=== PATIENT | female | born 1970 | race Caucasian/White ===

== ENCOUNTER 2018-07-03 14:06 | Outpatient (REF) | payer BC, SELFPAY ==
[2018-07-03 18:40] LABS: Bilirubin Negative (Negative); Blood Trace-intact (Negative); Clarity Sl Cloudy; Glucose Negative (Negative); Ketones Negative (Negative); Leukocyte Esterase Trace (Negative); Nitrite Negative (Negative); Specific Gravity 1.015 (1.005-1.025); Urobilinogen 0.2 EU/dL (Up TO 0.2)
[2018-07-03 19:35] LABS: Epithelial Cells Moderate HPF (Negative); Other Cells Negative (Negative); RBC 0-2 (0-2)
[2018-07-03 19:36] LABS: Bacteria Few HPF (Negative); C & S Indicated? No/Sq. Contamination; Casts Negative LPF (Negative); Crystals Negative HPF (Negative); Mucus Negative (Negative)
== END 2018-07-03 14:26 ==
LOC: NCHCN 14:06
PROVIDERS: PCP Nurse Practitioner Family; Visit Provider Family Medicine
DX: N32.89 Other specified disorders of bladder (principal); R10.30 Lower abdominal pain, unspecified
CPT/HCPCS: 81003; 81015

== ENCOUNTER 2018-07-07 12:04 | Inpatient (IN) | payer BC, SELFPAY ==
[2018-07-07 12:36] VITALS: BP 145/70; PULSE 93; RESP 18; TEMP 36.7; O2SAT 95
--- NOTE | 2018-07-07 13:29 | DI.CT_ITS ---
SYMPTOM/DIAGNOSIS: RLQ PAIN CT ABDOMEN AND PELVIS: CT scan of the abdomen and pelvis was performed following the uneventful administration of intravenous contrast material. The visualized lung bases are clear. There is diffuse decreased attenuation of the liver suggesting fatty infiltration. No evidence of an hepatic mass seen. The patient is status post cholecystectomy. No biliary ductal dilatation is present. The portal and superior mesenteric veins are patent. The pancreas, spleen and adrenal glands are unremarkable. The kidneys show normal and symmetric enhancement. There is a left renal cyst. No solid renal mass or obstruction is seen. The urinary bladder is intact. The reproductive organs are not visualized. The abdominal aorta is of normal caliber. No significant abdominal or pelvic ascites is present. There is diverticular disease of the descending and sigmoid colon. There is bowel wall thickening and pericolonic inflammatory change in the mid sigmoid colon consistent with acute diverticulitis. There are a few small foci of extraluminal air anterior to the affected sigmoid colon. There also appears to be a fluid collection anterior to the affected sigmoid colon and an abscess cannot be excluded. This measures approximately 4 cm. The remainder of the bowel is unremarkable. There is a normal appendix present. Note is made of a fat-containing infra-umbilical hernia. There is also a lower anterior wall hernia in the midline containing an unremarkable loop of bowel. Degenerative changes are seen in the spine. IMPRESSION: Findings consistent with acute sigmoid diverticulitis. A few foci of extraluminal air are seen adjacent to the affected bowel. There is a collection of fluid anterior to the affected bowel measuring approximately 4 cm in diameter and an abscess cannot be excluded. The findings were discussed with Sb Elkins of the Emergency Department on the date of the examination.
[2018-07-07] MEDS: Ondansetron 4 MG/2 ML VIAL IVP (13:52)
[2018-07-07] MEDS: Normal Saline 1,000 ML 1000 ML IV (13:52)
[2018-07-07] MEDS: MORPHine 10 MG/ML VIAL 4 MG IVP (13:52)
[2018-07-07 13:54] LABS: Abs Immature Grans 0.04 k/cumm (0.0-0.09); Absolute Basophil Count 0.04 k/cumm (0.0-0.2); Absolute Eosinophil Count 0.23 k/cumm (0.0-0.7); Absolute Lymphocyte Count 2.74 k/cumm (1.2-3.4); Absolute Monocyte Count 0.57 k/cumm (0.11-0.7); Absolute Neutrophil Count 5.26 k/cumm (1.2-6.7); Basophils % 0.5; Eosinophils % 2.6; HCT 42.5 % (36.0-46.0); HGB 14.4 g/dL (12.0-15.5); Immature Grans % 0.5; Lymphocytes % 30.9; Mean Corp. HGB Concentration 33.9 g/dL (32.0-36.0); Mean Corpuscular Hemoglobin 29.1 pg (27.0-33.0); Mean Corpuscular Volume 85.9 fL (80-95); Monocytes % 6.4; Neutrophils % 59.1; Platelet Count 258 x1000/uL (130-400); RBC 4.95 m/cumm (4.00-5.20); RBC Distribution Width 12.7 % (11.7-14.6); White Blood Cell Count 8.88 k/cumm (4.4-10.8)
[2018-07-07 14:05] LABS: Lipase 146 U/L (73-393)
[2018-07-07 14:08] LABS: ALT 36 U/L (12-78); AST 26 U/L (15-37); Albumin 3.2 g/dL (3.4-5.0); Alkaline Phosphatase 85 U/L (46-116); Anion Gap 13.4 mmol/L (3-11); BUN 10 mg/dL (7-18); Bilirubin, Total 0.4 mg/dL (0.2-1.0); CO2 24.6 mmol/L (21.0-32.0); Chloride 101 mmol/L (98-107); Glucose 121 mg/dL (70-100); Potassium 3.7 mmol/L (3.5-5.1); Sodium 139 mmol/L (136-145); Total Protein 8.3 g/dL (6.4-8.2)
[2018-07-07 15:00] LABS: Bilirubin Negative (Negative); Blood Negative (Negative); Clarity Clear; Glucose Negative (Negative); Ketones Negative (Negative); Leukocyte Esterase Negative (Negative); Nitrite Negative (Negative); Urobilinogen 0.2 EU/dL (Up TO 0.2)
--- NOTE | 2018-07-07 15:27 | ED.GENADUL_ITS ---
Discharge Plan Discharge Details Chief Complaint: Abd Prob Reason For Visit: PERFORATED DIVERTICULITIS Admit Date/Time: 07/07/18 16:46 Admit Provider: Renaldo Evangelista Attending Provider: Renaldo Evangelista Primary Care Provider: Danna Gonzalez ED Provider: Sb Elkins Discharge Data Discharge Date/Time-TO BE ENTERED AT DEPARTURE: 07/07/18 18:02 Medical Decision Making Patient presenting the emergency department for chief complaint of abdominal pain for the past 10 days. She states that this is suprapubic and saw primary care provider last week who thought it was a urinary tract infection and placed on Bactrim for last 3 days. Patient had a follow-up appointment today due to worsening of symptoms and they sent her to the emergency department. Patient has significant tenderness to the right lower quadrant without rebound but does have positive roving sign. Plan to check labs and CT image for concern for diverticulitis, appendicitis, or other abdominal pathology. Patient has reported full hysterectomy and oophorectomy so doubt any feminine anatomy etiology. Pending results patient given IV fluids, morphine, and Zofran. Review of labs is unremarkable nondiagnostic but review of CT imaging shows sigmoid colon diverticulitis with area of free air and fluid being seen so question of abscess. Contacted general surgery Dr. Chung for admission of the patient. He agreed to come down and evaluate the patient and admit the patient to his service. Patient was in agreement of this plan and remained stable throughout emergency department stay. Lab Data Lab results reviewed: Yes I reviewed the patient's lab results. HPI General Mode of arrival: ambulatory . Date/Time Provider Initiated Documentation: 07/07/18 12:30 . Limitations to Documentation: no limitations . Information obtained by: patient . History of Present Illness 47 year old F presents to the emergency department with the chief complaint of pelvic pain , described as moderate, with intensity rated at 7. Quality is described as aching and sharp, and is localized to the abdomen. Patient started experiencing this day(s) (4) and it has been constant. Patient did receive the following treatments prior to arrival, other Related Data Home Medications Medication Instructions Recorded Confirmed lisinopril 5 mg PO DAILY 07/07/18 07/07/18 metformin 1,000 mg PO BID 07/07/18 07/07/18 Allergies Allergy/AdvReac Type Severity Reaction Status Date / Time Penicillins Allergy Mild Hives Verified 07/07/18 16:45 metronidazole [From Flagyl] AdvReac Severe [place]/Vomi Verified 07/07/18 16:46 ting General Stated Complaint: Abd Prob SHY: 3 Review of Systems Constitutional Denies chills, Denies fever(s) and Reports poor appetite Cardiovascular Denies chest pain and Denies dyspnea Respiratory Denies dyspnea Gastrointestinal Reports as per HPI, Reports abdominal pain, Denies melena, Denies change in bowel habits, Denies constipation, Denies diarrhea, Reports nausea and Denies vomiting Genitourinary Denies hematuria, Reports pelvic pain, Denies urinary incontinence, Denies urinary hesitancy, Denies urinary urgency and Denies vaginal discharge Integumentary/Breasts Denies rash PFSH Family History Father CAD (coronary artery disease) AMI (acute myocardial infarction) Maternal Aunt Breast cancer Medical History DM2 (diabetes mellitus, type 2) (Chronic) Essential hypertension (Chronic) Morbid obesity (Chronic) Social History Smoking/Tobacco Use Status: Current every day Surgical History History of bilateral oophorectomies (Resolved) History of cholecystectomy (Resolved) History of ureter repair (Resolved) Status post complete hysterectomy (Resolved) Exam Const General: cooperative Orientation: alert, awake and oriented x3 Resp Effort & Inspection: normal respiratory effort and able to speak in complete sentences Auscultation: clear to auscultation bilaterally Cardio Rate: regular rate Rhythm: regular rhythm Heart Sounds: S1 normal and S2 normal GI Palpation: soft, no hepatosplenomegaly, not firm, no guarding, no masses, no pulsatile masses, not rigid, no splenomegaly and tender in the RLQ, at McBurney' s point and Rovsing's sign positive; not suprapubicly and Mcnair's sign negative Auscultation: normal bowel sounds Back/Spine/Pelvis Back: no CVA tenderness Neuro General: alert, awake, oriented x3, gait normal and moves all extremities Course Vital Signs Temperature 36.7 C 07/07/18 12:36 Pulse 93 H 07/07/18 12:36 Respiratory Rate 18 07/07/18 12:36 Blood Pressure 145/70 H 07/07/18 12:36 Pulse Oximetry 95 07/07/18 12:36 Temperature 36.7 C 07/07/18 12:36 Temperature Source Temporal Artery Scan 07/07/18 12:36 Pulse 93 H 07/07/18 12:36 Respiratory Rate 18 07/07/18 12:36 Respiratory Effort 07/07/18 12:39 Blood Pressure 145/70 H 07/07/18 12:36 Blood Pressure Position Sitting 07/07/18 12:36 Pulse Oximetry 95 07/07/18 12:36 Oxygen Delivery Method Room Air 07/07/18 12:36 Oxygen Flow Rate 0 07/07/18 12:36 Pain Level 7 07/07/18 12:36 Lab/Test Results Lab/Test Results: Laboratory Tests Range/Units 07/07/18 07/07/18 07/07/18 13:47 13:47 13:47 WBC (4.4-10.8) k/cumm 8.88 RBC (4.00-5.20) m/cumm 4.95 Hgb (12.0-15.5) g/dL 14.4 Hct (36.0-46.0) % 42.5 MCV (80-95) fL 85.9 MCH (27.0-33.0) pg 29.1 MCHC (32.0-36.0) g/dL 33.9 RDW (11.7-14.6) % 12.7 Plt Count (130-400) x1000/uL 258 MPV (8.0-11.0) fL 10.0 Immature Gran % 0.5 Neutrophils % 59.1 Lymphocytes % 30.9 Monocytes % 6.4 Eosinophils % 2.6 Basophils % 0.5 Absolute Neutrophils (1.2-6.7) k/cumm 5.26 Absolute Lymphocytes (1.2-3.4) k/cumm 2.74 Absolute Monocytes (0.11-0.7) k/cumm 0.57 Absolute Eosinophils (0.0-0.7) k/cumm 0.23 Absolute Basophils (0.0-0.2) k/cumm 0.04 Sodium (136-145) mmol/L 139 Potassium (3.5-5.1) mmol/L 3.7 Chloride (98-107) mmol/L 101 Carbon Dioxide (21.0-32.0) mmol/L 24.6 Anion Gap (3-11) mmol/L 13.4 H BUN (7-18) mg/dL 10 Creatinine (0.55-1.02) mg/dL 0.90 Estimated GFR/1.73 m2 (mL/min/1.73m2) >= 60.00 Glucose (70-100) mg/dL 121 H Calcium (8.5-10.1) mg/dL 9.0 Total Bilirubin (0.2-1.0) mg/dL 0.4 AST (15-37) U/L 26 ALT (12-78) U/L 36 Alkaline Phosphatase (46-116) U/L 85 Total Protein (6.4-8.2) g/dL 8.3 H Albumin (3.4-5.0) g/dL 3.2 L Lipase (73-393) U/L 146 Urine Color (Yellow) Urine Clarity Urine pH (5-8) Ur Specific [place] (1.005-1.025) Urine Protein (Negative) mg/dL Urine Ketones (Negative) mg/dL Urine Blood (Negative) Urine Nitrite (Negative) Urine Bilirubin (Negative) Urine Urobilinogen (Up TO 0.2) EU/dL Ur Leukocyte Esterase (Negative) Urine Glucose (Negative) mg/dL Range/Units 07/07/18 14:50 WBC (4.4-10.8) k/cumm RBC (4.00-5.20) m/cumm Hgb (12.0-15.5) g/dL Hct (36.0-46.0) % MCV (80-95) fL MCH (27.0-33.0) pg MCHC (32.0-36.0) g/dL RDW (11.7-14.6) % Plt Count (130-400) x1000/uL MPV (8.0-11.0) fL Immature Gran % Neutrophils % Lymphocytes % Monocytes % Eosinophils % Basophils % Absolute Neutrophils (1.2-6.7) k/cumm Absolute Lymphocytes (1.2-3.4) k/cumm Absolute Monocytes (0.11-0.7) k/cumm Absolute Eosinophils (0.0-0.7) k/cumm Absolute Basophils (0.0-0.2) k/cumm Sodium (136-145) mmol/L Potassium (3.5-5.1) mmol/L Chloride (98-107) mmol/L Carbon Dioxide (21.0-32.0) mmol/L Anion Gap (3-11) mmol/L BUN (7-18) mg/dL Creatinine (0.55-1.02) mg/dL Estimated GFR/1.73 m2 (mL/min/1.73m2) Glucose (70-100) mg/dL Calcium (8.5-10.1) mg/dL Total Bilirubin (0.2-1.0) mg/dL AST (15-37) U/L ALT (12-78) U/L Alkaline Phosphatase (46-116) U/L Total Protein (6.4-8.2) g/dL Albumin (3.4-5.0) g/dL Lipase (73-393) U/L Urine Color (Yellow) Yellow Urine Clarity Clear Urine pH (5-8) 6.0 Ur Specific [place] (1.005-1.025) 1.010 Urine Protein (Negative) mg/dL Negative Urine Ketones (Negative) mg/dL Negative Urine Blood (Negative) Negative Urine Nitrite (Negative) Negative Urine Bilirubin (Negative) Negative Urine Urobilinogen (Up TO 0.2) EU/dL 0.2 Ur Leukocyte Esterase (Negative) Negative Urine Glucose (Negative) mg/dL Negative
[2018-07-07] MEDS: Omnipaque 350 MG/ML 100 ML BTL IJ (15:45)
[2018-07-07] MEDS: HYDROmorphone 2 MG/ML VIAL 0.5 MG IVP (17:13)
--- NOTE | 2018-07-07 17:20 | HPE_ITS ---
Date of service: 07/07/18 Time of Service: 17:18 Assessment and Plan (1) Perforation of sigmoid colon due to diverticulitis: Start date: 07/07/18 Start time: 17:43 Current visit: Yes Status: Acute Reviewed the physical and diagnostic findings with Ms Parada. Recommended trial of conservative therapy with abx, pain control, fluids, bowel rest. I did discuss that this could fail, or she may need further imaging. Currently no drainable collection seen, but could still develop abscess; therefor may repeat CT A/P to see if a drainable collection develops, or may require surgery on emergent basis. She state her understanding of the plan. No promises made, or guarantees given. History of Present Illness Chief Complaint: Abdominal Pain Narrative: 47 y/o woman presents to the ER with 10 days of vague abdominal which has been progressively worsening. She has had associated nausea, vomiting , diarrhea. She was seen by her PCP and diagnosed with a UTI, culture growing E. coli, and started on bactrim. She failed to improved on abx after 4 days. She denies fever, chills. Work up in the ER showed perforated diverticulitis with free air. General surgery was consulted for admission. Review of Systems Constitutional Denies body ache(s), Denies chills, Reports difficulty sleeping, Reports fatigue , Denies fever(s), Denies headache(s), Reports malaise, Reports poor appetite and Reports weakness Eyes Denies blurry vision, Denies diplopia and Denies loss of vision ENT Denies abnormal hearing, Denies vertigo, Denies dizziness, Denies headache(s), Denies hearing loss, Denies hoarseness, Denies epistaxis and Denies tinnitus Cardiovascular Denies chest pain at rest, Denies syncope, Denies rapid heart rate, Denies irregular heart rhythm, Denies lightheadedness and Denies dyspnea on exertion Respiratory Denies chest congestion, Denies cough, Denies dyspnea on exertion and Denies wheezing Gastrointestinal Reports abdominal pain, Denies hematochezia, Denies constipation, Denies heartburn, Reports diarrhea, Reports nausea and Reports vomiting Genitourinary Denies dysuria, Denies urinary hesitancy and Denies urinary urgency Musculoskeletal Denies back pain, Denies myalgias, Denies arthralgias, Denies joint swelling and Denies stiffness Integumentary/Breasts Denies non-healing lesions, Denies unusual bruising and Denies jaundice Neurologic Denies abnormal hearing, Denies confusion, Denies vertigo, Denies dizziness, Denies syncope, Denies headache(s), Denies focal weakness, Denies loss of vision , Denies seizure-like activity and Reports weakness Psychiatric Denies abnormal sleep pattern, Denies confusion, Denies difficulty concentrating and Denies irritability Endocrine Reports fatigue Hematologic/Lymphatic Denies easy bleeding and Denies easy bruising Allergic/Immunologic Denies wheezing PFSH Family History Father CAD (coronary artery disease) AMI (acute myocardial infarction) Maternal Aunt Breast cancer Medical History DM2 (diabetes mellitus, type 2) (Chronic) Essential hypertension (Chronic) Morbid obesity (Chronic) Social History Smoking/Tobacco Use Status: Current every day Surgical History History of bilateral oophorectomies (Resolved) History of cholecystectomy (Resolved) History of ureter repair (Resolved) Status post complete hysterectomy (Resolved) Meds Home Medications Medication Instructions Recorded Confirmed Type lisinopril 5 mg PO DAILY 07/07/18 07/07/18 History metformin 1,000 mg PO BID 07/07/18 07/07/18 History Allergies Allergy/AdvReac Type Severity Reaction Status Date / Time Penicillins Allergy Mild Hives Verified 07/07/18 16:45 metronidazole [From Flagyl] AdvReac Severe [place]/Vomi Verified 07/07/18 16:46 ting Exam Const General: cooperative, well developed, in distress mild and ill appearing Nutritional Appearance: well nourished, obese morbidly obese and overweight Orientation: alert, awake and oriented x3 [facility]: normal to inspection, normocephalic and atraumatic Ears: hearing grossly normal bilaterally General nose exam: external nose normal Face and sinus: normal facial exam Mouth: oral mucosa abnormal other (dry) Throat: other (Mallampati III) Eyes General: appearance normal, both eyes and all related structures Periorbital: periorbital findings normal Sclera: sclerae normal Pupils: PERRL EOM: EOM intact bilaterally Neck Neck: normal visual inspection, trachea midline and supple Resp Effort & Inspection: normal respiratory effort Auscultation: diminished lung sounds bilaterally in the lower lung [place] Cardio Jugular venous pressure: no JVD Rate: regular rate Rhythm: regular rhythm Pulses: normal peripheral pulses GI Inspection: non-distended, large pannus and obesity Palpation: tender in the LLQ (TTP no rebound) and suprapubicly (TTP, no rebound) Rectal Exam - female: deferred Skin General skin exam: no rashes or lesions noted and turgor normal Neuro General: moves all extremities, no focal motor deficits and CN's II-XI intact bilaterally Extrem General: normal capillary refill and no clubbing, cyanosis or edema Psych Appearance: disheveled Mental Status: mental status grossly normal Speech and Movement: speech and movement normal Mood: anxious mood Affect: anxious affect Attitude: cooperative Thought Process: normal Judgment: judgment good Results Imaging Imaging Studies: CT:CT abdomen & pelvis w SYMPTOM/DIAGNOSIS: RLQ PAIN CT ABDOMEN AND PELVIS: CT scan of the abdomen and pelvis was performed following the uneventful administration of intravenous contrast material. The visualized lung bases are clear. There is diffuse decreased attenuation of the liver suggesting fatty infiltration. No evidence of an hepatic mass seen. The patient is status post cholecystectomy. No biliary ductal dilatation is present. The portal and superior mesenteric veins are patent. The pancreas, spleen and adrenal glands are unremarkable. The kidneys show normal and symmetric enhancement. There is a left renal cyst. No solid renal mass or obstruction is seen. The urinary bladder is intact. The reproductive organs are not visualized. The abdominal aorta is of normal caliber. No significant abdominal or pelvic ascites is present. There is diverticular disease of the descending and sigmoid colon. There is bowel wall thickening and pericolonic inflammatory change in the mid sigmoid colon consistent with acute diverticulitis. There are a few small foci of extraluminal air anterior to the affected sigmoid colon. There also appears to be a fluid collection anterior to the affected sigmoid colon and an abscess cannot be excluded. This measures approximately 4 cm. The remainder of the bowel is unremarkable. There is a normal appendix present. Note is made of a fat-containing infra-umbilical hernia. There is also a lower anterior wall hernia in the midline containing an unremarkable loop of bowel. Degenerative changes are seen in the spine. IMPRESSION: Findings consistent with acute sigmoid diverticulitis. A few foci of extraluminal air are seen adjacent to the affected bowel. There is a collection of fluid anterior to the affected bowel measuring approximately 4 cm in diameter and an abscess cannot be excluded. The findings were discussed with Sb Elkins of the Emergency Department on the date of the examination. Labs : 07/08/18 06:45 07/08/18 06:45 Laboratory Results - last 24 hr 07/07/18 07/07/18 07/07/18 13:47 13:47 13:47 WBC 8.88 RBC 4.95 Hgb 14.4 Hct 42.5 MCV 85.9 MCH 29.1 MCHC 33.9 RDW 12.7 Plt Count 258 MPV 10.0 Immature Gran % 0.5 Neutrophils % 59.1 Lymphocytes % 30.9 Monocytes % 6.4 Eosinophils % 2.6 Basophils % 0.5 Absolute Neutrophils 5.26 Absolute Lymphocytes 2.74 Absolute Monocytes 0.57 Absolute Eosinophils 0.23 Absolute Basophils 0.04 Sodium 139 Potassium 3.7 Chloride 101 Carbon Dioxide 24.6 Anion Gap 13.4 H BUN 10 Creatinine 0.90 Estimated GFR/1.73 m2 >= 60.00 Glucose 121 H Calcium 9.0 Magnesium Total Bilirubin 0.4 AST 26 ALT 36 Alkaline Phosphatase 85 Total Protein 8.3 H Albumin 3.2 L Lipase 146 Urine Color Urine Clarity Urine pH Ur Specific [place] Urine Protein Urine Ketones Urine Blood Urine Nitrite Urine Bilirubin Urine Urobilinogen Ur Leukocyte Esterase Urine Glucose 07/07/18 07/07/18 14:50 16:54 WBC RBC Hgb Hct MCV MCH MCHC RDW Plt Count MPV Immature Gran % Neutrophils % Lymphocytes % Monocytes % Eosinophils % Basophils % Absolute Neutrophils Absolute Lymphocytes Absolute Monocytes Absolute Eosinophils Absolute Basophils Sodium Potassium Chloride Carbon Dioxide Anion Gap BUN Creatinine Estimated GFR/1.73 m2 Glucose Calcium Magnesium Cancelled Total Bilirubin AST ALT Alkaline Phosphatase Total Protein Albumin Lipase Urine Color Yellow Urine Clarity Clear Urine pH 6.0 Ur Specific [place] 1.010 Urine Protein Negative Urine Ketones Negative Urine Blood Negative Urine Nitrite Negative Urine Bilirubin Negative Urine Urobilinogen 0.2 Ur Leukocyte Esterase Negative Urine Glucose Negative Last Vital Signs Temp 36.7 C 07/07/18 12:36 Pulse 93 H 07/07/18 12:36 Resp 18 07/07/18 12:36 BP 145/70 H 07/07/18 12:36 Pulse Ox 95 07/07/18 12:36
[2018-07-07] MEDS: Ketorolac 15 MG/ML VIAL IVP ×2 (17:33→23:18)
[2018-07-07] MEDS: ACETAMINOPHEN 1,000 MG/100 ML BTL 400 MG IVPB (17:35)
[2018-07-07 18:01] VITALS: BP 116/76; PULSE 82; RESP 18; TEMP 36; O2SAT 97
[2018-07-07] MEDS: Lactated Ringers 1,000 ML 150 ML IV (18:03)
[2018-07-07] MEDS: CIPROFLOXACIN 400 MG/200 ML BAG 200 MG IVPB (18:11)
[2018-07-07] MEDS: Enoxaparin 40 MG/0.4 ML SYR SC (18:12)
[2018-07-07] MEDS: Pantoprazole 40 MG VIAL IVP (18:12)
[2018-07-07] MEDS: Normal Saline Flush 10 ML SYR IVP ×2 (18:12→21:52)
[2018-07-07 20:00] VITALS: BP 112/72; PULSE 73; RESP 17; TEMP 36.6; O2SAT 98
[2018-07-07] MEDS: Clindamycin 900 MG/50 ML BAG IVPB (20:04)
[2018-07-07] MEDS: diphenhydrAMINE 50 MG/ML VIAL 25 MG IM/IVP (21:52)
[2018-07-07 23:34] VITALS: BP 106/71; PULSE 69; RESP 16; TEMP 36.7; O2SAT 96
[2018-07-08] MEDS: ACETAMINOPHEN 1,000 MG/100 ML BTL 400 MG IVPB ×3 (02:00→17:06)
[2018-07-08] MEDS: Clindamycin 900 MG/50 ML BAG IVPB (02:28)
[2018-07-08] MEDS: Lactated Ringers 1,000 ML 150 ML IV ×2 (03:23→14:07)
[2018-07-08 04:00] VITALS: BP 113/67; PULSE 70; RESP 16; TEMP 36.7; O2SAT 98
[2018-07-08] MEDS: Ketorolac 15 MG/ML VIAL IVP ×4 (06:06→23:49)
[2018-07-08] MEDS: CIPROFLOXACIN 400 MG/200 ML BAG 200 MG IVPB ×2 (06:06→18:26)
[2018-07-08 07:00] LABS: Abs Immature Grans 0.03 k/cumm (0.0-0.09); Absolute Basophil Count 0.03 k/cumm (0.0-0.2); Absolute Lymphocyte Count 1.76 k/cumm (1.2-3.4); Absolute Monocyte Count 0.35 k/cumm (0.11-0.7); Absolute Neutrophil Count 3.22 k/cumm (1.2-6.7); Basophils % 0.5; Eosinophils % 3.6; HCT 39.6 % (36.0-46.0); HGB 13.4 g/dL (12.0-15.5); Immature Grans % 0.5; Lymphocytes % 31.5; Mean Corp. HGB Concentration 33.8 g/dL (32.0-36.0); Mean Corpuscular Hemoglobin 29.4 pg (27.0-33.0); Mean Corpuscular Volume 86.8 fL (80-95); Mean Platelet Volume 10.1 fL (8.0-11.0); Monocytes % 6.3; Neutrophils % 57.6; Platelet Count 223 x1000/uL (130-400); RBC 4.56 m/cumm (4.00-5.20); RBC Distribution Width 12.9 % (11.7-14.6); White Blood Cell Count 5.59 k/cumm (4.4-10.8)
--- NOTE | 2018-07-08 07:08 | W.PM.PROGNOT ---
Documented by User: KUSHAL Jones 07/08/18 13:00 Date of Service Date of service: 07/08/18 Time of Service: 07:09 Assessment and Plan (1) Perforation of sigmoid colon due to diverticulitis: Start date: 07/07/18 Start time: 17:43 Current visit: Yes Status: Acute A// Ms. Parada was afebrile overnight. She continues to have supra pubic pain associated with nausea. P// DIET- NPO ABX- Continue Clindamycin and Ciprofloxacin Pain- Continue pain management with hydromorphone, toradol and tylenol. Resp- Encouraged out of bed activities with deep breathing techniques and ambulation as tolerated. GI- Continue bowel rest CARDIO- Continue to watch BPs. Currently stable; If BPs elevate with restart Lisinopril. ACTIVITY- Ambulation as tolerated. Subjective Patient reports: still having pain and voiding w/o difficulty; denies bowel movement and shortness of breath Interval history since last seen: Ms. Parada reports that she slept okay over night. She continues to have nausea w/o vomiting and supra-pubic abdominal pain. She denies having a BM. She denies dysuria, urinary urgency or frequency. She denies fevers, chills or night sweats. Exam Const General: cooperative and acute distress moderate Orientation: alert and oriented x3 Resp Effort & Inspection: normal respiratory effort, no audible wheezes and no cough Auscultation: clear to auscultation bilaterally Cardio Jugular venous pressure: no JVD Rate: regular rate Rhythm: regular rhythm Heart Sounds: S1 normal, S2 normal, no murmurs and no rubs GI Inspection: normal to inspection Palpation: soft and tender in the LLQ, in the RLQ and suprapubicly (Most severe over suprpubic region. ) Auscultation: normal bowel sounds Objective Objective Clinical Data: Abnormal lab results 07/07/18 Range/Units 13:47 Anion Gap 13.4 H (3-11) mmol/L Glucose 121 H (70-100) mg/dL Total Protein 8.3 H (6.4-8.2) g/dL Albumin 3.2 L (3.4-5.0) g/dL Vital Signs Temperature 36.7 C 07/08/18 04:00 Temperature Source Tympanic 07/08/18 04:00 Pulse 70 07/08/18 04:00 Pulse Rhythm Regular 07/07/18 20:00 Respiratory Rate 16 07/08/18 04:00 Respiratory Effort 07/07/18 20:00 Respiratory Depth Normal 07/07/18 20:00 Respiratory Pattern Normal 07/07/18 20:00 Blood Pressure 113/67 07/08/18 04:00 Blood Pressure Position Sitting 07/07/18 12:36 Pulse Oximetry 98 07/08/18 04:00 Oxygen Delivery Method Room Air 07/08/18 04:00 Oxygen Flow Rate 0 07/08/18 04:00 Pain Level 0 07/08/18 04:00 Intake & Output 07/07/18 07/07/18 07/08/18 11:59 23:59 11:59 Intake Total 1550 / 1550 1505 / 1505 Output Total 200 / 200 Balance 1550 / 1550 1305 / 1305 Weight 127.006 kg Intake: IV 1310 / 1310 1505 / 1505 Oral 240 / 240 Output: Urine 200 / 200 Other: Urine Color Dark Sharmaine Urine Appearance Clear Comment pt missed hat. Voiding Methods Toilet Toilet Laboratory Results WBC 5.59 k/cumm (4.4-10.8) D 07/08/18 06:45 RBC 4.56 m/cumm (4.00-5.20) 07/08/18 06:45 Hgb 13.4 g/dL (12.0-15.5) 07/08/18 06:45 Hct 39.6 % (36.0-46.0) 07/08/18 06:45 MCV 86.8 fL (80-95) 07/08/18 06:45 MCH 29.4 pg (27.0-33.0) 07/08/18 06:45 MCHC 33.8 g/dL (32.0-36.0) 07/08/18 06:45 RDW 12.9 % (11.7-14.6) 07/08/18 06:45 Plt Count 223 x1000/uL (130-400) 07/08/18 06:45 MPV 10.1 fL (8.0-11.0) 07/08/18 06:45 Immature Gran % 0.5 07/08/18 06:45 Neutrophils % 57.6 07/08/18 06:45 Lymphocytes % 31.5 07/08/18 06:45 Monocytes % 6.3 07/08/18 06:45 Eosinophils % 3.6 07/08/18 06:45 Basophils % 0.5 07/08/18 06:45 Absolute Neutrophils 3.22 k/cumm (1.2-6.7) 07/08/18 06:45 Absolute Lymphocytes 1.76 k/cumm (1.2-3.4) 07/08/18 06:45 Absolute Monocytes 0.35 k/cumm (0.11-0.7) 07/08/18 06:45 Absolute Eosinophils 0.20 k/cumm (0.0-0.7) 07/08/18 06:45 Absolute Basophils 0.03 k/cumm (0.0-0.2) 07/08/18 06:45 Sodium 139 mmol/L (136-145) 07/07/18 13:47 Potassium 3.7 mmol/L (3.5-5.1) 07/07/18 13:47 Chloride 101 mmol/L (98-107) 07/07/18 13:47 Carbon Dioxide 24.6 mmol/L (21.0-32.0) 07/07/18 13:47 Anion Gap 13.4 mmol/L (3-11) H 07/07/18 13:47 BUN 10 mg/dL (7-18) 07/07/18 13:47 Creatinine 0.90 mg/dL (0.55-1.02) 07/07/18 13:47 Estimated GFR/1.73 m2 >= 60.00 (mL/min/1.73m2) 07/07/18 13:47 Glucose 121 mg/dL (70-100) H 07/07/18 13:47 Calcium 9.0 mg/dL (8.5-10.1) 07/07/18 13:47 Magnesium Cancelled 07/07/18 16:54 Total Bilirubin 0.4 mg/dL (0.2-1.0) 07/07/18 13:47 AST 26 U/L (15-37) 07/07/18 13:47 ALT 36 U/L (12-78) 07/07/18 13:47 Alkaline Phosphatase 85 U/L (46-116) 07/07/18 13:47 Total Protein 8.3 g/dL (6.4-8.2) H 07/07/18 13:47 Albumin 3.2 g/dL (3.4-5.0) L 07/07/18 13:47 Lipase 146 U/L (73-393) 07/07/18 13:47 Urine Color Yellow (Yellow) 07/07/18 14:50 Urine Clarity Clear 07/07/18 14:50 Urine pH 6.0 (5-8) 07/07/18 14:50 Ur Specific [place] 1.010 (1.005-1.025) 07/07/18 14:50 Urine Protein Negative mg/dL (Negative) 07/07/18 14:50 Urine Ketones Negative mg/dL (Negative) 07/07/18 14:50 Urine Blood Negative (Negative) 07/07/18 14:50 Urine Nitrite Negative (Negative) 07/07/18 14:50 Urine Bilirubin Negative (Negative) 07/07/18 14:50 Urine Urobilinogen 0.2 EU/dL (Up TO 0.2) 07/07/18 14:50 Ur Leukocyte Esterase Negative (Negative) 07/07/18 14:50 Urine Glucose Negative mg/dL (Negative) 07/07/18 14:50
[2018-07-08 07:13] LABS: Anion Gap 10.5 mmol/L (3-11); BUN 11 mg/dL (7-18); CO2 25.5 mmol/L (21.0-32.0); CREATININE 1.04 mg/dL (0.55-1.02); Calcium 8.5 mg/dL (8.5-10.1); Chloride 102 mmol/L (98-107); Estimated GFR 57.05 (mL/min/1.73m2); Glucose 141 mg/dL (70-100); Magnesium 2.1 mg/dL (1.8-2.4); Potassium 3.9 mmol/L (3.5-5.1); Sodium 138 mmol/L (136-145)
[2018-07-08 07:27] VITALS: BP 123/78; PULSE 77; RESP 18; TEMP 36.4; O2SAT 99
[2018-07-08 07:33] LABS: C-Reactive Protein 6.35 mg/dL (0.0-0.3)
[2018-07-08] MEDS: Normal Saline 50 ML IV ×2 (07:57→22:07)
[2018-07-08 08:26] LABS: ESR 65 MM/HR (0-20)
[2018-07-08] MEDS: CLINDAMYCIN 900 MG/50 ML BAG 50 MG IVPB ×3 (08:52→20:22)
--- NOTE | 2018-07-08 10:59 | INITIAL_ITS ---
- If Service Date Differs Date of service: 07/08/18 Time of Service: 10:59 Care Management Initial Assess REASON FOR HOSPITALIZATION:: Ruptured diverticulitis PAST MEDICAL HISTORY/PAST SURGICAL HISTORY:: DM2, HTN. Surgical hx: bilat oophorectomies, cholecystectomy, hysterectomy PREVIOUS FUNCTIONAL STATUS/SOCIAL/FAMILY SUPPORTS:: Radha lives in [place], [place] with her spouse Ascencion. She is independent at baseline. CURRENT FUNCTIONAL STATUS:: Radha is sitting up in bed she is on the phone and not able to speak with CM at this time. Requested CM return later in the day. ADVANCE DIRECTIVES:: None on file at [facility] Has patient been provided with information about the portal?: No Did the patient sign up for the portal?: No CODE STATUS:: Full Code INSURANCE COVERAGE / FINANCIAL ISSUES:: BCBS CURRENT HOME/COMMUNITY SERVICES/EQUIPMENT:: None at this time. PRIMARY CARE PHYSICIAN:: Danna Gonzalez APRN POTENTIAL DISCHARGE NEEDS:: Follow up appointment with provider and surgical provider as directed. PATIENT/FAMILY EDUCATION NEEDS:: Discharge education, limitations and follow up plan of care. ANTICIPATED BARRIERS TO DISCHARGE:: None identified TRANSPORTATION:: Via private car with family at time of discharge. PLAN:: Radha is currently receiving IV fluids, pain management and IV antibiotics. She will discharge home when medically ready anticipate no addtional services at time of discharge. CM will continue to proivde support to patient discharge planning.
[2018-07-08 11:15] VITALS: BP 122/55; PULSE 78; RESP 19; TEMP 36.7; O2SAT 95
--- NOTE | 2018-07-08 11:59 | PHARADMIT ---
Addendum entered by Sarbjit Stewart III 07/09/18 12:55: Pharmacy Note Subjective MD starting clears. Had BM, cramping has lessened Objective VS-OK pain:09/11 Lytes,SCr,WBC,Plts-OK H&H-12.7/37.6 Had BM Assessment IV Cipro & Cleocin continue. pain managed with Dilaudid, Toradol & APAP Plan Start ambulatin. Awaiting recovery Original Note: Admission Pharmacy Clinical Review PERFORATED DIVERTICULITIS Code Status Full Code Current Weight Wgt- 127 kg Renally Cleared and Narrow Therapeutic Index Meds CrCl~68.1 mL/min Meds-OK QTc Value / Action Taken NA BP Control, Fever BP- 123/78 Tmax- 36.7C Electrolytes reviewed Na- 138 K+3.9 Mag-2.1 DVT Prophylaxis Lovenox Opiate Usage / Scheduled Bowel Regimen Ordered No Yes Plt/SCr for Heparin / Enoxaparin Plts- 223 SCr-1.04 INR for Warfarin na H/H stable, WBC/Bands H&H- 13.4/39.6 WBC- 5.59 Antibiotic appropriateness Clindamycin, Cipro IV Cultures and Sensitivities none Surgical ABX d/c within 24 hr na DM control / Insulin Dosing BG- 141 Aspart Heart Failure (Check EF%) (EDEN's, B-Block, Diuretics) none IV to PO Switch No Home Meds Reviewed yes Home Meds Not Ordered Lisinopril, Metformin Comments
[2018-07-08 16:06] VITALS: BP 123/81; PULSE 75; RESP 18; TEMP 36; O2SAT 98
[2018-07-08] MEDS: Pantoprazole 40 MG VIAL IVP (17:06)
[2018-07-08] MEDS: Enoxaparin 40 MG/0.4 ML SYR SC (17:06)
[2018-07-08] MEDS: Normal Saline Flush 10 ML SYR IVP (17:06)
--- NOTE | 2018-07-08 17:06 | CHAPLAIN ---
I introduced myself to Radha, explained my role and offered support.
[2018-07-08 19:36] VITALS: BP 112/64; PULSE 68; RESP 18; TEMP 36.6; O2SAT 98
[2018-07-08 23:35] VITALS: BP 129/81; PULSE 68; RESP 15; TEMP 36.3; O2SAT 98
[2018-07-09] MEDS: Lactated Ringers 1,000 ML 150 ML IV ×3 (01:07→21:18)
[2018-07-09] MEDS: ACETAMINOPHEN 1,000 MG/100 ML BTL 400 MG IVPB ×3 (01:45→18:46)
[2018-07-09] MEDS: CLINDAMYCIN 900 MG/50 ML BAG 50 MG IVPB ×4 (02:07→21:19)
[2018-07-09 03:38] VITALS: BP 136/83; PULSE 71; RESP 18; TEMP 36.4; O2SAT 98
[2018-07-09] MEDS: CIPROFLOXACIN 400 MG/200 ML BAG 200 MG IVPB ×2 (06:01→19:06)
[2018-07-09] MEDS: Ketorolac 15 MG/ML VIAL IVP ×3 (06:01→18:50)
[2018-07-09 07:14] LABS: Abs Immature Grans 0.03 k/cumm (0.0-0.09); Absolute Basophil Count 0.02 k/cumm (0.0-0.2); Absolute Eosinophil Count 0.16 k/cumm (0.0-0.7); Absolute Lymphocyte Count 1.41 k/cumm (1.2-3.4); Absolute Monocyte Count 0.26 k/cumm (0.11-0.7); Absolute Neutrophil Count 2.34 k/cumm (1.2-6.7); Basophils % 0.5; Eosinophils % 3.8; HCT 37.6 % (36.0-46.0); HGB 12.7 g/dL (12.0-15.5); Immature Grans % 0.7; Lymphocytes % 33.4; Mean Corp. HGB Concentration 33.8 g/dL (32.0-36.0); Mean Corpuscular Hemoglobin 28.9 pg (27.0-33.0); Mean Corpuscular Volume 85.6 fL (80-95); Mean Platelet Volume 9.7 fL (8.0-11.0); Monocytes % 6.2; Neutrophils % 55.4; Platelet Count 233 x1000/uL (130-400); RBC 4.39 m/cumm (4.00-5.20); RBC Distribution Width 12.3 % (11.7-14.6); White Blood Cell Count 4.22 k/cumm (4.4-10.8)
[2018-07-09 07:27] LABS: Anion Gap 10.2 mmol/L (3-11); BUN 8 mg/dL (7-18); CO2 24.8 mmol/L (21.0-32.0); CREATININE 0.78 mg/dL (0.55-1.02); Calcium 8.5 mg/dL (8.5-10.1); Chloride 104 mmol/L (98-107); Glucose 143 mg/dL (70-100); Potassium 3.8 mmol/L (3.5-5.1); Sodium 139 mmol/L (136-145)
[2018-07-09 07:45] VITALS: BP 133/87; PULSE 73; RESP 18; TEMP 36.3; O2SAT 98
[2018-07-09] MEDS: HYDROmorphone 2 MG/ML VIAL 0.5 MG IVP (09:27)
[2018-07-09] MEDS: Normal Saline Flush 10 ML SYR IVP ×3 (09:28→21:18)
--- NOTE | 2018-07-09 11:11 | PDOC.CMPRO ---
- If Service Date Differs Date of service: 07/09/18 Time of Service: 11:11 Care Management Progress Note S/O: CM met with aRdha and her spouse Ascencion at the bedside. Her diet has been advances to clear liquids. She is receiving IV pain management, fluids and antibiotics. She has short term disability paperwork to be completed by . She works full-time at [employer] locally. She will send the information from the [employer] to CM and CM will assist in completing. A: Radha is a 47 year old female admitted with ruptured diverticulitis P: Radha is currently receiving IV fluids, pain management and IV antibiotics. She will discharge home when medically ready anticipate no additional services at time of discharge. CM will assist Radha in completing her short term disability paperwork. CM will continue to provide support to patient discharge planning.
[2018-07-09 11:15] VITALS: BP 127/83; PULSE 72; RESP 18; TEMP 36.8; O2SAT 98
--- NOTE | 2018-07-09 11:15 | CMPROGNOTE_ITS ---
- If Service Date Differs Date of service: 07/09/18 Time of Service: 11:11 Care Management Progress Note S/O: CM met with Radha and her spouse Ascencion at the bedside. Her diet has been advances to clear liquids. She is receiving IV pain management, fluids and antibiotics. She has short term disability paperwork to be completed by . She works full-time at [employer] locally. She will send the information from the [employer] to CM and CM will assist in completing. A: Radha is a 47 year old female admitted with ruptured diverticulitis P: Radha is currently receiving IV fluids, pain management and IV antibiotics. She will discharge home when medically ready anticipate no additional services at time of discharge. CM will assist Radha in completing her short term disability paperwork. CM will continue to provide support to patient discharge planning.
--- NOTE | 2018-07-09 12:05 | PGE_ITS ---
Documented by User: KUSHAL Jones 07/09/18 12:07 Date of Service Date of service: 07/09/18 Time of Service: 12:00 Assessment and Plan (1) Perforation of sigmoid colon due to diverticulitis: Start date: 07/07/18 Start time: 17:43 Current visit: Yes Status: Acute DIET- Will start clear liquids today. ABX- Continue Clindamycin and Ciprofloxacin Pain- Continue pain management with hydromorphone, toradol and tylenol. Resp- Encouraged out of bed activities with deep breathing techniques and ambulation as tolerated. CARDIO- Continue to watch BPs. Currently stable; If BPs elevate with restart Lisinopril. GI- Nausea has improved. Phenergren PRN. ACTIVITY- Ambulation as tolerated. Subjective Patient reports: denies vomiting and fever Interval history since last seen: Patient reports that her abdominal pain has decreased in intensity and her nausea has improved. She continues to have supra- pubic abdominal pain. She reports that early this morning she had a BM. Following this she had some mild abdominal cramping which has since resolved. Exam Const General: cooperative, comfortable and acute distress mild Orientation: alert and oriented x3 Resp Effort & Inspection: normal respiratory effort, no audible wheezes and no cough Auscultation: clear to auscultation bilaterally Cardio Jugular venous pressure: no JVD Rate: regular rate Rhythm: regular rhythm Heart Sounds: S1 normal, S2 normal and no murmurs GI Palpation: soft and tender suprapubicly Auscultation: normal bowel sounds Objective Objective Clinical Data: Abnormal lab results 07/09/18 07/09/18 Range/Units 06:50 06:50 WBC 4.22 L (4.4-10.8) k/cumm Glucose 143 H (70-100) mg/dL Vital Signs Temperature 36.8 C 07/09/18 11:15 Temperature Source Tympanic 07/09/18 11:15 Pulse 72 07/09/18 11:15 Pulse Rhythm Regular 07/09/18 08:30 Respiratory Rate 18 07/09/18 11:15 Respiratory Effort 07/09/18 08:30 Respiratory Depth Normal 07/09/18 08:30 Respiratory Pattern Normal 07/09/18 08:30 Blood Pressure 127/83 07/09/18 11:15 Blood Pressure Position Sitting 07/07/18 12:36 Pulse Oximetry 98 07/09/18 11:15 Oxygen Delivery Method Room Air 07/09/18 11:15 Oxygen Flow Rate 0 07/09/18 11:15 Pain Level 4 07/09/18 10:27 Intake & Output 07/08/18 07/08/18 07/09/18 11:59 23:59 11:59 Intake Total 2450 / 2450 1401.417 / 6106.812 5195 / 1355 Output Total 500 / 500 800 / 800 1310 / 1310 Balance 1950 / 1950 601.417 / 601.417 45 / 45 Intake: IV 2450 / 2450 1401.417 / 1401.417 985 / 985 Oral 370 / 370 Output: Urine 500 / 500 800 / 800 1310 / 1310 Other: Urine Color Dark Sharmaine Yellow Urine Appearance Clear Clear Clear Voiding Methods Toilet Toilet Toilet Laboratory Results WBC 4.22 k/cumm (4.4-10.8) L 07/09/18 06:50 RBC 4.39 m/cumm (4.00-5.20) 07/09/18 06:50 Hgb 12.7 g/dL (12.0-15.5) 07/09/18 06:50 Hct 37.6 % (36.0-46.0) 07/09/18 06:50 MCV 85.6 fL (80-95) 07/09/18 06:50 MCH 28.9 pg (27.0-33.0) 07/09/18 06:50 MCHC 33.8 g/dL (32.0-36.0) 07/09/18 06:50 RDW 12.3 % (11.7-14.6) 07/09/18 06:50 Plt Count 233 x1000/uL (130-400) 07/09/18 06:50 MPV 9.7 fL (8.0-11.0) 07/09/18 06:50 Immature Gran % 0.7 07/09/18 06:50 Neutrophils % 55.4 07/09/18 06:50 Lymphocytes % 33.4 07/09/18 06:50 Monocytes % 6.2 07/09/18 06:50 Eosinophils % 3.8 07/09/18 06:50 Basophils % 0.5 07/09/18 06:50 Absolute Neutrophils 2.34 k/cumm (1.2-6.7) 07/09/18 06:50 Absolute Lymphocytes 1.41 k/cumm (1.2-3.4) 07/09/18 06:50 Absolute Monocytes 0.26 k/cumm (0.11-0.7) 07/09/18 06:50 Absolute Eosinophils 0.16 k/cumm (0.0-0.7) 07/09/18 06:50 Absolute Basophils 0.02 k/cumm (0.0-0.2) 07/09/18 06:50 ESR 65 MM/HR (0-20) H 07/08/18 06:45 Sodium 139 mmol/L (136-145) 07/09/18 06:50 Potassium 3.8 mmol/L (3.5-5.1) 07/09/18 06:50 Chloride 104 mmol/L (98-107) 07/09/18 06:50 Carbon Dioxide 24.8 mmol/L (21.0-32.0) 07/09/18 06:50 Anion Gap 10.2 mmol/L (3-11) 07/09/18 06:50 BUN 8 mg/dL (7-18) 07/09/18 06:50 Creatinine 0.78 mg/dL (0.55-1.02) 07/09/18 06:50 Estimated GFR/1.73 m2 >= 60.00 (mL/min/1.73m2) 07/09/18 06:50 Glucose 143 mg/dL (70-100) H 07/09/18 06:50 Calcium 8.5 mg/dL (8.5-10.1) 07/09/18 06:50 Magnesium 2.0 mg/dL (1.8-2.4) 07/09/18 06:50 Total Bilirubin 0.4 mg/dL (0.2-1.0) 07/07/18 13:47 AST 26 U/L (15-37) 07/07/18 13:47 ALT 36 U/L (12-78) 07/07/18 13:47 Alkaline Phosphatase 85 U/L (46-116) 07/07/18 13:47 C-Reactive Protein 6.35 mg/dL (0.0-0.3) H 07/08/18 06:45 Total Protein 8.3 g/dL (6.4-8.2) H 07/07/18 13:47 Albumin 3.2 g/dL (3.4-5.0) L 07/07/18 13:47 Lipase 146 U/L (73-393) 07/07/18 13:47 Urine Color Yellow (Yellow) 07/07/18 14:50 Urine Clarity Clear 07/07/18 14:50 Urine pH 6.0 (5-8) 07/07/18 14:50 Ur Specific [place] 1.010 (1.005-1.025) 07/07/18 14:50 Urine Protein Negative mg/dL (Negative) 07/07/18 14:50 Urine Ketones Negative mg/dL (Negative) 07/07/18 14:50 Urine Blood Negative (Negative) 07/07/18 14:50 Urine Nitrite Negative (Negative) 07/07/18 14:50 Urine Bilirubin Negative (Negative) 07/07/18 14:50 Urine Urobilinogen 0.2 EU/dL (Up TO 0.2) 07/07/18 14:50 Ur Leukocyte Esterase Negative (Negative) 07/07/18 14:50 Urine Glucose Negative mg/dL (Negative) 07/07/18 14:50
[2018-07-09 15:52] VITALS: BP 146/93; PULSE 75; RESP 16; TEMP 36.7; O2SAT 96
[2018-07-09] MEDS: Enoxaparin 40 MG/0.4 ML SYR SC (18:50)
[2018-07-09] MEDS: Pantoprazole 40 MG VIAL IVP (18:50)
[2018-07-09] MEDS: Insulin Aspart 300 UNITS/3 ML PEN SC (18:51)
[2018-07-09 20:14] VITALS: BP 110/71; PULSE 71; RESP 18; TEMP 36.3; O2SAT 96
[2018-07-10 00:23] VITALS: BP 126/82; PULSE 74; RESP 16; TEMP 36; O2SAT 96
[2018-07-10] MEDS: Ketorolac 15 MG/ML VIAL IVP ×3 (00:31→12:52)
[2018-07-10] MEDS: ACETAMINOPHEN 1,000 MG/100 ML BTL 400 MG IVPB ×2 (01:43→09:38)
[2018-07-10] MEDS: CLINDAMYCIN 900 MG/50 ML BAG 50 MG IVPB ×2 (02:13→07:56)
[2018-07-10 03:55] VITALS: BP 130/82; PULSE 66; RESP 20; TEMP 36.7; O2SAT 95
[2018-07-10] MEDS: CIPROFLOXACIN 400 MG/200 ML BAG 200 MG IVPB (06:02)
[2018-07-10 07:12] LABS: Abs Immature Grans 0.04 k/cumm (0.0-0.09); Absolute Basophil Count 0.02 k/cumm (0.0-0.2); Absolute Eosinophil Count 0.14 k/cumm (0.0-0.7); Absolute Lymphocyte Count 1.48 k/cumm (1.2-3.4); Absolute Monocyte Count 0.24 k/cumm (0.11-0.7); Absolute Neutrophil Count 2.11 k/cumm (1.2-6.7); Basophils % 0.5; Eosinophils % 3.5; HCT 38.6 % (36.0-46.0); HGB 13.3 g/dL (12.0-15.5); Lymphocytes % 36.7; Mean Corp. HGB Concentration 34.5 g/dL (32.0-36.0); Mean Corpuscular Hemoglobin 29.4 pg (27.0-33.0); Mean Corpuscular Volume 85.2 fL (80-95); Mean Platelet Volume 9.9 fL (8.0-11.0); Neutrophils % 52.3; Platelet Count 252 x1000/uL (130-400); RBC 4.53 m/cumm (4.00-5.20); RBC Distribution Width 12.5 % (11.7-14.6); White Blood Cell Count 4.03 k/cumm (4.4-10.8)
[2018-07-10 07:26] LABS: Anion Gap 11.1 mmol/L (3-11); BUN 5 mg/dL (7-18); CO2 25.9 mmol/L (21.0-32.0); CREATININE 0.77 mg/dL (0.55-1.02); Calcium 8.7 mg/dL (8.5-10.1); Chloride 104 mmol/L (98-107); Glucose 127 mg/dL (70-100); Potassium 3.7 mmol/L (3.5-5.1); Sodium 141 mmol/L (136-145)
[2018-07-10 07:32] LABS: Magnesium 1.9 mg/dL (1.8-2.4)
[2018-07-10 07:39] VITALS: BP 143/89; PULSE 66; RESP 18; TEMP 36; O2SAT 99
--- NOTE | 2018-07-10 09:18 | W.PM.PROGNOT ---
Documented by User: KUSHAL Jones 07/10/18 09:28 Date of Service Date of service: 07/10/18 Time of Service: 09:18 Assessment and Plan (1) Perforation of sigmoid colon due to diverticulitis: Start date: 07/07/18 Start time: 17:43 Current visit: Yes Status: Acute Perforated diverticulitis: Will start PO Clindamycin and Cipro at next scheduled dose. IV Fluids: Will hold on IV fluids; PO fluid intake is adequate at this time. Pain management: Continue IV Toradol, acetaminophen scheduled, and Dilaudid as needed Diabetes mellitus type 2: Continue every 6 hours finger sticks, with sliding scale to cover Diet: Progress to regular soft diet: Low Fiber, Low fat. Hypertension we will hold lisinopril, blood pressure stable Disposition: Continue current care. Consider D/C home later this afternoon or tomorrow morning if tolerating regular soft diet and PO ATB. Subjective Interval history since last seen: Today she is feeling much better, she reports that she has been ambulating several times already this morning and that she was able to perform personal hygiene and make her bed as well without discomfort. Continues to have mild supra-pubic abdominal discomfort. Tolerating clear liquids without any discomfort. Denies nausea and vomiting. + BMs yesterday, loose stools. She reports urinary frequency secondary to her IV fluids. Denies dysuria or urinary urgency. Exam Const General: cooperative, healthy appearing and comfortable Orientation: alert and oriented x3 Resp Effort & Inspection: normal respiratory effort Auscultation: clear to auscultation bilaterally and no wheezes Cardio Jugular venous pressure: no JVD Rate: regular rate Rhythm: regular rhythm Heart Sounds: S1 normal, S2 normal and no murmurs GI Inspection: normal to inspection and non-distended Palpation: no guarding and tender suprapubicly; with no rebound tenderness Auscultation: normal bowel sounds Objective Objective Clinical Data: Abnormal lab results 07/10/18 07/10/18 Range/Units 06:15 06:15 WBC 4.03 L (4.4-10.8) k/cumm Anion Gap 11.1 H (3-11) mmol/L BUN 5 L (7-18) mg/dL Glucose 127 H (70-100) mg/dL Vital Signs Temperature 36.7 C 07/10/18 03:55 Temperature Source Tympanic 07/10/18 03:55 Pulse 66 07/10/18 03:55 Pulse Rhythm Regular 07/09/18 15:40 Respiratory Rate 20 07/10/18 03:55 Respiratory Effort 07/09/18 15:40 Respiratory Depth Normal 07/09/18 15:40 Respiratory Pattern Normal 07/09/18 15:40 Blood Pressure 130/82 07/10/18 03:55 Blood Pressure Position Sitting 07/07/18 12:36 Pulse Oximetry 95 07/10/18 03:55 Oxygen Delivery Method Room Air 07/10/18 03:55 Oxygen Flow Rate 0 07/10/18 03:55 Pain Level 1 07/10/18 06:01 Comment 07/09/18 15:52 Intake & Output 07/09/18 07/09/18 07/10/18 11:59 23:59 11:59 Intake Total 1355 / 1355 1800 / 1800 710 / 710 Output Total 1310 / 1310 1300 / 1300 1300 / 1300 Balance 45 / 45 500 / 500 -590 / -590 Intake: IV 985 / 985 1400 / 1400 350 / 350 Oral 370 / 370 400 / 400 360 / 360 Output: Urine 1310 / 1310 1300 / 1300 1300 / 1300 Other: Urine Color Yellow Yellow Urine Appearance Clear Clear Clear Urine Odor None Normal Voiding Methods Toilet Toilet Toilet Laboratory Results WBC 4.03 k/cumm (4.4-10.8) L 07/10/18 06:15 RBC 4.53 m/cumm (4.00-5.20) 07/10/18 06:15 Hgb 13.3 g/dL (12.0-15.5) 07/10/18 06:15 Hct 38.6 % (36.0-46.0) 07/10/18 06:15 MCV 85.2 fL (80-95) 07/10/18 06:15 MCH 29.4 pg (27.0-33.0) 07/10/18 06:15 MCHC 34.5 g/dL (32.0-36.0) 07/10/18 06:15 RDW 12.5 % (11.7-14.6) 07/10/18 06:15 Plt Count 252 x1000/uL (130-400) 07/10/18 06:15 MPV 9.9 fL (8.0-11.0) 07/10/18 06:15 Immature Gran % 1.0 07/10/18 06:15 Neutrophils % 52.3 07/10/18 06:15 Lymphocytes % 36.7 07/10/18 06:15 Monocytes % 6.0 07/10/18 06:15 Eosinophils % 3.5 07/10/18 06:15 Basophils % 0.5 07/10/18 06:15 Absolute Neutrophils 2.11 k/cumm (1.2-6.7) 07/10/18 06:15 Absolute Lymphocytes 1.48 k/cumm (1.2-3.4) 07/10/18 06:15 Absolute Monocytes 0.24 k/cumm (0.11-0.7) 07/10/18 06:15 Absolute Eosinophils 0.14 k/cumm (0.0-0.7) 07/10/18 06:15 Absolute Basophils 0.02 k/cumm (0.0-0.2) 07/10/18 06:15 ESR 65 MM/HR (0-20) H 07/08/18 06:45 Sodium 141 mmol/L (136-145) 07/10/18 06:15 Potassium 3.7 mmol/L (3.5-5.1) 07/10/18 06:15 Chloride 104 mmol/L (98-107) 07/10/18 06:15 Carbon Dioxide 25.9 mmol/L (21.0-32.0) 07/10/18 06:15 Anion Gap 11.1 mmol/L (3-11) H 07/10/18 06:15 BUN 5 mg/dL (7-18) L 07/10/18 06:15 Creatinine 0.77 mg/dL (0.55-1.02) 07/10/18 06:15 Estimated GFR/1.73 m2 >= 60.00 (mL/min/1.73m2) 07/10/18 06:15 Glucose 127 mg/dL (70-100) H 07/10/18 06:15 Calcium 8.7 mg/dL (8.5-10.1) 07/10/18 06:15 Magnesium 1.9 mg/dL (1.8-2.4) 07/10/18 06:15 Total Bilirubin 0.4 mg/dL (0.2-1.0) 07/07/18 13:47 AST 26 U/L (15-37) 07/07/18 13:47 ALT 36 U/L (12-78) 07/07/18 13:47 Alkaline Phosphatase 85 U/L (46-116) 07/07/18 13:47 C-Reactive Protein 6.35 mg/dL (0.0-0.3) H 07/08/18 06:45 Total Protein 8.3 g/dL (6.4-8.2) H 07/07/18 13:47 Albumin 3.2 g/dL (3.4-5.0) L 07/07/18 13:47 Lipase 146 U/L (73-393) 07/07/18 13:47 Urine Color Yellow (Yellow) 07/07/18 14:50 Urine Clarity Clear 07/07/18 14:50 Urine pH 6.0 (5-8) 07/07/18 14:50 Ur Specific [place] 1.010 (1.005-1.025) 07/07/18 14:50 Urine Protein Negative mg/dL (Negative) 07/07/18 14:50 Urine Ketones Negative mg/dL (Negative) 07/07/18 14:50 Urine Blood Negative (Negative) 07/07/18 14:50 Urine Nitrite Negative (Negative) 07/07/18 14:50 Urine Bilirubin Negative (Negative) 07/07/18 14:50 Urine Urobilinogen 0.2 EU/dL (Up TO 0.2) 07/07/18 14:50 Ur Leukocyte Esterase Negative (Negative) 07/07/18 14:50 Urine Glucose Negative mg/dL (Negative) 07/07/18 14:50
[2018-07-10 11:15] VITALS: BP 153/100; PULSE 71; RESP 18; TEMP 36.2; O2SAT 99
[2018-07-10] MEDS: Normal Saline Flush 10 ML SYR IVP (12:53)
--- NOTE | 2018-07-10 13:23 | PDOC.CMPRO ---
- If Service Date Differs Date of service: 07/10/18 Time of Service: 13:23 Care Management Progress Note S/O:Radha diet was advanced to full, her antibiotics have been transition to oral. Anticipate she will be discharged this afternoon or in the morning. Her spouse will transport her home at that time. Short term disability paperwork to be completed by . Anticipate no additional needs at time of discharge. A: Radha is a 47 year old female admitted with ruptured diverticulitis P:Anticipate no change is status today. She will discharge home when medically ready anticipate no additional services at time of discharge. CM will continue to provide support to patient discharge planning.
[2018-07-10] MEDS: Clindamycin 300 MG CAP PO (13:58)
[2018-07-10 15:52] VITALS: BP 145/100; PULSE 81; RESP 20; TEMP 37.3; O2SAT 100
--- NOTE | 2018-07-10 16:19 | W.PM.DS.N ---
Documented by User: KUSHAL Jones 07/10/18 16:47 Date of service: 07/10/18 Time of Service: 16:19 DS: Diagnosis Discharge Diagnosis (1) Perforation of sigmoid colon due to diverticulitis: Status: Acute Discharge Plan Disposition Patient Disposition: HOME Condition: Improving Discharge Details Chief Complaint: Abd Prob Reason For Visit: PERFORATED DIVERTICULITIS Admit Date/Time: 07/07/18 16:46 Admit Provider: Renaldo Evangelista Attending Provider: Renaldo Evangelista Primary Care Provider: Danna Gonzalez ED Provider: Sb Elkins [facility] Hospital Course: Ms. Parada presented to the ER on 07/07 with complaints of progressively worsening abdominal pain associated with nausea, vomiting and diarrhea. She had urinary symptoms and was started on Bactrim for UTI that grew E. Coli. with no improvement in her symptoms. CT scan demonstrated Perforated diverticulitis with free air. She was admitted for non-surgical treatment with IV antibiotics. On PAD #2 she was started on clear liquids and advanced to a soft surgical diet on POD #3. Her abdominal pain improved over the 3 days. On discharge she had mild suprapubic pain without guarding or rebound. Labs had normalized. She had been afebrile for 48 hours. Home Meds and New Rx's Prescriptions: New ciprofloxacin HCl 500 mg Tablet 500 mg PO BID@0600,1800 11 Days Qty: 22 RF: 0 clindamycin HCl 300 mg Capsule 300 mg PO Q6H 11 Days Qty: 44 RF: 0 promethazine 12.5 mg tablet 12.5 mg PO Q6H PRN (Reason: nausea and vomiting) Qty: 20 RF: 0 acetaminophen [Tylenol Extra Strength] 500 mg tablet 500 mg PO QID PRN (Reason: fever or pain) Qty: 10 RF: 0 ibuprofen 600 mg tablet 600 mg PO QID PRN (Reason: fever or pain) Qty: 10 RF: 0 Continue metformin 1,000 mg Tablet 1,000 mg PO BID RF: 0 lisinopril 5 mg Tablet 5 mg PO DAILY RF: 0 Discharge Instructions Instructions: Diverticulitis (DC), Diverticulitis Diet (DC) Additional Instructions: General Surgery Discharge Information Discharge Activities: 1. Continue incentive spirometry 10-15 times~every hour while awake and as tolerated 2. Ambulate at least 3 times a day for 15 minutes and as tolerated 3. Out of bed at least 3 times a day for 2 hours at a time, and as tolerated 4. You can shower Restrictions: None Therapies: None Follow-up appointments: Dr. Evangelista or KUSHAL Melgar in on 07/21/18. Please call for a time. His office is located in the upper level of the [employer] Building across the street from the hospital. The office number is [phone]. For any questions or to make, confirm appointments. If you are having fever, chills, nausea, vomiting, pain not controlled with pain medications, bleeding or drainage from your wounds. Call [phone] or [phone] (after hours). I understand the above instructions and have no questions. Signature of Patient or Responsible Adult Escort Date/Time Name of Responsible Adult Escort Signature of Nurse Date/Time Referrals: Renaldo Evangelista DO [ [facility] STAFF PHYSICIAN] - 07/21/18 12:00 am (Please call for appointment time.) Activity:: Activity as Tolerated Equipment/Supplies:: No Equipment Needed Diet:: Soft, Low fiber, Low fat diet Discharge Orders Discharge Orders: Discharge Order (Routine); Ordered 07/10/18 Ordered By: Elma Resendiz DS: Data Vitals/I&O Vitals and I&O: Vital Signs Temperature 37.3 C 07/10/18 15:52 Temperature Source Tympanic 07/10/18 15:52 Pulse 81 07/10/18 15:52 Pulse Rhythm Regular 07/10/18 08:16 Respiratory Rate 20 07/10/18 15:52 Respiratory Effort 07/10/18 08:16 Respiratory Depth Normal 07/10/18 08:16 Respiratory Pattern Normal 07/10/18 08:16 Blood Pressure 145/100 H 07/10/18 15:52 Blood Pressure Position Sitting 07/07/18 12:36 Pulse Oximetry 100 07/10/18 15:52 Oxygen Delivery Method Room Air 07/10/18 15:52 Oxygen Flow Rate 0 07/10/18 15:52 Pain Level 3 07/10/18 12:52 Comment 07/10/18 11:15 Intake & Output 07/09/18 07/10/18 07/10/18 23:59 11:59 23:59 Intake Total 1800 / 1800 1520 / 1520 Output Total 1300 / 1300 1300 / 1300 Balance 500 / 500 220 / 220 Intake: IV 1400 / 1400 450 / 450 Oral 400 / 400 1070 / 1070 Output: Urine 1300 / 1300 1300 / 1300 Other: Urine Color Yellow Yellow Urine Appearance Clear Clear Urine Odor None Normal Comment pt voiding ad claudia in toilet; pt reports no issues with voidng at this time. Voiding Methods Toilet Toilet Toilet Labs on day of discharge: Labs from last 24 hours 07/10/18 07/10/18 07/10/18 06:15 06:15 06:15 WBC 4.03 L RBC 4.53 Hgb 13.3 Hct 38.6 MCV 85.2 MCH 29.4 MCHC 34.5 RDW 12.5 Plt Count 252 MPV 9.9 Immature Gran % 1.0 Neutrophils % 52.3 Lymphocytes % 36.7 Monocytes % 6.0 Eosinophils % 3.5 Basophils % 0.5 Absolute Neutrophils 2.11 Absolute Lymphocytes 1.48 Absolute Monocytes 0.24 Absolute Eosinophils 0.14 Absolute Basophils 0.02 Sodium 141 Potassium 3.7 Chloride 104 Carbon Dioxide 25.9 Anion Gap 11.1 H BUN 5 L Creatinine 0.77 Estimated GFR/1.73 m2 >= 60.00 Glucose 127 H Calcium 8.7 Magnesium 1.9
--- NOTE | 2018-07-10 16:26 | W.PM.DSUDISC ---
Discharge Plan Disposition Patient Disposition: HOME Condition: Improving Discharge Details Chief Complaint: Abd Prob Reason For Visit: PERFORATED DIVERTICULITIS Admit Date/Time: 07/07/18 16:46 Admit Provider: Renaldo Evangelista Attending Provider: Renaldo Evangelista Primary Care Provider: Danna Gonzalez [facility]: Ms. Parada presented to the ER on 07/07 with complaints of progressively worsening abdominal pain associated with nausea, vomiting and diarrhea. She had urinary symptoms and was started on Bactrim for UTI that grew E. Coli. with no improvement in her symptoms. CT scan demonstrated Perforated diverticulitis with free air. She was admitted for non-surgical treatment with IV antibiotics. On PAD #2 she was started on clear liquids and advanced to a soft surgical diet on POD #3. Her abdominal pain improved over the 3 days. On discharge she had mild suprapubic pain without guarding or rebound. Labs had normalized. She had been afebrile for 48 hours. Home Meds and New Rx's Prescriptions: No Action metformin 1,000 mg Tablet 1,000 mg PO BID RF: 0 lisinopril 5 mg Tablet 5 mg PO DAILY RF: 0 Discharge Instructions Instructions: Diverticulitis (DC), Diverticulitis Diet (DC) Additional Instructions: General Surgery Discharge Information Discharge Activities: 1. Continue incentive spirometry 10-15 times~every hour while awake and as tolerated 2. Ambulate at least 3 times a day for 15 minutes and as tolerated 3. Out of bed at least 3 times a day for 2 hours at a time, and as tolerated 4. You can shower Restrictions: None Therapies: None Follow-up appointments: Dr. Evangelista or KUSHAL Melgar in on 07/21/18. Please call for a time. His office is located in the upper level of the [employer] Building across the street from the hospital. The office number is [phone]. For any questions or to make, confirm appointments. If you are having fever, chills, nausea, vomiting, pain not controlled with pain medications, bleeding or drainage from your wounds. Call [phone] or [phone] (after hours). I understand the above instructions and have no questions. Signature of Patient or Responsible Adult Escort Date/Time Name of Responsible Adult Escort Sugnature of Nurse Date/Time DS: Diagnosis Discharge Diagnosis (1) Perforation of sigmoid colon due to diverticulitis: Status: Acute
--- NOTE | 2018-07-10 16:32 | PDOC.DSDIS_ITS ---
Discharge Plan Disposition Patient Disposition: HOME Condition: Improving Discharge Details Chief Complaint: Abd Prob Reason For Visit: PERFORATED DIVERTICULITIS Admit Date/Time: 07/07/18 16:46 Admit Provider: Renaldo Evangelista Attending Provider: Renaldo Evangelista Primary Care Provider: Danna Gonzalez [facility]: Ms. Parada presented to the ER on 07/07 with complaints of progressively worsening abdominal pain associated with nausea, vomiting and diarrhea. She had urinary symptoms and was started on Bactrim for UTI that grew E. Coli. with no improvement in her symptoms. CT scan demonstrated Perforated diverticulitis with free air. She was admitted for non-surgical treatment with IV antibiotics. On PAD #2 she was started on clear liquids and advanced to a soft surgical diet on POD #3. Her abdominal pain improved over the 3 days. On discharge she had mild suprapubic pain without guarding or rebound. Labs had normalized. She had been afebrile for 48 hours. Home Meds and New Rx's Prescriptions: No Action metformin 1,000 mg Tablet 1,000 mg PO BID RF: 0 lisinopril 5 mg Tablet 5 mg PO DAILY RF: 0 Discharge Instructions Instructions: Diverticulitis (DC), Diverticulitis Diet (DC) Additional Instructions: General Surgery Discharge Information Discharge Activities: 1. Continue incentive spirometry 10-15 times~every hour while awake and as tolerated 2. Ambulate at least 3 times a day for 15 minutes and as tolerated 3. Out of bed at least 3 times a day for 2 hours at a time, and as tolerated 4. You can shower Restrictions: None Therapies: None Follow-up appointments: Dr. Evangelista or KUSHAL Melgar in on 07/21/18. Please call for a time. His office is located in the upper level of the [employer] Building across the street from the hospital. The office number is [phone]. For any questions or to make, confirm appointments. If you are having fever, chills, nausea, vomiting, pain not controlled with pain medications, bleeding or drainage from your wounds. Call [phone] or [phone] (after hours). I understand the above instructions and have no questions. _ Signature of Patient or Responsible Adult Escort Date/Time _ Name of Responsible Adult Escort _ Sugnature of Nurse Date/Time DS: Diagnosis Discharge Diagnosis (1) Perforation of sigmoid colon due to diverticulitis: Status: Acute
[2018-07-10] MEDS: HYDROmorphone 2 MG/ML VIAL 0.5 MG IVP (16:50)
== END 2018-07-10 17:24 | disposition home or self-care (01) | DRG 392 ==
LOC: ER 13:02 → MS 07-08 11:10
PROVIDERS: Physical Therapy Assistant; Admitting Provider Surgery; Emergency Provider Nurse Practitioner Family; PCP Nurse Practitioner Family; Visit Provider Surgery
DX: K57.20 Diverticulitis of large intestine with perforation and abscess without bleeding (principal); E11.9 Type 2 diabetes mellitus without complications
CPT/HCPCS: 36415; 80048; 80053; 83690; 85652; 96361; 96374; 96375; 99223; 99232; 99239; 99285; J1650; 74177; 81003; 83735; 85025; 86140; 99284; J0131; J0744; J1200; J1885; J2270; J2405; J3490

== ENCOUNTER 2018-09-10 10:27 | Outpatient (CLI) | payer BC, SELFPAY ==
--- NOTE | 2018-09-10 12:08 | DI.CT_ITS ---
SYMPTOM/DIAGNOSIS: ABD PAIN, R10.9, DIVERTICULITIS, COLON WITH PERFORATION, K57.20, NAUSEA ABDOMEN AND PELVIC CT: No acute findings are seen in the lung bases. There is diffuse decreased attenuation of the liver. No suspicious hepatic masses are seen. The portal and superior mesenteric veins are patent. The gallbladder appears absent. No biliary ductal dilatation is seen. The portal and superior mesenteric veins are patent. The spleen, pancreas and adrenal glands show no acute abnormalities. There is a left renal cyst. There is a non obstructing stone in the mid pole of the left kidney. The kidneys otherwise show normal and symmetric enhancement. The urinary bladder is intact. The reproductive organs are unremarkable as visualized. There is diverticulosis of the colon. In the mid sigmoid colon, there does appear to be bowel wall thickening and pericolonic inflammatory changes. There is an adjacent loop of small bowel with mild thickening of the wall and inflammatory changes noted. There is also a line of soft tissue connecting the inflamed small bowel and colon with a few pockets of air and an enterocolic fistula cannot be excluded (series 5, images [phone]). There was an appearance of a possible abscess in this region on the prior examination. There is again seen a hernia in the anterior abdominal wall containing a loop of small bowel. The small bowel proximal to this does appear to be mildly dilated. Am obstruction cannot be excluded. The remainder of the bowel is unremarkable. A normal appendix is visualized. No evidence of abdominal or pelvic ascites, adenopathy or pneumoperitoneum is present. Degenerative changes are seen in the spine. IMPRESSION: 1. Inflammatory changes seen in adjacent loops of small bowel and sigmoid colon with diverticula seen in the sigmoid colon. The findings raise the question of acute diverticulitis with an adjacent enteritis. 2. Soft tissue collection connecting these two inflamed loops of bowel. A fistula cannot be excluded. 3. Dilated loops of small bowel proximal to an anterior abdominal wall hernia. Obstruction should be considered.
[2018-09-10] MEDS: Omnipaque 350 MG/ML 100 ML BTL IJ (12:10)
[2018-09-10] MEDS: Breeza Beverage 473 ML BTL PO (12:11)
[2018-09-10] MEDS: Omnipaque 350 MG/ML 50 ML BTL PO (12:11)
--- NOTE | 2018-09-10 19:42 | W.PM.HP.N ---
Date of service: 09/10/18 Time of Service: 19:42 History of Present Illness Chief Complaint: Nausea and Abdominal Pain Narrative: 47 y/o female with history of type 2 DM, HTN and perforation of sigmoid colon due to diverticulitis (07/2018) presents with complaints of nausea and abdominal pain and cramping x 3 days. On 09/09/18 she was seen by her PCP and had a CT scan on 09/10/18. Results of the CT scan showed inflammed loops of bowel with question PFSH Medical History DM2 (diabetes mellitus, type 2) (Chronic) Essential hypertension (Chronic) Morbid obesity (Chronic) Surgical History History of bilateral oophorectomies (Resolved) History of cholecystectomy (Resolved) History of ureter repair (Resolved) Status post complete hysterectomy (Resolved) Family History Father CAD (coronary artery disease) AMI (acute myocardial infarction) Maternal Aunt Breast cancer Social History Smoking/Tobacco Use Status: Current every day Meds Home Medications Medication Instructions Recorded Confirmed Type lisinopril 5 mg PO DAILY 07/07/18 09/10/18 History metformin 1,000 mg PO BID 07/07/18 09/10/18 History acetaminophen [Tylenol Extra 500 mg PO QID PRN #10 tab 07/10/18 09/10/18 Rx Strength] ibuprofen 600 mg PO QID PRN #10 tab 07/10/18 09/10/18 Rx promethazine 12.5 mg PO Q6H PRN #20 tab 07/10/18 09/10/18 Rx bisacodyl 5 mg tablet,delayed 5 mg PO ONCE #4 tab 09/05/18 09/10/18 Rx release hydrochlorothiazide 25 mg tablet 25 mg PO DAILY 09/05/18 09/10/18 History polyethylene glycol 3350 17 255 g PO ONCE #255 gm 09/05/18 09/10/18 Rx gram/dose oral powder Allergies Allergy/AdvReac Type Severity Reaction Status Date / Time Penicillins Allergy Mild Hives Verified 09/05/18 10:50 metronidazole [From Flagyl] AdvReac Severe [place]/Vomi Verified 09/05/18 10:50 ting
== END 2018-09-10 10:47 ==
PROVIDERS: PCP Nurse Practitioner Family; Visit Provider Nurse Practitioner Family
DX: R10.9 Unspecified abdominal pain (principal); K57.30 Diverticulosis of large intestine without perforation or abscess without bleeding; K59.39 Other megacolon; K43.9 Ventral hernia without obstruction or gangrene; R11.0 Nausea
CPT/HCPCS: 74177; J3490; Q9967

== ENCOUNTER 2018-09-10 15:32 | Inpatient (IN) | payer BC, SELFPAY ==
[2018-09-10 17:07] VITALS: BP 118/81; PULSE 100; RESP 16; TEMP 36.2; O2SAT 98
[2018-09-10 17:15] VITALS: BP 118/71; PULSE 100; RESP 20; TEMP 36.2; O2SAT 98
[2018-09-10] MEDS: Ketorolac 30 MG/ML VIAL IV ×2 (18:29→23:46)
[2018-09-10] MEDS: Pantoprazole 40 MG VIAL IVP (18:30)
[2018-09-10] MEDS: Normal Saline Flush 10 ML SYR IVP ×2 (18:30→20:13)
[2018-09-10 18:34] VITALS: PULSE 89
[2018-09-10 18:37] VITALS: BP 111/75; PULSE 89
[2018-09-10] MEDS: Metoprolol 5 MG/5 ML VIAL IVP (18:37)
[2018-09-10 18:42] LABS: Anion Gap 13.1 mmol/L (3-11); BUN 18 mg/dL (7-18); CO2 22.9 mmol/L (21.0-32.0); CREATININE 1.01 mg/dL (0.55-1.02); Calcium 8.7 mg/dL (8.5-10.1); Chloride 99 mmol/L (98-107); Estimated GFR 59.01 (mL/min/1.73m2); Glucose 133 mg/dL (70-100); Sodium 135 mmol/L (136-145)
[2018-09-10] MEDS: CLINDAMYCIN 900 MG/50 ML BAG 50 MG IVPB ×2 (18:45→23:47)
[2018-09-10 18:51] LABS: Abs Immature Grans 0.01 k/cumm (0.0-0.09); Absolute Basophil Count 0.01 k/cumm (0.0-0.2); Absolute Eosinophil Count 0.14 k/cumm (0.0-0.7); Absolute Lymphocyte Count 2.98 k/cumm (1.2-3.4); Absolute Monocyte Count 0.65 k/cumm (0.11-0.7); Absolute Neutrophil Count 4.69 k/cumm (1.2-6.7); Basophils % 0.1; Eosinophils % 1.7; HGB 14.8 g/dL (12.0-15.5); Immature Grans % 0.1; Lymphocytes % 35.1; Mean Corp. HGB Concentration 35.2 g/dL (32.0-36.0); Mean Corpuscular Hemoglobin 29.8 pg (27.0-33.0); Mean Corpuscular Volume 84.5 fL (80-95); Mean Platelet Volume 11.2 fL (8.0-11.0); Monocytes % 7.7; Neutrophils % 55.3; Platelet Count 174 x1000/uL (130-400); RBC 4.97 m/cumm (4.00-5.20); RBC Distribution Width 13.3 % (11.7-14.6); White Blood Cell Count 8.48 k/cumm (4.4-10.8)
[2018-09-10 20:00] VITALS: PULSE 83
[2018-09-10] MEDS: HYDROmorphone 2 MG/ML VIAL IVP (20:12)
[2018-09-10] MEDS: Lactated Ringers 1,000 ML 125 ML IV (20:16)
--- NOTE | 2018-09-10 20:20 | W.PM.HP.N ---
Date of service: 09/10/18 Time of Service: 20:20 Assessment and Plan (1) Diverticulitis: Current visit: Yes Status: Chronic (2) Abdominal pain: Current visit: Yes Status: Acute A// Patient is currently stable however she appears ill. She is afebrile at this time. Will start ATB for diverticulitis. Metabolic acidosis (Anion Gap 13.1) noted on BMP with hyponatremia and hypokalemia. 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 Will check a Lactate (pending.) DIET: NPO. PAIN: Tylenol, Toradol and Dilaudid as needed. NAUSEA: Phenergan PRN ATB: Question of diverticulitis and small bowel fistula. Started Clindamycin and Ciprofloxacin. Will Recheck CBCD in the AM. METABOLIC ACIDOSIS: Will check Lactate (pending). Will Recheck BMP in AM. FLUIDS: LR at 125 ml/s. Recheck BMP in the AM. DM TYPE 2: Finger sticks Q6H with sliding scale insulin. HTN: Started home meds (Hydrochlorothiazide and Lisinopril) NICOTINE use- Patient declined nicotine replacement. ACTIVITY- Independent. Encouraged ambulation and sitting up out of bed as tolerated. Discussed the above with Dr Curtis. Qualifiers: Abdominal location: generalized Qualified Code(s): R10.84 - Generalized abdominal pain (3) Fistula of small intestine: Current visit: Yes Status: Acute History of Present Illness Chief Complaint: Nausea and Abdominal Pain Narrative: 47 y/o female with history of type 2 DM, HTN, and perforation of sigmoid colon due to diverticulitis (07/2018) presents with a 3 day history of progressively worsening nausea, crampy abdominal pain and diarrhea. She was seen by her PCP on 09/09/18 for these symptoms. She then had a CT scan this morning (09/10/18). CT can showed diverticulitis with an area of inflammed loops of bowel with question of a fistula. Also noted was a incisional hernia. Patient reports anorexia, diarrhea and chills. Denies fevers or night sweats. Review of Systems Constitutional Reports chills, Denies fever(s) and Denies night sweats Cardiovascular Denies chest pain, Denies chest pain at rest, Denies diaphoresis and Denies syncope Gastrointestinal Reports abdominal pain (crampy generalized throughout abdomen), Reports bloating, Denies hematochezia, Reports diarrhea, Reports nausea and Denies vomiting Genitourinary Denies difficulty voiding, Denies dysuria, Denies urinary hesitancy and Denies urinary urgency Neurologic Denies syncope PFSH Medical History DM2 (diabetes mellitus, type 2) (Chronic) Essential hypertension (Chronic) Morbid obesity (Chronic) Surgical History History of bilateral oophorectomies (Resolved) History of cholecystectomy (Resolved) History of ureter repair (Resolved) Status post complete hysterectomy (Resolved) Family History Father CAD (coronary artery disease) AMI (acute myocardial infarction) Maternal Aunt Breast cancer Social History Smoking/Tobacco Use Status: Current every day Meds Home Medications Medication Instructions Recorded Confirmed Type lisinopril 5 mg PO DAILY 07/07/18 09/10/18 History metformin 1,000 mg PO BID 07/07/18 09/10/18 History acetaminophen [Tylenol Extra 500 mg PO QID PRN #10 tab 07/10/18 09/10/18 Rx Strength] ibuprofen 600 mg PO QID PRN #10 tab 07/10/18 09/10/18 Rx promethazine 12.5 mg PO Q6H PRN #20 tab 07/10/18 09/10/18 Rx bisacodyl 5 mg tablet,delayed 5 mg PO ONCE #4 tab 09/05/18 09/10/18 Rx release hydrochlorothiazide 25 mg tablet 25 mg PO DAILY 09/05/18 09/10/18 History polyethylene glycol 3350 17 255 g PO ONCE #255 gm 09/05/18 09/10/18 Rx gram/dose oral powder Allergies Allergy/AdvReac Type Severity Reaction Status Date / Time Penicillins Allergy Mild Hives Verified 09/05/18 10:50 metronidazole [From Flagyl] AdvReac Severe [place]/Vomi Verified 09/05/18 10:50 ting Exam Const General: cooperative, comfortable and ill appearing acutely Orientation: alert and oriented x3 Resp Effort & Inspection: normal respiratory effort Auscultation: clear to auscultation bilaterally and no wheezes Cardio Jugular venous pressure: no JVD Rate: regular rate Rhythm: regular rhythm Heart Sounds: S1 normal, S2 normal and no murmurs GI Inspection: normal to inspection and non-distended Palpation: soft, no guarding and tender in the epigastrum and suprapubicly; with no rebound tenderness Auscultation: normal bowel sounds Results Labs : 09/10/18 18:05 09/10/18 18:05 Laboratory Results - last 24 hr 09/10/18 09/10/18 18:05 18:05 WBC 8.48 RBC 4.97 Hgb 14.8 Hct 42.0 MCV 84.5 MCH 29.8 MCHC 35.2 RDW 13.3 Plt Count 174 MPV 11.2 H Immature Gran % 0.1 Neutrophils % 55.3 Lymphocytes % 35.1 Monocytes % 7.7 Eosinophils % 1.7 Basophils % 0.1 Absolute Neutrophils 4.69 Absolute Lymphocytes 2.98 Absolute Monocytes 0.65 Absolute Eosinophils 0.14 Absolute Basophils 0.01 Sodium 135 L Potassium 3.0 L Chloride 99 Carbon Dioxide 22.9 Anion Gap 13.1 H BUN 18 Creatinine 1.01 Estimated GFR/1.73 m2 59.01 Glucose 133 H Calcium 8.7 Last Vital Signs Temp 36.2 C L 09/10/18 17:15 Pulse 83 09/10/18 20:00 Resp 20 09/10/18 17:15 BP 111/75 09/10/18 18:37 Pulse Ox 98 09/10/18 17:15
[2018-09-10] MEDS: CIPROFLOXACIN 400 MG/200 ML BAG 200 MG IVPB (20:57)
[2018-09-10 20:59] LABS: Lactate-non-spesis 1.3 mmol/L (0.6-1.4)
[2018-09-10 21:04] VITALS: PULSE 81; RESP 20; TEMP 36.2; O2SAT 94
[2018-09-11 00:20] VITALS: BP 100/67; PULSE 69; RESP 18; TEMP 35.9; O2SAT 97
[2018-09-11 03:25] VITALS: BP 86/52; PULSE 65; RESP 16; TEMP 35.8; O2SAT 95
[2018-09-11] MEDS: Ketorolac 30 MG/ML VIAL IV ×3 (05:29→17:20)
[2018-09-11] MEDS: Normal Saline Flush 10 ML SYR IVP ×3 (05:30→12:00)
[2018-09-11] MEDS: CLINDAMYCIN 900 MG/50 ML BAG 50 MG IVPB ×3 (05:30→18:00)
[2018-09-11] MEDS: Lactated Ringers 1,000 ML 125 ML IV (07:32)
[2018-09-11 07:56] LABS: Absolute Basophil Count 0.02 k/cumm (0.0-0.2); Absolute Eosinophil Count 0.15 k/cumm (0.0-0.7); Absolute Lymphocyte Count 1.53 k/cumm (1.2-3.4); Absolute Monocyte Count 0.53 k/cumm (0.11-0.7); Absolute Neutrophil Count 4.66 k/cumm (1.2-6.7); Basophils % 0.3; Eosinophils % 2.2; HCT 42.7 % (36.0-46.0); HGB 14.8 g/dL (12.0-15.5); Lymphocytes % 22.2; Mean Corp. HGB Concentration 34.7 g/dL (32.0-36.0); Mean Corpuscular Hemoglobin 29.7 pg (27.0-33.0); Mean Corpuscular Volume 85.6 fL (80-95); Mean Platelet Volume 10.8 fL (8.0-11.0); Monocytes % 7.7; Neutrophils % 67.6; Platelet Count 179 x1000/uL (130-400); RBC 4.99 m/cumm (4.00-5.20); RBC Distribution Width 13.2 % (11.7-14.6); White Blood Cell Count 6.89 k/cumm (4.4-10.8)
[2018-09-11 07:57] LABS: BUN 19 mg/dL (7-18); CREATININE 1.17 mg/dL (0.55-1.02); Calcium 8.6 mg/dL (8.5-10.1); Chloride 99 mmol/L (98-107); Glucose 133 mg/dL (70-100); Sodium 137 mmol/L (136-145)
[2018-09-11 08:03] LABS: Potassium 2.9 mmol/L (3.5-5.1)
[2018-09-11 08:05] VITALS: BP 100/68; PULSE 67; RESP 18; TEMP 36.8; O2SAT 98
[2018-09-11] MEDS: HYDROmorphone 2 MG/ML VIAL IVP ×2 (09:32→14:51)
[2018-09-11] MEDS: CIPROFLOXACIN 400 MG/200 ML BAG 200 MG IVPB ×2 (09:32→20:40)
--- NOTE | 2018-09-11 09:44 | PHARADMIT ---
Addendum entered by Coby Carreno 09/24/18 11:27: Pharmacy Note Subjective erythema receding, tolerating soft diet Objective pain /10, vs ok, Uc gram - eliazar greater than 100,000col/mL, no labs today Assessment smz/tmp PO started Plan watch K levels due to pt on lisinopril and smz/tmp which may cause hyperkalemia Original Note: Addendum entered by Halie De Souza 09/23/18 11:34: Pharmacy Note Subjective Objective Tmax-38.6 yesterday afternoon, other VS okay WBC-7.95 Na-133 Cl-97 h/h-10.1/29.9(down slightly) FSBG-148 Assessment TPN rate slowed down, due to stop TPN today per progress note as pt is tolerating a soft diet urine culture from yesterday is growing gram negative rods sliding scale aspart changed from Q6H to AC&HS in due to change from TPN to PO food Plan watch for discontinuation of TPN and possible addition of an antibiotic? Original Note: Addendum entered by Halie De Souza 09/16/18 17:38: Pharmacy Note Subjective pt had surgery today Objective VS-okay labs okay SCr-1.05(up) BG-156 Assessment TPN continues, but clinimix changed from 5/15 to 4.25/10 today cipro and clindamycin continue (day7 starts this evening) Plan continue to watch VS, labs (due to TPN), and for med changes(abx/TPN) Original Note: Admission Pharmacy Clinical Review DIVERTICULITIS, FISTUAL Code Status Full Code Current Weight Wgt-125 kg Renally Cleared and Narrow Therapeutic Index Meds CrCl~ 60.6 mL/min Meds-OK QTc Value / Action Taken none BP Control, Fever BP- 86/52 Tmax- 36.2C Electrolytes reviewed Na- 137 K+2.9 DVT Prophylaxis Going to surgery ? Opiate Usage / Scheduled Bowel Regimen Ordered Yes No Plt/SCr for Heparin / Enoxaparin Plts- 179 SCr-1.17 INR for Warfarin NA H/H stable, WBC/Bands H&H- 14.8/42.7 WBC-6.89 Antibiotic appropriateness Cipro IV Clindamycin Cultures and Sensitivities none Surgical ABX d/c within 24 hr NA DM control / Insulin DosingBG- 133 BG-133 Aspart Heart Failure (Check EF%) (EDEN's, B-Block, Diuretics) HCTZ, Lisinopril IV to PO Switch No Home Meds Reviewed Yes Home Meds Not Ordered Metformin, Ibuprofen, Miralax, Dulcolax Comments
--- NOTE | 2018-09-11 10:37 | PDOC.CMIN ---
- If Service Date Differs Date of service: 09/11/18 Time of Service: 10:37 Care Management Initial Assess REASON FOR HOSPITALIZATION:: Diverticulitis, Abdominal pain PAST MEDICAL HISTORY/PAST SURGICAL HISTORY:: DM2 (diabetes mellitus, type 2) (Chronic). Essential hypertension (Chronic). Morbid obesity (Chronic). History of bilateral oophorectomies (Resolved). History of cholecystectomy (Resolved). History of ureter repair (Resolved). Status post complete hysterectomy (Resolved) PREVIOUS FUNCTIONAL STATUS/SOCIAL/FAMILY SUPPORTS:: Radha resides with her [facility] in [place], they have been for 5 years. She states that she has two sons whom both reside in [facility] [place] [facility]. 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 Radha is independent at baseline, she drives, and manages ADL's CURRENT FUNCTIONAL STATUS:: Currently Radha is sitting up on the edge of her bed this morning. ADVANCE DIRECTIVES:: None on file Has patient been provided with information about the portal?: Yes Did the patient sign up for the portal?: No (already signed up) CODE STATUS:: Full Code INSURANCE COVERAGE / FINANCIAL ISSUES:: BCBS CURRENT HOME/COMMUNITY SERVICES/EQUIPMENT:: Currently Radha receives no services or medical equipment in the community. PRIMARY CARE PHYSICIAN:: Danna Gonzalez POTENTIAL DISCHARGE NEEDS:: F/U appointment with [facility] PATIENT/FAMILY EDUCATION NEEDS:: Review DC instructions, any limitations, and ongoing DC planning discussion. Discuss 'Ask Me three' ANTICIPATED BARRIERS TO DISCHARGE:: None identified at this time. TRANSPORTATION:: via private vehicle with [facility] PLAN:: Radha reports that she met with Dr. Curtis this morning and that he stated that she would be at [facility] through the weekend, and potentially go to the OR on Saturday. Radha is worried about her hospital bill and would like to apply for financial assistance. CM to provide application to Radha. Radha will return home once medically cleared with no services. She will F/U with [facility] and plan of care as prescribed. Radha's [facility] to transport when ready.
--- NOTE | 2018-09-11 11:23 | CHAPLAIN ---
Radha was sitting on the edge of her bed when I visited. She said is worn out but okay. In introduced myself and offered support. She has a family member/friend with her. Radha was pleasant, and thanked me for stopping in, but she not interested in further conversation at this time.
[2018-09-11] MEDS: POTASSIUM CHLORIDE/0.9% NACL 1,000 ML 75 MEQ IV ×2 (11:55→20:41)
--- NOTE | 2018-09-11 12:13 | W.PM.PROGNOT ---
Date of Service Date of service: 09/11/18 Time of Service: 12:13 Assessment and Plan (1) Fistula of small intestine: Start date: 09/11/18 Start time: 12:14 Current visit: Yes Status: Acute Patient to have replacement of electrolyte deficiencies and manual bowel prep for possible surgery on Saturday if patient tolerates and condition does not worsen (2) Abdominal pain: Start date: 09/11/18 Start time: 12:15 Current visit: Yes Status: Acute Patient given pain meds and is responding appropriately. Patient to have semi-elective resection of colon and small bowel due to pathology patient aware of risks benefits and alternatives. Qualifiers: Abdominal location: generalized Qualified Code(s): R10.84 - Generalized abdominal pain (3) Diverticulitis: Start date: 09/11/18 Start time: 12:15 Current visit: Yes Status: Chronic Patient to have surgery on Saturday after manual prep as well as replacement of electrolytes Patient was explained the risks benefits and alternatives of surgery Patient also informed that if her condition worsen that this would be moved up secondary to the urgency of her condition. (4) Hypokalemia: Start date: 09/11/18 Start time: 12:16 Current visit: Yes Status: Acute Patient to have replacements patient had 40 mEq of potassium added to her IV bag and will run at a rate of 75 cc an hour Subjective Patient reports: still having pain Exam Const General: cooperative Nutritional Appearance: obese Orientation: alert, awake and oriented x3 GI Inspection: normal to inspection Palpation: tender Percussion: normal to percussion Auscultation: abnormal bowel sounds Objective Objective Clinical Data: Abnormal lab results 09/10/18 09/10/18 09/11/18 Range/Units 18:05 18:05 07:10 MPV 11.2 H (8.0-11.0) fL Sodium 135 L (136-145) mmol/L Potassium 3.0 L 2.9 L* (3.5-5.1) mmol/L Anion Gap 13.1 H 12.0 H (3-11) mmol/L BUN 19 H (7-18) mg/dL Creatinine 1.17 H (0.55-1.02) mg/dL Glucose 133 H 133 H (70-100) mg/dL Vital Signs Temperature 35.8 C L 09/11/18 03:25 Temperature Source Tympanic 09/11/18 03:25 Pulse 65 09/11/18 03:25 Pulse Rhythm Regular 09/11/18 09:20 Respiratory Rate 16 09/11/18 03:25 Respiratory Effort Non-Labored 09/11/18 09:20 Respiratory Depth Normal 09/11/18 09:20 Respiratory Pattern Normal 09/11/18 09:20 Blood Pressure 86/52 L 09/11/18 03:25 Pulse Oximetry 95 09/11/18 03:25 Oxygen Delivery Method Room Air 09/11/18 03:25 Oxygen Flow Rate 0 09/11/18 03:25 Pain Level 9 09/11/18 09:32 Comment 09/11/18 03:25 Intake & Output 09/10/18 09/11/18 09/11/18 23:59 11:59 23:59 Intake Total 250 / 250 1647.917 / 1647.917 Balance 250 / 250 1647.917 / 1647.917 Weight 125 kg Intake: IV 250 / 250 1647.917 / 1647.917 Other: Urine Appearance Clear Clear Laboratory Results WBC 6.89 k/cumm (4.4-10.8) 09/11/18 07:10 RBC 4.99 m/cumm (4.00-5.20) 09/11/18 07:10 Hgb 14.8 g/dL (12.0-15.5) 09/11/18 07:10 Hct 42.7 % (36.0-46.0) 09/11/18 07:10 MCV 85.6 fL (80-95) 09/11/18 07:10 MCH 29.7 pg (27.0-33.0) 09/11/18 07:10 MCHC 34.7 g/dL (32.0-36.0) 09/11/18 07:10 RDW 13.2 % (11.7-14.6) 09/11/18 07:10 Plt Count 179 x1000/uL (130-400) 09/11/18 07:10 MPV 10.8 fL (8.0-11.0) 09/11/18 07:10 Immature Gran % 0.0 09/11/18 07:10 Neutrophils % 67.6 09/11/18 07:10 Lymphocytes % 22.2 09/11/18 07:10 Monocytes % 7.7 09/11/18 07:10 Eosinophils % 2.2 09/11/18 07:10 Basophils % 0.3 09/11/18 07:10 Absolute Neutrophils 4.66 k/cumm (1.2-6.7) 09/11/18 07:10 Absolute Lymphocytes 1.53 k/cumm (1.2-3.4) 09/11/18 07:10 Absolute Monocytes 0.53 k/cumm (0.11-0.7) 09/11/18 07:10 Absolute Eosinophils 0.15 k/cumm (0.0-0.7) 09/11/18 07:10 Absolute Basophils 0.02 k/cumm (0.0-0.2) 09/11/18 07:10 Sodium 137 mmol/L (136-145) 09/11/18 07:10 Potassium 2.9 mmol/L (3.5-5.1) L* 09/11/18 07:10 Chloride 99 mmol/L (98-107) 09/11/18 07:10 Carbon Dioxide 26.0 mmol/L (21.0-32.0) 09/11/18 07:10 Anion Gap 12.0 mmol/L (3-11) H 09/11/18 07:10 BUN 19 mg/dL (7-18) H 09/11/18 07:10 Creatinine 1.17 mg/dL (0.55-1.02) H 09/11/18 07:10 Estimated GFR/1.73 m2 49.80 (mL/min/1.73m2) 09/11/18 07:10 Glucose 133 mg/dL (70-100) H 09/11/18 07:10 Lactate 1.3 mmol/L (0.6-1.4) 09/10/18 20:42 Calcium 8.6 mg/dL (8.5-10.1) 09/11/18 07:10
--- NOTE | 2018-09-11 12:15 | INITIAL_ITS ---
- If Service Date Differs Date of service: 09/11/18 Time of Service: 10:37 Care Management Initial Assess REASON FOR HOSPITALIZATION:: Diverticulitis, Abdominal pain PAST MEDICAL HISTORY/PAST SURGICAL HISTORY:: DM2 (diabetes mellitus, type 2) (Chronic). Essential hypertension (Chronic). Morbid obesity (Chronic). History of bilateral oophorectomies (Resolved). History of cholecystectomy (Resolved). History of ureter repair (Resolved). Status post complete hysterectomy (Resolved) PREVIOUS FUNCTIONAL STATUS/SOCIAL/FAMILY SUPPORTS:: Radha resides with her [facility] in [place], they have been for 5 years. She states that she has two sons whom both reside in [facility]. 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 Radha is independent at baseline, she drives, and manages ADL's CURRENT FUNCTIONAL STATUS:: Currently Radha is sitting up on the edge of her bed this morning. ADVANCE DIRECTIVES:: None on file Has patient been provided with information about the portal?: Yes Did the patient sign up for the portal?: No (already signed up) CODE STATUS:: Full Code INSURANCE COVERAGE / FINANCIAL ISSUES:: BCBS CURRENT HOME/COMMUNITY SERVICES/EQUIPMENT:: Currently Radha receives no services or medical equipment in the community. PRIMARY CARE PHYSICIAN:: Danna Gonzalez POTENTIAL DISCHARGE NEEDS:: F/U appointment with [facility] PATIENT/FAMILY EDUCATION NEEDS:: Review DC instructions, any limitations, and ongoing DC planning discussion. Discuss 'Ask Me three' ANTICIPATED BARRIERS TO DISCHARGE:: None identified at this time. TRANSPORTATION:: via private vehicle with [facility] PLAN:: Radha reports that she met with Dr. Curtis this morning and that he stated that she would be at [facility] through the weekend, and potentially go to the OR on Saturday. Radha is worried about her hospital bill and would like to apply for financial assistance. CM to provide application to Radha. Radha will return home once medically cleared with no services. She will F/U with [facility] and plan of care as prescribed. Radha's [facility] to transport when ready.
[2018-09-11 13:24] VITALS: BP 94/67; PULSE 75; RESP 18; TEMP 36.8; O2SAT 97
[2018-09-11 15:42] VITALS: BP 102/72; PULSE 73; RESP 16; TEMP 36.6; O2SAT 98
[2018-09-11] MEDS: Pantoprazole 40 MG VIAL IVP (17:22)
[2018-09-11] MEDS: Insulin Aspart 300 UNITS/3 ML PEN SC (19:16)
[2018-09-11 19:34] VITALS: BP 94/58; PULSE 65; RESP 16; TEMP 36.6; O2SAT 97
[2018-09-12] VITALS (7 sets, daily range): BP systolic 102–112; BP diastolic 65–75; PULSE 66–81; RESP 16–20; TEMP 36.6–37; O2SAT 95–99
[2018-09-12] MEDS: CLINDAMYCIN 900 MG/50 ML BAG 50 MG IVPB ×5 (00:49→23:52)
[2018-09-12] MEDS: Ketorolac 30 MG/ML VIAL IV ×5 (00:50→23:51)
[2018-09-12] MEDS: Normal Saline Flush 10 ML SYR IVP ×6 (00:50→23:52)
[2018-09-12 07:31] LABS: Abs Immature Grans 0.01 k/cumm (0.0-0.09); Absolute Basophil Count 0.01 k/cumm (0.0-0.2); Absolute Eosinophil Count 0.12 k/cumm (0.0-0.7); Absolute Lymphocyte Count 1.54 k/cumm (1.2-3.4); Absolute Monocyte Count 0.37 k/cumm (0.11-0.7); Absolute Neutrophil Count 2.41 k/cumm (1.2-6.7); Basophils % 0.2; Eosinophils % 2.7; HCT 40.6 % (36.0-46.0); HGB 14.2 g/dL (12.0-15.5); Immature Grans % 0.2; Lymphocytes % 34.5; Mean Corpuscular Hemoglobin 29.8 pg (27.0-33.0); Mean Corpuscular Volume 85.3 fL (80-95); Monocytes % 8.3; Neutrophils % 54.1; Platelet Count 172 x1000/uL (130-400); RBC 4.76 m/cumm (4.00-5.20); RBC Distribution Width 12.9 % (11.7-14.6); White Blood Cell Count 4.46 k/cumm (4.4-10.8)
[2018-09-12 07:37] LABS: Anion Gap 11.1 mmol/L (3-11); BUN 16 mg/dL (7-18); CO2 24.9 mmol/L (21.0-32.0); CREATININE 1.06 mg/dL (0.55-1.02); Calcium 8.4 mg/dL (8.5-10.1); Chloride 103 mmol/L (98-107); Estimated GFR 55.81 (mL/min/1.73m2); Glucose 131 mg/dL (70-100); Potassium 3.4 mmol/L (3.5-5.1); Sodium 139 mmol/L (136-145)
[2018-09-12] MEDS: Hydrochlorothiazide 25 MG TAB PO (07:59)
[2018-09-12] MEDS: Lisinopril 5 MG TAB PO (07:59)
[2018-09-12] MEDS: CIPROFLOXACIN 400 MG/200 ML BAG 200 MG IVPB ×2 (07:59→20:48)
[2018-09-12] MEDS: HYDROmorphone 2 MG/ML VIAL IVP ×3 (08:00→20:47)
--- NOTE | 2018-09-12 10:52 | W.PM.PROGNOT ---
Documented by User: KUSHAL Jones 09/12/18 18:12 Date of Service Date of service: 09/12/18 Time of Service: 10:52 Assessment and Plan (1) Diverticulitis: Current visit: No Status: Chronic (2) Abdominal pain: Current visit: No Status: Acute Ordered PICC line consult due to difficulty maintain IV access. DIET: Clear liquids only. PAIN: Tylenol, Toradol and Dilaudid as needed. NAUSEA: Ordered Zofran and Phenergan IVPB, for she was not tolerating phenergan IM. ATB: Question of diverticulitis and small bowel fistula. Started Clindamycin and Ciprofloxacin. HYPOKALEMIA- Improved K+ 3.4 this AM. METABOLIC ACIDOSIS: Resolving. Will Recheck BMP in AM. DM TYPE 2: Finger sticks Q6H with sliding scale insulin. HTN: Started home meds (Hydrochlorothiazide and Lisinopril) NICOTINE use- Patient declined nicotine replacement. ACTIVITY- Independent. Encouraged ambulation and sitting up out of bed as tolerated. 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 She continues to have cramping abdominal pain and nausea. She states that she was given the phergren IM and it hurt so much. She reports that they have been having difficulty keeping functioning IV's. Exam Const General: cooperative, comfortable and ill appearing Orientation: alert and oriented x3 Resp Effort & Inspection: normal respiratory effort and no audible wheezes Auscultation: clear to auscultation bilaterally and no wheezes Cardio Rate: regular rate Rhythm: regular rhythm Heart Sounds: S1 normal, S2 normal and no murmurs GI Inspection: normal to inspection and non-distended Palpation: soft, no guarding and tender in the epigastrum and suprapubicly; with no rebound tenderness Objective Objective Clinical Data: Abnormal lab results 09/12/18 Range/Units 06:30 Potassium 3.4 L (3.5-5.1) mmol/L Anion Gap 11.1 H (3-11) mmol/L Creatinine 1.06 H (0.55-1.02) mg/dL Glucose 131 H (70-100) mg/dL Calcium 8.4 L (8.5-10.1) mg/dL Vital Signs Temperature 36.9 C 09/12/18 08:03 Temperature Source Tympanic 09/12/18 08:03 Pulse 66 09/12/18 08:03 Pulse Rhythm Regular 09/12/18 00:35 Respiratory Rate 20 09/12/18 08:03 Respiratory Effort Non-Labored 09/12/18 00:35 Respiratory Depth Normal 09/12/18 00:35 Respiratory Pattern Normal 09/12/18 00:35 Blood Pressure 112/75 09/12/18 08:03 Pulse Oximetry 98 09/12/18 08:03 Oxygen Delivery Method Room Air 09/12/18 08:03 Oxygen Flow Rate 0 09/12/18 08:03 Pain Level 7 09/12/18 08:03 Comment 09/12/18 04:00 Intake & Output 09/11/18 09/11/18 09/12/18 11:59 23:59 11:59 Intake Total 1847.917 / 2801.667 953.75 / 2801.667 2310 / 2310 Output Total 1000 / 1000 Balance 1847.917 / 2801.667 953.75 / 2801.667 1310 / 1310 Intake: IV 1847.917 / 2801.667 953.75 / 2801.667 50 / 50 Oral 2260 / 2260 Output: Urine 800 / 800 Stool 200 / 200 Other: Urine Color Yellow Urine Appearance Clear Clear Clear Urine Odor Normal Stool Size Moderate Stool Characteristics Soft Brown Voiding Methods Toilet Laboratory Results WBC 4.46 k/cumm (4.4-10.8) D 09/12/18 06:30 RBC 4.76 m/cumm (4.00-5.20) 09/12/18 06:30 Hgb 14.2 g/dL (12.0-15.5) 09/12/18 06:30 Hct 40.6 % (36.0-46.0) 09/12/18 06:30 MCV 85.3 fL (80-95) 09/12/18 06:30 MCH 29.8 pg (27.0-33.0) 09/12/18 06:30 MCHC 35.0 g/dL (32.0-36.0) 09/12/18 06:30 RDW 12.9 % (11.7-14.6) 09/12/18 06:30 Plt Count 172 x1000/uL (130-400) 09/12/18 06:30 MPV 11.0 fL (8.0-11.0) 09/12/18 06:30 Immature Gran % 0.2 09/12/18 06:30 Neutrophils % 54.1 09/12/18 06:30 Lymphocytes % 34.5 09/12/18 06:30 Monocytes % 8.3 09/12/18 06:30 Eosinophils % 2.7 09/12/18 06:30 Basophils % 0.2 09/12/18 06:30 Absolute Neutrophils 2.41 k/cumm (1.2-6.7) 09/12/18 06:30 Absolute Lymphocytes 1.54 k/cumm (1.2-3.4) 09/12/18 06:30 Absolute Monocytes 0.37 k/cumm (0.11-0.7) 09/12/18 06:30 Absolute Eosinophils 0.12 k/cumm (0.0-0.7) 09/12/18 06:30 Absolute Basophils 0.01 k/cumm (0.0-0.2) 09/12/18 06:30 Sodium 139 mmol/L (136-145) 09/12/18 06:30 Potassium 3.4 mmol/L (3.5-5.1) L 09/12/18 06:30 Chloride 103 mmol/L (98-107) 09/12/18 06:30 Carbon Dioxide 24.9 mmol/L (21.0-32.0) 09/12/18 06:30 Anion Gap 11.1 mmol/L (3-11) H 09/12/18 06:30 BUN 16 mg/dL (7-18) 09/12/18 06:30 Creatinine 1.06 mg/dL (0.55-1.02) H 09/12/18 06:30 Estimated GFR/1.73 m2 55.81 (mL/min/1.73m2) 09/12/18 06:30 Glucose 131 mg/dL (70-100) H 09/12/18 06:30 Lactate 1.3 mmol/L (0.6-1.4) 09/10/18 20:42 Calcium 8.4 mg/dL (8.5-10.1) L 09/12/18 06:30 Documented by User: Ayala Mittal MD 09/13/18 11:28
--- NOTE | 2018-09-12 14:34 | PDOC.CMPRO ---
- If Service Date Differs Date of service: 09/12/18 Time of Service: 14:34 Care Management Progress Note S/O: Radha is sitting on the edge of her bed when this brief writer visits this afternoon, she has family in the room whom are visiting. Radha states that she is hanging in there and discussed financial strains with this brief writer. provided Radha with the [facility] financial assistance application which she will complete. Reviewed CM role and DC plan which remains unchanged at this time. A: 47 y/o female admitted 09/10/18 for Diverticulitis, Fistula P: Radha to remain at [facility] over the weekend. The plan is for her to go to the OR on Saturday for a bowel resection. She will F/U with [facility] and plan of care once medically cleared. [facility] to transport.
--- NOTE | 2018-09-12 14:39 | CMPROGNOTE_ITS ---
- If Service Date Differs Date of service: 09/12/18 Time of Service: 14:34 Care Management Progress Note S/O: Radha is sitting on the edge of her bed when this machine sign writer visits this afternoon, she has family in the room whom are visiting. Radha states that she is hanging in there and discussed financial strains with this machine sign writer. provided Radha with the [facility] financial assistance application which she will complete. Reviewed CM role and DC plan which remains unchanged at this time. A: 47 y/o female admitted 09/10/18 for Diverticulitis, Fistula P: Radha to remain at [facility] over the weekend. The plan is for her to go to the OR on Saturday for a bowel resection. She will F/U with [facility] and plan of care once medically cleared. [facility] to transport.
[2018-09-12] MEDS: POTASSIUM CHLORIDE/0.9% NACL 1,000 ML 75 MEQ IV (17:21)
[2018-09-12] MEDS: Insulin Aspart 300 UNITS/3 ML PEN SC (18:28)
[2018-09-12] MEDS: Pantoprazole 40 MG VIAL IVP (18:28)
[2018-09-13] MEDS: CLINDAMYCIN 900 MG/50 ML BAG 50 MG IVPB ×3 (05:26→18:22)
[2018-09-13] MEDS: Normal Saline Flush 10 ML SYR IVP ×6 (05:27→17:25)
[2018-09-13] MEDS: Ketorolac 30 MG/ML VIAL IV ×3 (05:39→18:22)
[2018-09-13 05:58] VITALS: BP 114/70; PULSE 72; RESP 18; TEMP 36.6; O2SAT 96
[2018-09-13 07:10] LABS: Abs Immature Grans 0.01 k/cumm (0.0-0.09); Absolute Basophil Count 0.01 k/cumm (0.0-0.2); Absolute Eosinophil Count 0.11 k/cumm (0.0-0.7); Absolute Lymphocyte Count 1.53 k/cumm (1.2-3.4); Absolute Monocyte Count 0.23 k/cumm (0.11-0.7); Absolute Neutrophil Count 2.26 k/cumm (1.2-6.7); Basophils % 0.2; Eosinophils % 2.7; HCT 39.1 % (36.0-46.0); HGB 13.5 g/dL (12.0-15.5); Immature Grans % 0.2; Lymphocytes % 36.9; Mean Corp. HGB Concentration 34.5 g/dL (32.0-36.0); Mean Corpuscular Hemoglobin 29.5 pg (27.0-33.0); Mean Corpuscular Volume 85.6 fL (80-95); Mean Platelet Volume 10.9 fL (8.0-11.0); Monocytes % 5.5; Neutrophils % 54.5; Platelet Count 153 x1000/uL (130-400); RBC 4.57 m/cumm (4.00-5.20); White Blood Cell Count 4.15 k/cumm (4.4-10.8)
[2018-09-13 07:17] LABS: Anion Gap 9.9 mmol/L (3-11); BUN 11 mg/dL (7-18); CO2 26.1 mmol/L (21.0-32.0); CREATININE 1.04 mg/dL (0.55-1.02); Calcium 8.4 mg/dL (8.5-10.1); Chloride 104 mmol/L (98-107); Estimated GFR 57.05 (mL/min/1.73m2); Glucose 134 mg/dL (70-100); Magnesium 1.8 mg/dL (1.8-2.4); Potassium 3.7 mmol/L (3.5-5.1); Sodium 140 mmol/L (136-145)
[2018-09-13 08:05] VITALS: BP 112/74; PULSE 71; RESP 18; TEMP 36.5; O2SAT 99
[2018-09-13] MEDS: Lisinopril 5 MG TAB PO (09:06)
[2018-09-13] MEDS: Hydrochlorothiazide 25 MG TAB PO (09:06)
[2018-09-13] MEDS: CIPROFLOXACIN 400 MG/200 ML BAG 200 MG IVPB ×2 (09:06→21:15)
--- NOTE | 2018-09-13 09:43 | CMPROGNOTE_ITS ---
Care Management Progress Note S/O: Radha is awaiting a resection of her sigmoid colon with possible small bowel resection with anastomosis versus a colonoscopy on Saturday. She will have daily weights and continue to be closely monitored. Radha is refusing nicotene replacement at this time. She is being encouraged to ambulate at least four times daily. Per MD, Radha will begin surgical prep tomorrow. CM will continue to follow. A: 47 y/o female admitted 09/10/18 for Diverticulitis, Fistula P: Radha to remain at [facility] over the weekend. The plan is for her to go to the OR on Saturday for a bowel resection. She will follow up with [facility] and plan of care once medically cleared. She will transport via private vehicle with her , [facility].
[2018-09-13] MEDS: POTASSIUM CHLORIDE/0.9% NACL 1,000 ML 75 MEQ IV (11:24)
--- NOTE | 2018-09-13 11:28 | W.PM.PROGNOT ---
Date of Service Date of service: 09/13/18 Time of Service: 11:28 Assessment and Plan (1) Diverticulitis: Current visit: No Status: Chronic A\\ Diverticulitis with possible fistula on CT scan between sigmoid colon and small bowel. WBC count continues to be normal. P\\ Exploratory laparotomy with resection of sigmoid colon, possible small bowel resection, with anastamosis if safe vs colostomy on saturday Start 2 days gentle prep tomorrow Will ask Dr. Estrella if he is available to place ureteral stents (2) Abdominal pain: Current visit: No Status: Acute A// Patient is currently stable. She is feeling better then when she was admitted. Has pain with drinking clears. Continues to have liquid stools. Afebrile DIET: Clear liquids PAIN: Tylenol, Toradol and Dilaudid as needed. NAUSEA: Phenergan PRN, and Zofran DM TYPE 2: Finger sticks Q6H with sliding scale insulin. HTN: Started home meds (Hydrochlorothiazide and Lisinopril) NICOTINE use- Patient declined nicotine replacement. ACTIVITY- Independent. Encouraged ambulation at least 4 x a day and sitting up out of bed as tolerated. 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 She has decreased pain. her pain does increase after eating. Discussed Plan with her. Surgery will be scheduled for saturday. I will start a slow prep tomorrow over 2 days. Nutrition has been lacking for about 5 days due to pain and nausea. Exam Resp Effort & Inspection: normal respiratory effort Auscultation: clear to auscultation bilaterally Cardio Rate: regular rate Rhythm: regular rhythm Heart Sounds: no gallops, no murmurs and no rubs GI Inspection: normal to inspection Palpation: soft, no hepatosplenomegaly and tender in the LLQ (moderate with guarding) Auscultation: normal bowel sounds Objective Objective Clinical Data: Abnormal lab results 09/13/18 09/13/18 Range/Units 06:45 06:45 WBC 4.15 L (4.4-10.8) k/cumm Creatinine 1.04 H (0.55-1.02) mg/dL Glucose 134 H (70-100) mg/dL Calcium 8.4 L (8.5-10.1) mg/dL Vital Signs Temperature 97.7 F 09/13/18 08:05 Temperature Source Tympanic 09/13/18 08:05 Pulse 71 09/13/18 08:05 Pulse Rhythm Regular 09/13/18 00:32 Respiratory Rate 18 09/13/18 08:05 Respiratory Effort 09/13/18 00:32 Respiratory Depth Normal 09/13/18 00:32 Respiratory Pattern Normal 09/13/18 00:32 Blood Pressure 112/74 09/13/18 08:05 Pulse Oximetry 99 09/13/18 08:05 Oxygen Delivery Method Room Air 09/13/18 08:05 Oxygen Flow Rate 0 09/13/18 08:05 Pain Level 8 09/12/18 20:47 Comment 09/12/18 04:00 Intake & Output 09/12/18 09/12/18 09/13/18 11:59 23:59 11:59 Intake Total 3560 / 5410 1850 / 5410 1999 / 1999 Output Total 999 / 1999 1000 / 1999 2500 / 2500 Balance 2560 / 3410 850 / 3410 -500 / -500 Intake: IV 1300 / 1600 300 / 1600 1050 / 1050 Oral 2260 / 3810 1550 / 3810 950 / 950 Output: Urine 800 / 1800 1000 / 1800 1900 / 1900 Stool 200 / 200 600 / 600 Other: Urine Color Yellow Pale Yellow Urine Appearance Clear Clear Clear Urine Odor Normal None Normal Stool Size Moderate Large Stool Characteristics Soft Liquid Brown Voiding Methods Toilet Toilet Toilet Laboratory Results WBC 4.15 k/cumm (4.4-10.8) L 09/13/18 06:45 RBC 4.57 m/cumm (4.00-5.20) 09/13/18 06:45 Hgb 13.5 g/dL (12.0-15.5) 09/13/18 06:45 Hct 39.1 % (36.0-46.0) 09/13/18 06:45 MCV 85.6 fL (80-95) 09/13/18 06:45 MCH 29.5 pg (27.0-33.0) 09/13/18 06:45 MCHC 34.5 g/dL (32.0-36.0) 09/13/18 06:45 RDW 13.0 % (11.7-14.6) 09/13/18 06:45 Plt Count 153 x1000/uL (130-400) 09/13/18 06:45 MPV 10.9 fL (8.0-11.0) 09/13/18 06:45 Immature Gran % 0.2 09/13/18 06:45 Neutrophils % 54.5 09/13/18 06:45 Lymphocytes % 36.9 09/13/18 06:45 Monocytes % 5.5 09/13/18 06:45 Eosinophils % 2.7 09/13/18 06:45 Basophils % 0.2 09/13/18 06:45 Absolute Neutrophils 2.26 k/cumm (1.2-6.7) 09/13/18 06:45 Absolute Lymphocytes 1.53 k/cumm (1.2-3.4) 09/13/18 06:45 Absolute Monocytes 0.23 k/cumm (0.11-0.7) 09/13/18 06:45 Absolute Eosinophils 0.11 k/cumm (0.0-0.7) 09/13/18 06:45 Absolute Basophils 0.01 k/cumm (0.0-0.2) 09/13/18 06:45 Sodium 140 mmol/L (136-145) 09/13/18 06:45 Potassium 3.7 mmol/L (3.5-5.1) 09/13/18 06:45 Chloride 104 mmol/L (98-107) 09/13/18 06:45 Carbon Dioxide 26.1 mmol/L (21.0-32.0) 09/13/18 06:45 Anion Gap 9.9 mmol/L (3-11) 09/13/18 06:45 BUN 11 mg/dL (7-18) 09/13/18 06:45 Creatinine 1.04 mg/dL (0.55-1.02) H 09/13/18 06:45 Estimated GFR/1.73 m2 57.05 (mL/min/1.73m2) 09/13/18 06:45 Glucose 134 mg/dL (70-100) H 09/13/18 06:45 Lactate 1.3 mmol/L (0.6-1.4) 09/10/18 20:42 Calcium 8.4 mg/dL (8.5-10.1) L 09/13/18 06:45 Magnesium 1.8 mg/dL (1.8-2.4) 09/13/18 06:45
[2018-09-13 11:40] VITALS: BP 115/74; PULSE 67; RESP 18; TEMP 36.9; O2SAT 98
--- NOTE | 2018-09-13 12:17 | DM INPTCON_ITS ---
Date of service: 09/13/18 Time of Service: 12:00 Diabetes Inpatient Consult DESCRIPTION/ASSESSMENT: Ms. Parada is awaiting a resection of her sigmoid colon with possible small bowel resection with anastomosis versus a colonoscopy on Saturday. She has been taking clear liquids since 09/10/18 and her PO intake prior to admission is noted to be inadequate. She is taking 75-100% of her clear liquids. Diabetes consult noted for diabetes education and management. She is 69 and her weight on admission is 125 kg. Her BMI is 42 consistent with class 3 obesity. Her adjusted ideal body weight is 96 kg. Her estimated energy needs are 2325 kcals (REE x 1.2) and her estimated protein needs are 96 grams to 115 grams per day (1.0-1.2 g/kg of adjusted ideal body weight). She is getting 2.0 L of clinimix 5/15 as well as 500 calories from lipids daily. Her TPN regimen provides 1920 calories and 100 grams of protein which is 83% of her estimated calorie needs and 100% of her estimated protein needs. She is also getting approximately an additional 600 calories per day from clear liquids and minimal protein. Her finger stick blood sugars have ranged generally from 99 mg/dl to 122 mg/dl and she is on a sliding scale regimen of insulin. INTERVENTION: At this time agree with current TPN therapy until she is able to meet at least 75 % her nutritional needs by mouth to prevent malnutrition and to preserve lean body mass. senior health educator will follow up with patient to assess her diabetes education needs. PLAN: 1. RD and CDE will continue to monitor progress and follow up with her as indicated. 2. Please weigh the patient daily to help better assess her nutritional status while she is in the hospital. 3. Will evalute her nutrition care plan ongoing and adjust as needed. Thank you for the consult. Time Spent in Nutritional Counseling and Treatment: ROM
[2018-09-13] MEDS: HYDROmorphone 2 MG/ML VIAL IVP ×2 (12:30→17:24)
[2018-09-13] MEDS: Ondansetron 4 MG/2 ML VIAL IVP (14:10)
[2018-09-13 16:39] VITALS: BP 107/71; PULSE 64; RESP 18; TEMP 36.7; O2SAT 98
[2018-09-13] MEDS: Insulin Aspart 300 UNITS/3 ML PEN SC (18:21)
[2018-09-13] MEDS: Pantoprazole 40 MG VIAL IVP (18:23)
[2018-09-13 19:18] VITALS: BP 121/75; PULSE 70; RESP 19; TEMP 36.9; O2SAT 99
[2018-09-14] MEDS: CLINDAMYCIN 900 MG/50 ML BAG 50 MG IVPB ×4 (00:49→17:49)
[2018-09-14] MEDS: Ketorolac 30 MG/ML VIAL IV ×4 (00:49→17:48)
[2018-09-14] MEDS: Insulin Aspart 300 UNITS/3 ML PEN SC ×4 (00:50→17:08)
[2018-09-14] MEDS: Normal Saline Flush 10 ML SYR IVP ×5 (00:50→18:30)
[2018-09-14 06:29] VITALS: BP 124/75; PULSE 71; RESP 18; TEMP 36.7; O2SAT 98
[2018-09-14 07:14] LABS: HCT 40.1 % (36.0-46.0); HGB 13.7 g/dL (12.0-15.5); Mean Corp. HGB Concentration 34.2 g/dL (32.0-36.0); Mean Corpuscular Hemoglobin 29.7 pg (27.0-33.0); Mean Platelet Volume 11.2 fL (8.0-11.0); Platelet Count 163 x1000/uL (130-400); RBC 4.61 m/cumm (4.00-5.20); White Blood Cell Count 4.39 k/cumm (4.4-10.8)
[2018-09-14 07:24] LABS: ALT 44 U/L (12-78); AST 33 U/L (15-37); Albumin 2.9 g/dL (3.4-5.0); Alkaline Phosphatase 70 U/L (46-116); Anion Gap 6.1 mmol/L (3-11); BUN 13 mg/dL (7-18); Bilirubin, Total 0.6 mg/dL (0.2-1.0); CO2 27.9 mmol/L (21.0-32.0); CREATININE 1.05 mg/dL (0.55-1.02); Calcium 8.8 mg/dL (8.5-10.1); Chloride 106 mmol/L (98-107); Estimated GFR 56.42 (mL/min/1.73m2); Glucose 162 mg/dL (70-100); Potassium 4.2 mmol/L (3.5-5.1); Sodium 140 mmol/L (136-145); Total Protein 7.1 g/dL (6.4-8.2)
[2018-09-14 07:46] VITALS: BP 106/68; PULSE 62; RESP 18; TEMP 36.7; O2SAT 99
[2018-09-14] MEDS: Lisinopril 5 MG TAB PO (09:03)
[2018-09-14] MEDS: Hydrochlorothiazide 25 MG TAB PO (09:03)
[2018-09-14] MEDS: CIPROFLOXACIN 400 MG/200 ML BAG 200 MG IVPB ×2 (09:03→19:44)
[2018-09-14] MEDS: HYDROmorphone 2 MG/ML VIAL IVP ×2 (09:09→18:29)
--- NOTE | 2018-09-14 11:21 | W.PM.PROGNOT ---
Date of Service Date of service: 09/14/18 Time of Service: 11:22 Assessment and Plan (1) Diverticulitis: Current visit: No Status: Chronic A\\ Complicated Diverticulitis with possible small bowel fistula P\\ 1. Surgery- plan for ex-lap with sigmoid and small bowel resection with anastamosis, possible colectomy Will ask Anesthesia to see patient tomorrow for pre-op 2. Nutrition- TPN and clear liquids 3. Prep- start prep today and tomorrow 4. Labs- stable. Re-check on Saturday 5. - Will ask Dr. Estrella if he can place stents. 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 6. DVT Prophylaxis- Lovenox 40 daily SCD's Ambulation 7. 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 (3) Malnutrition: Current visit: Yes Status: Acute A\\ Mild P\\ TPN started yesterday Continue with TPN and clear liquid diet Qualifiers: Malnutrition type: protein-calorie malnutrition Protein-calorie malnutrition severity: mild Qualified Code(s): E44.1 - Mild protein-calorie malnutrition (4) DM2 (diabetes mellitus, type 2): Current visit: No Status: Chronic A\\ Slight increase in Glucose- due to TPN and inflammation P\\ Continue to check Blood sugars Q6H and cover with sliding scale Qualifiers: Diabetes mellitus terminal clerk insulin use: without terminal clerk use Diabetes mellitus complication status: without complication Qualified Code(s): E11.9 - Type 2 diabetes mellitus without complications (5) Essential hypertension: Current visit: No Status: Chronic A\\ Blood pressure has been stable P\\ Continue Home medications po for now. Will switch to IV coverage after surgery. Subjective Interval history since last seen: Radha is doing OK. No increased pain. No N/V. No fevers over night Exam Resp Effort & Inspection: normal respiratory effort Auscultation: clear to auscultation bilaterally Cardio Rate: regular rate Rhythm: regular rhythm Heart Sounds: no gallops, no murmurs and no rubs Objective Objective Clinical Data: Abnormal lab results 09/14/18 09/14/18 Range/Units 06:30 06:30 WBC 4.39 L (4.4-10.8) k/cumm MPV 11.2 H (8.0-11.0) fL Creatinine 1.05 H (0.55-1.02) mg/dL Glucose 162 H (70-100) mg/dL Albumin 2.9 L (3.4-5.0) g/dL Vital Signs Temperature 98.1 F 09/14/18 07:46 Temperature Source Tympanic 09/14/18 07:46 Pulse 62 09/14/18 07:46 Pulse Rhythm Regular 09/13/18 19:45 Respiratory Rate 18 09/14/18 07:46 Respiratory Effort 09/13/18 19:45 Respiratory Depth Normal 09/13/18 19:45 Respiratory Pattern Normal 09/13/18 19:45 Blood Pressure 106/68 09/14/18 07:46 Pulse Oximetry 99 09/14/18 07:46 Oxygen Delivery Method Room Air 09/14/18 07:46 Oxygen Flow Rate 0 09/14/18 07:46 Pain Level 9 09/14/18 09:09 Comment 09/12/18 04:00 Intake & Output 09/13/18 09/13/18 09/14/18 11:59 23:59 11:59 Intake Total 2250 / 2988.5 738.5 / 2988.5 50 / 50 Output Total 2500 / 3900 1400 / 3900 Balance -250 / -911.5 -661.5 / -911.5 50 / 50 Weight 279 lb 15.793 oz Intake: IV 1300 / 2038.5 738.5 / 2038.5 50 / 50 Oral 950 / 950 Output: Urine 1900 / 3300 1400 / 3300 Stool 600 / 600 Other: Urine Color Yellow Yellow Urine Appearance Clear Clear Urine Odor Normal None Comment UOP ind in room Stool Size Large Stool Characteristics Liquid Voiding Methods Toilet Toilet Laboratory Results WBC 4.39 k/cumm (4.4-10.8) L 09/14/18 06:30 RBC 4.61 m/cumm (4.00-5.20) 09/14/18 06:30 Hgb 13.7 g/dL (12.0-15.5) 09/14/18 06:30 Hct 40.1 % (36.0-46.0) 09/14/18 06:30 MCV 87.0 fL (80-95) 09/14/18 06:30 MCH 29.7 pg (27.0-33.0) 09/14/18 06:30 MCHC 34.2 g/dL (32.0-36.0) 09/14/18 06:30 RDW 13.0 % (11.7-14.6) 09/14/18 06:30 Plt Count 163 x1000/uL (130-400) 09/14/18 06:30 MPV 11.2 fL (8.0-11.0) H 09/14/18 06:30 Immature Gran % 0.2 09/13/18 06:45 Neutrophils % 54.5 09/13/18 06:45 Lymphocytes % 36.9 09/13/18 06:45 Monocytes % 5.5 09/13/18 06:45 Eosinophils % 2.7 09/13/18 06:45 Basophils % 0.2 09/13/18 06:45 Absolute Neutrophils 2.26 k/cumm (1.2-6.7) 09/13/18 06:45 Absolute Lymphocytes 1.53 k/cumm (1.2-3.4) 09/13/18 06:45 Absolute Monocytes 0.23 k/cumm (0.11-0.7) 09/13/18 06:45 Absolute Eosinophils 0.11 k/cumm (0.0-0.7) 09/13/18 06:45 Absolute Basophils 0.01 k/cumm (0.0-0.2) 09/13/18 06:45 Sodium 140 mmol/L (136-145) 09/14/18 06:30 Potassium 4.2 mmol/L (3.5-5.1) 09/14/18 06:30 Chloride 106 mmol/L (98-107) 09/14/18 06:30 Carbon Dioxide 27.9 mmol/L (21.0-32.0) 09/14/18 06:30 Anion Gap 6.1 mmol/L (3-11) 09/14/18 06:30 BUN 13 mg/dL (7-18) 09/14/18 06:30 Creatinine 1.05 mg/dL (0.55-1.02) H 09/14/18 06:30 Estimated GFR/1.73 m2 56.42 (mL/min/1.73m2) 09/14/18 06:30 Glucose 162 mg/dL (70-100) H 09/14/18 06:30 Lactate 1.3 mmol/L (0.6-1.4) 09/10/18 20:42 Calcium 8.8 mg/dL (8.5-10.1) 09/14/18 06:30 Phosphorus 3.0 mg/dL (2.6-4.7) 09/14/18 06:30 Magnesium 2.0 mg/dL (1.8-2.4) 09/14/18 06:30 Total Bilirubin 0.6 mg/dL (0.2-1.0) 09/14/18 06:30 AST 33 U/L (15-37) 09/14/18 06:30 ALT 44 U/L (12-78) 09/14/18 06:30 Alkaline Phosphatase 70 U/L (46-116) 09/14/18 06:30 Total Protein 7.1 g/dL (6.4-8.2) 09/14/18 06:30 Albumin 2.9 g/dL (3.4-5.0) L 09/14/18 06:30
[2018-09-14 13:10] VITALS: BP 119/66; PULSE 71; RESP 18; TEMP 36.3; O2SAT 99
[2018-09-14] MEDS: Enoxaparin 40 MG/0.4 ML SYR SC (13:11)
--- NOTE | 2018-09-14 14:29 | CMPROGNOTE_ITS ---
Care Management Progress Note S/O: Radha is awaiting a resection of her sigmoid colon with possible small bowel resection with anastomosis versus a colonoscopy on Saturday. She will have daily weights and continue to be closely monitored. Radha is refusing nicotene replacement at this time. She is being encouraged to ambulate at least four times daily and was observed ambulating consistently in the hallway. M will continue to follow. A: 47 y/o female admitted 09/10/18 for Diverticulitis, Fistula P: Radha to remain at [facility] over the weekend. The plan is for her to go to the OR on Saturday for a bowel resection. She will follow up with [facility] and plan of care once medically cleared. She will transport via private vehicle with her , [employer].
[2018-09-14 16:20] VITALS: BP 128/85; PULSE 65; RESP 18; TEMP 36.8; O2SAT 99
[2018-09-14] MEDS: Magnesium Citrate 300 ML BTL 150 ML PO (17:08)
[2018-09-14] MEDS: Pantoprazole 40 MG VIAL IVP (17:49)
[2018-09-14 19:30] VITALS: BP 127/74; PULSE 63; RESP 18; TEMP 36.6; O2SAT 99
[2018-09-14 23:30] VITALS: BP 128/69; PULSE 69; RESP 17; TEMP 36; O2SAT 100
[2018-09-15] MEDS: CLINDAMYCIN 900 MG/50 ML BAG 50 MG IVPB ×5 (00:26→23:45)
[2018-09-15] MEDS: Normal Saline Flush 10 ML SYR IVP ×7 (00:26→23:46)
[2018-09-15] MEDS: Ketorolac 30 MG/ML VIAL IV ×3 (00:27→11:52)
[2018-09-15] MEDS: Insulin Aspart 300 UNITS/3 ML PEN SC ×3 (00:27→23:44)
[2018-09-15 03:35] VITALS: BP 117/72; PULSE 56; RESP 18; TEMP 36.6; O2SAT 98
[2018-09-15 07:37] LABS: HCT 38.2 % (36.0-46.0); Mean Corpuscular Hemoglobin 29.5 pg (27.0-33.0); Mean Corpuscular Volume 86.8 fL (80-95); Mean Platelet Volume 11.3 fL (8.0-11.0); Platelet Count 150 x1000/uL (130-400); RBC Distribution Width 12.9 % (11.7-14.6); White Blood Cell Count 4.45 k/cumm (4.4-10.8)
[2018-09-15] MEDS: CIPROFLOXACIN 400 MG/200 ML BAG 200 MG IVPB ×2 (07:41→20:29)
[2018-09-15 07:44] LABS: Prothrombin Time 10.4 sec (9.3-11.0)
[2018-09-15 08:01] LABS: ALT 33 U/L (12-78); Albumin 2.6 g/dL (3.4-5.0); Alkaline Phosphatase 60 U/L (46-116); Anion Gap 6.5 mmol/L (3-11); BUN 15 mg/dL (7-18); Bilirubin, Total 0.5 mg/dL (0.2-1.0); CO2 27.5 mmol/L (21.0-32.0); CREATININE 0.98 mg/dL (0.55-1.02); Chloride 106 mmol/L (98-107); Glucose 175 mg/dL (70-100); Magnesium 1.7 mg/dL (1.8-2.4); PHOSPHORUS 2.6 mg/dL (2.6-4.7); Potassium 3.8 mmol/L (3.5-5.1); Sodium 140 mmol/L (136-145)
[2018-09-15 08:08] VITALS: BP 120/63; PULSE 67; RESP 22; TEMP 36.6; O2SAT 97
[2018-09-15] MEDS: Enoxaparin 40 MG/0.4 ML SYR SC (08:25)
[2018-09-15] MEDS: Hydrochlorothiazide 25 MG TAB PO (08:26)
[2018-09-15] MEDS: Nystatin 500000 UNITS/5 ML SUSP 5ML CUP PO (08:26)
[2018-09-15] MEDS: Lisinopril 5 MG TAB PO (08:26)
[2018-09-15] MEDS: Bisacodyl 5 MG TABEC 10 MG PO ×2 (09:34→15:29)
[2018-09-15] MEDS: HYDROmorphone 2 MG/ML VIAL IVP ×3 (09:43→19:01)
[2018-09-15 11:08] VITALS: BP 124/80; PULSE 65; RESP 20; TEMP 36.8; O2SAT 99
--- NOTE | 2018-09-15 12:27 | PDOC.CMPRO ---
- If Service Date Differs Date of service: 09/15/18 Time of Service: 12:27 Care Management Progress Note S/O:Radha is lying in bed when this chart writer visits this morning. She states that she is doing Okay and that her weekend was uneventful. Radha states that she completed the patient assistance application, though needs to get supporting documentation which she will do once she's home. Radha inquired about the timing of going to the OR tomorrow, CM requested that SHMUEL [employer], notify Radha of the timing. A: 47 y/o female admitted 09/10/18 for Diverticulitis, Fistula P: Radha to remain at [facility] over the weekend. The plan is for her to go to the OR on Saturday for a bowel resection. She will follow up with [facility] and plan of care once medically cleared. She will transport via private vehicle with her , [employer].
--- NOTE | 2018-09-15 12:50 | CMPROGNOTE_ITS ---
- If Service Date Differs Date of service: 09/15/18 Time of Service: 12:27 Care Management Progress Note S/O:Radha is lying in bed when this job specification writer visits this morning. She states that she is doing Okay and that her weekend was uneventful. Radha states that she completed the patient assistance application, though needs to get supporting documentation which she will do once she's home. Radha inquired about the timing of going to the OR tomorrow, CM requested that [employer], notify Radha of the timing. A: 47 y/o female admitted 09/10/18 for Diverticulitis, Fistula P: Radha to remain at [facility] over the weekend. The plan is for her to go to the OR on Saturday for a bowel resection. She will follow up with [facility] and plan of care once medically cleared. She will transport via private vehicle with her , [employer].
[2018-09-15] MEDS: Polyethylene Glycol 3350 238 GM BTL PO (13:04)
--- NOTE | 2018-09-15 16:06 | W.PM.PROGNOT ---
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 since last . Patient has been explained the risk benefits and alternatives and tomorrow will have surgery for colectomy small bowel resection and hernia repair. Subjective Patient reports: no new complaints Exam Const General: cooperative and healthy appearing Nutritional Appearance: obese Orientation: alert, awake and oriented x3 GI Inspection: normal to inspection and obesity Palpation: soft Percussion: normal to percussion Auscultation: normal bowel sounds Objective Objective Clinical Data: Abnormal lab results 09/15/18 09/15/18 Range/Units 07:09 07:09 MPV 11.3 H (8.0-11.0) fL Glucose 175 H (70-100) mg/dL Calcium 8.0 L (8.5-10.1) mg/dL Magnesium 1.7 L (1.8-2.4) mg/dL Albumin 2.6 L (3.4-5.0) g/dL Vital Signs Temperature 36.8 C 09/15/18 11:08 Temperature Source Tympanic 09/15/18 11:08 Pulse 65 09/15/18 11:08 Pulse Rhythm Regular 09/15/18 09:49 Respiratory Rate 20 09/15/18 11:08 Respiratory Effort 09/15/18 09:49 Respiratory Depth Normal 09/15/18 09:49 Respiratory Pattern Normal 09/15/18 09:49 Blood Pressure 124/80 09/15/18 11:08 Pulse Oximetry 99 09/15/18 11:08 Oxygen Delivery Method Room Air 09/15/18 11:08 Oxygen Flow Rate 0 09/15/18 11:08 Pain Level 9 09/15/18 14:42 Comment 09/12/18 04:00 Intake & Output 09/14/18 09/15/18 09/15/18 23:59 11:59 23:59 Intake Total 3342 / 3892 1030 / 1270 240 / 1270 Output Total 1999 1050 / 1050 Balance 1342 / 1892 -20 / 220 240 / 220 Weight 128.2 kg Intake: IV 2652 / 2752 300 / 300 Oral 690 / 1140 730 / 970 240 / 970 Output: Urine 1999 1050 / 1050 Other: Urine Color Yellow Yellow Urine Appearance Clear Clear Stool Size Moderate Stool Characteristics Liquid Voiding Methods Toilet Toilet Laboratory Results WBC 4.45 k/cumm (4.4-10.8) 09/15/18 07:09 RBC 4.40 m/cumm (4.00-5.20) 09/15/18 07:09 Hgb 13.0 g/dL (12.0-15.5) 09/15/18 07:09 Hct 38.2 % (36.0-46.0) 09/15/18 07:09 MCV 86.8 fL (80-95) 09/15/18 07:09 MCH 29.5 pg (27.0-33.0) 09/15/18 07:09 MCHC 34.0 g/dL (32.0-36.0) 09/15/18 07:09 RDW 12.9 % (11.7-14.6) 09/15/18 07:09 Plt Count 150 x1000/uL (130-400) 09/15/18 07:09 MPV 11.3 fL (8.0-11.0) H 09/15/18 07:09 Immature Gran % 0.2 09/13/18 06:45 Neutrophils % 54.5 09/13/18 06:45 Lymphocytes % 36.9 09/13/18 06:45 Monocytes % 5.5 09/13/18 06:45 Eosinophils % 2.7 09/13/18 06:45 Basophils % 0.2 09/13/18 06:45 Absolute Neutrophils 2.26 k/cumm (1.2-6.7) 09/13/18 06:45 Absolute Lymphocytes 1.53 k/cumm (1.2-3.4) 09/13/18 06:45 Absolute Monocytes 0.23 k/cumm (0.11-0.7) 09/13/18 06:45 Absolute Eosinophils 0.11 k/cumm (0.0-0.7) 09/13/18 06:45 Absolute Basophils 0.01 k/cumm (0.0-0.2) 09/13/18 06:45 PT 10.4 sec (9.3-11.0) 09/15/18 07:09 INR 1.0 (0.9-1.1) 09/15/18 07:09 Sodium 140 mmol/L (136-145) 09/15/18 07:09 Potassium 3.8 mmol/L (3.5-5.1) 09/15/18 07:09 Chloride 106 mmol/L (98-107) 09/15/18 07:09 Carbon Dioxide 27.5 mmol/L (21.0-32.0) 09/15/18 07:09 Anion Gap 6.5 mmol/L (3-11) 09/15/18 07:09 BUN 15 mg/dL (7-18) 09/15/18 07:09 Creatinine 0.98 mg/dL (0.55-1.02) 09/15/18 07:09 Estimated GFR/1.73 m2 >= 60.00 (mL/min/1.73m2) 09/15/18 07:09 Glucose 175 mg/dL (70-100) H 09/15/18 07:09 Lactate 1.3 mmol/L (0.6-1.4) 09/10/18 20:42 Calcium 8.0 mg/dL (8.5-10.1) L 09/15/18 07:09 Phosphorus 2.6 mg/dL (2.6-4.7) 09/15/18 07:09 Magnesium 1.7 mg/dL (1.8-2.4) L 09/15/18 07:09 Total Bilirubin 0.5 mg/dL (0.2-1.0) 09/15/18 07:09 AST 33 U/L (15-37) 09/14/18 06:30 ALT 33 U/L (12-78) 09/15/18 07:09 Alkaline Phosphatase 60 U/L (46-116) 09/15/18 07:09 Total Protein 7.1 g/dL (6.4-8.2) 09/14/18 06:30 Albumin 2.6 g/dL (3.4-5.0) L 09/15/18 07:09
[2018-09-15 16:22] VITALS: BP 141/83; PULSE 69; RESP 20; TEMP 36.4; O2SAT 99
[2018-09-15] MEDS: Pantoprazole 40 MG VIAL IVP (17:49)
[2018-09-15] MEDS: Ondansetron 4 MG/2 ML VIAL IVP (19:02)
[2018-09-15 19:32] VITALS: BP 121/71; PULSE 77; RESP 18; TEMP 36.7; O2SAT 94
[2018-09-15 23:39] VITALS: BP 103/67; PULSE 71; RESP 18; TEMP 36.7; O2SAT 98
[2018-09-16] VITALS (21 sets, daily range): BP systolic 64–123; BP diastolic 11–75; PULSE 74–99; RESP 17–29; TEMP 36.1–37; O2SAT 97–100
[2018-09-16] MEDS: Normal Saline Flush 10 ML SYR IVP ×5 (01:39→23:20)
[2018-09-16] MEDS: CLINDAMYCIN 900 MG/50 ML BAG 50 MG IVPB ×3 (04:59→23:44)
[2018-09-16] MEDS: Insulin Aspart 300 UNITS/3 ML PEN SC (05:31)
[2018-09-16] MEDS: HYDROmorphone 2 MG/ML VIAL IVP (06:31)
[2018-09-16 07:15] LABS: Abs Immature Grans 0.01 k/cumm (0.0-0.09); Absolute Basophil Count 0.02 k/cumm (0.0-0.2); Absolute Eosinophil Count 0.18 k/cumm (0.0-0.7); Absolute Lymphocyte Count 1.31 k/cumm (1.2-3.4); Absolute Monocyte Count 0.39 k/cumm (0.11-0.7); Absolute Neutrophil Count 2.92 k/cumm (1.2-6.7); Basophils % 0.4; Eosinophils % 3.7; HCT 38.6 % (36.0-46.0); HGB 13.4 g/dL (12.0-15.5); Immature Grans % 0.2; Lymphocytes % 27.1; Mean Corp. HGB Concentration 34.7 g/dL (32.0-36.0); Mean Corpuscular Hemoglobin 29.9 pg (27.0-33.0); Mean Corpuscular Volume 86.2 fL (80-95); Monocytes % 8.1; Neutrophils % 60.5; Platelet Count 150 x1000/uL (130-400); RBC 4.48 m/cumm (4.00-5.20); RBC Distribution Width 12.8 % (11.7-14.6); White Blood Cell Count 4.83 k/cumm (4.4-10.8)
[2018-09-16 07:16] LABS: BUN 14 mg/dL (7-18); CREATININE 1.05 mg/dL (0.55-1.02); Calcium 9.1 mg/dL (8.5-10.1); Chloride 101 mmol/L (98-107); Estimated GFR 56.42 (mL/min/1.73m2); Glucose 156 mg/dL (70-100); Magnesium 1.8 mg/dL (1.8-2.4); Potassium 3.9 mmol/L (3.5-5.1); Sodium 139 mmol/L (136-145)
[2018-09-16 07:20] LABS: PHOSPHORUS 3.8 mg/dL (2.6-4.7)
--- NOTE | 2018-09-16 07:28 | W.PM.PROGNOT ---
Date of Service Date of service: 09/16/18 Time of Service: 07:28 Assessment and Plan (1) Diverticulitis: Current visit: No Status: Chronic I discussed the procedure of cystoscopy and insertion of a temporary ureteral stent with the patient. I believe I answered all of her questions and she is ready for her upcoming surgery. (2) Fistula of small intestine: Current visit: No Status: Acute Subjective Interval history since last seen: I have been asked to place a left ureteral stent intraoperatively in preparation for her exploratory laparotomy and bowel resection. Exam Narrative Exam Narrative: I reviewed her CT scan. It appears that on the left, the 2 ureteral segments join just 1 or 2 cm below the renal pelvis where they continue down has 1 solitary ureter. Objective Objective Clinical Data: Abnormal lab results 09/15/18 09/15/18 09/16/18 Range/Units 07:09 07:09 06:25 MPV 11.3 H (8.0-11.0) fL Creatinine 1.05 H (0.55-1.02) mg/dL Glucose 175 H 156 H (70-100) mg/dL Calcium 8.0 L (8.5-10.1) mg/dL Magnesium 1.7 L (1.8-2.4) mg/dL Albumin 2.6 L (3.4-5.0) g/dL Vital Signs Temperature 36.7 C 09/15/18 23:39 Temperature Source Tympanic 09/15/18 23:39 Pulse 71 09/15/18 23:39 Pulse Rhythm Regular 09/15/18 21:07 Respiratory Rate 18 09/15/18 23:39 Respiratory Effort 09/15/18 21:07 Respiratory Depth Normal 09/15/18 21:07 Respiratory Pattern Normal 09/15/18 21:07 Blood Pressure 103/67 09/15/18 23:39 Pulse Oximetry 98 09/15/18 23:39 Oxygen Delivery Method Room Air 09/15/18 23:39 Oxygen Flow Rate 0 09/15/18 23:39 Pain Level 9 09/16/18 06:31 Comment 09/12/18 04:00 Intake & Output 09/15/18 09/15/18 09/16/18 11:59 23:59 11:59 Intake Total 1230 / 2740 1510 / 2740 1081 / 1081 Output Total 1050 / 1050 1300 / 1300 Balance 180 / 1690 1510 / 1690 -219 / -219 Weight 128.2 kg 127.4 kg Intake: IV 500 / 1050 550 / 1050 1081 / 1081 Oral 730 / 1690 960 / 1690 Output: Urine 1050 / 1050 1300 / 1300 Other: Urine Color Yellow Yellow Urine Appearance Clear Clear Clear Stool Size Moderate Stool Characteristics Liquid Liquid Brown Voiding Methods Toilet Toilet Laboratory Results WBC 4.83 k/cumm (4.4-10.8) 09/16/18 06:25 RBC 4.48 m/cumm (4.00-5.20) 09/16/18 06:25 Hgb 13.4 g/dL (12.0-15.5) 09/16/18 06:25 Hct 38.6 % (36.0-46.0) 09/16/18 06:25 MCV 86.2 fL (80-95) 09/16/18 06:25 MCH 29.9 pg (27.0-33.0) 09/16/18 06:25 MCHC 34.7 g/dL (32.0-36.0) 09/16/18 06:25 RDW 12.8 % (11.7-14.6) 09/16/18 06:25 Plt Count 150 x1000/uL (130-400) 09/16/18 06:25 MPV 11.0 fL (8.0-11.0) 09/16/18 06:25 Immature Gran % 0.2 09/16/18 06:25 Neutrophils % 60.5 09/16/18 06:25 Lymphocytes % 27.1 09/16/18 06:25 Monocytes % 8.1 09/16/18 06:25 Eosinophils % 3.7 09/16/18 06:25 Basophils % 0.4 09/16/18 06:25 Absolute Neutrophils 2.92 k/cumm (1.2-6.7) 09/16/18 06:25 Absolute Lymphocytes 1.31 k/cumm (1.2-3.4) 09/16/18 06:25 Absolute Monocytes 0.39 k/cumm (0.11-0.7) 09/16/18 06:25 Absolute Eosinophils 0.18 k/cumm (0.0-0.7) 09/16/18 06:25 Absolute Basophils 0.02 k/cumm (0.0-0.2) 09/16/18 06:25 PT 10.4 sec (9.3-11.0) 09/15/18 07:09 INR 1.0 (0.9-1.1) 09/15/18 07:09 Sodium 139 mmol/L (136-145) 09/16/18 06:25 Potassium 3.9 mmol/L (3.5-5.1) 09/16/18 06:25 Chloride 101 mmol/L (98-107) 09/16/18 06:25 Carbon Dioxide 29.0 mmol/L (21.0-32.0) 09/16/18 06:25 Anion Gap 9.0 mmol/L (3-11) 09/16/18 06:25 BUN 14 mg/dL (7-18) 09/16/18 06:25 Creatinine 1.05 mg/dL (0.55-1.02) H 09/16/18 06:25 Estimated GFR/1.73 m2 56.42 (mL/min/1.73m2) 09/16/18 06:25 Glucose 156 mg/dL (70-100) H 09/16/18 06:25 Lactate 1.3 mmol/L (0.6-1.4) 09/10/18 20:42 Calcium 9.1 mg/dL (8.5-10.1) 09/16/18 06:25 Phosphorus 2.6 mg/dL (2.6-4.7) 09/15/18 07:09 Magnesium 1.8 mg/dL (1.8-2.4) 09/16/18 06:25 Total Bilirubin 0.5 mg/dL (0.2-1.0) 09/15/18 07:09 AST 33 U/L (15-37) 09/14/18 06:30 ALT 33 U/L (12-78) 09/15/18 07:09 Alkaline Phosphatase 60 U/L (46-116) 09/15/18 07:09 Total Protein 7.1 g/dL (6.4-8.2) 09/14/18 06:30 Albumin 2.6 g/dL (3.4-5.0) L 09/15/18 07:09
[2018-09-16] MEDS: CIPROFLOXACIN 400 MG/200 ML BAG 200 MG IVPB (09:06)
[2018-09-16 11:55] LABS: Prealbumin 16 mg/dL (20-40)
[2018-09-16] MEDS: Lactated Ringers 1,000 ML 80 ML IV ×3 (12:35→20:53)
--- NOTE | 2018-09-16 12:54 | PDOC.CMPRO ---
- If Service Date Differs Date of service: 09/16/18 Time of Service: 12:54 Care Management Progress Note S/O: Radha is sitting up in bed this morning when this proposal writer visits. Radha has multiple family members in the room with her, as she is going to the OR today. Radha states that she has difficulty waiting, and it is helpful that her family is with her. Radha will go to the OR today for a bowel resection. provided her with Naila Cannon's mailing address for patient assistance application. A: 47 y/o female admitted 09/10/18 for Diverticulitis, Fistula P: Radha to remain at [facility] over the weekend. The plan is for her to go to the OR on Saturday for a bowel resection. She will follow up with [facility] and plan of care once medically cleared. She will transport via private vehicle with her , [employer].
--- NOTE | 2018-09-16 13:07 | CMPROGNOTE_ITS ---
- If Service Date Differs Date of service: 09/16/18 Time of Service: 12:54 Care Management Progress Note S/O: Radha is sitting up in bed this morning when this blog writer visits. Radha has multiple family members in the room with her, as she is going to the OR today. Radha states that she has difficulty waiting, and it is helpful that her family is with her. Radha will go to the OR today for a bowel resection. provided her with Naila Cannon's mailing address for patient assistance a pplication. A: 47 y/o female admitted 09/10/18 for Diverticulitis, Fistula P: Radha to remain at [facility] over the weekend. The plan is for her to go to the OR on Saturday for a bowel resection. She will follow up with [facility] and plan of care once medically cleared. She will transport via private vehicle with her , [employer].
--- NOTE | 2018-09-16 14:24 | ROE_ITS ---
DATE OF PROCEDURE: September 16, 2018 PREOPERATIVE DIAGNOSIS: 1. Diverticulitis. 2. Fistula of small intestine. POSTOPERATIVE DIAGNOSIS: Same. PROCEDURE: Cystoscopy; insert bilateral ureteral stents. SURGEON: Adonis Estrella M.D. ANESTHESIA: General. COMPLICATIONS: None. ESTIMATED BLOOD LOSS: Minimal. HISTORY: This is a 47-year-old woman who has a history of diverticulitis. She's recently had a perf oration and has been identified as having a likely fistula of the small intestine. She will be under going exploratory laparotomy and possible bowel resection. I have been asked to place ureteral stent s prior to the surgery to help identify and protect the ureters. OPERATIVE REPORT: The patient was brought to the Operating Room on 09/16/18. After successful induct ion of general anesthesia, she was placed in the dorsal lithotomy position. Her genitalia was preppe d and draped. A 22 Ecuadorean rigid cystoscope was passed through the urethra into the bladder. The bladder was inspec meera with a 30-degree lens. Both ureteral orifices were visualized. Each orifice was cannulated with a 6 Ecuadorean access catheter. Each catheter was advanced up the ureter until resistance was met. Once both stents were placed, t he cystoscope was removed, leaving the stents in place. Each stent was labeled based on its laterality. A 16 Ecuadorean Farr catheter was then passed through t he urethra into the bladder. The catheter balloon was inflated with 10 cc's of sterile water. The c atheter was hooked to gravity drainage. The ureteral stents were then brought into the lumen of the catheter to protect leakage intraoperatively. At the end of the procedure the catheter can be remove d and the stents will be removed along with it.
--- NOTE | 2018-09-16 15:35 | BOWEL_PTH ---
PATIENT: Radha Parada LOC: U#:[id number] AGE/SX: 48/F ROOM: RE09/10/[address]: Ayala Mittal MD : [id number] BED: A DIS: 09/25/2018 SPEC #: [id number] RECD: 09/17/18 12:29 STATUS: AMADOU REAlicia #: [id number] RAYNE: 09/16/18 15:[address]: Ayala Mittal DEPT: Surgical Specimen RECD BY: Poppy Romo ENTERED: 09/17/18 12:30 SP TYPE: Bowel OTHR DR: Danna Gonzalez Tissues: 1 - BOWEL RESECTION(OTHER) Procedures: GROSS AND MICRO LEVEL 5 Comments: [id number]
--- NOTE | 2018-09-16 17:40 | ROE_ITS ---
Date of service: 09/16/18 Time of Service: 17:19 Operative Note DATE OF PROCEDURE: 09/16/18 PRE-OP DIAGNOSIS: diverticulitis with small bowel fistula POST-OP DIAGNOSIS: other (diverticulitis with small bowel fistula, small bowel obstruction with mass) PROCEDURE: enbloc low anterior colonic resection with 2 segments of small bowel and mass resection, small bowel resection x2 with anastomosis, Splenic flexure mobilization, hernia repair x 2, loop ileostomy, lysis of adhesions, rigid sigmoidoscopy SURGEON: Maynor Curtis III ASSISTING SURGEON: Ayala Mittal MOLD STAMPER: Elam Resendiz ANESTHESIA: GETA ESTIMATED BLOOD LOSS: 300 PATHOLOGY: other (En bloc resection of sigmoid colon small bowel and mass) COMPLICATIONS: Other (Intraoperative air leak after confirmation of anastomosis with EEA stapler handsewn repair of leak performed) Patient was transported to: PACU Patient's condition: stable Indications: Patient was having severe abdominal pain with electrolyte abnormalities a CAT scan showed active diverticulitis with fistulous small bowel patient was resuscitated with her electrolytes and fluids and a bowel prep was performed prior to surgery. Findings: Patient had multiple adhesions seen throughout the abdomen requiring lysis of adhesions patient also had significant size mass in the midline just above the pubis unsure if this was a mesh or heterotrophic ossification despite not knowing what was the mass it was intimately involved with multiple loops of small bowel and the sigmoid colon itself. The mass also contain the fistula that was to be removed during the surgery. There was an element of a partial small bowel obstruction secondary to the small bowel entangled within this mass as well. Procedure Description: Patient was seen preoperatively and all risk benefits alternatives were discussed in detail with the patient and consent was obtained. Patient also had urology see for stent placement prior to surgery due to abnormal anatomy as well as the amount of pathology seen on her CAT scan. A thorough timeout was done with the entire or staff present patient received an epidural preoperatively and was brought to the operating room placed on the operating table supine fashion patient underwent general anesthesia endotracheal intubation. At this time Dr. Estrella placed bilateral ureteral stents see his portion of the dictation. Patient's abdomen was prepped and draped in a sterile fashion in lithotomy position. Patient had a midline incision with sharp dissection down to the level of the fascia from the epigastric level to the pubis upon entering the abdomen patient was noted to have multiple adhesions as well as to significant lower hernias. Once the abdomen was completely open in initial expiration was done patient had significant lysis of adhesions requiring approximately 1/2-2 hours of lysis to allow for the resection. In the lower portion of the abdomen a hard mass with small bowel intimately intertwined as well as colon was found with an element of partial small bowel obstruction and the area of fistulization from the colon to the small bowel was within this mass as well. There was a question of whether or not this was a previous mesh balled up and the bowel was entangled there was some evidence this might be heterotrophic ossification or unsure of the pathology so an en bloc resection was decided upon. Once the adhesions were freed the small bowel was run in the first portion of the small bowel entering at the proximal ileum was resected at this point with a LIZETH 60 stapler the second portion of the small bowel exiting the mass was excised in a similar matter with a 60 LIZETH stapler. Patient had a small bowel anastomosis created with a 60 LIZETH stapler with enterotomies on both sides insertion of both limbs of the stapler firing creating a common channel A Tia stapler was used to close the durotomy sites. The mesentery of the small bowel was approximated with running Vicryl suture. A second portion of small bowel that was entering the mass was excised with a 60 LIZETH stapler as well this was followed through and the exiting portion just proximal to the ileocecal valve was discovered and required excision with a 60 LIZETH stapler. With the 2 ends resected from the mass the portions to remain where anastomosis both were approximated with sutures and enterotomies placed on both sides a GI stapler was entered into each limb and a common anastomosis channel was created a TA stapler was used to close the enterotomy sites. The mesenteric defect was closed with a running Vicryl suture. The patient then required the colon resection a Bookwalter retractor was in place and adequate visualization of the descending colon was done patient had a window created in the transition from descending to sigmoid colon and a 80 GI stapler was used to transect the colon at this time dissection about the right and left ureter were done and discovered the stents were helpful in identifying the structures at this point the colonic mesentery was taken down with a LigaSure and this was carried down into the pelvis. Patient had multiple adhesions within the pelvis requiring meticulous dissection and anterior displacement of the bladder. Once the dissection was carried down to the rectum a LIZETH stapler was used to transect the colon at this point and the specimen was removed with the small bowel mass and colon all intact en bloc resection. When patient had copious irrigation of the abdomen with multiple liters of fluid patient had examination of the remaining rectum at this time with a rigid sigmoidoscopy and insufflation of the distal limb to assure there were no leaks. The colon required mobilization of the splenic flexure and white line of Toldt on the descending colon this was carried through the transverse colon to dissect the transverse colon off of the greater omentum allowing for adequate length for the anastomosis in the pelvis. With the meticulous dissection of the colon with the splenic flexure takedown there was adequate length of the colon to the pelvis at this time it was prepared for anastomosis. The patient had an auto pursestring are used to place a pursestring on the proximal portion of the small bowel the EEA a stapler Dalal was inserted into the proximal segment and the pursestring suture tied the proximal colon was cleared of any extra fat to allow for a good anastomosis. At this point the lower portion of the anastomosis was done with the EEA stapler advanced up the rectum and proper positioned on the distal staple line of the rectum. At this point the spike was deployed and connected to the bowel and under direct visualization was closed to the appropriate data conversion operator distance with a green indicator shown on the device. The staple was fired and the staple removed from the rectum at this point. The donuts were inspected and were intact and a rigid sigmoidoscopy was then again performed with a insufflation technique with the pelvis filled with saline. A small leak was noted and the saline was suctioned out of the pelvis. The small 0.2 cm defect was identified and 3 interrupted Vicryl sutures were placed at this point to secure the whole and the insufflation technique was repeated with the rigid sigmoidoscopy. The pelvis was filled with saline and no leak was seen with proximal clamping of the descending colon. Due to the initial leak observed on the insufflation test a decision for a diverting loop ileostomy was done a portion of the ileum proximal to the 2 anastomosis were brought up in the left upper quadrant and bridge placed to secure the ileostomy to the skin. Prior to closure patient had copious irrigation of fluid again with omentum tucked in the pelvis. Abdomen with running Vicryl suture x2. Patient had mario used for skin. Patient had maturation of the ileostomy after full closure of the wound. The patient had closure of the midline. A thorough debriefing was done of the case with the staff in the OR and patient was moved to PACU postoperatively for recovery and then returned to the floor postoperatively after recovery from anesthesia. Patient's family notified of operative procedures and findings and pathology sent was the sigmoid and small bowel mass en bloc resection.
[2018-09-16] MEDS: Ketorolac 30 MG/ML VIAL IVP (23:34)
[2018-09-17] VITALS (86 sets, daily range): BP systolic 87–133; BP diastolic 28–96; PULSE 79–125; RESP 12–28; TEMP 35.8–37.8; O2SAT 94–97
[2018-09-17] MEDS: CIPROFLOXACIN 400 MG/200 ML BAG 200 MG IVPB ×3 (00:10→20:22)
[2018-09-17] MEDS: Pantoprazole 40 MG VIAL IVP ×2 (00:31→18:33)
[2018-09-17] MEDS: Insulin Aspart 300 UNITS/3 ML PEN SC ×4 (01:00→18:33)
[2018-09-17] MEDS: CLINDAMYCIN 900 MG/50 ML BAG 50 MG IVPB ×3 (06:07→18:33)
[2018-09-17] MEDS: Normal Saline Flush 10 ML SYR IVP ×2 (06:32→10:13)
--- NOTE | 2018-09-17 06:47 | W.PM.PROGNOT ---
Date of Service Date of service: 09/17/18 Time of Service: 06:47 Assessment and Plan (1) S/P colectomy: Start date: 09/17/18 Start time: 06:53 Current visit: Yes Status: Acute Subjective Patient reports: no new complaints and no bowel movement Exam Const General: cooperative Chest Chest: normal inspection of the chest and normal palpation of entire chest wall Resp Effort & Inspection: normal respiratory effort and able to speak in complete sentences Auscultation: clear to auscultation bilaterally Percussion: percussion normal Cardio Jugular venous pressure: no JVD Palpation: normal PMI Rate: regular rate Rhythm: regular rhythm Heart Sounds: S1 normal and S2 normal GI Inspection: distended and incision Palpation: soft Percussion: normal to percussion Auscultation: hypoactive bowel sounds Abdomen image: 1. loop ileostomy 2. midline incision Objective Objective Clinical Data: Abnormal lab results 09/16/18 Range/Units 06:25 Creatinine 1.05 H (0.55-1.02) mg/dL Glucose 156 H (70-100) mg/dL Vital Signs Temperature 37 C 09/16/18 23:34 Temperature Source Tympanic 09/16/18 07:50 Pulse 88 09/16/18 21:40 Pulse Rhythm Regular 09/16/18 09:38 Respiratory Rate 29 H 09/16/18 21:40 Respiratory Effort Non-Labored 09/16/18 09:38 Respiratory Depth Normal 09/16/18 09:38 Respiratory Pattern Normal 09/16/18 09:38 Blood Pressure 96/46 L 09/16/18 21:40 Pulse Oximetry 97 09/16/18 21:40 Respiratory End-tidal CO2 29 09/16/18 21:40 Oxygen Delivery Method Room Air 09/16/18 21:40 Oxygen Flow Rate 2 09/16/18 20:00 Pain Level 3 09/17/18 00:34 Comment 09/12/18 04:00 Intake & Output 09/16/18 09/16/18 09/17/18 11:59 23:59 11:59 Intake Total 1371 / 4751 3380 / 4751 501 / 501 Output Total 1300 / 1850 550 / 1850 Balance 71 / 2901 2830 / 2901 501 / 501 Weight 127.4 kg Intake: IV 1371 / 4751 3380 / 4751 501 / 501 Output: Urine 1300 / 1450 150 / 1450 Estimated Blood Loss 400 / 400 Other: Urine Color Yellow Dark Red Urine Appearance Clear Cloudy Comment NUNN PLACE DURING PROCEDURE REMOVED AND THE END AND NEW NUNN CATH PLACED PRIOR TO LEAVING THE OR Emesis Description None Voiding Methods Toilet Laboratory Results WBC 4.83 k/cumm (4.4-10.8) 09/16/18 06:25 RBC 4.48 m/cumm (4.00-5.20) 09/16/18 06:25 Hgb 13.4 g/dL (12.0-15.5) 09/16/18 06:25 Hct 38.6 % (36.0-46.0) 09/16/18 06:25 MCV 86.2 fL (80-95) 09/16/18 06:25 MCH 29.9 pg (27.0-33.0) 09/16/18 06:25 MCHC 34.7 g/dL (32.0-36.0) 09/16/18 06:25 RDW 12.8 % (11.7-14.6) 09/16/18 06:25 Plt Count 150 x1000/uL (130-400) 09/16/18 06:25 MPV 11.0 fL (8.0-11.0) 09/16/18 06:25 Immature Gran % 0.2 09/16/18 06:25 Neutrophils % 60.5 09/16/18 06:25 Lymphocytes % 27.1 09/16/18 06:25 Monocytes % 8.1 09/16/18 06:25 Eosinophils % 3.7 09/16/18 06:25 Basophils % 0.4 09/16/18 06:25 Absolute Neutrophils 2.92 k/cumm (1.2-6.7) 09/16/18 06:25 Absolute Lymphocytes 1.31 k/cumm (1.2-3.4) 09/16/18 06:25 Absolute Monocytes 0.39 k/cumm (0.11-0.7) 09/16/18 06:25 Absolute Eosinophils 0.18 k/cumm (0.0-0.7) 09/16/18 06:25 Absolute Basophils 0.02 k/cumm (0.0-0.2) 09/16/18 06:25 PT 10.4 sec (9.3-11.0) 09/15/18 07:09 INR 1.0 (0.9-1.1) 09/15/18 07:09 Sodium 139 mmol/L (136-145) 09/16/18 06:25 Potassium 3.9 mmol/L (3.5-5.1) 09/16/18 06:25 Chloride 101 mmol/L (98-107) 09/16/18 06:25 Carbon Dioxide 29.0 mmol/L (21.0-32.0) 09/16/18 06:25 Anion Gap 9.0 mmol/L (3-11) 09/16/18 06:25 BUN 14 mg/dL (7-18) 09/16/18 06:25 Creatinine 1.05 mg/dL (0.55-1.02) H 09/16/18 06:25 Estimated GFR/1.73 m2 56.42 (mL/min/1.73m2) 09/16/18 06:25 Glucose 156 mg/dL (70-100) H 09/16/18 06:25 Lactate 1.3 mmol/L (0.6-1.4) 09/10/18 20:42 Calcium 9.1 mg/dL (8.5-10.1) 09/16/18 06:25 Phosphorus 3.8 mg/dL (2.6-4.7) 09/16/18 06:25 Magnesium 1.8 mg/dL (1.8-2.4) 09/16/18 06:25 Total Bilirubin 0.5 mg/dL (0.2-1.0) 09/15/18 07:09 AST 33 U/L (15-37) 09/14/18 06:30 ALT 33 U/L (12-78) 09/15/18 07:09 Alkaline Phosphatase 60 U/L (46-116) 09/15/18 07:09 Total Protein 7.1 g/dL (6.4-8.2) 09/14/18 06:30 Albumin 2.6 g/dL (3.4-5.0) L 09/15/18 07:09
[2018-09-17 07:25] LABS: Abs Immature Grans 0.04 k/cumm (0.0-0.09); Absolute Monocyte Count 1.47 k/cumm (0.11-0.7); Basophils % 0.1; Eosinophils % 0.1; HCT 37.6 % (36.0-46.0); HGB 13.1 g/dL (12.0-15.5); Immature Grans % 0.3; Lymphocytes % 8.8; Mean Corp. HGB Concentration 34.8 g/dL (32.0-36.0); Mean Corpuscular Hemoglobin 29.8 pg (27.0-33.0); Mean Corpuscular Volume 85.6 fL (80-95); Mean Platelet Volume 11.5 fL (8.0-11.0); Neutrophils % 79.7; Platelet Count 184 x1000/uL (130-400); RBC 4.39 m/cumm (4.00-5.20); RBC Distribution Width 12.8 % (11.7-14.6); White Blood Cell Count 13.35 k/cumm (4.4-10.8)
[2018-09-17 07:26] LABS: Absolute Basophil Count 0.01 k/cumm (0.0-0.2); Absolute Eosinophil Count 0.01 k/cumm (0.0-0.7); Absolute Lymphocyte Count 1.17 k/cumm (1.2-3.4); Absolute Neutrophil Count 10.64 k/cumm (1.2-6.7)
[2018-09-17 07:33] LABS: BUN 25 mg/dL (7-18); CREATININE 1.45 mg/dL (0.55-1.02); Calcium 8.2 mg/dL (8.5-10.1); Chloride 99 mmol/L (98-107); Estimated GFR 38.88 (mL/min/1.73m2); Glucose 236 mg/dL (70-100); Potassium 4.1 mmol/L (3.5-5.1); Sodium 134 mmol/L (136-145)
[2018-09-17] MEDS: Enoxaparin 40 MG/0.4 ML SYR SC (10:31)
[2018-09-17] MEDS: Ketorolac 30 MG/ML VIAL IVP ×3 (10:49→20:30)
--- NOTE | 2018-09-17 11:09 | PDOC.CMPRO ---
- If Service Date Differs Date of service: 09/17/18 Time of Service: 11:10 Care Management Progress Note S/O: Radha is lying in bed this morning when this database report writer visits. She was transferred to the ICU yesterday post operatively, and states that she was not anticipating being in the ICU after surgery. Radha had her eyes closed throughout most of the visit, and states that she is feeling tired this morning, she watches some TV during visit as well and states that her throat is sore. notified SHMUEL Canales, of Radha's sore throat and that she is requesting something for this. A: 47 y/o female admitted 09/10/18 for Diverticulitis, Fistula P: Radha went to the OR yesterday 09/16/18 for bowel resection. She will return home with no anticipated services once medically cleared. Radha's family will transport her when ready.
--- NOTE | 2018-09-17 11:14 | CMPROGNOTE_ITS ---
- If Service Date Differs Date of service: 09/17/18 Time of Service: 11:10 Care Management Progress Note S/O: Radha is lying in bed this morning when this narrative writer visits. She was transferred to the ICU yesterday post operatively, and states that she was not anticipating being in the ICU after surgery. Radha had her eyes closed throughout most of the visit, and states that she is feeling tired this morning, she watches some TV during visit as well and states that her throat is sore. notified SHMUEL Canales, of Radha's sore throat and that she is requesting something for this. A: 47 y/o female admitted 09/10/18 for Diverticulitis, Fistula P: Radha went to the OR yesterday 09/16/18 for bowel resection. She will return home with no anticipated services once medically cleared. Radha's family will transport her when ready.
--- NOTE | 2018-09-17 13:49 | CHAPLAIN ---
Radha was sitting up in her chair when I visited, but was clearly tired. She said she feels exhausted, and didn't get much sleep last night, but I'm okay, she told me. Her was here earlier to visit this morning, but Radha said she sent him home because he was sick, but I'm okay, she told me again. After our visit she asked me to ask the nurse to get her back into bed.
--- NOTE | 2018-09-17 13:49 | PDOC.ANES ---
ANESTHESIA PROGRESS NOTE Pt sitting up in bed, talking with her . Pt states that she is feeling good, considering.... Further questioning finds that pt has no pain in her abdomen unless she laughs (which she says she has been doing a lot of) or coughs (using pillow as a splint). Any pain she states, is in her throat and right ear. Closer examination of these areas does not reveal any notable trauma. The patient is in on TPN at 85cc/hr , Lipids 31 cc/hr, and a Phenylephrine drip that was at 22mcg/min this AM before being weaned off. The patient is hemodynamically stable by NIBP Q 15 min. The pt has been up to a chair x 60 min. Pain is well tolerated, requiring only Toradol IV to prepare for the move to the chair. Epidural will remain at 10cc/hr with a PCEA of 5cc Q 15 min lockout of 30 cc/hr. Strong motor strength bilaterally in LE, but they tend to fall asleep if I don't move them around. Weaning the Epidural will be assessed in the AM.
[2018-09-18] VITALS (22 sets, daily range): BP systolic 89–108; BP diastolic 44–62; PULSE 81–104; RESP 16–28; TEMP 36.6–38; O2SAT 94–99
[2018-09-18] MEDS: CLINDAMYCIN 900 MG/50 ML BAG 50 MG IVPB ×4 (00:17→19:49)
[2018-09-18] MEDS: Insulin Aspart 300 UNITS/3 ML PEN SC ×5 (00:52→23:37)
[2018-09-18] MEDS: Ketorolac 30 MG/ML VIAL IVP ×3 (03:00→15:13)
[2018-09-18] MEDS: Lactated Ringers 1,000 ML 80 ML IV (06:17)
--- NOTE | 2018-09-18 06:40 | W.PM.PROGNOT ---
Date of Service Date of service: 09/17/18 Time of Service: 18:43 Assessment and Plan (1) S/P colectomy: Current visit: Yes Status: Acute pt was oub restarted LR for low UO pt oob to chair 2x ileostomy functioning Subjective Patient reports: no new complaints Exam Const General: cooperative Orientation: alert, awake and oriented x3 GI Other: ostomy functioning Objective Objective Clinical Data: Abnormal lab results 09/15/18 09/17/18 09/17/18 Range/Units 07:09 06:40 06:40 WBC 13.35 H D (4.4-10.8) k/cumm MPV 11.5 H (8.0-11.0) fL Absolute Neutrophils 10.64 H (1.2-6.7) k/cumm Absolute Lymphocytes 1.17 L (1.2-3.4) k/cumm Absolute Monocytes 1.47 H (0.11-0.7) k/cumm Sodium 134 L (136-145) mmol/L BUN 25 H D (7-18) mg/dL Creatinine 1.45 H (0.55-1.02) mg/dL Glucose 236 H D (70-100) mg/dL Calcium 8.2 L (8.5-10.1) mg/dL Prealbumin 16 L (20-40) mg/dL Vital Signs Temperature 37.0 C 09/18/18 03:00 Temperature Source Temporal Artery Scan 09/18/18 03:00 Pulse 82 09/18/18 04:01 Pulse Rhythm Regular 09/16/18 09:38 Pulse 86 09/18/18 04:01 Respiratory Rate 17 09/18/18 04:01 Respiratory Effort Non-Labored 09/18/18 03:00 Respiratory Depth Shallow 09/18/18 03:00 Respiratory Pattern Normal 09/18/18 03:00 Blood Pressure 102/44 L 09/18/18 04:01 Blood Pressure Mean 55 09/18/18 04:01 Blood Pressure Position Right Lateral 09/18/18 03:00 Pulse Oximetry 95 09/18/18 03:00 Respiratory End-tidal CO2 29 09/16/18 21:40 Oxygen Delivery Method Room Air 09/18/18 03:00 Oxygen Flow Rate 0 09/18/18 03:00 Pain Level 0 09/18/18 04:00 Comment 09/12/18 04:00 Intake & Output 09/17/18 09/17/18 09/18/18 11:59 23:59 11:59 Intake Total 809.6 / 2971.187 2161.587 / 2971.187 1050 / 1050 Output Total 2009 150 / 150 Balance -65.4 / 551.115 3187.587 / 961.187 900 / 900 Weight 127.8 kg Intake: IV 809.6 / 2771.187 1961.587 / 2771.187 850 / 850 Oral 200 / 200 200 / 200 Output: Gastric Drainage 100 / 325 225 / 325 Left Nare 100 / 325 225 / 325 Urine 775 / 1250 475 / 1250 Stool 435 / 435 150 / 150 Other: Urine Color Light Sharmaine Light Sharmaine Light Sharmaine Urine Appearance Clear Cloudy Cloudy Comment Farr in place Farr in place draining QS. Farr in place draining QS. Gastric Occult Blood Left Nare Positive Positive Positive Laboratory Results WBC 13.35 k/cumm (4.4-10.8) H D 09/17/18 06:40 RBC 4.39 m/cumm (4.00-5.20) 09/17/18 06:40 Hgb 13.1 g/dL (12.0-15.5) 09/17/18 06:40 Hct 37.6 % (36.0-46.0) 09/17/18 06:40 MCV 85.6 fL (80-95) 09/17/18 06:40 MCH 29.8 pg (27.0-33.0) 09/17/18 06:40 MCHC 34.8 g/dL (32.0-36.0) 09/17/18 06:40 RDW 12.8 % (11.7-14.6) 09/17/18 06:40 Plt Count 184 x1000/uL (130-400) 09/17/18 06:40 MPV 11.5 fL (8.0-11.0) H 09/17/18 06:40 Immature Gran % 0.3 09/17/18 06:40 Neutrophils % 79.7 09/17/18 06:40 Lymphocytes % 8.8 09/17/18 06:40 Monocytes % 11.0 09/17/18 06:40 Eosinophils % 0.1 09/17/18 06:40 Basophils % 0.1 09/17/18 06:40 Absolute Neutrophils 10.64 k/cumm (1.2-6.7) H 09/17/18 06:40 Absolute Lymphocytes 1.17 k/cumm (1.2-3.4) L 09/17/18 06:40 Absolute Monocytes 1.47 k/cumm (0.11-0.7) H 09/17/18 06:40 Absolute Eosinophils 0.01 k/cumm (0.0-0.7) 09/17/18 06:40 Absolute Basophils 0.01 k/cumm (0.0-0.2) 09/17/18 06:40 PT 10.4 sec (9.3-11.0) 09/15/18 07:09 INR 1.0 (0.9-1.1) 09/15/18 07:09 Sodium 134 mmol/L (136-145) L 09/17/18 06:40 Potassium 4.1 mmol/L (3.5-5.1) 09/17/18 06:40 Chloride 99 mmol/L (98-107) 09/17/18 06:40 Carbon Dioxide 25.0 mmol/L (21.0-32.0) 09/17/18 06:40 Anion Gap 10.0 mmol/L (3-11) 09/17/18 06:40 BUN 25 mg/dL (7-18) H D 09/17/18 06:40 Creatinine 1.45 mg/dL (0.55-1.02) H 09/17/18 06:40 Estimated GFR/1.73 m2 38.88 (mL/min/1.73m2) 09/17/18 06:40 Glucose 236 mg/dL (70-100) H D 09/17/18 06:40 Lactate 1.3 mmol/L (0.6-1.4) 09/10/18 20:42 Calcium 8.2 mg/dL (8.5-10.1) L 09/17/18 06:40 Phosphorus 3.8 mg/dL (2.6-4.7) 09/16/18 06:25 Magnesium 1.8 mg/dL (1.8-2.4) 09/16/18 06:25 Total Bilirubin 0.5 mg/dL (0.2-1.0) 09/15/18 07:09 AST 33 U/L (15-37) 09/14/18 06:30 ALT 33 U/L (12-78) 09/15/18 07:09 Alkaline Phosphatase 60 U/L (46-116) 09/15/18 07:09 Total Protein 7.1 g/dL (6.4-8.2) 09/14/18 06:30 Albumin 2.6 g/dL (3.4-5.0) L 09/15/18 07:09 Prealbumin 16 mg/dL (20-40) L 09/15/18 07:09
--- NOTE | 2018-09-18 07:12 | W.PM.PROGNOT ---
Date of Service Date of service: 09/18/18 Time of Service: 07:13 Assessment and Plan (1) S/P colectomy: Start date: 09/18/18 Start time: 07:14 Current visit: Yes Status: Acute cont ngt output high Subjective Patient reports: no new complaints Interval history since last seen: small drainage at bottom of wound Exam Const General: cooperative Orientation: alert, awake and oriented x3 GI Inspection: normal to inspection and incision Palpation: soft Percussion: normal to percussion Auscultation: normal bowel sounds Other: ostomy funtioning Objective Objective Clinical Data: Abnormal lab results 09/15/18 09/17/18 09/17/18 Range/Units 07:09 06:40 06:40 WBC 13.35 H D (4.4-10.8) k/cumm MPV 11.5 H (8.0-11.0) fL Absolute Neutrophils 10.64 H (1.2-6.7) k/cumm Absolute Lymphocytes 1.17 L (1.2-3.4) k/cumm Absolute Monocytes 1.47 H (0.11-0.7) k/cumm Sodium 134 L (136-145) mmol/L BUN 25 H D (7-18) mg/dL Creatinine 1.45 H (0.55-1.02) mg/dL Glucose 236 H D (70-100) mg/dL Calcium 8.2 L (8.5-10.1) mg/dL Prealbumin 16 L (20-40) mg/dL Vital Signs Temperature 37.0 C 09/18/18 03:00 Temperature Source Temporal Artery Scan 09/18/18 03:00 Pulse 82 09/18/18 04:01 Pulse Rhythm Regular 09/16/18 09:38 Pulse 86 09/18/18 04:01 Respiratory Rate 17 09/18/18 04:01 Respiratory Effort Non-Labored 09/18/18 03:00 Respiratory Depth Shallow 09/18/18 03:00 Respiratory Pattern Normal 09/18/18 03:00 Blood Pressure 102/44 L 09/18/18 04:01 Blood Pressure Mean 55 09/18/18 04:01 Blood Pressure Position Right Lateral 09/18/18 03:00 Pulse Oximetry 95 09/18/18 03:00 Respiratory End-tidal CO2 29 09/16/18 21:40 Oxygen Delivery Method Room Air 09/18/18 03:00 Oxygen Flow Rate 0 09/18/18 03:00 Pain Level 0 09/18/18 04:00 Comment 09/12/18 04:00 Intake & Output 09/17/18 09/17/18 09/18/18 11:59 23:59 11:59 Intake Total 809.6 / 2971.187 2161.587 / 2971.187 1050 / 1050 Output Total 2009 525 / 525 Balance -65.4 / 575.132 2807.587 / 961.187 525 / 525 Weight 127.8 kg 133.1 kg Intake: IV 809.6 / 2771.187 1961.587 / 2771.187 850 / 850 Oral 200 / 200 200 / 200 Output: Gastric Drainage 100 / 325 225 / 325 150 / 150 Left Nare 100 / 325 225 / 325 150 / 150 Urine 775 / 1250 475 / 1250 225 / 225 Stool 435 / 435 150 / 150 Other: Urine Color Light Sharmaine Light Sharmaine Light Sharmaine Urine Appearance Clear Cloudy Cloudy Comment Farr in place Farr in place draining QS. Farr in place draining QS. Gastric Occult Blood Left Nare Positive Positive Positive Laboratory Results WBC 13.35 k/cumm (4.4-10.8) H D 09/17/18 06:40 RBC 4.39 m/cumm (4.00-5.20) 09/17/18 06:40 Hgb 13.1 g/dL (12.0-15.5) 09/17/18 06:40 Hct 37.6 % (36.0-46.0) 09/17/18 06:40 MCV 85.6 fL (80-95) 09/17/18 06:40 MCH 29.8 pg (27.0-33.0) 09/17/18 06:40 MCHC 34.8 g/dL (32.0-36.0) 09/17/18 06:40 RDW 12.8 % (11.7-14.6) 09/17/18 06:40 Plt Count 184 x1000/uL (130-400) 09/17/18 06:40 MPV 11.5 fL (8.0-11.0) H 09/17/18 06:40 Immature Gran % 0.3 09/17/18 06:40 Neutrophils % 79.7 09/17/18 06:40 Lymphocytes % 8.8 09/17/18 06:40 Monocytes % 11.0 09/17/18 06:40 Eosinophils % 0.1 09/17/18 06:40 Basophils % 0.1 09/17/18 06:40 Absolute Neutrophils 10.64 k/cumm (1.2-6.7) H 09/17/18 06:40 Absolute Lymphocytes 1.17 k/cumm (1.2-3.4) L 09/17/18 06:40 Absolute Monocytes 1.47 k/cumm (0.11-0.7) H 09/17/18 06:40 Absolute Eosinophils 0.01 k/cumm (0.0-0.7) 09/17/18 06:40 Absolute Basophils 0.01 k/cumm (0.0-0.2) 09/17/18 06:40 PT 10.4 sec (9.3-11.0) 09/15/18 07:09 INR 1.0 (0.9-1.1) 09/15/18 07:09 Sodium 134 mmol/L (136-145) L 09/17/18 06:40 Potassium 4.1 mmol/L (3.5-5.1) 09/17/18 06:40 Chloride 99 mmol/L (98-107) 09/17/18 06:40 Carbon Dioxide 25.0 mmol/L (21.0-32.0) 09/17/18 06:40 Anion Gap 10.0 mmol/L (3-11) 09/17/18 06:40 BUN 25 mg/dL (7-18) H D 09/17/18 06:40 Creatinine 1.45 mg/dL (0.55-1.02) H 09/17/18 06:40 Estimated GFR/1.73 m2 38.88 (mL/min/1.73m2) 09/17/18 06:40 Glucose 236 mg/dL (70-100) H D 09/17/18 06:40 Lactate 1.3 mmol/L (0.6-1.4) 09/10/18 20:42 Calcium 8.2 mg/dL (8.5-10.1) L 09/17/18 06:40 Phosphorus 3.8 mg/dL (2.6-4.7) 09/16/18 06:25 Magnesium 1.8 mg/dL (1.8-2.4) 09/16/18 06:25 Total Bilirubin 0.5 mg/dL (0.2-1.0) 09/15/18 07:09 AST 33 U/L (15-37) 09/14/18 06:30 ALT 33 U/L (12-78) 09/15/18 07:09 Alkaline Phosphatase 60 U/L (46-116) 09/15/18 07:09 Total Protein 7.1 g/dL (6.4-8.2) 09/14/18 06:30 Albumin 2.6 g/dL (3.4-5.0) L 09/15/18 07:09 Prealbumin 16 mg/dL (20-40) L 09/15/18 07:09
[2018-09-18] MEDS: Enoxaparin 40 MG/0.4 ML SYR SC (09:01)
[2018-09-18] MEDS: CIPROFLOXACIN 400 MG/200 ML BAG 200 MG IVPB ×2 (09:03→20:57)
[2018-09-18] MEDS: Normal Saline Flush 10 ML SYR IVP ×4 (13:12→23:32)
--- NOTE | 2018-09-18 13:24 | PDOC.CMPRO ---
- If Service Date Differs Date of service: 09/18/18 Time of Service: 13:24 Care Management Progress Note S/O: Radha is in the ICU this morning when this lead technical writer visits, she is lying in bed and is open to discussion. Radha states that she is feeling somewhat better today and reports that she will be transitioning to a med/surg level of care today. Radha states that her is ill and will not be in to visit today. A: 47 y/o female admitted 09/10/18 for Diverticulitis, Fistula P: Radha went to the OR yesterday 09/16/18 for bowel resection. She will return home with no anticipated services once medically cleared. Radha's family will transport her when ready.
--- NOTE | 2018-09-18 13:25 | PDOC.ANES ---
Date of service: 09/18/18 Time of Service: 13:25 Anesthesia Note Report Anesthesia Note: Bedside discussion with patient and stated pleased with epidural analgesia. Noted some breakthrough discomfort when up walking today, no motor weakness. Epidural catheter site and dressing remain clean and intact. Patient has been switched from ICU to Med/Surg status. Infusion rate remains 10 ml/hr and plan to start weaning tomorrow.
--- NOTE | 2018-09-18 13:29 | CMPROGNOTE_ITS ---
- If Service Date Differs Date of service: 09/18/18 Time of Service: 13:24 Care Management Progress Note S/O: Radha is in the ICU this morning when this chief writer visits, she is lying in bed and is open to discussion. Radha states that she is feeling somewhat better today and reports that she will be transitioning to a med/surg level of care today. Radha states that her is ill and will not be in to visit today. A: 47 y/o female admitted 09/10/18 for Diverticulitis, Fistula P: Radha went to the OR yesterday 09/16/18 for bowel resection. She will return home with no anticipated services once medically cleared. Radha's family will transport her when ready.
--- NOTE | 2018-09-18 14:10 | CHAPLAIN ---
Radha said she is gradually getting better, but still feeling wiped out. She's asked her not to visit since he doesn't feel well.
[2018-09-18] MEDS: Pantoprazole 40 MG VIAL IVP (18:42)
[2018-09-18] MEDS: ACETAMINOPHEN 1,000 MG/100 ML BTL 400 MG IVPB (18:48)
[2018-09-18] MEDS: diphenhydrAMINE 50 MG/ML VIAL 25 MG IVP ×2 (19:42→23:18)
--- NOTE | 2018-09-18 21:50 | NUR.NOTE ---
Nursing Note: Report received from Guerda Sullivan RN. Further questions answered by SHMUEL Canales in ICU. Patient transferred from ICU to Med/Surg room 209 via her bed at 1539
[2018-09-18] MEDS: Lactated Ringers 1,000 ML 100 ML IV (23:30)
--- NOTE | 2018-09-18 23:42 | NUR.NOTE ---
Nursing Note: At approximately 1830 this patient rang her call bansal and c/o her back itching. Upon visualization of her back there were noted scratch dunn from where she had scratched herself and mild erythema to her lower back each side of her epidural dressing. Clinical Coordinator, Magali Ortega RNCC notified who in turn notified the MD and a one time order for Benadryl was obtained and given with good relief. Just before 2300 this patient rang again and once again c/o itching. This time the itching was affecting her back, posterior neck, posterior head, and wrapped around her ribs to just under her breasts bilaterally. Upon visualization this RN found a red, raised, welt appearing rash, like hives, on all of the areas she said was itching. The clinical coordinator was advised and she in turn notified the MD of the patient's rash, low BP and temperature. See MD notification intervention for the MD's orders
[2018-09-19] VITALS (7 sets, daily range): BP systolic 98–119; BP diastolic 62–71; PULSE 82–95; RESP 17–20; TEMP 37.3–38.2; O2SAT 95–99
[2018-09-19] MEDS: Normal Saline Flush 10 ML SYR IVP ×10 (02:06→17:54)
[2018-09-19] MEDS: Ketorolac 30 MG/ML VIAL IVP ×4 (02:06→23:44)
[2018-09-19] MEDS: diphenhydrAMINE 50 MG/ML VIAL 25 MG IVP ×4 (04:02→16:38)
[2018-09-19] MEDS: Insulin Aspart 300 UNITS/3 ML PEN SC ×4 (06:43→23:45)
[2018-09-19 07:03] LABS: HCT 31.3 % (36.0-46.0); HGB 10.5 g/dL (12.0-15.5); Mean Corp. HGB Concentration 33.5 g/dL (32.0-36.0); Mean Corpuscular Volume 86.5 fL (80-95); Mean Platelet Volume 11.8 fL (8.0-11.0); Platelet Count 137 x1000/uL (130-400); RBC 3.62 m/cumm (4.00-5.20); White Blood Cell Count 7.51 k/cumm (4.4-10.8)
[2018-09-19 07:37] LABS: Prothrombin Time 10.3 sec (9.3-11.0)
[2018-09-19 07:38] LABS: ALT 29 U/L (12-78); Anion Gap 7.2 mmol/L (3-11); Bilirubin, Total 0.7 mg/dL (0.2-1.0); CO2 24.8 mmol/L (21.0-32.0); Chloride 98 mmol/L (98-107); Glucose 207 mg/dL (70-100); Magnesium 2.1 mg/dL (1.8-2.4); Potassium 4.3 mmol/L (3.5-5.1); Sodium 130 mmol/L (136-145)
--- NOTE | 2018-09-19 07:42 | DI.VRAD_ITS ---
EXAM: XR Chest, 1 View EXAM DATE/TIME: 09/19/2018 12:01 AM CLINICAL HISTORY: 48 years old, female; Signs and symptoms; Other: Temperature and low BP; Patient HX: Temp and low BP TECHNIQUE: XR of the chest, 1 view. COMPARISON: No relevant prior studies available. FINDINGS: Tubes, catheters and devices: Left-sided PICC line with its tip probably in the right atrium. Enteric tube is in place, coursing into the stomach and terminating below the field of view. Lungs: Increased markings throughout the lungs may represent bronchitis/bronchiolitis. No consolidation. Suspect minimal right basilar atelectasis laterally. Pleural space: No significant pleural effusion. No pneumothorax. Heart/Mediastinum: Cardiac size normal. Vasculature: Atherosclerotic calcification within the aorta without aneurysm. Bones/joints: Mild degenerative changes noted throughout the spine. IMPRESSION: Findings suggest possibility of bronchitis/bronchiolitis. Minimal right basilar atelectasis. Various tubes and catheters as described. Dictated and Authenticated by: Eliazar Cornelius MD. Ordering:VAN Hernandez MD
[2018-09-19 07:50] LABS: PHOSPHORUS 2.7 mg/dL (2.6-4.7)
[2018-09-19 08:01] LABS: Albumin 1.9 g/dL (3.4-5.0); Alkaline Phosphatase 50 U/L (46-116)
--- NOTE | 2018-09-19 08:30 | DI.RAD_ITS ---
SYMPTOM/DIAGNOSIS: FEVER, HYPOTENSION PORTABLE AP CHEST: No priors. Heart size and pulmonary vasculature are within normal limits. There is a nasogastric tube with the tip seen coursing into the stomach. The distal tip is not included on the film. There is a left PICC line, the tip of the catheter appears in the region of the superior vena cava and right atrial junction. No focal consolidating infiltrates, effusions or pneumothoraxes are identified. Mild perihilar increased lung markings are present which may represent a bronchiolitis/bronchitis. IMPRESSION: 1. Findings raising the question of a bronchiolitis or bronchitis. 2. Tubes and catheters in good position.
--- NOTE | 2018-09-19 09:15 | PDOC.ANES ---
Date of service: 09/19/18 Time of Service: 09:00 Anesthesia Note Report Anesthesia Note: Patient resting comfortably in bed, epidural infusion running. Basal rate turned down to 8 ml/hr from 10 ml/hr. Patient has been ambulating without weakness. Will assess patient for breakthrough pain and reassess in several hours. Dressing and catheter intact.
[2018-09-19] MEDS: Lactated Ringers 1,000 ML 100 ML IV ×2 (09:43→21:40)
[2018-09-19] MEDS: Enoxaparin 40 MG/0.4 ML SYR SC (09:56)
[2018-09-19] MEDS: CIPROFLOXACIN 400 MG/200 ML BAG 200 MG IVPB (10:28)
--- NOTE | 2018-09-19 11:25 | PGE_ITS ---
Date of Service Date of service: 09/19/18 Time of Service: 11:23 Assessment and Plan (1) S/P colectomy: Current visit: Yes Status: Acute POD# 3 s/p en bloc LAR with small bowel anastomoses x 2, colorectal anastomosis, and diverting loop ileostomy. Pain managed with epidural. Being weaned per anesthesia. NG with minimal output. Output is watery, consistent with po ice chips intake. Will d/c NG. Keep NPO except ice chips today. Diffuse hives - ? med allergy. Will d/c both Cipro and Clindamycin. Patient has completed 8 day course of both. WBC normalized. Low grade temp - suspect may be related to atelectasis/bronchitis on CXR. Encouraged IS use. Will monitor temp and CBC off antibiotics. Benadryl prn itching/hives. BP stable at 100s/50s. Continue IVF with LR in addition to TPN. Creatinine improved from 1.45 to 1.3. (2) Malnutrition: Current visit: Yes Status: Acute Continue TPN. Recheck prealbumin. NG d/c'd today. May start clears 09/20 if tolerating NG out. Qualifiers: Malnutrition type: protein-calorie malnutrition Protein-calorie malnutrition severity: mild Qualified Code(s): E44.1 - Mild protein-calorie malnutrition Subjective Interval history since last seen: 48 y/o female seen in wheelchair at bedside. Patient had c/o itching yesterday evening which progressed to diffuse hives. She has not had any recent change in meds. She has been on Ciprofloxacin and Clindamycin since admission on 09/10/18. Clindamycin held overnight. Some improvement in hives overnight noted per staff. Cipro dose received this am. Per patient, itching and hives seem to be worse again. Patient is taking ice chips. NG output 400 cc/24 hours - clear, watery, bile-tinged. Labs reviewed. Low grade temp ~ 38. CXR this am with minimal right basilar atelectasis on VRADS report and possible bronchitis/bronchiolitis. Notes pain is well controlled with epidural. Exam Const General: cooperative and no acute distress Nutritional Appearance: obese Orientation: alert and oriented x3 HENMT Head: normocephalic and atraumatic Eyes Sclera: sclerae normal Resp Effort & Inspection: normal respiratory effort and able to speak in complete sen tences Cardio Jugular venous pressure: no JVD Rate: regular rate Rhythm: regular rhythm GI Inspection: non-distended and incision (midline mario intact) Palpation: soft, not firm, no guarding and not rigid Auscultation: normal bowel sounds Skin General skin exam: no jaundice Rashes: rashes noted (diffuse large pink hives on lower extremities, torso, and upper extremities) Neuro General: alert and oriented x3 Speech: speech normal Objective Objective Clinical Data: Abnormal lab results 09/19/18 09/19/18 09/19/18 Range/Units 06:25 06:25 06:25 RBC 3.62 L (4.00-5.20) m/cumm Hgb 10.5 L D (12.0-15.5) g/dL Hct 31.3 L (36.0-46.0) % MPV 11.8 H (8.0-11.0) fL Sodium 130 L (136-145) mmol/L Creatinine 1.30 H (0.55-1.02) mg/dL Glucose 207 H (70-100) mg/dL Calcium 8.0 L (8.5-10.1) mg/dL Albumin 1.9 L (3.4-5.0) g/dL Vital Signs Temperature 37.7 C H 09/19/18 08:35 Temperature Source Tympanic 09/19/18 08:35 Pulse 95 H 09/19/18 08:35 Pulse Rhythm Regular 09/19/18 04:38 Pulse 86 09/18/18 10:00 Respiratory Rate 18 09/19/18 08:35 Respiratory Effort Non-Labored 09/19/18 04:38 Respiratory Depth Normal 09/19/18 04:38 Respiratory Pattern Normal 09/19/18 04:38 Blood Pressure 103/67 09/19/18 08:35 Blood Pressure Mean 66 09/18/18 09:06 Blood Pressure Position Right Lateral 09/18/18 03:00 Pulse Oximetry 98 09/19/18 08:35 Respiratory End-tidal CO2 29 09/16/18 21:40 Oxygen Delivery Method Room Air 09/19/18 08:35 Oxygen Flow Rate 0 09/19/18 08:35 Pain Level 4 09/19/18 09:57 Comment 09/12/18 04:00 Intake & Output 09/18/18 09/18/18 09/19/18 11:59 23:59 11:59 Intake Total 1110 / 5301.000 4191.000 / 5301.000 2134 / 2134 Output Total 525 / 5 1550 / 2075 1250 / 1250 Balance 585 / 3226.000 2641.000 / 3226.000 885 / 885 Weight 133.1 kg 128.6 kg Intake: IV 910 / 4831.000 3921.000 / 4831.000 2134 / 2134 Oral 200 / 470 270 / 470 Output: Gastric Drainage 150 / 400 250 / 400 100 / 100 Left Nare 150 / 400 250 / 400 100 / 100 Urine 225 / 1125 900 / 1125 950 / 950 Stool 150 / 550 400 / 550 200 / 200 Other: Urine Color Light Sharmaine Dark Sharmaine Straw Urine Appearance Cloudy Cloudy Clear Comment Farr in place Farr in place Gastric Occult Blood Left Nare Positive Laboratory Results WBC 7.51 k/cumm (4.4-10.8) 09/19/18 06:25 RBC 3.62 m/cumm (4.00-5.20) L 09/19/18 06:25 Hgb 10.5 g/dL (12.0-15.5) L D 09/19/18 06:25 Hct 31.3 % (36.0-46.0) L 09/19/18 06:25 MCV 86.5 fL (80-95) 09/19/18 06:25 MCH 29.0 pg (27.0-33.0) 09/19/18 06:25 MCHC 33.5 g/dL (32.0-36.0) 09/19/18 06:25 RDW 13.0 % (11.7-14.6) 09/19/18 06:25 Plt Count 137 x1000/uL (130-400) 09/19/18 06:25 MPV 11.8 fL (8.0-11.0) H 09/19/18 06:25 Immature Gran % 0.3 09/17/18 06:40 Neutrophils % 79.7 09/17/18 06:40 Lymphocytes % 8.8 09/17/18 06:40 Monocytes % 11.0 09/17/18 06:40 Eosinophils % 0.1 09/17/18 06:40 Basophils % 0.1 09/17/18 06:40 Absolute Neutrophils 10.64 k/cumm (1.2-6.7) H 09/17/18 06:40 Absolute Lymphocytes 1.17 k/cumm (1.2-3.4) L 09/17/18 06:40 Absolute Monocytes 1.47 k/cumm (0.11-0.7) H 09/17/18 06:40 Absolute Eosinophils 0.01 k/cumm (0.0-0.7) 09/17/18 06:40 Absolute Basophils 0.01 k/cumm (0.0-0.2) 09/17/18 06:40 PT 10.3 sec (9.3-11.0) 09/19/18 06:25 INR 1.0 (0.9-1.1) 09/19/18 06:25 Sodium 130 mmol/L (136-145) L 09/19/18 06:25 Potassium 4.3 mmol/L (3.5-5.1) 09/19/18 06:25 Chloride 98 mmol/L (98-107) 09/19/18 06:25 Carbon Dioxide 24.8 mmol/L (21.0-32.0) 09/19/18 06:25 Anion Gap 7.2 mmol/L (3-11) 09/19/18 06:25 BUN 25 mg/dL (7-18) H D 09/17/18 06:40 Creatinine 1.30 mg/dL (0.55-1.02) H 09/19/18 06:25 Estimated GFR/1.73 m2 43.90 (mL/min/1.73m2) 09/19/18 06:25 Glucose 207 mg/dL (70-100) H 09/19/18 06:25 Lactate 1.3 mmol/L (0.6-1.4) 09/10/18 20:42 Calcium 8.0 mg/dL (8.5-10.1) L 09/19/18 06:25 Phosphorus 2.7 mg/dL (2.6-4.7) 09/19/18 06:25 Magnesium 2.1 mg/dL (1.8-2.4) 09/19/18 06:25 Total Bilirubin 0.7 mg/dL (0.2-1.0) 09/19/18 06:25 AST 33 U/L (15-37) 09/14/18 06:30 ALT 29 U/L (12-78) 09/19/18 06:25 Alkaline Phosphatase 50 U/L (46-116) 09/19/18 06:25 Total Protein 7.1 g/dL (6.4-8.2) 09/14/18 06:30 Albumin 1.9 g/dL (3.4-5.0) L 09/19/18 06:25 Prealbumin 16 mg/dL (20-40) L 09/15/18 07:09 Objective Narrative Objective Narrative: atient Name: HIRAM CARDONA #: [id number]: MS Ordering Provider: David Lawrence M.D. : ADM IN Primary Care Provider: Danna Gonzalez Date of Exam: 09/19/18Sex: F Admission Date: 09/10/18 : 1970 Age: 48 Exam(s) a RAD:XR portable chest AP SYMPTOM/DIAGNOSIS: FEVER, HYPOTENSION PORTABLE AP CHEST: No priors. Heart size and pulmonary vasculature are within normal limits. There is a nasogastric tube with the tip seen coursing into the stomach. The distal tip is not included on the film. There is a left PICC line, the tip of the catheter appears in the region of the superior vena cava and right atrial junction. No focal consolidating infiltrates, effusions or pneumothoraxes are identified. Mild perihilar increased lung markings are present which may represent a bronchiolitis/bronchitis. IMPRESSION: 1. Findings raising the question of a bronchiolitis or bronchitis. 2. Tubes and catheters in good position. Ordered By: David Lawrence M.D. CC: Dictated By: Avelino Flood M.D. 09/19/18 0858 Transcribed By: Angeles Mojica 09/19/18 0912 This is privileged, confidential information intended only for the provider named. Any use or distribution by any person other than this provider is strictly prohibited. If you receive this report in error, please notify us immediately at [phone] and return the original report to us at the address above. Thank-you.
--- NOTE | 2018-09-19 13:47 | PDOC.CMPRO ---
- If Service Date Differs Date of service: 09/19/18 Time of Service: 13:47 Care Management Progress Note S/O: Radha is sitting up in a w/c this morning at the bedside about to get cleaned up. CM provided her with the contact information for the caser shoe parts through [facility] whom is available if Radha has any questions regarding her coverage. A: 47 y/o female admitted 09/10/18 for Diverticulitis, Fistula P:Radha will return home once medically cleared with no anticipated services. She will F/U with [facility] and plan of care as prescribed. Radha's [facility] will transport her when ready.
--- NOTE | 2018-09-19 13:57 | CMPROGNOTE_ITS ---
- If Service Date Differs Date of service: 09/19/18 Time of Service: 13:47 Care Management Progress Note S/O: Radha is sitting up in a w/c this morning at the bedside about to get cleaned up. CM provided her with the contact information for the adult protective caseworker through [facility] whom is available if Radha has any questions regarding her coverage. A: 47 y/o female admitted 09/10/18 for Diverticulitis, Fistula P:Radha will return home once medically cleared with no anticipated services. She will F/U with [facility] and plan of care as prescribed. Radha's [facility] will transport her when ready.
[2018-09-19] MEDS: ACETAMINOPHEN 1,000 MG/100 ML BTL 400 MG IVPB (15:46)
--- NOTE | 2018-09-19 16:26 | W.INDIABCONS ---
Date of service: 09/19/18 Time of Service: 16:26 Diabetes Inpatient Consult DESCRIPTION/ASSESSMENT: Appreciate diabetes consult for Dominique Parada who is hospitalzed with bowel surgery now on TPN. Blood sugars this hospitalization have been above 200 now coming down slightly taking moderate insulin correction. This is not actually correcting hyperglycemia, but taking care of the carbohydrate absorbed. Met briefly with Radha who was not feeling well. She states at home she manages her blood sugars well with Metformin and monitors fasting blood sugars in the low 100s. INTERVENTION: Suggest increasing insulin correction to resistant level, and/or adding insulin to cover carbohydrate if improved glycemic control is desired. PLAN: Will follow blood sugars. Will f/u with her prior to discharge. Time Spent in Nutritional Counseling and Treatment: 10
--- NOTE | 2018-09-19 16:33 | DM INPTCON_ITS ---
Date of service: 09/19/18 Time of Service: 16:26 Diabetes Inpatient Consult DESCRIPTION/ASSESSMENT: Appreciate diabetes consult for Dominique Parada who is hospitalzed with bowel surgery now on TPN. Blood sugars this hospitalization have been above 200 now coming down slightly taking moderate insulin correction. This is not actually correcting hyperglycemia, but taking care of the carbohydrate absorbed. Met briefly with Radha who was not feeling well. She states at home she manag es her blood sugars well with Metformin and monitors fasting blood sugars in the low 100s. INTERVENTION: Suggest increasing insulin correction to resistant level, and/or adding insulin to cover carbohydrate if improved glycemic control is desired. PLAN: Will follow blood sugars. Will f/u with her prior to discharge. Time Spent in Nutritional Counseling and Treatment: 10
[2018-09-19] MEDS: methylPREDNISolone SUCC 125 MG VIAL IVP ×2 (16:59→23:45)
--- NOTE | 2018-09-19 17:02 | PDOC.ANES ---
Date of service: 09/19/18 Time of Service: 17:03 Anesthesia Note Report Anesthesia Note: Called to evaluate patient from an epidural stand point due to increasing hives and urticaria. Epidural pump was stopped prior to arrival. Found patient in bed with hives present on all extremities and trunk. Back is significantly covered. Patient complaining of being very uncomfortable from an itching standpoint. She also stated that there is increasing itching and burning at the epidural site, but hard to distinguish between insertion site pain and sensitivity to the components of the epidural. she denies any allergy to opioids, local anesthesia, or chlorhexidine. In discussion with patient decision made to eliminate epidural as a possible source of her symptoms. Due to her daily enoxaparin dose the epidural should not be pulled for 5 more hours (last dose was ~1000 this morning). The epidural dressing was taken down (due to chlorhexidine patch), skin cleaned with sterile gauze, and plain tegaderm applied to the site. The skin around the insertion site (directly under the chlorhexidine patch) was not overly reddened. Pump will remain off. Discussed with patient that once the epidural comes out that her symptoms may not improve and that her pain my also get worse. She verbalized understanding and would like to proceed with the plan.
[2018-09-19] MEDS: HYDROmorphone 2 MG/ML VIAL 1 MG IVP ×2 (17:53→21:52)
[2018-09-19] MEDS: Pantoprazole 40 MG VIAL IVP (17:54)
[2018-09-19] MEDS: diphenhydrAMINE 50 MG/ML VIAL IVP (20:46)
[2018-09-20] VITALS (7 sets, daily range): BP systolic 117–142; BP diastolic 64–78; PULSE 83–94; RESP 17–20; TEMP 36.8–37.4; O2SAT 95–98
[2018-09-20] MEDS: diphenhydrAMINE 50 MG/ML VIAL IVP (02:18)
[2018-09-20] MEDS: HYDROmorphone 2 MG/ML VIAL 1 MG IVP ×4 (03:51→19:26)
[2018-09-20] MEDS: Insulin Aspart 300 UNITS/3 ML PEN SC ×4 (06:13→23:57)
[2018-09-20] MEDS: Normal Saline Flush 10 ML SYR IVP ×5 (06:20→18:13)
[2018-09-20] MEDS: Lactated Ringers 1,000 ML 100 ML IV (07:08)
[2018-09-20 07:44] LABS: Abs Immature Grans 0.04 k/cumm (0.0-0.09); Absolute Basophil Count 0.02 k/cumm (0.0-0.2); Absolute Eosinophil Count 0.04 k/cumm (0.0-0.7); Absolute Lymphocyte Count 0.69 k/cumm (1.2-3.4); Absolute Monocyte Count 0.52 k/cumm (0.11-0.7); Absolute Neutrophil Count 4.69 k/cumm (1.2-6.7); Basophils % 0.3; Eosinophils % 0.7; HCT 32.2 % (36.0-46.0); Immature Grans % 0.7; Lymphocytes % 11.5; Mean Corp. HGB Concentration 34.2 g/dL (32.0-36.0); Mean Corpuscular Hemoglobin 29.3 pg (27.0-33.0); Mean Corpuscular Volume 85.6 fL (80-95); Mean Platelet Volume 11.9 fL (8.0-11.0); Monocytes % 8.7; Neutrophils % 78.1; Platelet Count 145 x1000/uL (130-400); RBC 3.76 m/cumm (4.00-5.20); RBC Distribution Width 12.7 % (11.7-14.6)
[2018-09-20 07:51] LABS: Anion Gap 6.7 mmol/L (3-11); BUN 24 mg/dL (7-18); CO2 25.3 mmol/L (21.0-32.0); CREATININE 1.07 mg/dL (0.55-1.02); Calcium 8.5 mg/dL (8.5-10.1); Chloride 101 mmol/L (98-107); Estimated GFR 54.97 (mL/min/1.73m2); Magnesium 2.2 mg/dL (1.8-2.4); Potassium 4.7 mmol/L (3.5-5.1); Sodium 133 mmol/L (136-145)
[2018-09-20 08:28] LABS: Glucose 363 mg/dL (70-100)
[2018-09-20] MEDS: Enoxaparin 40 MG/0.4 ML SYR SC (08:31)
[2018-09-20] MEDS: hydrOXYzine HCL 25 MG TAB PO ×3 (08:40→21:52)
--- NOTE | 2018-09-20 10:09 | PGE_ITS ---
Date of Service Date of service: 09/20/18 Time of Service: 10:09 Assessment and Plan (1) S/P colectomy: Current visit: Yes Status: Acute POD# 4 s/p en bloc LAR with small bowel anastomoses x 2, colorectal anastomosis, and diverting loop ileostomy. Much improved. Suspect hives were a reaction to Cipro. Hives resolved after antibiotics d/c'd and steroids given. Epidural d/c'd. Pain managed on IV meds. Afebrile and WBC WNL off Cipro and Clindamycin. Creatinine WNL and diuresing. Will decrease IVF. D/c macdonald. Encourage ambulation. Start clears. (2) Malnutrition: Current visit: Yes Status: Acute Continue TPN. Rechecking prealbumin. Start clears. Qualifiers: Malnutrition type: protein-calorie malnutrition Protein-calorie malnut rition severity: mild Qualified Code(s): E44.1 - Mild protein-calorie malnutrition Subjective Interval history since last seen: Patient reports feeling much better this am. Hives have abated. Epidural has been d/c'd. Pain controlled with IV meds. Patient reports a loose BM per rectum. Mild nausea but no emesis. Labs reviewed. Afebrile overnight off antibiotics. WBC WNL. Good urine output - diuresing POD#4. Exam Const General: cooperative, comfortable, no acute distress and well developed Nutritional Appearance: obese Orientation: alert and oriented x3 [facility] Head: normocephalic and atraumatic Eyes Sclera: sclerae normal Resp Effort & Inspection: normal respiratory effort and able to speak in complete sentences Cardio Jugular venous pressure: no JVD Rate: regular rate Rhythm: regular rhythm GI Inspection: non-distended, incision (midline mario intact) and other (LUQ ileostomy - viable, functional, reinforced appliance with tape) Palpation: soft, not firm, no guarding and no masses Auscultation: normal bowel sounds Skin General skin exam: no rashes or lesions noted (skin is markedly improved, diffuse hives/itching resolved) Neuro General: alert and oriented x3 Objective Objective Clinical Data: Abnormal lab results 09/20/18 09/20/18 09/20/18 Range/Units 06:35 06:35 06:35 RBC 3.76 L (4.00-5.20) m/cumm Hgb 11.0 L (12.0-15.5) g/dL Hct 32.2 L (36.0-46.0) % MPV 11.9 H (8.0-11.0) fL Absolute Lymphocytes 0.69 L (1.2-3.4) k/cumm Sodium 133 L (136-145) mmol/L BUN 24 H (7-18) mg/dL Creatinine 1.07 H (0.55-1.02) mg/dL Glucose 363 H D (70-100) mg/dL Phosphorus 2.0 L (2.6-4.7) mg/dL Vital Signs Temperature 37.0 C 09/20/18 09:13 Temperature Source Tympanic 09/20/18 09:13 Pulse 94 H 09/20/18 09:13 Pulse Rhythm Regular 09/19/18 22:05 Pulse 86 09/18/18 10:00 Respiratory Rate 20 09/20/18 09:13 Respiratory Effort Non-Labored 09/19/18 22:05 Respiratory Depth Normal 09/19/18 22:05 Respiratory Pattern Normal 09/19/18 22:05 Blood Pressure 126/77 09/20/18 09:13 Blood Pressure Mean 66 09/18/18 09:06 Blood Pressure Position Right Lateral 09/18/18 03:00 Pulse Oximetry 97 09/20/18 09:13 Respiratory End-tidal CO2 29 09/16/18 21:40 Oxygen Delivery Method Room Air 09/20/18 09:13 Oxygen Flow Rate 0 09/20/18 09:13 Pain Level 9 09/20/18 08:32 Comment 09/12/18 04:00 Intake & Output 09/19/18 09/19/18 09/20/18 11:59 23:59 11:59 Intake Total 2455 / 4907.633 2452.633 / 4907.633 1020 / 1020 Output Total 1250 / 2150 900 / 2150 2900 / 2900 Balance 1205 / 2757.633 1552.633 / 2757.633 -1880 / -1880 Weight 128.6 kg 130.5 kg Intake: IV 2335 / 4547.633 2212.633 / 4547.633 1020 / 1020 Oral 120 / 360 240 / 360 Output: Gastric Drainage 100 / 350 250 / 350 Left Nare 100 / 350 250 / 350 Urine 950 / 1250 300 / 1250 2850 / 2850 Stool 200 / 550 350 / 550 50 / 50 Other: Urine Color Straw Light Sharmaine Yellow Urine Appearance Clear Clear Clear Laboratory Results WBC 6.00 k/cumm (4.4-10.8) 09/20/18 06:35 RBC 3.76 m/cumm (4.00-5.20) L 09/20/18 06:35 Hgb 11.0 g/dL (12.0-15.5) L 09/20/18 06:35 Hct 32.2 % (36.0-46.0) L 09/20/18 06:35 MCV 85.6 fL (80-95) 09/20/18 06:35 MCH 29.3 pg (27.0-33.0) 09/20/18 06:35 MCHC 34.2 g/dL (32.0-36.0) 09/20/18 06:35 RDW 12.7 % (11.7-14.6) 09/20/18 06:35 Plt Count 145 x1000/uL (130-400) 09/20/18 06:35 MPV 11.9 fL (8.0-11.0) H 09/20/18 06:35 Immature Gran % 0.7 09/20/18 06:35 Neutrophils % 78.1 09/20/18 06:35 Lymphocytes % 11.5 09/20/18 06:35 Monocytes % 8.7 09/20/18 06:35 Eosinophils % 0.7 09/20/18 06:35 Basophils % 0.3 09/20/18 06:35 Absolute Neutrophils 4.69 k/cumm (1.2-6.7) 09/20/18 06:35 Absolute Lymphocytes 0.69 k/cumm (1.2-3.4) L 09/20/18 06:35 Absolute Monocytes 0.52 k/cumm (0.11-0.7) 09/20/18 06:35 Absolute Eosinophils 0.04 k/cumm (0.0-0.7) 09/20/18 06:35 Absolute Basophils 0.02 k/cumm (0.0-0.2) 09/20/18 06:35 PT 10.3 sec (9.3-11.0) 09/19/18 06:25 INR 1.0 (0.9-1.1) 09/19/18 06:25 Sodium 133 mmol/L (136-145) L 09/20/18 06:35 Potassium 4.7 mmol/L (3.5-5.1) 09/20/18 06:35 Chloride 101 mmol/L (98-107) 09/20/18 06:35 Carbon Dioxide 25.3 mmol/L (21.0-32.0) 09/20/18 06:35 Anion Gap 6.7 mmol/L (3-11) 09/20/18 06:35 BUN 24 mg/dL (7-18) H 09/20/18 06:35 Creatinine 1.07 mg/dL (0.55-1.02) H 09/20/18 06:35 Estimated GFR/1.73 m2 54.97 (mL/min/1.73m2) 09/20/18 06:35 Glucose 363 mg/dL (70-100) H D 09/20/18 06:35 Lactate 1.3 mmol/L (0.6-1.4) 09/10/18 20:42 Calcium 8.5 mg/dL (8.5-10.1) 09/20/18 06:35 Phosphorus 2.0 mg/dL (2.6-4.7) L 09/20/18 06:35 Magnesium 2.2 mg/dL (1.8-2.4) 09/20/18 06:35 Total Bilirubin 0.7 mg/dL (0.2-1.0) 09/19/18 06:25 AST 33 U/L (15-37) 09/14/18 06:30 ALT 29 U/L (12-78) 09/19/18 06:25 Alkaline Phosphatase 50 U/L (46-116) 09/19/18 06:25 Total Protein 7.1 g/dL (6.4-8.2) 09/14/18 06:30 Albumin 1.9 g/dL (3.4-5.0) L 09/19/18 06:25 Prealbumin 16 mg/dL (20-40) L 09/15/18 07:09
[2018-09-20] MEDS: ACETAMINOPHEN 1,000 MG/100 ML BTL 400 MG IVPB (12:31)
[2018-09-20] MEDS: Ketorolac 30 MG/ML VIAL IVP ×2 (13:35→22:53)
--- NOTE | 2018-09-20 17:32 | PDOC.CMPRO ---
Care Management Progress Note S/O: Radha was resting in bed and appeared to be very tired. States she thinks she may go to her mother's house for a few weeks when discharged so that she can help her recover. Her mother lives in [place] and she may also want to have Home Health nurses check on her to make sure she is doing everything right. Reassured her that home care arrangements can be made for the [place] area should she decide to go to her mother's home and be in need of HH. A: 47 y/o female admitted 09/10/18 for Diverticulitis, Fistula P: Radha will need to make a decision to return home or go to her mother;s house for a few weeks. Home care services will be addressed according to her final needs and location.
--- NOTE | 2018-09-20 17:39 | CMPROGNOTE_ITS ---
Care Management Progress Note S/O: Radha was resting in bed and appeared to be very tired. States she thinks she may go to her mother's house for a few weeks when discharged so that she can help her recover. Her mother lives in [place] and she may also want to have Home Health nurses check on her to make sure she is doing everything right. Reassured her that home care arrangements can be made for the [place] area should she decide to go to her mother's home and be in need of HH. A: 47 y/o female admitted 09/10/18 for Diverticulitis, Fistula P: Radha will need to make a decision to return home or go to her mother;s house for a few weeks. Home care services will be addressed according to her final needs and location.
[2018-09-20] MEDS: Pantoprazole 40 MG VIAL IVP (18:13)
[2018-09-21] VITALS (8 sets, daily range): BP systolic 103–141; BP diastolic 57–79; PULSE 80–99; RESP 17–20; TEMP 36.3–38.6; O2SAT 93–99
[2018-09-21] MEDS: Lactated Ringers 1,000 ML 50 ML IV (00:08)
[2018-09-21] MEDS: HYDROmorphone 2 MG/ML VIAL 1 MG IVP ×4 (01:43→22:55)
[2018-09-21] MEDS: ACETAMINOPHEN 1,000 MG/100 ML BTL 400 MG IVPB ×2 (03:20→23:17)
[2018-09-21] MEDS: Ondansetron 4 MG/2 ML VIAL IVP (04:54)
[2018-09-21] MEDS: Insulin Aspart 300 UNITS/3 ML PEN SC ×4 (06:16→23:59)
[2018-09-21] MEDS: Normal Saline Flush 10 ML SYR IVP ×6 (06:30→22:57)
[2018-09-21 07:18] LABS: HCT 31.4 % (36.0-46.0); HGB 10.7 g/dL (12.0-15.5); Mean Corp. HGB Concentration 34.1 g/dL (32.0-36.0); Mean Corpuscular Hemoglobin 29.5 pg (27.0-33.0); Mean Corpuscular Volume 86.5 fL (80-95); Mean Platelet Volume 11.1 fL (8.0-11.0); Platelet Count 181 x1000/uL (130-400); RBC 3.63 m/cumm (4.00-5.20); RBC Distribution Width 13.2 % (11.7-14.6); White Blood Cell Count 6.65 k/cumm (4.4-10.8)
[2018-09-21 07:35] LABS: Anion Gap 8.9 mmol/L (3-11); BUN 27 mg/dL (7-18); CO2 25.1 mmol/L (21.0-32.0); CREATININE 1.02 mg/dL (0.55-1.02); Calcium 8.7 mg/dL (8.5-10.1); Chloride 101 mmol/L (98-107); Estimated GFR 58.09 (mL/min/1.73m2); Magnesium 2.1 mg/dL (1.8-2.4); PHOSPHORUS 3.1 mg/dL (2.6-4.7); Potassium 3.9 mmol/L (3.5-5.1); Sodium 135 mmol/L (136-145)
[2018-09-21 07:47] LABS: Glucose 190 mg/dL (70-100)
[2018-09-21] MEDS: Enoxaparin 40 MG/0.4 ML SYR SC (09:09)
[2018-09-21] MEDS: hydrOXYzine HCL 25 MG TAB PO ×2 (09:28→18:05)
[2018-09-21] MEDS: Ketorolac 30 MG/ML VIAL IVP ×2 (09:28→17:29)
--- NOTE | 2018-09-21 10:13 | W.PM.PROGNOT ---
Date of Service Date of service: 09/21/18 Time of Service: 10:14 Assessment and Plan (1) S/P colectomy: Current visit: Yes Status: Acute POD# 5 s/p en bloc LAR with small bowel anastomoses x 2, colorectal anastomosis, and diverting loop ileostomy. Much improved. Suspect hives were a reaction to Cipro. Hives resolved after antibiotics d/c'd and steroids given. Mild residual rash on legs improving. Sharp pains overnight - ? gas pains. Ileostomy is functioning well with gas and enteric output. Encouraged ambulation. Will add po pain meds. Afebrile and WBC WNL off Cipro and Clindamycin. Creatinine WNL and diuresed > 4L 09/20/18. Will d/c LR. Continue TPN. (2) Malnutrition: Current visit: Yes Status: Acute Continue TPN. Rechecking prealbumin. Continue clears as tolerated. Will hold off on advancing diet today. Qualifiers: Malnutrition type: protein-calorie malnutrition Protein-calorie malnutrition severity: mild Qualified Code(s): E44.1 - Mild protein-calorie malnutrition Subjective Interval history since last seen: Patient notes rash and itching is much better. Did receive Atarax this am. C/o sharp abdominal pains overnight. Taking clears but had some intermittent nausea. (+) voiding after macdonald d/c'd. Labs stable. Exam Const General: cooperative, comfortable, no acute distress and well developed Nutritional Appearance: obese Orientation: alert and oriented x3 [facility] Head: normocephalic and atraumatic Eyes Sclera: sclerae normal Resp Effort & Inspection: normal respiratory effort and able to speak in complete sentences Cardio Jugular venous pressure: no JVD GI Inspection: non-distended, incision (midline mario D/C/I) and other (ileostomy - viable and functional, large amount of gas in bag) Palpation: soft, not firm, no guarding, not rigid and nontender Auscultation: hypoactive bowel sounds Skin Rashes: rashes noted (mild fading rash on legs, no rash on torso/back) Objective Objective Clinical Data: Abnormal lab results 09/21/18 09/21/18 Range/Units 06:40 06:40 RBC 3.63 L (4.00-5.20) m/cumm Hgb 10.7 L (12.0-15.5) g/dL Hct 31.4 L (36.0-46.0) % MPV 11.1 H (8.0-11.0) fL Sodium 135 L (136-145) mmol/L BUN 27 H (7-18) mg/dL Glucose 190 H D (70-100) mg/dL Vital Signs Temperature 37.6 C H 09/21/18 07:20 Temperature Source Tympanic 09/21/18 07:20 Pulse 96 H 09/21/18 07:20 Pulse Rhythm Regular 09/21/18 02:14 Pulse 86 09/18/18 10:00 Respiratory Rate 20 09/21/18 07:20 Respiratory Effort Non-Labored 09/21/18 02:14 Respiratory Depth Normal 09/21/18 02:14 Respiratory Pattern Normal 09/21/18 02:14 Blood Pressure 122/79 09/21/18 07:20 Blood Pressure Mean 66 09/18/18 09:06 Blood Pressure Position Right Lateral 09/18/18 03:00 Pulse Oximetry 98 09/21/18 07:20 Respiratory End-tidal CO2 29 09/16/18 21:40 Oxygen Delivery Method Room Air 09/21/18 07:20 Oxygen Flow Rate 0 09/21/18 07:20 Pain Level 10 09/21/18 09:29 Comment 09/12/18 04:00 Intake & Output 09/20/18 09/20/18 09/21/18 11:59 23:59 11:59 Intake Total 2374.167 / 4740.334 2366.167 / 4740.334 1660.583 / 1660.583 Output Total 2900 / 4500 1600 / 4500 300 / 300 Balance -525.833 / 240.334 766.167 / 323.042 8436.583 / 1360.583 Weight 130.5 kg Intake: IV 2374.167 / 3900.334 1526.167 / 3900.334 1660.583 / 1660.583 Oral 840 / 840 Output: Urine 2850 / 4100 1250 / 4100 300 / 300 Stool 50 / 400 350 / 400 Other: Urine Color Yellow Straw Straw Urine Appearance Clear Clear Clear Urine Odor None Normal Comment Void x1 in the toilet. Voiding Methods Toilet Toilet Laboratory Results WBC 6.65 k/cumm (4.4-10.8) 09/21/18 06:40 RBC 3.63 m/cumm (4.00-5.20) L 09/21/18 06:40 Hgb 10.7 g/dL (12.0-15.5) L 09/21/18 06:40 Hct 31.4 % (36.0-46.0) L 09/21/18 06:40 MCV 86.5 fL (80-95) 09/21/18 06:40 MCH 29.5 pg (27.0-33.0) 09/21/18 06:40 MCHC 34.1 g/dL (32.0-36.0) 09/21/18 06:40 RDW 13.2 % (11.7-14.6) 09/21/18 06:40 Plt Count 181 x1000/uL (130-400) 09/21/18 06:40 MPV 11.1 fL (8.0-11.0) H 09/21/18 06:40 Immature Gran % 0.7 09/20/18 06:35 Neutrophils % 78.1 09/20/18 06:35 Lymphocytes % 11.5 09/20/18 06:35 Monocytes % 8.7 09/20/18 06:35 Eosinophils % 0.7 09/20/18 06:35 Basophils % 0.3 09/20/18 06:35 Absolute Neutrophils 4.69 k/cumm (1.2-6.7) 09/20/18 06:35 Absolute Lymphocytes 0.69 k/cumm (1.2-3.4) L 09/20/18 06:35 Absolute Monocytes 0.52 k/cumm (0.11-0.7) 09/20/18 06:35 Absolute Eosinophils 0.04 k/cumm (0.0-0.7) 09/20/18 06:35 Absolute Basophils 0.02 k/cumm (0.0-0.2) 09/20/18 06:35 PT 10.3 sec (9.3-11.0) 09/19/18 06:25 INR 1.0 (0.9-1.1) 09/19/18 06:25 Sodium 135 mmol/L (136-145) L 09/21/18 06:40 Potassium 3.9 mmol/L (3.5-5.1) 09/21/18 06:40 Chloride 101 mmol/L (98-107) 09/21/18 06:40 Carbon Dioxide 25.1 mmol/L (21.0-32.0) 09/21/18 06:40 Anion Gap 8.9 mmol/L (3-11) 09/21/18 06:40 BUN 27 mg/dL (7-18) H 09/21/18 06:40 Creatinine 1.02 mg/dL (0.55-1.02) 09/21/18 06:40 Estimated GFR/1.73 m2 58.09 (mL/min/1.73m2) 09/21/18 06:40 Glucose 190 mg/dL (70-100) H D 09/21/18 06:40 Lactate 1.3 mmol/L (0.6-1.4) 09/10/18 20:42 Calcium 8.7 mg/dL (8.5-10.1) 09/21/18 06:40 Phosphorus 3.1 mg/dL (2.6-4.7) 09/21/18 06:40 Magnesium 2.1 mg/dL (1.8-2.4) 09/21/18 06:40 Total Bilirubin 0.7 mg/dL (0.2-1.0) 09/19/18 06:25 AST 33 U/L (15-37) 09/14/18 06:30 ALT 29 U/L (12-78) 09/19/18 06:25 Alkaline Phosphatase 50 U/L (46-116) 09/19/18 06:25 Total Protein 7.1 g/dL (6.4-8.2) 09/14/18 06:30 Albumin 1.9 g/dL (3.4-5.0) L 09/19/18 06:25 Prealbumin 16 mg/dL (20-40) L 09/15/18 07:09
[2018-09-21] MEDS: oxyCODONE 5 mg/Acetaminophen 325 mg TAB 2 TAB PO ×2 (12:01→18:05)
--- NOTE | 2018-09-21 14:20 | PDOC.CMPRO ---
Care Management Progress Note S/O: Dominique was lying in bed and appeared very tired and uncomfortable. Doesn't feel like she is getting any better and is feeling a bit down. States she cannot really handle even clear liquids today. Dr. Lawrence did visit this morning and told her that she is actually improving but she doesn't feel like that today. A: 47 y/o female admitted 09/10/18 for Diverticulitis, Fistula P: Radha will need to make a decision to return home or go to her mother;s house for a few weeks. Home care services will be addressed according to her final needs and location.
[2018-09-21] MEDS: Pantoprazole 40 MG VIAL IVP (17:30)
[2018-09-22] VITALS (8 sets, daily range): BP systolic 106–125; BP diastolic 58–76; PULSE 89–103; RESP 16–20; TEMP 37.1–38.6; O2SAT 96–100
[2018-09-22] MEDS: oxyCODONE 5 mg/Acetaminophen 325 mg TAB 2 TAB PO ×4 (02:17→23:12)
--- NOTE | 2018-09-22 04:53 | NUR.NOTE ---
Nursing Note: 2350H 09/21/18 This RN was informed by JACINTA Spencer that patient's fingerstick glucose was 386. This RN gave insulin Aspart coverage per sliding scale orders according to said value at 12 units. This RN rechecked patient's fingerstick at 0417H and got a result of 168. Patient is alert and oriented drinking clear liquids with no signs of hypoglycemia noted
[2018-09-22] MEDS: Insulin Aspart 300 UNITS/3 ML PEN SC ×4 (06:03→23:54)
--- NOTE | 2018-09-22 06:07 | PDOC.CMPRO ---
Care Management Progress Note S/O: Per MD, Radha will have her diet advanced and begin ostomy care education with nursing staff. CM will continue to follow and support discharge planning coordination. Radha was unavailable to meet with CM today when attempted. A: 47 y/o female admitted 09/10/18 for Diverticulitis, Fistula P: Radha will discharge to her mother's house for a few weeks of continues recovery and support-she will likely have new orders for VNA/RN services. She will follow up with [facility] and plan of care as prescribed. Radha's [facility] will transport her when ready.
[2018-09-22] MEDS: HYDROmorphone 2 MG/ML VIAL 1 MG IVP ×4 (06:18→20:43)
[2018-09-22] MEDS: Normal Saline Flush 10 ML SYR IVP ×5 (06:19→17:52)
--- NOTE | 2018-09-22 06:58 | W.PM.PROGNOT ---
Date of Service Date of service: 09/22/18 Time of Service: 06:58 Assessment and Plan (1) S/P colectomy: Current visit: Yes Status: Acute POD #6- s/p en block resection of sigmoid colon and small bowell. 2 small bowel anastamosis and colorectal anastamosis with loop ileostomy. A\P: 1. Ostomy- will start teaching ostomy care. 2. Nutrition- advance to soft diet. Once tolerating a soft diet will start to back off on the TPN 3. Activity- continue with frequent ambulation 4. Hives- ? Cipro allergy. Continue Atarax as needed 5. Incision- remove mario day 10-14 6. frequent urination- will check a UA (2) Hospital discharge follow-up: Current visit: No Status: Acute Patient will need Home Health services for the ostomy D/C to her mothers house when she is medically stable (3) DM2 (diabetes mellitus, type 2): Current visit: No Status: Chronic Continue insulin Will stop TPN slowly once tolerating a soft diet Qualifiers: Diabetes mellitus senior living insulin use: without senior living use Diabetes mellitus complication status: without complication Diabetes mellitus complication detail: Diabetic retinopathy severity: Proliferative retinopathy type: Diabetes mellitus macular edema: Laterality: Chronic kidney disease stage: Qualified Code(s): E11.9 - Type 2 diabetes mellitus without complications (4) Essential hypertension: Current visit: No Status: Chronic Continue home medications Subjective Interval history since last seen: Radha is doing a bit better this morning. The hives are slowly going away. The Atarax has helped. She is tolerating a clear liquid diet. Yesterday she had some nausea but none later in the day and throughout the night. Not too hungry at this time. I am peeing a lot and having accidents. Pain is well controlled on po pain meds. Exam Resp Effort & Inspection: normal respiratory effort Auscultation: clear to auscultation bilaterally Cardio Rate: regular rate Rhythm: regular rhythm Heart Sounds: no gallops and no murmurs GI Inspection: non-distended, incision (c/d/i) and other (ostomy- viable and bag with air and liquid stool.) Palpation: soft and nontender Auscultation: normoactive bowel sounds Objective Objective Clinical Data: Abnormal lab results 09/21/18 09/21/18 Range/Units 06:40 06:40 RBC 3.63 L (4.00-5.20) m/cumm Hgb 10.7 L (12.0-15.5) g/dL Hct 31.4 L (36.0-46.0) % MPV 11.1 H (8.0-11.0) fL Sodium 135 L (136-145) mmol/L BUN 27 H (7-18) mg/dL Glucose 190 H D (70-100) mg/dL Vital Signs Temperature 99.3 F 09/22/18 04:52 Temperature Source Tympanic 09/22/18 04:52 Pulse 92 H 09/22/18 04:52 Pulse Rhythm Regular 09/22/18 00:34 Pulse 86 09/18/18 10:00 Respiratory Rate 18 09/22/18 04:52 Respiratory Effort Non-Labored 09/22/18 00:34 Respiratory Depth Normal 09/22/18 00:34 Respiratory Pattern Normal 09/22/18 00:34 Blood Pressure 115/71 09/22/18 04:52 Blood Pressure Mean 66 09/18/18 09:06 Blood Pressure Position Right Lateral 09/18/18 03:00 Pulse Oximetry 96 09/22/18 04:52 Respiratory End-tidal CO2 29 09/16/18 21:40 Oxygen Delivery Method Room Air 09/22/18 04:52 Oxygen Flow Rate 0 09/22/18 04:52 Pain Level 8 09/22/18 06:18 Comment 09/21/18 12:43 Intake & Output 09/21/18 09/21/18 09/22/18 11:59 23:59 11:59 Intake Total 2473.250 / 4259.250 1786 / 4259.250 1061.917 / 1061.917 Output Total 900 / 2350 1450 / 2350 400 / 400 Balance 1573.250 / 1909.250 336 / 1909.250 661.917 / 661.917 Intake: IV 2233.250 / 3514.250 1281 / 3514.250 1061.917 / 1061.917 Oral 240 / 745 505 / 745 Output: Urine 650 / 1500 850 / 1500 400 / 400 Stool 250 / 850 600 / 850 Other: Urine Color Light Sharmaine Light Sharmaine Light Sharmaine Urine Appearance Clear Clear Clear Urine Odor None None Comment Void x1 in the toilet. Void x1 in the toilet. Voiding Methods Toilet Toilet Bedside Commode Laboratory Results WBC 6.65 k/cumm (4.4-10.8) 09/21/18 06:40 RBC 3.63 m/cumm (4.00-5.20) L 09/21/18 06:40 Hgb 10.7 g/dL (12.0-15.5) L 09/21/18 06:40 Hct 31.4 % (36.0-46.0) L 09/21/18 06:40 MCV 86.5 fL (80-95) 09/21/18 06:40 MCH 29.5 pg (27.0-33.0) 09/21/18 06:40 MCHC 34.1 g/dL (32.0-36.0) 09/21/18 06:40 RDW 13.2 % (11.7-14.6) 09/21/18 06:40 Plt Count 181 x1000/uL (130-400) 09/21/18 06:40 MPV 11.1 fL (8.0-11.0) H 09/21/18 06:40 Immature Gran % 0.7 09/20/18 06:35 Neutrophils % 78.1 09/20/18 06:35 Lymphocytes % 11.5 09/20/18 06:35 Monocytes % 8.7 09/20/18 06:35 Eosinophils % 0.7 09/20/18 06:35 Basophils % 0.3 09/20/18 06:35 Absolute Neutrophils 4.69 k/cumm (1.2-6.7) 09/20/18 06:35 Absolute Lymphocytes 0.69 k/cumm (1.2-3.4) L 09/20/18 06:35 Absolute Monocytes 0.52 k/cumm (0.11-0.7) 09/20/18 06:35 Absolute Eosinophils 0.04 k/cumm (0.0-0.7) 09/20/18 06:35 Absolute Basophils 0.02 k/cumm (0.0-0.2) 09/20/18 06:35 PT 10.3 sec (9.3-11.0) 09/19/18 06:25 INR 1.0 (0.9-1.1) 09/19/18 06:25 Sodium 135 mmol/L (136-145) L 09/21/18 06:40 Potassium 3.9 mmol/L (3.5-5.1) 09/21/18 06:40 Chloride 101 mmol/L (98-107) 09/21/18 06:40 Carbon Dioxide 25.1 mmol/L (21.0-32.0) 09/21/18 06:40 Anion Gap 8.9 mmol/L (3-11) 09/21/18 06:40 BUN 27 mg/dL (7-18) H 09/21/18 06:40 Creatinine 1.02 mg/dL (0.55-1.02) 09/21/18 06:40 Estimated GFR/1.73 m2 58.09 (mL/min/1.73m2) 09/21/18 06:40 Glucose 190 mg/dL (70-100) H D 09/21/18 06:40 Lactate 1.3 mmol/L (0.6-1.4) 09/10/18 20:42 Calcium 8.7 mg/dL (8.5-10.1) 09/21/18 06:40 Phosphorus 3.1 mg/dL (2.6-4.7) 09/21/18 06:40 Magnesium 2.1 mg/dL (1.8-2.4) 09/21/18 06:40 Total Bilirubin 0.7 mg/dL (0.2-1.0) 09/19/18 06:25 AST 33 U/L (15-37) 09/14/18 06:30 ALT 29 U/L (12-78) 09/19/18 06:25 Alkaline Phosphatase 50 U/L (46-116) 09/19/18 06:25 Total Protein 7.1 g/dL (6.4-8.2) 09/14/18 06:30 Albumin 1.9 g/dL (3.4-5.0) L 09/19/18 06:25 Prealbumin 16 mg/dL (20-40) L 09/15/18 07:09
[2018-09-22 07:27] LABS: HCT 31.2 % (36.0-46.0); HGB 10.3 g/dL (12.0-15.5); Mean Corpuscular Hemoglobin 28.8 pg (27.0-33.0); Mean Corpuscular Volume 87.2 fL (80-95); Mean Platelet Volume 10.8 fL (8.0-11.0); Platelet Count 202 x1000/uL (130-400); RBC 3.58 m/cumm (4.00-5.20); RBC Distribution Width 13.2 % (11.7-14.6); White Blood Cell Count 6.96 k/cumm (4.4-10.8)
[2018-09-22 07:28] LABS: Prothrombin Time 9.9 sec (9.3-11.0)
[2018-09-22 08:04] LABS: Anion Gap 7.3 mmol/L (3-11); BUN 20 mg/dL (7-18); CO2 25.7 mmol/L (21.0-32.0); CREATININE 0.92 mg/dL (0.55-1.02); Calcium 8.5 mg/dL (8.5-10.1); Chloride 100 mmol/L (98-107); Glucose 171 mg/dL (70-100); Potassium 3.9 mmol/L (3.5-5.1); Sodium 133 mmol/L (136-145)
[2018-09-22 08:11] LABS: ALT 33 U/L (12-78); Alkaline Phosphatase 61 U/L (46-116); Bilirubin, Total 0.6 mg/dL (0.2-1.0); Calcium 8.5 mg/dL (8.5-10.1); Magnesium 1.9 mg/dL (1.8-2.4)
[2018-09-22] MEDS: Enoxaparin 40 MG/0.4 ML SYR SC (08:14)
[2018-09-22] MEDS: Lisinopril 5 MG TAB PO (08:15)
[2018-09-22] MEDS: Hydrochlorothiazide 25 MG TAB PO (08:15)
[2018-09-22] MEDS: hydrOXYzine HCL 25 MG TAB PO ×2 (08:15→23:58)
[2018-09-22] MEDS: metFORMIN 500 MG TAB 1000 MG PO ×2 (08:15→16:48)
[2018-09-22 08:17] LABS: Absolute Eosinophil Count 0.14 k/cumm (0.0-0.7); Absolute Lymphocyte Count 1.53 k/cumm (1.2-3.4)
[2018-09-22 08:18] LABS: Diff Comment Manual Differential; Polychromasia Present
[2018-09-22 08:19] LABS: Absolute Neutrophil Count 4.45 k/cumm (1.2-6.7)
[2018-09-22 09:44] LABS: Bilirubin Negative (Negative); Blood Negative (Negative); Clarity Sl Cloudy; Glucose Negative (Negative); Ketones Negative (Negative); Leukocyte Esterase Small (Negative); Nitrite Positive (Negative); Specific Gravity 1.015 (1.005-1.025); Urobilinogen 0.2 EU/dL (Up TO 0.2)
[2018-09-22 09:54] LABS: Bacteria Many HPF (Negative); C & S Indicated? Yes; Casts Negative LPF (Negative); Crystals Negative HPF (Negative); Epithelial Cells Few HPF (Negative); Mucus Negative (Negative); RBC Negative (0-2); WBC >50 HPF (0-5)
[2018-09-22 12:13] LABS: Prealbumin 6 mg/dL (20-40)
[2018-09-22 14:57] LABS: PHOSPHORUS 3.6 mg/dL (2.6-4.7)
[2018-09-22] MEDS: Pantoprazole 40 MG VIAL IVP (17:52)
[2018-09-23] MEDS: Normal Saline Flush 10 ML SYR IVP ×5 (02:14→17:04)
[2018-09-23] MEDS: HYDROmorphone 2 MG/ML VIAL 1 MG IVP ×4 (02:15→19:37)
[2018-09-23 03:39] VITALS: BP 115/70; PULSE 88; RESP 17; TEMP 37.6; O2SAT 97
[2018-09-23] MEDS: oxyCODONE 5 mg/Acetaminophen 325 mg TAB 2 TAB PO ×3 (06:24→18:03)
[2018-09-23] MEDS: Insulin Aspart 300 UNITS/3 ML PEN SC ×4 (06:24→21:06)
[2018-09-23 07:10] LABS: HCT 29.9 % (36.0-46.0); HGB 10.1 g/dL (12.0-15.5); Mean Corp. HGB Concentration 33.8 g/dL (32.0-36.0); Mean Corpuscular Hemoglobin 29.5 pg (27.0-33.0); Mean Corpuscular Volume 87.4 fL (80-95); Mean Platelet Volume 10.6 fL (8.0-11.0); Platelet Count 208 x1000/uL (130-400); RBC 3.42 m/cumm (4.00-5.20); RBC Distribution Width 13.1 % (11.7-14.6); White Blood Cell Count 7.95 k/cumm (4.4-10.8)
[2018-09-23 07:26] LABS: Anion Gap 7.3 mmol/L (3-11); BUN 15 mg/dL (7-18); CO2 28.7 mmol/L (21.0-32.0); CREATININE 0.79 mg/dL (0.55-1.02); Calcium 8.4 mg/dL (8.5-10.1); Chloride 97 mmol/L (98-107); Glucose 151 mg/dL (70-100); Magnesium 1.9 mg/dL (1.8-2.4); PHOSPHORUS 3.9 mg/dL (2.6-4.7); Potassium 3.7 mmol/L (3.5-5.1); Sodium 133 mmol/L (136-145)
[2018-09-23 07:30] VITALS: BP 108/65; PULSE 67; RESP 18; TEMP 37.7; O2SAT 98
[2018-09-23] MEDS: Enoxaparin 40 MG/0.4 ML SYR SC (08:54)
[2018-09-23] MEDS: Lisinopril 5 MG TAB PO (08:54)
[2018-09-23] MEDS: Hydrochlorothiazide 25 MG TAB PO (08:54)
[2018-09-23] MEDS: metFORMIN 500 MG TAB 1000 MG PO ×2 (08:54→17:04)
--- NOTE | 2018-09-23 09:47 | PDOC.CMPRO ---
- If Service Date Differs Date of service: 09/23/18 Time of Service: 09:47 Care Management Progress Note S/O: Radha remains on TPN she states her pain is being managed. She plans to discharge to her Mom's in [place], [place] when she is medically ready. VNA orders will need to be sent to [facility] contact number is [phone] and fax number is [phone]. CM contacted intake by phone and faxed referral with demographics to the agency. Radha will need a face to face for new home health nursing. Demographics to be used [address] [place] [address]. A: 47 y/o female admitted 09/10/18 for Diverticulitis, Fistula P: Radha will discharge to her mother's house in [place] for a few weeks of continues recovery and support. She will need a face to face for new orders for VNA/RN services through [facility] [place]. She will follow up with [facility] and plan of care as prescribed. Radha's [facility] will transport her when ready.
--- NOTE | 2018-09-23 10:53 | PGE_ITS ---
Date of Service Date of service: 09/23/18 Time of Service: 08:00 Assessment and Plan (1) S/P colectomy: Current visit: Yes Status: Acute S/P colectomy: POD #7- s/p en block resection of sigmoid colon and small bowell. 2 small bowel anastamosis and colorectal anastamosis with loop ileostomy. A\P: 1. Ostomy- will start teaching ostomy care. 2. Nutrition- advance to soft diet. Tolerated Dinner and Breakfast well. Reduced TPN rate to 40ml/hr and will stop after 4 hours. 3. Activity- continue with frequent ambulation 4. Hives- ? Cipro allergy. Continue Atarax as needed 5. Incision- remove mario day 10-14 6. frequent urination- will check a UA (2) Hospital discharge follow-up: Current visit: No Status: Acute (3) DM2 (diabetes mellitus, type 2): Current visit: No Status: Chronic Continue Insulin Will stop TPN slowly once tolerating a soft diet Qualifiers: Chronic kidney disease stage: Diabetes mellitus complication detail: Diabetes mellitus complication status: without complication Diabetes mellitus fdc insulin use: without fdc use Diabetes mellitus macular edema: Diabetic retinopathy severity: Laterality: Proliferative retinopathy type: Qualified Code(s): E11.9 - Type 2 diabetes mellitus without complications (4) Essential hypertension: Current visit: No Status: Chronic Continue home medications. Subjective Patient reports: no new complaints Interval history since last seen: The patient reports that she is feeling pretty good this morning. She reports mild abdominal pain along her midline incision. She denies flatus or BMs. She has noted her stomach grumbling over night and this morning. She denies nausea, vomiting, or fevers. Exam Const General: cooperative, healthy appearing and comfortable Orientation: alert and oriented x3 Resp Effort & Inspection: normal respiratory effort, no audible wheezes and no cough GI Inspection: normal to inspection, no edema, non-distended and incision ([place] in place along midline incision. Mild erythema along the incision) Objective Objective Clinical Data: Abnormal lab results 09/19/18 09/23/18 09/23/18 Range/Units 06:25 06:20 06:20 RBC 3.42 L (4.00-5.20) m/cumm Hgb 10.1 L (12.0-15.5) g/dL Hct 29.9 L (36.0-46.0) % Sodium 133 L (136-145) mmol/L Chloride 97 L (98-107) mmol/L Glucose 151 H (70-100) mg/dL Calcium 8.4 L (8.5-10.1) mg/dL Prealbumin 6 L (20-40) mg/dL Vital Signs Temperature 37.7 C H 09/23/18 07:30 Temperature Source Tympanic 09/23/18 07:30 Pulse 67 09/23/18 07:30 Pulse Rhythm Regular 09/23/18 09:39 Pulse 86 09/18/18 10:00 Respiratory Rate 18 09/23/18 07:30 Respiratory Effort Non-Labored 09/23/18 09:39 Respiratory Depth Normal 09/23/18 09:39 Respiratory Pattern Normal 09/23/18 09:39 Blood Pressure 108/65 09/23/18 07:30 Blood Pressure Mean 66 09/18/18 09:06 Blood Pressure Position Right Lateral 09/18/18 03:00 Pulse Oximetry 98 09/23/18 07:30 Respiratory End-tidal CO2 29 09/16/18 21:40 Oxygen Delivery Method Room Air 09/23/18 07:30 Oxygen Flow Rate 0 09/23/18 07:30 Pain Level 9 09/23/18 08:51 Comment 09/21/18 12:43 Intake & Output 09/22/18 09/22/18 09/23/18 11:59 23:59 11:59 Intake Total 1061.917 / 3966.917 2905 / 3966.917 400 / 400 Output Total 1300 / 3200 1900 / 3200 650 / 650 Balance -238.083 / 616.816 3698 / 766.917 -250 / -250 Weight 133.6 kg 133.4 kg Intake: IV 1061.917 / 3366.917 2305 / 3366.917 30 / 30 Oral 600 / 600 370 / 370 Output: Urine 1100 / 2600 1500 / 2600 500 / 500 Stool 200 / 600 400 / 600 150 / 150 Other: Urine Color Yellow Yellow Yellow Urine Appearance Clear Clear Clear Urine Odor None Normal Voiding Methods Toilet Toilet Toilet Laboratory Results WBC 7.95 k/cumm (4.4-10.8) 09/23/18 06:20 RBC 3.42 m/cumm (4.00-5.20) L 09/23/18 06:20 Hgb 10.1 g/dL (12.0-15.5) L 09/23/18 06:20 Hct 29.9 % (36.0-46.0) L 09/23/18 06:20 MCV 87.4 fL (80-95) 09/23/18 06:20 MCH 29.5 pg (27.0-33.0) 09/23/18 06:20 MCHC 33.8 g/dL (32.0-36.0) 09/23/18 06:20 RDW 13.1 % (11.7-14.6) 09/23/18 06:20 Plt Count 208 x1000/uL (130-400) 09/23/18 06:20 MPV 10.6 fL (8.0-11.0) 09/23/18 06:20 Immature Gran % See Differential 09/22/18 06:40 Neutrophils % 60.0 09/22/18 06:40 Band Neutrophils % 4.0 % 09/22/18 06:40 Lymphocytes % 17.0 09/22/18 06:40 Atypical Lymphs % 5.0 09/22/18 06:40 Monocytes % 10.0 09/22/18 06:40 Eosinophils % 2.0 09/22/18 06:40 Basophils % 0.0 09/22/18 06:40 Absolute Neutrophils 4.45 k/cumm (1.2-6.7) 09/22/18 06:40 Absolute Lymphocytes 1.53 k/cumm (1.2-3.4) 09/22/18 06:40 Absolute Monocytes 0.70 k/cumm (0.11-0.7) 09/22/18 06:40 Absolute Eosinophils 0.14 k/cumm (0.0-0.7) 09/22/18 06:40 Absolute Basophils 0.00 k/cumm (0.0-0.2) 09/22/18 06:40 Metamyelocytes 2.0 % 09/22/18 06:40 Differential Comment Manual differential 09/22/18 06:40 RBC Morphology See below 09/22/18 06:40 Polychromasia Present 09/22/18 06:40 PT 9.9 sec (9.3-11.0) 09/22/18 06:40 INR 1.0 (0.9-1.1) 09/22/18 06:40 Sodium 133 mmol/L (136-145) L 09/23/18 06:20 Potassium 3.7 mmol/L (3.5-5.1) 09/23/18 06:20 Chloride 97 mmol/L (98-107) L 09/23/18 06:20 Carbon Dioxide 28.7 mmol/L (21.0-32.0) 09/23/18 06:20 Anion Gap 7.3 mmol/L (3-11) 09/23/18 06:20 BUN 15 mg/dL (7-18) 09/23/18 06:20 Creatinine 0.79 mg/dL (0.55-1.02) 09/23/18 06:20 Estimated GFR/1.73 m2 >= 60.00 (mL/min/1.73m2) 09/23/18 06:20 Glucose 151 mg/dL (70-100) H 09/23/18 06:20 Lactate 1.3 mmol/L (0.6-1.4) 09/10/18 20:42 Calcium 8.4 mg/dL (8.5-10.1) L 09/23/18 06:20 Phosphorus 3.9 mg/dL (2.6-4.7) 09/23/18 06:20 Magnesium 1.9 mg/dL (1.8-2.4) 09/23/18 06:20 Total Bilirubin 0.6 mg/dL (0.2-1.0) 09/22/18 06:40 AST 33 U/L (15-37) 09/14/18 06:30 ALT 33 U/L (12-78) 09/22/18 06:40 Alkaline Phosphatase 61 U/L (46-116) 09/22/18 06:40 Total Protein 7.1 g/dL (6.4-8.2) 09/14/18 06:30 Albumin 1.9 g/dL (3.4-5.0) L 09/19/18 06:25 Prealbumin 6 mg/dL (20-40) L 09/19/18 06:25 Urine Color Yellow (Yellow) 09/22/18 09:30 Urine Clarity Sl cloudy 09/22/18 09:30 Urine pH 6.0 (5-8) 09/22/18 09:30 Ur Specific [place] 1.015 (1.005-1.025) 09/22/18 09:30 Urine Protein Negative mg/dL (Negative) 09/22/18 09:30 Urine Ketones Negative mg/dL (Negative) 09/22/18 09:30 Urine Blood Negative (Negative) 09/22/18 09:30 Urine Nitrite Positive (Negative) H 09/22/18 09:30 Urine Bilirubin Negative (Negative) 09/22/18 09:30 Urine Urobilinogen 0.2 EU/dL (Up TO 0.2) 09/22/18 09:30 Ur Leukocyte Esterase Small (Negative) H 09/22/18 09:30 Urine RBC Negative (0-2) 09/22/18 09:30 Urine WBC >50 HPF (0-5) 09/22/18 09:30 Ur Epithelial Cells Few HPF (Negative) 09/22/18 09:30 Urine Crystals Negative HPF (Negative) 09/22/18 09:30 Urine Bacteria Many HPF (Negative) 09/22/18 09:30 Urine Casts Negative LPF (Negative) 09/22/18 09:30 Urine Mucus Negative (Negative) 09/22/18 09:30 Ur Culture Indicated? Yes 09/22/18 09:30 Urine Glucose Negative mg/dL (Negative) 09/22/18 09:30
[2018-09-23 11:32] LABS: Prealbumin 8 mg/dL (20-40)
[2018-09-23 11:57] VITALS: BP 113/69; PULSE 96; RESP 17; TEMP 37.9; O2SAT 99
[2018-09-23 15:30] VITALS: BP 109/49; PULSE 67; RESP 18; TEMP 38; O2SAT 97
[2018-09-23] MEDS: hydrOXYzine HCL 25 MG TAB PO (15:48)
[2018-09-23] MEDS: Pantoprazole 40 MG VIAL IVP (17:04)
[2018-09-23 19:30] VITALS: BP 145/64; PULSE 98; RESP 17; TEMP 37.3; O2SAT 98
[2018-09-23] MEDS: Normal Saline Flush 10 ML SYR 20 ML IVP (19:37)
[2018-09-23] MEDS: Acetaminophen 325 MG TAB PO (23:01)
[2018-09-23 23:30] VITALS: BP 115/62; PULSE 65; RESP 18; TEMP 38; O2SAT 99
[2018-09-24] MEDS: oxyCODONE 5 mg/Acetaminophen 325 mg TAB 2 TAB PO ×4 (00:02→18:34)
[2018-09-24] MEDS: Normal Saline Flush 10 ML SYR IVP ×3 (02:46→18:33)
[2018-09-24 04:39] VITALS: BP 112/65; PULSE 91; RESP 16; TEMP 36.9; O2SAT 99
--- NOTE | 2018-09-24 07:30 | PGE_ITS ---
Date of Service Date of service: 09/24/18 Time of Service: 07:25 Assessment and Plan (1) S/P colectomy: Current visit: Yes Status: Acute POD #8- s/p en block resection of sigmoid colon and small bowell. 2 small bowel anastamosis and colorectal anastamosis with loop ileostomy. A\P: 1. Ostomy- Continue with teaching ostomy care. 2. Nutrition- advance to soft diet. Tolerating soft diet. TPN has been discontinued. 3. Activity- continue with frequent ambulation 4. Hives- ? Cipro allergy. Continue Atarax as needed 5. Incision- remove mario day 10-14 6. frequent urination- UA culture (+) for E. Coli will start bactrim (2) Hospital discharge follow-up: Current visit: No Status: Acute Will be going home with her mother to [place], [place]. (3) DM2 (diabetes mellitus, type 2): Current visit: No Status: Chronic Continue use of Insulin Qualifiers: Diabetes mellitus nursing home insulin use: without terminal system operator use Diabetes mellitus complication status: without complication Diabetes mellitus complication detail: Diabetic retinopathy severity: Proliferative retinopathy type: Diabetes mellitus macular edema: Laterality: Chronic kidney disease stage: Qualified Code(s): E11.9 - Type 2 diabetes mellitus without complications (4) Essential hypertension: Current visit: No Status: Chronic Continue home meds. Subjective Interval history since last seen: Patient reports she tolerated her soft diet well over night. With eating she does report some mild, right sided cramping. That subsides once she stops eating. She denies nausea and vomiting. Afebrile. Urinary frequency has improved. She does express concern regarding her incision site. She has had some drainage, which increases with standing. Exam Const General: cooperative, healthy appearing and comfortable Orientation: alert and oriented x3 Resp Effort & Inspection: normal respiratory effort and no cough GI Inspection: normal to inspection, non-distended and incision Palpation: soft, not firm and no guarding Other: Midline abdominal incision- serous drainage on bandage, mild erythema along the edges of the incision which have reseeded from the outline dunn made yesterday by nsg. no induration around these area's noted on exam. Objective Objective Clinical Data: Abnormal lab results 09/22/18 09/23/18 Range/Units 06:40 06:20 Sodium 133 L (136-145) mmol/L Chloride 97 L (98-107) mmol/L Glucose 151 H (70-100) mg/dL Calcium 8.4 L (8.5-10.1) mg/dL Prealbumin 8 L (20-40) mg/dL Vital Signs Temperature 36.9 C 09/24/18 04:39 Temperature Source Tympanic 09/24/18 04:39 Pulse 91 H 09/24/18 04:39 Pulse Rhythm Regular 09/23/18 19:30 Pulse 86 09/18/18 10:00 Respiratory Rate 16 09/24/18 04:39 Respiratory Effort Non-Labored 09/23/18 19:30 Respiratory Depth Normal 09/23/18 19:30 Respiratory Pattern Normal 09/23/18 19:30 Blood Pressure 112/65 09/24/18 04:39 Blood Pressure Mean 66 09/18/18 09:06 Blood Pressure Position Right Lateral 09/18/18 03:00 Pulse Oximetry 99 09/24/18 04:39 Respiratory End-tidal CO2 29 09/16/18 21:40 Oxygen Delivery Method Room Air 09/24/18 04:39 Oxygen Flow Rate 0 09/24/18 04:39 Pain Level 8 09/23/18 18:03 Comment 09/21/18 12:43 Intake & Output 09/23/18 09/23/18 09/24/18 11:59 23:59 11:59 Intake Total 400 / 2585.667 2185.667 / 2585.667 240 / 240 Output Total 650 / 2350 1700 / 2350 100 / 100 Balance -250 / 235.667 485.667 / 235.667 140 / 140 Weight 133.4 kg Intake: IV 30 / 2936.386 1237.667 / 1495.667 Oral 370 / 1090 720 / 1090 240 / 240 Output: Urine 500 / 900 400 / 900 Stool 150 / 1450 1300 / 1450 100 / 100 Other: Urine Color Yellow Yellow Urine Appearance Clear Clear Comment pt gets up AD DAMASO to void. Voiding Methods Toilet Toilet Laboratory Results WBC 7.95 k/cumm (4.4-10.8) 09/23/18 06:20 RBC 3.42 m/cumm (4.00-5.20) L 09/23/18 06:20 Hgb 10.1 g/dL (12.0-15.5) L 09/23/18 06:20 Hct 29.9 % (36.0-46.0) L 09/23/18 06:20 MCV 87.4 fL (80-95) 09/23/18 06:20 MCH 29.5 pg (27.0-33.0) 09/23/18 06:20 MCHC 33.8 g/dL (32.0-36.0) 09/23/18 06:20 RDW 13.1 % (11.7-14.6) 09/23/18 06:20 Plt Count 208 x1000/uL (130-400) 09/23/18 06:20 MPV 10.6 fL (8.0-11.0) 09/23/18 06:20 Immature Gran % See Differential 09/22/18 06:40 Neutrophils % 60.0 09/22/18 06:40 Band Neutrophils % 4.0 % 09/22/18 06:40 Lymphocytes % 17.0 09/22/18 06:40 Atypical Lymphs % 5.0 09/22/18 06:40 Monocytes % 10.0 09/22/18 06:40 Eosinophils % 2.0 09/22/18 06:40 Basophils % 0.0 09/22/18 06:40 Absolute Neutrophils 4.45 k/cumm (1.2-6.7) 09/22/18 06:40 Absolute Lymphocytes 1.53 k/cumm (1.2-3.4) 09/22/18 06:40 Absolute Monocytes 0.70 k/cumm (0.11-0.7) 09/22/18 06:40 Absolute Eosinophils 0.14 k/cumm (0.0-0.7) 09/22/18 06:40 Absolute Basophils 0.00 k/cumm (0.0-0.2) 09/22/18 06:40 Metamyelocytes 2.0 % 09/22/18 06:40 Differential Comment Manual differential 09/22/18 06:40 RBC Morphology See below 09/22/18 06:40 Polychromasia Present 09/22/18 06:40 PT 9.9 sec (9.3-11.0) 09/22/18 06:40 INR 1.0 (0.9-1.1) 09/22/18 06:40 Sodium 133 mmol/L (136-145) L 09/23/18 06:20 Potassium 3.7 mmol/L (3.5-5.1) 09/23/18 06:20 Chloride 97 mmol/L (98-107) L 09/23/18 06:20 Carbon Dioxide 28.7 mmol/L (21.0-32.0) 09/23/18 06:20 Anion Gap 7.3 mmol/L (3-11) 09/23/18 06:20 BUN 15 mg/dL (7-18) 09/23/18 06:20 Creatinine 0.79 mg/dL (0.55-1.02) 09/23/18 06:20 Estimated GFR/1.73 m2 >= 60.00 (mL/min/1.73m2) 09/23/18 06:20 Glucose 151 mg/dL (70-100) H 09/23/18 06:20 Lactate 1.3 mmol/L (0.6-1.4) 09/10/18 20:42 Calcium 8.4 mg/dL (8.5-10.1) L 09/23/18 06:20 Phosphorus 3.9 mg/dL (2.6-4.7) 09/23/18 06:20 Magnesium 1.9 mg/dL (1.8-2.4) 09/23/18 06:20 Total Bilirubin 0.6 mg/dL (0.2-1.0) 09/22/18 06:40 AST 33 U/L (15-37) 09/14/18 06:30 ALT 33 U/L (12-78) 09/22/18 06:40 Alkaline Phosphatase 61 U/L (46-116) 09/22/18 06:40 Total Protein 7.1 g/dL (6.4-8.2) 09/14/18 06:30 Albumin 1.9 g/dL (3.4-5.0) L 09/19/18 06:25 Prealbumin 8 mg/dL (20-40) L 09/22/18 06:40 Urine Color Yellow (Yellow) 09/22/18 09:30 Urine Clarity Sl cloudy 09/22/18 09:30 Urine pH 6.0 (5-8) 09/22/18 09:30 Ur Specific [place] 1.015 (1.005-1.025) 09/22/18 09:30 Urine Protein Negative mg/dL (Negative) 09/22/18 09:30 Urine Ketones Negative mg/dL (Negative) 09/22/18 09:30 Urine Blood Negative (Negative) 09/22/18 09:30 Urine Nitrite Positive (Negative) H 09/22/18 09:30 Urine Bilirubin Negative (Negative) 09/22/18 09:30 Urine Urobilinogen 0.2 EU/dL (Up TO 0.2) 09/22/18 09:30 Ur Leukocyte Esterase Small (Negative) H 09/22/18 09:30 Urine RBC Negative (0-2) 09/22/18 09:30 Urine WBC >50 HPF (0-5) 09/22/18 09:30 Ur Epithelial Cells Few HPF (Negative) 09/22/18 09:30 Urine Crystals Negative HPF (Negative) 09/22/18 09:30 Urine Bacteria Many HPF (Negative) 09/22/18 09:30 Urine Casts Negative LPF (Negative) 09/22/18 09:30 Urine Mucus Negative (Negative) 09/22/18 09:30 Ur Culture Indicated? Yes 09/22/18 09:30 Urine Glucose Negative mg/dL (Negative) 09/22/18 09:30
[2018-09-24 07:40] VITALS: BP 112/73; PULSE 94; RESP 18; TEMP 37.5; O2SAT 97
[2018-09-24] MEDS: Lisinopril 5 MG TAB PO (08:32)
[2018-09-24] MEDS: Hydrochlorothiazide 25 MG TAB PO (08:32)
[2018-09-24] MEDS: metFORMIN 500 MG TAB 1000 MG PO ×2 (08:32→16:53)
[2018-09-24] MEDS: Normal Saline Flush 10 ML SYR 20 ML IVP ×2 (08:32→20:29)
[2018-09-24] MEDS: Enoxaparin 40 MG/0.4 ML SYR SC (08:33)
[2018-09-24] MEDS: Ketorolac 30 MG/ML VIAL IVP (10:56)
[2018-09-24] MEDS: Sulfameth/Trimeth DS TAB 1 TAB PO ×2 (11:28→20:28)
[2018-09-24 12:03] VITALS: BP 121/70; PULSE 95; RESP 20; TEMP 37.9; O2SAT 96
--- NOTE | 2018-09-24 14:34 | HHF2F_ITS ---
1. Encounter Date and Reason I certify that HIRAM CARDONA was seen by Ayala Mittal MD on 09/24/18 and that I had a [id number] encounter with this patient that meets the physician face to face encounter requirements. 2. Clinical Findings Supporting Skilled Need and Homebound Status I certify that home health services are medically necessary, include either intermittent detention and/or physical/speech therapy, and that this patient is homebound in that absences from the home require considerable and taxing effort and are infrequent or of short duration, or are attributable to the need to receive medical care. [X] (a) Attached documentation from encounter provides clinical findings supporting skilled need and homebound status (including what assistance patient requires to leave the home). The encounter with the patient was in whole, or in part, for the following medical condition, which is the primary reason for home health care: s/p colectomy and loop ileostomy. New ostomy patient Custodial: ostomy care Physical Therapy: Speech Therapy: Homebound: I certify that patient is homebound except for short trips to Dr. Stephenson. 3. Certification and Authentication I certify that I composed the above information based on my clinical judgement relating to this patient's medical condition and, if applicable, clinical findings communicated to me by the NPP or inpatient physician who performed the Home Health Referral. All further orders will be obtained through (Community Based Physician - PCP)
--- NOTE | 2018-09-24 14:55 | PDOC.CMPRO ---
- If Service Date Differs Date of service: 09/24/18 Time of Service: 14:56 Care Management Progress Note S/O: Radha plans on discharging home on with her Mom. Her family will pick her up via private car. Dominique is now off TPN and feels that she is ready to return home. She reports she has not been able to sleep well while in the hospital. Dominique has started her ostomy learning while inpatient and she will continue learning with the VNA. CM contacted [facility] and sent demographics and face to face. Dominique's temporary address will be [address] [place] [address] Discharge summary, orders and med rec will need to be faxed to [facility] contact number is [phone] and fax number is [phone]. A: 47 y/o female admitted 09/10/18 for Diverticulitis, Fistula P: Radha will discharge to her mother's house in [place] for a few weeks of continues recovery and support. She will have new VNA/RN services through [facility]. She will follow up with [facility] and plan of care as prescribed. Radha's [facility] will transport her when ready.
--- NOTE | 2018-09-24 15:10 | CMPROGNOTE_ITS ---
- If Service Date Differs Date of service: 09/24/18 Time of Service: 14:56 Care Management Progress Note S/O: Radha plans on discharging home on with her Mom. Her family will pick her up via private car. Dominique is now off TPN and feels that she is ready to return home. She reports she has not been able to sleep well while in the hospital. Dominique has started her ostomy learning while inpatient and she will continue learning with the VNA. CM contacted [facility] and sent demographics and face to face. Dominique's temporary address will be [address] [place] [address] Discharge summary, orders and med rec will need to be faxed to [facility] contact number is [phone] and fax number is [phone]. A: 47 y/o female admitted 09/10/18 for Diverticulitis, Fistula P: Radha will discharge to her mother's house in [place] for a few weeks of continues recovery and support. She will have new VNA/RN services through [facility]. She will follow up with [facility] and plan of care as prescribed. Radha's [facility] will transport her when ready.
[2018-09-24 16:35] VITALS: BP 116/70; PULSE 94; RESP 20; TEMP 37.9; O2SAT 97
[2018-09-24] MEDS: Pantoprazole 40 MG VIAL IVP (18:33)
[2018-09-24 19:39] VITALS: BP 102/67; PULSE 99; RESP 18; TEMP 38.5; O2SAT 97
[2018-09-25 00:23] VITALS: BP 129/79; PULSE 97; RESP 16; TEMP 38.2; O2SAT 97
[2018-09-25] MEDS: oxyCODONE 5 mg/Acetaminophen 325 mg TAB 2 TAB PO ×2 (00:42→07:13)
[2018-09-25] MEDS: Acetaminophen 325 MG TAB PO ×2 (00:43→10:43)
[2018-09-25 04:20] VITALS: BP 111/66; PULSE 84; RESP 20; TEMP 36.4; O2SAT 96
[2018-09-25] MEDS: Lisinopril 5 MG TAB PO (07:50)
[2018-09-25] MEDS: Ketorolac 30 MG/ML VIAL IVP (07:50)
[2018-09-25] MEDS: metFORMIN 500 MG TAB 1000 MG PO (07:50)
[2018-09-25] MEDS: Enoxaparin 40 MG/0.4 ML SYR SC (07:50)
[2018-09-25] MEDS: Sulfameth/Trimeth DS TAB 1 TAB PO (07:51)
[2018-09-25] MEDS: Normal Saline Flush 10 ML SYR 20 ML IVP (07:51)
[2018-09-25] MEDS: Hydrochlorothiazide 25 MG TAB PO (07:51)
[2018-09-25 07:58] VITALS: BP 124/78; PULSE 74; RESP 18; TEMP 36.8; O2SAT 98
--- NOTE | 2018-09-25 08:24 | W.PM.DS.N ---
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 Patient also had electrolyte abnormalities and dehydration. Patient had thorough preoperative workup with electrolyte replacement fluid resuscitation and bowel cleansing prior to surgery. Patient was brought to the OR after all that was accomplished and patient had a large matted area of small bowel visualized to the sigmoid colon. Patient had an en bloc resection of the small bowel as well as colon patient had 2 small bowel anastomosis as well as a colonic anastomosis with a small leak requiring suture repair she was given a diverting ileostomy for protection of that repair. Patient postoperatively did well with no issues she continued on TPN until 2 days prior to her discharge. Patient tolerated diet and was having minimal discharge from her rectum with ostomy functioning properly. Patient was instructed to follow-up in the office in 1-2 weeks. Pathology was reviewed and no new findings were discovered in this report. Home Meds and New Rx's Prescriptions: No Action hydrochlorothiazide 25 mg tablet 25 mg PO DAILY RF: 0 bisacodyl [Dulcolax (bisacodyl)] 5 mg tablet,delayed release (DR/EC) 5 mg PO ONCE Qty: 4 RF: 0 polyethylene glycol 3350 17 gram/dose powder 255 g PO ONCE Qty: 255 RF: 0 metformin 1,000 mg Tablet 1,000 mg PO BID RF: 0 lisinopril 5 mg Tablet 5 mg PO DAILY RF: 0 promethazine 12.5 mg tablet 12.5 mg PO Q6H PRN (Reason: nausea and vomiting) Qty: 20 RF: 0 acetaminophen [Tylenol Extra Strength] 500 mg tablet 500 mg PO QID PRN (Reason: fever or pain) Qty: 10 RF: 0 ibuprofen 600 mg tablet 600 mg PO QID PRN (Reason: fever or pain) Qty: 10 RF: 0 Discharge Instructions Referrals: Ever LION,Maynor Pina DO [OSTEOPATHIC DOCTOR] - Activity:: Activity as Tolerated Equipment/Supplies:: No Equipment Needed Diet:: As Tolerated Discharge Orders Discharge Orders: Discharge Order (Routine); Ordered 09/25/18 Ordered By: Maynor Curtis III Exam GI Inspection: normal to inspection Percussion: normal to percussion Auscultation: normal bowel sounds Abdomen image: 1. crampy pain 2. ostomy discomfort DS: Data Vitals/I&O Vitals and I&O: Vital Signs Temperature 36.8 C 09/25/18 07:58 Temperature Source Tympanic 09/25/18 07:58 Pulse 74 09/25/18 07:58 Pulse Rhythm Regular 09/24/18 22:44 Pulse 86 09/18/18 10:00 Respiratory Rate 18 09/25/18 07:58 Respiratory Effort Non-Labored 09/24/18 22:44 Respiratory Depth Normal 09/24/18 22:44 Respiratory Pattern Normal 09/24/18 22:44 Blood Pressure 124/78 09/25/18 07:58 Blood Pressure Mean 66 09/18/18 09:06 Blood Pressure Position Right Lateral 09/18/18 03:00 Pulse Oximetry 98 09/25/18 07:58 Respiratory End-tidal CO2 29 09/16/18 21:40 Oxygen Delivery Method Room Air 09/25/18 07:58 Oxygen Flow Rate 0 09/25/18 07:58 Pain Level 6 09/25/18 07:58 Comment 09/21/18 12:43 Intake & Output 09/24/18 09/24/18 09/25/18 11:59 23:59 11:59 Intake Total 340 / 630 290 / 630 Output Total 1954 525 / 525 Balance 185 / -1325 -1510 / -1325 -525 / -525 Weight 131.7 kg 129.4 kg Intake: IV 40 / 90 50 / 90 Oral 300 / 540 240 / 540 Output: Stool 1954 525 / 525 Other: Urine Appearance Clear Comment Pt voiding in toilet independently. Voiding Methods Toilet Toilet Labs on day of discharge: Preliminary micro results at discharge 09/22/18 09:30 Urine Culture - Preliminary Urine - Reflex from Ua Escherichia coli [facility] Medical History DM2 (diabetes mellitus, type 2) (Chronic) Essential hypertension (Chronic) Morbid obesity (Chronic) Surgical History S/P colectomy (Acute 09/16/18) History of bilateral oophorectomies (Resolved) History of cholecystectomy (Resolved) History of ureter repair (Resolved) Status post complete hysterectomy (Resolved) Family History Father CAD (coronary artery disease) AMI (acute myocardial infarction) Maternal Aunt Breast cancer Social History Smoking/Tobacco Use Status: Current every day
[2018-09-25] MEDS: Bacitracin 1 PACKET (09:09)
--- NOTE | 2018-09-25 14:59 | PDOC.CMDIS ---
- If Service Date Differs Date of service: 09/25/18 Time of Service: 14:59 LACE Index Scoring Tool - Questions: Length of Stay (in days): 14 or more Acuity (Admit via E.D.?): No Comorbidities: Diabetes w/o Complication E.D. Visits: 0 - Answers: Total Score: 8 Risk of Readmission: Low Risk Care Management Discharge Reason for Hospitalization: Diverticulitis, Abdominal pain Discharge Plan: Radha will DC to her mom's home this afternoon with new home health RN services for wound management. Radha's family to transport. Radha will F/U with [facility] and plan of care as prescribed. Patient/Family Education Needs: Review DC instructions, any limitations, and discuss 'Ask Me Three' Services Needed at Discharge: Home Health Care Services (RN)
--- NOTE | 2018-09-25 15:03 | CMDISCH_ITS ---
- If Service Date Differs Date of service: 09/25/18 Time of Service: 14:59 LACE Index Scoring Tool - Questions: Length of Stay (in days): 14 or more Acuity (Admit via E.D.?): No Comorbidities: Diabetes w/o Complication E.D. Visits: 0 - Answers: Total Score: 8 Risk of Readmission: Low Risk Care Management Discharge Reason for Hospitalization: Diverticulitis, Abdominal pain Discharge Plan: Radha will DC to her mom's home this afternoon with new home health RN services for wound management. Radha's family to transport. Radha will F/U with [facility] and plan of care as prescribed. Patient/Family Education Needs: Review DC instructions, any limitations, and discuss 'Ask Me Three' Services Needed at Discharge: Home Health Care Services (RN)
== END 2018-09-25 10:58 | disposition home or self-care (01) | DRG 330 ==
LOC: MS 09-15 10:29 → ICU 09-16 22:46 → MS 09-18 15:41
PROVIDERS: Physical Therapy Assistant; Surgery; Urology; Admitting Provider Surgery; PCP Nurse Practitioner Family; Visit Provider Surgery
PROC: 0DBB0ZZ Excision of Ileum, Open Approach (ICD-10-PCS; CPT 49000; principal; 2018-09-16 10:30)
PROC: 0T788DZ Dilation of Bilateral Ureters with Intraluminal Device, Via Natural or Artificial Opening Endoscopic (ICD-10-PCS; CPT 52332; 2018-09-16 10:30)
DX: K63.2 Fistula of intestine (principal); K57.40 Diverticulitis of both small and large intestine with perforation and abscess without bleeding; E87.2 Acidosis; E44.1 Mild protein-calorie malnutrition; K56.51 Intestinal adhesions [bands], with partial obstruction; Z68.41 Body mass index [BMI] 40.0-44.9, adult; R10.84 Generalized abdominal pain; E86.0 Dehydration; E87.6 Hypokalemia; G89.18 Other acute postprocedural pain; R11.0 Nausea; Q62.5 Duplication of ureter; K66.0 Peritoneal adhesions (postprocedural) (postinfection); Z90.49 Acquired absence of other specified parts of digestive tract; Z93.2 Ileostomy status; L50.0 Allergic urticaria; T36.8X5A Adverse effect of other systemic antibiotics, initial encounter; Y92.230 Patient room in hospital as the place of occurrence of the external cause; E11.9 Type 2 diabetes mellitus without complications; I10 Essential (primary) hypertension; E66.01 Morbid (severe) obesity due to excess calories; F17.210 Nicotine dependence, cigarettes, uncomplicated; R35.0 Frequency of micturition; Z23 Encounter for immunization
CPT/HCPCS: 44120; 44121; 44005; 44140; 44139; 44310; 52332; 36415; 36569; 80048; 80051; 80053; 82947; 85027; 87077; 99222; 99232; 99233; J1650; NC; 71045; 81003; 81015; 82040; 82247; 82310; 82565; 83605; 83735; 84075; 84100; 84134; 84460; 85025; 85610; 87086; 87186; 88307; J0131; J0744; J1100; J1200; J1885; J2001; J2370; J2405; J2930; J3475; J3490

== ENCOUNTER 2018-09-30 18:00 | Inpatient (IN) | payer BC, SELFPAY ==
[2018-09-30] VITALS (11 sets, daily range): BP systolic 102–123; BP diastolic 59–79; PULSE 80–101; RESP 12–36; TEMP 36.2; O2SAT 79–100
--- NOTE | 2018-09-30 17:28 | PGE_ITS ---
Date of Service Date of service: 09/30/18 Time of Service: 17:24 Assessment and Plan (1) Abdominal wall dehiscence: Start date: 09/30/18 Start time: 17:27 Current visit: No Status: Acute Was called by [facility] approximately 3:00pm this afternoon with concerns of Ms. Parada's condition and CAT scan after presentation to their hospital. Patient was having some abdominal pain with high ileostomy outputs and the CAT scan showed fascial dehiscence in the lower aspect of her abdomen. She has her skin intact over the dehiscence and there is no signs of evisceration. Initial concern whether we could handle this at our hospital was questioned to the ED physician and initial plans were made to transfer the patient to [facility]. I received a call shortly thereafter by the hospital surgeon who told me that the abscesses were not large and not amenable to IR drainage and that the patient was stable and could be transferred to our institution. She believed that the patient's current condition was from dehydration and high ileostomy output of approximately 2.5 L a day. With their input I accepted the transfer with making available an ICU bed in our hospital with the possibility that she was sicker then presented to me by the outside institution. (2) Altered bowel elimination due to intestinal ostomy: Start date: 09/30/18 Start time: 17: Current visit: No Status: Acute Report from the outside hospital was that the patient was putting out between 2 and 2-1/2 L a day from her ileostomy. With these amounts of outputs and not getting proper p.o. replacement patient apparently has gone into dehydration and has an element of renal insufficiency. Report was that her lactate was 1.9 and the patient responded well to a liter bolus with heart rate in the 90s. (3) Acute kidney insufficiency: Start date: 09/30/18 Start time: 17:27 Current visit: No Status: Acute Report by ED physician that the patient has an element of acute kidney injury, he mentioned concern for sepsis Subjective Patient reports: still having pain Interval history since last seen: high ileostomy output abdominal pain
[2018-10-01 00:05] VITALS: BP 121/79; PULSE 57; RESP 18; TEMP 37.2; O2SAT 94
[2018-10-01 04:15] VITALS: BP 115/75; PULSE 81; RESP 18; TEMP 36.2; O2SAT 96
--- NOTE | 2018-10-01 04:33 | NUR.NOTE ---
2300 Pt arrived from [place] as direct transfer reported to be septic. Upon arrival Dr. Curtis in room and patient found to be stable with high output from ostomy, DEEPALI, dehydration but BP 120s sys and HR 70-90s. Patient having 8/10 pain and is receiving Dilaudid. CT results showed some abscess near incision and Dr. Curtis aware and not requiring immediate clean out at this time. Pt made [facility] status within 15 min of arrival. An IV was placed with some delay as patient is a hard stick and patient transferred out to [facility]. Nursing Note:
--- NOTE | 2018-10-01 05:46 | NUR.NOTE ---
At 0006 pt was transferred to med/surg room 216. upon arrival from [facility] pt was found to be more stable then expected. Assessment was normal and VSS were stable. see page two admission done. will continue to monitor.
--- NOTE | 2018-10-01 06:39 | W.PM.HP.N ---
Date of service: 09/30/18 Time of Service: 23:49 Assessment and Plan (1) Abdominal wall dehiscence: Start date: 10/01/18 Start time: 06:56 Current visit: No Status: Acute Patient examined and CAT scan reviewed appears to be omentum that has herniated out through a small portion of wound dehiscence in the lower aspect of the wound Patient start IV antibiotics and planning possible reoperation of the area with use of biologic mesh (2) Altered bowel elimination due to intestinal ostomy: Start date: 10/01/18 Start time: 06:56 Current visit: No Status: Acute Patient dehydrated from her 2-3 L of output from her ileostomy. Patient will need IV hydration replacement as well as some motility agent to help with her output will consider tincture of opium Due to the high output patient is having some excoriation at the wound site will possibly need wound care to deal with the ostomy appliance (3) Acute kidney insufficiency: Start date: 10/01/18 Start time: 06:56 Current visit: No Status: Acute Patient's creatinine 2.2 most likely secondary to dehydration from high ileostomy output will currently need aggressive IV hydration started LR at 125 an hour will increase to 175 and hour (4) S/P colectomy: Start date: 10/01/18 Start time: 06:56 Current visit: No Status: Acute CAT scan reviewed anastomosis looked intact and no signs of any leakage there are some interloop abscesses within the abdomen most likely consistent with wound infection and fluid secondary to her surgery blood and irrigate (5) Intra-abdominal abscess: Start date: 10/01/18 Start time: 06:59 Current visit: Yes Status: Acute Patient does have scattered smaller anterior abdominal interloop collections a large one seen in the left upper quadrant may be amenable to IR drainage currently stable with no evidence of anastomotic leaks. History of Present Illness Chief Complaint: Abdominal pain, wound drainage, high ileostomy output Narrative: Patient presented to [facility] with the above chief complaints. Patient had a CAT scan done there and some preliminary labs and was contacted by a Dr. Germain. The report given to me was that the patient was septic with acute kidney injury and intra-abdominal abscesses with a fascial dehiscence in the lower portion of her wound. I instructed him that due to her location and the complexity of her situation that a transfer to [facility] would be a more appropriate transfer and to proceed that way. Approximately 10 minutes later I received a call from 1 of their surgeons a . She is the surgeon at [facility] and was asked to see the patient. She described a different patient with smaller interloop collections that were not amenable to IR drainage and vital signs that were not consistent with sepsis. She was asked to admit the patient at her hospital and was asking to transfer due to continuity of care. With the different presentation by the surgeon from [place] I accepted the patient as transfer. Patient on previous admission had ACS risk calculator performed and was placed in her previous chart. Patient had considerable complication rates due to her comorbidities and the complexity of her case will obtain and place in this chart. Review of Systems Review of Systems All systems reviewed & are unremarkable except as noted in HPI and below Constitutional Reports as per HPI Cardiovascular Reports as per HPI Respiratory Reports as per HPI Gastrointestinal Reports abdominal pain (lower part of her incision, purulent drainage), Reports diarrhea (high ostomy output 2-3liters a day) and Reports other [facility] Medical History DM2 (diabetes mellitus, type 2) (Chronic) Essential hypertension (Chronic) Morbid obesity (Chronic) Surgical History S/P colectomy (Acute 09/16/18) History of bilateral oophorectomies (Resolved) History of cholecystectomy (Resolved) History of ureter repair (Resolved) Status post complete hysterectomy (Resolved) Family History Father CAD (coronary artery disease) AMI (acute myocardial infarction) Maternal Aunt Breast cancer Social History Smoking/Tobacco Use Status: Current every day Meds Home Medications Medication Instructions Recorded Confirmed Type lisinopril 5 mg PO DAILY 07/07/18 09/10/18 History metformin 1,000 mg PO BID 07/07/18 09/10/18 History acetaminophen [Tylenol Extra 500 mg PO QID PRN #10 tab 07/10/18 09/10/18 Rx Strength] ibuprofen 600 mg PO QID PRN #10 tab 07/10/18 09/10/18 Rx bisacodyl 5 mg tablet,delayed 5 mg PO ONCE #4 tab 09/05/18 09/10/18 Rx release hydrochlorothiazide 25 mg tablet 25 mg PO DAILY 09/05/18 09/10/18 History polyethylene glycol 3350 17 255 g PO ONCE #255 gm 09/05/18 09/10/18 Rx gram/dose oral powder sulfamethoxazole-trimethoprim 1 tab PO BID #17 tab 09/25/18 Rx Allergies Allergy/AdvReac Type Severity Reaction Status Date / Time ciprofloxacin [From Cipro] Allergy Severe Hives Verified 09/20/18 10:32 Penicillins Allergy Mild Hives Verified 09/05/18 10:50 metronidazole [From Flagyl] AdvReac Severe [place]/Vomi Verified 09/05/18 10:50 ting Exam Const General: cooperative Nutritional Appearance: average body habitus Orientation: alert, awake and oriented x3 GI Inspection: normal to inspection and incision Palpation: soft, hernia and tender Percussion: normal to percussion Auscultation: normal bowel sounds Abdomen image: 1. ileostomy 2. wound with incisional wound Skin Wounds: wounds noted (purulent drainage lower portion of wound) Results Last Vital Signs Temp 36.2 C L 10/01/18 04:15 Pulse 81 10/01/18 04:15 Resp 18 10/01/18 04:15 BP 115/75 10/01/18 04:15 Pulse Ox 96 10/01/18 04:15
--- NOTE | 2018-10-01 06:45 | HPE_ITS ---
Date of service: 09/30/18 Time of Service: 23:49 Assessment and Plan (1) Abdominal wall dehiscence: Start date: 10/01/18 Start time: 06:56 Current visit: No Status: Acute Patient examined and CAT scan reviewed appears to be omentum that has herniated out through a small portion of wound dehiscence in the lower aspect of the wound Patient start IV antibiotics and planning possible reoperation of the area with use of biologic mesh (2) Altered bowel elimination due to intestinal ostomy: Start date: 10/01/18 Start time: 06:56 Current visit: No Status: Acute Patient dehydrated from her 2-3 L of output from her ileostomy. Patient will need IV hydration replacement as well as some motility agent to help with her output will consider tincture of opium Due to the high output patient is having some excoriation at the wound site will possibly need wound care to deal with the ostomy appliance (3) Acute kidney insufficiency: Start date: 10/01/18 Start time: 06:56 Current visit: No Status: Acute Patient's creatinine 2.2 most likely secondary to dehydration from high ileostomy output will currently need aggressive IV hydration started LR at 125 an hour will increase to 175 and hour (4) S/P colectomy: Start date: 10/01/18 Start time: 06:56 Current visit: No Status: Acute CAT scan reviewed anastomosis looked intact and no signs of any leakage there are some interloop abscesses within the abdomen most likely consistent with wound infection and fluid secondary to her surgery blood and irrigate (5) Intra-abdominal abscess: Start date: 10/01/18 Start time: 06:59 Current visit: Yes Status: Acute Patient does have scattered smaller anterior abdominal interloop collections a large one seen in the left upper quadrant may be amenable to IR drainage currently stable with no evidence of anastomotic leaks. History of Present Illness Chief Complaint: Abdominal pain, wound drainage, high ileostomy output Narrative: Patient presented to [facility] with the above chief c omplaints. Patient had a CAT scan done there and some preliminary labs and was contacted by a Dr. Germain. The report given to me was that the patient was septic with acute kidney injury and intra-abdominal abscesses with a fascial dehiscence in the lower portion of her wound. I instructed him that due to her location and the complexity of her situation that a transfer to [facility] would be a more appropriate transfer and to proceed that way. Approximately 10 minutes later I received a call from 1 of their surgeons a . She is the surgeon at [facility] and was asked to see the patient. She described a different patient with smaller interloop collections that were not amenable to IR drainage and vital signs that were not consistent with sepsis. She was asked to admit the patient at her hospital and was asking to transfer due to continuity of care. With the different presentation by the surgeon from [place] I accepted the patient as transfer. Patient on previous admission had ACS risk calculator performed and was placed in her previous chart. Patient had considerable complication rates due to her comorbidities and the complexity of her case will obtain and place in this chart. Review of Systems Review of Systems All systems reviewed & are unremarkable except as noted in HPI and below Constitutional Reports as per HPI Cardiovascular Reports as per HPI Respiratory Reports as per HPI Gastrointestinal Reports abdominal pain (lower part of her incision, purulent drainage), Reports diarrhea (high ostomy output 2-3liters a day) and Reports other [facility] Medical History DM2 (diabetes mellitus, type 2) (Chronic) Essential hypertension (Chronic) Morbid obesity (Chronic) Surgical History S/P colectomy (Acute 09/16/18) History of bilateral oophorectomies (Resolved) History of cholecystectomy (Resolved) History of ureter repair (Resolved) Status post complete hysterectomy (Resolved) Family History Father CAD (coronary artery disease) AMI (acute myocardial infarction) Maternal Aunt Breast cancer Social History Smoking/Tobacco Use Status: Current every day Meds Home Medications Medication Instructions Recorded Confirmed Type lisinopril 5 mg PO DAILY 07/07/18 09/10/18 History metformin 1,000 mg PO BID 07/07/18 09/10/18 History acetaminophen [Tylenol Extra 500 mg PO QID PRN #10 tab 07/10/18 09/10/18 Rx Strength] ibuprofen 600 mg PO QID PRN #10 tab 07/10/18 09/10/18 Rx bisacodyl 5 mg tablet,delayed 5 mg PO ONCE #4 tab 09/05/18 09/10/18 Rx release hydrochlorothiazide 25 mg tablet 25 mg PO DAILY 09/05/18 09/10/18 History polyethylene glycol 3350 17 255 g PO ONCE #255 gm 09/05/18 09/10/18 Rx gram/dose oral powder sulfamethoxazole-trimethoprim 1 tab PO BID #17 tab 09/25/18 Rx Allergies Allergy/AdvReac Type Severity Reaction Status Date / Time ciprofloxacin [From Cipro] Allergy Severe Hives Verified 09/20/18 10:32 Penicillins Allergy Mild Hives Verified 09/05/18 10:50 metronidazole [From Flagyl] AdvReac Severe [place]/Vomi Verified 09/05/18 10:50 ting Exam Const General: cooperative Nutritional Appearance: average body habitus Orientation: alert, awake and oriented x3 GI Inspection: normal to inspection and incision Palpation: soft, hernia and tender Percussion: normal to percussion Auscultation: normal bowel sounds Abdomen image: 1. ileostomy 2. wound with incisional wound Skin Wounds: wounds noted (purulent drainage lower portion of wound) Results Last Vital Signs Temp 36.2 C L 10/01/18 04:15 Pulse 81 10/01/18 04:15 Resp 18 10/01/18 04:15 BP 115/75 10/01/18 04:15 Pulse Ox 96 10/01/18 04:15
[2018-10-01 07:14] LABS: Lactate-non-spesis 1.2 mmol/l (0.6-1.4)
[2018-10-01 07:19] LABS: Abs Immature Grans 0.07 k/cumm (0.0-0.09); Absolute Basophil Count 0.03 k/cumm (0.0-0.2); Absolute Lymphocyte Count 1.73 k/cumm (1.2-3.4); Absolute Monocyte Count 0.71 k/cumm (0.11-0.7); Absolute Neutrophil Count 5.35 k/cumm (1.2-6.7); Basophils % 0.4; Eosinophils % 7.1; HCT 33.7 % (36.0-46.0); HGB 11.4 g/dL (12.0-15.5); Immature Grans % 0.8; Lymphocytes % 20.4; Mean Corp. HGB Concentration 33.8 g/dL (32.0-36.0); Mean Corpuscular Hemoglobin 29.2 pg (27.0-33.0); Mean Corpuscular Volume 86.2 fL (80-95); Mean Platelet Volume 9.2 fL (8.0-11.0); Monocytes % 8.4; Neutrophils % 62.9; RBC 3.91 m/cumm (4.00-5.20); RBC Distribution Width 12.7 % (11.7-14.6); White Blood Cell Count 8.49 k/cumm (4.4-10.8)
[2018-10-01 07:27] VITALS: BP 107/71; PULSE 87; RESP 14; TEMP 36.9; O2SAT 97
[2018-10-01 07:32] LABS: Platelet Count 409 x1000/uL (130-400)
[2018-10-01 07:45] LABS: PTT Activated 24.4 sec (21.0-31.4)
[2018-10-01 07:52] LABS: ALT 61 U/L (12-78); AST 62 U/L (15-37); Albumin 2.7 g/dL (3.4-5.0); Alkaline Phosphatase 128 U/L (46-116); Anion Gap 11.6 mmol/L (3-11); BUN 32 mg/dL (7-18); Bilirubin, Total 0.8 mg/dL (0.2-1.0); CO2 26.4 mmol/L (21.0-32.0); CREATININE 1.16 mg/dL (0.55-1.02); Calcium 8.8 mg/dL (8.5-10.1); Chloride 94 mmol/L (98-107); Estimated GFR 50.07 (mL/min/1.73m2); Glucose 118 mg/dL (70-100); Potassium 3.7 mmol/L (3.5-5.1); Sodium 132 mmol/L (136-145); Total Protein 8.2 g/dL (6.4-8.2)
[2018-10-01] MEDS: Lactated Ringers 1,000 ML 175 ML IV ×3 (08:03→19:13)
[2018-10-01] MEDS: CEFEPIME 2 GM in Normal Saline 100 ML IVPB ×2 (08:57→19:11)
[2018-10-01] MEDS: HYDROmorphone 2 MG/ML VIAL IVP ×3 (10:33→20:30)
[2018-10-01 11:23] VITALS: BP 126/77; PULSE 84; RESP 14; TEMP 37.4; O2SAT 97
--- NOTE | 2018-10-01 11:39 | PHARADMIT ---
Addendum entered by Halie De Souza 10/29/18 16:21: Pharmacy Note Subjective eating and drinking okay per progress note Objective HR-91 other VS okay Assessment TPN discontinued fluconazole continues ketorolac and oxycodone discontinued hydromorphone changed to 1-2 mg Q4H PRN Plan possible discharge saturday Original Note: Addendum entered by Sarbjit Stewart III 10/28/18 11:52: Pharmacy Note Subjective TPN being tapered (misc order) by 10cc/hr every 4 hours until finished. Objective VS-OK Temp-37.7C FSBS-157 No Labs, passing stool Wgt-122.6 kg Assessment Dilaudid to PO, Gabapentin added for pain control. Yeast dermatits, Nystatin cream & IV Diflucan 100mg Plan To be discharge to her mother's in [place] when ready Original Note: Addendum entered by Halie De Souza 10/27/18 15:36: Pharmacy Note Subjective working on eating more Objective VS-okay K+3.3 Assessment no med changes, watch K+ tomorrow to see if additional supplementation is needed Plan possible d/c of TPN tomorrow if pt tolerates dinner and breakfast per progress note Original Note: Addendum entered by Radha Mondragon 10/26/18 11:33: Pharmacy Note Subjective Post operative for ileostomy reversal was 10/15/18 w/wound vac Objective VS ok , Afebrile x 72h, Pain 6/10, H/H 8.5/26.1, weight same last 3 days, Albumin 2.0 Assessment TPN resuming this afternoon, says she's taking oral, but just not enough to make progress Hydromorphone IV, OxyIR, Ketorolac, APAP for pain Added Metamucil for loose stool Plan Cultures from abdominal fluid collected @ [facility] 10/24/18 pending Original Note: Addendum entered by Radha Mondragon 10/23/18 15:39: Pharmacy Note Subjective Per note, wound vac not sealing correctly, multiple dressing changes Objective VS ok, Pain 8/10, weight slow increase 120kg, no labs Assessment TPN on hold, clear bag remain and MAY restart at 5pm tonight if not tolerating diet per oral intake: had glucerna for lunch ~220ml Trip to [facility] for today (IR) postponed until Saturday due to emergency on their end PICC line has been clogged by TPN-given Cathflo Lovenox dc'd Dilaudid IVP, oral OxyIR and APAP for pain Plan NPO early moring, going to [facility] mid morning Original Note: Addendum entered by Sarbjit Stewart III 10/22/18 15:07: Pharmacy Note Subjective Surgeon found 5cm fluid collection intra-abdominal abscess, call [facility] Interventional Radiology for help. Passing flatus, MD did not decrease TPN at this time. Psych consult requested, patient is becoming depressed. No psych meds indicated at this time. Objective VS-OK pain:8 Mag-1.8 FSBS-151 H&H-same Assessment TPN continues Plan Awaiting reply for [facility] Original Note: Addendum entered by Sarbjit Stewart III 10/21/18 10:30: Pharmacy Note Subjective If able to tolerte breakfast, MD to begin tapering TPN (ate 100%) Objective VS-OK pain:8 Na-134 K+4.0, Phos-2.2 Mag-1.7 Ca++8.4, H&H-stable Assessment Magnesium 4Gm bolus, Plan Awaiting MD decision Original Note: Addendum entered by Halie De Souza 10/20/18 13:44: Pharmacy Note Subjective pt feeling better and pain at old ileostomy site is decreasing per progress note Objective HR-91 other VS okay mag-1.5 Assessment cefepime discontinued 200 mg iron sucrose given yesterday MD to order mag supplementation Plan watch for decreased rate of TPN tomorrow Original Note: Addendum entered by Sarbjit Stewart III 10/17/18 14:20: Pharmacy Note Subjective Patient experience some pain over, given Hydromorphone & Lorazepam. Hs passed no flatus, no bowel movement yet. Provider hoping for flatus before advancing diet. Objective VS-OK pain: 8/10 Na-135 K+4.6 Mag-1.6 Phos-2.4 H&H-9.3/28.9 Assessment TPN continues as does Cefepime Plan Continue ambulation Original Note: Addendum entered by Sarbjit Stewart III 10/16/18 14:31: Pharmacy Note Subjective Patient tolerated reversal well, ambulating. Continue NPO today. Objective VS-OK Ca-9.2, Phos-1.8 Mag-2.0 H&H-9.7/29.4 Wgt-114.3 kg Assessment TPN, IV ABX continue Plan Awaiting bowel function to return. Original Note: Addendum entered by Sarbjit Stewart III 10/15/18 10:50: Pharmacy Note Subjective Patient going to OR today for Ileostomy reversal. Objective VS-OK Na-134 K64.5 Phos-2.1 Mag-1.8 H&H-10.4/32.2 BG-121 Wgt-115.7 kg Assessment TPN, IV ABX Continue Plan Awaiting return from OR Original Note: Addendum entered by Sarbjit Stewart III 10/09/18 15:52: Pharmacy Note Subjective Provider notes that patients ileostomy output > 3-4 liters Objective VS-OK No Labs, Wgt-115.8 kg Assessment Lomotil Opium Tinct,,questran dc'd, Patient is NPO and has started TPN Aspart at q6hrs, Fats started. Meds may be given PO with sips Plan Plan is to reverse ileostomy in next few days. Original Note: Addendum entered by Halie De Souza 10/07/18 12:35: Pharmacy Note Subjective continues to have high output from ileostomy per progress note Objective HR-94 other VS okay K+3.4 Assessment lomotil and psyllium changed to before meals (still 4 times a day) pedialyte ordered 1000 mL TID ranitidine ordered BID fibercon discontinued Plan continue to watch VS labs and for med changes Original Note: Admission Pharmacy Clinical Review FASCIAL DEHISCENCE Code Status Full Code Current Weight Wgt-114 kg Renally Cleared and Narrow Therapeutic Index Meds CrCl~ 60.4 mL/min Meds-OK QTc Value / Action Taken none BP Control, Fever BP- 126/77 Tmax- 37.4C Electrolytes reviewed Na- 132 K+3.7 DVT Prophylaxis No, (? SURGERY) Opiate Usage / Scheduled Bowel Regimen Ordered Yes No Plt/SCr for Heparin / Enoxaparin Plts-409 SCr-1.16 INR for Warfarin na H/H stable, WBC/Bands H&H- 11.4/33.7 WBC- 8.49 Antibiotic appropriateness Cefepime Cultures and Sensitivities none Surgical ABX d/c within 24 hr na DM control / Insulin Dosing BG-118 Heart Failure (Check EF%) (EDEN's, B-Block, Diuretics) none IV to PO Switch No Home Meds Reviewed Yes Home Meds Not Ordered APAP, Dulcolax, Lisinopril, Ibuprofen, Bactrim-DS, Miralax, Metformin, HCTZ Comments
--- NOTE | 2018-10-01 13:17 | PDOC.CMIN ---
- If Service Date Differs Date of service: 10/01/18 Time of Service: 13:17 Care Management Initial Assess REASON FOR HOSPITALIZATION:: Abdominal wall dehiscence PAST MEDICAL HISTORY/PAST SURGICAL HISTORY:: DM2 (diabetes mellitus, type 2) (Chronic). Essential hypertension (Chronic). Morbid obesity (Chronic). S/P colectomy (Acute 09/16/18). History of bilateral oophorectomies (Resolved). History of cholecystectomy (Resolved). History of ureter repair (Resolved). Status post complete hysterectomy (Resolved) PREVIOUS FUNCTIONAL STATUS/SOCIAL/FAMILY SUPPORTS:: Radha resides with her [facility] in [place] at baseline, they have been for 5 years. Radha has two sons both whom reside in [facility]. 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 Radha has been residing with her mom in [place] after her hospitalization, which she states has been going well. She is independent at baseline, drives, and is able to manage ADL's CURRENT FUNCTIONAL STATUS:: Currently Radha is lying in bed when this internal communications writer visits. She is pleasant and receptive to discussion. ADVANCE DIRECTIVES:: None on file Has patient been provided with information about the portal?: Yes Did the patient sign up for the portal?: No (already signed up) CODE STATUS:: Full Code INSURANCE COVERAGE / FINANCIAL ISSUES:: BCBS CURRENT HOME/COMMUNITY SERVICES/EQUIPMENT:: Currently Radha has home health RN services. She has no medical equipment in the community. PRIMARY CARE PHYSICIAN:: Danna Gonzalez POTENTIAL DISCHARGE NEEDS:: F/U appointment with Dr. Curtis. resume Home Health RN services PATIENT/FAMILY EDUCATION NEEDS:: Review DC instructions, any limitations, and ongoing DC planning discussion. Discuss 'Ask Me Three' ANTICIPATED BARRIERS TO DISCHARGE:: None identified at this time. TRANSPORTATION:: via private vehicle with family PLAN:: Radha will return to her moms home in [place] at time of DC. She will f/U with Dr. Curtis and plan of care as prescribed. Radha will resume home health RN services at time of DC. Her family will transport when ready. Readmission - Within the Past 30 Days Yes or No: Y - Date of First Admission Date of 1st Admission: 09/10/18 - Date of this Admission Date of Admission: 09/30/18 This admission was: Direct Admit (Direct from [facility]) - Office Visit Since 1st Admission Have you seen your PCP in the office since discharge?: No Had an appointment Been Scheduled?: Yes Date of Scheduled Appointment: 10/03/18 Describe barriers for scheduling or getting an appointment: N/A - Speicalist Appointments Have you seen any other specialist since your 1st Admission?: No - I. Interview patient and/or Family Difficulty reaching your doctor or getting an office appt?: No Have you had trouble purchasing/ or taking medication?: No How do you take your medications and set up your pills?: Able to take medications from bottles Have you had trouble with getting meals at home?: No Did you feel ready for discharge when you left the last time: Yes Were services received that you thought were set up on disch: Yes What services were received?: Home Health RN services Did you call your physician beore you came to the ED?: No Did your physician tell you to come in?: No - If the patient had a VNA ordered Did the patient have a VNA order?: Yes Did you call the VNA before you came?: Yes (VNA sent to [facility]) Did the VNA tell you to come to the hospital?: Yes Do you know if the VNA called your physician?: No - Ask the Care Team Members: What do you think caused the patient to be readmitted: Radha is admitted with a Fascial Dehiscence of lower abdomen. - ED visits How many ED visits in the past 12 months: 1 - Assessment for Readmission Summary of readmission circumstances, based upon interviews: Radha was discharged on 09/25/18 after an extended hospitalization. She was seen by [place] [facility] whom sent her to the [facility]. Radha was seen in the ER in [place] whom then sent Radha to [facility]. Radha had surgery on her previous admission and was ready for DC. Radha has been readmitted for Fascial Dehiscence.
--- NOTE | 2018-10-01 14:20 | INITIAL_ITS ---
- If Service Date Differs Date of service: 10/01/18 Time of Service: 13:17 Care Management Initial Assess REASON FOR HOSPITALIZATION:: Abdominal wall dehiscence PAST MEDICAL HISTORY/PAST SURGICAL HISTORY:: DM2 (diabetes mellitus, type 2) (Chronic). Essential hypertension (Chronic). Morbid obesity (Chronic). S/P colectomy (Acute 09/16/18). History of bilateral oophorectomies (Resolved). History of cholecystectomy (Resolved). History of ureter repair (Resolved). Status post complete hysterectomy (Resolved) PREVIOUS FUNCTIONAL STATUS/SOCIAL/FAMILY SUPPORTS:: Radha resides with her [facility] in [place] at baseline, they have been for 5 years. Radha has two sons both whom reside in [facility]. 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 Radha has been residing with her mom in [place] after her ho spitalization, which she states has been going well. She is independent at baseline, drives, and is able to manage ADL's CURRENT FUNCTIONAL STATUS:: Currently Radha is lying in bed when this technical report writer visits. She is pleasant and receptive to discussion. ADVANCE DIRECTIVES:: None on file Has patient been provided with information about the portal?: Yes Did the patient sign up for the portal?: No (already signed up) CODE STATUS:: Full Code INSURANCE COVERAGE / FINANCIAL ISSUES:: BCBS CURRENT HOME/COMMUNITY SERVICES/EQUIPMENT:: Currently Radha has home health RN services. She has no medical equipment in the community. PRIMARY CARE PHYSICIAN:: Danna Gonzalez POTENTIAL DISCHARGE NEEDS:: F/U appointment with Dr. Curtis. resume Home Health RN services PATIENT/FAMILY EDUCATION NEEDS:: Review DC instructions, any limitations, and ongoing DC planning discussion. Discuss 'Ask Me Three' ANTICIPATED BARRIERS TO DISCHARGE:: None identified at this time. TRANSPORTATION:: via private vehicle with family PLAN:: Radha will return to her moms home in [place] at time of DC. She will f/U with Dr. Curtis and plan of care as prescribed. Radha will resume home health RN services at time of DC. Her family will transport when ready. Readmission - Within the Past 30 Days Yes or No: Y - Date of First Admission Date of 1st Admission: 09/10/18 - Date of this Admission Date of Admission: 09/30/18 This admission was: Direct Admit (Direct from [facility] [place]note 2[place] - Office Visit Since 1st Admission Have you seen your PCP in the office since discharge?: No Had an appointment Been Scheduled?: Yes Date of Scheduled Appointment: 10/03/18 Describe barriers for scheduling or getting an appointment: N/A - Speicalist Appointments Have you seen any other specialist since your 1st Admission?: No - I. Interview patient and/or Family Difficulty reaching your doctor or getting an office appt?: No Have you had trouble purchasing/ or taking medication?: No How do you take your medications and set up your pills?: Able to take medications from bottles Have you had trouble with getting meals at home?: No Did you feel ready for discharge when you left the last time: Yes Were services received that you thought were set up on disch: Yes What services were received?: Home Health RN services Did you call your physician beore you came to the ED?: No Did your physician tell you to come in?: No - If the patient had a VNA ordered Did the patient have a VNA order?: Yes Did you call the VNA before you came?: Yes (VNA sent to [facility] [place] 2[place] Did the VNA tell you to come to the hospital?: Yes Do you know if the VNA called your physician?: No - Ask the Care Team Members: What do you think caused the patient to be readmitted: Radha is admitted with a Fascial Dehiscence of lower abdomen. - ED visits How many ED visits in the past 12 months: 1 - Assessment for Readmission Summary of readmission circumstances, based upon interviews: Radha was discharged on 09/25/18 after an extended hospitalization. [facility]. Radha was seen in the ER in [place] whom then sent Radha to [facility]. Radha had surgery on her previous admission and was ready for DC. Radha has been readmitted for Fascial Dehiscence.
[2018-10-01 15:19] LABS: Lactate-non-spesis 1.1 mmol/l (0.6-1.4)
[2018-10-01 16:24] VITALS: BP 101/68; PULSE 86; RESP 18; TEMP 37.1; O2SAT 98
[2018-10-01] MEDS: Normal Saline Flush 10 ML SYR IVP ×2 (16:33→20:31)
[2018-10-02 00:31] VITALS: BP 123/75; PULSE 88; RESP 18; TEMP 36.5; O2SAT 100
[2018-10-02] MEDS: Lactated Ringers 1,000 ML 175 ML IV ×4 (01:54→23:30)
[2018-10-02] MEDS: HYDROmorphone 2 MG/ML VIAL IVP ×5 (01:54→22:12)
[2018-10-02] MEDS: Normal Saline Flush 10 ML SYR IVP ×5 (01:54→22:12)
--- NOTE | 2018-10-02 06:45 | W.PM.PROGNOT ---
Date of Service Date of service: 10/02/18 Time of Service: 06:45 Subjective Patient reports: no new complaints Exam GI Inspection: normal to inspection Palpation: soft Percussion: normal to percussion Auscultation: normal bowel sounds Abdomen image: 1. bridge removed Objective Objective Clinical Data: Abnormal lab results 10/01/18 10/01/18 Range/Units 07:00 07:00 RBC 3.91 L (4.00-5.20) m/cumm Hgb 11.4 L (12.0-15.5) g/dL Hct 33.7 L (36.0-46.0) % Plt Count 409 H D (130-400) x1000/uL Absolute Monocytes 0.71 H (0.11-0.7) k/cumm Sodium 132 L (136-145) mmol/L Chloride 94 L (98-107) mmol/L Anion Gap 11.6 H (3-11) mmol/L BUN 32 H (7-18) mg/dL Creatinine 1.16 H (0.55-1.02) mg/dL Glucose 118 H (70-100) mg/dL AST 62 H (15-37) U/L Alkaline Phosphatase 128 H (46-116) U/L Albumin 2.7 L (3.4-5.0) g/dL Vital Signs Temperature 36.5 C 10/02/18 00:31 Temperature Source Tympanic 10/02/18 00:31 Pulse 88 10/02/18 00:31 Pulse Rhythm Regular 10/02/18 00:50 Pulse 89 09/30/18 23:50 Respiratory Rate 18 10/02/18 00:31 Respiratory Effort 10/02/18 00:50 Respiratory Depth Normal 10/02/18 00:50 Respiratory Pattern Normal 10/02/18 00:50 Blood Pressure 123/75 10/02/18 00:31 Blood Pressure Mean 85 09/30/18 23:36 Pulse Oximetry 100 10/02/18 00:31 Oxygen Delivery Method Room Air 10/02/18 00:31 Oxygen Flow Rate 0 10/02/18 00:31 Pain Level 8 10/01/18 20:02 Comment 10/01/18 04:15 Intake & Output 10/01/18 10/01/18 10/02/18 11:59 23:59 11:59 Intake Total 877 / 2840.333 1963.333 / 2840.333 1000 / 1000 Output Total 1100 / 2700 1600 / 2700 750 / 750 Balance -223 / 140.333 363.333 / 140.333 250 / 250 Weight 114 kg Intake: IV 877 / 2840.333 1962.333 / 2840.333 1000 / 1000 Output: Urine 550 / 1750 1200 / 1750 Stool 550 / 950 400 / 950 750 / 750 Other: Urine Color Dark Sharmaine Light Sharmaine Urine Appearance Clear Cloudy Urine Odor Normal Voiding Methods Toilet Toilet Laboratory Results WBC 8.49 k/cumm (4.4-10.8) 10/01/18 07:00 RBC 3.91 m/cumm (4.00-5.20) L 10/01/18 07:00 Hgb 11.4 g/dL (12.0-15.5) L 10/01/18 07:00 Hct 33.7 % (36.0-46.0) L 10/01/18 07:00 MCV 86.2 fL (80-95) 10/01/18 07:00 MCH 29.2 pg (27.0-33.0) 10/01/18 07:00 MCHC 33.8 g/dL (32.0-36.0) 10/01/18 07:00 RDW 12.7 % (11.7-14.6) 10/01/18 07:00 Plt Count 409 x1000/uL (130-400) H D 10/01/18 07:00 MPV 9.2 fL (8.0-11.0) 10/01/18 07:00 Immature Gran % 0.8 10/01/18 07:00 Neutrophils % 62.9 10/01/18 07:00 Lymphocytes % 20.4 10/01/18 07:00 Monocytes % 8.4 10/01/18 07:00 Eosinophils % 7.1 10/01/18 07:00 Basophils % 0.4 10/01/18 07:00 Absolute Neutrophils 5.35 k/cumm (1.2-6.7) 10/01/18 07:00 Absolute Lymphocytes 1.73 k/cumm (1.2-3.4) 10/01/18 07:00 Absolute Monocytes 0.71 k/cumm (0.11-0.7) H 10/01/18 07:00 Absolute Eosinophils 0.60 k/cumm (0.0-0.7) 10/01/18 07:00 Absolute Basophils 0.03 k/cumm (0.0-0.2) 10/01/18 07:00 APTT 24.4 sec (21.0-31.4) 10/01/18 07:00 Sodium 132 mmol/L (136-145) L 10/01/18 07:00 Potassium 3.7 mmol/L (3.5-5.1) 10/01/18 07:00 Chloride 94 mmol/L (98-107) L 10/01/18 07:00 Carbon Dioxide 26.4 mmol/L (21.0-32.0) 10/01/18 07:00 Anion Gap 11.6 mmol/L (3-11) H 10/01/18 07:00 BUN 32 mg/dL (7-18) H 10/01/18 07:00 Creatinine 1.16 mg/dL (0.55-1.02) H 10/01/18 07:00 Estimated GFR/1.73 m2 50.07 (mL/min/1.73m2) 10/01/18 07:00 Glucose 118 mg/dL (70-100) H 10/01/18 07:00 Lactate 1.1 mmol/l (0.6-1.4) 10/01/18 15:10 Calcium 8.8 mg/dL (8.5-10.1) 10/01/18 07:00 Total Bilirubin 0.8 mg/dL (0.2-1.0) 10/01/18 07:00 AST 62 U/L (15-37) H 10/01/18 07:00 ALT 61 U/L (12-78) 10/01/18 07:00 Alkaline Phosphatase 128 U/L (46-116) H 10/01/18 07:00 Total Protein 8.2 g/dL (6.4-8.2) 10/01/18 07:00 Albumin 2.7 g/dL (3.4-5.0) L 10/01/18 07:00
[2018-10-02 07:26] LABS: Abs Immature Grans 0.06 k/cumm (0.0-0.09); Absolute Basophil Count 0.03 k/cumm (0.0-0.2); Absolute Eosinophil Count 0.66 k/cumm (0.0-0.7); Absolute Lymphocyte Count 1.23 k/cumm (1.2-3.4); Absolute Monocyte Count 0.47 k/cumm (0.11-0.7); Absolute Neutrophil Count 3.23 k/cumm (1.2-6.7); Basophils % 0.5; Eosinophils % 11.6; HCT 32.9 % (36.0-46.0); HGB 11.2 g/dL (12.0-15.5); Immature Grans % 1.1; Lymphocytes % 21.7; Mean Corpuscular Hemoglobin 29.3 pg (27.0-33.0); Mean Corpuscular Volume 86.1 fL (80-95); Mean Platelet Volume 9.8 fL (8.0-11.0); Monocytes % 8.3; Neutrophils % 56.8; Platelet Count 302 x1000/uL (130-400); RBC 3.82 m/cumm (4.00-5.20); RBC Distribution Width 12.9 % (11.7-14.6); White Blood Cell Count 5.68 k/cumm (4.4-10.8)
[2018-10-02 07:48] LABS: ALT 71 U/L (12-78); AST 72 U/L (15-37); Albumin 2.4 g/dL (3.4-5.0); Alkaline Phosphatase 120 U/L (46-116); Anion Gap 9.9 mmol/L (3-11); BUN 20 mg/dL (7-18); Bilirubin, Total 0.7 mg/dL (0.2-1.0); CO2 29.1 mmol/L (21.0-32.0); CREATININE 0.77 mg/dL (0.55-1.02); Calcium 8.9 mg/dL (8.5-10.1); Chloride 97 mmol/L (98-107); Glucose 92 mg/dL (70-100); Potassium 3.9 mmol/L (3.5-5.1); Sodium 136 mmol/L (136-145); Total Protein 7.5 g/dL (6.4-8.2)
[2018-10-02 08:48] VITALS: BP 121/78; PULSE 97; RESP 20; TEMP 37.7; O2SAT 96
--- NOTE | 2018-10-02 08:49 | PGE_ITS ---
Date of Service Date of service: 10/02/18 Time of Service: 08:46 Assessment and Plan (1) Acute kidney insufficiency: Start date: 10/02/18 Start time: 08:48 Current visit: No Status: Acute This has resolved with IV hydration (2) Altered bowel elimination due to intestinal ostomy: Start date: 10/02/18 Start time: 08:48 Current visit: No Status: Acute Patient continues to have high output appears to have lessened with the tincture of opium and will give the remainder of 24 hours to see if this has changed currently patient was putting out approximately 1400 for the morning shift and will reassess. (3) Abdominal wall dehiscence: Start date: 10/02/18 Start time: 08:49 Current visit: No Status: Acute Patient had all her mario removed today there was a small inferior porti on of the wound that was concern for wound dehiscence so interrupted vertical mattress 2-0 nylon sutures were placed and Steri-Strips over the rest of the wound Subjective Patient reports: no new complaints Interval history since last seen: Patient continues to have issues with the ileostomy this morning on rounds inspection of her wound and ostomy the medial lower aspect at about the 7 o'clock position had blown out and there was succus coating the dressing on the midline wound. Exam Const General: cooperative Orientation: alert, awake and oriented x3 GI Inspection: normal to inspection Palpation: soft Percussion: normal to percussion Auscultation: normal bowel sounds Abdomen image: 1. [place] removed and interrupted nylon sutures approximately 5 cm were placed 2. Ileostomy site Objective Objective Clinical Data: Abnormal lab results 10/01/18 10/01/18 10/02/18 Range/Units 07:00 07:00 06:41 RBC 3.91 L (4.00-5.20) m/cumm Hgb 11.4 L (12.0-15.5) g/dL Hct 33.7 L (36.0-46.0) % Plt Count 409 H D (130-400) x1000/uL Absolute Monocytes 0.71 H (0.11-0.7) k/cumm Sodium 132 L (136-145) mmol/L Chloride 94 L 97 L (98-107) mmol/L Anion Gap 11.6 H (3-11) mmol/L BUN 32 H 20 H D (7-18) mg/dL Creatinine 1.16 H (0.55-1.02) mg/dL Glucose 118 H (70-100) mg/dL AST 62 H 72 H (15-37) U/L Alkaline Phosphatase 128 H 120 H (46-116) U/L Albumin 2.7 L 2.4 L (3.4-5.0) g/dL 10/02/18 Range/Units 06:41 RBC 3.82 L (4.00-5.20) m/cumm Hgb 11.2 L (12.0-15.5) g/dL Hct 32.9 L (36.0-46.0) % Plt Count (130-400) x1000/uL Absolute Monocytes (0.11-0.7) k/cumm Sodium (136-145) mmol/L Chloride (98-107) mmol/L Anion Gap (3-11) mmol/L BUN (7-18) mg/dL Creatinine (0.55-1.02) mg/dL Glucose (70-100) mg/dL AST (15-37) U/L Alkaline Phosphatase (46-116) U/L Albumin (3.4-5.0) g/dL Vital Signs Temperature 36.5 C 10/02/18 00:31 Temperature Source Tympanic 10/02/18 00:31 Pulse 88 10/02/18 00:31 Pulse Rhythm Regular 10/02/18 00:50 Pulse 89 09/30/18 23:50 Respiratory Rate 18 10/02/18 00:31 Respiratory Effort 10/02/18 00:50 Respiratory Depth Normal 10/02/18 00:50 Respiratory Pattern Normal 10/02/18 00:50 Blood Pressure 123/75 10/02/18 00:31 Blood Pressure Mean 85 09/30/18 23:36 Pulse Oximetry 100 10/02/18 00:31 Oxygen Delivery Method Room Air 10/02/18 00:31 Oxygen Flow Rate 0 10/02/18 00:31 Pain Level 9 10/02/18 07:29 Comment 10/01/18 04:15 Intake & Output 10/01/18 10/01/18 10/02/18 11:59 23:59 11:59 Intake Total 877 / 2840.333 1963.333 / 2840.333 1000 / 1000 Output Total 1100 / 2700 1600 / 2700 1850 / 1850 Balance -223 / 140.333 363.333 / 140.333 -850 / -850 Weight 114 kg Intake: IV 877 / 2840.333 1963.333 / 2840.333 1000 / 1000 Output: Urine 550 / 1750 1200 / 1750 400 / 400 Stool 550 / 950 400 / 950 1450 / 1450 Other: Urine Color Dark Sharmaine Light Sharmaine Urine Appearance Clear Cloudy Urine Odor Normal Voiding Methods Toilet Toilet Laboratory Results WBC 5.68 k/cumm (4.4-10.8) D 10/02/18 06:41 RBC 3.82 m/cumm (4.00-5.20) L 10/02/18 06:41 Hgb 11.2 g/dL (12.0-15.5) L 10/02/18 06:41 Hct 32.9 % (36.0-46.0) L 10/02/18 06:41 MCV 86.1 fL (80-95) 10/02/18 06:41 MCH 29.3 pg (27.0-33.0) 10/02/18 06:41 MCHC 34.0 g/dL (32.0-36.0) 10/02/18 06:41 RDW 12.9 % (11.7-14.6) 10/02/18 06:41 Plt Count 302 x1000/uL (130-400) D 10/02/18 06:41 MPV 9.8 fL (8.0-11.0) 10/02/18 06:41 Immature Gran % 1.1 10/02/18 06:41 Neutrophils % 56.8 10/02/18 06:41 Lymphocytes % 21.7 10/02/18 06:41 Monocytes % 8.3 10/02/18 06:41 Eosinophils % 11.6 10/02/18 06:41 Basophils % 0.5 10/02/18 06:41 Absolute Neutrophils 3.23 k/cumm (1.2-6.7) 10/02/18 06:41 Absolute Lymphocytes 1.23 k/cumm (1.2-3.4) 10/02/18 06:41 Absolute Monocytes 0.47 k/cumm (0.11-0.7) 10/02/18 06:41 Absolute Eosinophils 0.66 k/cumm (0.0-0.7) 10/02/18 06:41 Absolute Basophils 0.03 k/cumm (0.0-0.2) 10/02/18 06:41 APTT 24.4 sec (21.0-31.4) 10/01/18 07:00 Sodium 136 mmol/L (136-145) 10/02/18 06:41 Potassium 3.9 mmol/L (3.5-5.1) 10/02/18 06:41 Chloride 97 mmol/L (98-107) L 10/02/18 06:41 Carbon Dioxide 29.1 mmol/L (21.0-32.0) 10/02/18 06:41 Anion Gap 9.9 mmol/L (3-11) 10/02/18 06:41 BUN 20 mg/dL (7-18) H D 10/02/18 06:41 Creatinine 0.77 mg/dL (0.55-1.02) 10/02/18 06:41 Estimated GFR/1.73 m2 >= 60.00 (mL/min/1.73m2) 10/02/18 06:41 Glucose 92 mg/dL (70-100) 10/02/18 06:41 Lactate 1.1 mmol/l (0.6-1.4) 10/01/18 15:10 Calcium 8.9 mg/dL (8.5-10.1) 10/02/18 06:41 Total Bilirubin 0.7 mg/dL (0.2-1.0) 10/02/18 06:41 AST 72 U/L (15-37) H 10/02/18 06:41 ALT 71 U/L (12-78) 10/02/18 06:41 Alkaline Phosphatase 120 U/L (46-116) H 10/02/18 06:41 Total Protein 7.5 g/dL (6.4-8.2) 10/02/18 06:41 Albumin 2.4 g/dL (3.4-5.0) L 10/02/18 06:41
[2018-10-02] MEDS: CEFEPIME 2 GM in Normal Saline 100 ML IVPB ×2 (11:53→23:54)
--- NOTE | 2018-10-02 13:09 | W.NUTCONSULT ---
Date of service: 10/02/18 Time of Service: 13:09 Nutritional Consult ASSESSMENT: Ms. Parada is currently NPO. She is admitted s/p colectomy with high ileostomy output, and intraabdominal abscess. She is 69 and her current weight is 114 kg. Her BMI is 38.1 kg/m2 consistent with class 2 obesity. Her weight one month ago and two months ago was 125 kg which represents a significant unintentional weight loss of 8.9%. She has been receiving less than 50% of her nutritional needs for greater than or equal to five days. NUTRITIONAL DIAGNOSIS: Severe malnutrition in the setting of acute illness as evidenced by the weight loss and inadequate intake noted above in the assessment. INTERVENTION: Will remain available to provide TPN recommendations if that is the immediate plan. When she advances to a regular diet, would recommend a diet with soluble fibers, lean proteins, and starches to help reduce ostomy output. Would also suggest Adrian supplements (glutamine and arginine, the preferred nutrients of the intestine) while she is here to help with wound healing and intestinal absorption. Once home would suggest glutamine and arginine supplements in addition to adequate protein so the body can use those amino acids for intestinal health and wound healing. Will encourage adequate PO, especially of protein to help prevent further malnutrition and help to restore her nutritional status back to normal. MONITORING AND EVALUATION: 1. Will monitor weight and progress with PO and/or TPN. Please weight patient daily so we can best assess her nutritional status given her malnutrition. 2. Will evaluate nutrition care plan ongoing and adjust as needed. Time Spent in Nutritional Counseling and Treatment: ROM
--- NOTE | 2018-10-02 13:59 | PDOC.CMPRO ---
Care Management Progress Note S/O: Radha participated in nutritional consult with Jyoti Marie who noted Radha has severe malnutrition in the setting of acute illness as evidenced by the weight loss and inadequate intake she noted an unintentional weight loss of 11kg in one month. Jyoti encouraged high fiber diet. Radha had a PICC line placed today and will begin TPN. She continues to ambulate consistently through the hallways. CM will continue to follow. A: 48 year old female admitted to [facility] 09/30/18 for Fascial Dehiscence P: Radha will return to her mother's home in [place] when medically ready for discharge; anticipated she will resume VNA/RN supports. She had a PICC placed for TPN and continues to be closely monitored. She will transport via private vehicle with her family when ready.
[2018-10-02 15:56] VITALS: BP 119/68; PULSE 97; RESP 18; TEMP 37.6; O2SAT 99
--- NOTE | 2018-10-02 17:39 | CMPROGNOTE_ITS ---
Care Management Progress Note S/O: Radha participated in nutritional consult with Jyoti Marie who noted Radha has severe malnutrition in the setting of acute illness as evidenced by the weight loss and inadequate intake she noted an unintentional weight loss of 11kg in one month. Jyoti encouraged high fiber diet. Radha had a PICC line placed today and will begin TPN. She continues to ambulate consistently through the hallways. CM will continue to follow. A: 48 year old female admitted to [facility] 09/30/18 for Fascial Dehiscence P: Radha will return to her mother's home in [place] when medically ready for discharge; anticipated she will resume VNA/RN supports. She had a PICC placed for TPN and continues to be closely monitored. She will transport via private vehicle with her family when ready.
[2018-10-02] MEDS: Normal Saline Flush 10 ML SYR 20 ML IVP (19:53)
[2018-10-02 23:35] VITALS: BP 127/81; PULSE 94; RESP 18; TEMP 37.2; O2SAT 98
[2018-10-03] MEDS: HYDROmorphone 2 MG/ML VIAL IVP ×5 (02:45→20:27)
[2018-10-03] MEDS: Normal Saline Flush 10 ML SYR IVP ×3 (02:45→15:53)
[2018-10-03] MEDS: Lactated Ringers 1,000 ML 175 ML IV (05:15)
--- NOTE | 2018-10-03 07:17 | PGE_ITS ---
Documented by User: KUSHAL Jones 10/03/18 07:21 Date of Service Date of service: 10/03/18 Time of Service: 07:13 Assessment and Plan (1) Acute kidney insufficiency: Current visit: No Status: Acute Resolved PICC line placed yesterday, will consult to see if this can be changed to a 3 port access PICC to allow for TPN. (2) Altered bowel elimination due to intestinal ostomy: Current visit: No Status: Acute Continued high output. Will increase opium tincture today, to see if this reduces her output. (3) Abdominal wall dehiscence: Current visit: No Status: Acute Nylon 2-[address], covered with Mepliex Ag. Mild drainage noted on the lower 1/3 of the incision site. Qualifiers: Encounter type: subsequent encounter Qualified Code(s): T81.30XD - Disruption of wound, unspecified, subsequent encounter Subjective Interval history since last seen: Patient reports that she continues to have a bdominal pain on the lower 1/3 of her incision site, just medial to her ostomy site. She reports that her ostomy output has not changed with use of the opium tincture. She tolerated the PICC line placement well. Exam Const General: cooperative, healthy appearing and comfortable Orientation: alert and oriented x3 Resp Effort & Inspection: normal respiratory effort, no audible wheezes and no cough Auscultation: clear to auscultation bilaterally Cardio Jugular venous pressure: no JVD GI Inspection: normal to inspection and incision Objective Objective Clinical Data: Abnormal lab results 10/02/18 10/02/18 Range/Units 06:41 06:41 RBC 3.82 L (4.00-5.20) m/cumm Hgb 11.2 L (12.0-15.5) g/dL Hct 32.9 L (36.0-46.0) % Chloride 97 L (98-107) mmol/L BUN 20 H D (7-18) mg/dL AST 72 H (15-37) U/L Alkaline Phosphatase 120 H (46-116) U/L Albumin 2.4 L (3.4-5.0) g/dL Vital Signs Temperature 37.2 C 10/02/18 23:35 Temperature Source Tympanic 10/02/18 23:35 Pulse 94 H 10/02/18 23:35 Pulse Rhythm Regular 10/02/18 20:20 Pulse 89 09/30/18 23:50 Respiratory Rate 18 10/02/18 23:35 Respiratory Effort 10/02/18 20:20 Respiratory Depth Normal 10/02/18 20:20 Respiratory Pattern Normal 10/02/18 20:20 Blood Pressure 127/81 10/02/18 23:35 Blood Pressure Mean 85 09/30/18 23:36 Pulse Oximetry 98 10/02/18 23:35 Oxygen Delivery Method Room Air 10/02/18 23:35 Oxygen Flow Rate 0 10/02/18 23:35 Pain Level 7 10/02/18 12:49 Comment 10/01/18 04:15 Intake & Output 10/02/18 10/02/18 10/03/18 11:59 23:59 11:59 Intake Total 2127.917 / 4722.917 2595 / 4722.917 1170 / 1170 Output Total 1850 / 4110 2260 / 4110 1650 / 1650 Balance 277.917 / 612.917 335 / 612.917 -480 / -480 Intake: IV 2107.917 / 3942.917 1835 / 3942.917 1120 / 1120 Oral 20 / 780 760 / 780 50 / 50 Output: Urine 400 / 1050 650 / 1050 600 / 600 Stool 1450 / 3060 1610 / 3060 1050 / 1050 Other: Urine Color Dark Sharmaine Dark Sharmaine Urine Appearance Clear Clear Stool Size Large Large Stool Characteristics Liquid Liquid Voiding Methods Toilet Toilet Laboratory Results WBC 5.68 k/cumm (4.4-10.8) D 10/02/18 06:41 RBC 3.82 m/cumm (4.00-5.20) L 10/02/18 06:41 Hgb 11.2 g/dL (12.0-15.5) L 10/02/18 06:41 Hct 32.9 % (36.0-46.0) L 10/02/18 06:41 MCV 86.1 fL (80-95) 10/02/18 06:41 MCH 29.3 pg (27.0-33.0) 10/02/18 06:41 MCHC 34.0 g/dL (32.0-36.0) 10/02/18 06:41 RDW 12.9 % (11.7-14.6) 10/02/18 06:41 Plt Count 302 x1000/uL (130-400) D 10/02/18 06:41 MPV 9.8 fL (8.0-11.0) 10/02/18 06:41 Immature Gran % 1.1 10/02/18 06:41 Neutrophils % 56.8 10/02/18 06:41 Lymphocytes % 21.7 10/02/18 06:41 Monocytes % 8.3 10/02/18 06:41 Eosinophils % 11.6 10/02/18 06:41 Basophils % 0.5 10/02/18 06:41 Absolute Neutrophils 3.23 k/cumm (1.2-6.7) 10/02/18 06:41 Absolute Lymphocytes 1.23 k/cumm (1.2-3.4) 10/02/18 06:41 Absolute Monocytes 0.47 k/cumm (0.11-0.7) 10/02/18 06:41 Absolute Eosinophils 0.66 k/cumm (0.0-0.7) 10/02/18 06:41 Absolute Basophils 0.03 k/cumm (0.0-0.2) 10/02/18 06:41 APTT 24.4 sec (21.0-31.4) 10/01/18 07:00 Sodium 136 mmol/L (136-145) 10/02/18 06:41 Potassium 3.9 mmol/L (3.5-5.1) 10/02/18 06:41 Chloride 97 mmol/L (98-107) L 10/02/18 06:41 Carbon Dioxide 29.1 mmol/L (21.0-32.0) 10/02/18 06:41 Anion Gap 9.9 mmol/L (3-11) 10/02/18 06:41 BUN 20 mg/dL (7-18) H D 10/02/18 06:41 Creatinine 0.77 mg/dL (0.55-1.02) 10/02/18 06:41 Estimated GFR/1.73 m2 >= 60.00 (mL/min/1.73m2) 10/02/18 06:41 Glucose 92 mg/dL (70-100) 10/02/18 06:41 Lactate 1.1 mmol/l (0.6-1.4) 10/01/18 15:10 Calcium 8.9 mg/dL (8.5-10.1) 10/02/18 06:41 Total Bilirubin 0.7 mg/dL (0.2-1.0) 10/02/18 06:41 AST 72 U/L (15-37) H 10/02/18 06:41 ALT 71 U/L (12-78) 10/02/18 06:41 Alkaline Phosphatase 120 U/L (46-116) H 10/02/18 06:41 Total Protein 7.5 g/dL (6.4-8.2) 10/02/18 06:41 Albumin 2.4 g/dL (3.4-5.0) L 10/02/18 06:41 Documented by User: Maynor Curtis III, DO 10/03/18 10:58
[2018-10-03 08:00] VITALS: BP 128/90; PULSE 95; RESP 20; TEMP 36.9; O2SAT 98
[2018-10-03] MEDS: Normal Saline Flush 10 ML SYR 20 ML IVP ×3 (09:28→20:27)
[2018-10-03] MEDS: CEFEPIME 2 GM in Normal Saline 100 ML IVPB ×2 (11:51→23:12)
[2018-10-03] MEDS: Calcium Polycarbophil 625 MG TAB 1250 MG PO ×3 (12:02→20:27)
--- NOTE | 2018-10-03 13:31 | W.PM.PROGNOT ---
Date of Service Date of service: 10/03/18 Time of Service: 13:31 Assessment and Plan (1) Altered bowel elimination due to intestinal ostomy: Current visit: No Status: Acute Fiber added to diet to hopefully thicken ileostomy output and decrease liquid volume. Regular diet resumed. Hold off on TPN at this time. (2) Abdominal wall dehiscence: Current visit: No Status: Acute Dressing changed. Continue wound care. Qualifiers: Encounter type: subsequent encounter Qualified Code(s): T81.30XD - Disruption of wound, unspecified, subsequent encounter Subjective Interval history since last seen: Patient seen with nurse at bedside. She just ate beets and red jello for lunch with ostomy output which leaked medially from ostomy dressing to midline dressing. Exam Const General: cooperative and no acute distress Orientation: alert Resp Effort & Inspection: normal respiratory effort and able to speak in complete sentences GI Inspection: non-distended Palpation: soft, not firm and no guarding Other: Midline dressing and ostomy appliance removed. Steri-strips are damp and lifting. Steri-strips removed. Benzoin and steri-strips reapplied. Sutures intact. Purulent drainage from wound noted. Stoma powder/paste/ostomy appliance reapplied. Mepilex midline dressing reapplied. Patient tolerated well. Objective Objective Clinical Data: Vital Signs Temperature 36.9 C 10/03/18 08:00 Temperature Source Tympanic 10/03/18 08:00 Pulse 95 H 10/03/18 08:00 Pulse Rhythm Regular 10/02/18 20:20 Pulse 89 09/30/18 23:50 Respiratory Rate 20 10/03/18 08:00 Respiratory Effort 10/02/18 20:20 Respiratory Depth Normal 10/02/18 20:20 Respiratory Pattern Normal 10/02/18 20:20 Blood Pressure 128/90 10/03/18 08:00 Blood Pressure Mean 85 09/30/18 23:36 Pulse Oximetry 98 10/03/18 08:00 Oxygen Delivery Method Room Air 10/03/18 08:00 Oxygen Flow Rate 0 10/03/18 08:00 Pain Level 6 10/03/18 07:55 Comment 10/01/18 04:15 Intake & Output 10/02/18 10/03/18 10/03/18 23:59 11:59 23:59 Intake Total 2595 / 4722.917 2057.75 / 2057.75 Output Total 2260 / 4110 2640 / 2640 Balance 335 / 612.917 -581.25 / -581.25 Intake: IV 1835 / 3942.917 1888.75 / 1888.75 Oral 760 / 780 170 / 170 Output: Urine 650 / 1050 600 / 600 Stool 1610 / 3060 2040 / 2040 Other: Urine Color Dark Sharmaine Dark Sharmaine Urine Appearance Clear Clear Stool Size Large Stool Characteristics Liquid Voiding Methods Toilet Toilet Laboratory Results WBC 5.68 k/cumm (4.4-10.8) D 10/02/18 06:41 RBC 3.82 m/cumm (4.00-5.20) L 10/02/18 06:41 Hgb 11.2 g/dL (12.0-15.5) L 10/02/18 06:41 Hct 32.9 % (36.0-46.0) L 10/02/18 06:41 MCV 86.1 fL (80-95) 10/02/18 06:41 MCH 29.3 pg (27.0-33.0) 10/02/18 06:41 MCHC 34.0 g/dL (32.0-36.0) 10/02/18 06:41 RDW 12.9 % (11.7-14.6) 10/02/18 06:41 Plt Count 302 x1000/uL (130-400) D 10/02/18 06:41 MPV 9.8 fL (8.0-11.0) 10/02/18 06:41 Immature Gran % 1.1 10/02/18 06:41 Neutrophils % 56.8 10/02/18 06:41 Lymphocytes % 21.7 10/02/18 06:41 Monocytes % 8.3 10/02/18 06:41 Eosinophils % 11.6 10/02/18 06:41 Basophils % 0.5 10/02/18 06:41 Absolute Neutrophils 3.23 k/cumm (1.2-6.7) 10/02/18 06:41 Absolute Lymphocytes 1.23 k/cumm (1.2-3.4) 10/02/18 06:41 Absolute Monocytes 0.47 k/cumm (0.11-0.7) 10/02/18 06:41 Absolute Eosinophils 0.66 k/cumm (0.0-0.7) 10/02/18 06:41 Absolute Basophils 0.03 k/cumm (0.0-0.2) 10/02/18 06:41 APTT 24.4 sec (21.0-31.4) 10/01/18 07:00 Sodium 136 mmol/L (136-145) 10/02/18 06:41 Potassium 3.9 mmol/L (3.5-5.1) 10/02/18 06:41 Chloride 97 mmol/L (98-107) L 10/02/18 06:41 Carbon Dioxide 29.1 mmol/L (21.0-32.0) 10/02/18 06:41 Anion Gap 9.9 mmol/L (3-11) 10/02/18 06:41 BUN 20 mg/dL (7-18) H D 10/02/18 06:41 Creatinine 0.77 mg/dL (0.55-1.02) 10/02/18 06:41 Estimated GFR/1.73 m2 >= 60.00 (mL/min/1.73m2) 10/02/18 06:41 Glucose 92 mg/dL (70-100) 10/02/18 06:41 Lactate 1.1 mmol/l (0.6-1.4) 10/01/18 15:10 Calcium 8.9 mg/dL (8.5-10.1) 10/02/18 06:41 Total Bilirubin 0.7 mg/dL (0.2-1.0) 10/02/18 06:41 AST 72 U/L (15-37) H 10/02/18 06:41 ALT 71 U/L (12-78) 10/02/18 06:41 Alkaline Phosphatase 120 U/L (46-116) H 10/02/18 06:41 Total Protein 7.5 g/dL (6.4-8.2) 10/02/18 06:41 Albumin 2.4 g/dL (3.4-5.0) L 10/02/18 06:41
[2018-10-03] MEDS: Lactated Ringers 1,000 ML 75 ML IV (13:41)
--- NOTE | 2018-10-03 15:40 | PDOC.CMPRO ---
- If Service Date Differs Date of service: 10/03/18 Time of Service: 15:40 Care Management Progress Note S/O: Radha is ambulating in the halls when this software writer visits with her this morning. She is doing well, when this software writer visits with her. Radha continues to have a PICC line in place, and is receiving IV antibiotics. A: 48 year old female admitted to [facility] 09/30/18 for Fascial Dehiscence P: Radha will return to her mother's home in [place] when medically ready for discharge; anticipated she will resume VNA/RN supports. She had a PICC placed for TPN and continues to be closely monitored. She will transport via private vehicle with her family when ready.
--- NOTE | 2018-10-03 15:45 | CMPROGNOTE_ITS ---
- If Service Date Differs Date of service: 10/03/18 Time of Service: 15:40 Care Management Progress Note S/O: Radha is ambulating in the halls when this proposal lead writer visits with her this morning. She is doing well, when this proposal lead writer visits with her. Radha continues to have a PICC line in place, and is receiving IV antibiotics. A: 48 year old female admitted to [facility] 09/30/18 for Fascial Dehiscence P: Radha will return to her mother's home in [place] when medically ready for discharge; anticipated she will resume VNA/RN supports. She had a PICC placed for TPN and continues to be closely monitored. She will transport via private vehicle with her family when ready.
[2018-10-03 16:46] VITALS: BP 133/80; PULSE 98; RESP 18; TEMP 37.5; O2SAT 97
--- NOTE | 2018-10-03 23:17 | NUR.NOTE ---
Nursing Note: Patient received from off-going nurse. Patient currently resting in bed, bed is in the low and locked position, side rails up x2, call light within reach.
[2018-10-04 00:30] VITALS: BP 110/68; PULSE 92; RESP 18; TEMP 37; O2SAT 98
[2018-10-04] MEDS: HYDROmorphone 2 MG/ML VIAL IVP ×6 (00:31→21:01)
[2018-10-04] MEDS: Normal Saline Flush 10 ML SYR IVP ×5 (00:33→21:01)
--- NOTE | 2018-10-04 00:44 | NUR.NOTE ---
Nursing Note: Some leaking noted to midline abdominal dressing. Patient would not allow me to change the dressing at this time, but asked if I would just reinforce it for now. I have done as the patient requested with 4x4 gauze.
[2018-10-04] MEDS: Lactated Ringers 1,000 ML 75 ML IV ×2 (01:49→15:57)
[2018-10-04] MEDS: Normal Saline Flush 10 ML SYR 20 ML IVP ×2 (08:41→21:01)
[2018-10-04] MEDS: Calcium Polycarbophil 625 MG TAB 1250 MG PO ×4 (08:41→19:48)
[2018-10-04] MEDS: CEFEPIME 2 GM in Normal Saline 100 ML IVPB (12:43)
--- NOTE | 2018-10-04 13:31 | W.PM.PROGNOT ---
Date of Service Date of service: 10/04/18 Time of Service: 13:32 Assessment and Plan (1) Altered bowel elimination due to intestinal ostomy: Current visit: No Status: Acute Fiber added to diet to hopefully thicken ileostomy output and decrease liquid volume. Regular diet resumed. Hold off on TPN at this time. Will also add scheduled Lomotil. Patient encouraged to take small frequent meals and avoid drinking while eating to see if this will help slow down her small bowel transit. (2) Abdominal wall dehiscence: Current visit: No Status: Acute Dressing changed. Skin intact, wound draining. Continue wound care. Qualifiers: Encounter type: subsequent encounter Qualified Code(s): T81.30XD - Disruption of wound, unspecified, subsequent encounter Subjective Interval history since last seen: Patient notes that ileostomy output was more solid last night. Ostomy bag was changed as she had a urostomy bag in place which was getting clogged. However, output is more liquid again this am. She had tincture of opium with a little bit of grape juice which promptly emptied into her ostomy bag. Ileostomy output recorded at > 4L x 24 hours. Exam Const General: cooperative and no acute distress Orientation: alert and oriented x3 HENMT Head: normocephalic and atraumatic Resp Effort & Inspection: normal respiratory effort and able to speak in complete sentences Cardio Jugular venous pressure: no JVD GI Inspection: non-distended, incision (purulent drainage inferiorly; sutures intact; redressed steristrips/Mepilex) and other (ileostomy redressed with stoma paste and new ostomy appliance) Palpation: soft, not firm, no guarding and no masses Skin General skin exam: no rashes or lesions noted, excoriation(s) (around ileostomy site) and no jaundice Neuro General: alert and oriented x3 Speech: speech normal Objective Objective Clinical Data: Vital Signs Temperature 37 C 10/04/18 00:30 Temperature Source Tympanic 10/04/18 00:30 Pulse 92 H 10/04/18 00:30 Pulse Rhythm Regular 10/03/18 23:37 Pulse 89 09/30/18 23:50 Respiratory Rate 18 10/04/18 00:30 Respiratory Effort Non-Labored 10/03/18 23:37 Respiratory Depth Normal 10/03/18 23:37 Respiratory Pattern Normal 10/03/18 23:37 Blood Pressure 110/68 10/04/18 00:30 Blood Pressure Mean 85 09/30/18 23:36 Pulse Oximetry 98 10/04/18 00:30 Oxygen Delivery Method Room Air 10/04/18 00:30 Oxygen Flow Rate 0 10/04/18 00:30 Pain Level 9 10/04/18 12:34 Comment 10/01/18 04:15 Intake & Output 10/03/18 10/04/18 10/04/18 23:59 11:59 23:59 Intake Total 980 / 3038.75 1000 / 1000 Output Total 3175 / 5815 1250 / 1250 Balance -2195 / -2776.25 -250 / -250 Intake: IV 200 / 2088.75 1000 / 1000 Oral 780 / 950 Output: Urine 750 / 1350 400 / 400 Stool 2425 / 4465 850 / 850 Other: Urine Color Lu Light Sharmaine Urine Appearance Clear Voiding Methods Toilet Laboratory Results WBC 5.68 k/cumm (4.4-10.8) D 10/02/18 06:41 RBC 3.82 m/cumm (4.00-5.20) L 10/02/18 06:41 Hgb 11.2 g/dL (12.0-15.5) L 10/02/18 06:41 Hct 32.9 % (36.0-46.0) L 10/02/18 06:41 MCV 86.1 fL (80-95) 10/02/18 06:41 MCH 29.3 pg (27.0-33.0) 10/02/18 06:41 MCHC 34.0 g/dL (32.0-36.0) 10/02/18 06:41 RDW 12.9 % (11.7-14.6) 10/02/18 06:41 Plt Count 302 x1000/uL (130-400) D 10/02/18 06:41 MPV 9.8 fL (8.0-11.0) 10/02/18 06:41 Immature Gran % 1.1 10/02/18 06:41 Neutrophils % 56.8 10/02/18 06:41 Lymphocytes % 21.7 10/02/18 06:41 Monocytes % 8.3 10/02/18 06:41 Eosinophils % 11.6 10/02/18 06:41 Basophils % 0.5 10/02/18 06:41 Absolute Neutrophils 3.23 k/cumm (1.2-6.7) 10/02/18 06:41 Absolute Lymphocytes 1.23 k/cumm (1.2-3.4) 10/02/18 06:41 Absolute Monocytes 0.47 k/cumm (0.11-0.7) 10/02/18 06:41 Absolute Eosinophils 0.66 k/cumm (0.0-0.7) 10/02/18 06:41 Absolute Basophils 0.03 k/cumm (0.0-0.2) 10/02/18 06:41 APTT 24.4 sec (21.0-31.4) 10/01/18 07:00 Sodium 136 mmol/L (136-145) 10/02/18 06:41 Potassium 3.9 mmol/L (3.5-5.1) 10/02/18 06:41 Chloride 97 mmol/L (98-107) L 10/02/18 06:41 Carbon Dioxide 29.1 mmol/L (21.0-32.0) 10/02/18 06:41 Anion Gap 9.9 mmol/L (3-11) 10/02/18 06:41 BUN 20 mg/dL (7-18) H D 10/02/18 06:41 Creatinine 0.77 mg/dL (0.55-1.02) 10/02/18 06:41 Estimated GFR/1.73 m2 >= 60.00 (mL/min/1.73m2) 10/02/18 06:41 Glucose 92 mg/dL (70-100) 10/02/18 06:41 Lactate 1.1 mmol/l (0.6-1.4) 10/01/18 15:10 Calcium 8.9 mg/dL (8.5-10.1) 10/02/18 06:41 Total Bilirubin 0.7 mg/dL (0.2-1.0) 10/02/18 06:41 AST 72 U/L (15-37) H 10/02/18 06:41 ALT 71 U/L (12-78) 10/02/18 06:41 Alkaline Phosphatase 120 U/L (46-116) H 10/02/18 06:41 Total Protein 7.5 g/dL (6.4-8.2) 10/02/18 06:41 Albumin 2.4 g/dL (3.4-5.0) L 10/02/18 06:41
[2018-10-04 14:20] VITALS: BP 112/73; PULSE 94; RESP 18; TEMP 36.6; O2SAT 96
[2018-10-04 15:30] VITALS: BP 128/82; PULSE 96; RESP 20; TEMP 37.1; O2SAT 96
--- NOTE | 2018-10-04 15:32 | PDOC.CMPRO ---
- If Service Date Differs Date of service: 10/04/18 Time of Service: 15:32 Care Management Progress Note S/O: Radha is lying in bed when this publications writer visits with her today. Radha is watching TV and easily engages in discussion. Radha discusses difficulties around finances, as well as stressors with her job at this time. Radha requested assistance with applying for food stamps. CM has provided her with a 3 squares application. A: 48 year old female admitted to [facility] 09/30/18 for Fascial Dehiscence P: Radha will return to her mother's home in [place] when medically ready for discharge; anticipated she will resume VNA/RN supports. She had a PICC placed for TPN and continues to be closely monitored. She will transport via private vehicle with her family when ready.
--- NOTE | 2018-10-04 15:47 | CMPROGNOTE_ITS ---
- If Service Date Differs Date of service: 10/04/18 Time of Service: 15:32 Care Management Progress Note S/O: Radha is lying in bed when this data analyst report writer visits with her today. Radha is watching TV and easily engages in discussion. Radha discusses difficulties around finances, as well as stressors with her job at this time. Radha requested assistance with applying for food stamps. CM has provided her with a 3 squares application. A: 48 year old female admitted to [facility] 09/30/18 for Fascial Dehiscence P: Radha will return to her mother's home in [place] when medically ready for discharge; anticipated she will resume VNA/RN supports. She had a PICC placed for TPN and continues to be closely monitored. She will transport via private vehicle with her family when ready.
[2018-10-04] MEDS: Ondansetron 4 MG/2 ML VIAL IVP (18:50)
[2018-10-05] MEDS: CEFEPIME 2 GM in Normal Saline 100 ML IVPB ×3 (00:03→23:10)
[2018-10-05 00:16] VITALS: BP 120/76; PULSE 92; RESP 18; TEMP 37.4; O2SAT 97
[2018-10-05] MEDS: HYDROmorphone 2 MG/ML VIAL IVP ×6 (01:37→23:10)
[2018-10-05] MEDS: Lactated Ringers 1,000 ML 75 ML IV ×2 (03:41→13:16)
[2018-10-05 06:10] LABS: Abs Immature Grans 0.02 k/cumm (0.0-0.09); Absolute Basophil Count 0.02 k/cumm (0.0-0.2); Absolute Lymphocyte Count 1.36 k/cumm (1.2-3.4); Absolute Neutrophil Count 2.34 k/cumm (1.2-6.7); Basophils % 0.4; Eosinophils % 14.2; HCT 31.2 % (36.0-46.0); HGB 10.3 g/dL (12.0-15.5); Immature Grans % 0.4; Lymphocytes % 27.5; Mean Corpuscular Hemoglobin 29.4 pg (27.0-33.0); Mean Corpuscular Volume 89.1 fL (80-95); Mean Platelet Volume 9.1 fL (8.0-11.0); Monocytes % 10.1; Neutrophils % 47.4; Platelet Count 270 x1000/uL (130-400); White Blood Cell Count 4.94 k/cumm (4.4-10.8)
[2018-10-05 06:19] LABS: Anion Gap 4.9 mmol/L (3-11); BUN 10 mg/dL (7-18); CO2 34.1 mmol/L (21.0-32.0); CREATININE 0.82 mg/dL (0.55-1.02); Calcium 8.8 mg/dL (8.5-10.1); Chloride 97 mmol/L (98-107); Glucose 103 mg/dL (70-100); Potassium 3.6 mmol/L (3.5-5.1); Sodium 136 mmol/L (136-145)
[2018-10-05 07:55] VITALS: BP 119/77; PULSE 98; RESP 18; TEMP 37; O2SAT 97
[2018-10-05] MEDS: Calcium Polycarbophil 625 MG TAB 1250 MG PO ×2 (08:04→13:16)
[2018-10-05] MEDS: Multivitamin TAB 1 TAB PO (08:05)
[2018-10-05] MEDS: Normal Saline Flush 10 ML SYR 20 ML IVP ×2 (08:06→21:06)
--- NOTE | 2018-10-05 13:26 | PDOC.CMPRO ---
- If Service Date Differs Date of service: 10/05/18 Time of Service: 13:26 Care Management Progress Note S/O: Radha is doing well today, she has the application for [employer] [place] which she will complete. Radha continues to receive IV antibiotics at this time. No change in DC plan. A: 48 year old female admitted to [facility] 09/30/18 for Fascial Dehiscence P: Radha will return to her mother's home in [place] when medically ready for discharge; anticipated she will resume VNA/RN supports. She had a PICC placed for TPN and continues to be closely monitored. She will transport via private vehicle with her family when ready.
--- NOTE | 2018-10-05 13:32 | CMPROGNOTE_ITS ---
- If Service Date Differs Date of service: 10/05/18 Time of Service: 13:26 Care Management Progress Note S/O: Radha is doing well today, she has the application for [employer] [place] which she will complete. Radha continues to receive IV antibiotics at this time. No change in DC plan. A: 48 year old female admitted to [facility] 09/30/18 for Fascial Dehiscence P: Radha will return to her mother's home in [place] when medically ready for discharge; anticipated she will resume VNA/RN supports. She had a PICC placed for TPN and continues to be closely monitored. She will transport via private vehicle with her family when ready.
--- NOTE | 2018-10-05 14:19 | W.PM.PROGNOT ---
Date of Service Date of service: 10/05/18 Time of Service: 14:19 Assessment and Plan (1) Altered bowel elimination due to intestinal ostomy: Current visit: No Status: Acute Fiber added to diet to hopefully thicken ileostomy output and decrease liquid volume. Regular diet resumed. Hold off on TPN at this time. Will also add scheduled Lomotil. Patient encouraged to take small frequent meals and avoid drinking while eating to see if this will help slow down her small bowel transit. Changed Fibercon to Metamucil and scheduled q 6 hours. Changed Lomotil to q 6 hours. Continue tincture of opium. (2) Abdominal wall dehiscence: Current visit: No Status: Acute Continue wound care. Dressing change prn. Qualifiers: Encounter type: subsequent encounter Qualified Code(s): T81.30XD - Disruption of wound, unspecified, subsequent encounter Subjective Interval history since last seen: Patient denies any new complaints. Ostomy appliance has remained intact since yesterday. Still with liquid ostomy output but amount has decreased from 4+ liters/ 24 hours to 2+ liters/24 hours yesterday. She notes feeling a little bloated today. Labs stable. Exam Const General: cooperative and no acute distress Orientation: alert and oriented x3 HENMT Head: normocephalic and atraumatic Eyes Sclera: sclerae normal Resp Effort & Inspection: normal respiratory effort and able to speak in complete sentences Cardio Jugular venous pressure: no JVD GI Inspection: non-distended, incision (Mepilex intact, drainage noted on dressing inferiorly) and other (yellow, liquid output; appliance intact) Palpation: soft, not firm, no guarding, no masses, not rigid and nontender Auscultation: normal bowel sounds Skin General skin exam: no rashes or lesions noted and no jaundice Objective Objective Clinical Data: Abnormal lab results 10/05/18 10/05/18 Range/Units 05:40 05:40 RBC 3.50 L (4.00-5.20) m/cumm Hgb 10.3 L (12.0-15.5) g/dL Hct 31.2 L (36.0-46.0) % Chloride 97 L (98-107) mmol/L Carbon Dioxide 34.1 H (21.0-32.0) mmol/L Glucose 103 H (70-100) mg/dL Vital Signs Temperature 37 C 10/05/18 07:55 Temperature Source Tympanic 10/05/18 07:55 Pulse 98 H 10/05/18 07:55 Pulse Rhythm Regular 10/05/18 08:08 Pulse 89 09/30/18 23:50 Respiratory Rate 18 10/05/18 07:55 Respiratory Effort Non-Labored 10/05/18 08:08 Respiratory Depth Normal 10/05/18 08:08 Respiratory Pattern Normal 10/04/18 23:13 Blood Pressure 119/77 10/05/18 07:55 Blood Pressure Mean 85 09/30/18 23:36 Pulse Oximetry 97 10/05/18 07:55 Oxygen Delivery Method Room Air 10/05/18 07:55 Oxygen Flow Rate 0 10/05/18 07:55 Pain Level 4 10/05/18 07:55 Comment 10/01/18 04:15 Intake & Output 10/04/18 10/05/18 10/05/18 23:59 11:59 23:59 Intake Total 2382.5 / 3622.5 807.5 / 1766.25 958.75 / 1766.25 Output Total 1975 / 3225 1400 / 1850 450 / 1850 Balance 407.5 / 397.5 -592.5 / -83.75 508.75 / -83.75 Intake: IV 1662.5 / 2662.5 447.5 / 1166.25 718.75 / 1166.25 Oral 720 / 960 360 / 600 240 / 600 Output: Urine 200 / 600 Stool 1775 / 2625 1400 / 1850 450 / 1850 Other: Urine Color Light Sharmaine Urine Appearance Clear Urine Odor Strong Comment Voided in toilet. voiding independently in toilet Voiding Methods Toilet Laboratory Results WBC 4.94 k/cumm (4.4-10.8) 10/05/18 05:40 RBC 3.50 m/cumm (4.00-5.20) L 10/05/18 05:40 Hgb 10.3 g/dL (12.0-15.5) L 10/05/18 05:40 Hct 31.2 % (36.0-46.0) L 10/05/18 05:40 MCV 89.1 fL (80-95) 10/05/18 05:40 MCH 29.4 pg (27.0-33.0) 10/05/18 05:40 MCHC 33.0 g/dL (32.0-36.0) 10/05/18 05:40 RDW 13.0 % (11.7-14.6) 10/05/18 05:40 Plt Count 270 x1000/uL (130-400) 10/05/18 05:40 MPV 9.1 fL (8.0-11.0) 10/05/18 05:40 Immature Gran % 0.4 10/05/18 05:40 Neutrophils % 47.4 10/05/18 05:40 Lymphocytes % 27.5 10/05/18 05:40 Monocytes % 10.1 10/05/18 05:40 Eosinophils % 14.2 10/05/18 05:40 Basophils % 0.4 10/05/18 05:40 Absolute Neutrophils 2.34 k/cumm (1.2-6.7) 10/05/18 05:40 Absolute Lymphocytes 1.36 k/cumm (1.2-3.4) 10/05/18 05:40 Absolute Monocytes 0.50 k/cumm (0.11-0.7) 10/05/18 05:40 Absolute Eosinophils 0.70 k/cumm (0.0-0.7) 10/05/18 05:40 Absolute Basophils 0.02 k/cumm (0.0-0.2) 10/05/18 05:40 APTT 24.4 sec (21.0-31.4) 10/01/18 07:00 Sodium 136 mmol/L (136-145) 10/05/18 05:40 Potassium 3.6 mmol/L (3.5-5.1) 10/05/18 05:40 Chloride 97 mmol/L (98-107) L 10/05/18 05:40 Carbon Dioxide 34.1 mmol/L (21.0-32.0) H 10/05/18 05:40 Anion Gap 4.9 mmol/L (3-11) 10/05/18 05:40 BUN 10 mg/dL (7-18) D 10/05/18 05:40 Creatinine 0.82 mg/dL (0.55-1.02) 10/05/18 05:40 Estimated GFR/1.73 m2 >= 60.00 (mL/min/1.73m2) 10/05/18 05:40 Glucose 103 mg/dL (70-100) H 10/05/18 05:40 Lactate 1.1 mmol/l (0.6-1.4) 10/01/18 15:10 Calcium 8.8 mg/dL (8.5-10.1) 10/05/18 05:40 Total Bilirubin 0.7 mg/dL (0.2-1.0) 10/02/18 06:41 AST 72 U/L (15-37) H 10/02/18 06:41 ALT 71 U/L (12-78) 10/02/18 06:41 Alkaline Phosphatase 120 U/L (46-116) H 10/02/18 06:41 Total Protein 7.5 g/dL (6.4-8.2) 10/02/18 06:41 Albumin 2.4 g/dL (3.4-5.0) L 10/02/18 06:41
[2018-10-05] MEDS: Psyllium PKT 1 EACH PO ×2 (15:40→21:06)
[2018-10-05 15:42] VITALS: BP 131/80; PULSE 89; RESP 20; TEMP 37.4; O2SAT 93
[2018-10-05] MEDS: Fluconazole 150 MG TAB PO (15:53)
[2018-10-05] MEDS: Normal Saline Flush 10 ML SYR IVP (23:10)
[2018-10-06] MEDS: HYDROmorphone 2 MG/ML VIAL IVP ×5 (03:23→20:58)
[2018-10-06] MEDS: Normal Saline Flush 10 ML SYR IVP ×4 (03:24→20:58)
[2018-10-06 07:25] VITALS: BP 120/79; PULSE 100; RESP 18; TEMP 37.1; O2SAT 96
--- NOTE | 2018-10-06 07:34 | W.PM.PROGNOT ---
Date of Service Date of service: 10/06/18 Time of Service: 07:05 Assessment and Plan (1) Altered bowel elimination due to intestinal ostomy: Current visit: No Status: Acute A\\ Still with increased ostomy output which puts her at risk for dehydration P\\ Encourage high protein diet Will ask assembler cards and announcements for input Add Cholestyramine Subjective Interval history since last seen: Feeling OK. No N/V. Ostomy still putting out 3 L per day. She is on Metamucil, lomotil and tincture of opium. Not wanting to eat as that increases output. Discussed with her importance of her eating for nutrition but also so we can change her medications as needed to decrease output. Exam Resp Effort & Inspection: normal respiratory effort Auscultation: clear to auscultation bilaterally Cardio Rate: regular rate Rhythm: regular rhythm GI Inspection: incision (small amount of discharge from bottom of her wound) Palpation: soft and nontender Auscultation: normal bowel sounds and other (ostomy looks healthy. Liquid green stool.) Objective Objective Clinical Data: Vital Signs Temperature 99.3 F 10/05/18 15:42 Temperature Source Tympanic 10/05/18 15:42 Pulse 89 10/05/18 15:42 Pulse Rhythm Regular 10/05/18 23:31 Pulse 89 09/30/18 23:50 Respiratory Rate 20 10/05/18 15:42 Respiratory Effort Non-Labored 10/05/18 23:31 Respiratory Depth Normal 10/05/18 23:31 Respiratory Pattern Normal 10/05/18 23:31 Blood Pressure 131/80 10/05/18 15:42 Blood Pressure Mean 85 09/30/18 23:36 Pulse Oximetry 93 L 10/05/18 15:42 Oxygen Delivery Method Room Air 10/05/18 15:42 Oxygen Flow Rate 0 10/05/18 15:42 Pain Level 8 10/06/18 03:23 Comment 10/01/18 04:15 Intake & Output 10/05/18 10/05/18 10/06/18 11:59 23:59 11:59 Intake Total 807.5 / 3080.00 2272.50 / 3080.00 366.25 / 366.25 Output Total 1400 / 3475 2075 / 3475 650 / 650 Balance -592.5 / -395.00 197.50 / -395.00 -283.75 / -283.75 Intake: IV 447.5 / 1999.00 1552.50 / 1999.00 366.25 / 366.25 Oral 360 / 1080 720 / 1080 Output: Stool 1400 / 3475 2075 / 3475 650 / 650 Other: Urine Appearance Clear Comment voiding independently in toilet voiding independently Voiding Methods Toilet Laboratory Results WBC 4.94 k/cumm (4.4-10.8) 10/05/18 05:40 RBC 3.50 m/cumm (4.00-5.20) L 10/05/18 05:40 Hgb 10.3 g/dL (12.0-15.5) L 10/05/18 05:40 Hct 31.2 % (36.0-46.0) L 10/05/18 05:40 MCV 89.1 fL (80-95) 10/05/18 05:40 MCH 29.4 pg (27.0-33.0) 10/05/18 05:40 MCHC 33.0 g/dL (32.0-36.0) 10/05/18 05:40 RDW 13.0 % (11.7-14.6) 10/05/18 05:40 Plt Count 270 x1000/uL (130-400) 10/05/18 05:40 MPV 9.1 fL (8.0-11.0) 10/05/18 05:40 Immature Gran % 0.4 10/05/18 05:40 Neutrophils % 47.4 10/05/18 05:40 Lymphocytes % 27.5 10/05/18 05:40 Monocytes % 10.1 10/05/18 05:40 Eosinophils % 14.2 10/05/18 05:40 Basophils % 0.4 10/05/18 05:40 Absolute Neutrophils 2.34 k/cumm (1.2-6.7) 10/05/18 05:40 Absolute Lymphocytes 1.36 k/cumm (1.2-3.4) 10/05/18 05:40 Absolute Monocytes 0.50 k/cumm (0.11-0.7) 10/05/18 05:40 Absolute Eosinophils 0.70 k/cumm (0.0-0.7) 10/05/18 05:40 Absolute Basophils 0.02 k/cumm (0.0-0.2) 10/05/18 05:40 APTT 24.4 sec (21.0-31.4) 10/01/18 07:00 Sodium 136 mmol/L (136-145) 10/05/18 05:40 Potassium 3.6 mmol/L (3.5-5.1) 10/05/18 05:40 Chloride 97 mmol/L (98-107) L 10/05/18 05:40 Carbon Dioxide 34.1 mmol/L (21.0-32.0) H 10/05/18 05:40 Anion Gap 4.9 mmol/L (3-11) 10/05/18 05:40 BUN 10 mg/dL (7-18) D 10/05/18 05:40 Creatinine 0.82 mg/dL (0.55-1.02) 10/05/18 05:40 Estimated GFR/1.73 m2 >= 60.00 (mL/min/1.73m2) 10/05/18 05:40 Glucose 103 mg/dL (70-100) H 10/05/18 05:40 Lactate 1.1 mmol/l (0.6-1.4) 10/01/18 15:10 Calcium 8.8 mg/dL (8.5-10.1) 10/05/18 05:40 Total Bilirubin 0.7 mg/dL (0.2-1.0) 10/02/18 06:41 AST 72 U/L (15-37) H 10/02/18 06:41 ALT 71 U/L (12-78) 10/02/18 06:41 Alkaline Phosphatase 120 U/L (46-116) H 10/02/18 06:41 Total Protein 7.5 g/dL (6.4-8.2) 10/02/18 06:41 Albumin 2.4 g/dL (3.4-5.0) L 10/02/18 06:41
[2018-10-06] MEDS: Multivitamin TAB 1 TAB PO (08:15)
[2018-10-06] MEDS: Psyllium PKT 1 EACH PO ×4 (08:16→19:58)
[2018-10-06] MEDS: Normal Saline Flush 10 ML SYR 20 ML IVP ×2 (08:16→19:58)
[2018-10-06] MEDS: Lactated Ringers 1,000 ML 75 ML IV ×2 (08:29→21:39)
[2018-10-06] MEDS: Cholestyramine/Aspartame PKT 1 EACH PO ×3 (11:01→19:57)
--- NOTE | 2018-10-06 11:37 | PDOC.CMPRO ---
- If Service Date Differs Date of service: 10/06/18 Time of Service: 11:37 Care Management Progress Note S/O: Radha is lying in bed when this screenplay writer visits this morning. She is pleasant and receptive to discussion. Radha states that she was able to get some rest last night. Radha reports that the provider that she met with today has told her that she should try to eat as she does at home, Radha states that she is having her bring her something to eat today for a break from hospital food. Gayle RN, met with Radha to assist with emptying ostomy as this screenplay writer was leaving the room. SUSAN did speak with [facility] to update that Radha remains hospitalized, and there is no known date for DC at this time. A: 48 year old female admitted to [facility] 09/30/18 for Fascial Dehiscence P: Radha will return to her mother's home in [place] when medically ready for discharge; anticipated she will resume VNA/RN supports. She had a PICC placed for TPN and continues to be closely monitored. She will transport via private vehicle with her family when ready.
--- NOTE | 2018-10-06 11:40 | CMPROGNOTE_ITS ---
- If Service Date Differs Date of service: 10/06/18 Time of Service: 11:37 Care Management Progress Note S/O: Radha is lying in bed when this teletypewriter operator visits this morning. She is pleasant and receptive to discussion. Radha states that she was able to get some rest last night. Radha reports that the provider that she met with today has told her that she should try to eat as she does at home, Radha states that she is having her bring her something to eat today for a break from h ospital food. Gayle RN, met with Radha to assist with emptying ostomy as this teletypewriter operator was leaving the room. SUSAN did speak with [facility] to update that Radha remains hospitalized, and there is no known date for DC at this time. A: 48 year old female admitted to [facility] 09/30/18 for Fascial Dehiscence P: Radha will return to her mother's home in [place] when medically ready for discharge; anticipated she will resume VNA/RN supports. She had a PICC placed for TPN and continues to be closely monitored. She will transport via private vehicle with her family when ready.
[2018-10-06] MEDS: CEFEPIME 2 GM in Normal Saline 100 ML IVPB ×2 (12:34→23:01)
[2018-10-06 15:40] VITALS: BP 128/80; PULSE 91; RESP 19; TEMP 36.3; O2SAT 99
--- NOTE | 2018-10-06 16:55 | W.PM.PROGNOT ---
Date of Service Date of service: 10/06/18 Time of Service: 16:55 Assessment and Plan (1) Altered bowel elimination due to intestinal ostomy: Current visit: No Status: Acute A\\ Still with >3L of ostomy output. P\\ Continue to increase po intake with rice, bananas, toast, pasta, peanut butter to try and thicken the stools Will check for C. Diff to make sure that is not why she is having such a high output Pedialyte for electrolytes Subjective Interval history since last seen: Doing OK. Eating a little more. Has seen the program director/morning show host regrading foods to eat to try and thicken her stool. Exam GI Inspection: incision (small amount of drainage at the bottom. No erythema) and other (ostomy is pink) Palpation: soft Objective Objective Clinical Data: Vital Signs Temperature 97.3 F L 10/06/18 15:40 Temperature Source Tympanic 10/06/18 15:40 Pulse 91 H 10/06/18 15:40 Pulse Rhythm Regular 10/06/18 15:40 Pulse 89 09/30/18 23:50 Respiratory Rate 19 10/06/18 15:40 Respiratory Effort Non-Labored 10/06/18 15:40 Respiratory Depth Normal 10/06/18 15:40 Respiratory Pattern Normal 10/06/18 15:40 Blood Pressure 128/80 10/06/18 15:40 Blood Pressure Mean 85 09/30/18 23:36 Pulse Oximetry 99 10/06/18 15:40 Oxygen Delivery Method Room Air 10/06/18 15:40 Oxygen Flow Rate 0 10/06/18 15:40 Pain Level 6 10/06/18 16:38 Comment 10/01/18 04:15 Intake & Output 10/05/18 10/06/18 10/06/18 23:59 11:59 23:59 Intake Total 2272.50 / 3080.00 366.25 / 706.25 340 / 706.25 Output Total 2074 / 3475 1900 / 2750 850 / 2750 Balance 197.50 / -395.00 -1533.75 / -2043.75 -510 / -2043.75 Intake: IV 1552.50 / 2000.00 366.25 / 466.25 100 / 466.25 Oral 720 / 1080 240 / 240 Output: Urine 350 / 650 300 / 650 Stool 2075 / 3475 1550 / 2100 550 / 2100 Other: Urine Color Dark Rohit Urine Appearance Clear Clear Clear Urine Odor Normal Normal Comment voiding independently med rohit Voiding Methods Toilet Toilet Laboratory Results WBC 4.94 k/cumm (4.4-10.8) 10/05/18 05:40 RBC 3.50 m/cumm (4.00-5.20) L 10/05/18 05:40 Hgb 10.3 g/dL (12.0-15.5) L 10/05/18 05:40 Hct 31.2 % (36.0-46.0) L 10/05/18 05:40 MCV 89.1 fL (80-95) 10/05/18 05:40 MCH 29.4 pg (27.0-33.0) 10/05/18 05:40 MCHC 33.0 g/dL (32.0-36.0) 10/05/18 05:40 RDW 13.0 % (11.7-14.6) 10/05/18 05:40 Plt Count 270 x1000/uL (130-400) 10/05/18 05:40 MPV 9.1 fL (8.0-11.0) 10/05/18 05:40 Immature Gran % 0.4 10/05/18 05:40 Neutrophils % 47.4 10/05/18 05:40 Lymphocytes % 27.5 10/05/18 05:40 Monocytes % 10.1 10/05/18 05:40 Eosinophils % 14.2 10/05/18 05:40 Basophils % 0.4 10/05/18 05:40 Absolute Neutrophils 2.34 k/cumm (1.2-6.7) 10/05/18 05:40 Absolute Lymphocytes 1.36 k/cumm (1.2-3.4) 10/05/18 05:40 Absolute Monocytes 0.50 k/cumm (0.11-0.7) 10/05/18 05:40 Absolute Eosinophils 0.70 k/cumm (0.0-0.7) 10/05/18 05:40 Absolute Basophils 0.02 k/cumm (0.0-0.2) 10/05/18 05:40 APTT 24.4 sec (21.0-31.4) 10/01/18 07:00 Sodium 136 mmol/L (136-145) 10/05/18 05:40 Potassium 3.6 mmol/L (3.5-5.1) 10/05/18 05:40 Chloride 97 mmol/L (98-107) L 10/05/18 05:40 Carbon Dioxide 34.1 mmol/L (21.0-32.0) H 10/05/18 05:40 Anion Gap 4.9 mmol/L (3-11) 10/05/18 05:40 BUN 10 mg/dL (7-18) D 10/05/18 05:40 Creatinine 0.82 mg/dL (0.55-1.02) 10/05/18 05:40 Estimated GFR/1.73 m2 >= 60.00 (mL/min/1.73m2) 10/05/18 05:40 Glucose 103 mg/dL (70-100) H 10/05/18 05:40 Lactate 1.1 mmol/l (0.6-1.4) 10/01/18 15:10 Calcium 8.8 mg/dL (8.5-10.1) 10/05/18 05:40 Total Bilirubin 0.7 mg/dL (0.2-1.0) 10/02/18 06:41 AST 72 U/L (15-37) H 10/02/18 06:41 ALT 71 U/L (12-78) 10/02/18 06:41 Alkaline Phosphatase 120 U/L (46-116) H 10/02/18 06:41 Total Protein 7.5 g/dL (6.4-8.2) 10/02/18 06:41 Albumin 2.4 g/dL (3.4-5.0) L 10/02/18 06:41
[2018-10-06] MEDS: Electrolyte SOLUTION,ORAL 1000 ML BTL PO (19:57)
[2018-10-06 23:06] VITALS: BP 106/69; PULSE 67; RESP 15; TEMP 36.6; O2SAT 97
[2018-10-07] MEDS: HYDROmorphone 2 MG/ML VIAL IVP ×5 (01:03→21:30)
[2018-10-07] MEDS: Normal Saline Flush 10 ML SYR IVP ×5 (01:03→21:30)
[2018-10-07] MEDS: Cholestyramine/Aspartame PKT 1 EACH PO ×4 (06:32→20:02)
--- NOTE | 2018-10-07 07:17 | W.PM.PROGNOT ---
Documented by User: KUSHAL Jones 10/07/18 07:25 Date of Service Date of service: 10/07/18 Time of Service: 07:17 Assessment and Plan (1) Altered bowel elimination due to intestinal ostomy: Current visit: No Status: Acute A// Continues with high output from her ileostomy. Nutrition consult performed yesterday, added Adrian. P// Continue with soluble fiber, lomotil, opium tincture and Adrian. Will add Ranitidine 150mg PO Q12Hr to treat hypersecretion. Subjective Interval history since last seen: Feeling pretty good today. Reports continued discomfort of the lower portion of her midline incision. It's draining some really gross stuff. She has been tolerating her diet and has been drinking pedi-lyte. She is voiding okay. Continues with high output from her ileostomy. Exam Const General: cooperative, healthy appearing and comfortable Orientation: alert and oriented x3 Resp Effort & Inspection: normal respiratory effort, no audible wheezes and no cough GI Inspection: normal to inspection and non-distended Objective Objective Clinical Data: Vital Signs Temperature 36.6 C 10/06/18 23:06 Temperature Source Tympanic 10/06/18 23:06 Pulse 67 10/06/18 23:06 Pulse Rhythm Regular 10/06/18 21:58 Pulse 89 09/30/18 23:50 Respiratory Rate 15 10/06/18 23:06 Respiratory Effort Non-Labored 10/06/18 21:58 Respiratory Depth Normal 10/06/18 21:58 Respiratory Pattern Normal 10/06/18 21:58 Blood Pressure 106/69 10/06/18 23:06 Blood Pressure Mean 85 09/30/18 23:36 Pulse Oximetry 97 10/06/18 23:06 Oxygen Delivery Method Room Air 10/06/18 23:06 Oxygen Flow Rate 0 10/06/18 23:06 Pain Level 8 10/06/18 20:58 Comment 10/01/18 04:15 Intake & Output 10/06/18 10/06/18 10/07/18 11:59 23:59 11:59 Intake Total 366.25 / 2275.00 1908.75 / 2275.00 740 / 740 Output Total 1900 / 4500 2600 / 4500 500 / 500 Balance -1533.75 / -2225.00 -691.25 / -2225.00 240 / 240 Intake: IV 366.25 / 1675.00 1308.75 / 1675.00 50 / 50 Oral 600 / 600 690 / 690 Output: Urine 350 / 1000 650 / 1000 Stool 1550 / 3500 1950 / 3500 500 / 500 Other: Urine Color Dark Rohit Dark Rohit Urine Appearance Clear Clear Urine Odor Normal Normal Comment med rohit Voiding Methods Toilet Toilet Laboratory Results WBC 4.94 k/cumm (4.4-10.8) 10/05/18 05:40 RBC 3.50 m/cumm (4.00-5.20) L 10/05/18 05:40 Hgb 10.3 g/dL (12.0-15.5) L 10/05/18 05:40 Hct 31.2 % (36.0-46.0) L 10/05/18 05:40 MCV 89.1 fL (80-95) 10/05/18 05:40 MCH 29.4 pg (27.0-33.0) 10/05/18 05:40 MCHC 33.0 g/dL (32.0-36.0) 10/05/18 05:40 RDW 13.0 % (11.7-14.6) 10/05/18 05:40 Plt Count 270 x1000/uL (130-400) 10/05/18 05:40 MPV 9.1 fL (8.0-11.0) 10/05/18 05:40 Immature Gran % 0.4 10/05/18 05:40 Neutrophils % 47.4 10/05/18 05:40 Lymphocytes % 27.5 10/05/18 05:40 Monocytes % 10.1 10/05/18 05:40 Eosinophils % 14.2 10/05/18 05:40 Basophils % 0.4 10/05/18 05:40 Absolute Neutrophils 2.34 k/cumm (1.2-6.7) 10/05/18 05:40 Absolute Lymphocytes 1.36 k/cumm (1.2-3.4) 10/05/18 05:40 Absolute Monocytes 0.50 k/cumm (0.11-0.7) 10/05/18 05:40 Absolute Eosinophils 0.70 k/cumm (0.0-0.7) 10/05/18 05:40 Absolute Basophils 0.02 k/cumm (0.0-0.2) 10/05/18 05:40 APTT 24.4 sec (21.0-31.4) 10/01/18 07:00 Sodium 136 mmol/L (136-145) 10/05/18 05:40 Potassium 3.6 mmol/L (3.5-5.1) 10/05/18 05:40 Chloride 97 mmol/L (98-107) L 10/05/18 05:40 Carbon Dioxide 34.1 mmol/L (21.0-32.0) H 10/05/18 05:40 Anion Gap 4.9 mmol/L (3-11) 10/05/18 05:40 BUN 10 mg/dL (7-18) D 10/05/18 05:40 Creatinine 0.82 mg/dL (0.55-1.02) 10/05/18 05:40 Estimated GFR/1.73 m2 >= 60.00 (mL/min/1.73m2) 10/05/18 05:40 Glucose 103 mg/dL (70-100) H 10/05/18 05:40 Lactate 1.1 mmol/l (0.6-1.4) 10/01/18 15:10 Calcium 8.8 mg/dL (8.5-10.1) 10/05/18 05:40 Total Bilirubin 0.7 mg/dL (0.2-1.0) 10/02/18 06:41 AST 72 U/L (15-37) H 10/02/18 06:41 ALT 71 U/L (12-78) 10/02/18 06:41 Alkaline Phosphatase 120 U/L (46-116) H 10/02/18 06:41 Total Protein 7.5 g/dL (6.4-8.2) 10/02/18 06:41 Albumin 2.4 g/dL (3.4-5.0) L 10/02/18 06:41 Documented by User: Ayala Mittal MD 10/07/18 08:50 Assessment and Plan (1) Altered bowel elimination due to intestinal ostomy: Current visit: No Status: Acute A\\ Continue high ileostomy output. Kimberly is working in regards to dehydration Wound with discharge. NO fevers and no erythema P\\ Continue with tincture of opium, lomotil, Cholestyramine, and metamucil C. Diff culture pending Start H2 viola to see if that helps decrease output as well. Wound- start irrigating TID with sterile saline
[2018-10-07 07:35] VITALS: BP 104/72; PULSE 94; RESP 18; TEMP 36.6; O2SAT 98
[2018-10-07 07:46] LABS: ALT 67 U/L (12-78); AST 46 U/L (15-37); Albumin 2.5 g/dL (3.4-5.0); Alkaline Phosphatase 91 U/L (46-116); Anion Gap 5.2 mmol/L (3-11); BUN 10 mg/dL (7-18); Bilirubin, Total 0.8 mg/dL (0.2-1.0); CO2 34.8 mmol/L (21.0-32.0); CREATININE 0.76 mg/dL (0.55-1.02); Calcium 8.9 mg/dL (8.5-10.1); Chloride 99 mmol/L (98-107); Glucose 111 mg/dL (70-100); Potassium 3.4 mmol/L (3.5-5.1); Sodium 139 mmol/L (136-145); Total Protein 7.4 g/dL (6.4-8.2)
[2018-10-07] MEDS: Psyllium PKT 1 EACH PO ×4 (08:09→20:02)
[2018-10-07] MEDS: Multivitamin TAB 1 TAB PO (08:09)
[2018-10-07] MEDS: Insulin Aspart 300 UNITS/3 ML PEN SC (08:10)
[2018-10-07] MEDS: Normal Saline Flush 10 ML SYR 20 ML IVP ×2 (08:11→20:02)
--- NOTE | 2018-10-07 10:22 | W.NUTRFU ---
Date of service: 10/06/18 Time of Service: 16:00 Nutritional Follow up NOTE: See full assessment 10/02/18. Provided recommendations as noted in provider notes to decrease ostomy output. Met with Lucretia to review starting Adrian twice daily as well as reviewing her menu and her menu choices. She will order off the surgical soft menu and we will correct it for carbohydrate counting as well. Lucretia verbalized a good understanding of the rationale for the nutrition therapy as well as the Adrian. Will continue to monitor her progress. Please weigh patient daily on this admission given that she presented in poor nutritional status to help us best evaluate her nutritional and fluid status and adjust her nutrition care plan accordingly. Thank you for the consult. Time Spent in Nutritional Counseling and Treatment: ROM
--- NOTE | 2018-10-07 11:38 | CMPROGNOTE_ITS ---
Care Management Progress Note S/O: Radha continues to make progress toward discharge; she is benefitting from ongoing ostomy teaching and nutrition recommendations-interventions as needed. CM will continue to follow. No change in overall plan. A: 48 year old female admitted to [facility] 09/30/18 for Fascial Dehiscence P: Radha will return to her mother's home in [place] when medically ready for discharge; anticipated she will resume VNA/RN supports. She had a PICC placed for TPN and continues to be closely monitored. She will transport via private vehicle with her family when ready.
--- NOTE | 2018-10-07 11:41 | W.NUTRFU ---
Date of service: 10/07/18 Time of Service: 11:41 Nutritional Follow up NOTE: Of note, ostomy output so far today is 900 ml. Yesterday at this time it was 1450 ml. Will continue to follow progress. Will monitor output and weight (please weigh patient) and will adjust nutrition care plan accordingly. Time Spent in Nutritional Counseling and Treatment: NA
[2018-10-07] MEDS: CEFEPIME 2 GM in Normal Saline 100 ML IVPB ×2 (12:12→23:24)
[2018-10-07] MEDS: Potassium Chloride 20 MEQ TABCR 40 MEQ PO (13:44)
[2018-10-07] MEDS: Electrolyte SOLUTION,ORAL 1000 ML BTL PO (15:55)
[2018-10-07 16:00] VITALS: BP 115/76; PULSE 98; RESP 20; TEMP 36.8; O2SAT 99
--- NOTE | 2018-10-07 16:06 | W.PM.PROGNOT ---
Date of Service Date of service: 10/07/18 Time of Service: 16:06 Assessment and Plan (1) Altered bowel elimination due to intestinal ostomy: Current visit: No Status: Acute A\\ ileostomy output is starting to slow down. C. Diff negative P\\ Will try to D/C fluids tomorrow Will try to D/C the tincture of opium as I am not sure that was working. Hopefully be able to discharge prior to the weekend. Subjective Interval history since last seen: Doing well. Stool output is slowing down and thickening up. Exam GI Auscultation: normal bowel sounds Other: ileostomy is pink. Some more formed stool noted. Objective Objective Clinical Data: Abnormal lab results 10/07/18 Range/Units 06:30 Potassium 3.4 L (3.5-5.1) mmol/L Carbon Dioxide 34.8 H (21.0-32.0) mmol/L Glucose 111 H (70-100) mg/dL AST 46 H (15-37) U/L Albumin 2.5 L (3.4-5.0) g/dL Vital Signs Temperature 97.9 F 10/07/18 07:35 Temperature Source Temporal Artery Scan 10/07/18 07:35 Pulse 94 H 10/07/18 07:35 Pulse Rhythm Regular 10/07/18 07:42 Pulse 89 09/30/18 23:50 Respiratory Rate 18 10/07/18 07:35 Respiratory Effort Non-Labored 10/07/18 07:42 Respiratory Depth Normal 10/07/18 07:42 Respiratory Pattern Normal 10/07/18 07:42 Blood Pressure 104/72 10/07/18 07:35 Blood Pressure Mean 85 09/30/18 23:36 Pulse Oximetry 98 10/07/18 07:35 Oxygen Delivery Method Room Air 10/07/18 07:35 Oxygen Flow Rate 0 10/07/18 07:35 Pain Level 8 10/07/18 12:39 Comment 10/01/18 04:15 Intake & Output 10/06/18 10/07/18 10/07/18 23:59 11:59 23:59 Intake Total 1908.75 / 2275.00 1120 / 2378.75 1258.75 / 2378.75 Output Total 2600 / 4500 800 / 1700 900 / 1700 Balance -691.25 / -2225.00 320 / 678.75 358.75 / 678.75 Intake: IV 1308.75 / 1675.00 70 / 1088.75 1018.75 / 1088.75 Oral 600 / 600 1050 / 1290 240 / 1290 Output: Urine 650 / 1000 500 / 500 Stool 1950 / 3500 800 / 1200 400 / 1200 Other: Urine Color Dark Rohit Dark Rohit Urine Appearance Clear Clear Urine Odor Normal Normal Comment med rohit Pt voiding ad claudia in toilet. Denies sx. Second void of morning. First dumped prior to measurement. Voiding Methods Toilet Toilet Toilet Laboratory Results WBC 4.94 k/cumm (4.4-10.8) 10/05/18 05:40 RBC 3.50 m/cumm (4.00-5.20) L 10/05/18 05:40 Hgb 10.3 g/dL (12.0-15.5) L 10/05/18 05:40 Hct 31.2 % (36.0-46.0) L 10/05/18 05:40 MCV 89.1 fL (80-95) 10/05/18 05:40 MCH 29.4 pg (27.0-33.0) 10/05/18 05:40 MCHC 33.0 g/dL (32.0-36.0) 10/05/18 05:40 RDW 13.0 % (11.7-14.6) 10/05/18 05:40 Plt Count 270 x1000/uL (130-400) 10/05/18 05:40 MPV 9.1 fL (8.0-11.0) 10/05/18 05:40 Immature Gran % 0.4 10/05/18 05:40 Neutrophils % 47.4 10/05/18 05:40 Lymphocytes % 27.5 10/05/18 05:40 Monocytes % 10.1 10/05/18 05:40 Eosinophils % 14.2 10/05/18 05:40 Basophils % 0.4 10/05/18 05:40 Absolute Neutrophils 2.34 k/cumm (1.2-6.7) 10/05/18 05:40 Absolute Lymphocytes 1.36 k/cumm (1.2-3.4) 10/05/18 05:40 Absolute Monocytes 0.50 k/cumm (0.11-0.7) 10/05/18 05:40 Absolute Eosinophils 0.70 k/cumm (0.0-0.7) 10/05/18 05:40 Absolute Basophils 0.02 k/cumm (0.0-0.2) 10/05/18 05:40 APTT 24.4 sec (21.0-31.4) 10/01/18 07:00 Sodium 139 mmol/L (136-145) 10/07/18 06:30 Potassium 3.4 mmol/L (3.5-5.1) L 10/07/18 06:30 Chloride 99 mmol/L (98-107) 10/07/18 06:30 Carbon Dioxide 34.8 mmol/L (21.0-32.0) H 10/07/18 06:30 Anion Gap 5.2 mmol/L (3-11) 10/07/18 06:30 BUN 10 mg/dL (7-18) 10/07/18 06:30 Creatinine 0.76 mg/dL (0.55-1.02) 10/07/18 06:30 Estimated GFR/1.73 m2 >= 60.00 (mL/min/1.73m2) 10/07/18 06:30 Glucose 111 mg/dL (70-100) H 10/07/18 06:30 Lactate 1.1 mmol/l (0.6-1.4) 10/01/18 15:10 Calcium 8.9 mg/dL (8.5-10.1) 10/07/18 06:30 Total Bilirubin 0.8 mg/dL (0.2-1.0) 10/07/18 06:30 AST 46 U/L (15-37) H 10/07/18 06:30 ALT 67 U/L (12-78) 10/07/18 06:30 Alkaline Phosphatase 91 U/L (46-116) 10/07/18 06:30 Total Protein 7.4 g/dL (6.4-8.2) 10/07/18 06:30 Albumin 2.5 g/dL (3.4-5.0) L 10/07/18 06:30 C.difficile Tox Ab Neut Cancelled 10/06/18 15:46
[2018-10-07] MEDS: Ketorolac 30 MG/ML VIAL IVP (16:23)
[2018-10-07] MEDS: Melatonin 3 MG TAB PO (21:31)
[2018-10-07] MEDS: Lactated Ringers 1,000 ML 75 ML IV (21:31)
[2018-10-07 23:38] VITALS: BP 110/74; PULSE 91; RESP 18; TEMP 36.8; O2SAT 100
[2018-10-08] MEDS: Acetaminophen 325 MG TAB 650 MG PO ×2 (02:17→09:46)
[2018-10-08] MEDS: Normal Saline Flush 10 ML SYR IVP ×7 (02:17→23:52)
[2018-10-08] MEDS: HYDROmorphone 2 MG/ML VIAL IVP ×5 (02:17→21:12)
[2018-10-08] MEDS: Cholestyramine/Aspartame PKT 1 EACH PO ×4 (05:21→19:59)
[2018-10-08] MEDS: Ketorolac 30 MG/ML VIAL IVP ×3 (05:21→21:04)
--- NOTE | 2018-10-08 06:57 | W.PM.PROGNOT ---
Date of Service Date of service: 10/08/18 Time of Service: 06:57 Assessment and Plan (1) Altered bowel elimination due to intestinal ostomy: Current visit: No Status: Acute Ileostomy output decreased yesterday by half at 1700mL. Continue with metamucil, chloestyramine, zantac, and lomotil. Will hold opium tincture today and see how this is tolerated. IV Fluids- Currently PO intake of fluids and pedi-lyte is good. Will hold IV fluids today and see how this is tolerated. Encouraged adequate fluid intake. Continue with sterile saline flushing of midline incision. Incision continues to drain fluid. Midline incision- light zimmerman/brown drainage from the lower portion of the incision site. 3 round: Superficial open area's along the upper portion of the incision. Small serous filled blisters along the right lower border of the incision ? due to dressing. Subjective Interval history since last seen: Things are starting to be more formed in my ileostomy. She reports some abdominal pain periumbilical between her midline incision site and her ileostomy. Denies nausea and vomiting. She has been tolerating the pedi-lyte and normal diet. I am hoping to go home Saturday. Exam Const General: cooperative, healthy appearing and comfortable Orientation: alert and oriented x3 Resp Effort & Inspection: normal respiratory effort, no audible wheezes and no cough GI Inspection: normal to inspection, non-distended and incision (covered with dressing) Palpation: soft, no guarding and tender periumbilically (Left side between midline incision and ileostomy) Abdomen image: 1. Midline incison 2. ileostomy Objective Objective Clinical Data: Abnormal lab results 10/07/18 Range/Units 06:30 Potassium 3.4 L (3.5-5.1) mmol/L Carbon Dioxide 34.8 H (21.0-32.0) mmol/L Glucose 111 H (70-100) mg/dL AST 46 H (15-37) U/L Albumin 2.5 L (3.4-5.0) g/dL Vital Signs Temperature 36.8 C 10/07/18 23:38 Temperature Source Tympanic 10/07/18 23:38 Pulse 91 H 10/07/18 23:38 Pulse Rhythm Regular 10/07/18 20:41 Pulse 89 09/30/18 23:50 Respiratory Rate 18 10/07/18 23:38 Respiratory Effort Non-Labored 10/07/18 20:41 Respiratory Depth Normal 10/07/18 20:41 Respiratory Pattern Normal 10/07/18 20:41 Blood Pressure 110/74 10/07/18 23:38 Blood Pressure Mean 85 09/30/18 23:36 Pulse Oximetry 100 10/07/18 23:38 Oxygen Delivery Method Room Air 10/07/18 23:38 Oxygen Flow Rate 0 10/07/18 23:38 Pain Level 7 10/07/18 17:12 Comment 10/01/18 04:15 Intake & Output 10/07/18 10/07/18 10/08/18 11:59 23:59 11:59 Intake Total 1120 / 2890.00 1770.00 / 2890.00 1030 / 1030 Output Total 800 / 3100 2300 / 3100 700 / 700 Balance 320 / -210.00 -530.00 / -210.00 330 / 330 Intake: IV 70 / 1360.00 1290.00 / 1360.00 530 / 530 Oral 1050 / 1530 480 / 1530 500 / 500 Output: Urine 1300 / 1300 300 / 300 Stool 800 / 1800 1000 / 1800 400 / 400 Other: Urine Color Dark Sharmaine Dark Sharmaine Urine Appearance Clear Clear Urine Odor Normal Comment Pt voiding ad claudia in toilet. Denies sx. Second void of morning. First dumped prior to measurement. Voiding Methods Toilet Toilet Toilet Laboratory Results WBC 4.94 k/cumm (4.4-10.8) 10/05/18 05:40 RBC 3.50 m/cumm (4.00-5.20) L 10/05/18 05:40 Hgb 10.3 g/dL (12.0-15.5) L 10/05/18 05:40 Hct 31.2 % (36.0-46.0) L 10/05/18 05:40 MCV 89.1 fL (80-95) 10/05/18 05:40 MCH 29.4 pg (27.0-33.0) 10/05/18 05:40 MCHC 33.0 g/dL (32.0-36.0) 10/05/18 05:40 RDW 13.0 % (11.7-14.6) 10/05/18 05:40 Plt Count 270 x1000/uL (130-400) 10/05/18 05:40 MPV 9.1 fL (8.0-11.0) 10/05/18 05:40 Immature Gran % 0.4 10/05/18 05:40 Neutrophils % 47.4 10/05/18 05:40 Lymphocytes % 27.5 10/05/18 05:40 Monocytes % 10.1 10/05/18 05:40 Eosinophils % 14.2 10/05/18 05:40 Basophils % 0.4 10/05/18 05:40 Absolute Neutrophils 2.34 k/cumm (1.2-6.7) 10/05/18 05:40 Absolute Lymphocytes 1.36 k/cumm (1.2-3.4) 10/05/18 05:40 Absolute Monocytes 0.50 k/cumm (0.11-0.7) 10/05/18 05:40 Absolute Eosinophils 0.70 k/cumm (0.0-0.7) 10/05/18 05:40 Absolute Basophils 0.02 k/cumm (0.0-0.2) 10/05/18 05:40 APTT 24.4 sec (21.0-31.4) 10/01/18 07:00 Sodium 139 mmol/L (136-145) 10/07/18 06:30 Potassium 3.4 mmol/L (3.5-5.1) L 10/07/18 06:30 Chloride 99 mmol/L (98-107) 10/07/18 06:30 Carbon Dioxide 34.8 mmol/L (21.0-32.0) H 10/07/18 06:30 Anion Gap 5.2 mmol/L (3-11) 10/07/18 06:30 BUN 10 mg/dL (7-18) 10/07/18 06:30 Creatinine 0.76 mg/dL (0.55-1.02) 10/07/18 06:30 Estimated GFR/1.73 m2 >= 60.00 (mL/min/1.73m2) 10/07/18 06:30 Glucose 111 mg/dL (70-100) H 10/07/18 06:30 Lactate 1.1 mmol/l (0.6-1.4) 10/01/18 15:10 Calcium 8.9 mg/dL (8.5-10.1) 10/07/18 06:30 Total Bilirubin 0.8 mg/dL (0.2-1.0) 10/07/18 06:30 AST 46 U/L (15-37) H 10/07/18 06:30 ALT 67 U/L (12-78) 10/07/18 06:30 Alkaline Phosphatase 91 U/L (46-116) 10/07/18 06:30 Total Protein 7.4 g/dL (6.4-8.2) 10/07/18 06:30 Albumin 2.5 g/dL (3.4-5.0) L 10/07/18 06:30 C.difficile Tox Ab Neut Cancelled 10/06/18 15:46
[2018-10-08 07:41] VITALS: BP 109/51; PULSE 81; RESP 18; TEMP 36.7; O2SAT 94
[2018-10-08] MEDS: Psyllium PKT 1 EACH PO ×4 (08:08→19:59)
[2018-10-08] MEDS: Multivitamin TAB 1 TAB PO (08:58)
[2018-10-08] MEDS: Electrolyte SOLUTION,ORAL 1000 ML BTL PO ×3 (08:58→20:00)
[2018-10-08] MEDS: Normal Saline Flush 10 ML SYR 20 ML IVP ×2 (11:28→20:13)
--- NOTE | 2018-10-08 12:28 | W.NUTRFU ---
Date of service: 10/08/18 Time of Service: 12:28 Nutritional Follow up NOTE: Increase in stool output noted today. Also noting that her pattern is to have increased output overnight, however she just had a large output at 1200. Unsure what that may be related to. Would consider changing questran light to regular questran. Spoke with pharmacy and regular questran only has 4.5 g of carbohydrate per serving which is not significant with regard to blood sugar management. Questran light contains aspartame which in some people can contribute to increased stool output. Will continue to follow progress and evaluate nutrition care plan ongoing. Time Spent in Nutritional Counseling and Treatment: ROM
[2018-10-08] MEDS: CEFEPIME 2 GM in Normal Saline 100 ML IVPB ×2 (13:12→23:53)
--- NOTE | 2018-10-08 15:06 | CMPROGNOTE_ITS ---
- If Service Date Differs Date of service: 10/08/18 Time of Service: 15:05 Care Management Progress Note S/O: Radha is lying in bed when this hand sign writer visits this afternoon. Per morning report she has been doing better and her ostomy has been slowing. When SUSAN met with Radha she states that her ostomy has started to produce more and quickly as it was before which has her feeling discouraged and Grumpy. SUSAN offered Radha support, and discussed her extended hospitalization. A: 48 year old female admitted to [facility] 09/30/18 for Fascial Dehiscence P: Radha will return to her mother's home in [place] when medically ready for discharge; anticipated she will resume VNA/RN supports. She had a PICC placed for TPN and continues to be closely monitored. She will transport via private vehicle with her family when ready.
--- NOTE | 2018-10-08 15:24 | DI.CT_ITS ---
SYMPTOMS/DIAGNOSIS: DRAINING MIDLINE INCISION, FASCIAL DEHISCENCE S/P COLECTOMY CT OF THE ABDOMEN AND PELVIS: Comparison is made with outside exam dated September,. Images were performed from the lung bases through the ischial tuberosities after IV and oral contrast. The oral contrast is seen within the stomach and proximal small bowel. A left lower quadrant ostomy is again noted, which is unremarkable. There is a midline surgical incision, which contains some air beneath the level of the umbilicus. There is now a small amount of fluid in the fat around the incision site, which could indicate superimposed infection. Some air bubbles are present. There are fatty-containing lower anterior abdominal wall hernias, which appear unchanged. A small amount of fluid is seen in a more right-sided hernia. There has been interval improvement in the intraabdominal fluid collections, seen in the left lateral aspect of the abdomen, as well as in the mid pelvis. Bowel anastomoses are again noted. There is a loop of bowel in the low pelvis which shows wall thickening, near the area of the surgical site. There has been interval decrease in an area of the fluid collection seen near this loop of bowel. There is no evidence of obstruction. The lung bases are clear. The liver, spleen, pancreas, kidneys and adrenals show no new findings. The patient is status post hysterectomy. The blader is unremarkable. IMPRESSION: Increased amount of fluid and soft tissue changes in the region of the surgical incision could indicate superimposed infection. The remainder of the findings within the abdomen show interval improvement.
[2018-10-08] MEDS: Omnipaque 350 MG/ML 100 ML BTL IJ (15:47)
[2018-10-08] MEDS: Ondansetron 4 MG/2 ML VIAL IVP (17:46)
[2018-10-08 21:55] VITALS: BP 112/64; PULSE 92; RESP 20; TEMP 37; O2SAT 96
[2018-10-09] MEDS: HYDROmorphone 2 MG/ML VIAL IVP ×4 (04:56→19:29)
[2018-10-09] MEDS: Ketorolac 30 MG/ML VIAL IVP ×3 (04:57→18:23)
[2018-10-09] MEDS: Normal Saline Flush 10 ML SYR IVP ×5 (04:58→19:30)
--- NOTE | 2018-10-09 05:16 | NUR.NOTE ---
Nursing Note: Patient was medicated for abdominal pain with Toradol and dilaudid IVP PRN twice., and with good relief. Purple lumen of CL unable to flush but red tab of double lumen when flushed has good blood returned. She is aware of difficulty, tried to repositioned arm but unsuccessful. Ostomy bag was emtied twice with orange colored output. Pedialyte arount 00 cc well tolerated until tis time.. Needs more motivation. Abdominal midline drsg is C/D/I. Will continue to moniitor.
[2018-10-09] MEDS: Cholestyramine/Aspartame PKT 1 EACH PO (05:57)
[2018-10-09 07:50] VITALS: BP 110/78; PULSE 84; RESP 20; TEMP 36.7; O2SAT 100
--- NOTE | 2018-10-09 08:40 | W.PM.PROGNOT ---
Date of Service Date of service: 10/09/18 Time of Service: 08:41 Assessment and Plan (1) Altered bowel elimination due to intestinal ostomy: Current visit: No Status: Acute Ileostomy output elevated at 4100mL yesterday. Continue with metamucil, chloestyramine, zantac, opium tincture and lomotil. Midline incision- light zimmerman/brown drainage from the lower portion of the incision site. 3 round: Superficial open area's along the upper portion of the incision. Continue sterile saline cleansing of the lower portion of the midline incision. Diet changed to NPO. May have ice chips and PO medications only. Will start TPN. Discussed with the patient that due to her significant ileostomy output she is at a high risk for dehydration. The ileostomy output has continued despite use of the above medications along with diet modifications. Subjective Interval history since last seen: Feeling okay today. She reports that her ileostomy continued to put out significant amount over the course of yesterday. She denies fevers or chills. She continues to have lower abdominal pain. Exam Const General: cooperative, healthy appearing and comfortable Orientation: alert and oriented x3 Resp Effort & Inspection: normal respiratory effort, no audible wheezes and no cough Auscultation: clear to auscultation bilaterally and no wheezes Cardio Jugular venous pressure: no JVD GI Inspection: incision Palpation: soft, no guarding and tender (Willian. lower abdomen. ) Objective Objective Clinical Data: Vital Signs Temperature 36.7 C 10/09/18 07:50 Temperature Source Tympanic 10/09/18 07:50 Pulse 84 10/09/18 07:50 Pulse Rhythm Regular 10/08/18 22:05 Pulse 89 09/30/18 23:50 Respiratory Rate 20 10/09/18 07:50 Respiratory Effort Non-Labored 10/08/18 22:05 Respiratory Depth Normal 10/08/18 22:05 Respiratory Pattern Normal 10/08/18 22:05 Blood Pressure 110/78 10/09/18 07:50 Blood Pressure Mean 85 09/30/18 23:36 Pulse Oximetry 100 10/09/18 07:50 Oxygen Delivery Method Room Air 10/09/18 07:50 Oxygen Flow Rate 0 10/09/18 07:50 Pain Level 9 10/09/18 04:57 Comment 10/01/18 04:15 Intake & Output 10/08/18 10/08/18 10/09/18 11:59 23:59 11:59 Intake Total 1270 / 2450 1180 / 2450 620 / 620 Output Total 2200 / 5850 3650 / 5850 650 / 650 Balance -930 / -3400 -2470 / -3400 -30 / -30 Intake: IV 530 / 630 100 / 630 100 / 100 Oral 740 / 1820 1080 / 1820 520 / 520 Output: Urine 950 / 1650 700 / 1650 Stool 1250 / 4200 2950 / 4200 650 / 650 Other: Urine Color Dark Sharmaine Yellow Urine Appearance Clear Clear Urine Odor Normal Normal Comment pt reported urine output and appearance Voiding Methods Toilet Toilet Laboratory Results WBC 4.94 k/cumm (4.4-10.8) 10/05/18 05:40 RBC 3.50 m/cumm (4.00-5.20) L 10/05/18 05:40 Hgb 10.3 g/dL (12.0-15.5) L 10/05/18 05:40 Hct 31.2 % (36.0-46.0) L 10/05/18 05:40 MCV 89.1 fL (80-95) 10/05/18 05:40 MCH 29.4 pg (27.0-33.0) 10/05/18 05:40 MCHC 33.0 g/dL (32.0-36.0) 10/05/18 05:40 RDW 13.0 % (11.7-14.6) 10/05/18 05:40 Plt Count 270 x1000/uL (130-400) 10/05/18 05:40 MPV 9.1 fL (8.0-11.0) 10/05/18 05:40 Immature Gran % 0.4 10/05/18 05:40 Neutrophils % 47.4 10/05/18 05:40 Lymphocytes % 27.5 10/05/18 05:40 Monocytes % 10.1 10/05/18 05:40 Eosinophils % 14.2 10/05/18 05:40 Basophils % 0.4 10/05/18 05:40 Absolute Neutrophils 2.34 k/cumm (1.2-6.7) 10/05/18 05:40 Absolute Lymphocytes 1.36 k/cumm (1.2-3.4) 10/05/18 05:40 Absolute Monocytes 0.50 k/cumm (0.11-0.7) 10/05/18 05:40 Absolute Eosinophils 0.70 k/cumm (0.0-0.7) 10/05/18 05:40 Absolute Basophils 0.02 k/cumm (0.0-0.2) 10/05/18 05:40 APTT 24.4 sec (21.0-31.4) 10/01/18 07:00 Sodium 139 mmol/L (136-145) 10/07/18 06:30 Potassium 3.4 mmol/L (3.5-5.1) L 10/07/18 06:30 Chloride 99 mmol/L (98-107) 10/07/18 06:30 Carbon Dioxide 34.8 mmol/L (21.0-32.0) H 10/07/18 06:30 Anion Gap 5.2 mmol/L (3-11) 10/07/18 06:30 BUN 10 mg/dL (7-18) 10/07/18 06:30 Creatinine 0.76 mg/dL (0.55-1.02) 10/07/18 06:30 Estimated GFR/1.73 m2 >= 60.00 (mL/min/1.73m2) 10/07/18 06:30 Glucose 111 mg/dL (70-100) H 10/07/18 06:30 Lactate 1.1 mmol/l (0.6-1.4) 10/01/18 15:10 Calcium 8.9 mg/dL (8.5-10.1) 10/07/18 06:30 Total Bilirubin 0.8 mg/dL (0.2-1.0) 10/07/18 06:30 AST 46 U/L (15-37) H 10/07/18 06:30 ALT 67 U/L (12-78) 10/07/18 06:30 Alkaline Phosphatase 91 U/L (46-116) 10/07/18 06:30 Total Protein 7.4 g/dL (6.4-8.2) 10/07/18 06:30 Albumin 2.5 g/dL (3.4-5.0) L 10/07/18 06:30 C.difficile Tox Ab Neut Cancelled 10/06/18 15:46
[2018-10-09] MEDS: Normal Saline Flush 10 ML SYR 20 ML IVP (10:53)
[2018-10-09] MEDS: Alteplase 2 MG VIAL IJ (10:56)
--- NOTE | 2018-10-09 13:22 | W.INDIABCONS ---
Date of service: 10/09/18 Time of Service: 13:22 Diabetes Inpatient Consult DESCRIPTION/ASSESSMENT: Appreciate diabetes consult for Radha Parada who is here with illeostomy starting TPN due to risk of dehydration. Blood sugars this hospitalization at goal without medication with blood sugars 88-152mg/dl. She has been eating a surgical soft diet. INTERVENTION: No intervention for diabetes suggested at this time. PLAN: Will follow blood sugars and follow up if her diabetes management warrants a change Time Spent in Nutritional Counseling and Treatment: 0 minutes spent face to face inpatient
[2018-10-09] MEDS: CEFEPIME 2 GM in Normal Saline 100 ML IVPB (13:35)
[2018-10-09] MEDS: Water,Injection,Bacteriostatic 30 ML VIAL (13:36)
--- NOTE | 2018-10-09 14:14 | PDOC.CMPRO ---
- If Service Date Differs Date of service: 10/09/18 Time of Service: 14:14 Care Management Progress Note S/O: Radha is lying in bed this morning with nursing staff in her room. She continues to have large volume outputs as of morning report, and required Zofran last evening. No change in DC plan. A: 48 year old female admitted to [facility] 09/30/18 for Fascial Dehiscence P: Radha will return to her mother's home in [place] when medically ready for discharge; anticipated she will resume VNA/RN supports. She had a PICC placed for TPN and continues to be closely monitored. She will transport via private vehicle with her family when ready.
[2018-10-09 15:33] VITALS: BP 100/66; PULSE 88; RESP 16; TEMP 36.7; O2SAT 97
[2018-10-09] MEDS: Acetaminophen 325 MG TAB 650 MG PO (18:24)
[2018-10-09 23:42] VITALS: BP 113/72; PULSE 80; RESP 18; TEMP 36.3; O2SAT 99
[2018-10-10] MEDS: Ketorolac 30 MG/ML VIAL IVP ×4 (00:03→23:21)
[2018-10-10] MEDS: HYDROmorphone 2 MG/ML VIAL IVP ×6 (00:04→23:21)
[2018-10-10] MEDS: Normal Saline Flush 10 ML SYR IVP ×7 (00:04→23:22)
[2018-10-10] MEDS: CEFEPIME 2 GM in Normal Saline 100 ML IVPB ×3 (00:04→23:22)
[2018-10-10] MEDS: Normal Saline 500 ML 30 ML IV (00:05)
[2018-10-10 05:24] VITALS: BP 111/63; PULSE 82; RESP 17; TEMP 36.7; O2SAT 97
[2018-10-10 07:20] VITALS: BP 105/69; PULSE 81; RESP 16; TEMP 36.6; O2SAT 98
[2018-10-10 07:33] LABS: HCT 33.2 % (36.0-46.0); HGB 10.4 g/dL (12.0-15.5); Mean Corp. HGB Concentration 31.3 g/dL (32.0-36.0); Mean Corpuscular Hemoglobin 28.4 pg (27.0-33.0); Mean Corpuscular Volume 90.7 fL (80-95); Mean Platelet Volume 9.7 fL (8.0-11.0); Platelet Count 195 x1000/uL (130-400); RBC 3.66 m/cumm (4.00-5.20); RBC Distribution Width 13.6 % (11.7-14.6); White Blood Cell Count 4.39 k/cumm (4.4-10.8)
[2018-10-10 07:41] LABS: INR 1.1 (0.9-1.1); Prothrombin Time 11.4 sec (9.3-11.0)
[2018-10-10 07:45] LABS: ALT 42 U/L (12-78); Albumin 2.7 g/dL (3.4-5.0); Alkaline Phosphatase 87 U/L (46-116); Bilirubin, Total 0.8 mg/dL (0.2-1.0); CREATININE 1.05 mg/dL (0.55-1.02); Calcium 8.7 mg/dL (8.5-10.1); Estimated GFR 56.18 (mL/min/1.73m2); Magnesium 1.6 mg/dL (1.8-2.4); PHOSPHORUS 3.6 mg/dL (2.6-4.7)
[2018-10-10] MEDS: Normal Saline Flush 10 ML SYR 20 ML IVP ×2 (09:46→21:02)
--- NOTE | 2018-10-10 12:57 | PDOC.CMPRO ---
- If Service Date Differs Date of service: 10/10/18 Time of Service: 12:57 Care Management Progress Note S/O: Radha is lying in bed this morning when this engineering writer visits. Radha is tearful throughout discussion. She states that she is NPO at this time, and is on TPN as she is scheduled to have surgery next week for an ostomy reversal. Radha discusses feelings with this engineering writer, reflecting on her hospitalization, and states that she has been hospitalized for around a month. CM offered support to Radha. Her [employer] came in with balloons while this engineering writer was in the room, which Radha was visibly happy about. A: 48 year old female admitted to [facility] 09/30/18 for Fascial Dehiscence P: Radha will return to her mother's home in [place] when medically ready for discharge; anticipated she will resume VNA/RN supports. She had a PICC placed for TPN and continues to be closely monitored. She will transport via private vehicle with her family when ready.
--- NOTE | 2018-10-10 13:10 | CMPROGNOTE_ITS ---
- If Service Date Differs Date of service: 10/10/18 Time of Service: 12:57 Care Management Progress Note S/O: Radha is lying in bed this morning when this marine underwriter visits. Radha is tearful throughout discussion. She states that she is NPO at this time, and is on TPN as she is scheduled to have surgery next week for an ostomy reversal. Radha discusses feelings with this marine underwriter, reflecting on her hospitalization, and states that she has been hospitalized for around a month. CM offered support to Radha. Her [employer] came in with balloons while this marine underwriter was in the room, which Radha was visibly happy about. A: 48 year old female admitted to [facility] 09/30/18 for Fascial Dehiscence P: Radha will return to her mother's home in [place] when medically ready for discharge; anticipated she will resume VNA/RN supports. She had a PICC placed for TPN and continues to be closely monitored. She will transport via private vehicle with her family when ready.
[2018-10-10 16:44] VITALS: BP 119/78; PULSE 87; RESP 18; TEMP 36.6; O2SAT 98
[2018-10-10 20:27] VITALS: BP 114/76; PULSE 81; RESP 18; TEMP 36.4; O2SAT 96
[2018-10-11 00:15] VITALS: BP 116/71; PULSE 71; RESP 17; TEMP 36.8; O2SAT 97
[2018-10-11] MEDS: Ketorolac 30 MG/ML VIAL IVP ×3 (03:57→16:31)
[2018-10-11] MEDS: HYDROmorphone 2 MG/ML VIAL IVP ×5 (03:58→20:57)
[2018-10-11] MEDS: Normal Saline Flush 10 ML SYR IVP ×5 (03:59→20:56)
[2018-10-11 07:43] VITALS: BP 119/80; PULSE 78; RESP 19; TEMP 36.6; O2SAT 98
[2018-10-11 07:57] LABS: HCT 32.6 % (36.0-46.0); HGB 10.5 g/dL (12.0-15.5); Mean Corp. HGB Concentration 32.2 g/dL (32.0-36.0); Mean Corpuscular Hemoglobin 28.8 pg (27.0-33.0); Mean Corpuscular Volume 89.6 fL (80-95); Mean Platelet Volume 10.4 fL (8.0-11.0); Platelet Count 181 x1000/uL (130-400); RBC 3.64 m/cumm (4.00-5.20); RBC Distribution Width 13.4 % (11.7-14.6)
[2018-10-11 08:11] LABS: Calcium 8.9 mg/dL (8.5-10.1); Chloride 99 mmol/L (98-107); Glucose 128 mg/dL (70-100); Magnesium 1.8 mg/dL (1.8-2.4); PHOSPHORUS 3.1 mg/dL (2.6-4.7); Sodium 138 mmol/L (136-145)
[2018-10-11] MEDS: Acetaminophen 325 MG TAB 650 MG PO ×2 (08:11→20:56)
[2018-10-11] MEDS: Normal Saline Flush 10 ML SYR 20 ML IVP ×2 (08:12→19:53)
--- NOTE | 2018-10-11 08:20 | W.PM.PROGNOT ---
Date of Service Date of service: 10/11/18 Time of Service: 08:20 Assessment and Plan (1) Ileostomy dysfunction: Start date: 10/11/18 Start time: 08:24 Current visit: Yes Status: Acute cont to have issues with bag staying in place has improved nursing doing a great job with it patient does not have skin changes or breakdown (2) High output ileostomy: Start date: 10/11/18 Start time: 08:24 Current visit: Yes Status: Acute pt has ranged from 1-4 liters a day out all attempts to control this medically have failed she has been made NPO TPN started and labs checked she is currently scheduled for saturday for reversal will potentially adress her fascial dehiscence at that time labs this morning are good and would continue course Subjective Patient reports: no new complaints Interval history since last seen: awaiting surgery saturday Exam Const General: cooperative Orientation: alert, awake and oriented x3 GI Inspection: normal to inspection and incision Palpation: soft Percussion: normal to percussion Auscultation: normal bowel sounds Other: ileostomy cont to have high output her lower incision cont to drain small upper portion of her incision open Abdomen image: 1. midline incision 2. lower open draining wound 3. upper draining wound 4. ileostomy Objective Objective Clinical Data: Abnormal lab results 10/11/18 10/11/18 Range/Units 06:45 06:45 RBC 3.64 L (4.00-5.20) m/cumm Hgb 10.5 L (12.0-15.5) g/dL Hct 32.6 L (36.0-46.0) % Glucose 128 H (70-100) mg/dL Vital Signs Temperature 36.8 C 10/11/18 00:15 Temperature Source Tympanic 10/11/18 00:15 Pulse 71 10/11/18 00:15 Pulse Rhythm Regular 10/10/18 22:38 Pulse 89 09/30/18 23:50 Respiratory Rate 17 10/11/18 00:15 Respiratory Effort 10/10/18 22:38 Respiratory Depth Normal 10/10/18 22:38 Respiratory Pattern Normal 10/10/18 22:38 Blood Pressure 116/71 10/11/18 00:15 Blood Pressure Mean 85 09/30/18 23:36 Pulse Oximetry 97 10/11/18 00:15 Oxygen Delivery Method Room Air 10/11/18 00:15 Oxygen Flow Rate 0 10/11/18 00:15 Pain Level 9 10/11/18 08:11 Comment 10/01/18 04:15 Intake & Output 10/10/18 10/10/18 10/11/18 11:59 23:59 11:59 Intake Total 1221 / 2681 1460 / 2681 Output Total 700 / 1550 850 / 1550 300 / 300 Balance 521 / 1131 610 / 1131 -300 / -300 Weight 114.9 kg 115.3 kg Intake: IV 1221 / 2481 1260 / 2481 Oral 200 / 200 Output: Stool 700 / 1550 850 / 1550 300 / 300 Other: Comment urine not viewed, pt voiding independently in the bathroom Voiding Methods Toilet Toilet Laboratory Results WBC 4.60 k/cumm (4.4-10.8) 10/11/18 06:45 RBC 3.64 m/cumm (4.00-5.20) L 10/11/18 06:45 Hgb 10.5 g/dL (12.0-15.5) L 10/11/18 06:45 Hct 32.6 % (36.0-46.0) L 10/11/18 06:45 MCV 89.6 fL (80-95) 10/11/18 06:45 MCH 28.8 pg (27.0-33.0) 10/11/18 06:45 MCHC 32.2 g/dL (32.0-36.0) 10/11/18 06:45 RDW 13.4 % (11.7-14.6) 10/11/18 06:45 Plt Count 181 x1000/uL (130-400) 10/11/18 06:45 MPV 10.4 fL (8.0-11.0) 10/11/18 06:45 Immature Gran % 0.4 10/05/18 05:40 Neutrophils % 47.4 10/05/18 05:40 Lymphocytes % 27.5 10/05/18 05:40 Monocytes % 10.1 10/05/18 05:40 Eosinophils % 14.2 10/05/18 05:40 Basophils % 0.4 10/05/18 05:40 Absolute Neutrophils 2.34 k/cumm (1.2-6.7) 10/05/18 05:40 Absolute Lymphocytes 1.36 k/cumm (1.2-3.4) 10/05/18 05:40 Absolute Monocytes 0.50 k/cumm (0.11-0.7) 10/05/18 05:40 Absolute Eosinophils 0.70 k/cumm (0.0-0.7) 10/05/18 05:40 Absolute Basophils 0.02 k/cumm (0.0-0.2) 10/05/18 05:40 PT 11.4 sec (9.3-11.0) H 10/10/18 06:50 INR 1.1 (0.9-1.1) 10/10/18 06:50 APTT 24.4 sec (21.0-31.4) 10/01/18 07:00 Sodium 138 mmol/L (136-145) 10/11/18 06:45 Potassium 4.0 mmol/L (3.5-5.1) 10/11/18 06:45 Chloride 99 mmol/L (98-107) 10/11/18 06:45 Carbon Dioxide 30.0 mmol/L (21.0-32.0) 10/11/18 06:45 Anion Gap 9.0 mmol/L (3-11) 10/11/18 06:45 BUN 10 mg/dL (7-18) 10/07/18 06:30 Creatinine 1.05 mg/dL (0.55-1.02) H 10/10/18 06:50 Estimated GFR/1.73 m2 56.18 (mL/min/1.73m2) 10/10/18 06:50 Glucose 128 mg/dL (70-100) H 10/11/18 06:45 Lactate 1.1 mmol/l (0.6-1.4) 10/01/18 15:10 Calcium 8.9 mg/dL (8.5-10.1) 10/11/18 06:45 Phosphorus 3.1 mg/dL (2.6-4.7) 10/11/18 06:45 Magnesium 1.8 mg/dL (1.8-2.4) 10/11/18 06:45 Total Bilirubin 0.8 mg/dL (0.2-1.0) 10/10/18 06:50 AST 46 U/L (15-37) H 10/07/18 06:30 ALT 42 U/L (12-78) 10/10/18 06:50 Alkaline Phosphatase 87 U/L (46-116) 10/10/18 06:50 Total Protein 7.4 g/dL (6.4-8.2) 10/07/18 06:30 Albumin 2.7 g/dL (3.4-5.0) L 10/10/18 06:50 C.difficile Tox Ab Neut Cancelled 10/06/18 15:46
[2018-10-11] MEDS: CEFEPIME 2 GM in Normal Saline 100 ML IVPB (12:03)
--- NOTE | 2018-10-11 14:24 | NUR.NOTE ---
Nursing Note: 1345: pt requests to wait on dressing change until later today. dressing intact at this time. pt requesting to ambulate and bathe prior to dressing change.
--- NOTE | 2018-10-11 19:03 | W.PM.PROGNOT ---
Date of Service Date of service: 10/10/18 Time of Service: 08:00 Assessment and Plan (1) Altered bowel elimination due to intestinal ostomy: Current visit: No Status: Acute She will continue to be NPO. Started TPN last night, which she has been tolerating well. Ileostomy output continues to be high despite medical treatment. She has had frequent dressing changes due to the appliance, having leaks. Wound dressing in place, continue wound dressing and cleansing of the wound TID. Subjective Interval history since last seen: feeling okay Tolerated the PICC line and has started the TPN last night. She reports doing her best trying to stay active and to ambulate multiple times a day. Exam Const General: cooperative and comfortable Orientation: alert and oriented x3 Resp Effort & Inspection: normal respiratory effort, no audible wheezes and no cough GI Inspection: normal to inspection and non-distended Palpation: soft, no guarding and tender in the LLQ and in the RLQ Objective Objective Clinical Data: Abnormal lab results 10/11/18 10/11/18 Range/Units 06:45 06:45 RBC 3.64 L (4.00-5.20) m/cumm Hgb 10.5 L (12.0-15.5) g/dL Hct 32.6 L (36.0-46.0) % Glucose 128 H (70-100) mg/dL Vital Signs Temperature 36.6 C 10/11/18 07:43 Temperature Source Tympanic 10/11/18 07:43 Pulse 78 10/11/18 07:43 Pulse Rhythm Regular 10/11/18 10:13 Pulse 89 09/30/18 23:50 Respiratory Rate 10/11/18 07:43 Respiratory Effort Non-Labored 10/11/18 10:13 Respiratory Depth Normal 10/11/18 10:13 Respiratory Pattern Normal 10/11/18 10:13 Blood Pressure 119/80 10/11/18 07:43 Blood Pressure Mean 85 09/30/18 23:36 Pulse Oximetry 98 10/11/18 07:43 Oxygen Delivery Method Room Air 10/11/18 07:43 Oxygen Flow Rate 0 10/11/18 07:43 Pain Level 3 10/11/18 17:31 Comment 10/01/18 04:15 Intake & Output 10/10/18 10/11/18 10/11/18 23:59 11:59 23:59 Intake Total 1710 / 2931 1171 / 2291 1120 / 2291 Output Total 850 / 1550 300 / 750 450 / 750 Balance 860 / 1381 871 / 1541 670 / 1541 Weight 115.3 kg Intake: IV 1510 / 2731 1071 / 2191 1120 / 2191 Oral 200 / 200 100 / 100 Output: Stool 850 / 1550 300 / 750 450 / 750 Other: Comment urine not viewed, pt voiding independently in the bathroom urine not assessed at this time; pt is voiding ad claudia in toilet. pt denies any issues at this time Voiding Methods Toilet Toilet Laboratory Results WBC 4.60 k/cumm (4.4-10.8) 10/11/18 06:45 RBC 3.64 m/cumm (4.00-5.20) L 10/11/18 06:45 Hgb 10.5 g/dL (12.0-15.5) L 10/11/18 06:45 Hct 32.6 % (36.0-46.0) L 10/11/18 06:45 MCV 89.6 fL (80-95) 10/11/18 06:45 MCH 28.8 pg (27.0-33.0) 10/11/18 06:45 MCHC 32.2 g/dL (32.0-36.0) 10/11/18 06:45 RDW 13.4 % (11.7-14.6) 10/11/18 06:45 Plt Count 181 x1000/uL (130-400) 10/11/18 06:45 MPV 10.4 fL (8.0-11.0) 10/11/18 06:45 Immature Gran % 0.4 10/05/18 05:40 Neutrophils % 47.4 10/05/18 05:40 Lymphocytes % 27.5 10/05/18 05:40 Monocytes % 10.1 10/05/18 05:40 Eosinophils % 14.2 10/05/18 05:40 Basophils % 0.4 10/05/18 05:40 Absolute Neutrophils 2.34 k/cumm (1.2-6.7) 10/05/18 05:40 Absolute Lymphocytes 1.36 k/cumm (1.2-3.4) 10/05/18 05:40 Absolute Monocytes 0.50 k/cumm (0.11-0.7) 10/05/18 05:40 Absolute Eosinophils 0.70 k/cumm (0.0-0.7) 10/05/18 05:40 Absolute Basophils 0.02 k/cumm (0.0-0.2) 10/05/18 05:40 PT 11.4 sec (9.3-11.0) H 10/10/18 06:50 INR 1.1 (0.9-1.1) 10/10/18 06:50 APTT 24.4 sec (21.0-31.4) 10/01/18 07:00 Sodium 138 mmol/L (136-145) 10/11/18 06:45 Potassium 4.0 mmol/L (3.5-5.1) 10/11/18 06:45 Chloride 99 mmol/L (98-107) 10/11/18 06:45 Carbon Dioxide 30.0 mmol/L (21.0-32.0) 10/11/18 06:45 Anion Gap 9.0 mmol/L (3-11) 10/11/18 06:45 BUN 10 mg/dL (7-18) 10/07/18 06:30 Creatinine 1.05 mg/dL (0.55-1.02) H 10/10/18 06:50 Estimated GFR/1.73 m2 56.18 (mL/min/1.73m2) 10/10/18 06:50 Glucose 128 mg/dL (70-100) H 10/11/18 06:45 Lactate 1.1 mmol/l (0.6-1.4) 10/01/18 15:10 Calcium 8.9 mg/dL (8.5-10.1) 10/11/18 06:45 Phosphorus 3.1 mg/dL (2.6-4.7) 10/11/18 06:45 Magnesium 1.8 mg/dL (1.8-2.4) 10/11/18 06:45 Total Bilirubin 0.8 mg/dL (0.2-1.0) 10/10/18 06:50 AST 46 U/L (15-37) H 10/07/18 06:30 ALT 42 U/L (12-78) 10/10/18 06:50 Alkaline Phosphatase 87 U/L (46-116) 10/10/18 06:50 Total Protein 7.4 g/dL (6.4-8.2) 10/07/18 06:30 Albumin 2.7 g/dL (3.4-5.0) L 10/10/18 06:50 C.difficile Tox Ab Neut Cancelled 10/06/18 15:46
--- NOTE | 2018-10-11 19:55 | PDOC.CMPRO ---
Care Management Progress Note S/O: Radha was lying in bed when CM met with her. Radha became weepy when CM questioned her current feelings about her ongoing hospitalization. CM provided supportive listening for Radha to share her current fears, concerns and thoughts around her ongoing struggle. She reported she is looking forward to having the ostomy reversed on 10/15/17 as she has struggled with managing it since placement. She was pleasant in interaction and forthcoming with information. CM will continue to support Radha through her hospitalization. A: 48 year old female admitted to [facility] 09/30/18 for Fascial Dehiscence P: Radha will have her ostomy reversed on 10/15/18 per MD. She will eventually return to her mother's home in [place] when medically ready for discharge; anticipate she will resume VNA/RN supports. She had a PICC placed for TPN and continues to be closely monitored. She will transport via private vehicle with her family when ready.
--- NOTE | 2018-10-11 19:59 | CMPROGNOTE_ITS ---
Care Management Progress Note S/O: Radha was lying in bed when CM met with her. Radha became weepy when CM questioned her current feelings about her ongoing hospitalization. CM provided supportive listening for Radha to share her current fears, concerns and thoughts around her ongoing struggle. She reported she is looking forward to having the ostomy reversed on 10/15/17 as she has struggled with managing it since placement. She was pleasant in interaction and forthcoming with information. CM will continue to support Rahda through her hospitalization. A: 48 year old female admitted to [facility] 09/30/18 for Fascial Dehiscence P: Radha will have her ostomy reversed on 10/15/18 per MD. She will eventually return to her mother's home in [place] when medically ready for discharge; anticipate she will resume VNA/RN supports. She had a PICC placed for TPN and continues to be closely monitored. She will transport via private vehicle with her family when ready.
[2018-10-12] MEDS: Normal Saline 500 ML IV (00:38)
[2018-10-12 00:39] VITALS: BP 100/69; PULSE 80; RESP 19; TEMP 36; O2SAT 99
[2018-10-12] MEDS: CEFEPIME 2 GM in Normal Saline 100 ML IVPB ×2 (00:39→12:20)
[2018-10-12] MEDS: Ketorolac 30 MG/ML VIAL IVP ×2 (01:18→09:58)
[2018-10-12] MEDS: Normal Saline Flush 10 ML SYR IVP ×6 (01:18→20:33)
[2018-10-12] MEDS: HYDROmorphone 2 MG/ML VIAL IVP ×5 (01:19→18:16)
[2018-10-12 07:16] LABS: HCT 33.1 % (36.0-46.0); HGB 10.7 g/dL (12.0-15.5); Mean Corp. HGB Concentration 32.3 g/dL (32.0-36.0); Mean Corpuscular Hemoglobin 28.8 pg (27.0-33.0); Mean Corpuscular Volume 89.2 fL (80-95); Mean Platelet Volume 10.2 fL (8.0-11.0); Platelet Count 202 x1000/uL (130-400); RBC 3.71 m/cumm (4.00-5.20); RBC Distribution Width 13.6 % (11.7-14.6); White Blood Cell Count 4.49 k/cumm (4.4-10.8)
[2018-10-12 07:33] LABS: Anion Gap 7.3 mmol/L (3-11); BUN 37 mg/dL (7-18); CO2 29.7 mmol/L (21.0-32.0); Calcium 9.5 mg/dL (8.5-10.1); Chloride 100 mmol/L (98-107); Estimated GFR 59.43 (mL/min/1.73m2); Glucose 110 mg/dL (70-100); Magnesium 1.9 mg/dL (1.8-2.4); PHOSPHORUS 3.1 mg/dL (2.6-4.7); Potassium 4.1 mmol/L (3.5-5.1); Sodium 137 mmol/L (136-145)
[2018-10-12 07:35] VITALS: BP 116/78; PULSE 76; RESP 18; TEMP 36.6; O2SAT 98
[2018-10-12] MEDS: Normal Saline Flush 10 ML SYR 20 ML IVP ×2 (08:31→18:17)
--- NOTE | 2018-10-12 08:33 | W.PM.PROGNOT ---
Date of Service Date of service: 10/12/18 Time of Service: 08:33 Assessment and Plan (1) High output ileostomy: Start date: 10/12/18 Start time: 08:34 Current visit: Yes Status: Acute Patient currently n.p.o. with continued high output from her ileostomy. Patient being supplemented for the outputs with TPN and boluses as needed. Will continue current treatment and check electrolytes over the next few days prior to her surgery planned for Saturday. Subjective Patient reports: no new complaints Exam Const General: cooperative Orientation: alert and awake GI Inspection: normal to inspection Palpation: soft Percussion: normal to percussion Auscultation: normal bowel sounds Objective Objective Clinical Data: Abnormal lab results 10/12/18 10/12/18 Range/Units 06:40 06:40 RBC 3.71 L (4.00-5.20) m/cumm Hgb 10.7 L (12.0-15.5) g/dL Hct 33.1 L (36.0-46.0) % BUN 37 H (7-18) mg/dL Glucose 110 H (70-100) mg/dL Vital Signs Temperature 36 C L 10/12/18 00:39 Temperature Source Tympanic 10/12/18 00:39 Pulse 80 10/12/18 00:39 Pulse Rhythm Regular 10/12/18 06:28 Pulse 89 09/30/18 23:50 Respiratory Rate 19 10/12/18 00:39 Respiratory Effort Non-Labored 10/12/18 06:28 Respiratory Depth Normal 10/12/18 06:28 Respiratory Pattern Normal 10/12/18 06:28 Blood Pressure 100/69 10/12/18 00:39 Blood Pressure Mean 85 09/30/18 23:36 Pulse Oximetry 99 10/12/18 00:39 Oxygen Delivery Method Room Air 10/12/18 00:39 Oxygen Flow Rate 0 10/12/18 00:39 Pain Level 8 10/12/18 05:55 Comment 10/01/18 04:15 Intake & Output 10/11/18 10/11/18 10/12/18 11:59 23:59 11:59 Intake Total 1171 / 2571 1400 / 2571 1181.006 / 1181.006 Output Total 300 / 1025 725 / 1025 300 / 300 Balance 871 / 1546 675 / 1546 881.006 / 881.006 Weight 115.3 kg 116.2 kg Intake: IV 1071 / 2471 1400 / 2471 1181.006 / 1181.006 Oral 100 / 100 Output: Stool 300 / 1025 725 / 1025 300 / 300 Other: Urine Appearance Clear Comment urine not assessed at this time; pt is voiding ad claudia in toilet. pt denies any issues at this time pt voiding independently in the toilet Urine not seen, voiding independently in bathroom and flushing. Voiding Methods Toilet Toilet Toilet Laboratory Results WBC 4.49 k/cumm (4.4-10.8) 10/12/18 06:40 RBC 3.71 m/cumm (4.00-5.20) L 10/12/18 06:40 Hgb 10.7 g/dL (12.0-15.5) L 10/12/18 06:40 Hct 33.1 % (36.0-46.0) L 10/12/18 06:40 MCV 89.2 fL (80-95) 10/12/18 06:40 MCH 28.8 pg (27.0-33.0) 10/12/18 06:40 MCHC 32.3 g/dL (32.0-36.0) 10/12/18 06:40 RDW 13.6 % (11.7-14.6) 10/12/18 06:40 Plt Count 202 x1000/uL (130-400) 10/12/18 06:40 MPV 10.2 fL (8.0-11.0) 10/12/18 06:40 Immature Gran % 0.4 10/05/18 05:40 Neutrophils % 47.4 10/05/18 05:40 Lymphocytes % 27.5 10/05/18 05:40 Monocytes % 10.1 10/05/18 05:40 Eosinophils % 14.2 10/05/18 05:40 Basophils % 0.4 10/05/18 05:40 Absolute Neutrophils 2.34 k/cumm (1.2-6.7) 10/05/18 05:40 Absolute Lymphocytes 1.36 k/cumm (1.2-3.4) 10/05/18 05:40 Absolute Monocytes 0.50 k/cumm (0.11-0.7) 10/05/18 05:40 Absolute Eosinophils 0.70 k/cumm (0.0-0.7) 10/05/18 05:40 Absolute Basophils 0.02 k/cumm (0.0-0.2) 10/05/18 05:40 PT 11.4 sec (9.3-11.0) H 10/10/18 06:50 INR 1.1 (0.9-1.1) 10/10/18 06:50 APTT 24.4 sec (21.0-31.4) 10/01/18 07:00 Sodium 137 mmol/L (136-145) 10/12/18 06:40 Potassium 4.1 mmol/L (3.5-5.1) 10/12/18 06:40 Chloride 100 mmol/L (98-107) 10/12/18 06:40 Carbon Dioxide 29.7 mmol/L (21.0-32.0) 10/12/18 06:40 Anion Gap 7.3 mmol/L (3-11) 10/12/18 06:40 BUN 37 mg/dL (7-18) H 10/12/18 06:40 Creatinine 1.00 mg/dL (0.55-1.02) 10/12/18 06:40 Estimated GFR/1.73 m2 59.43 (mL/min/1.73m2) 10/12/18 06:40 Glucose 110 mg/dL (70-100) H 10/12/18 06:40 Lactate 1.1 mmol/l (0.6-1.4) 10/01/18 15:10 Calcium 9.5 mg/dL (8.5-10.1) 10/12/18 06:40 Phosphorus 3.1 mg/dL (2.6-4.7) 10/12/18 06:40 Magnesium 1.9 mg/dL (1.8-2.4) 10/12/18 06:40 Total Bilirubin 0.8 mg/dL (0.2-1.0) 10/10/18 06:50 AST 46 U/L (15-37) H 10/07/18 06:30 ALT 42 U/L (12-78) 10/10/18 06:50 Alkaline Phosphatase 87 U/L (46-116) 10/10/18 06:50 Total Protein 7.4 g/dL (6.4-8.2) 10/07/18 06:30 Albumin 2.7 g/dL (3.4-5.0) L 10/10/18 06:50 C.difficile Tox Ab Neut Cancelled 10/06/18 15:46
[2018-10-12] MEDS: LORazepam 2 MG/ML VIAL IVP ×2 (12:20→20:34)
--- NOTE | 2018-10-12 13:03 | PDOC.CMPRO ---
Care Management Progress Note S/O: Radha remains pleasant in interaction and feels well informed as she awaits reversal of her ostomy this week. She reports no additional concerns at this time. CM will continue to support Radha through her hospitalization. A: 48 year old female admitted to [facility] 09/30/18 for Fascial Dehiscence P: Radha will have her ostomy reversed on 10/15/18 per MD. She will eventually return to her mother's home in [place] when medically ready for discharge; anticipate she will resume VNA/RN supports. She had a PICC placed for TPN and continues to be closely monitored. She will transport via private vehicle with her family when ready.
--- NOTE | 2018-10-12 14:53 | NUR.NOTE ---
Nursing Note: 1445: went to pt's room to change dressing. pt is sleeping soundly at this time. will pass dressing change to next RN.
[2018-10-12 17:28] VITALS: BP 122/74; PULSE 88; RESP 16; TEMP 37.1; O2SAT 98
[2018-10-13] MEDS: Normal Saline Flush 10 ML SYR IVP ×10 (00:40→22:10)
[2018-10-13] MEDS: CEFEPIME 2 GM in Normal Saline 100 ML IVPB ×2 (00:45→11:57)
[2018-10-13 01:14] VITALS: BP 114/79; PULSE 94; RESP 16; TEMP 37; O2SAT 97
[2018-10-13] MEDS: HYDROmorphone 2 MG/ML VIAL IVP ×5 (05:22→22:09)
--- NOTE | 2018-10-13 06:56 | W.PM.PROGNOT ---
Date of Service Date of service: 10/13/18 Time of Service: 06:57 Assessment and Plan (1) High output ileostomy: Start date: 10/13/18 Start time: 06:58 Current visit: Yes Status: Acute scheduled for reversal Saturday Subjective Patient reports: no new complaints and pain is less Interval history since last seen: ileostomy output down Exam GI Inspection: normal to inspection, incision and obesity Palpation: soft Percussion: normal to percussion Auscultation: normal bowel sounds Abdomen image: 1. ileostomy Objective Objective Clinical Data: Abnormal lab results 10/12/18 10/12/18 Range/Units 06:40 06:40 RBC 3.71 L (4.00-5.20) m/cumm Hgb 10.7 L (12.0-15.5) g/dL Hct 33.1 L (36.0-46.0) % BUN 37 H (7-18) mg/dL Glucose 110 H (70-100) mg/dL Vital Signs Temperature 37 C 10/13/18 01:14 Temperature Source Tympanic 10/13/18 01:14 Pulse 94 H 10/13/18 01:14 Pulse Rhythm Regular 10/13/18 00:45 Pulse 89 09/30/18 23:50 Respiratory Rate 16 10/13/18 01:14 Respiratory Effort 10/13/18 00:45 Respiratory Depth Normal 10/13/18 00:45 Respiratory Pattern Normal 10/13/18 00:45 Blood Pressure 114/79 10/13/18 01:14 Blood Pressure Mean 85 09/30/18 23:36 Pulse Oximetry 97 10/13/18 01:14 Oxygen Delivery Method Room Air 10/13/18 01:14 Oxygen Flow Rate 0 10/13/18 01:14 Pain Level 8 10/13/18 05:22 Comment 10/01/18 04:15 Intake & Output 10/12/18 10/12/18 10/13/18 11:59 23:59 11:59 Intake Total 1181.006 / 2701.006 1520 / 2701.006 Output Total 300 / 750 450 / 750 575 / 575 Balance 881.006 / 4267.827 1633 / 1951.006 -575 / -575 Weight 116.2 kg 112.2 kg Intake: IV 1181.006 / 2601.006 1420 / 2601.006 Oral 100 / 100 Output: Stool 300 / 750 450 / 750 575 / 575 Other: Urine Appearance Clear Clear Comment Urine not seen, voiding independently in bathroom and flushing. pt voided independently in toilet Voiding Methods Toilet Toilet Laboratory Results WBC 4.49 k/cumm (4.4-10.8) 10/12/18 06:40 RBC 3.71 m/cumm (4.00-5.20) L 10/12/18 06:40 Hgb 10.7 g/dL (12.0-15.5) L 10/12/18 06:40 Hct 33.1 % (36.0-46.0) L 10/12/18 06:40 MCV 89.2 fL (80-95) 10/12/18 06:40 MCH 28.8 pg (27.0-33.0) 10/12/18 06:40 MCHC 32.3 g/dL (32.0-36.0) 10/12/18 06:40 RDW 13.6 % (11.7-14.6) 10/12/18 06:40 Plt Count 202 x1000/uL (130-400) 10/12/18 06:40 MPV 10.2 fL (8.0-11.0) 10/12/18 06:40 Immature Gran % 0.4 10/05/18 05:40 Neutrophils % 47.4 10/05/18 05:40 Lymphocytes % 27.5 10/05/18 05:40 Monocytes % 10.1 10/05/18 05:40 Eosinophils % 14.2 10/05/18 05:40 Basophils % 0.4 10/05/18 05:40 Absolute Neutrophils 2.34 k/cumm (1.2-6.7) 10/05/18 05:40 Absolute Lymphocytes 1.36 k/cumm (1.2-3.4) 10/05/18 05:40 Absolute Monocytes 0.50 k/cumm (0.11-0.7) 10/05/18 05:40 Absolute Eosinophils 0.70 k/cumm (0.0-0.7) 10/05/18 05:40 Absolute Basophils 0.02 k/cumm (0.0-0.2) 10/05/18 05:40 PT 11.4 sec (9.3-11.0) H 10/10/18 06:50 INR 1.1 (0.9-1.1) 10/10/18 06:50 APTT 24.4 sec (21.0-31.4) 10/01/18 07:00 Sodium 137 mmol/L (136-145) 10/12/18 06:40 Potassium 4.1 mmol/L (3.5-5.1) 10/12/18 06:40 Chloride 100 mmol/L (98-107) 10/12/18 06:40 Carbon Dioxide 29.7 mmol/L (21.0-32.0) 10/12/18 06:40 Anion Gap 7.3 mmol/L (3-11) 10/12/18 06:40 BUN 37 mg/dL (7-18) H 10/12/18 06:40 Creatinine 1.00 mg/dL (0.55-1.02) 10/12/18 06:40 Estimated GFR/1.73 m2 59.43 (mL/min/1.73m2) 10/12/18 06:40 Glucose 110 mg/dL (70-100) H 10/12/18 06:40 Lactate 1.1 mmol/l (0.6-1.4) 10/01/18 15:10 Calcium 9.5 mg/dL (8.5-10.1) 10/12/18 06:40 Phosphorus 3.1 mg/dL (2.6-4.7) 10/12/18 06:40 Magnesium 1.9 mg/dL (1.8-2.4) 10/12/18 06:40 Total Bilirubin 0.8 mg/dL (0.2-1.0) 10/10/18 06:50 AST 46 U/L (15-37) H 10/07/18 06:30 ALT 42 U/L (12-78) 10/10/18 06:50 Alkaline Phosphatase 87 U/L (46-116) 10/10/18 06:50 Total Protein 7.4 g/dL (6.4-8.2) 10/07/18 06:30 Albumin 2.7 g/dL (3.4-5.0) L 10/10/18 06:50 C.difficile Tox Ab Neut Cancelled 10/06/18 15:46
[2018-10-13 07:09] LABS: HCT 34.1 % (36.0-46.0); HGB 11.1 g/dL (12.0-15.5); Mean Corp. HGB Concentration 32.6 g/dL (32.0-36.0); Mean Corpuscular Hemoglobin 29.1 pg (27.0-33.0); Mean Corpuscular Volume 89.5 fL (80-95); Mean Platelet Volume 10.3 fL (8.0-11.0); Platelet Count 200 x1000/uL (130-400); RBC 3.81 m/cumm (4.00-5.20); RBC Distribution Width 13.5 % (11.7-14.6); White Blood Cell Count 4.87 k/cumm (4.4-10.8)
[2018-10-13 07:21] LABS: ALT 66 U/L (12-78); AST 62 U/L (15-37); Alkaline Phosphatase 110 U/L (46-116); Anion Gap 6.5 mmol/L (3-11); BUN 32 mg/dL (7-18); Bilirubin, Total 0.9 mg/dL (0.2-1.0); CO2 29.5 mmol/L (21.0-32.0); CREATININE 0.88 mg/dL (0.55-1.02); Calcium 9.8 mg/dL (8.5-10.1); Chloride 101 mmol/L (98-107); Glucose 118 mg/dL (70-100); Magnesium 1.8 mg/dL (1.8-2.4); PHOSPHORUS 2.5 mg/dL (2.6-4.7); Potassium 4.4 mmol/L (3.5-5.1); Sodium 137 mmol/L (136-145); Total Protein 8.3 g/dL (6.4-8.2)
[2018-10-13 08:12] VITALS: BP 118/75; PULSE 82; RESP 18; TEMP 36.8; O2SAT 96
[2018-10-13] MEDS: Ketorolac 30 MG/ML VIAL IVP ×3 (08:55→22:09)
[2018-10-13] MEDS: Normal Saline Flush 10 ML SYR 20 ML IVP ×2 (08:56→20:13)
[2018-10-13 09:53] LABS: INR 1.1 (0.9-1.1); Prothrombin Time 10.8 sec (9.3-11.0)
[2018-10-13 11:31] LABS: Prealbumin 17 mg/dL (20-40)
--- NOTE | 2018-10-13 14:39 | PDOC.CMPRO ---
- If Service Date Differs Date of service: 10/13/18 Time of Service: 14:39 Care Management Progress Note S/O: Radha is sitting up in her bed today visiting with family. Radha will go to the OR on Saturday for ostomy reversal, and continues to receive TPN at this time. No change in DC plan. A: 48 year old female admitted to [facility] 09/30/18 for Fascial Dehiscence P: Radha will have her ostomy reversed on 10/15/18 per MD. She will eventually return to her mother's home in [place] when medically ready for discharge; anticipate she will resume VNA/RN supports. She had a PICC placed for TPN and continues to be closely monitored. She will transport via private vehicle with her family when ready.
[2018-10-13] MEDS: LORazepam 2 MG/ML VIAL IVP ×2 (14:51→21:11)
[2018-10-13 18:11] VITALS: BP 124/76; PULSE 76; RESP 18; TEMP 36.9; O2SAT 96
[2018-10-14] VITALS: BP 108/63; PULSE 80; RESP 18; TEMP 37.2; O2SAT 95
[2018-10-14] MEDS: CEFEPIME 2 GM in Normal Saline 100 ML IVPB ×3 (00:49→23:20)
[2018-10-14 00:55] VITALS: RESP 16
[2018-10-14] MEDS: Ketorolac 30 MG/ML VIAL IVP ×3 (04:31→17:20)
[2018-10-14] MEDS: Normal Saline Flush 10 ML SYR IVP ×8 (04:31→22:22)
[2018-10-14] MEDS: HYDROmorphone 2 MG/ML VIAL IVP ×5 (04:31→21:34)
[2018-10-14 07:11] LABS: HCT 33.1 % (36.0-46.0); HGB 10.8 g/dL (12.0-15.5); Mean Corp. HGB Concentration 32.6 g/dL (32.0-36.0); Mean Platelet Volume 10.6 fL (8.0-11.0); Platelet Count 177 x1000/uL (130-400); RBC 3.72 m/cumm (4.00-5.20); RBC Distribution Width 13.4 % (11.7-14.6); White Blood Cell Count 4.27 k/cumm (4.4-10.8)
[2018-10-14 07:28] LABS: Anion Gap 5.9 mmol/L (3-11); CO2 29.1 mmol/L (21.0-32.0); Calcium 9.7 mg/dL (8.5-10.1); Chloride 101 mmol/L (98-107); Glucose 131 mg/dL (70-100); Magnesium 1.9 mg/dL (1.8-2.4); Potassium 4.6 mmol/L (3.5-5.1); Sodium 136 mmol/L (136-145)
[2018-10-14 07:55] LABS: PHOSPHORUS 2.6 mg/dL (2.6-4.7)
[2018-10-14 07:59] VITALS: BP 131/84; PULSE 84; RESP 18; TEMP 36.8; O2SAT 96
[2018-10-14] MEDS: Normal Saline Flush 10 ML SYR 20 ML IVP ×2 (08:27→19:27)
[2018-10-14] MEDS: LORazepam 2 MG/ML VIAL IVP ×2 (12:10→22:21)
--- NOTE | 2018-10-14 12:47 | CMPROGNOTE_ITS ---
- If Service Date Differs Date of service: 10/14/18 Time of Service: 12:45 Care Management Progress Note S/O: Radha is lying in bed watching TV when this insurance underwriter sales visits this morning. She is scheduled to go to the OR tomorrow for ostomy reversal. Radha states that she is relaxing this morning. Her [employer] visits with her shortly after CM visit. to continue to provide support to Radha throughout her hospitalization. A: 48 year old female admitted to [facility] 09/30/18 for Fascial Dehiscence P: Radha will have her ostomy reversed on 10/15/18 per MD. She will eventually return to her mother's home in [place] when medically ready for discharge; anticipate she will resume VNA/RN supports. She had a PICC placed for TPN and continues to be closely monitored. She will transport via private vehicle with her family when ready.
[2018-10-14 16:13] VITALS: BP 107/62; PULSE 90; RESP 18; TEMP 36.8; O2SAT 100
--- NOTE | 2018-10-14 19:35 | NUR.NOTE ---
Nursing Note: Report received from off going nurse, patient is currently resting in bed, no report of pain or discomfort at this time, the bed is in the low and locked position, side rails up x2, call light within reach.
--- NOTE | 2018-10-14 21:39 | NUR.NOTE ---
Nursing Note: Called to bedside by patient, she is requesting prn pain medication for abdominal pain 04/11. Will treat per MD orders.
--- NOTE | 2018-10-14 22:24 | NUR.NOTE ---
Nursing Note: Called to bedside by patient, requesting prn Ativan. Will treat per MD orders.
[2018-10-14 23:40] VITALS: BP 105/68; PULSE 82; RESP 18; TEMP 36.2; O2SAT 99
[2018-10-15] VITALS (14 sets, daily range): BP systolic 100–142; BP diastolic 50–85; PULSE 81–93; RESP 15–26; TEMP 36–36.7; O2SAT 93–99
[2018-10-15] MEDS: Ketorolac 30 MG/ML VIAL IVP ×3 (01:36→18:07)
[2018-10-15] MEDS: HYDROmorphone 2 MG/ML VIAL IVP ×11 (01:36→22:16)
[2018-10-15] MEDS: Normal Saline Flush 10 ML SYR IVP ×8 (01:37→22:16)
--- NOTE | 2018-10-15 06:33 | W.PM.PROGNOT ---
Documented by User: KUSHAL Jones 10/15/18 06:35 Date of Service Date of service: 10/14/18 Time of Service: 07:00 Assessment and Plan (1) High output ileostomy: Current visit: Yes Status: Acute Continue with TPN and IV fluids. Ileostomy reversal is scheduled for tomorrow. Subjective Interval history since last seen: Dominique reports that she is doing okay. She is starting to get nervous about her procedure tomorrow. She was emotional talking about wanting to return to work and home. Exam Const General: cooperative, healthy appearing and no acute distress Orientation: alert and oriented x3 Resp Effort & Inspection: normal respiratory effort, no audible wheezes and no cough Auscultation: clear to auscultation bilaterally and no wheezes Cardio Jugular venous pressure: no JVD Objective Objective Clinical Data: Abnormal lab results 10/14/18 10/14/18 Range/Units 06:30 06:30 WBC 4.27 L (4.4-10.8) k/cumm RBC 3.72 L (4.00-5.20) m/cumm Hgb 10.8 L (12.0-15.5) g/dL Hct 33.1 L (36.0-46.0) % Glucose 131 H (70-100) mg/dL Vital Signs Temperature 36.2 C L 10/14/18 23:40 Temperature Source Tympanic 10/14/18 23:40 Pulse 82 10/14/18 23:40 Pulse Rhythm Regular 10/14/18 21:55 Pulse 89 09/30/18 23:50 Respiratory Rate 18 10/14/18 23:40 Respiratory Effort Non-Labored 10/14/18 21:55 Respiratory Depth Normal 10/14/18 21:55 Respiratory Pattern Normal 10/14/18 21:55 Blood Pressure 105/68 10/14/18 23:40 Blood Pressure Mean 85 09/30/18 23:36 Pulse Oximetry 99 10/14/18 23:40 Oxygen Delivery Method Room Air 10/14/18 23:40 Oxygen Flow Rate 0 10/14/18 23:40 Pain Level 8 10/15/18 05:37 Comment 10/01/18 04:15 Intake & Output 10/14/18 10/14/18 10/15/18 11:59 23:59 11:59 Intake Total 2089.383 / 3620.383 1531 / 3620.383 Output Total 450 / 450 650 / 650 Balance 1639.383 / 3170.383 1531 / 3170.383 -650 / -650 Weight 113.8 kg Intake: IV 2088.383 / 3620.383 1531 / 3620.383 Output: Stool 450 / 450 650 / 650 Other: Voiding Methods Toilet Laboratory Results WBC 4.27 k/cumm (4.4-10.8) L 10/14/18 06:30 RBC 3.72 m/cumm (4.00-5.20) L 10/14/18 06:30 Hgb 10.8 g/dL (12.0-15.5) L 10/14/18 06:30 Hct 33.1 % (36.0-46.0) L 10/14/18 06:30 MCV 89.0 fL (80-95) 10/14/18 06:30 MCH 29.0 pg (27.0-33.0) 10/14/18 06:30 MCHC 32.6 g/dL (32.0-36.0) 10/14/18 06:30 RDW 13.4 % (11.7-14.6) 10/14/18 06:30 Plt Count 177 x1000/uL (130-400) 10/14/18 06:30 MPV 10.6 fL (8.0-11.0) 10/14/18 06:30 Immature Gran % 0.4 10/05/18 05:40 Neutrophils % 47.4 10/05/18 05:40 Lymphocytes % 27.5 10/05/18 05:40 Monocytes % 10.1 10/05/18 05:40 Eosinophils % 14.2 10/05/18 05:40 Basophils % 0.4 10/05/18 05:40 Absolute Neutrophils 2.34 k/cumm (1.2-6.7) 10/05/18 05:40 Absolute Lymphocytes 1.36 k/cumm (1.2-3.4) 10/05/18 05:40 Absolute Monocytes 0.50 k/cumm (0.11-0.7) 10/05/18 05:40 Absolute Eosinophils 0.70 k/cumm (0.0-0.7) 10/05/18 05:40 Absolute Basophils 0.02 k/cumm (0.0-0.2) 10/05/18 05:40 PT 10.8 sec (9.3-11.0) 10/13/18 09:05 INR 1.1 (0.9-1.1) 10/13/18 09:05 APTT 24.4 sec (21.0-31.4) 10/01/18 07:00 Sodium 136 mmol/L (136-145) 10/14/18 06:30 Potassium 4.6 mmol/L (3.5-5.1) 10/14/18 06:30 Chloride 101 mmol/L (98-107) 10/14/18 06:30 Carbon Dioxide 29.1 mmol/L (21.0-32.0) 10/14/18 06:30 Anion Gap 5.9 mmol/L (3-11) 10/14/18 06:30 BUN 32 mg/dL (7-18) H 10/13/18 06:26 Creatinine 0.88 mg/dL (0.55-1.02) 10/13/18 06:26 Estimated GFR/1.73 m2 >= 60.00 (mL/min/1.73m2) 10/13/18 06:26 Glucose 131 mg/dL (70-100) H 10/14/18 06:30 Lactate 1.1 mmol/l (0.6-1.4) 10/01/18 15:10 Calcium 9.7 mg/dL (8.5-10.1) 10/14/18 06:30 Phosphorus 2.6 mg/dL (2.6-4.7) 10/14/18 06:30 Magnesium 1.9 mg/dL (1.8-2.4) 10/14/18 06:30 Total Bilirubin 0.9 mg/dL (0.2-1.0) 10/13/18 06:26 AST 62 U/L (15-37) H 10/13/18 06:26 ALT 66 U/L (12-78) 10/13/18 06:26 Alkaline Phosphatase 110 U/L (46-116) 10/13/18 06:26 Total Protein 8.3 g/dL (6.4-8.2) H 10/13/18 06:26 Albumin 3.0 g/dL (3.4-5.0) L 10/13/18 06:26 Prealbumin 17 mg/dL (20-40) L 10/10/18 06:50 C.difficile Tox Ab Neut Cancelled 10/06/18 15:46 Documented by User: Maynor Curtis III, DO 10/15/18 10:12
--- NOTE | 2018-10-15 06:56 | NUR.NOTE ---
Nursing Note: Patient transported to pre-op holding area via stretcher. Report given to receiving nurse.
[2018-10-15 07:40] LABS: HCT 32.2 % (36.0-46.0); HGB 10.4 g/dL (12.0-15.5); Mean Corp. HGB Concentration 32.3 g/dL (32.0-36.0); Mean Corpuscular Hemoglobin 28.7 pg (27.0-33.0); Mean Platelet Volume 11.1 fL (8.0-11.0); Platelet Count 170 x1000/uL (130-400); RBC 3.62 m/cumm (4.00-5.20); RBC Distribution Width 13.4 % (11.7-14.6); White Blood Cell Count 4.46 k/cumm (4.4-10.8)
[2018-10-15 07:48] LABS: Anion Gap 7.7 mmol/L (3-11); CO2 27.3 mmol/L (21.0-32.0); Calcium 9.8 mg/dL (8.5-10.1); Chloride 99 mmol/L (98-107); Glucose 121 mg/dL (70-100); Magnesium 1.8 mg/dL (1.8-2.4); PHOSPHORUS 2.1 mg/dL (2.6-4.7); Potassium 4.5 mmol/L (3.5-5.1); Sodium 134 mmol/L (136-145)
[2018-10-15] MEDS: Lactated Ringers 1,000 ML 30 ML IV ×2 (07:56→12:14)
--- NOTE | 2018-10-15 08:58 | BOWEL_PTH ---
PATIENT: Radha Parada LOC: U#:[id number] AGE/SX: 48/F ROOM: 216 RE09/30/[address]: Helen Leger : 1970 BED: A DIS: 10/31/2018 SPEC #: [id number] RECD: 10/15/18 13:03 STATUS: AMADOU BAILEY #: [id number] RAYNE: 10/15/18 08:[address]: Maynor Curtis III DEPT: Surgical Specimen RECD BY: Poppy Romo ENTERED: 10/15/18 13:03 SP TYPE: Bowel OTHR DR: Danna Gonzalez Tissues: 1 - BOWEL/OSTOMY STOMA Procedures: GROSS AND MICRO LEVEL 3 Comments: [id number]
[2018-10-15] MEDS: Bupivacaine 0.5% Pres-Free 30 ML VIAL (09:26)
--- NOTE | 2018-10-15 09:52 | W.PM.OP ---
Date of service: 10/15/18 Time of Service: 09:52 Operative Note DATE OF PROCEDURE: 10/15/18 PRE-OP DIAGNOSIS: protective ileostomy, wound infection POST-OP DIAGNOSIS: other (small bowel) PROCEDURE: Ileostomy reversal SHERITA Wound debridement and placement of wound VAC SURGEON: Maynor Curtis III ASSISTING SURGEON: Ayala Mittal SOIL SURVEYOR: Elma Resendiz ANESTHESIA: GETA ESTIMATED BLOOD LOSS: 50 PATHOLOGY: other (small bowel) COMPLICATIONS: None Patient was transported to: PACU Indications: Patient was having high output ileostomy between 3-4 L a day Procedure Description: Patient was seen preoperatively all risks benefits and alternatives were discussed with patient in detail and consent was obtained. Patient was brought to the operating room and placed on the operating table supine fashion. Patient underwent general anesthesia endotracheal intubation. A thorough timeout was done with the entire or staff present. patient's abdomen was prepped and draped in a sterile fashion and a sterile gauze was used to stop the outflow from the ileostomy by plugging it in the actual proximal and. Patient had Ioban dressing applied. Patient had circumferential incision around the ileostomy with blunt dissection along with Bovie cautery and Metzenbaum scissors to free the small bowel circumferentially from the fascia. Once freed and the abdomen was entered multiple adhesions were lysed on the inside of the abdomen to allow for mobility of the small bowel as well as area for the bowel to be reduced after the anastomosis was created. With the small bowel completely mobile 2 enterotomies were placed on the proximal and distal portion of the small bowel and a 80 LIZETH was inserted and fired creating a common channel. At this point Allis clamps were placed on the enterotomies and the small bowel was transected at the enterotomy sites just distal with a 80 LIZETH stapler. The anastomosis was palpated and adequate room was created on the small bowel anastomosis. The mesentery and the ileostomy were removed with clamp and sew technique and closure of the mesenteric decrease defect with Vicryl suture. Patient had copious irrigation of the wound. Patient had interrupted [id number] PDS suture was used to close the fascia. And the skin was left open and a wound VAC applied per Once this procedure was completed the wound was addressed patient had a large midline wound from her initial surgery with evidence of wound infection in the upper and lower portions of the wound was opened and debrided of all fibrinous material. There were areas of pus and sharp debridement needed with Metzenbaum scissors of all devitalized and infected tissue. The wound measured 26 x 6 x 3 cm and a wound VAC was applied to this as well. Patient tolerated procedure well was transferred the PACU and then floor upon full recovery from anesthesia thorough debriefing was done with the entire or staff present.
--- NOTE | 2018-10-15 11:52 | PDOC.CMPRO ---
- If Service Date Differs Date of service: 10/15/18 Time of Service: 11:52 Care Management Progress Note S/O: CM attempted to visit with Radha this morning, however she has gone to the OR already for ostomy reversal. Radha's family is very supportive, and will continue to support her throughout her recovery. DC plan remains unchanged at this time. A: 48 year old female admitted to [facility] 09/30/18 for Fascial Dehiscence P: Radha will have her ostomy reversed today. She will eventually return to her mother's home in [place] when medically ready for discharge; anticipate she will resume VNA/RN supports. She had a PICC placed for TPN and continues to be closely monitored. She will transport via private vehicle with her family when ready.
[2018-10-15] MEDS: Normal Saline Flush 10 ML SYR 20 ML IVP ×2 (12:15→19:54)
[2018-10-15] MEDS: CEFEPIME 2 GM in Normal Saline 100 ML IVPB ×2 (12:15→23:20)
[2018-10-15] MEDS: Acetaminophen 325 MG TAB 650 MG PO ×2 (12:17→18:06)
--- NOTE | 2018-10-15 12:24 | CMPROGNOTE_ITS ---
- If Service Date Differs Date of service: 10/15/18 Time of Service: 11:52 Care Management Progress Note S/O: CM attempted to visit with Radha this morning, however she has gone to the OR already for ostomy reversal. Radha's family is very supportive, and will continue to support her throughout her recovery. DC plan remains unchanged at this time. A: 48 year old female admitted to [facility] 09/30/18 for Fascial Dehiscence P: Radha will have her ostomy reversed today. She will eventually return to her mother's home in [place] when medically ready for discharge; anticipate she will resume VNA/RN supports. She had a PICC placed for TPN and continues to be closely monitored. She will transport via private vehicle with her family when ready.
[2018-10-15] MEDS: Insulin Aspart 300 UNITS/3 ML PEN SC ×2 (12:29→17:38)
[2018-10-15] MEDS: LORazepam 2 MG/ML VIAL IVP (16:43)
[2018-10-16] MEDS: Normal Saline Flush 10 ML SYR IVP ×8 (00:31→22:18)
[2018-10-16] MEDS: HYDROmorphone 2 MG/ML VIAL IVP ×10 (00:31→22:17)
[2018-10-16] MEDS: Ketorolac 30 MG/ML VIAL IVP ×4 (00:31→20:10)
[2018-10-16] MEDS: Ondansetron 4 MG/2 ML VIAL IVP (06:32)
[2018-10-16 07:25] VITALS: BP 149/76; PULSE 88; RESP 18; TEMP 37.1; O2SAT 99
--- NOTE | 2018-10-16 07:26 | CMPROGNOTE_ITS ---
- If Service Date Differs Date of service: 10/16/18 Time of Service: 07:26 Care Management Progress Note S/O: Radha is lying in bed when this video games storywriter visits this afternoon. Radha states that her day has been rough and that she has had a lot of pain. KUSHAL Wills, was just in to meet with Radha and Radha states that she discussed her pain with her. Radha showed this video games storywriter her wound which has a wound vac placed on it. Radha states I think I'm still going to need some home health when I go home. No change in DC plan at this time. A: 48 year old female admitted to [facility] 09/30/18 for Fascial Dehiscence P: Radha will eventually return to her mother's home in [place] when medically ready for discharge; anticipate she will resume VNA/RN supports. She had a PICC placed for TPN and continues to be closely monitored. She will transport via private vehicle with her family when ready.
[2018-10-16 07:38] LABS: HCT 29.4 % (36.0-46.0); HGB 9.7 g/dL (12.0-15.5); Mean Corpuscular Hemoglobin 29.1 pg (27.0-33.0); Mean Corpuscular Volume 88.3 fL (80-95); Mean Platelet Volume 11.1 fL (8.0-11.0); Platelet Count 183 x1000/uL (130-400); RBC 3.33 m/cumm (4.00-5.20); RBC Distribution Width 13.1 % (11.7-14.6); White Blood Cell Count 6.24 k/cumm (4.4-10.8)
[2018-10-16 08:03] LABS: Calcium 9.2 mg/dL (8.5-10.1); Glucose 121 mg/dL (70-100); PHOSPHORUS 1.8 mg/dL (2.6-4.7)
--- NOTE | 2018-10-16 09:26 | W.PM.PROGNOT ---
Date of Service Date of service: 10/16/18 Time of Service: 09:26 Assessment and Plan (1) H/O ileostomy: Start date: 10/16/18 Start time: 09:29 Current visit: Yes Status: Chronic Status post reversal from yesterday currently doing well. Pain in the surgical site at the place where the ileostomy was in the left lower quadrant. Patient otherwise doing well will be out of bed and ambulatory today. Patient needing pain meds but appropriate for the surgery she had and the timing (2) Postoperative abdominal pain: Start date: 10/16/18 Start time: 09:30 Current visit: Yes Status: Acute Vision having left lower quadrant pain at site of ileostomy reversal all expected tolerating the pain meds well will be out of bed we will continue n.p.o. Subjective Patient reports: no new complaints and pain is less Interval history since last seen: POD 1 Exam Const General: cooperative Orientation: alert, awake and oriented x3 GI Inspection: normal to inspection Palpation: soft and tender (at site of previous ileostomy) in the LLQ Percussion: normal to percussion Auscultation: hypoactive bowel sounds Abdomen image: 1. open midline wound - wound vac in place 2. open wound (ileostomy site) wound vac in place Objective Objective Clinical Data: Abnormal lab results 10/16/18 10/16/18 Range/Units 06:42 06:42 RBC 3.33 L (4.00-5.20) m/cumm Hgb 9.7 L (12.0-15.5) g/dL Hct 29.4 L (36.0-46.0) % MPV 11.1 H (8.0-11.0) fL Glucose 121 H (70-100) mg/dL Phosphorus 1.8 L (2.6-4.7) mg/dL Vital Signs Temperature 37.1 C 10/16/18 07:25 Temperature Source Tympanic 10/16/18 07:25 Pulse 88 10/16/18 07:25 Pulse Rhythm Regular 10/15/18 20:37 Pulse 89 09/30/18 23:50 Respiratory Rate 18 10/16/18 07:25 Respiratory Effort Non-Labored 10/15/18 20:37 Respiratory Depth Normal 10/15/18 20:37 Respiratory Pattern Normal 10/15/18 20:37 Blood Pressure 149/76 H 10/16/18 07:25 Blood Pressure Mean 85 09/30/18 23:36 Pulse Oximetry 99 10/16/18 07:25 Oxygen Delivery Method Room Air 10/16/18 07:25 Oxygen Flow Rate 0 10/16/18 07:25 Pain Level 8 10/16/18 07:30 Comment 10/01/18 04:15 Intake & Output 10/15/18 10/15/18 10/16/18 11:59 23:59 11:59 Intake Total 1781 / 3787.5 2005.5 / 3787.5 1031 / 1031 Output Total 900 / 1800 900 / 1800 450 / 450 Balance 881 / 1986.5 1106.5 / 1987.5 581 / 581 Weight 115.7 kg Intake: IV 1781 / 3467.5 1686.5 / 3467.5 1031 / 1031 Oral 320 / 320 Output: Urine 150 / 1050 900 / 1050 450 / 450 Stool 650 / 650 Estimated Blood Loss 100 / 100 Other: Urine Color Yellow Light Sharmaine Urine Appearance Clear Clear Urine Odor Normal Comment Void x1 in the bedside commode. Emesis Description None Voiding Methods Bedside Commode Laboratory Results WBC 6.24 k/cumm (4.4-10.8) D 10/16/18 06:42 RBC 3.33 m/cumm (4.00-5.20) L 10/16/18 06:42 Hgb 9.7 g/dL (12.0-15.5) L 10/16/18 06:42 Hct 29.4 % (36.0-46.0) L 10/16/18 06:42 MCV 88.3 fL (80-95) 10/16/18 06:42 MCH 29.1 pg (27.0-33.0) 10/16/18 06:42 MCHC 33.0 g/dL (32.0-36.0) 10/16/18 06:42 RDW 13.1 % (11.7-14.6) 10/16/18 06:42 Plt Count 183 x1000/uL (130-400) 10/16/18 06:42 MPV 11.1 fL (8.0-11.0) H 10/16/18 06:42 Immature Gran % 0.4 10/05/18 05:40 Neutrophils % 47.4 10/05/18 05:40 Lymphocytes % 27.5 10/05/18 05:40 Monocytes % 10.1 10/05/18 05:40 Eosinophils % 14.2 10/05/18 05:40 Basophils % 0.4 10/05/18 05:40 Absolute Neutrophils 2.34 k/cumm (1.2-6.7) 10/05/18 05:40 Absolute Lymphocytes 1.36 k/cumm (1.2-3.4) 10/05/18 05:40 Absolute Monocytes 0.50 k/cumm (0.11-0.7) 10/05/18 05:40 Absolute Eosinophils 0.70 k/cumm (0.0-0.7) 10/05/18 05:40 Absolute Basophils 0.02 k/cumm (0.0-0.2) 10/05/18 05:40 PT 10.8 sec (9.3-11.0) 10/13/18 09:05 INR 1.1 (0.9-1.1) 10/13/18 09:05 APTT 24.4 sec (21.0-31.4) 10/01/18 07:00 Sodium 134 mmol/L (136-145) L 10/15/18 06:37 Potassium 4.5 mmol/L (3.5-5.1) 10/15/18 06:37 Chloride 99 mmol/L (98-107) 10/15/18 06:37 Carbon Dioxide 27.3 mmol/L (21.0-32.0) 10/15/18 06:37 Anion Gap 7.7 mmol/L (3-11) 10/15/18 06:37 BUN 32 mg/dL (7-18) H 10/13/18 06:26 Creatinine 0.88 mg/dL (0.55-1.02) 10/13/18 06:26 Estimated GFR/1.73 m2 >= 60.00 (mL/min/1.73m2) 10/13/18 06:26 Glucose 121 mg/dL (70-100) H 10/16/18 06:42 Lactate 1.1 mmol/l (0.6-1.4) 10/01/18 15:10 Calcium 9.2 mg/dL (8.5-10.1) 10/16/18 06:42 Phosphorus 1.8 mg/dL (2.6-4.7) L 10/16/18 06:42 Magnesium 2.0 mg/dL (1.8-2.4) 10/16/18 06:42 Total Bilirubin 0.9 mg/dL (0.2-1.0) 10/13/18 06:26 AST 62 U/L (15-37) H 10/13/18 06:26 ALT 66 U/L (12-78) 10/13/18 06:26 Alkaline Phosphatase 110 U/L (46-116) 10/13/18 06:26 Total Protein 8.3 g/dL (6.4-8.2) H 10/13/18 06:26 Albumin 3.0 g/dL (3.4-5.0) L 10/13/18 06:26 Prealbumin 17 mg/dL (20-40) L 10/10/18 06:50 C.difficile Tox Ab Neut Cancelled 10/06/18 15:46
[2018-10-16] MEDS: Normal Saline Flush 10 ML SYR 20 ML IVP ×2 (10:37→19:53)
[2018-10-16] MEDS: CEFEPIME 2 GM in Normal Saline 100 ML IVPB (11:56)
[2018-10-16 12:13] VITALS: BP 149/72; PULSE 85; RESP 18; TEMP 37; O2SAT 97
[2018-10-16 13:44] VITALS: BP 118/73; PULSE 89; RESP 18; TEMP 37.5; O2SAT 100
[2018-10-16] MEDS: LORazepam 2 MG/ML VIAL IVP ×2 (13:45→20:10)
[2018-10-16 16:08] VITALS: BP 127/80; PULSE 92; RESP 20; TEMP 36.8; O2SAT 98
[2018-10-17] VITALS (7 sets, daily range): BP systolic 104–136; BP diastolic 65–79; PULSE 91–101; RESP 18–20; TEMP 37.1–37.5; O2SAT 94–100
[2018-10-17] MEDS: Normal Saline Flush 10 ML SYR IVP ×6 (00:32→21:17)
[2018-10-17] MEDS: HYDROmorphone 2 MG/ML VIAL IVP ×10 (00:32→21:16)
[2018-10-17] MEDS: Normal Saline 500 ML 200 ML IV (00:36)
[2018-10-17] MEDS: CEFEPIME 2 GM in Normal Saline 100 ML IVPB ×2 (00:38→12:51)
[2018-10-17] MEDS: Ketorolac 30 MG/ML VIAL IVP ×3 (04:36→17:14)
[2018-10-17 07:20] LABS: HCT 28.9 % (36.0-46.0); HGB 9.3 g/dL (12.0-15.5); Mean Corp. HGB Concentration 32.2 g/dL (32.0-36.0); Mean Corpuscular Hemoglobin 28.8 pg (27.0-33.0); Mean Corpuscular Volume 89.5 fL (80-95); Mean Platelet Volume 10.9 fL (8.0-11.0); Platelet Count 170 x1000/uL (130-400); RBC 3.23 m/cumm (4.00-5.20); RBC Distribution Width 13.5 % (11.7-14.6); White Blood Cell Count 6.11 k/cumm (4.4-10.8)
[2018-10-17 07:28] LABS: INR 1.1 (0.9-1.1); Prothrombin Time 10.8 sec (9.3-11.0)
[2018-10-17] MEDS: LORazepam 2 MG/ML VIAL IVP ×2 (07:39→19:19)
[2018-10-17 07:42] LABS: ALT 123 U/L (12-78); AST 64 U/L (15-37); Albumin 2.4 g/dL (3.4-5.0); Alkaline Phosphatase 118 U/L (46-116); Anion Gap 7.9 mmol/L (3-11); BUN 33 mg/dL (7-18); CO2 25.1 mmol/L (21.0-32.0); CREATININE 0.89 mg/dL (0.55-1.02); Calcium 8.8 mg/dL (8.5-10.1); Chloride 102 mmol/L (98-107); Glucose 117 mg/dL (70-100); Magnesium 1.6 mg/dL (1.8-2.4); PHOSPHORUS 2.4 mg/dL (2.6-4.7); Potassium 4.6 mmol/L (3.5-5.1); Sodium 135 mmol/L (136-145); Total Protein 7.1 g/dL (6.4-8.2)
--- NOTE | 2018-10-17 07:42 | W.PM.PROGNOT ---
Date of Service Date of service: 10/17/18 Time of Service: 07:43 Assessment and Plan (1) H/O ileostomy: Current visit: Yes Status: Chronic POD #2. Pain over night was well controlled with Ativan and Dilaudid. No BM or flatus. Encouraged her to continue to ambulate during the day and to sit in the recliner chair as tolerated. Currently NPO. Would like her to pass flatus or increased bowel sounds prior to progressing her diet. (2) Postoperative abdominal pain: Current visit: Yes Status: Acute Subjective Interval history since last seen: POD #2. Patient reports intermittent sharp, burning pain in the LLQ. She describes gurgling. Denies flatus or BM. Exam Const General: cooperative, healthy appearing and no acute distress Orientation: alert and oriented x3 Resp Effort & Inspection: normal respiratory effort, no audible wheezes and no cough Auscultation: clear to auscultation bilaterally Cardio Jugular venous pressure: no JVD Palpation: normal PMI Rate: regular rate Rhythm: regular rhythm Heart Sounds: S1 normal, S2 normal and no murmurs GI Inspection: normal to inspection and non-distended Palpation: soft, no guarding and tender in the LLQ Auscultation: absent bowel sounds Objective Objective Clinical Data: Abnormal lab results 10/16/18 10/16/18 10/17/18 Range/Units 06:42 06:42 06:50 RBC 3.33 L 3.23 L (4.00-5.20) m/cumm Hgb 9.7 L 9.3 L (12.0-15.5) g/dL Hct 29.4 L 28.9 L (36.0-46.0) % MPV 11.1 H (8.0-11.0) fL Glucose 121 H (70-100) mg/dL Phosphorus 1.8 L (2.6-4.7) mg/dL Vital Signs Temperature 36.8 C 10/16/18 16:08 Temperature Source Tympanic 10/16/18 16:08 Pulse 92 H 10/16/18 16:08 Pulse Rhythm Regular 10/16/18 19:00 Pulse 89 09/30/18 23:50 Respiratory Rate 20 10/16/18 16:08 Respiratory Effort Non-Labored 10/16/18 19:00 Respiratory Depth Normal 10/16/18 19:00 Respiratory Pattern Normal 10/16/18 19:00 Blood Pressure 127/80 10/16/18 16:08 Blood Pressure Mean 85 09/30/18 23:36 Pulse Oximetry 98 10/16/18 16:08 Oxygen Delivery Method Room Air 10/16/18 16:08 Oxygen Flow Rate 0 10/16/18 16:08 Pain Level 8 10/17/18 07:39 Comment 10/01/18 04:15 Intake & Output 10/16/18 10/16/18 10/17/18 11:59 23:59 11:59 Intake Total 1031 / 3388.833 2357.833 / 3388.833 186.667 / 186.667 Output Total 450 / 1750 1300 / 1750 900 / 900 Balance 581 / 2039.524 2948.833 / 1638.833 -713.333 / -713.333 Weight 114.3 kg 117.7 kg Intake: IV 1031 / 3288.833 2257.833 / 3288.833 186.667 / 186.667 Oral 100 / 100 Output: Urine 450 / 1750 1300 / 1750 900 / 900 Other: Urine Color Yellow Yellow Urine Appearance Clear Clear Clear Cloudy Urine Odor Normal Voiding Methods Bedside Commode Bedside Commode Laboratory Results WBC 6.11 k/cumm (4.4-10.8) 10/17/18 06:50 RBC 3.23 m/cumm (4.00-5.20) L 10/17/18 06:50 Hgb 9.3 g/dL (12.0-15.5) L 10/17/18 06:50 Hct 28.9 % (36.0-46.0) L 10/17/18 06:50 MCV 89.5 fL (80-95) 10/17/18 06:50 MCH 28.8 pg (27.0-33.0) 10/17/18 06:50 MCHC 32.2 g/dL (32.0-36.0) 10/17/18 06:50 RDW 13.5 % (11.7-14.6) 10/17/18 06:50 Plt Count 170 x1000/uL (130-400) 10/17/18 06:50 MPV 10.9 fL (8.0-11.0) 10/17/18 06:50 Immature Gran % 0.4 10/05/18 05:40 Neutrophils % 47.4 10/05/18 05:40 Lymphocytes % 27.5 10/05/18 05:40 Monocytes % 10.1 10/05/18 05:40 Eosinophils % 14.2 10/05/18 05:40 Basophils % 0.4 10/05/18 05:40 Absolute Neutrophils 2.34 k/cumm (1.2-6.7) 10/05/18 05:40 Absolute Lymphocytes 1.36 k/cumm (1.2-3.4) 10/05/18 05:40 Absolute Monocytes 0.50 k/cumm (0.11-0.7) 10/05/18 05:40 Absolute Eosinophils 0.70 k/cumm (0.0-0.7) 10/05/18 05:40 Absolute Basophils 0.02 k/cumm (0.0-0.2) 10/05/18 05:40 PT 10.8 sec (9.3-11.0) 10/17/18 06:50 INR 1.1 (0.9-1.1) 10/17/18 06:50 APTT 24.4 sec (21.0-31.4) 10/01/18 07:00 Sodium 134 mmol/L (136-145) L 10/15/18 06:37 Potassium 4.5 mmol/L (3.5-5.1) 10/15/18 06:37 Chloride 99 mmol/L (98-107) 10/15/18 06:37 Carbon Dioxide 27.3 mmol/L (21.0-32.0) 10/15/18 06:37 Anion Gap 7.7 mmol/L (3-11) 10/15/18 06:37 BUN 32 mg/dL (7-18) H 10/13/18 06:26 Creatinine 0.88 mg/dL (0.55-1.02) 10/13/18 06:26 Estimated GFR/1.73 m2 >= 60.00 (mL/min/1.73m2) 10/13/18 06:26 Glucose 121 mg/dL (70-100) H 10/16/18 06:42 Lactate 1.1 mmol/l (0.6-1.4) 10/01/18 15:10 Calcium 9.2 mg/dL (8.5-10.1) 10/16/18 06:42 Phosphorus 1.8 mg/dL (2.6-4.7) L 10/16/18 06:42 Magnesium 2.0 mg/dL (1.8-2.4) 10/16/18 06:42 Total Bilirubin 0.9 mg/dL (0.2-1.0) 10/13/18 06:26 AST 62 U/L (15-37) H 10/13/18 06:26 ALT 66 U/L (12-78) 10/13/18 06:26 Alkaline Phosphatase 110 U/L (46-116) 10/13/18 06:26 Total Protein 8.3 g/dL (6.4-8.2) H 10/13/18 06:26 Albumin 3.0 g/dL (3.4-5.0) L 10/13/18 06:26 Prealbumin 17 mg/dL (20-40) L 10/10/18 06:50 C.difficile Tox Ab Neut Cancelled 10/06/18 15:46
[2018-10-17] MEDS: Normal Saline Flush 10 ML SYR 20 ML IVP ×2 (10:33→19:20)
[2018-10-17] MEDS: Insulin Aspart 300 UNITS/3 ML PEN SC (13:01)
--- NOTE | 2018-10-17 14:06 | PDOC.CMPRO ---
- If Service Date Differs Date of service: 10/17/18 Time of Service: 14:06 Care Management Progress Note S/O: Radha is lying in bed when this jingle writer visits this afternoon, she is pleasant and receptive to discussion. Radha states that she has been having ice chips today and some sips of water. Radha states that she feels as though a hot beverage such as coffee or tea would help her bowels move. SUSAN notified SHMUEL Castano, of Radha's request. Rad[facility] also [facility]US[facility] has also been in contact with. A: 48 year old female admitted to [facility] 09/30/18 for Fascial Dehiscence P: Radha will eventually return to her mother's home in [place] when medically ready for discharge; anticipate she will resume VNA/RN supports. She had a PICC placed for TPN and continues to be closely monitored. She will transport via private vehicle with her family when ready.
--- NOTE | 2018-10-17 14:11 | CMPROGNOTE_ITS ---
- If Service Date Differs Date of service: 10/17/18 Time of Service: 14:06 Care Management Progress Note S/O: Radha is lying in bed when this hand sign writer visits this afternoon, she is pleasant and receptive to discussion. Radha states that she has been having ice chips today and some sips of water. Radha states that she feels as though a hot beverage such as coffee or tea would help her bowels move. SUSAN notified SHMUEL Castano, of Radha's request. Radha also states that she has spoken with Gregory THOMAS whom SUSAN has also been in contact with. A: 48 year old female admitted to [facility] 09/30/18 for Fascial Dehiscence P: Radha will eventually return to her mother's home in [place] when medically ready for discharge; anticipate she will resume VNA/RN supports. She had a PICC placed for TPN and continues to be closely monitored. She will transport via private vehicle with her family when ready.
--- NOTE | 2018-10-17 14:18 | CHAPLAIN ---
I visited with Radha yesterday (10/16) to give her a Reyna's comfort shawl. She was in a great deal of pain and I let her nurse, Omaira Acosta RN, know. Omaira was working hard to help Radha manage her pain.
[2018-10-18] MEDS: Normal Saline Flush 10 ML SYR IVP ×12 (00:13→23:42)
[2018-10-18] MEDS: HYDROmorphone 2 MG/ML VIAL IVP ×9 (00:14→22:32)
[2018-10-18] MEDS: Acetaminophen 325 MG TAB 650 MG PO ×2 (00:14→10:30)
[2018-10-18] MEDS: CEFEPIME 2 GM in Normal Saline 100 ML IVPB ×3 (01:04→23:41)
[2018-10-18] MEDS: LORazepam 2 MG/ML VIAL IVP ×3 (02:35→16:54)
[2018-10-18 07:41] VITALS: BP 103/71; PULSE 97; RESP 19; TEMP 37; O2SAT 99
[2018-10-18 08:02] LABS: HCT 28.6 % (36.0-46.0); HGB 9.3 g/dL (12.0-15.5); Mean Corp. HGB Concentration 32.5 g/dL (32.0-36.0); Mean Corpuscular Volume 89.1 fL (80-95); Mean Platelet Volume 10.6 fL (8.0-11.0); Platelet Count 175 x1000/uL (130-400); RBC 3.21 m/cumm (4.00-5.20); RBC Distribution Width 13.3 % (11.7-14.6); White Blood Cell Count 5.56 k/cumm (4.4-10.8)
[2018-10-18 08:12] LABS: Anion Gap 9.9 mmol/L (3-11); CO2 24.1 mmol/L (21.0-32.0); Calcium 8.7 mg/dL (8.5-10.1); Chloride 102 mmol/L (98-107); Glucose 129 mg/dL (70-100); Magnesium 1.5 mg/dL (1.8-2.4); PHOSPHORUS 2.5 mg/dL (2.6-4.7); Potassium 4.3 mmol/L (3.5-5.1); Sodium 136 mmol/L (136-145)
[2018-10-18] MEDS: Normal Saline Flush 10 ML SYR 20 ML IVP ×2 (10:30→18:58)
[2018-10-18 11:55] VITALS: BP 121/80; PULSE 97; RESP 20; TEMP 37; O2SAT 98
[2018-10-18] MEDS: Insulin Aspart 300 UNITS/3 ML PEN SC ×2 (11:55→18:31)
[2018-10-18] MEDS: Normal Saline 500 ML 30 ML IV (11:57)
--- NOTE | 2018-10-18 12:09 | W.PM.PROGNOT ---
Date of Service Date of service: 10/19/18 Time of Service: 12:00 Assessment and Plan (1) Postoperative abdominal pain: Current visit: Yes Status: Acute POD #3 s/p ileostomy takedown. intially created approx 4 wks ago for perf divertic w/ abscess wound VAC and TPN -TPN being adjusted by pharm no abx wound vac up and walking no flatus yet anxiety doing well w/ pain control PICC occlusion- using Cath kris (2) Occluded PICC line: Current visit: Yes Status: Acute cathFlo Subjective Patient reports: voiding w/o difficulty, no flatus, no bowel movement and afebrile; denies nausea, vomiting and shortness of breath Interval history since last seen: pt is have some pain- now changed over to LLQ and is most likely gas pains. no fever or chills. no flatus yet. no signif bs. no cp or sob. no productive cough. no thrush. voiding w/ out problems. no calf pain or swelling. line site is c/d/i. no breakdown. one of the ports is having a hard time to flush. Exam Narrative Exam Narrative: POD #3 progress notes reviewed and pt care reviewed w/ nursing. again c/o pain that was more on R side yest- most likely this is gas that is moving around. pt is anxious regarding medical condition. Does not appear toxic. Const General: cooperative, no acute distress and anxious Orientation: alert, awake and oriented x3 HENMT Head: normal to inspection Ears: hearing grossly normal bilaterally Mouth: oral mucosae normal, tongue normal and other (no thrush ) Teeth and gingiva: dentition normal Eyes General: appearance normal, both eyes and all related structures Sclera: sclerae normal Pupils: PERRL Chest Chest: normal inspection of the chest Resp Effort & Inspection: normal respiratory effort, able to speak in complete sentences, no audible wheezes and no cough Auscultation: clear to auscultation bilaterally, no crackles and lung sounds not diminished Cardio Jugular venous pressure: no JVD Rate: regular rate Rhythm: regular rhythm GI Palpation: soft Auscultation: absent bowel sounds Other: soft. no distention. min BS. wound vac in place. skin is c/d/i no redness. appropriate drainage from vac. Other: no pain or burning w/ urination Skin Other: no breakdown. no pain or swelling in calves. PICC site L arm. c/d/i no arm swelling. Neuro General: oriented x3 and oriented Cognition: normal cognition Speech: speech normal Extrem Other: no calf pain or swelling. + ambulation Objective Objective Clinical Data: Abnormal lab results 10/18/18 10/18/18 Range/Units 07:50 07:50 RBC 3.21 L (4.00-5.20) m/cumm Hgb 9.3 L (12.0-15.5) g/dL Hct 28.6 L (36.0-46.0) % Glucose 129 H (70-100) mg/dL Phosphorus 2.5 L (2.6-4.7) mg/dL Magnesium 1.5 L (1.8-2.4) mg/dL Vital Signs Temperature 37.0 C 10/18/18 11:55 Temperature Source Tympanic 10/18/18 11:55 Pulse 97 H 10/18/18 11:55 Pulse Rhythm Regular 10/17/18 16:18 Pulse 89 09/30/18 23:50 Respiratory Rate 20 10/18/18 11:55 Respiratory Effort Non-Labored 10/17/18 16:18 Respiratory Depth Normal 10/17/18 16:18 Respiratory Pattern Normal 10/17/18 16:18 Blood Pressure 121/80 10/18/18 11:55 Blood Pressure Mean 85 09/30/18 23:36 Pulse Oximetry 98 10/18/18 11:55 Oxygen Delivery Method Room Air 10/18/18 11:55 Oxygen Flow Rate 0 10/18/18 11:55 Pain Level 10 10/18/18 09:44 Comment 10/01/18 04:15 Intake & Output 10/17/18 10/18/18 10/18/18 23:59 11:59 23:59 Intake Total 1550 / 2874.334 1548 / 1548 Output Total 1200 / 2450 450 / 450 Balance 350 / 617.875 0394 / 1098 Weight 116.5 kg Intake: IV 1450 / 2714.334 1548 / 1548 Oral 100 / 160 Output: Output, Wound Vac (mls) 300 / 300 Urine 900 / 2150 450 / 450 Other: Urine Color Yellow Yellow Urine Appearance Clear Clear Voiding Methods Bedside Commode Bedside Commode Laboratory Results WBC 5.56 k/cumm (4.4-10.8) 10/18/18 07:50 RBC 3.21 m/cumm (4.00-5.20) L 10/18/18 07:50 Hgb 9.3 g/dL (12.0-15.5) L 10/18/18 07:50 Hct 28.6 % (36.0-46.0) L 10/18/18 07:50 MCV 89.1 fL (80-95) 10/18/18 07:50 MCH 29.0 pg (27.0-33.0) 10/18/18 07:50 MCHC 32.5 g/dL (32.0-36.0) 10/18/18 07:50 RDW 13.3 % (11.7-14.6) 10/18/18 07:50 Plt Count 175 x1000/uL (130-400) 10/18/18 07:50 MPV 10.6 fL (8.0-11.0) 10/18/18 07:50 Immature Gran % 0.4 10/05/18 05:40 Neutrophils % 47.4 10/05/18 05:40 Lymphocytes % 27.5 10/05/18 05:40 Monocytes % 10.1 10/05/18 05:40 Eosinophils % 14.2 10/05/18 05:40 Basophils % 0.4 10/05/18 05:40 Absolute Neutrophils 2.34 k/cumm (1.2-6.7) 10/05/18 05:40 Absolute Lymphocytes 1.36 k/cumm (1.2-3.4) 10/05/18 05:40 Absolute Monocytes 0.50 k/cumm (0.11-0.7) 10/05/18 05:40 Absolute Eosinophils 0.70 k/cumm (0.0-0.7) 10/05/18 05:40 Absolute Basophils 0.02 k/cumm (0.0-0.2) 10/05/18 05:40 PT 10.8 sec (9.3-11.0) 10/17/18 06:50 INR 1.1 (0.9-1.1) 10/17/18 06:50 APTT 24.4 sec (21.0-31.4) 10/01/18 07:00 Sodium 136 mmol/L (136-145) 10/18/18 07:50 Potassium 4.3 mmol/L (3.5-5.1) 10/18/18 07:50 Chloride 102 mmol/L (98-107) 10/18/18 07:50 Carbon Dioxide 24.1 mmol/L (21.0-32.0) 10/18/18 07:50 Anion Gap 9.9 mmol/L (3-11) 10/18/18 07:50 BUN 33 mg/dL (7-18) H 10/17/18 06:50 Creatinine 0.89 mg/dL (0.55-1.02) 10/17/18 06:50 Estimated GFR/1.73 m2 >= 60.00 (mL/min/1.73m2) 10/17/18 06:50 Glucose 129 mg/dL (70-100) H 10/18/18 07:50 Lactate 1.1 mmol/l (0.6-1.4) 10/01/18 15:10 Calcium 8.7 mg/dL (8.5-10.1) 10/18/18 07:50 Phosphorus 2.5 mg/dL (2.6-4.7) L 10/18/18 07:50 Magnesium 1.5 mg/dL (1.8-2.4) L 10/18/18 07:50 Total Bilirubin 1.0 mg/dL (0.2-1.0) 10/17/18 06:50 AST 64 U/L (15-37) H 10/17/18 06:50 ALT 123 U/L (12-78) H 10/17/18 06:50 Alkaline Phosphatase 118 U/L (46-116) H 10/17/18 06:50 Total Protein 7.1 g/dL (6.4-8.2) 10/17/18 06:50 Albumin 2.4 g/dL (3.4-5.0) L 10/17/18 06:50 Prealbumin 17 mg/dL (20-40) L 10/10/18 06:50 C.difficile Tox Ab Neut Cancelled 10/06/18 15:46
--- NOTE | 2018-10-18 12:20 | PDOC.CMPRO ---
Care Management Progress Note S/O: Sitting up in bed. Appears pale and tired. Very slow speaking. States she still has abdominal pain but it has been improving. Would like to be able to go back to work but has accepted the slow recovery she is experiencing. Likes her job at [employer], [place]. A: 48 y.o. female readmitted for facial dehiscence P: Return to her mother's home in [place] when medically cleared for discharge. Will need to make another referral to if continued wound care is needed. Family will transport.
--- NOTE | 2018-10-18 12:29 | CMPROGNOTE_ITS ---
Care Management Progress Note S/O: Sitting up in bed. Appears pale and tired. Very slow speaking. States she still has abdominal pain but it has been improving. Would like to be able to go back to work but has accepted the slow recovery she is experiencing. Likes her job at [employer]. A: 48 y.o. female readmitted for facial dehiscence P: Return to her mother's home in [place] when medically cleared for discharge. Will need to make another referral to if continued wound care is needed. Family will transport.
[2018-10-18] MEDS: Water,Injection,Bacteriostatic 30 ML VIAL (13:25)
[2018-10-18] MEDS: Alteplase 2 MG VIAL IJ (13:26)
[2018-10-18 13:52] LABS: Iron 39 ug/dL (50-175); Total Iron Binding Capacity 277 ug/dL (250-450); Transferrin Sat 14 % (15-50)
[2018-10-18 14:05] LABS: Ferritin 389 ng/mL (8-388)
[2018-10-18 15:53] VITALS: BP 134/74; PULSE 100; RESP 16; TEMP 37.6; O2SAT 98
[2018-10-18] MEDS: Ketorolac 30 MG/ML VIAL IVP (16:56)
[2018-10-18 20:08] VITALS: BP 123/77; PULSE 100; RESP 14; TEMP 37.3; O2SAT 98
[2018-10-19 00:05] VITALS: BP 114/80; PULSE 96; RESP 16; TEMP 37.2; O2SAT 98
[2018-10-19] MEDS: HYDROmorphone 2 MG/ML VIAL IVP ×7 (00:45→21:22)
[2018-10-19] MEDS: LORazepam 2 MG/ML VIAL IVP ×3 (03:26→16:36)
[2018-10-19] MEDS: Normal Saline Flush 10 ML SYR IVP ×8 (03:27→21:22)
[2018-10-19 07:27] LABS: HCT 27.8 % (36.0-46.0); Mean Corp. HGB Concentration 32.4 g/dL (32.0-36.0); Mean Corpuscular Hemoglobin 28.7 pg (27.0-33.0); Mean Corpuscular Volume 88.5 fL (80-95); Mean Platelet Volume 10.8 fL (8.0-11.0); Platelet Count 194 x1000/uL (130-400); RBC 3.14 m/cumm (4.00-5.20); RBC Distribution Width 13.2 % (11.7-14.6); White Blood Cell Count 5.57 k/cumm (4.4-10.8)
[2018-10-19 07:35] VITALS: BP 163/71; PULSE 85; RESP 18; TEMP 37.2; O2SAT 98
[2018-10-19 07:43] LABS: Calcium 8.8 mg/dL (8.5-10.1); Glucose 135 mg/dL (70-100); Magnesium 1.5 mg/dL (1.8-2.4); PHOSPHORUS 2.7 mg/dL (2.6-4.7)
[2018-10-19] MEDS: Normal Saline Flush 10 ML SYR 20 ML IVP ×2 (09:19→18:02)
[2018-10-19] MEDS: Acetaminophen 325 MG TAB 650 MG PO ×2 (09:20→16:33)
[2018-10-19] MEDS: Simethicone 80 MG CHEW PO (09:20)
[2018-10-19] MEDS: Ketorolac 30 MG/ML VIAL IVP ×2 (09:20→16:35)
[2018-10-19] MEDS: CEFEPIME 2 GM in Normal Saline 100 ML IVPB (11:37)
--- NOTE | 2018-10-19 11:43 | W.PM.PROGNOT ---
Date of Service Date of service: 10/19/18 Time of Service: 11:44 Assessment and Plan (1) Anemia of chronic disorder: Current visit: Yes Status: Acute -Venofer -electrolytes/TPN adjusted by pharmacy -wound vac change tomorrow -continued ambulation adn supportive care. pt reassured that she is following nl course and is going to take some time for bowel function to resume. -developing tolerance to narcs and my require some weaning 30 mins spent in care today Subjective Patient reports: still having pain, no flatus and afebrile Interval history since last seen: Pt is doing well. although coping mechanisms are low. Assured her that everything she is experiencing is normal and she is progressing normal and no sign of complications at this time. Nursing was able to get the occluded PICC line open. no signs of thrush. She is still requiring high doses of narcotics- d/w pt she may be developing tolerance and may need to do some narcotic tapering once her acute problems are resolved. wound vac is in place and functioning. no pain or difficulty urinating. no chest pain or sob or cough. no flatus yet. gas cramps on left side. +BS today Exam Const General: cooperative, comfortable, well groomed and anxious Orientation: alert, awake and oriented x3 HENMT Mouth: oral mucosae normal and tongue normal Throat: posterior oropharynx normal Chest Chest: normal inspection of the chest Cardio Jugular venous pressure: no JVD Rate: regular rate Rhythm: regular rhythm GI Inspection: other (wound vac in place. wound edges visble are pink and healthy) Palpation: soft Auscultation: hypoactive bowel sounds Other: skin is c/d/i. + BS aren in LLQ. Skin General skin exam: no rashes or lesions noted and other (no breakdown or hot spots ) Extrem General: normal to inspection, no clubbing, cyanosis or edema, no calf tenderness and normal gait Objective Objective Clinical Data: Abnormal lab results 10/18/18 10/18/18 10/19/18 Range/Units 07:50 07:50 06:10 RBC (4.00-5.20) m/cumm Hgb (12.0-15.5) g/dL Hct (36.0-46.0) % Glucose 135 H (70-100) mg/dL Magnesium 1.5 L (1.8-2.4) mg/dL Iron 39 L (50-175) ug/dL Transferrin % Sat 14 L (15-50) % Ferritin 389 H (8-388) ng/mL 10/19/18 Range/Units 06:10 RBC 3.14 L (4.00-5.20) m/cumm Hgb 9.0 L (12.0-15.5) g/dL Hct 27.8 L (36.0-46.0) % Glucose (70-100) mg/dL Magnesium (1.8-2.4) mg/dL Iron (50-175) ug/dL Transferrin % Sat (15-50) % Ferritin (8-388) ng/mL Vital Signs Temperature 37.2 C 10/19/18 07:35 Temperature Source Tympanic 10/19/18 07:35 Pulse 85 10/19/18 07:35 Pulse Rhythm Regular 10/19/18 09:41 Pulse 89 09/30/18 23:50 Respiratory Rate 18 10/19/18 07:35 Respiratory Effort Non-Labored 10/19/18 09:41 Respiratory Depth Normal 10/19/18 09:41 Respiratory Pattern Normal 10/19/18 09:41 Blood Pressure 163/71 H 10/19/18 07:35 Blood Pressure Mean 85 09/30/18 23:36 Pulse Oximetry 98 10/19/18 07:35 Oxygen Delivery Method Room Air 10/19/18 07:35 Oxygen Flow Rate 0 10/19/18 07:35 Pain Level 7 10/19/18 10:56 Comment 10/01/18 04:15 Intake & Output 10/18/18 10/18/18 10/19/18 11:59 23:59 11:59 Intake Total 1548 / 2356.5 808.5 / 2356.5 1116.483 / 1116.483 Output Total 450 / 450 875 / 875 Balance 1098 / 1906.5 808.5 / 1906.5 241.483 / 241.483 Weight 116.5 kg 116.6 kg Intake: IV 1548 / 2356.5 808.5 / 2356.5 1116.483 / 1116.483 Output: Output, Wound Vac (mls) 150 / 150 Urine 450 / 450 725 / 725 Other: Urine Color Yellow Yellow Urine Appearance Clear Clear Comment voiding indepedently per pt report Voiding Methods Bedside Commode Bedside Commode Laboratory Results WBC 5.57 k/cumm (4.4-10.8) 10/19/18 06:10 RBC 3.14 m/cumm (4.00-5.20) L 10/19/18 06:10 Hgb 9.0 g/dL (12.0-15.5) L 10/19/18 06:10 Hct 27.8 % (36.0-46.0) L 10/19/18 06:10 MCV 88.5 fL (80-95) 10/19/18 06:10 MCH 28.7 pg (27.0-33.0) 10/19/18 06:10 MCHC 32.4 g/dL (32.0-36.0) 10/19/18 06:10 RDW 13.2 % (11.7-14.6) 10/19/18 06:10 Plt Count 194 x1000/uL (130-400) 10/19/18 06:10 MPV 10.8 fL (8.0-11.0) 10/19/18 06:10 Immature Gran % 0.4 10/05/18 05:40 Neutrophils % 47.4 10/05/18 05:40 Lymphocytes % 27.5 10/05/18 05:40 Monocytes % 10.1 10/05/18 05:40 Eosinophils % 14.2 10/05/18 05:40 Basophils % 0.4 10/05/18 05:40 Absolute Neutrophils 2.34 k/cumm (1.2-6.7) 10/05/18 05:40 Absolute Lymphocytes 1.36 k/cumm (1.2-3.4) 10/05/18 05:40 Absolute Monocytes 0.50 k/cumm (0.11-0.7) 10/05/18 05:40 Absolute Eosinophils 0.70 k/cumm (0.0-0.7) 10/05/18 05:40 Absolute Basophils 0.02 k/cumm (0.0-0.2) 10/05/18 05:40 PT 10.8 sec (9.3-11.0) 10/17/18 06:50 INR 1.1 (0.9-1.1) 10/17/18 06:50 APTT 24.4 sec (21.0-31.4) 10/01/18 07:00 Sodium 136 mmol/L (136-145) 10/18/18 07:50 Potassium 4.3 mmol/L (3.5-5.1) 10/18/18 07:50 Chloride 102 mmol/L (98-107) 10/18/18 07:50 Carbon Dioxide 24.1 mmol/L (21.0-32.0) 10/18/18 07:50 Anion Gap 9.9 mmol/L (3-11) 10/18/18 07:50 BUN 33 mg/dL (7-18) H 10/17/18 06:50 Creatinine 0.89 mg/dL (0.55-1.02) 10/17/18 06:50 Estimated GFR/1.73 m2 >= 60.00 (mL/min/1.73m2) 10/17/18 06:50 Glucose 135 mg/dL (70-100) H 10/19/18 06:10 Lactate 1.1 mmol/l (0.6-1.4) 10/01/18 15:10 Calcium 8.8 mg/dL (8.5-10.1) 10/19/18 06:10 Phosphorus 2.7 mg/dL (2.6-4.7) 10/19/18 06:10 Magnesium 1.5 mg/dL (1.8-2.4) L 10/19/18 06:10 Iron 39 ug/dL (50-175) L 10/18/18 07:50 TIBC 277 ug/dL (250-450) 10/18/18 07:50 Transferrin % Sat 14 % (15-50) L 10/18/18 07:50 Ferritin 389 ng/mL (8-388) H 10/18/18 07:50 Total Bilirubin 1.0 mg/dL (0.2-1.0) 10/17/18 06:50 AST 64 U/L (15-37) H 10/17/18 06:50 ALT 123 U/L (12-78) H 10/17/18 06:50 Alkaline Phosphatase 118 U/L (46-116) H 10/17/18 06:50 Total Protein 7.1 g/dL (6.4-8.2) 10/17/18 06:50 Albumin 2.4 g/dL (3.4-5.0) L 10/17/18 06:50 Prealbumin 17 mg/dL (20-40) L 10/10/18 06:50 C.difficile Tox Ab Neut Cancelled 10/06/18 15:46 Objective Narrative Objective Narrative: labs reviewed . no new imaging
[2018-10-19 11:53] VITALS: BP 119/73; PULSE 93; RESP 18; TEMP 36.6; O2SAT 99
[2018-10-19] MEDS: Insulin Aspart 300 UNITS/3 ML PEN SC (12:11)
[2018-10-19] MEDS: IRON SUCROSE COMPLEX 200 MG in Normal Saline 100 ML 110 MG IVPB (13:59)
--- NOTE | 2018-10-19 15:40 | PDOC.CMPRO ---
Care Management Progress Note S/O: Lying in bed with eyes closed. Appears pale and tired. Did open her eyes whe greeted. Shared that shee is doing as well as can be expected. Very slow speaking again today. A: 48 y.o. female readmitted for facial dehiscence P: Return to her mother's home in [place] when medically cleared for discharge. Will need to make another referral to if continued wound care is needed. Family will transport.
[2018-10-19 16:46] VITALS: BP 144/85; PULSE 105; RESP 18; TEMP 38; O2SAT 100
[2018-10-19 19:39] VITALS: BP 119/62; PULSE 91; RESP 12; TEMP 37.3; O2SAT 98
[2018-10-20 00:19] VITALS: BP 120/78; PULSE 92; RESP 18; TEMP 37.6; O2SAT 99
[2018-10-20] MEDS: Normal Saline Flush 10 ML SYR IVP ×8 (00:29→21:52)
[2018-10-20] MEDS: Ketorolac 30 MG/ML VIAL IVP ×3 (00:30→12:05)
[2018-10-20] MEDS: HYDROmorphone 2 MG/ML VIAL IVP ×8 (00:31→21:50)
[2018-10-20] MEDS: Insulin Aspart 300 UNITS/3 ML PEN SC (00:56)
[2018-10-20] MEDS: CEFEPIME 2 GM in Normal Saline 100 ML IVPB ×2 (00:58→11:58)
[2018-10-20] MEDS: Normal Saline 500 ML 200 ML IV (01:01)
[2018-10-20] MEDS: LORazepam 2 MG/ML VIAL IVP ×2 (03:49→20:38)
[2018-10-20 07:20] VITALS: BP 115/67; PULSE 93; RESP 18; TEMP 37.1; O2SAT 98
[2018-10-20 07:31] LABS: HCT 27.7 % (36.0-46.0); Mean Corp. HGB Concentration 32.5 g/dL (32.0-36.0); Mean Corpuscular Hemoglobin 28.5 pg (27.0-33.0); Mean Corpuscular Volume 87.7 fL (80-95); Mean Platelet Volume 10.1 fL (8.0-11.0); Platelet Count 208 x1000/uL (130-400); RBC 3.16 m/cumm (4.00-5.20); White Blood Cell Count 4.92 k/cumm (4.4-10.8)
--- NOTE | 2018-10-20 07:35 | W.PM.PROGNOT ---
Date of Service Date of service: 10/20/18 Time of Service: 07:35 Assessment and Plan (1) Anemia of chronic disorder: Current visit: Yes Status: Acute Continue to watch. Not symptomatic (2) Postoperative abdominal pain: Current visit: Yes Status: Acute A\\ feeling better. Bowel function is returning P\\ Diet: Continue clears. If tolerating that then will advance to soft-post op diet Activity: continue with ambulation Wound: will change wound vac today and order vac for home Pain medication: slowly wean off the dilauded onto toradol and tylenol DVT prophilaxis- continue with lovenox GI prophilaxis- continue with PPI Nutrition: will advance diet slowly and then start to wean TPN. Subjective Patient reports: feels better, tolerating liquids well and bowel movement Interval history since last seen: Radha is doing a bit better. She has had several liquid stools and is passing flatus. She is tearful do to the length of her illness. She is still having some pain in the LLQ at the old ileostomy site but it is decreasing. She is trying to wean herself off the dilaudid slowly. Exam Resp Effort & Inspection: normal respiratory effort Auscultation: clear to auscultation bilaterally Cardio Rate: regular rate Rhythm: regular rhythm Heart Sounds: no gallops, no murmurs and no rubs GI Palpation: soft and tender in the LLQ (mild) Auscultation: normoactive bowel sounds Other: Wound vac in place. Will change later today so I can look at the wound. Will order a home vac for the patient as well. Objective Objective Clinical Data: Abnormal lab results 10/19/18 Range/Units 06:10 Glucose 135 H (70-100) mg/dL Magnesium 1.5 L (1.8-2.4) mg/dL Vital Signs Temperature 99.7 F H 10/20/18 00:19 Temperature Source Tympanic 10/20/18 00:19 Pulse 92 H 10/20/18 00:19 Pulse Rhythm Regular 10/20/18 01:05 Pulse 89 09/30/18 23:50 Respiratory Rate 18 10/20/18 00:19 Respiratory Effort 10/20/18 01:05 Respiratory Depth Normal 10/20/18 01:05 Respiratory Pattern Normal 10/20/18 01:05 Blood Pressure 120/78 10/20/18 00:19 Blood Pressure Mean 85 09/30/18 23:36 Pulse Oximetry 99 10/20/18 00:19 Oxygen Delivery Method Room Air 10/20/18 00:19 Oxygen Flow Rate 0 10/20/18 00:19 Pain Level 9 10/20/18 06:09 Comment 10/01/18 04:15 Intake & Output 10/19/18 10/19/18 10/20/18 11:59 23:59 11:59 Intake Total 1356.483 / 3036.483 1680 / 3036.483 100 / 100 Output Total 875 / 1475 600 / 1475 900 / 900 Balance 481.483 / 1672.276 9895 / 1561.483 -800 / -800 Weight 257 lb 0.944 oz Intake: IV 1116.483 / 2596.483 1480 / 2596.483 100 / 100 Oral 240 / 440 200 / 440 Output: Output, Wound Vac (mls) 150 / 300 150 / 300 Urine 725 / 725 900 / 900 Stool 450 / 450 Other: Urine Color Yellow Yellow Urine Appearance Clear Clear Clear Urine Odor None Comment uses bathroom when passing urine 900cc mixed with dark brown liquid bm. Stool Occult Blood Positive Stool Size Small Large Stool Characteristics Liquid Liquid Brown Voiding Methods Bedside Commode Toilet Bedside Commode Laboratory Results WBC 5.57 k/cumm (4.4-10.8) 10/19/18 06:10 RBC 3.14 m/cumm (4.00-5.20) L 10/19/18 06:10 Hgb 9.0 g/dL (12.0-15.5) L 10/19/18 06:10 Hct 27.8 % (36.0-46.0) L 10/19/18 06:10 MCV 88.5 fL (80-95) 10/19/18 06:10 MCH 28.7 pg (27.0-33.0) 10/19/18 06:10 MCHC 32.4 g/dL (32.0-36.0) 10/19/18 06:10 RDW 13.2 % (11.7-14.6) 10/19/18 06:10 Plt Count 194 x1000/uL (130-400) 10/19/18 06:10 MPV 10.8 fL (8.0-11.0) 10/19/18 06:10 Immature Gran % 0.4 10/05/18 05:40 Neutrophils % 47.4 10/05/18 05:40 Lymphocytes % 27.5 10/05/18 05:40 Monocytes % 10.1 10/05/18 05:40 Eosinophils % 14.2 10/05/18 05:40 Basophils % 0.4 10/05/18 05:40 Absolute Neutrophils 2.34 k/cumm (1.2-6.7) 10/05/18 05:40 Absolute Lymphocytes 1.36 k/cumm (1.2-3.4) 10/05/18 05:40 Absolute Monocytes 0.50 k/cumm (0.11-0.7) 10/05/18 05:40 Absolute Eosinophils 0.70 k/cumm (0.0-0.7) 10/05/18 05:40 Absolute Basophils 0.02 k/cumm (0.0-0.2) 10/05/18 05:40 PT 10.8 sec (9.3-11.0) 10/17/18 06:50 INR 1.1 (0.9-1.1) 10/17/18 06:50 APTT 24.4 sec (21.0-31.4) 10/01/18 07:00 Sodium 136 mmol/L (136-145) 10/18/18 07:50 Potassium 4.3 mmol/L (3.5-5.1) 10/18/18 07:50 Chloride 102 mmol/L (98-107) 10/18/18 07:50 Carbon Dioxide 24.1 mmol/L (21.0-32.0) 10/18/18 07:50 Anion Gap 9.9 mmol/L (3-11) 10/18/18 07:50 BUN 33 mg/dL (7-18) H 10/17/18 06:50 Creatinine 0.89 mg/dL (0.55-1.02) 10/17/18 06:50 Estimated GFR/1.73 m2 >= 60.00 (mL/min/1.73m2) 10/17/18 06:50 Glucose 135 mg/dL (70-100) H 10/19/18 06:10 Lactate 1.1 mmol/l (0.6-1.4) 10/01/18 15:10 Calcium 8.8 mg/dL (8.5-10.1) 10/19/18 06:10 Phosphorus 2.7 mg/dL (2.6-4.7) 10/19/18 06:10 Magnesium 1.5 mg/dL (1.8-2.4) L 10/19/18 06:10 Iron 39 ug/dL (50-175) L 10/18/18 07:50 TIBC 277 ug/dL (250-450) 10/18/18 07:50 Transferrin % Sat 14 % (15-50) L 10/18/18 07:50 Ferritin 389 ng/mL (8-388) H 10/18/18 07:50 Total Bilirubin 1.0 mg/dL (0.2-1.0) 10/17/18 06:50 AST 64 U/L (15-37) H 10/17/18 06:50 ALT 123 U/L (12-78) H 10/17/18 06:50 Alkaline Phosphatase 118 U/L (46-116) H 10/17/18 06:50 Total Protein 7.1 g/dL (6.4-8.2) 10/17/18 06:50 Albumin 2.4 g/dL (3.4-5.0) L 10/17/18 06:50 Prealbumin 17 mg/dL (20-40) L 10/10/18 06:50 C.difficile Tox Ab Neut Cancelled 10/06/18 15:46
[2018-10-20 07:49] LABS: INR 1.1 (0.9-1.1); Prothrombin Time 10.7 sec (9.3-11.0)
[2018-10-20 08:01] LABS: Calcium 8.7 mg/dL (8.5-10.1); PHOSPHORUS 2.9 mg/dL (2.6-4.7)
[2018-10-20 08:02] LABS: ALT 61 U/L (12-78); Albumin 2.3 g/dL (3.4-5.0); Alkaline Phosphatase 121 U/L (46-116); Anion Gap 9.6 mmol/L (3-11); Bilirubin, Total 0.7 mg/dL (0.2-1.0); CO2 23.4 mmol/L (21.0-32.0); CREATININE 0.74 mg/dL (0.55-1.02); Chloride 104 mmol/L (98-107); Magnesium 1.5 mg/dL (1.8-2.4); Sodium 137 mmol/L (136-145)
[2018-10-20] MEDS: Normal Saline Flush 10 ML SYR 20 ML IVP ×2 (09:05→19:30)
[2018-10-20] MEDS: Enoxaparin 40 MG/0.4 ML SYR SC (09:07)
[2018-10-20 11:40] VITALS: BP 122/81; PULSE 91; RESP 18; TEMP 36.8; O2SAT 100
--- NOTE | 2018-10-20 11:59 | CHAPLAIN ---
When I visited this morning, Radha said shew as tired after walking around a bit. She said her pain is better controlled today. She's had a lot of difficulty with pain last week. Her has been visiting and Radha plans to go to [place] and recuperate at her mom's home.
--- NOTE | 2018-10-20 13:19 | W.PM.PROGNOT ---
Date of Service Date of service: 10/20/18 Time of Service: 13:19 Assessment and Plan (1) Open abdominal wall wound: Current visit: Yes Status: Acute A\\ Both wounds look clean. No signs of infection. Good granulation tissue noted P\\ Wound vac dressing changed. Will stop antibiotics. Qualifiers: Encounter type: subsequent encounter Qualified Code(s): S31.109D - Unspecified open wound of abdominal wall, unspecified quadrant without penetration into peritoneal cavity, subsequent encounter (2) Malnutrition: Current visit: No Status: Acute A\\ Mild P\\ Will start on a soft, post-surgical diet, bland If able to tolerate will start to decrease her TPN tomorrow Qualifiers: Malnutrition type: protein-calorie malnutrition Protein-calorie malnutrition severity: mild Qualified Code(s): E44.1 - Mild protein-calorie malnutrition Subjective Interval history since last seen: Doing well. Continues to have BM's. Had a large BM this am. Passing flatus. Tolerating po liquids without increased pain, N/V Exam Const General: cooperative Orientation: alert and oriented x3 Resp Effort & Inspection: normal respiratory effort Auscultation: clear to auscultation bilaterally Cardio Rate: regular rate Rhythm: regular rhythm Heart Sounds: no gallops, no murmurs and no rubs GI Palpation: soft and tender (mild around the ileostomy site) in the LLQ Auscultation: normal bowel sounds Other: Wound vac removed. Wound is clean and dry. Good granulation tissue. No signs of infection. Abdomen image: 1. midline incision- 24 x 6 x 3 cm 2. ileostomy site- 2.5 x 3 x 2.5 cm Objective Objective Clinical Data: Abnormal lab results 10/20/18 10/20/18 Range/Units 07:00 07:00 RBC 3.16 L (4.00-5.20) m/cumm Hgb 9.0 L (12.0-15.5) g/dL Hct 27.7 L (36.0-46.0) % Magnesium 1.5 L (1.8-2.4) mg/dL Alkaline Phosphatase 121 H (46-116) U/L Albumin 2.3 L (3.4-5.0) g/dL Vital Signs Temperature 98.8 F 10/20/18 07:20 Temperature Source Tympanic 10/20/18 07:20 Pulse 93 H 02/18/19 07:20 Pulse Rhythm Regular 10/20/18 01:05 Pulse 89 09/30/18 23:50 Respiratory Rate 18 10/20/18 07:20 Respiratory Effort 10/20/18 01:05 Respiratory Depth Normal 10/20/18 01:05 Respiratory Pattern Normal 10/20/18 01:05 Blood Pressure 115/67 10/20/18 07:20 Blood Pressure Mean 85 09/30/18 23:36 Pulse Oximetry 98 10/20/18 07:20 Oxygen Delivery Method Room Air 10/20/18 07:20 Oxygen Flow Rate 0 10/20/18 07:20 Pain Level 9 10/20/18 12:05 Comment 10/01/18 04:15 Intake & Output 10/19/18 10/20/18 10/20/18 23:59 11:59 23:59 Intake Total 1680 / 3036.483 163.333 / 163.333 Output Total 600 / 1475 900 / 900 Balance 1080 / 1561.483 -736.667 / -736.667 Intake: IV 1480 / 2596.483 163.333 / 163.333 Oral 200 / 440 Output: Output, Wound Vac (mls) 150 / 300 Urine 900 / 900 Stool 450 / 450 Other: Urine Color Yellow Urine Appearance Clear Clear Urine Odor None Comment uses bathroom when passing urine 900cc mixed with dark brown liquid bm. Stool Occult Blood Positive Stool Size Small Large Stool Characteristics Liquid Liquid Brown Voiding Methods Toilet Bedside Commode Laboratory Results WBC 4.92 k/cumm (4.4-10.8) 10/20/18 07:00 RBC 3.16 m/cumm (4.00-5.20) L 10/20/18 07:00 Hgb 9.0 g/dL (12.0-15.5) L 10/20/18 07:00 Hct 27.7 % (36.0-46.0) L 10/20/18 07:00 MCV 87.7 fL (80-95) 10/20/18 07:00 MCH 28.5 pg (27.0-33.0) 10/20/18 07:00 MCHC 32.5 g/dL (32.0-36.0) 10/20/18 07:00 RDW 13.0 % (11.7-14.6) 10/20/18 07:00 Plt Count 208 x1000/uL (130-400) 10/20/18 07:00 MPV 10.1 fL (8.0-11.0) 10/20/18 07:00 Immature Gran % 0.4 10/05/18 05:40 Neutrophils % 47.4 10/05/18 05:40 Lymphocytes % 27.5 10/05/18 05:40 Monocytes % 10.1 10/05/18 05:40 Eosinophils % 14.2 10/05/18 05:40 Basophils % 0.4 10/05/18 05:40 Absolute Neutrophils 2.34 k/cumm (1.2-6.7) 10/05/18 05:40 Absolute Lymphocytes 1.36 k/cumm (1.2-3.4) 10/05/18 05:40 Absolute Monocytes 0.50 k/cumm (0.11-0.7) 10/05/18 05:40 Absolute Eosinophils 0.70 k/cumm (0.0-0.7) 10/05/18 05:40 Absolute Basophils 0.02 k/cumm (0.0-0.2) 10/05/18 05:40 PT 10.7 sec (9.3-11.0) 10/20/18 07:00 INR 1.1 (0.9-1.1) 10/20/18 07:00 APTT 24.4 sec (21.0-31.4) 10/01/18 07:00 Sodium 137 mmol/L (136-145) 10/20/18 07:00 Potassium 4.0 mmol/L (3.5-5.1) 10/20/18 07:00 Chloride 104 mmol/L (98-107) 10/20/18 07:00 Carbon Dioxide 23.4 mmol/L (21.0-32.0) 10/20/18 07:00 Anion Gap 9.6 mmol/L (3-11) 10/20/18 07:00 BUN 33 mg/dL (7-18) H 10/17/18 06:50 Creatinine 0.74 mg/dL (0.55-1.02) 10/20/18 07:00 Estimated GFR/1.73 m2 >= 60.00 (mL/min/1.73m2) 10/20/18 07:00 Glucose 135 mg/dL (70-100) H 10/19/18 06:10 Lactate 1.1 mmol/l (0.6-1.4) 10/01/18 15:10 Calcium 8.7 mg/dL (8.5-10.1) 10/20/18 07:00 Phosphorus 2.9 mg/dL (2.6-4.7) 10/20/18 07:00 Magnesium 1.5 mg/dL (1.8-2.4) L 10/20/18 07:00 Iron 39 ug/dL (50-175) L 10/18/18 07:50 TIBC 277 ug/dL (250-450) 10/18/18 07:50 Transferrin % Sat 14 % (15-50) L 10/18/18 07:50 Ferritin 389 ng/mL (8-388) H 10/18/18 07:50 Total Bilirubin 0.7 mg/dL (0.2-1.0) 10/20/18 07:00 AST 64 U/L (15-37) H 10/17/18 06:50 ALT 61 U/L (12-78) 10/20/18 07:00 Alkaline Phosphatase 121 U/L (46-116) H 10/20/18 07:00 Total Protein 7.1 g/dL (6.4-8.2) 10/17/18 06:50 Albumin 2.3 g/dL (3.4-5.0) L 10/20/18 07:00 Prealbumin 17 mg/dL (20-40) L 10/10/18 06:50 C.difficile Tox Ab Neut Cancelled 10/06/18 15:46
--- NOTE | 2018-10-20 14:03 | PDOC.CMPRO ---
- If Service Date Differs Date of service: 10/20/18 Time of Service: 14:03 Care Management Progress Note S/O: Radha is sitting up in bed when this junior copywriter visits this afternoon. She requests that SUSAN fax clinical updates to [facility] in regards to her disability. SUSAN faxed clinicals including MD progress notes and surgical report to . Radha states that the plan is for DC on Saturday. SUSAN spoke with [facility], and will send [facility] wound vac order and progress notes to them. A: 48 y.o. female readmitted for facial dehiscence P: Return to her mother's home in [place] when medically cleared for discharge. She will have home health RN services through the [facility]. Family to transport.
--- NOTE | 2018-10-20 14:06 | CMPROGNOTE_ITS ---
- If Service Date Differs Date of service: 10/20/18 Time of Service: 14:03 Care Management Progress Note S/O: Radha is sitting up in bed when this commercial underwriter visits this afternoon. She requests that SUSAN fax clinical updates to [facility] in regards to her disability. SUSAN faxed clinicals including MD progress notes and surgical report to . Radha states that the plan is for DC on Saturday. SUSAN spoke with [facility], and will send [facility] wound vac order and progress notes to them. A: 48 y.o. female readmitted for facial dehiscence P: Return to her mother's home in [place] when medically cleared for discharge. She will have home health RN services through the [facility]. Family to transport.
[2018-10-20] MEDS: MAGNESIUM SULFATE 4 GM/100 ML BAG IVPB (15:47)
[2018-10-20 16:19] VITALS: BP 112/64; PULSE 90; RESP 18; TEMP 36.7; O2SAT 100
[2018-10-20 20:07] VITALS: BP 160/84; PULSE 97; RESP 18; TEMP 37.1; O2SAT 100
--- NOTE | 2018-10-20 22:29 | NUR.NOTE ---
Nursing Note: Called to bedside by patient, wound vac beeping and reading vacuum leak I assessed the dressing and reinforced as necessary, I also changed the drainage container. This did not fix the issue, I had the CC and Pump Service Supervisor on duty come and assess the wound vac as well, they also reinforced the dressing. Currently it is functioning properly, educated patient to notify staff immediately if machine starts beeping again.
[2018-10-20 23:53] VITALS: BP 120/71; PULSE 102; RESP 17; TEMP 38; O2SAT 100
[2018-10-21] VITALS (10 sets, daily range): BP systolic 105–161; BP diastolic 59–78; PULSE 73–103; RESP 18–20; TEMP 37–38.5; O2SAT 96–99
[2018-10-21] MEDS: HYDROmorphone 2 MG/ML VIAL IVP ×9 (00:05→22:04)
[2018-10-21] MEDS: Normal Saline Flush 10 ML SYR IVP ×7 (04:04→22:04)
[2018-10-21 07:32] LABS: HCT 27.5 % (36.0-46.0); Mean Corp. HGB Concentration 32.7 g/dL (32.0-36.0); Mean Corpuscular Hemoglobin 28.7 pg (27.0-33.0); Mean Corpuscular Volume 87.6 fL (80-95); Mean Platelet Volume 10.5 fL (8.0-11.0); Platelet Count 216 x1000/uL (130-400); RBC 3.14 m/cumm (4.00-5.20); RBC Distribution Width 13.2 % (11.7-14.6); White Blood Cell Count 7.79 k/cumm (4.4-10.8)
[2018-10-21 07:54] LABS: Anion Gap 9.4 mmol/L (3-11); BUN 17 mg/dL (7-18); CO2 24.6 mmol/L (21.0-32.0); CREATININE 0.74 mg/dL (0.55-1.02); Calcium 8.4 mg/dL (8.5-10.1); Chloride 100 mmol/L (98-107); Glucose 145 mg/dL (70-100); Magnesium 1.7 mg/dL (1.8-2.4); PHOSPHORUS 2.2 mg/dL (2.6-4.7); Sodium 134 mmol/L (136-145)
[2018-10-21] MEDS: Acetaminophen 325 MG TAB 650 MG PO (08:19)
[2018-10-21] MEDS: Enoxaparin 40 MG/0.4 ML SYR SC (08:21)
[2018-10-21] MEDS: Ketorolac 30 MG/ML VIAL IVP ×2 (08:27→17:05)
--- NOTE | 2018-10-21 08:56 | W.PM.PROGNOT ---
Date of Service Date of service: 10/21/18 Time of Service: 07:15 Assessment and Plan (1) Hypomagnesemia: Current visit: Yes Status: Acute P\\ Give 4 gm of IV Magnesium (2) Open abdominal wall wound: Current visit: Yes Status: Acute Continue with wound vac Qualifiers: Encounter type: subsequent encounter Qualified Code(s): S31.109D - Unspecified open wound of abdominal wall, unspecified quadrant without penetration into peritoneal cavity, subsequent encounter (3) Anemia of chronic disorder: Current visit: Yes Status: Acute Stable. Asymptomatic (4) Malnutrition: Current visit: No Status: Acute Tolerating a soft post-op diet If able to tolerate breakfast and lunch then will start to decrease the TPN Qualifiers: Malnutrition type: protein-calorie malnutrition Protein-calorie malnutrition severity: mild Qualified Code(s): E44.1 - Mild protein-calorie malnutrition (5) Fever: Current visit: Yes Status: Acute Fevers overnight and this am WBC count normal, no shift no increase in platelets Check UA, check for C.Diff Start Incentive spirometer Watch. Will get blood cultures if temp >101.5 Qualifiers: Fever type: post-procedural Qualified Code(s): R50.82 - Postprocedural fever Subjective Interval history since last seen: Doing well. Pain is well controlled. Still passing flatus and having loose stools. No N/V. Tolerated some mashed potatoes and toast last night Exam Resp Effort & Inspection: normal respiratory effort Auscultation: diminished lung sounds bilaterally in the lower lung [place] Cardio Rate: regular rate Rhythm: regular rhythm Heart Sounds: no gallops, no murmurs and no rubs GI Inspection: normal to inspection Palpation: soft and tender in the LLQ (around the old ostomy site) Auscultation: normal bowel sounds Objective Objective Clinical Data: Abnormal lab results 10/21/18 10/21/18 Range/Units 06:26 06:26 RBC 3.14 L (4.00-5.20) m/cumm Hgb 9.0 L (12.0-15.5) g/dL Hct 27.5 L (36.0-46.0) % Sodium 134 L (136-145) mmol/L Glucose 145 H (70-100) mg/dL Calcium 8.4 L (8.5-10.1) mg/dL Phosphorus 2.2 L (2.6-4.7) mg/dL Magnesium 1.7 L (1.8-2.4) mg/dL Vital Signs Temperature 101.3 F H 10/21/18 08:30 Temperature Source Tympanic 10/21/18 08:30 Pulse 103 H 10/21/18 07:30 Pulse Rhythm Regular 10/20/18 22:39 Pulse 89 09/30/18 23:50 Respiratory Rate 18 10/21/18 07:30 Respiratory Effort Non-Labored 10/20/18 22:39 Respiratory Depth Normal 10/20/18 22:39 Respiratory Pattern Normal 10/20/18 22:39 Blood Pressure 106/78 10/21/18 07:30 Blood Pressure Mean 85 09/30/18 23:36 Pulse Oximetry 96 10/21/18 07:30 Oxygen Delivery Method Room Air 10/21/18 07:30 Oxygen Flow Rate 0 10/21/18 07:30 Pain Level 8 10/21/18 08:27 Comment 10/01/18 04:15 Intake & Output 10/20/18 10/20/18 10/21/18 11:59 23:59 11:59 Intake Total 1194.333 / 3494.333 2300 / 3494.333 986.418 / 986.418 Output Total 900 / 900 200 / 200 Balance 294.333 / 2594.333 2300 / 2594.333 786.418 / 786.418 Intake: IV 1194.333 / 2564.333 1370 / 2564.333 986.418 / 986.418 Oral 930 / 930 Output: Output, Wound Vac (mls) 200 / 200 Urine 900 / 900 Other: Urine Appearance Clear Clear Comment 900cc mixed with dark brown liquid bm. Stool Size Large Stool Characteristics Liquid Voiding Methods Bedside Commode Laboratory Results WBC 7.79 k/cumm (4.4-10.8) D 10/21/18 06:26 RBC 3.14 m/cumm (4.00-5.20) L 10/21/18 06:26 Hgb 9.0 g/dL (12.0-15.5) L 10/21/18 06:26 Hct 27.5 % (36.0-46.0) L 10/21/18 06:26 MCV 87.6 fL (80-95) 10/21/18 06:26 MCH 28.7 pg (27.0-33.0) 10/21/18 06:26 MCHC 32.7 g/dL (32.0-36.0) 10/21/18 06:26 RDW 13.2 % (11.7-14.6) 10/21/18 06:26 Plt Count 216 x1000/uL (130-400) 10/21/18 06:26 MPV 10.5 fL (8.0-11.0) 10/21/18 06:26 Immature Gran % 0.4 10/05/18 05:40 Neutrophils % 47.4 10/05/18 05:40 Lymphocytes % 27.5 10/05/18 05:40 Monocytes % 10.1 10/05/18 05:40 Eosinophils % 14.2 10/05/18 05:40 Basophils % 0.4 10/05/18 05:40 Absolute Neutrophils 2.34 k/cumm (1.2-6.7) 10/05/18 05:40 Absolute Lymphocytes 1.36 k/cumm (1.2-3.4) 10/05/18 05:40 Absolute Monocytes 0.50 k/cumm (0.11-0.7) 10/05/18 05:40 Absolute Eosinophils 0.70 k/cumm (0.0-0.7) 10/05/18 05:40 Absolute Basophils 0.02 k/cumm (0.0-0.2) 10/05/18 05:40 PT 10.7 sec (9.3-11.0) 10/20/18 07:00 INR 1.1 (0.9-1.1) 10/20/18 07:00 APTT 24.4 sec (21.0-31.4) 10/01/18 07:00 Sodium 134 mmol/L (136-145) L 10/21/18 06:26 Potassium 4.0 mmol/L (3.5-5.1) 10/21/18 06:26 Chloride 100 mmol/L (98-107) 10/21/18 06:26 Carbon Dioxide 24.6 mmol/L (21.0-32.0) 10/21/18 06:26 Anion Gap 9.4 mmol/L (3-11) 10/21/18 06:26 BUN 17 mg/dL (7-18) 10/21/18 06:26 Creatinine 0.74 mg/dL (0.55-1.02) 10/21/18 06:26 Estimated GFR/1.73 m2 >= 60.00 (mL/min/1.73m2) 10/21/18 06:26 Glucose 145 mg/dL (70-100) H 10/21/18 06:26 Lactate 1.1 mmol/l (0.6-1.4) 10/01/18 15:10 Calcium 8.4 mg/dL (8.5-10.1) L 10/21/18 06:26 Phosphorus 2.2 mg/dL (2.6-4.7) L 10/21/18 06:26 Magnesium 1.7 mg/dL (1.8-2.4) L 10/21/18 06:26 Iron 39 ug/dL (50-175) L 10/18/18 07:50 TIBC 277 ug/dL (250-450) 10/18/18 07:50 Transferrin % Sat 14 % (15-50) L 10/18/18 07:50 Ferritin 389 ng/mL (8-388) H 10/18/18 07:50 Total Bilirubin 0.7 mg/dL (0.2-1.0) 10/20/18 07:00 AST 64 U/L (15-37) H 10/17/18 06:50 ALT 61 U/L (12-78) 10/20/18 07:00 Alkaline Phosphatase 121 U/L (46-116) H 10/20/18 07:00 Total Protein 7.1 g/dL (6.4-8.2) 10/17/18 06:50 Albumin 2.3 g/dL (3.4-5.0) L 10/20/18 07:00 Prealbumin 17 mg/dL (20-40) L 10/10/18 06:50 C.difficile Tox Ab Neut Cancelled 10/06/18 15:46
--- NOTE | 2018-10-21 10:09 | PDOC.CMPRO ---
- If Service Date Differs Date of service: 10/21/18 Time of Service: 10:09 Care Management Progress Note S/O: Radha remains in an acute level of care. She continues to have an advanced diet. CM faxed the Wound vac order as well as progress notes to [facility] [place] ([phone]) today P([phone]), with information in regards to potential DC tomorrow 10/22/18 depending on how she tolerates the diet. A: 48 y.o. female readmitted for facial dehiscence P: Return to her mother's home in [place] when medically cleared for discharge. She will have home health RN services through the [facility] [place]. Family to transport.
[2018-10-21] MEDS: MAGNESIUM SULFATE 4 GM/100 ML BAG IVPB (10:41)
[2018-10-21] MEDS: Normal Saline Flush 10 ML SYR 20 ML IVP ×2 (10:41→19:26)
[2018-10-21 11:51] LABS: Bilirubin Negative (Negative); Blood Negative (Negative); Clarity Clear; Glucose Negative (Negative); Ketones Negative (Negative); Leukocyte Esterase Negative (Negative); Nitrite Negative (Negative); Urobilinogen 0.2 EU/dL (Up TO 0.2)
[2018-10-21 12:01] LABS: Bacteria Moderate HPF (Negative); Crystals Negative HPF (Negative); Epithelial Cells Many HPF (Negative); Mucus Moderate (Negative); RBC 0-2 (0-2)
[2018-10-21 12:02] LABS: C & S Indicated? No/Sq. Contamination
[2018-10-21] MEDS: Ondansetron O.D.T. 4 MG TABEF PO (13:54)
[2018-10-21] MEDS: oxyCODONE 5 MG TAB PO ×2 (13:54→18:27)
--- NOTE | 2018-10-21 16:24 | PGE_ITS ---
Date of Service Date of service: 10/21/18 Time of Service: 16:20 Assessment and Plan (1) Fever: Current visit: Yes Status: Acute A\\ UA with some RBC and some ketones. some squamous cells so no culture donw. P\\ Straight cath x1 Qualifiers: Fever type: post-procedural Encounter type: Qualified Code(s): R50.82 - Postprocedural fever (2) Anxiety and depression: Current visit: Yes Status: Acute Totally understandable anxiety and depression post surgical P\\ Will get a Mental Health consult This was discussed with patient Subjective Interval history since last seen: Had one episode of nausea today. Passing flatus but no BM's today. No emesis Very tearful, and scared Exam GI Palpation: soft and tender in the LLQ (less then yesterday) Auscultation: hypoactive bowel sounds Objective Objective Clinical Data: Abnormal lab results 10/21/18 10/21/18 10/21/18 Range/Units 06:26 06:26 11:42 RBC 3.14 L (4.00-5.20) m/cumm Hgb 9.0 L (12.0-15.5) g/dL Hct 27.5 L (36.0-46.0) % Sodium 134 L (136-145) mmol/L Glucose 145 H (70-100) mg/dL Calcium 8.4 L (8.5-10.1) mg/dL Phosphorus 2.2 L (2.6-4.7) mg/dL Magnesium 1.7 L (1.8-2.4) mg/dL Urine Protein Trace H (Negative) mg/dL Vital Signs Temperature 100.4 F H 10/21/18 15:47 Temperature Source Tympanic 10/21/18 15:47 Pulse 99 H 10/21/18 15:47 Pulse Rhythm Regular 10/21/18 16:06 Pulse 89 09/30/18 23:50 Respiratory Rate 18 10/21/18 15:47 Respiratory Effort Non-Labored 10/21/18 16:06 Respiratory Depth Normal 10/21/18 16:06 Respiratory Pattern Normal 10/21/18 16:06 Blood Pressure 118/59 L 10/21/18 15:47 Blood Pressure Mean 85 09/30/18 23:36 Pulse Oximetry 99 10/21/18 15:47 Oxygen Delivery Method Room Air 10/21/18 15:47 Oxygen Flow Rate 0 10/21/18 15:47 Pain Level 8 10/21/18 15:59 Comment 10/21/18 09:30 Intake & Output 10/20/18 10/21/18 10/21/18 23:59 11:59 23:59 Intake Total 2300 / 3494.333 1236.418 / 1256.418 20 / 1256.418 Output Total 200 / 1200 1000 / 1200 Balance 2300 / 2594.333 1036.418 / 56.418 -980 / 56.418 Weight 261 lb 14.546 oz Intake: IV 1370 / 2564.333 986.418 / 1006.418 20 / 1006.418 Oral 930 / 930 250 / 250 Output: Output, Wound Vac (mls) 200 / 200 Urine 1000 / 1000 Other: Urine Color Straw Urine Appearance Clear Clear Clear Comment voiding in toilet w/o difficulty Voiding Methods Toilet Laboratory Results WBC 7.79 k/cumm (4.4-10.8) D 10/21/18 06:26 RBC 3.14 m/cumm (4.00-5.20) L 10/21/18 06:26 Hgb 9.0 g/dL (12.0-15.5) L 10/21/18 06:26 Hct 27.5 % (36.0-46.0) L 10/21/18 06:26 MCV 87.6 fL (80-95) 10/21/18 06:26 MCH 28.7 pg (27.0-33.0) 10/21/18 06:26 MCHC 32.7 g/dL (32.0-36.0) 10/21/18 06:26 RDW 13.2 % (11.7-14.6) 10/21/18 06:26 Plt Count 216 x1000/uL (130-400) 10/21/18 06:26 MPV 10.5 fL (8.0-11.0) 10/21/18 06:26 Immature Gran % 0.4 10/05/18 05:40 Neutrophils % 47.4 10/05/18 05:40 Lymphocytes % 27.5 10/05/18 05:40 Monocytes % 10.1 10/05/18 05:40 Eosinophils % 14.2 10/05/18 05:40 Basophils % 0.4 10/05/18 05:40 Absolute Neutrophils 2.34 k/cumm (1.2-6.7) 10/05/18 05:40 Absolute Lymphocytes 1.36 k/cumm (1.2-3.4) 10/05/18 05:40 Absolute Monocytes 0.50 k/cumm (0.11-0.7) 10/05/18 05:40 Absolute Eosinophils 0.70 k/cumm (0.0-0.7) 10/05/18 05:40 Absolute Basophils 0.02 k/cumm (0.0-0.2) 10/05/18 05:40 PT 10.7 sec (9.3-11.0) 10/20/18 07:00 INR 1.1 (0.9-1.1) 10/20/18 07:00 APTT 24.4 sec (21.0-31.4) 10/01/18 07:00 Sodium 134 mmol/L (136-145) L 10/21/18 06:26 Potassium 4.0 mmol/L (3.5-5.1) 10/21/18 06:26 Chloride 100 mmol/L (98-107) 10/21/18 06:26 Carbon Dioxide 24.6 mmol/L (21.0-32.0) 10/21/18 06:26 Anion Gap 9.4 mmol/L (3-11) 10/21/18 06:26 BUN 17 mg/dL (7-18) 10/21/18 06:26 Creatinine 0.74 mg/dL (0.55-1.02) 10/21/18 06:26 Estimated GFR/1.73 m2 >= 60.00 (mL/min/1.73m2) 10/21/18 06:26 Glucose 145 mg/dL (70-100) H 10/21/18 06:26 Lactate 1.1 mmol/l (0.6-1.4) 10/01/18 15:10 Calcium 8.4 mg/dL (8.5-10.1) L 10/21/18 06:26 Phosphorus 2.2 mg/dL (2.6-4.7) L 10/21/18 06:26 Magnesium 1.7 mg/dL (1.8-2.4) L 10/21/18 06:26 Iron 39 ug/dL (50-175) L 10/18/18 07:50 TIBC 277 ug/dL (250-450) 10/18/18 07:50 Transferrin % Sat 14 % (15-50) L 10/18/18 07:50 Ferritin 389 ng/mL (8-388) H 10/18/18 07:50 Total Bilirubin 0.7 mg/dL (0.2-1.0) 10/20/18 07:00 AST 64 U/L (15-37) H 10/17/18 06:50 ALT 61 U/L (12-78) 10/20/18 07:00 Alkaline Phosphatase 121 U/L (46-116) H 10/20/18 07:00 Total Protein 7.1 g/dL (6.4-8.2) 10/17/18 06:50 Albumin 2.3 g/dL (3.4-5.0) L 10/20/18 07:00 Prealbumin 17 mg/dL (20-40) L 10/10/18 06:50 Urine Color Yellow (Yellow) 10/21/18 11:42 Urine Clarity Clear 10/21/18 11:42 Urine pH 6.0 (5-8) 10/21/18 11:42 Ur Specific [place] 1.010 (1.005-1.025) 10/21/18 11:42 Urine Protein Trace mg/dL (Negative) H 10/21/18 11:42 Urine Ketones Negative mg/dL (Negative) 10/21/18 11:42 Urine Blood Negative (Negative) 10/21/18 11:42 Urine Nitrite Negative (Negative) 10/21/18 11:42 Urine Bilirubin Negative (Negative) 10/21/18 11:42 Urine Urobilinogen 0.2 EU/dL (Up TO 0.2) 10/21/18 11:42 Ur Leukocyte Esterase Negative (Negative) 10/21/18 11:42 Urine RBC 0-2 (0-2) 10/21/18 11:42 Urine WBC 3-5 HPF (0-5) 10/21/18 11:42 Ur Epithelial Cells Many HPF (Negative) 10/21/18 11:42 Urine Crystals Negative HPF (Negative) 10/21/18 11:42 Urine Bacteria Moderate HPF (Negative) 10/21/18 11:42 Urine Casts Comment LPF (Negative) 10/21/18 11:42 Urine Mucus Moderate (Negative) 10/21/18 11:42 Ur Culture Indicated? No/sq. contamination 10/21/18 11:42 Urine Glucose Negative mg/dL (Negative) 10/21/18 11:42 C.difficile Tox Ab Neut Cancelled 10/06/18 15:46
[2018-10-21] MEDS: LORazepam 2 MG/ML VIAL IVP (17:05)
[2018-10-21] MEDS: Insulin Aspart 300 UNITS/3 ML PEN SC (18:36)
--- NOTE | 2018-10-21 19:05 | NUR.NOTE ---
Nursing Note: Report received from SHMUEL Emery. Patient is in stable condition, currently resting in bed, reporting abdominal pain 7/ which I will treat per MD orders. Otherwise patient voices no needs, the bed is in the low and locked position, side rails up x2, call light within reach.
--- NOTE | 2018-10-21 22:31 | NUR.NOTE ---
Nursing Note: Patient straight cath'd per MD orders to collect urine for a UA. Procedure was completed per protocol, sterile technique maintained, patient tolerated well.
[2018-10-21 22:46] LABS: Bilirubin Negative (Negative); Blood Negative (Negative); Clarity Clear; Glucose Negative (Negative); Ketones Negative (Negative); Leukocyte Esterase Negative (Negative); Nitrite Negative (Negative); Specific Gravity <= 1.005 (1.005-1.025); Urobilinogen 0.2 EU/dL (Up TO 0.2); pH 6.5 (5-8)
[2018-10-22] MEDS: HYDROmorphone 2 MG/ML VIAL IVP ×10 (00:42→22:58)
[2018-10-22] MEDS: Normal Saline Flush 10 ML SYR IVP ×9 (00:42→22:57)
[2018-10-22] MEDS: oxyCODONE 5 MG TAB PO ×4 (00:42→21:28)
[2018-10-22 04:04] VITALS: BP 108/65; PULSE 91; RESP 20; TEMP 37.4; O2SAT 97
--- NOTE | 2018-10-22 06:43 | NUR.NOTE ---
Nursing Note: Unable to obtain lab draw from PICC line. Two RN's attempted. Lab staff notified.
[2018-10-22 07:40] VITALS: BP 122/71; PULSE 89; RESP 18; TEMP 37.1; O2SAT 100
[2018-10-22 08:02] LABS: Abs Immature Grans 0.03 k/cumm (0.0-0.09); Absolute Basophil Count 0.02 k/cumm (0.0-0.2); Absolute Eosinophil Count 0.59 k/cumm (0.0-0.7); Absolute Lymphocyte Count 1.39 k/cumm (1.2-3.4); Absolute Monocyte Count 0.54 k/cumm (0.11-0.7); Absolute Neutrophil Count 2.91 k/cumm (1.2-6.7); Basophils % 0.4; Eosinophils % 10.8; HCT 27.2 % (36.0-46.0); Immature Grans % 0.5; Lymphocytes % 25.4; Mean Corp. HGB Concentration 33.1 g/dL (32.0-36.0); Mean Corpuscular Hemoglobin 28.8 pg (27.0-33.0); Mean Corpuscular Volume 87.2 fL (80-95); Mean Platelet Volume 10.2 fL (8.0-11.0); Monocytes % 9.9; Platelet Count 211 x1000/uL (130-400); RBC 3.12 m/cumm (4.00-5.20); RBC Distribution Width 13.1 % (11.7-14.6); White Blood Cell Count 5.48 k/cumm (4.4-10.8)
[2018-10-22 08:14] LABS: Magnesium 1.8 mg/dL (1.8-2.4)
[2018-10-22] MEDS: Enoxaparin 40 MG/0.4 ML SYR SC (08:17)
[2018-10-22] MEDS: Normal Saline Flush 10 ML SYR 20 ML IVP ×2 (08:17→19:37)
--- NOTE | 2018-10-22 08:23 | W.PM.PROGNOT ---
Date of Service Date of service: 10/22/18 Time of Service: 07:00 Assessment and Plan (1) Anxiety and depression: Current visit: Yes Status: Acute P\\ To be seen by Dr. Jeronimo today (2) Fever: Current visit: Yes Status: Acute A\\ UA negative Increased LLQ abdominal pain- ? gas pain vs abscess P\\ Will order CT scan of abdomen and pelvis Qualifiers: Fever type: post-procedural Encounter type: Qualified Code(s): R50.82 - Postprocedural fever Subjective Interval history since last seen: Has had some increase in her pain in the LLQ. Still passing flatus but no BM. Tolerating clears without N/V. Continues to have low grade fevers. UA contaminated- order placed for a straight cath. Exam Resp Effort & Inspection: normal respiratory effort Auscultation: clear to auscultation bilaterally Cardio Rate: regular rate Rhythm: regular rhythm Heart Sounds: no gallops, no murmurs and no rubs GI Inspection: normal to inspection Palpation: soft and tender in the LLQ (No guarding or rebound) Objective Objective Clinical Data: Abnormal lab results 10/21/18 10/22/18 Range/Units 11:42 07:34 RBC 3.12 L (4.00-5.20) m/cumm Hgb 9.0 L (12.0-15.5) g/dL Hct 27.2 L (36.0-46.0) % Urine Protein Trace H (Negative) mg/dL Vital Signs Temperature 99.3 F 10/22/18 04:04 Temperature Source Tympanic 10/22/18 04:04 Pulse 91 H 10/22/18 04:04 Pulse Rhythm Regular 10/22/18 08:13 Pulse 89 09/30/18 23:50 Respiratory Rate 20 10/22/18 04:04 Respiratory Effort Non-Labored 10/22/18 08:13 Respiratory Depth Normal 10/22/18 08:13 Respiratory Pattern Normal 10/22/18 08:13 Blood Pressure 108/65 10/22/18 04:04 Blood Pressure Mean 85 09/30/18 23:36 Pulse Oximetry 97 10/22/18 04:04 Oxygen Delivery Method Room Air 10/22/18 04:04 Oxygen Flow Rate 0 10/22/18 04:04 Pain Level 9 10/22/18 08:17 Comment 10/21/18 09:30 Intake & Output 10/21/18 10/21/18 10/22/18 11:59 23:59 11:59 Intake Total 1236.418 / 3836.418 2600 / 3836.418 1031 / 1031 Output Total 200 / 1450 1250 / 1450 Balance 1036.418 / 2386.418 1350 / 2386.418 1031 / 1031 Weight 261 lb 14.546 oz Intake: IV 986.418 / 2296.418 1310 / 2296.418 1031 / 1031 Oral 250 / 1540 1290 / 1540 Output: Output, Wound Vac (mls) 200 / 200 Urine 1250 / 1250 Other: Urine Color Yellow Urine Appearance Clear Clear Comment voiding in toilet w/o difficulty Voiding Methods Toilet Laboratory Results WBC 5.48 k/cumm (4.4-10.8) 10/22/18 07:34 RBC 3.12 m/cumm (4.00-5.20) L 10/22/18 07:34 Hgb 9.0 g/dL (12.0-15.5) L 10/22/18 07:34 Hct 27.2 % (36.0-46.0) L 10/22/18 07:34 MCV 87.2 fL (80-95) 10/22/18 07:34 MCH 28.8 pg (27.0-33.0) 10/22/18 07:34 MCHC 33.1 g/dL (32.0-36.0) 10/22/18 07:34 RDW 13.1 % (11.7-14.6) 10/22/18 07:34 Plt Count 211 x1000/uL (130-400) 10/22/18 07:34 MPV 10.2 fL (8.0-11.0) 10/22/18 07:34 Immature Gran % 0.5 10/22/18 07:34 Neutrophils % 53.0 10/22/18 07:34 Lymphocytes % 25.4 10/22/18 07:34 Monocytes % 9.9 10/22/18 07:34 Eosinophils % 10.8 10/22/18 07:34 Basophils % 0.4 10/22/18 07:34 Absolute Neutrophils 2.91 k/cumm (1.2-6.7) 10/22/18 07:34 Absolute Lymphocytes 1.39 k/cumm (1.2-3.4) 10/22/18 07:34 Absolute Monocytes 0.54 k/cumm (0.11-0.7) 10/22/18 07:34 Absolute Eosinophils 0.59 k/cumm (0.0-0.7) 10/22/18 07:34 Absolute Basophils 0.02 k/cumm (0.0-0.2) 10/22/18 07:34 PT 10.7 sec (9.3-11.0) 10/20/18 07:00 INR 1.1 (0.9-1.1) 10/20/18 07:00 APTT 24.4 sec (21.0-31.4) 10/01/18 07:00 Sodium 134 mmol/L (136-145) L 10/21/18 06:26 Potassium 4.0 mmol/L (3.5-5.1) 10/21/18 06:26 Chloride 100 mmol/L (98-107) 10/21/18 06:26 Carbon Dioxide 24.6 mmol/L (21.0-32.0) 10/21/18 06:26 Anion Gap 9.4 mmol/L (3-11) 10/21/18 06:26 BUN 17 mg/dL (7-18) 10/21/18 06:26 Creatinine 0.74 mg/dL (0.55-1.02) 10/21/18 06:26 Estimated GFR/1.73 m2 >= 60.00 (mL/min/1.73m2) 10/21/18 06:26 Glucose 145 mg/dL (70-100) H 10/21/18 06:26 Lactate 1.1 mmol/l (0.6-1.4) 10/01/18 15:10 Calcium 8.4 mg/dL (8.5-10.1) L 10/21/18 06:26 Phosphorus 2.2 mg/dL (2.6-4.7) L 10/21/18 06:26 Magnesium 1.8 mg/dL (1.8-2.4) 10/22/18 07:34 Iron 39 ug/dL (50-175) L 10/18/18 07:50 TIBC 277 ug/dL (250-450) 10/18/18 07:50 Transferrin % Sat 14 % (15-50) L 10/18/18 07:50 Ferritin 389 ng/mL (8-388) H 10/18/18 07:50 Total Bilirubin 0.7 mg/dL (0.2-1.0) 10/20/18 07:00 AST 64 U/L (15-37) H 10/17/18 06:50 ALT 61 U/L (12-78) 10/20/18 07:00 Alkaline Phosphatase 121 U/L (46-116) H 10/20/18 07:00 Total Protein 7.1 g/dL (6.4-8.2) 10/17/18 06:50 Albumin 2.3 g/dL (3.4-5.0) L 10/20/18 07:00 Prealbumin 17 mg/dL (20-40) L 10/10/18 06:50 Urine Color Yellow (Yellow) 10/21/18 22:15 Urine Clarity Clear 10/21/18 22:15 Urine pH 6.5 (5-8) 10/21/18 22:15 Ur Specific [place] <= 1.005 (1.005-1.025) 10/21/18 22:15 Urine Protein Negative mg/dL (Negative) 10/21/18 22:15 Urine Ketones Negative mg/dL (Negative) 10/21/18 22:15 Urine Blood Negative (Negative) 10/21/18 22:15 Urine Nitrite Negative (Negative) 10/21/18 22:15 Urine Bilirubin Negative (Negative) 10/21/18 22:15 Urine Urobilinogen 0.2 EU/dL (Up TO 0.2) 10/21/18 22:15 Ur Leukocyte Esterase Negative (Negative) 10/21/18 22:15 Urine RBC 0-2 (0-2) 10/21/18 11:42 Urine WBC 3-5 HPF (0-5) 10/21/18 11:42 Ur Epithelial Cells Many HPF (Negative) 10/21/18 11:42 Urine Crystals Negative HPF (Negative) 10/21/18 11:42 Urine Bacteria Moderate HPF (Negative) 10/21/18 11:42 Urine Casts Comment LPF (Negative) 10/21/18 11:42 Urine Mucus Moderate (Negative) 10/21/18 11:42 Ur Culture Indicated? No/sq. contamination 10/21/18 11:42 Urine Glucose Negative mg/dL (Negative) 10/21/18 22:15 C.difficile Tox Ab Neut Cancelled 10/06/18 15:46
--- NOTE | 2018-10-22 09:40 | DI.CT_ITS ---
SYMPTOMS/DIAGNOSIS: INCREASED ABD PAIN, FEVERS CT SCAN OF THE ABDOMEN AND PELVIS: CT scan of the abdomen and pelvis was performed following the uneventful administration of intravenous and oral contrast material. There is patient motion artifact present. Scarring or atelectasis is seen in the left lung base. There is no evidence of a hepatic mass. The portal, superior mesenteric and splenic veins are patent. The patient is status post cholecystectomy. No biliary ductal dilatation is seen. The pancreas is unremarkable. The spleen appears mildly enlarged. The adrenal glands appear grossly unremarkable. The kidneys show normal and symmetric enhancement. There is a left renal cyst again seen. No obstruction is identified. The urinary bladder is intact. The patient appears to be status post hysterectomy. The abdominal aorta is normal in caliber. No significant abdominal or pelvic adenopathy is appreciated. Post surgical changes are seen at the rectosigmoid anastomosis. There does appear to be thickening of the wall of the cecum and proximal ascending colon. There are also post surgical changes with anastomotic clips in the small bowel in the left abdomen. The left lower ostomy has been taken down. In the left lower quadrant there is a fluid collection with a small focus of air at the site of the ostomy and anastomosis. It appears to be U-shaped and lies on either side of the anastomosed bowel. The largest collection is seen medially and measures 3.5 cm transverse by 2.4 cm AP by 5.2 cm craniocaudally. The fluid collection to the left of the anastomotic bowel measures 2 x 2 cm. The findings are suspicious for an abscess. There is inflammatory stranding seen in the anterior abdominal wall on the left in the region of the previous ostomy. IMPRESSION: 1. Status post left lower quadrant ostomy take down. 2. Intra-abdominal fluid collections deep to the left anterior abdominal wall in the region of the ostomy. There are foci of air seen within the fluid. The findings are suspicious for an abscess. 3. Post surgical changes seen in the left lower quadrant small bowel and at the rectosigmoid junction. 4. Apparent wall thickening seen in the cecum. No definite pericolonic inflammatory changes are seen but an inflammatory or infectious colitis can not be excluded. 5. Splenomegaly.
[2018-10-22] MEDS: Omnipaque 350 MG/ML 100 ML BTL IJ (10:10)
--- NOTE | 2018-10-22 10:54 | PDOC.CMPRO ---
- If Service Date Differs Date of service: 10/22/18 Time of Service: 10:54 Care Management Progress Note S/O: Radha is sitting up in bed when this credit underwriter visits this morning. Her [employer] is in the room with her. Radha states that she a psychiatry consult today, and Dr. Schneider states that she will meet with her around lunchtime today. Radha states that she is receptive to talking with Dr. Schneider today. Radha also states that she has received a letter and a couple of emails from [facility] and that they are currently reviewing the clinicals sent to them. CM notified [facility] that Radha will not be ready for DC today. A: 48 y.o. female readmitted for facial dehiscence P: Return to her mother's home in [place] when medically cleared for discharge. She will have home health RN services through the [facility]. Family to transport.
--- NOTE | 2018-10-22 11:39 | W.PSYCHCONSU ---
Date of service: 10/22/18 Time of Service: 11:02 History of Present Illness Narrative: Primary Care Provider: Danna Gonzalez NP at [facility] Information source: Patient, chart, medical team Reason for consult: Ayala Kim MD requested inpatient consultation for Radha Parada with question of assessment and treatment of mood and anxiety in setting of complicated post-operative course. History Of Present Illness: Patient was admitted to [facility] on September 10, 2018 with complications of ileostomy a few days after being discharged from previous admission for bowel perforation secondary to diverticulitis and ileostomy placement. Ileostomy was reversed due to high output leading to dehydration and acute kidney injury. 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 Mood: pissed off I feel out of control. This refers to her physical health and disability less than her emotions. She reports being angry that her employer posted her position as open when she is out on [place]. She reports being able to have a positive outlook for her future We'll get through this somehow and being able to experience jalen and humor with her visitors. She denies a history of major depression or suicidal ideation. She denies suicidal ideation, denies feels down or depression, denies feeling hopeless or worthless currently. Anxiety: she endorses sometimes worrying but not feeling out of control of worrying. She denies feeling excessive tension or worry while here in the hospital. Trauma/PTSD: she denies physical or cognition or emotional sequelae from any past stressors currently. Specifically, she denies her current illness triggering memories or flashbacks/nightmares. Sleep: she reports improved sleep since night-time nursing care has been postponed to morning. Geeta endorses at home sometimes having trouble falling asleep due to worries but not on a regular basis. Compulsions: she denies feeling out of control of behaviors such as with eating, picking, spending, gambling. Substances: - alcohol: denies - tobacco: reports stopping smoking with onset of current surgical treatments, does not plan to smoke when she returns home, has already stopped smoking so her home will be smoke free. 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 - supportive mother in [place] and nearby REVIEW OF SYSTEMS: Constitutional: pain under good control here Cardiovascular: No chest pains or dizziness Respiratory: no cough or shortness of breath Musculoskeletal: no weakness or trouble walking GI: +abdominal discomfort post surgery, +liquid diet, appetite is fine Genitourinary: No dysuria, frequency of urination, hematuria Neurological: No weakness, seizures, numbness, tics, ataxia Psych: see above Endocrine: No cold or heat intolerance, polyuria, excessive thirst Hem/Lymph: No bruising, bleeding Allergies: see chart MENTAL STATUS EXAM: Constitutional: appears obese, stated age, resting comfortably in bed, awake and alert Attitude: cooperative Psychomotor: no retardation or agitation Speech: nonpressured, normal volume and prosody. No articulation problems noted. Associations: no looseness Thought process: linear, logical, goal directed Thought content without psychosis, delusions, obsessions No suicidal or homicidal ideations Hallucinations denied Mood: pissed off Affect: easily tearful when discussing health frustration but with spontaneous cognitive reframing regains composure and even smiles and jokes appropriately Attention/Concentration: intact Judgment/insight: fair/fair Oriented x 4 Language appropriate to age and education Fund of knowledge appropriate to age and education Memory intact to recent and remote events Other cognitive testing: none Assessment and Plan (1) Anxiety and depression: Current visit: Yes Status: Acute Radha Parada is a 48 year old female with no past psychiatric diagnoses or treatment admitted for complications of ileostomy placement now reversed due to dehydration and acute kidney injury. She has been noted by her surgeon, Dr. Mittal, to be struggling with her health circumstance and requested psychiatry consultation. History and clinical exam support situationally appropriate anxiety and dysphoria but no anxiety or mood symptoms that meet criteria for a disorder or that would require treatment with medication. Ms. Parada stated preference not to take psychotropic medications at this time. I discussed with patient the symptoms to look for for worsening mood and anxiety and that she can request psychiatric and behavioral health services through her primary care if she experiences such symptoms after discharge from [facility] inpatient stay. I also am happy to talk with her again should further questions or concerns arise. Dr. Mittal is welcome to contact me at any time with questions or concerns. Recommendations: - no psychiatric medications recommended at this time - happy to re-evaluate if indicated Visit Statistics Total Visit Minutes: 55 Visit Time Allocation >50% of face to face visit spent in counseling (Extensive teaching, explanation and instructions. Counseling as appropriate. Review of plans, and discussion concerning medical problems dealt with at this visit. Discussion of benefits/risks of treatment, anticipated course of events, potential medication side effects, options, alternatives, and follow up plans. Questions were solicited and answered, and the patient verbalized understanding.), and/or coordination of care. [facility] Medical History DM2 (diabetes mellitus, type 2) (Chronic) Essential hypertension (Chronic) Morbid obesity (Chronic) Surgical History S/P colectomy (Acute 09/16/18) History of bilateral oophorectomies (Resolved) History of cholecystectomy (Resolved) History of ureter repair (Resolved) Status post complete hysterectomy (Resolved) Family History Father CAD (coronary artery disease) AMI (acute myocardial infarction) Maternal Aunt Breast cancer Social History Smoking and Tabacco status: Current every day Results Last Vital Signs Temp 37.1 C 10/22/18 07:40 Pulse 89 10/22/18 07:40 Resp 18 10/22/18 07:40 BP 122/71 10/22/18 07:40 Pulse Ox 100 10/22/18 07:40 Labs : 10/22/18 07:34 10/21/18 06:26 Laboratory Results - last 24 hr 10/21/18 10/21/18 10/21/18 11:42 22:15 22:15 WBC RBC Hgb Hct MCV MCH MCHC RDW Plt Count MPV Immature Gran % Neutrophils % Lymphocytes % Monocytes % Eosinophils % Basophils % Absolute Neutrophils Absolute Lymphocytes Absolute Monocytes Absolute Eosinophils Absolute Basophils Magnesium Urine Color Yellow Yellow Cancelled Urine Clarity Clear Clear Cancelled Urine pH 6.0 6.5 Cancelled Ur Specific [place] 1.010 <= 1.005 Cancelled Urine Protein Trace H Negative Cancelled Urine Ketones Negative Negative Cancelled Urine Blood Negative Negative Cancelled Urine Nitrite Negative Negative Cancelled Urine Bilirubin Negative Negative Cancelled Urine Urobilinogen 0.2 0.2 Cancelled Ur Leukocyte Esterase Negative Negative Cancelled Urine RBC 0-2 Urine WBC 3-5 Ur Epithelial Cells Many Urine Crystals Negative Urine Bacteria Moderate Urine Casts Comment Urine Mucus Moderate Ur Culture Indicated? No/sq. contamination Urine Glucose Negative Negative Cancelled 10/22/18 10/22/18 07:34 07:34 WBC 5.48 RBC 3.12 L Hgb 9.0 L Hct 27.2 L MCV 87.2 MCH 28.8 MCHC 33.1 RDW 13.1 Plt Count 211 MPV 10.2 Immature Gran % 0.5 Neutrophils % 53.0 Lymphocytes % 25.4 Monocytes % 9.9 Eosinophils % 10.8 Basophils % 0.4 Absolute Neutrophils 2.91 Absolute Lymphocytes 1.39 Absolute Monocytes 0.54 Absolute Eosinophils 0.59 Absolute Basophils 0.02 Magnesium 1.8 Urine Color Urine Clarity Urine pH Ur Specific [place] Urine Protein Urine Ketones Urine Blood Urine Nitrite Urine Bilirubin Urine Urobilinogen Ur Leukocyte Esterase Urine RBC Urine WBC Ur Epithelial Cells Urine Crystals Urine Bacteria Urine Casts Urine Mucus Ur Culture Indicated? Urine Glucose
[2018-10-22 11:47] VITALS: BP 97/62; PULSE 94; RESP 18; TEMP 37.3; O2SAT 99
[2018-10-22] MEDS: Insulin Aspart 300 UNITS/3 ML PEN SC (12:01)
--- NOTE | 2018-10-22 12:39 | PGE_ITS ---
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 ? abscess. This was discussed with neda Rosales\\ Will discuss with IR at [facility] and see if they can place a drain under either US or CT scan. Subjective Interval history since last seen: Doing OK. No changes since this am Objective Objective Clinical Data: Abnormal lab results 10/22/18 Range/Units 07:34 RBC 3.12 L (4.00-5.20) m/cumm Hgb 9.0 L (12.0-15.5) g/dL Hct 27.2 L (36.0-46.0) % Vital Signs Temperature 98.8 F 10/22/18 07:40 Temperature Source Tympanic 10/22/18 07:40 Pulse 89 10/22/18 07:40 Pulse Rhythm Regular 10/22/18 08:13 Pulse 89 09/30/18 23:50 Respiratory Rate 18 10/22/18 07:40 Respiratory Effort Non-Labored 10/22/18 08:13 Respiratory Depth Normal 10/22/18 08:13 Respiratory Pattern Normal 10/22/18 08:13 Blood Pressure 122/71 10/22/18 07:40 Blood Pressure Mean 85 09/30/18 23:36 Pulse Oximetry 100 10/22/18 07:40 Oxygen Delivery Method Room Air 10/22/18 07:40 Oxygen Flow Rate 0 10/22/18 07:40 Pain Level 9 10/22/18 12:16 Comment 10/21/18 09:30 Intake & Output 10/21/18 10/22/18 10/22/18 23:59 11:59 23:59 Intake Total 2600 / 3836.418 1051 / 1051 Output Total 1250 / 1450 1250 / 1250 Balance 1350 / 2386.418 -199 / -199 Weight 262 lb 5.601 oz Intake: IV 1310 / 2296.418 1051 / 1051 Oral 1290 / 1540 Output: Urine 1250 / 1250 1250 / 1250 Other: Urine Color Yellow Yellow Urine Appearance Clear Clear Comment Multiple voids; commode and toilet. Voiding Methods Toilet Toilet Bedside Commode Laboratory Results WBC 5.48 k/cumm (4.4-10.8) 10/22/18 07:34 RBC 3.12 m/cumm (4.00-5.20) L 10/22/18 07:34 Hgb 9.0 g/dL (12.0-15.5) L 10/22/18 07:34 Hct 27.2 % (36.0-46.0) L 10/22/18 07:34 MCV 87.2 fL (80-95) 10/22/18 07:34 MCH 28.8 pg (27.0-33.0) 10/22/18 07:34 MCHC 33.1 g/dL (32.0-36.0) 10/22/18 07:34 RDW 13.1 % (11.7-14.6) 10/22/18 07:34 Plt Count 211 x1000/uL (130-400) 10/22/18 07:34 MPV 10.2 fL (8.0-11.0) 10/22/18 07:34 Immature Gran % 0.5 10/22/18 07:34 Neutrophils % 53.0 10/22/18 07:34 Lymphocytes % 25.4 10/22/18 07:34 Monocytes % 9.9 10/22/18 07:34 Eosinophils % 10.8 10/22/18 07:34 Basophils % 0.4 10/22/18 07:34 Absolute Neutrophils 2.91 k/cumm (1.2-6.7) 10/22/18 07:34 Absolute Lymphocytes 1.39 k/cumm (1.2-3.4) 10/22/18 07:34 Absolute Monocytes 0.54 k/cumm (0.11-0.7) 10/22/18 07:34 Absolute Eosinophils 0.59 k/cumm (0.0-0.7) 10/22/18 07:34 Absolute Basophils 0.02 k/cumm (0.0-0.2) 10/22/18 07:34 PT 10.7 sec (9.3-11.0) 10/20/18 07:00 INR 1.1 (0.9-1.1) 10/20/18 07:00 APTT 24.4 sec (21.0-31.4) 10/01/18 07:00 Sodium 134 mmol/L (136-145) L 10/21/18 06:26 Potassium 4.0 mmol/L (3.5-5.1) 10/21/18 06:26 Chloride 100 mmol/L (98-107) 10/21/18 06:26 Carbon Dioxide 24.6 mmol/L (21.0-32.0) 10/21/18 06:26 Anion Gap 9.4 mmol/L (3-11) 10/21/18 06:26 BUN 17 mg/dL (7-18) 10/21/18 06:26 Creatinine 0.74 mg/dL (0.55-1.02) 10/21/18 06:26 Estimated GFR/1.73 m2 >= 60.00 (mL/min/1.73m2) 10/21/18 06:26 Glucose 145 mg/dL (70-100) H 10/21/18 06:26 Lactate 1.1 mmol/l (0.6-1.4) 10/01/18 15:10 Calcium 8.4 mg/dL (8.5-10.1) L 10/21/18 06:26 Phosphorus 2.2 mg/dL (2.6-4.7) L 10/21/18 06:26 Magnesium 1.8 mg/dL (1.8-2.4) 10/22/18 07:34 Iron 39 ug/dL (50-175) L 10/18/18 07:50 TIBC 277 ug/dL (250-450) 10/18/18 07:50 Transferrin % Sat 14 % (15-50) L 10/18/18 07:50 Ferritin 389 ng/mL (8-388) H 10/18/18 07:50 Total Bilirubin 0.7 mg/dL (0.2-1.0) 10/20/18 07:00 AST 64 U/L (15-37) H 10/17/18 06:50 ALT 61 U/L (12-78) 10/20/18 07:00 Alkaline Phosphatase 121 U/L (46-116) H 10/20/18 07:00 Total Protein 7.1 g/dL (6.4-8.2) 10/17/18 06:50 Albumin 2.3 g/dL (3.4-5.0) L 10/20/18 07:00 Prealbumin 17 mg/dL (20-40) L 10/10/18 06:50 Urine Color Yellow (Yellow) 10/21/18 22:15 Urine Clarity Clear 10/21/18 22:15 Urine pH 6.5 (5-8) 10/21/18 22:15 Ur [address] [place] <= 1.005 (1.005-1.025) 10/21/18 22:15 Urine Protein Negative mg/dL (Negative) 10/21/18 22:15 Urine Ketones Negative mg/dL (Negative) 10/21/18 22:15 Urine Blood Negative (Negative) 10/21/18 22:15 Urine Nitrite Negative (Negative) 10/21/18 22:15 Urine Bilirubin Negative (Negative) 10/21/18 22:15 Urine Urobilinogen 0.2 EU/dL (Up TO 0.2) 10/21/18 22:15 Ur Leukocyte Esterase Negative (Negative) 10/21/18 22:15 Urine RBC 0-2 (0-2) 10/21/18 11:42 Urine WBC 3-5 HPF (0-5) 10/21/18 11:42 Ur Epithelial Cells Many HPF (Negative) 10/21/18 11:42 Urine Crystals Negative HPF (Negative) 10/21/18 11:42 Urine Bacteria Moderate HPF (Negative) 10/21/18 11:42 Urine Casts Comment LPF (Negative) 10/21/18 11:42 Urine Mucus Moderate (Negative) 10/21/18 11:42 Ur Culture Indicated? No/sq. contamination 10/21/18 11:42 Urine Glucose Negative mg/dL (Negative) 10/21/18 22:15 C.difficile Tox Ab Neut Cancelled 10/06/18 15:46
--- NOTE | 2018-10-22 14:03 | CMPROGNOTE_ITS ---
- If Service Date Differs Date of service: 10/22/18 Time of Service: 10:54 Care Management Progress Note S/O: Radha is sitting up in bed when this conventional mortgage underwriter visits this morning. Her [employer] is in the room with her. Radha states that she a psychiatry consult today, and Dr. Schneider states that she will meet with her around lunchtime today. Radha states that she is receptive to talking with Dr. Schneider today. Radha also states that she has received a letter and a couple of emails from [facility] and that they are currently reviewing the clinicals sent to them. CM notified [facility] that Radha will not be ready for DC today. A: 48 y.o. female readmitted for facial dehiscence P: Return to her mother's home in [place] when medically cleared for discharge. She will have home health RN services through the [facility]. Family to transport.
[2018-10-22 15:27] LABS: Prothrombin Time 10.3 sec (9.3-11.0)
--- NOTE | 2018-10-22 15:33 | W.PM.PROGNOT ---
Date of Service Date of service: 10/22/18 Time of Service: 15:34 Assessment and Plan (1) Fluid collection at surgical site: Current visit: Yes Status: Acute -off abx -no other source for infection -awaiting results from IR drain placement to resume abx -C. Diff is pd -paperwork down for transfer adn return for drain Subjective Interval history since last seen: pt noted to have 5cm fluid collection on CT. intermittent fevers for 36 hrs. pt is going to [facility] in am for IR drain placement. orders/transfer signed. Pt is not currently on any abx. no wbc. see what cultures/periph smear show from IR asp/drain. Cultures not done recently. UA was neg. Pt will be returned to [facility] after the drain is placed. no fevers today. Is receiving pain meds w/ tylenol. + diarrhea. C diff is still pd. off abx/on pro-biotics. no productive cough. no breakdown. no calf pain or swelling. UA was neg. UA neg. await results of cultures on fluid collection. wound was viewed today/ healthy granulation tissue- 95%. no increase in drainage. Objective Objective Clinical Data: Abnormal lab results 10/22/18 Range/Units 07:34 RBC 3.12 L (4.00-5.20) m/cumm Hgb 9.0 L (12.0-15.5) g/dL Hct 27.2 L (36.0-46.0) % Vital Signs Temperature 37.3 C 10/22/18 11:47 Temperature Source Tympanic 10/22/18 11:47 Pulse 94 H 10/22/18 11:47 Pulse Rhythm Regular 10/22/18 08:13 Pulse 89 09/30/18 23:50 Respiratory Rate 18 10/22/18 11:47 Respiratory Effort Non-Labored 10/22/18 08:13 Respiratory Depth Normal 10/22/18 08:13 Respiratory Pattern Normal 10/22/18 08:13 Blood Pressure 97/62 L 10/22/18 11:47 Blood Pressure Mean 85 09/30/18 23:36 Pulse Oximetry 99 10/22/18 11:47 Oxygen Delivery Method Room Air 10/22/18 11:47 Oxygen Flow Rate 0 10/22/18 11:47 Pain Level 8 10/22/18 15:21 Comment 10/21/18 09:30 Intake & Output 10/21/18 10/22/18 10/22/18 23:59 11:59 23:59 Intake Total 2600 / 3836.418 1051 / 1051 Output Total 1250 / 1450 1250 / 1250 Balance 1350 / 2386.418 -199 / -199 Weight 119 kg Intake: IV 1310 / 2296.418 1051 / 1051 Oral 1290 / 1540 Output: Urine 1250 / 1250 1250 / 1250 Other: Urine Color Yellow Yellow Urine Appearance Clear Clear Comment Multiple voids; commode and toilet. Voiding Methods Toilet Toilet Bedside Commode Laboratory Results WBC 5.48 k/cumm (4.4-10.8) 10/22/18 07:34 RBC 3.12 m/cumm (4.00-5.20) L 10/22/18 07:34 Hgb 9.0 g/dL (12.0-15.5) L 10/22/18 07:34 Hct 27.2 % (36.0-46.0) L 10/22/18 07:34 MCV 87.2 fL (80-95) 10/22/18 07:34 MCH 28.8 pg (27.0-33.0) 10/22/18 07:34 MCHC 33.1 g/dL (32.0-36.0) 10/22/18 07:34 RDW 13.1 % (11.7-14.6) 10/22/18 07:34 Plt Count 211 x1000/uL (130-400) 10/22/18 07:34 MPV 10.2 fL (8.0-11.0) 10/22/18 07:34 Immature Gran % 0.5 10/22/18 07:34 Neutrophils % 53.0 10/22/18 07:34 Lymphocytes % 25.4 10/22/18 07:34 Monocytes % 9.9 10/22/18 07:34 Eosinophils % 10.8 10/22/18 07:34 Basophils % 0.4 10/22/18 07:34 Absolute Neutrophils 2.91 k/cumm (1.2-6.7) 10/22/18 07:34 Absolute Lymphocytes 1.39 k/cumm (1.2-3.4) 10/22/18 07:34 Absolute Monocytes 0.54 k/cumm (0.11-0.7) 10/22/18 07:34 Absolute Eosinophils 0.59 k/cumm (0.0-0.7) 10/22/18 07:34 Absolute Basophils 0.02 k/cumm (0.0-0.2) 10/22/18 07:34 PT 10.3 sec (9.3-11.0) 10/22/18 15:07 INR 1.0 (0.9-1.1) 10/22/18 15:07 APTT 24.4 sec (21.0-31.4) 10/01/18 07:00 Sodium 134 mmol/L (136-145) L 10/21/18 06:26 Potassium 4.0 mmol/L (3.5-5.1) 10/21/18 06:26 Chloride 100 mmol/L (98-107) 10/21/18 06:26 Carbon Dioxide 24.6 mmol/L (21.0-32.0) 10/21/18 06:26 Anion Gap 9.4 mmol/L (3-11) 10/21/18 06:26 BUN 17 mg/dL (7-18) 10/21/18 06:26 Creatinine 0.74 mg/dL (0.55-1.02) 10/21/18 06:26 Estimated GFR/1.73 m2 >= 60.00 (mL/min/1.73m2) 10/21/18 06:26 Glucose 145 mg/dL (70-100) H 10/21/18 06:26 Lactate 1.1 mmol/l (0.6-1.4) 10/01/18 15:10 Calcium 8.4 mg/dL (8.5-10.1) L 10/21/18 06:26 Phosphorus 2.2 mg/dL (2.6-4.7) L 10/21/18 06:26 Magnesium 1.8 mg/dL (1.8-2.4) 10/22/18 07:34 Iron 39 ug/dL (50-175) L 10/18/18 07:50 TIBC 277 ug/dL (250-450) 10/18/18 07:50 Transferrin % Sat 14 % (15-50) L 10/18/18 07:50 Ferritin 389 ng/mL (8-388) H 10/18/18 07:50 Total Bilirubin 0.7 mg/dL (0.2-1.0) 10/20/18 07:00 AST 64 U/L (15-37) H 10/17/18 06:50 ALT 61 U/L (12-78) 10/20/18 07:00 Alkaline Phosphatase 121 U/L (46-116) H 10/20/18 07:00 Total Protein 7.1 g/dL (6.4-8.2) 10/17/18 06:50 Albumin 2.3 g/dL (3.4-5.0) L 10/20/18 07:00 Prealbumin 17 mg/dL (20-40) L 10/10/18 06:50 Urine Color Yellow (Yellow) 10/21/18 22:15 Urine Clarity Clear 10/21/18 22:15 Urine pH 6.5 (5-8) 10/21/18 22:15 Ur Specific [place] <= 1.005 (1.005-1.025) 10/21/18 22:15 Urine Protein Negative mg/dL (Negative) 10/21/18 22:15 Urine Ketones Negative mg/dL (Negative) 10/21/18 22:15 Urine Blood Negative (Negative) 10/21/18 22:15 Urine Nitrite Negative (Negative) 10/21/18 22:15 Urine Bilirubin Negative (Negative) 10/21/18 22:15 Urine Urobilinogen 0.2 EU/dL (Up TO 0.2) 10/21/18 22:15 Ur Leukocyte Esterase Negative (Negative) 10/21/18 22:15 Urine RBC 0-2 (0-2) 10/21/18 11:42 Urine WBC 3-5 HPF (0-5) 10/21/18 11:42 Ur Epithelial Cells Many HPF (Negative) 10/21/18 11:42 Urine Crystals Negative HPF (Negative) 10/21/18 11:42 Urine Bacteria Moderate HPF (Negative) 10/21/18 11:42 Urine Casts Comment LPF (Negative) 10/21/18 11:42 Urine Mucus Moderate (Negative) 10/21/18 11:42 Ur Culture Indicated? No/sq. contamination 10/21/18 11:42 Urine Glucose Negative mg/dL (Negative) 10/21/18 22:15 C.difficile Tox Ab Neut Cancelled 10/06/18 15:46
[2018-10-22 16:00] VITALS: BP 123/75; PULSE 98; RESP 16; TEMP 37.1; O2SAT 99
[2018-10-22] MEDS: Alteplase 2 MG VIAL IJ (17:06)
[2018-10-22] MEDS: Water,Injection,Bacteriostatic 30 ML VIAL (17:07)
--- NOTE | 2018-10-22 19:26 | DI.RAD_ITS ---
SYMPTOMS/DIAGNOSIS: CONFIRM PICC PLACEMENT PORTABLE AP CHEST: The heart size and pulmonary vasculature are within normal limits. The tip of the left PICC line is is in good position at the junction of the superior vena cava and right atrium. The lungs are clear. No effusions or pneumothoraces are identified. IMPRESSION: 1. No acute pulmonary process. 2. Tip of the left PICC is in good position at the cavoatrial junction.
[2018-10-22] MEDS: Acetaminophen 325 MG TAB 650 MG PO (19:36)
[2018-10-22 19:43] VITALS: BP 110/71; PULSE 100; RESP 18; TEMP 37.8; O2SAT 99
--- NOTE | 2018-10-22 19:59 | DI.VRAD_ITS ---
EXAM: XR Chest, 1 View EXAM DATE/TIME: 10/22/2018 7:12 PM CLINICAL HISTORY: 48 years old, female; Device placement; Picc; Additional info: Verify line placement TECHNIQUE: XR of the chest, 1 view. COMPARISON: SC XR PORTABLE CHEST AP 09/19/2018 6:55 AM FINDINGS: Tubes, catheters and devices: Left PICC line is noted with tip in the cavoatrial junction. Lungs: Unremarkable. No consolidation. Pleural space: Unremarkable. No pleural effusion. No pneumothorax. Heart/Mediastinum: Unremarkable. No cardiomegaly. Bones/joints: Unremarkable. IMPRESSION: Left PICC line with tip in the cavoatrial junction. No acute thoracic pathology otherwise. Dictated and Authenticated by: Yoandy Sheridan MD. Ordering:TRISTAN Cervantes MD
[2018-10-22] MEDS: Ketorolac 30 MG/ML VIAL IVP (21:28)
[2018-10-23 00:15] VITALS: BP 114/71; PULSE 86; RESP 16; TEMP 36.7; O2SAT 99
[2018-10-23] MEDS: HYDROmorphone 2 MG/ML VIAL IVP ×7 (01:28→17:14)
[2018-10-23] MEDS: Normal Saline Flush 10 ML SYR IVP ×7 (01:28→21:40)
[2018-10-23 03:30] VITALS: BP 117/75; PULSE 86; RESP 18; TEMP 36.5; O2SAT 100
[2018-10-23 07:25] VITALS: BP 118/76; PULSE 89; RESP 18; TEMP 36.8; O2SAT 96
[2018-10-23] MEDS: Alteplase 2 MG VIAL IJ (08:06)
[2018-10-23] MEDS: Water,Injection,Bacteriostatic 30 ML VIAL (08:07)
--- NOTE | 2018-10-23 08:51 | PGE_ITS ---
Date of Service Date of service: 10/23/18 Time of Service: 08:50 Assessment and Plan (1) Fluid collection at surgical site: Current visit: Yes Status: Acute -today at approx 1pm will leave for drain. home this evening. see what rads finds adn how pt feels if will resume tpn vs just oral feeds. also will determine abx. cont supportive care. holding lovenox until after procedure. (2) Fever: Current visit: Yes Status: Acute as above Qualifiers: Encounter type: Fever type: post-procedural Qualified Code(s): R50.82 - Postprocedural fever (3) Open abdominal wall wound: Current visit: Yes Status: Acute as above Qualifiers: Encounter type: subsequent encounter Qualified Code(s): S31.109D - Unspecified open wound of abdominal wall, unspecified quadrant without penetration into peritoneal cavity, subsequent encounter Subjective Interval history since last seen: pt had low grade temp over night. no labs. PICC running very slowly and did get a dose of cath kris. weaned tpn to off currently. glucose- 98. c diff was neg. awaiting to go to [facility] today for IR perc drain of fluid collection. currently not on abx Objective Objective Clinical Data: Vital Signs Temperature 36.5 C 10/23/18 03:30 Temperature Source Tympanic 10/23/18 03:30 Pulse 86 10/23/18 03:30 Pulse Rhythm Regular 10/23/18 00:15 Pulse 89 09/30/18 23:50 Respiratory Rate 18 10/23/18 03:30 Respiratory Effort Non-Labored 10/23/18 00:15 Respiratory Depth Normal 10/23/18 00:15 Respiratory Pattern Normal 10/23/18 00:15 Blood Pressure 117/75 10/23/18 03:30 Blood Pressure Mean 85 09/30/18 23:36 Pulse Oximetry 100 10/23/18 03:30 Oxygen Delivery Method Room Air 10/23/18 03:30 Oxygen Flow Rate 0 10/23/18 03:30 Pain Level 8 10/23/18 07:11 Comment 10/23/18 03:30 Intake & Output 10/22/18 10/22/18 10/23/18 11:59 23:59 11:59 Intake Total 1051 / 2611.776 1560.776 / 2611.776 177.090 / 177.090 Output Total 1250 / 2150 900 / 2150 1300 / 1300 Balance -199 / 461.776 660.776 / 461.776 -1122.910 / -1122.910 Weight 119 kg 120 kg Intake: IV 1051 / 2611.776 1560.776 / 2611.776 177.090 / 177.090 Output: Urine 1250 / 2150 900 / 2150 1300 / 1300 Other: Urine Color Yellow Yellow Yellow Urine Appearance Clear Clear Clear Urine Odor Normal Normal Comment Multiple voids; commode and toilet. Voiding Methods Toilet Toilet Bedside Commode Bedside Commode Laboratory Results WBC 5.48 k/cumm (4.4-10.8) 10/22/18 07:34 RBC 3.12 m/cumm (4.00-5.20) L 10/22/18 07:34 Hgb 9.0 g/dL (12.0-15.5) L 10/22/18 07:34 Hct 27.2 % (36.0-46.0) L 10/22/18 07:34 MCV 87.2 fL (80-95) 10/22/18 07:34 MCH 28.8 pg (27.0-33.0) 10/22/18 07:34 MCHC 33.1 g/dL (32.0-36.0) 10/22/18 07:34 RDW 13.1 % (11.7-14.6) 10/22/18 07:34 Plt Count 211 x1000/uL (130-400) 10/22/18 07:34 MPV 10.2 fL (8.0-11.0) 10/22/18 07:34 Immature Gran % 0.5 10/22/18 07:34 Neutrophils % 53.0 10/22/18 07:34 Lymphocytes % 25.4 10/22/18 07:34 Monocytes % 9.9 10/22/18 07:34 Eosinophils % 10.8 10/22/18 07:34 Basophils % 0.4 10/22/18 07:34 Absolute Neutrophils 2.91 k/cumm (1.2-6.7) 10/22/18 07:34 Absolute Lymphocytes 1.39 k/cumm (1.2-3.4) 10/22/18 07:34 Absolute Monocytes 0.54 k/cumm (0.11-0.7) 10/22/18 07:34 Absolute Eosinophils 0.59 k/cumm (0.0-0.7) 10/22/18 07:34 Absolute Basophils 0.02 k/cumm (0.0-0.2) 10/22/18 07:34 PT 10.3 sec (9.3-11.0) 10/22/18 15:07 INR 1.0 (0.9-1.1) 10/22/18 15:07 APTT 24.4 sec (21.0-31.4) 10/01/18 07:00 Sodium 134 mmol/L (136-145) L 10/21/18 06:26 Potassium 4.0 mmol/L (3.5-5.1) 10/21/18 06:26 Chloride 100 mmol/L (98-107) 10/21/18 06:26 Carbon Dioxide 24.6 mmol/L (21.0-32.0) 10/21/18 06:26 Anion Gap 9.4 mmol/L (3-11) 10/21/18 06:26 BUN 17 mg/dL (7-18) 10/21/18 06:26 Creatinine 0.74 mg/dL (0.55-1.02) 10/21/18 06:26 Estimated GFR/1.73 m2 >= 60.00 (mL/min/1.73m2) 10/21/18 06:26 Glucose 145 mg/dL (70-100) H 10/21/18 06:26 Lactate 1.1 mmol/l (0.6-1.4) 10/01/18 15:10 Calcium 8.4 mg/dL (8.5-10.1) L 10/21/18 06:26 Phosphorus 2.2 mg/dL (2.6-4.7) L 10/21/18 06:26 Magnesium 1.8 mg/dL (1.8-2.4) 10/22/18 07:34 Iron 39 ug/dL (50-175) L 10/18/18 07:50 TIBC 277 ug/dL (250-450) 10/18/18 07:50 Transferrin % Sat 14 % (15-50) L 10/18/18 07:50 Ferritin 389 ng/mL (8-388) H 10/18/18 07:50 Total Bilirubin 0.7 mg/dL (0.2-1.0) 10/20/18 07:00 AST 64 U/L (15-37) H 10/17/18 06:50 ALT 61 U/L (12-78) 10/20/18 07:00 Alkaline Phosphatase 121 U/L (46-116) H 10/20/18 07:00 Total Protein 7.1 g/dL (6.4-8.2) 10/17/18 06:50 Albumin 2.3 g/dL (3.4-5.0) L 10/20/18 07:00 Prealbumin 17 mg/dL (20-40) L 10/10/18 06:50 Urine Color Yellow (Yellow) 10/21/18 22:15 Urine Clarity Clear 10/21/18 22:15 Urine pH 6.5 (5-8) 10/21/18 22:15 Ur Specific [place] <= 1.005 (1.005-1.025) 10/21/18 22:15 Urine Protein Negative mg/dL (Negative) 10/21/18 22:15 Urine Ketones Negative mg/dL (Negative) 10/21/18 22:15 Urine Blood Negative (Negative) 10/21/18 22:15 Urine Nitrite Negative (Negative) 10/21/18 22:15 Urine Bilirubin Negative (Negative) 10/21/18 22:15 Urine Urobilinogen 0.2 EU/dL (Up TO 0.2) 10/21/18 22:15 Ur Leukocyte Esterase Negative (Negative) 10/21/18 22:15 Urine RBC 0-2 (0-2) 10/21/18 11:42 Urine WBC 3-5 HPF (0-5) 10/21/18 11:42 Ur Epithelial Cells Many HPF (Negative) 10/21/18 11:42 Urine Crystals Negative HPF (Negative) 10/21/18 11:42 Urine Bacteria Moderate HPF (Negative) 10/21/18 11:42 Urine Casts Comment LPF (Negative) 10/21/18 11:42 Urine Mucus Moderate (Negative) 10/21/18 11:42 Ur Culture Indicated? No/sq. contamination 10/21/18 11:42 Urine Glucose Negative mg/dL (Negative) 10/21/18 22:15 C.difficile Tox Ab Neut Cancelled 10/06/18 15:46
--- NOTE | 2018-10-23 09:05 | PDOC.CMPRO ---
- If Service Date Differs Date of service: 10/23/18 Time of Service: 09:05 Care Management Progress Note S/O: Radha is sitting up in bed when this report writer visits this morning, her nurse Omaira is in the room and working on her wound vac. Radha states that she is waiting [place] hear about [place] [facility]. Radha states that her [facility] has not been in as of yet this morning, and that he may not be in if the roads are bad. CM to fax updates to [facility]. A: 48 y.o. female readmitted for facial dehiscence P: Return to her mother's home in [place] when medically cleared for discharge. She will have home health RN services through the [facility]. Family to transport.
[2018-10-23] MEDS: Normal Saline Flush 10 ML SYR 20 ML IVP ×2 (10:15→19:09)
[2018-10-23] MEDS: Ketorolac 30 MG/ML VIAL IVP ×2 (10:56→17:13)
[2018-10-23] MEDS: LORazepam 2 MG/ML VIAL IVP ×2 (12:13→21:40)
[2018-10-23] MEDS: Normal Saline 1,000 ML 100 ML IV ×2 (12:14→23:00)
--- NOTE | 2018-10-23 13:29 | W.PM.PROGNOT ---
Date of Service Date of service: 10/23/18 Time of Service: 13:29 Assessment and Plan (1) Fluid collection at surgical site: Current visit: Yes Status: Acute pt will go for drain at [facility] 10/24. hold lovenox for procedure. npo after 8am. can have water. restarted IVF at NS 100cc pt is off abx at this time. will see what type of fluid is pulled out and gram stain before restarting. wbc is nl and no fever. paperwork completed. (2) Open abdominal wall wound: Current visit: Yes Status: Acute wound vac is not holding a seel concern for developing fistula. will leave it off at this time and do wet/dry dressing changes BID Qualifiers: Encounter type: subsequent encounter Qualified Code(s): S31.109D - Unspecified open wound of abdominal wall, unspecified quadrant without penetration into peritoneal cavity, subsequent encounter (3) Protein deficiency: Current visit: Yes Status: Acute tpn is off b/c it is occluding PICC will see how pt does w/ orals this afternoon. if she can't seem to tolerate- than will resume tpn tonight at 5pm. cont coverage w/ insulin. oral protein supp as octavio. pt is at nutritional risk (4) Diarrhea: Current visit: Yes Status: Acute continues to have diarrhea/liquid bm. c diff from 10/22 is neg on probiotics and abx are off currently Subjective Patient reports: no new complaints, still having pain, diarrhea and afebrile Interval history since last seen: no fevers since last nigh. mult BM daily- no blood. C diff from 10/22 was neg. no productive cough. no breakdown. wound vac will not seal today despite mult changes. There was some increase in drainage from under ostomy site. fascia is intact. no calf pain or swelling. no dysuria. no other breakdown or sores. wound looks good otherwise. pt is not on abx. holding lovenox for procedure. PICC kept obstructing from TPN- will hold for know and see how much of a liquid diet she can tolerate. procedure had to be cancelled today and has been rescheduled for tomorrow. paperwork completed. Exam Const General: cooperative, comfortable and well developed Orientation: alert, awake and oriented x3 HENMT Mouth: oral mucosae normal, tongue normal and other (no thrush ) Teeth and gingiva: dentition normal Eyes General: appearance normal, both eyes and all related structures Sclera: sclerae normal Other: no pain/drainage/jaundice Chest Chest: normal inspection of the chest Resp Effort & Inspection: normal respiratory effort and able to speak in complete sentences Auscultation: clear to auscultation bilaterally Cardio Jugular venous pressure: no JVD Rate: regular rate Rhythm: regular rhythm GI Other: +bs. no distention. 95% granulation tissue. fascia is intact. still has pain over L side/near ostomy site Skin General skin exam: no rashes or lesions noted Other: no breakdown. skin around wound is c/d/i Extrem General: normal to inspection, full ROM and no clubbing, cyanosis or edema Other: no pain or swelling in LUarm. PICC site- no redness or pain Objective Objective Clinical Data: Vital Signs Temperature 36.8 C 10/23/18 07:25 Temperature Source Tympanic 10/23/18 07:25 Pulse 89 10/23/18 07:25 Pulse Rhythm Regular 10/23/18 00:15 Pulse 89 09/30/18 23:50 Respiratory Rate 18 10/23/18 07:25 Respiratory Effort Non-Labored 10/23/18 00:15 Respiratory Depth Normal 10/23/18 00:15 Respiratory Pattern Normal 10/23/18 00:15 Blood Pressure 118/76 10/23/18 07:25 Blood Pressure Mean 85 09/30/18 23:36 Pulse Oximetry 96 10/23/18 07:25 Oxygen Delivery Method Room Air 10/23/18 07:25 Oxygen Flow Rate 0 10/23/18 07:25 Pain Level 8 10/23/18 12:13 Comment 10/23/18 07:25 Intake & Output 10/22/18 10/23/18 10/23/18 23:59 11:59 23:59 Intake Total 1560.776 / 2611.776 177.090 / 177.090 Output Total 900 / 2150 1700 / 1700 Balance 660.776 / 461.776 -1522.910 / -1522.910 Weight 120 kg Intake: IV 1560.776 / 2611.776 177.090 / 177.090 Output: Urine 900 / 2150 1700 / 1700 Other: Urine Color Yellow Yellow Urine Appearance Clear Clear Urine Odor Normal Normal Voiding Methods Toilet Bedside Commode Laboratory Results WBC 5.48 k/cumm (4.4-10.8) 10/22/18 07:34 RBC 3.12 m/cumm (4.00-5.20) L 10/22/18 07:34 Hgb 9.0 g/dL (12.0-15.5) L 10/22/18 07:34 Hct 27.2 % (36.0-46.0) L 10/22/18 07:34 MCV 87.2 fL (80-95) 10/22/18 07:34 MCH 28.8 pg (27.0-33.0) 10/22/18 07:34 MCHC 33.1 g/dL (32.0-36.0) 10/22/18 07:34 RDW 13.1 % (11.7-14.6) 10/22/18 07:34 Plt Count 211 x1000/uL (130-400) 10/22/18 07:34 MPV 10.2 fL (8.0-11.0) 10/22/18 07:34 Immature Gran % 0.5 10/22/18 07:34 Neutrophils % 53.0 10/22/18 07:34 Lymphocytes % 25.4 10/22/18 07:34 Monocytes % 9.9 10/22/18 07:34 Eosinophils % 10.8 10/22/18 07:34 Basophils % 0.4 10/22/18 07:34 Absolute Neutrophils 2.91 k/cumm (1.2-6.7) 10/22/18 07:34 Absolute Lymphocytes 1.39 k/cumm (1.2-3.4) 10/22/18 07:34 Absolute Monocytes 0.54 k/cumm (0.11-0.7) 10/22/18 07:34 Absolute Eosinophils 0.59 k/cumm (0.0-0.7) 10/22/18 07:34 Absolute Basophils 0.02 k/cumm (0.0-0.2) 10/22/18 07:34 PT 10.3 sec (9.3-11.0) 10/22/18 15:07 INR 1.0 (0.9-1.1) 10/22/18 15:07 APTT 24.4 sec (21.0-31.4) 10/01/18 07:00 Sodium 134 mmol/L (136-145) L 10/21/18 06:26 Potassium 4.0 mmol/L (3.5-5.1) 10/21/18 06:26 Chloride 100 mmol/L (98-107) 10/21/18 06:26 Carbon Dioxide 24.6 mmol/L (21.0-32.0) 10/21/18 06:26 Anion Gap 9.4 mmol/L (3-11) 10/21/18 06:26 BUN 17 mg/dL (7-18) 10/21/18 06:26 Creatinine 0.74 mg/dL (0.55-1.02) 10/21/18 06:26 Estimated GFR/1.73 m2 >= 60.00 (mL/min/1.73m2) 10/21/18 06:26 Glucose 145 mg/dL (70-100) H 10/21/18 06:26 Lactate 1.1 mmol/l (0.6-1.4) 10/01/18 15:10 Calcium 8.4 mg/dL (8.5-10.1) L 10/21/18 06:26 Phosphorus 2.2 mg/dL (2.6-4.7) L 10/21/18 06:26 Magnesium 1.8 mg/dL (1.8-2.4) 10/22/18 07:34 Iron 39 ug/dL (50-175) L 10/18/18 07:50 TIBC 277 ug/dL (250-450) 10/18/18 07:50 Transferrin % Sat 14 % (15-50) L 10/18/18 07:50 Ferritin 389 ng/mL (8-388) H 10/18/18 07:50 Total Bilirubin 0.7 mg/dL (0.2-1.0) 10/20/18 07:00 AST 64 U/L (15-37) H 10/17/18 06:50 ALT 61 U/L (12-78) 10/20/18 07:00 Alkaline Phosphatase 121 U/L (46-116) H 10/20/18 07:00 Total Protein 7.1 g/dL (6.4-8.2) 10/17/18 06:50 Albumin 2.3 g/dL (3.4-5.0) L 10/20/18 07:00 Prealbumin 17 mg/dL (20-40) L 10/10/18 06:50 Urine Color Yellow (Yellow) 10/21/18 22:15 Urine Clarity Clear 10/21/18 22:15 Urine pH 6.5 (5-8) 10/21/18 22:15 Ur Specific [place] <= 1.005 (1.005-1.025) 10/21/18 22:15 Urine Protein Negative mg/dL (Negative) 10/21/18 22:15 Urine Ketones Negative mg/dL (Negative) 10/21/18 22:15 Urine Blood Negative (Negative) 10/21/18 22:15 Urine Nitrite Negative (Negative) 10/21/18 22:15 Urine Bilirubin Negative (Negative) 10/21/18 22:15 Urine Urobilinogen 0.2 EU/dL (Up TO 0.2) 10/21/18 22:15 Ur Leukocyte Esterase Negative (Negative) 10/21/18 22:15 Urine RBC 0-2 (0-2) 10/21/18 11:42 Urine WBC 3-5 HPF (0-5) 10/21/18 11:42 Ur Epithelial Cells Many HPF (Negative) 10/21/18 11:42 Urine Crystals Negative HPF (Negative) 10/21/18 11:42 Urine Bacteria Moderate HPF (Negative) 10/21/18 11:42 Urine Casts Comment LPF (Negative) 10/21/18 11:42 Urine Mucus Moderate (Negative) 10/21/18 11:42 Ur Culture Indicated? No/sq. contamination 10/21/18 11:42 Urine Glucose Negative mg/dL (Negative) 10/21/18 22:15 C.difficile Tox Ab Neut Cancelled 10/06/18 15:46
[2018-10-23 15:41] VITALS: BP 112/72; PULSE 96; RESP 18; TEMP 38; O2SAT 99
[2018-10-23] MEDS: Acetaminophen 325 MG TAB 650 MG PO ×2 (16:14→21:39)
[2018-10-23] MEDS: oxyCODONE 5 MG TAB PO ×2 (16:14→21:40)
[2018-10-23 19:43] VITALS: BP 100/67; PULSE 87; RESP 18; TEMP 37.7; O2SAT 99
[2018-10-24 00:27] VITALS: BP 117/78; PULSE 93; RESP 20; TEMP 37.2; O2SAT 100
[2018-10-24] MEDS: Ketorolac 30 MG/ML VIAL IVP ×3 (00:30→18:06)
[2018-10-24] MEDS: Normal Saline Flush 10 ML SYR IVP ×4 (00:30→22:30)
[2018-10-24] MEDS: HYDROmorphone 2 MG/ML VIAL IVP ×6 (00:31→22:30)
[2018-10-24] MEDS: oxyCODONE 5 MG TAB PO (03:27)
[2018-10-24 04:26] VITALS: BP 107/67; PULSE 91; RESP 16; TEMP 36.1; O2SAT 98
[2018-10-24] MEDS: Normal Saline Flush 10 ML SYR 20 ML IVP ×2 (08:00→19:19)
[2018-10-24 08:21] VITALS: BP 105/67; PULSE 83; RESP 14; TEMP 37.2; O2SAT 98
--- NOTE | 2018-10-24 08:46 | W.NUTRFU ---
Date of service: 10/24/18 Time of Service: 08:47 Nutritional Follow up NOTE: Ms. Parada is currently 69 and 119.5 kg. Her BMI is 39.9 kg/m2 consistent with class 2 obesity. Her adjusted ideal body weight is 95 kg. Given her current clinical situation she has increased need for nutrients, especially protein. Would recommend that she get at least 1.5g/kg/day of adjusted ideal body weight of protein. Would consider resuming TPN when she is able to until her PO intake is meeting 75% at least of her estimated energy and protein needs. 2400 kcal/day (25 kcal/kg/day adjusted ideal body weight) and 143 grams of protein per day (1.5g/kg/day adjusted ideal body weight). To that end, would recommend the following TPN regimen when she can resume: 3.0L/day of 5% amino acids and 15% dextrose to be run at 125 ml/hr. Would suggest only giving lipids three days per week on this regimen so as not give her too many calories but she will also meet her essential fatty acid needs. This regimen provides an average of 2300 calories per day and 150 grams of protein per day. Will continue to monitor her progress, her weight and any more advance of PO intake. Will evaluate her nutrition care plan ongoing and adjust as needed. Time Spent in Nutritional Counseling and Treatment: ROM
--- NOTE | 2018-10-24 11:42 | W.PM.PROGNOT ---
Date of Service Date of service: 10/24/18 Time of Service: 11:43 Assessment and Plan (1) Open abdominal wall wound: Current visit: Yes Status: Acute POD # 9 s/p ileosotmy reversal. Abdominal wounds - continue wound vac. Qualifiers: Encounter type: subsequent encounter Qualified Code(s): S31.109D - Unspecified open wound of abdominal wall, unspecified quadrant without penetration into peritoneal cavity, subsequent encounter (2) Fluid collection at surgical site: Current visit: Yes Status: Acute [place] [facility] [place] guided [place] of intraperitoneal fluid collection. Await results. (3) Diarrhea: Current visit: Yes Status: Acute C diff (-). Consider adding back Metamucil supplement to diet. ? probiotic. Subjective Interval history since last seen: Patient denies any new complaints. Still notes loose stools. C diff (-). Awaiting [place] [facility] [place] guided drainage of peritoneal fluid collection. Tmax 38 yesterday afternoon. Afebrile overnight. Exam Const General: cooperative and no acute distress Orientation: alert and oriented x3 HENMT Head: normocephalic and atraumatic Resp Effort & Inspection: normal respiratory effort and able to speak in complete sentences GI Inspection: non-distended and other (wound vac in place and functioning) Palpation: soft Skin General skin exam: no rashes or lesions noted Objective Objective Clinical Data: Vital Signs Temperature 37.2 C 10/24/18 08:21 Temperature Source Tympanic 10/24/18 08:21 Pulse 83 10/24/18 08:21 Pulse Rhythm Regular 10/24/18 09:27 Pulse 89 09/30/18 23:50 Respiratory Rate 14 10/24/18 08:21 Respiratory Effort Non-Labored 10/24/18 09:27 Respiratory Depth Normal 10/24/18 09:27 Respiratory Pattern Normal 10/24/18 09:27 Blood Pressure 105/67 10/24/18 08:21 Blood Pressure Mean 85 09/30/18 23:36 Pulse Oximetry 98 10/24/18 08:21 Oxygen Delivery Method Room Air 10/24/18 08:21 Oxygen Flow Rate 0 10/24/18 08:21 Pain Level 8 10/24/18 04:39 Comment 10/23/18 07:25 Intake & Output 10/23/18 10/23/18 10/24/18 11:59 23:59 11:59 Intake Total 177.090 / 3748.633 2848 / 1687.090 Output Total 1700 / 2200 500 / 2200 200 / 200 Balance -1522.910 / -991.967 1701 / -512.910 -180 / -180 Weight 120 kg 119.5 kg Intake: IV 177.090 / 1129.439 8866 / 1247.090 Oral 440 / 440 Output: Urine 1700 / 2100 400 / 2100 200 / 200 Stool 100 / 100 Other: Urine Color Yellow Yellow Yellow Urine Appearance Clear Clear Clear Urine Odor Normal None Normal Stool Size Moderate Stool Characteristics Liquid Voiding Methods Bedside Commode Toilet Bedside Commode Urinal Laboratory Results WBC 5.48 k/cumm (4.4-10.8) 10/22/18 07:34 RBC 3.12 m/cumm (4.00-5.20) L 10/22/18 07:34 Hgb 9.0 g/dL (12.0-15.5) L 10/22/18 07:34 Hct 27.2 % (36.0-46.0) L 10/22/18 07:34 MCV 87.2 fL (80-95) 10/22/18 07:34 MCH 28.8 pg (27.0-33.0) 10/22/18 07:34 MCHC 33.1 g/dL (32.0-36.0) 10/22/18 07:34 RDW 13.1 % (11.7-14.6) 10/22/18 07:34 Plt Count 211 x1000/uL (130-400) 10/22/18 07:34 MPV 10.2 fL (8.0-11.0) 10/22/18 07:34 Immature Gran % 0.5 10/22/18 07:34 Neutrophils % 53.0 10/22/18 07:34 Lymphocytes % 25.4 10/22/18 07:34 Monocytes % 9.9 10/22/18 07:34 Eosinophils % 10.8 10/22/18 07:34 Basophils % 0.4 10/22/18 07:34 Absolute Neutrophils 2.91 k/cumm (1.2-6.7) 10/22/18 07:34 Absolute Lymphocytes 1.39 k/cumm (1.2-3.4) 10/22/18 07:34 Absolute Monocytes 0.54 k/cumm (0.11-0.7) 10/22/18 07:34 Absolute Eosinophils 0.59 k/cumm (0.0-0.7) 10/22/18 07:34 Absolute Basophils 0.02 k/cumm (0.0-0.2) 10/22/18 07:34 PT 10.3 sec (9.3-11.0) 10/22/18 15:07 INR 1.0 (0.9-1.1) 10/22/18 15:07 APTT 24.4 sec (21.0-31.4) 10/01/18 07:00 Sodium 134 mmol/L (136-145) L 10/21/18 06:26 Potassium 4.0 mmol/L (3.5-5.1) 10/21/18 06:26 Chloride 100 mmol/L (98-107) 10/21/18 06:26 Carbon Dioxide 24.6 mmol/L (21.0-32.0) 10/21/18 06:26 Anion Gap 9.4 mmol/L (3-11) 10/21/18 06:26 BUN 17 mg/dL (7-18) 10/21/18 06:26 Creatinine 0.74 mg/dL (0.55-1.02) 10/21/18 06:26 Estimated GFR/1.73 m2 >= 60.00 (mL/min/1.73m2) 10/21/18 06:26 Glucose 145 mg/dL (70-100) H 10/21/18 06:26 Lactate 1.1 mmol/l (0.6-1.4) 10/01/18 15:10 Calcium 8.4 mg/dL (8.5-10.1) L 10/21/18 06:26 Phosphorus 2.2 mg/dL (2.6-4.7) L 10/21/18 06:26 Magnesium 1.8 mg/dL (1.8-2.4) 10/22/18 07:34 Iron 39 ug/dL (50-175) L 10/18/18 07:50 TIBC 277 ug/dL (250-450) 10/18/18 07:50 Transferrin % Sat 14 % (15-50) L 10/18/18 07:50 Ferritin 389 ng/mL (8-388) H 10/18/18 07:50 Total Bilirubin 0.7 mg/dL (0.2-1.0) 10/20/18 07:00 AST 64 U/L (15-37) H 10/17/18 06:50 ALT 61 U/L (12-78) 10/20/18 07:00 Alkaline Phosphatase 121 U/L (46-116) H 10/20/18 07:00 Total Protein 7.1 g/dL (6.4-8.2) 10/17/18 06:50 Albumin 2.3 g/dL (3.4-5.0) L 10/20/18 07:00 Prealbumin 17 mg/dL (20-40) L 10/10/18 06:50 Urine Color Yellow (Yellow) 10/21/18 22:15 Urine Clarity Clear 10/21/18 22:15 Urine pH 6.5 (5-8) 10/21/18 22:15 Ur Specific [place] <= 1.005 (1.005-1.025) 10/21/18 22:15 Urine Protein Negative mg/dL (Negative) 10/21/18 22:15 Urine Ketones Negative mg/dL (Negative) 10/21/18 22:15 Urine Blood Negative (Negative) 10/21/18 22:15 Urine Nitrite Negative (Negative) 10/21/18 22:15 Urine Bilirubin Negative (Negative) 10/21/18 22:15 Urine Urobilinogen 0.2 EU/dL (Up TO 0.2) 10/21/18 22:15 Ur Leukocyte Esterase Negative (Negative) 10/21/18 22:15 Urine RBC 0-2 (0-2) 10/21/18 11:42 Urine WBC 3-5 HPF (0-5) 10/21/18 11:42 Ur Epithelial Cells Many HPF (Negative) 10/21/18 11:42 Urine Crystals Negative HPF (Negative) 10/21/18 11:42 Urine Bacteria Moderate HPF (Negative) 10/21/18 11:42 Urine Casts Comment LPF (Negative) 10/21/18 11:42 Urine Mucus Moderate (Negative) 10/21/18 11:42 Ur Culture Indicated? No/sq. contamination 10/21/18 11:42 Urine Glucose Negative mg/dL (Negative) 10/21/18 22:15 C.difficile Tox Ab Neut Cancelled 10/06/18 15:46
--- NOTE | 2018-10-24 11:48 | PGE_ITS ---
Date of Service Date of service: 10/24/18 Time of Service: 11:43 Assessment and Plan (1) Open abdominal wall wound: Current visit: Yes Status: Acute POD # 9 s/p ileosotmy reversal. Abdominal wounds - continue wound vac. Qualifiers: Encounter type: subsequent encounter Qualified Code(s): S31.109D - Unspecified open wound of abdominal wall, unspecified quadrant without penetration into peritoneal cavity, subsequent encounter (2) Fluid collection at surgical site: Current visit: Yes Status: Acute Plans for transfer to [facility] today for image guided drainage of intraperitoneal fluid collection. Await results. (3) Diarrhea: Current visit: Yes Status: Acute C diff (-). Consider adding back Metamucil supplement to diet. ? probiotic. Subjective Interval history since last seen: Patient denies any new complaints. Still notes loose stools. C diff (-). Awaiting transfer to [facility] today for image guided drainage of peritoneal fluid collection. Tmax 38 yesterday afternoon. Afebrile overnight. Exam Const General: cooperative and no acute distress Orientation: alert and oriented x3 [facility] Head: normocephalic and atraumatic Resp Effort & Inspection: normal respiratory effort and able to speak in complete sentences GI Inspection: non-distended and other (wound vac in place and functioning) Palpation: soft Skin General skin exam: no rashes or lesions noted Objective Objective Clinical Data: Vital Signs Temperature 37.2 C 10/24/18 08:21 Temperature Source Tympanic 10/24/18 08:21 Pulse 83 10/24/18 08:21 Pulse Rhythm Regular 10/24/18 09:27 Pulse 89 09/30/18 23:50 Respiratory Rate 14 10/24/18 08:21 Respiratory Effort Non-Labored 10/24/18 09:27 Respiratory Depth Normal 10/24/18 09:27 Respiratory Pattern Normal 10/24/18 09:27 Blood Pressure 105/67 10/24/18 08:21 Blood Pressure Mean 85 09/30/18 23:36 Pulse Oximetry 98 10/24/18 08:21 Oxygen Delivery Method Room Air 10/24/18 08:21 Oxygen Flow Rate 0 10/24/18 08:21 Pain Level 8 10/24/18 04:39 Comment 10/23/18 07:25 Intake & Output 10/23/18 10/23/18 10/24/18 11:59 23:59 11:59 Intake Total 177.090 / 0904.432 4083 / 1687.090 Output Total 1700 / 2200 500 / 2200 200 / 200 Balance -1522.910 / -402.495 6052 / -512.910 -180 / -180 Weight 120 kg 119.5 kg Intake: IV 177.090 / 4444.911 0314 / 1247.090 Oral 440 / 440 Output: Urine 1700 / 2100 400 / 2100 200 / 200 Stool 100 / 100 Other: Urine Color Yellow Yellow Yellow Urine Appearance Clear Clear Clear Urine Odor Normal None Normal Stool Size Moderate Stool Characteristics Liquid Voiding Methods Bedside Commode Toilet Bedside Commode Urinal Laboratory Results WBC 5.48 k/cumm (4.4-10.8) 10/22/18 07:34 RBC 3.12 m/cumm (4.00-5.20) L 10/22/18 07:34 Hgb 9.0 g/dL (12.0-15.5) L 10/22/18 07:34 Hct 27.2 % (36.0-46.0) L 10/22/18 07:34 MCV 87.2 fL (80-95) 10/22/18 07:34 MCH 28.8 pg (27.0-33.0) 10/22/18 07:34 MCHC 33.1 g/dL (32.0-36.0) 10/22/18 07:34 RDW 13.1 % (11.7-14.6) 10/22/18 07:34 Plt Count 211 x1000/uL (130-400) 10/22/18 07:34 MPV 10.2 fL (8.0-11.0) 10/22/18 07:34 Immature Gran % 0.5 10/22/18 07:34 Neutrophils % 53.0 10/22/18 07:34 Lymphocytes % 25.4 10/22/18 07:34 Monocytes % 9.9 10/22/18 07:34 Eosinophils % 10.8 10/22/18 07:34 Basophils % 0.4 10/22/18 07:34 Absolute Neutrophils 2.91 k/cumm (1.2-6.7) 10/22/18 07:34 Absolute Lymphocytes 1.39 k/cumm (1.2-3.4) 10/22/18 07:34 Absolute Monocytes 0.54 k/cumm (0.11-0.7) 10/22/18 07:34 Absolute Eosinophils 0.59 k/cumm (0.0-0.7) 10/22/18 07:34 Absolute Basophils 0.02 k/cumm (0.0-0.2) 10/22/18 07:34 PT 10.3 sec (9.3-11.0) 10/22/18 15:07 INR 1.0 (0.9-1.1) 10/22/18 15:07 APTT 24.4 sec (21.0-31.4) 10/01/18 07:00 Sodium 134 mmol/L (136-145) L 10/21/18 06:26 Potassium 4.0 mmol/L (3.5-5.1) 10/21/18 06:26 Chloride 100 mmol/L (98-107) 10/21/18 06:26 Carbon Dioxide 24.6 mmol/L (21.0-32.0) 10/21/18 06:26 Anion Gap 9.4 mmol/L (3-11) 10/21/18 06:26 BUN 17 mg/dL (7-18) 10/21/18 06:26 Creatinine 0.74 mg/dL (0.55-1.02) 10/21/18 06:26 Estimated GFR/1.73 m2 >= 60.00 (mL/min/1.73m2) 10/21/18 06:26 Glucose 145 mg/dL (70-100) H 10/21/18 06:26 Lactate 1.1 mmol/l (0.6-1.4) 10/01/18 15:10 Calcium 8.4 mg/dL (8.5-10.1) L 10/21/18 06:26 Phosphorus 2.2 mg/dL (2.6-4.7) L 10/21/18 06:26 Magnesium 1.8 mg/dL (1.8-2.4) 10/22/18 07:34 Iron 39 ug/dL (50-175) L 10/18/18 07:50 TIBC 277 ug/dL (250-450) 10/18/18 07:50 Transferrin % Sat 14 % (15-50) L 10/18/18 07:50 Ferritin 389 ng/mL (8-388) H 10/18/18 07:50 Total Bilirubin 0.7 mg/dL (0.2-1.0) 10/20/18 07:00 AST 64 U/L (15-37) H 10/17/18 06:50 ALT 61 U/L (12-78) 10/20/18 07:00 Alkaline Phosphatase 121 U/L (46-116) H 10/20/18 07:00 Total Protein 7.1 g/dL (6.4-8.2) 10/17/18 06:50 Albumin 2.3 g/dL (3.4-5.0) L 10/20/18 07:00 Prealbumin 17 mg/dL (20-40) L 10/10/18 06:50 Urine Color Yellow (Yellow) 10/21/18 22:15 Urine Clarity Clear 10/21/18 22:15 Urine pH 6.5 (5-8) 10/21/18 22:15 Ur Specific [place] <= 1.005 (1.005-1.025) 10/21/18 22:15 Urine Protein Negative mg/dL (Negative) 10/21/18 22:15 Urine Ketones Negative mg/dL (Negative) 10/21/18 22:15 Urine Blood Negative (Negative) 10/21/18 22:15 Urine Nitrite Negative (Negative) 10/21/18 22:15 Urine Bilirubin Negative (Negative) 10/21/18 22:15 Urine Urobilinogen 0.2 EU/dL (Up TO 0.2) 10/21/18 22:15 Ur Leukocyte Esterase Negative (Negative) 10/21/18 22:15 Urine RBC 0-2 (0-2) 10/21/18 11:42 Urine WBC 3-5 HPF (0-5) 10/21/18 11:42 Ur Epithelial Cells Many HPF (Negative) 10/21/18 11:42 Urine Crystals Negative HPF (Negative) 10/21/18 11:42 Urine Bacteria Moderate HPF (Negative) 10/21/18 11:42 Urine Casts Comment LPF (Negative) 10/21/18 11:42 Urine Mucus Moderate (Negative) 10/21/18 11:42 Ur Culture Indicated? No/sq. contamination 10/21/18 11:42 Urine Glucose Negative mg/dL (Negative) 10/21/18 22:15 C.difficile Tox Ab Neut Cancelled 10/06/18 15:46
--- NOTE | 2018-10-24 14:46 | PDOC.CMPRO ---
- If Service Date Differs Date of service: 10/24/18 Time of Service: 14:46 Care Management Progress Note S/O: Radha is sitting up in her bed when this chief writer visits this morning, she is pleasant and receptive to discussion. Radha states that she will be going to [facility] today for an IR appointment for drain placement. Radha continues to have wound vac therapy at this time. No change in plan at this time. A: 48 y.o. female readmitted for facial dehiscence P: Return to her mother's home in [place] when medically cleared for discharge. She will have home health RN services through the [facility]. Family to transport.
--- NOTE | 2018-10-24 14:50 | CMPROGNOTE_ITS ---
- If Service Date Differs Date of service: 10/24/18 Time of Service: 14:46 Care Management Progress Note S/O: Radha is sitting up in her bed when this ad copy writer visits this morning, she is pleasant and receptive to discussion. Radha states that she will be going to [facility] today for an IR appointment for drain placement. Radha continues to have wound vac therapy at this time. No change in plan at this time. A: 48 y.o. female readmitted for facial dehiscence P: Return to her mother's home in [place] when medically cleared for discharge. She will have home health RN services through the [facility]. Family to transport.
[2018-10-24 18:00] VITALS: BP 136/84; PULSE 100; RESP 16; TEMP 37.2; O2SAT 98
[2018-10-24] MEDS: LORazepam 2 MG/ML VIAL IVP (18:06)
[2018-10-24] MEDS: Normal Saline 1,000 ML 100 ML IV (18:30)
[2018-10-24 19:56] VITALS: BP 127/87; PULSE 99; RESP 18; TEMP 36.8; O2SAT 97
[2018-10-25 00:32] VITALS: BP 134/78; PULSE 91; RESP 19; TEMP 37; O2SAT 99
[2018-10-25] MEDS: HYDROmorphone 2 MG/ML VIAL IVP ×8 (00:44→21:18)
[2018-10-25] MEDS: Normal Saline Flush 10 ML SYR IVP ×4 (00:45→15:54)
[2018-10-25] MEDS: Normal Saline 1,000 ML 100 ML IV ×2 (02:07→10:58)
[2018-10-25] MEDS: LORazepam 2 MG/ML VIAL IVP ×3 (04:11→21:17)
[2018-10-25 07:30] VITALS: BP 121/75; PULSE 90; RESP 18; TEMP 37.5; O2SAT 97
[2018-10-25] MEDS: Normal Saline Flush 10 ML SYR 20 ML IVP ×2 (09:30→21:21)
[2018-10-25] MEDS: Acetaminophen 325 MG TAB 650 MG PO ×2 (09:31→15:54)
[2018-10-25] MEDS: oxyCODONE 5 MG TAB PO (09:31)
--- NOTE | 2018-10-25 10:48 | PDOC.CMPRO ---
- If Service Date Differs Date of service: 10/25/18 Time of Service: 10:48 Care Management Progress Note S/O: Radha continues on TPN, she is on a full liquid diet. She did have the fluid collection drained yesterday at [facility]. She remains acute today and continues to have the wound vac in place through [facility]. She is receiving IV pain management. A: Radha is a 48 year old female admitted for wound dehiscence that underwent ileostomy reversal on10/15/18, she developed fluid collection at the surgical site and went to [facility] She will be discharged when medically ready to her Mothers home in [place]. She will have resumption of VNA services for nursing through [facility]. She will continue with wound vac at time of discharge. Family will transport at time of discharge. CM to continue to provide support to patient ongoing discharge planning and disposition.
--- NOTE | 2018-10-25 11:35 | CMPROGNOTE_ITS ---
- If Service Date Differs Date of service: 10/25/18 Time of Service: 10:48 Care Management Progress Note S/O: Radha continues on TPN, she is on a full liquid diet. She did have the fluid [place] [facility] She remains acute today and continues to have the wound vac in place through [facility]. She is receiving IV pain management. A: Radha is a 48 year old female admitted for wound dehiscence that underwent ileostomy reversal on10/15/18, she developed fluid collection at the surgical site and [place] [facility] She will be discharged when medically ready to her Mothers home in [place]. She will have resumption of VNA services for nursing through [facility]. She will continue with wound vac at time of discharge. Family will transport at time of discharge. CM to continue to provide support to patient ongoing discharge planning and disposition.
--- NOTE | 2018-10-25 12:00 | W.PM.PROGNOT ---
Date of Service Date of service: 10/25/18 Time of Service: 12:00 Assessment and Plan (1) Open abdominal wall wound: Current visit: Yes Status: Acute POD #10 s/p ileostomy reversal. Abdominal wounds - continue wound vac. Qualifiers: Encounter type: subsequent encounter Qualified Code(s): S31.109D - Unspecified open wound of abdominal wall, unspecified quadrant without penetration into peritoneal cavity, subsequent encounter (2) Fluid collection at surgical site: Current visit: Yes Status: Acute s/p aspiration of intraperitoneal fluid collection at [facility] on 10/24/18. Await culture results. Afebrile. Hold off on antibiotics. Follow-up CBC/lytes in am. (3) Diarrhea: Current visit: Yes Status: Acute C diff (-). Advanced diet as tolerated. Added Metamucil twice a day. Subjective Patient reports: no new complaints Interval history since last seen: Patient seen with at the bedside. Denies any new complaints. Pain controlled with oxycodone/ Toradol. Tolerating full liquids. Did not care for cream of wheat this am. No fever overnight. (+) BM - still loose. (+) flatus. I spoke with Dr. Garza (interventional radiologist at [facility]) last evening. Patient had 2 fluid collections in LLQ. One was close to the anastomosis and did not show up well on CT. This was not drained. A more medial collection was aspirated of 5 cc serosanguinous fluid. Fluid sent for gram stain and culture. Drain was placed then removed as the cavity was tiny and the drain did not maintain suction. Exam Const General: cooperative and no acute distress Orientation: alert and oriented x3 [facility] Head: normocephalic and atraumatic Resp Effort & Inspection: normal respiratory effort and able to speak in complete sentences GI Inspection: non-distended and other (wound vac dressing in place, aspiration site dressing in place) Palpation: soft, not firm, no guarding and nontender Skin General skin exam: no rashes or lesions noted and no jaundice Neuro General: alert and oriented x3 Speech: speech normal Objective Objective Clinical Data: Vital Signs Temperature 37.0 C 10/25/18 00:32 Temperature Source Tympanic 10/25/18 00:32 Pulse 91 H 10/25/18 00:32 Pulse Rhythm Regular 10/25/18 00:00 Pulse 89 09/30/18 23:50 Respiratory Rate 19 10/25/18 00:32 Respiratory Effort Non-Labored 10/25/18 00:00 Respiratory Depth Normal 10/25/18 00:00 Respiratory Pattern Normal 10/25/18 00:00 Blood Pressure 134/78 10/25/18 00:32 Blood Pressure Mean 85 09/30/18 23:36 Pulse Oximetry 99 10/25/18 00:32 Oxygen Delivery Method Room Air 10/25/18 00:32 Oxygen Flow Rate 0 10/25/18 00:32 Pain Level 9 10/25/18 10:58 Comment 10/23/18 07:25 Intake & Output 10/24/18 10/25/18 10/25/18 23:59 11:59 23:59 Intake Total 240 / 1260 2725 / 2725 Balance 240 / 1060 2725 / 2725 Weight 119.7 kg Intake: IV 1885 / 1885 Oral 240 / 240 840 / 840 Other: Urine Color Yellow Yellow Urine Appearance Clear Clear Urine Odor None Normal Voiding Methods Bedside Commode Bedside Commode Laboratory Results WBC 5.48 k/cumm (4.4-10.8) 10/22/18 07:34 RBC 3.12 m/cumm (4.00-5.20) L 10/22/18 07:34 Hgb 9.0 g/dL (12.0-15.5) L 10/22/18 07:34 Hct 27.2 % (36.0-46.0) L 10/22/18 07:34 MCV 87.2 fL (80-95) 10/22/18 07:34 MCH 28.8 pg (27.0-33.0) 10/22/18 07:34 MCHC 33.1 g/dL (32.0-36.0) 10/22/18 07:34 RDW 13.1 % (11.7-14.6) 10/22/18 07:34 Plt Count 211 x1000/uL (130-400) 10/22/18 07:34 MPV 10.2 fL (8.0-11.0) 10/22/18 07:34 Immature Gran % 0.5 10/22/18 07:34 Neutrophils % 53.0 10/22/18 07:34 Lymphocytes % 25.4 10/22/18 07:34 Monocytes % 9.9 10/22/18 07:34 Eosinophils % 10.8 10/22/18 07:34 Basophils % 0.4 10/22/18 07:34 Absolute Neutrophils 2.91 k/cumm (1.2-6.7) 10/22/18 07:34 Absolute Lymphocytes 1.39 k/cumm (1.2-3.4) 10/22/18 07:34 Absolute Monocytes 0.54 k/cumm (0.11-0.7) 10/22/18 07:34 Absolute Eosinophils 0.59 k/cumm (0.0-0.7) 10/22/18 07:34 Absolute Basophils 0.02 k/cumm (0.0-0.2) 10/22/18 07:34 PT 10.3 sec (9.3-11.0) 10/22/18 15:07 INR 1.0 (0.9-1.1) 10/22/18 15:07 APTT 24.4 sec (21.0-31.4) 10/01/18 07:00 Sodium 134 mmol/L (136-145) L 10/21/18 06:26 Potassium 4.0 mmol/L (3.5-5.1) 10/21/18 06:26 Chloride 100 mmol/L (98-107) 10/21/18 06:26 Carbon Dioxide 24.6 mmol/L (21.0-32.0) 10/21/18 06:26 Anion Gap 9.4 mmol/L (3-11) 10/21/18 06:26 BUN 17 mg/dL (7-18) 10/21/18 06:26 Creatinine 0.74 mg/dL (0.55-1.02) 10/21/18 06:26 Estimated GFR/1.73 m2 >= 60.00 (mL/min/1.73m2) 10/21/18 06:26 Glucose 145 mg/dL (70-100) H 10/21/18 06:26 Lactate 1.1 mmol/l (0.6-1.4) 10/01/18 15:10 Calcium 8.4 mg/dL (8.5-10.1) L 10/21/18 06:26 Phosphorus 2.2 mg/dL (2.6-4.7) L 10/21/18 06:26 Magnesium 1.8 mg/dL (1.8-2.4) 10/22/18 07:34 Iron 39 ug/dL (50-175) L 10/18/18 07:50 TIBC 277 ug/dL (250-450) 10/18/18 07:50 Transferrin % Sat 14 % (15-50) L 10/18/18 07:50 Ferritin 389 ng/mL (8-388) H 10/18/18 07:50 Total Bilirubin 0.7 mg/dL (0.2-1.0) 10/20/18 07:00 AST 64 U/L (15-37) H 10/17/18 06:50 ALT 61 U/L (12-78) 10/20/18 07:00 Alkaline Phosphatase 121 U/L (46-116) H 10/20/18 07:00 Total Protein 7.1 g/dL (6.4-8.2) 10/17/18 06:50 Albumin 2.3 g/dL (3.4-5.0) L 10/20/18 07:00 Prealbumin 17 mg/dL (20-40) L 10/10/18 06:50 Urine Color Yellow (Yellow) 10/21/18 22:15 Urine Clarity Clear 10/21/18 22:15 Urine pH 6.5 (5-8) 10/21/18 22:15 Ur Specific [place] <= 1.005 (1.005-1.025) 10/21/18 22:15 Urine Protein Negative mg/dL (Negative) 10/21/18 22:15 Urine Ketones Negative mg/dL (Negative) 10/21/18 22:15 Urine Blood Negative (Negative) 10/21/18 22:15 Urine Nitrite Negative (Negative) 10/21/18 22:15 Urine Bilirubin Negative (Negative) 10/21/18 22:15 Urine Urobilinogen 0.2 EU/dL (Up TO 0.2) 10/21/18 22:15 Ur Leukocyte Esterase Negative (Negative) 10/21/18 22:15 Urine RBC 0-2 (0-2) 10/21/18 11:42 Urine WBC 3-5 HPF (0-5) 10/21/18 11:42 Ur Epithelial Cells Many HPF (Negative) 10/21/18 11:42 Urine Crystals Negative HPF (Negative) 10/21/18 11:42 Urine Bacteria Moderate HPF (Negative) 10/21/18 11:42 Urine Casts Comment LPF (Negative) 10/21/18 11:42 Urine Mucus Moderate (Negative) 10/21/18 11:42 Ur Culture Indicated? No/sq. contamination 10/21/18 11:42 Urine Glucose Negative mg/dL (Negative) 10/21/18 22:15 C.difficile Tox Ab Neut Cancelled 10/06/18 15:46
--- NOTE | 2018-10-25 12:04 | PGE_ITS ---
Date of Service Date of service: 10/25/18 Time of Service: 12:00 Assessment and Plan (1) Open abdominal wall wound: Current visit: Yes Status: Acute POD #10 s/p ileostomy reversal. Abdominal wounds - continue wound vac. Qualifiers: Encounter type: subsequent encounter Qualified Code(s): S31.109D - Unspecified open wound of abdominal wall, unspecified quadrant without penetration into peritoneal cavity, subsequent encounter (2) Fluid collection at surgical site: Current visit: Yes Status: Acute s/p aspiration of intraperitoneal fluid collection at [facility] on 10/24/18. Await culture results. Afebrile. Hold off on antibiotics. Follow-up CBC/lytes in am. (3) Diarrhea: Current visit: Yes Status: Acute C diff (-). Advanced diet as tolerated. Added Metamucil twice a day. Subjective Patient reports: no new complaints Interval history since last seen: Patient seen with at the bedside. Denies any new complaints. Pain controlled with oxycodone/ Toradol. Tolerating full liquids. Did not care for cream of wheat this am. No fever overnight. (+) BM - still loose. (+) flatus. I spoke with Dr. Garza (interventional radiologist at [facility]) last evening. Patient had 2 fluid collections in LLQ. One was close to the anastomosis and did not show up well on CT. This was not drained. A more medial collection was aspirated of 5 cc serosanguinous fluid. Fluid sent for gram stain and culture. Drain was placed then removed as the cavity was tiny and the drain did not maintain suction. Exam Const General: cooperative and no acute distress Orientation: alert and oriented x3 [facility] Head: normocephalic and atraumatic Resp Effort & Inspection: normal respiratory effort and able to speak in complete sentences GI Inspection: non-distended and other (wound vac dressing in place, aspiration site dressing in place) Palpation: soft, not firm, no guarding and nontender Skin General skin exam: no rashes or lesions noted and no jaundice Neuro General: alert and oriented x3 Speech: speech normal Objective Objective Clinical Data: Vital Signs Temperature 37.0 C 10/25/18 00:32 Temperature Source Tympanic 10/25/18 00:32 Pulse 91 H 10/25/18 00:32 Pulse Rhythm Regular 10/25/18 00:00 Pulse 89 09/30/18 23:50 Respiratory Rate 19 10/25/18 00:32 Respiratory Effort Non-Labored 10/25/18 00:00 Respiratory Depth Normal 10/25/18 00:00 Respiratory Pattern Normal 10/25/18 00:00 Blood Pressure 134/78 10/25/18 00:32 Blood Pressure Mean 85 09/30/18 23:36 Pulse Oximetry 99 10/25/18 00:32 Oxygen Delivery Method Room Air 10/25/18 00:32 Oxygen Flow Rate 0 10/25/18 00:32 Pain Level 9 10/25/18 10:58 Comment 10/23/18 07:25 Intake & Output 10/24/18 10/25/18 10/25/18 23:59 11:59 23:59 Intake Total 240 / 1260 2725 / 2725 Balance 240 / 1060 2725 / 2725 Weight 119.7 kg Intake: IV 1885 / 1885 Oral 240 / 240 840 / 840 Other: Urine Color Yellow Yellow Urine Appearance Clear Clear Urine Odor None Normal Voiding Methods Bedside Commode Bedside Commode Laboratory Results WBC 5.48 k/cumm (4.4-10.8) 10/22/18 07:34 RBC 3.12 m/cumm (4.00-5.20) L 10/22/18 07:34 Hgb 9.0 g/dL (12.0-15.5) L 10/22/18 07:34 Hct 27.2 % (36.0-46.0) L 10/22/18 07:34 MCV 87.2 fL (80-95) 10/22/18 07:34 MCH 28.8 pg (27.0-33.0) 10/22/18 07:34 MCHC 33.1 g/dL (32.0-36.0) 10/22/18 07:34 RDW 13.1 % (11.7-14.6) 10/22/18 07:34 Plt Count 211 x1000/uL (130-400) 10/22/18 07:34 MPV 10.2 fL (8.0-11.0) 10/22/18 07:34 Immature Gran % 0.5 10/22/18 07:34 Neutrophils % 53.0 10/22/18 07:34 Lymphocytes % 25.4 10/22/18 07:34 Monocytes % 9.9 10/22/18 07:34 Eosinophils % 10.8 10/22/18 07:34 Basophils % 0.4 10/22/18 07:34 Absolute Neutrophils 2.91 k/cumm (1.2-6.7) 10/22/18 07:34 Absolute Lymphocytes 1.39 k/cumm (1.2-3.4) 10/22/18 07:34 Absolute Monocytes 0.54 k/cumm (0.11-0.7) 10/22/18 07:34 Absolute Eosinophils 0.59 k/cumm (0.0-0.7) 10/22/18 07:34 Absolute Basophils 0.02 k/cumm (0.0-0.2) 10/22/18 07:34 PT 10.3 sec (9.3-11.0) 10/22/18 15:07 INR 1.0 (0.9-1.1) 10/22/18 15:07 APTT 24.4 sec (21.0-31.4) 10/01/18 07:00 Sodium 134 mmol/L (136-145) L 10/21/18 06:26 Potassium 4.0 mmol/L (3.5-5.1) 10/21/18 06:26 Chloride 100 mmol/L (98-107) 10/21/18 06:26 Carbon Dioxide 24.6 mmol/L (21.0-32.0) 10/21/18 06:26 Anion Gap 9.4 mmol/L (3-11) 10/21/18 06:26 BUN 17 mg/dL (7-18) 10/21/18 06:26 Creatinine 0.74 mg/dL (0.55-1.02) 10/21/18 06:26 Estimated GFR/1.73 m2 >= 60.00 (mL/min/1.73m2) 10/21/18 06:26 Glucose 145 mg/dL (70-100) H 10/21/18 06:26 Lactate 1.1 mmol/l (0.6-1.4) 10/01/18 15:10 Calcium 8.4 mg/dL (8.5-10.1) L 10/21/18 06:26 Phosphorus 2.2 mg/dL (2.6-4.7) L 10/21/18 06:26 Magnesium 1.8 mg/dL (1.8-2.4) 10/22/18 07:34 Iron 39 ug/dL (50-175) L 10/18/18 07:50 TIBC 277 ug/dL (250-450) 10/18/18 07:50 Transferrin % Sat 14 % (15-50) L 10/18/18 07:50 Ferritin 389 ng/mL (8-388) H 10/18/18 07:50 Total Bilirubin 0.7 mg/dL (0.2-1.0) 10/20/18 07:00 AST 64 U/L (15-37) H 10/17/18 06:50 ALT 61 U/L (12-78) 10/20/18 07:00 Alkaline Phosphatase 121 U/L (46-116) H 10/20/18 07:00 Total Protein 7.1 g/dL (6.4-8.2) 10/17/18 06:50 Albumin 2.3 g/dL (3.4-5.0) L 10/20/18 07:00 Prealbumin 17 mg/dL (20-40) L 10/10/18 06:50 Urine Color Yellow (Yellow) 10/21/18 22:15 Urine Clarity Clear 10/21/18 22:15 Urine pH 6.5 (5-8) 10/21/18 22:15 Ur Specific [place] <= 1.005 (1.005-1.025) 10/21/18 22:15 Urine Protein Negative mg/dL (Negative) 10/21/18 22:15 Urine Ketones Negative mg/dL (Negative) 10/21/18 22:15 Urine Blood Negative (Negative) 10/21/18 22:15 Urine Nitrite Negative (Negative) 10/21/18 22:15 Urine Bilirubin Negative (Negative) 10/21/18 22:15 Urine Urobilinogen 0.2 EU/dL (Up TO 0.2) 10/21/18 22:15 Ur Leukocyte Esterase Negative (Negative) 10/21/18 22:15 Urine RBC 0-2 (0-2) 10/21/18 11:42 Urine WBC 3-5 HPF (0-5) 10/21/18 11:42 Ur Epithelial Cells Many HPF (Negative) 10/21/18 11:42 Urine Crystals Negative HPF (Negative) 10/21/18 11:42 Urine Bacteria Moderate HPF (Negative) 10/21/18 11:42 Urine Casts Comment LPF (Negative) 10/21/18 11:42 Urine Mucus Moderate (Negative) 10/21/18 11:42 Ur Culture Indicated? No/sq. contamination 10/21/18 11:42 Urine Glucose Negative mg/dL (Negative) 10/21/18 22:15 C.difficile Tox Ab Neut Cancelled 10/06/18 15:46
[2018-10-25 16:00] VITALS: BP 126/80; PULSE 95; RESP 22; TEMP 37.6; O2SAT 99
[2018-10-25] MEDS: Ketorolac 30 MG/ML VIAL IVP (18:43)
[2018-10-25 21:01] VITALS: BP 127/88; PULSE 92; RESP 18; TEMP 36.8; O2SAT 98
[2018-10-25] MEDS: Psyllium PKT 1 EACH PO (21:21)
[2018-10-26] VITALS (8 sets, daily range): BP systolic 117–143; BP diastolic 60–91; PULSE 68–98; RESP 16–20; TEMP 36.3–37.4; O2SAT 94–100
[2018-10-26] MEDS: HYDROmorphone 2 MG/ML VIAL IVP ×8 (00:11→23:18)
[2018-10-26] MEDS: Normal Saline Flush 10 ML SYR IVP ×9 (00:12→18:14)
[2018-10-26] MEDS: Ketorolac 30 MG/ML VIAL IVP ×4 (01:03→20:03)
[2018-10-26] MEDS: Normal Saline 1,000 ML 100 ML IV ×2 (01:14→08:05)
[2018-10-26] MEDS: LORazepam 2 MG/ML VIAL IVP ×3 (04:27→22:03)
[2018-10-26] MEDS: oxyCODONE 5 MG TAB PO ×3 (07:28→22:04)
[2018-10-26] MEDS: Normal Saline Flush 10 ML SYR 20 ML IVP ×2 (07:36→20:02)
[2018-10-26] MEDS: Psyllium PKT 1 EACH PO ×2 (07:38→20:04)
[2018-10-26 07:43] LABS: Absolute Neutrophil Count 1.98 k/cumm (1.2-6.7); HCT 26.1 % (36.0-46.0); HGB 8.5 g/dL (12.0-15.5); Mean Corp. HGB Concentration 32.6 g/dL (32.0-36.0); Mean Corpuscular Hemoglobin 28.7 pg (27.0-33.0); Mean Corpuscular Volume 88.2 fL (80-95); Mean Platelet Volume 9.5 fL (8.0-11.0); Neutrophils % 50.6; Platelet Count 229 x1000/uL (130-400); RBC 2.96 m/cumm (4.00-5.20); RBC Distribution Width 12.9 % (11.7-14.6); White Blood Cell Count 3.91 k/cumm (4.4-10.8)
[2018-10-26 07:44] LABS: Absolute Basophil Count 0.01 k/cumm (0.0-0.2); Absolute Eosinophil Count 0.29 k/cumm (0.0-0.7); Absolute Lymphocyte Count 1.25 k/cumm (1.2-3.4); Absolute Monocyte Count 0.36 k/cumm (0.11-0.7); Basophils % 0.3; Eosinophils % 7.4; Immature Grans % 0.5; Monocytes % 9.2
[2018-10-26 07:45] LABS: Abs Immature Grans 0.02 k/cumm (0.0-0.09)
[2018-10-26 07:50] LABS: ALT 29 U/L (12-78); AST 23 U/L (15-37); Alkaline Phosphatase 84 U/L (46-116); Anion Gap 8.3 mmol/L (3-11); BUN 7 mg/dL (7-18); Bilirubin, Total 0.6 mg/dL (0.2-1.0); CO2 25.7 mmol/L (21.0-32.0); CREATININE 0.55 mg/dL (0.55-1.02); Calcium 7.4 mg/dL (8.5-10.1); Chloride 109 mmol/L (98-107); Glucose 96 mg/dL (70-100); Potassium 3.5 mmol/L (3.5-5.1); Sodium 143 mmol/L (136-145); Total Protein 6.4 g/dL (6.4-8.2)
--- NOTE | 2018-10-26 09:36 | CMPROGNOTE_ITS ---
- If Service Date Differs Date of service: 10/26/18 Time of Service: 09:36 Care Management Progress Note S/O: Radha is up ambulating in the halls, she continues with TPN. She maintains a wound VAC, which which she will return home with. No other change in status today A: Radha is a 48 year old female admitted for wound dehiscence that underwent ileostomy reversal on10/15/18, she developed fluid collection at the surgical site and went to [facility] She will be discharged when medically ready to her Mothers home in [place]. She will have resumption of VNA services for nursing through [facility]. She will continue with wound vac at time of discharge. Family will transport at time of discharge. CM to continue to provide support to patient ongoing discharge planning and disposition.
--- NOTE | 2018-10-26 10:00 | W.PM.PROGNOT ---
Date of Service Date of service: 10/26/18 Time of Service: 10:00 Assessment and Plan (1) Open abdominal wall wound: Current visit: Yes Status: Acute POD #11 s/p ileostomy reversal. Abdominal wounds - continue wound vac. Qualifiers: Encounter type: subsequent encounter Qualified Code(s): S31.109D - Unspecified open wound of abdominal wall, unspecified quadrant without penetration into peritoneal cavity, subsequent encounter (2) Fluid collection at surgical site: Current visit: Yes Status: Acute s/p aspiration of intraperitoneal fluid collection at [facility] on 10/24/18 (~5cc serosanguinous). Await culture results. Fever improving. Hold off on antibiotics. Follow-up CBC/lytes in am. (3) Diarrhea: Current visit: Yes Status: Acute C diff (-). Advanced diet as tolerated. Added Metamucil twice a day. (4) Malnutrition: Current visit: No Status: Acute Poor po intake. Protein deficient. Will resume TPN in addition to po diet as tolerated. Qualifiers: Malnutrition type: protein-calorie malnutrition Protein-calorie malnutrition severity: mild Qualified Code(s): E44.1 - Mild protein-calorie malnutrition Subjective Interval history since last seen: Diet advanced yesterday. Patient notes poor appetite and bloating when she eats. Still having loose BMs/ (+) flatus. Tmax 37.6 yesterday afternoon. Labs noted. Nutrition consult noted. Exam Const General: cooperative and no acute distress Orientation: alert and oriented x3 Eyes Sclera: sclerae normal Resp Effort & Inspection: normal respiratory effort and able to speak in complete sentences GI Inspection: non-distended and other (wound vac dressing in place; fluid aspiration site - dry/clean) Palpation: soft, not firm, no guarding, not rigid and nontender Auscultation: normal bowel sounds Skin General skin exam: no rashes or lesions noted and no jaundice Objective Objective Clinical Data: Abnormal lab results 10/26/18 10/26/18 Range/Units 06:50 06:50 WBC 3.91 L (4.4-10.8) k/cumm RBC 2.96 L (4.00-5.20) m/cumm Hgb 8.5 L (12.0-15.5) g/dL Hct 26.1 L (36.0-46.0) % Chloride 109 H (98-107) mmol/L Calcium 7.4 L (8.5-10.1) mg/dL Albumin 2.0 L (3.4-5.0) g/dL Vital Signs Temperature 36.6 C 10/26/18 07:39 Temperature Source Tympanic 10/26/18 07:39 Pulse 90 10/26/18 07:39 Pulse Rhythm Regular 10/26/18 07:35 Pulse 89 09/30/18 23:50 Respiratory Rate 169 H 10/26/18 07:39 Respiratory Effort Non-Labored 10/26/18 07:35 Respiratory Depth Normal 10/26/18 07:35 Respiratory Pattern Normal 10/26/18 07:35 Blood Pressure 136/76 10/26/18 07:39 Blood Pressure Mean 85 09/30/18 23:36 Pulse Oximetry 97 10/26/18 07:39 Oxygen Delivery Method Room Air 10/26/18 07:39 Oxygen Flow Rate 0 10/26/18 07:39 Pain Level 8 10/26/18 08:55 Comment 10/23/18 07:25 Intake & Output 10/25/18 10/25/18 10/26/18 11:59 23:59 11:59 Intake Total 2725 / 3525 800 / 3525 2210 / 2210 Output Total 1200 / 2400 1200 / 2400 300 / 300 Balance 1525 / 1125 -400 / 1125 1910 / 1910 Weight 119.7 kg 119.9 kg Intake: IV 1885 / 2685 800 / 2685 1970 / 1970 Oral 840 / 840 240 / 240 Output: Urine 1200 / 2400 1200 / 2400 300 / 300 Other: Urine Color Yellow Yellow Yellow Urine Appearance Clear Clear Clear Urine Odor Normal Normal None Comment from many voids uop x 3 Stool Size Moderate Small Stool Characteristics Soft Soft Voiding Methods Bedside Commode Toilet Toilet Laboratory Results WBC 3.91 k/cumm (4.4-10.8) L 10/26/18 06:50 RBC 2.96 m/cumm (4.00-5.20) L 10/26/18 06:50 Hgb 8.5 g/dL (12.0-15.5) L 10/26/18 06:50 Hct 26.1 % (36.0-46.0) L 10/26/18 06:50 MCV 88.2 fL (80-95) 10/26/18 06:50 MCH 28.7 pg (27.0-33.0) 10/26/18 06:50 MCHC 32.6 g/dL (32.0-36.0) 10/26/18 06:50 RDW 12.9 % (11.7-14.6) 10/26/18 06:50 Plt Count 229 x1000/uL (130-400) 10/26/18 06:50 MPV 9.5 fL (8.0-11.0) 10/26/18 06:50 Immature Gran % 0.5 10/26/18 06:50 Neutrophils % 50.6 10/26/18 06:50 Lymphocytes % 32.0 10/26/18 06:50 Monocytes % 9.2 10/26/18 06:50 Eosinophils % 7.4 10/26/18 06:50 Basophils % 0.3 10/26/18 06:50 Absolute Neutrophils 1.98 k/cumm (1.2-6.7) 10/26/18 06:50 Absolute Lymphocytes 1.25 k/cumm (1.2-3.4) 10/26/18 06:50 Absolute Monocytes 0.36 k/cumm (0.11-0.7) 10/26/18 06:50 Absolute Eosinophils 0.29 k/cumm (0.0-0.7) 10/26/18 06:50 Absolute Basophils 0.01 k/cumm (0.0-0.2) 10/26/18 06:50 PT 10.3 sec (9.3-11.0) 10/22/18 15:07 INR 1.0 (0.9-1.1) 10/22/18 15:07 APTT 24.4 sec (21.0-31.4) 10/01/18 07:00 Sodium 143 mmol/L (136-145) 10/26/18 06:50 Potassium 3.5 mmol/L (3.5-5.1) 10/26/18 06:50 Chloride 109 mmol/L (98-107) H 10/26/18 06:50 Carbon Dioxide 25.7 mmol/L (21.0-32.0) 10/26/18 06:50 Anion Gap 8.3 mmol/L (3-11) 10/26/18 06:50 BUN 7 mg/dL (7-18) 10/26/18 06:50 Creatinine 0.55 mg/dL (0.55-1.02) 10/26/18 06:50 Estimated GFR/1.73 m2 >= 60.00 (mL/min/1.73m2) 10/26/18 06:50 Glucose 96 mg/dL (70-100) 10/26/18 06:50 Lactate 1.1 mmol/l (0.6-1.4) 10/01/18 15:10 Calcium 7.4 mg/dL (8.5-10.1) L 10/26/18 06:50 Phosphorus 2.2 mg/dL (2.6-4.7) L 10/21/18 06:26 Magnesium 1.8 mg/dL (1.8-2.4) 10/22/18 07:34 Iron 39 ug/dL (50-175) L 10/18/18 07:50 TIBC 277 ug/dL (250-450) 10/18/18 07:50 Transferrin % Sat 14 % (15-50) L 10/18/18 07:50 Ferritin 389 ng/mL (8-388) H 10/18/18 07:50 Total Bilirubin 0.6 mg/dL (0.2-1.0) 10/26/18 06:50 AST 23 U/L (15-37) 10/26/18 06:50 ALT 29 U/L (12-78) 10/26/18 06:50 Alkaline Phosphatase 84 U/L (46-116) 10/26/18 06:50 Total Protein 6.4 g/dL (6.4-8.2) 10/26/18 06:50 Albumin 2.0 g/dL (3.4-5.0) L 10/26/18 06:50 Prealbumin 17 mg/dL (20-40) L 10/10/18 06:50 Urine Color Yellow (Yellow) 10/21/18 22:15 Urine Clarity Clear 10/21/18 22:15 Urine pH 6.5 (5-8) 10/21/18 22:15 Ur Specific [place] <= 1.005 (1.005-1.025) 10/21/18 22:15 Urine Protein Negative mg/dL (Negative) 10/21/18 22:15 Urine Ketones Negative mg/dL (Negative) 10/21/18 22:15 Urine Blood Negative (Negative) 10/21/18 22:15 Urine Nitrite Negative (Negative) 10/21/18 22:15 Urine Bilirubin Negative (Negative) 10/21/18 22:15 Urine Urobilinogen 0.2 EU/dL (Up TO 0.2) 10/21/18 22:15 Ur Leukocyte Esterase Negative (Negative) 10/21/18 22:15 Urine RBC 0-2 (0-2) 10/21/18 11:42 Urine WBC 3-5 HPF (0-5) 10/21/18 11:42 Ur Epithelial Cells Many HPF (Negative) 10/21/18 11:42 Urine Crystals Negative HPF (Negative) 10/21/18 11:42 Urine Bacteria Moderate HPF (Negative) 10/21/18 11:42 Urine Casts Comment LPF (Negative) 10/21/18 11:42 Urine Mucus Moderate (Negative) 10/21/18 11:42 Ur Culture Indicated? No/sq. contamination 10/21/18 11:42 Urine Glucose Negative mg/dL (Negative) 10/21/18 22:15 C.difficile Tox Ab Neut Cancelled 10/06/18 15:46
[2018-10-26] MEDS: Acetaminophen 325 MG TAB 650 MG PO ×2 (17:14→23:18)
[2018-10-26] MEDS: Melatonin 3 MG TAB PO (22:04)
[2018-10-27] MEDS: Normal Saline Flush 10 ML SYR IVP ×7 (01:33→21:38)
[2018-10-27] MEDS: HYDROmorphone 2 MG/ML VIAL IVP ×8 (01:33→23:31)
[2018-10-27] MEDS: Ketorolac 30 MG/ML VIAL IVP ×4 (04:04→23:36)
[2018-10-27 05:07] VITALS: BP 149/91; PULSE 90; RESP 18; TEMP 36.9; O2SAT 98
[2018-10-27] MEDS: Acetaminophen 325 MG TAB 650 MG PO ×3 (05:22→17:34)
[2018-10-27] MEDS: oxyCODONE 5 MG TAB PO ×2 (05:23→11:44)
[2018-10-27 07:27] LABS: Abs Immature Grans 0.04 k/cumm (0.0-0.09); Absolute Basophil Count 0.01 k/cumm (0.0-0.2); Absolute Eosinophil Count 0.52 k/cumm (0.0-0.7); Absolute Lymphocyte Count 1.48 k/cumm (1.2-3.4); Absolute Neutrophil Count 2.45 k/cumm (1.2-6.7); Basophils % 0.2; Eosinophils % 10.6; HCT 27.5 % (36.0-46.0); Immature Grans % 0.8; Lymphocytes % 30.2; Mean Corp. HGB Concentration 32.7 g/dL (32.0-36.0); Mean Corpuscular Hemoglobin 28.6 pg (27.0-33.0); Mean Corpuscular Volume 87.3 fL (80-95); Mean Platelet Volume 9.3 fL (8.0-11.0); Monocytes % 8.2; Platelet Count 256 x1000/uL (130-400); RBC 3.15 m/cumm (4.00-5.20); RBC Distribution Width 12.8 % (11.7-14.6)
--- NOTE | 2018-10-27 07:34 | W.PM.PROGNOT ---
Date of Service Date of service: 10/27/18 Time of Service: 07:20 Assessment and Plan (1) Diarrhea: Current visit: Yes Status: Acute Metamucil added to her diet yesterday to try and help. C.Diff negative last week Qualifiers: Diarrhea type: unspecified type Qualified Code(s): R19.7 - Diarrhea, unspecified (2) Protein deficiency: Current visit: Yes Status: Acute Dioscussed nutrition with patient. She needs to start pushing the food so we can wean off the TPN. Patient understands. Will get her some glucerna BID as a snack in between meals. Subjective Interval history since last seen: Radha is doing well. No more fevers. Fluid collections drained-serosanguinous. Tolerating a regular diet but not eating much. She liked the Glucerna and has not gotten any since her diet was advanced to regular. Exam Resp Effort & Inspection: normal respiratory effort Auscultation: clear to auscultation bilaterally Cardio Rate: regular rate Rhythm: regular rhythm GI Inspection: incision (wound vac in place) Palpation: soft and nontender Auscultation: normal bowel sounds Objective Objective Clinical Data: Abnormal lab results 10/26/18 10/26/18 Range/Units 06:50 06:50 WBC 3.91 L (4.4-10.8) k/cumm RBC 2.96 L (4.00-5.20) m/cumm Hgb 8.5 L (12.0-15.5) g/dL Hct 26.1 L (36.0-46.0) % Chloride 109 H (98-107) mmol/L Calcium 7.4 L (8.5-10.1) mg/dL Albumin 2.0 L (3.4-5.0) g/dL Vital Signs Temperature 98.4 F 10/27/18 05:07 Temperature Source Tympanic 10/27/18 05:07 Pulse 90 10/27/18 05:07 Pulse Rhythm Regular 10/27/18 02:56 Pulse 89 09/30/18 23:50 Respiratory Rate 18 10/27/18 05:07 Respiratory Effort Non-Labored 10/27/18 02:56 Respiratory Depth Normal 10/27/18 02:56 Respiratory Pattern Normal 10/27/18 02:56 Blood Pressure 149/91 H 10/27/18 05:07 Blood Pressure Mean 85 09/30/18 23:36 Pulse Oximetry 98 10/27/18 05:07 Oxygen Delivery Method Room Air 10/27/18 05:07 Oxygen Flow Rate 0 10/27/18 05:07 Pain Level 7 10/27/18 06:44 Comment 10/23/18 07:25 Intake & Output 10/26/18 10/26/18 10/27/18 11:59 23:59 11:59 Intake Total 2650 / 2890 240 / 2890 1401 / 1401 Output Total 300 / 2100 1800 / 2100 Balance 2350 / 790 -1560 / 790 1401 / 1401 Weight 264 lb 5.348 oz 269 lb 10.005 oz Intake: IV 2170 / 2170 0 / 2170 1281 / 1281 Oral 480 / 720 240 / 720 120 / 120 Output: Urine 300 / 2100 1800 / 2100 Other: Urine Color Yellow Straw Light Sharmaine Urine Appearance Clear Clear Clear Urine Odor None None Comment uop x 3 uop x 1 UOP x 1 reported Stool Size Small Moderate Stool Characteristics Soft Soft Formed Voiding Methods Toilet Toilet Toilet Bedside Commode Laboratory Results WBC 3.91 k/cumm (4.4-10.8) L 10/26/18 06:50 RBC 2.96 m/cumm (4.00-5.20) L 10/26/18 06:50 Hgb 8.5 g/dL (12.0-15.5) L 10/26/18 06:50 Hct 26.1 % (36.0-46.0) L 10/26/18 06:50 MCV 88.2 fL (80-95) 10/26/18 06:50 MCH 28.7 pg (27.0-33.0) 10/26/18 06:50 MCHC 32.6 g/dL (32.0-36.0) 10/26/18 06:50 RDW 12.9 % (11.7-14.6) 10/26/18 06:50 Plt Count 229 x1000/uL (130-400) 10/26/18 06:50 MPV 9.5 fL (8.0-11.0) 10/26/18 06:50 Immature Gran % 0.5 10/26/18 06:50 Neutrophils % 50.6 10/26/18 06:50 Lymphocytes % 32.0 10/26/18 06:50 Monocytes % 9.2 10/26/18 06:50 Eosinophils % 7.4 10/26/18 06:50 Basophils % 0.3 10/26/18 06:50 Absolute Neutrophils 1.98 k/cumm (1.2-6.7) 10/26/18 06:50 Absolute Lymphocytes 1.25 k/cumm (1.2-3.4) 10/26/18 06:50 Absolute Monocytes 0.36 k/cumm (0.11-0.7) 10/26/18 06:50 Absolute Eosinophils 0.29 k/cumm (0.0-0.7) 10/26/18 06:50 Absolute Basophils 0.01 k/cumm (0.0-0.2) 10/26/18 06:50 PT 10.3 sec (9.3-11.0) 10/22/18 15:07 INR 1.0 (0.9-1.1) 10/22/18 15:07 APTT 24.4 sec (21.0-31.4) 10/01/18 07:00 Sodium 143 mmol/L (136-145) 10/26/18 06:50 Potassium 3.5 mmol/L (3.5-5.1) 10/26/18 06:50 Chloride 109 mmol/L (98-107) H 10/26/18 06:50 Carbon Dioxide 25.7 mmol/L (21.0-32.0) 10/26/18 06:50 Anion Gap 8.3 mmol/L (3-11) 10/26/18 06:50 BUN 7 mg/dL (7-18) 10/26/18 06:50 Creatinine 0.55 mg/dL (0.55-1.02) 10/26/18 06:50 Estimated GFR/1.73 m2 >= 60.00 (mL/min/1.73m2) 10/26/18 06:50 Glucose 96 mg/dL (70-100) 10/26/18 06:50 Lactate 1.1 mmol/l (0.6-1.4) 10/01/18 15:10 Calcium 7.4 mg/dL (8.5-10.1) L 10/26/18 06:50 Phosphorus 2.2 mg/dL (2.6-4.7) L 10/21/18 06:26 Magnesium 1.8 mg/dL (1.8-2.4) 10/22/18 07:34 Iron 39 ug/dL (50-175) L 10/18/18 07:50 TIBC 277 ug/dL (250-450) 10/18/18 07:50 Transferrin % Sat 14 % (15-50) L 10/18/18 07:50 Ferritin 389 ng/mL (8-388) H 10/18/18 07:50 Total Bilirubin 0.6 mg/dL (0.2-1.0) 10/26/18 06:50 AST 23 U/L (15-37) 10/26/18 06:50 ALT 29 U/L (12-78) 10/26/18 06:50 Alkaline Phosphatase 84 U/L (46-116) 10/26/18 06:50 Total Protein 6.4 g/dL (6.4-8.2) 10/26/18 06:50 Albumin 2.0 g/dL (3.4-5.0) L 10/26/18 06:50 Prealbumin 17 mg/dL (20-40) L 10/10/18 06:50 Urine Color Yellow (Yellow) 10/21/18 22:15 Urine Clarity Clear 10/21/18 22:15 Urine pH 6.5 (5-8) 10/21/18 22:15 Ur Specific [place] <= 1.005 (1.005-1.025) 10/21/18 22:15 Urine Protein Negative mg/dL (Negative) 10/21/18 22:15 Urine Ketones Negative mg/dL (Negative) 10/21/18 22:15 Urine Blood Negative (Negative) 10/21/18 22:15 Urine Nitrite Negative (Negative) 10/21/18 22:15 Urine Bilirubin Negative (Negative) 10/21/18 22:15 Urine Urobilinogen 0.2 EU/dL (Up TO 0.2) 10/21/18 22:15 Ur Leukocyte Esterase Negative (Negative) 10/21/18 22:15 Urine RBC 0-2 (0-2) 10/21/18 11:42 Urine WBC 3-5 HPF (0-5) 10/21/18 11:42 Ur Epithelial Cells Many HPF (Negative) 10/21/18 11:42 Urine Crystals Negative HPF (Negative) 10/21/18 11:42 Urine Bacteria Moderate HPF (Negative) 10/21/18 11:42 Urine Casts Comment LPF (Negative) 10/21/18 11:42 Urine Mucus Moderate (Negative) 10/21/18 11:42 Ur Culture Indicated? No/sq. contamination 10/21/18 11:42 Urine Glucose Negative mg/dL (Negative) 10/21/18 22:15 C.difficile Tox Ab Neut Cancelled 10/06/18 15:46
[2018-10-27] MEDS: Normal Saline Flush 10 ML SYR 20 ML IVP ×2 (07:38→18:40)
[2018-10-27 07:40] VITALS: BP 131/86; PULSE 88; RESP 18; TEMP 36.7; O2SAT 99
[2018-10-27 07:45] LABS: ALT 28 U/L (12-78); AST 22 U/L (15-37); Albumin 2.3 g/dL (3.4-5.0); Alkaline Phosphatase 85 U/L (46-116); Anion Gap 11.7 mmol/L (3-11); BUN 8 mg/dL (7-18); Bilirubin, Total 0.5 mg/dL (0.2-1.0); CO2 25.3 mmol/L (21.0-32.0); CREATININE 0.67 mg/dL (0.55-1.02); Calcium 8.2 mg/dL (8.5-10.1); Chloride 106 mmol/L (98-107); Glucose 118 mg/dL (70-100); Potassium 3.3 mmol/L (3.5-5.1); Sodium 143 mmol/L (136-145); Total Protein 7.2 g/dL (6.4-8.2)
[2018-10-27 11:36] VITALS: BP 136/82; PULSE 74; RESP 18; TEMP 37.1; O2SAT 97
--- NOTE | 2018-10-27 12:11 | PDOC.CMPRO ---
- If Service Date Differs Date of service: 10/27/18 Time of Service: 12:11 Care Management Progress Note S/O: Radha is sitting up in her chair in her room when this sports writer visits this morning, she is pleasant and receptive to discussion. Radha states that she is doing alright, and that she is awaiting notification from [facility] in regards to her hospital indemnity. Radha has been restarted on the TPN and continues to receive wound vac therapy at this time. A: Radha is a 48 year old female admitted for wound dehiscence that underwent ileostomy reversal on10/15/18, she developed fluid collection at the surgical site and went to [facility] P: She will be discharged when medically ready to her Mothers home in [place]. She will have resumption of VNA services for nursing through [facility]. She will continue with wound vac at time of discharge. Family will transport at time of discharge. CM to continue to provide support to patient ongoing discharge planning and disposition.
--- NOTE | 2018-10-27 12:25 | CMPROGNOTE_ITS ---
- If Service Date Differs Date of service: 10/27/18 Time of Service: 12:11 Care Management Progress Note S/O: Radha is sitting up in her chair in her room when this telegraphic typewriter repairer visits this morning, she is pleasant and receptive to discussion. Radha states that she is doing alright, and that she is awaiting notification from [facility] in regards to her hospital indemnity. Radha has been restarted on the TPN and continues to receive wound vac therapy at this time. A: Radha is a 48 year old female admitted for wound dehiscence that underwent ileostomy reversal on10/15/18, she developed fluid collection at the surgical site and went to [facility] P: She will be discharged when medically ready to her Mothers home in [place]. She will have resumption of VNA services for nursing through [facility]. She will continue with wound vac at time of discharge. Family will transport at time of discharge. CM to continue to provide support to patient ongoing discharge planning and disposition.
--- NOTE | 2018-10-27 15:03 | W.PM.PROGNOT ---
Date of Service Date of service: 10/27/18 Time of Service: 15:03 Assessment and Plan (1) Open abdominal wall wound: Current visit: Yes Status: Acute Doing well. Starting to eat more. If able to tolerate dinner and breakfast tomorrow and she is getting close to her calory intake then will stop TPN tomorrow. Plan for D/C on . Will order Wound vac for home Qualifiers: Encounter type: subsequent encounter Qualified Code(s): S31.109D - Unspecified open wound of abdominal wall, unspecified quadrant without penetration into peritoneal cavity, subsequent encounter Subjective Interval history since last seen: Doing well. Tolerated a grilled cheese sandwhich and some tomatoe soup. No N/V. BM's are more formed with the metamucil. Got abut 450 calories and 12 GM of protein. Feeling well otherwise Exam GI Palpation: soft and nontender Auscultation: normal bowel sounds Objective Objective Clinical Data: Abnormal lab results 10/27/18 10/27/18 Range/Units 06:20 06:20 RBC 3.15 L (4.00-5.20) m/cumm Hgb 9.0 L (12.0-15.5) g/dL Hct 27.5 L (36.0-46.0) % Potassium 3.3 L (3.5-5.1) mmol/L Anion Gap 11.7 H (3-11) mmol/L Glucose 118 H (70-100) mg/dL Calcium 8.2 L (8.5-10.1) mg/dL Albumin 2.3 L (3.4-5.0) g/dL Vital Signs Temperature 98.8 F 10/27/18 11:36 Temperature Source Tympanic 10/27/18 11:36 Pulse 74 10/27/18 11:36 Pulse Rhythm Regular 10/27/18 08:00 Pulse 89 09/30/18 23:50 Respiratory Rate 18 10/27/18 11:36 Respiratory Effort 10/27/18 08:00 Respiratory Depth Normal 10/27/18 08:00 Respiratory Pattern Normal 10/27/18 08:00 Blood Pressure 136/82 10/27/18 11:36 Blood Pressure Mean 85 09/30/18 23:36 Pulse Oximetry 97 10/27/18 11:36 Oxygen Delivery Method Room Air 10/27/18 11:36 Oxygen Flow Rate 0 10/27/18 11:36 Pain Level 9 10/27/18 11:36 Comment 10/23/18 07:25 Intake & Output 10/26/18 10/27/18 10/27/18 23:59 11:59 23:59 Intake Total 240 / 2890 1421 / 1421 Output Total 1800 / 2100 Balance -1560 / 790 1421 / 1421 Weight 269 lb 10.005 oz Intake: IV 0 / 2170 1301 / 1301 Oral 240 / 720 120 / 120 Output: Urine 1800 / 2100 Other: Urine Color Straw Light Sharmaine Urine Appearance Clear Clear Urine Odor None Comment uop x 1 UOP x 1 reported Stool Size Moderate Stool Characteristics Soft Soft Formed Voiding Methods Toilet Toilet Bedside Commode Laboratory Results WBC 4.90 k/cumm (4.4-10.8) 10/27/18 06:20 RBC 3.15 m/cumm (4.00-5.20) L 10/27/18 06:20 Hgb 9.0 g/dL (12.0-15.5) L 10/27/18 06:20 Hct 27.5 % (36.0-46.0) L 10/27/18 06:20 MCV 87.3 fL (80-95) 10/27/18 06:20 MCH 28.6 pg (27.0-33.0) 10/27/18 06:20 MCHC 32.7 g/dL (32.0-36.0) 10/27/18 06:20 RDW 12.8 % (11.7-14.6) 10/27/18 06:20 Plt Count 256 x1000/uL (130-400) 10/27/18 06:20 MPV 9.3 fL (8.0-11.0) 10/27/18 06:20 Immature Gran % 0.8 10/27/18 06:20 Neutrophils % 50.0 10/27/18 06:20 Lymphocytes % 30.2 10/27/18 06:20 Monocytes % 8.2 10/27/18 06:20 Eosinophils % 10.6 10/27/18 06:20 Basophils % 0.2 10/27/18 06:20 Absolute Neutrophils 2.45 k/cumm (1.2-6.7) 10/27/18 06:20 Absolute Lymphocytes 1.48 k/cumm (1.2-3.4) 10/27/18 06:20 Absolute Monocytes 0.40 k/cumm (0.11-0.7) 10/27/18 06:20 Absolute Eosinophils 0.52 k/cumm (0.0-0.7) 10/27/18 06:20 Absolute Basophils 0.01 k/cumm (0.0-0.2) 10/27/18 06:20 PT 10.3 sec (9.3-11.0) 10/22/18 15:07 INR 1.0 (0.9-1.1) 10/22/18 15:07 APTT 24.4 sec (21.0-31.4) 10/01/18 07:00 Sodium 143 mmol/L (136-145) 10/27/18 06:20 Potassium 3.3 mmol/L (3.5-5.1) L 10/27/18 06:20 Chloride 106 mmol/L (98-107) 10/27/18 06:20 Carbon Dioxide 25.3 mmol/L (21.0-32.0) 10/27/18 06:20 Anion Gap 11.7 mmol/L (3-11) H 10/27/18 06:20 BUN 8 mg/dL (7-18) 10/27/18 06:20 Creatinine 0.67 mg/dL (0.55-1.02) 10/27/18 06:20 Estimated GFR/1.73 m2 >= 60.00 (mL/min/1.73m2) 10/27/18 06:20 Glucose 118 mg/dL (70-100) H 10/27/18 06:20 Lactate 1.1 mmol/l (0.6-1.4) 10/01/18 15:10 Calcium 8.2 mg/dL (8.5-10.1) L 10/27/18 06:20 Phosphorus 2.2 mg/dL (2.6-4.7) L 10/21/18 06:26 Magnesium 1.8 mg/dL (1.8-2.4) 10/22/18 07:34 Iron 39 ug/dL (50-175) L 10/18/18 07:50 TIBC 277 ug/dL (250-450) 10/18/18 07:50 Transferrin % Sat 14 % (15-50) L 10/18/18 07:50 Ferritin 389 ng/mL (8-388) H 10/18/18 07:50 Total Bilirubin 0.5 mg/dL (0.2-1.0) 10/27/18 06:20 AST 22 U/L (15-37) 10/27/18 06:20 ALT 28 U/L (12-78) 10/27/18 06:20 Alkaline Phosphatase 85 U/L (46-116) 10/27/18 06:20 Total Protein 7.2 g/dL (6.4-8.2) 10/27/18 06:20 Albumin 2.3 g/dL (3.4-5.0) L 10/27/18 06:20 Prealbumin 17 mg/dL (20-40) L 10/10/18 06:50 Urine Color Yellow (Yellow) 10/21/18 22:15 Urine Clarity Clear 10/21/18 22:15 Urine pH 6.5 (5-8) 10/21/18 22:15 Ur Specific [place] <= 1.005 (1.005-1.025) 10/21/18 22:15 Urine Protein Negative mg/dL (Negative) 10/21/18 22:15 Urine Ketones Negative mg/dL (Negative) 10/21/18 22:15 Urine Blood Negative (Negative) 10/21/18 22:15 Urine Nitrite Negative (Negative) 10/21/18 22:15 Urine Bilirubin Negative (Negative) 10/21/18 22:15 Urine Urobilinogen 0.2 EU/dL (Up TO 0.2) 10/21/18 22:15 Ur Leukocyte Esterase Negative (Negative) 10/21/18 22:15 Urine RBC 0-2 (0-2) 10/21/18 11:42 Urine WBC 3-5 HPF (0-5) 10/21/18 11:42 Ur Epithelial Cells Many HPF (Negative) 10/21/18 11:42 Urine Crystals Negative HPF (Negative) 10/21/18 11:42 Urine Bacteria Moderate HPF (Negative) 10/21/18 11:42 Urine Casts Comment LPF (Negative) 10/21/18 11:42 Urine Mucus Moderate (Negative) 10/21/18 11:42 Ur Culture Indicated? No/sq. contamination 10/21/18 11:42 Urine Glucose Negative mg/dL (Negative) 10/21/18 22:15 C.difficile Tox Ab Neut Cancelled 10/06/18 15:46
[2018-10-27 15:59] VITALS: BP 142/84; PULSE 94; RESP 18; TEMP 36.7; O2SAT 97
[2018-10-27] MEDS: oxyCODONE 5 MG TAB 7.5 MG PO (17:39)
[2018-10-27] MEDS: Psyllium PKT 1 EACH PO (19:50)
[2018-10-27] MEDS: LORazepam 2 MG/ML VIAL IVP (20:37)
[2018-10-28 00:01] VITALS: BP 142/87; PULSE 89; RESP 17; TEMP 36.8; O2SAT 98
[2018-10-28] MEDS: LORazepam 2 MG/ML VIAL IVP ×2 (01:13→07:38)
[2018-10-28] MEDS: Normal Saline Flush 10 ML SYR IVP ×6 (01:14→16:05)
[2018-10-28] MEDS: HYDROmorphone 2 MG/ML VIAL IVP ×3 (05:53→11:37)
[2018-10-28] MEDS: Insulin Aspart 300 UNITS/3 ML PEN SC (06:35)
--- NOTE | 2018-10-28 07:26 | CMPROGNOTE_ITS ---
- If Service Date Differs Date of service: 10/28/18 Time of Service: 07:26 Care Management Progress Note S/O: Radha is ambulating in the halls today. CM contacted [facility] and spoke with Kenyatta to alert of potential DC for , they are aware of wound vac need at time of DC through [facility]. No change in plan at this time. A: Radha is a 48 year old female admitted for wound dehiscence that underwent ileostomy reversal on10/15/18, she developed fluid collection at the surgical site and went to [facility] P: She will be discharged when medically ready to her Mothers home in [place]. She will have resumption of VNA services for nursing through [facility]. She will continue with wound vac at time of discharge. Family will transport at time of discharge. CM to continue to provide support to patient ongoing discharge planning and disposition.
[2018-10-28 07:35] VITALS: BP 137/86; PULSE 95; RESP 18; TEMP 37.7; O2SAT 99
[2018-10-28] MEDS: Psyllium PKT 1 EACH PO ×2 (07:36→19:31)
[2018-10-28] MEDS: oxyCODONE 5 MG TAB 7.5 MG PO ×2 (07:37→18:40)
[2018-10-28] MEDS: Normal Saline Flush 10 ML SYR 20 ML IVP ×2 (07:39→19:32)
[2018-10-28] MEDS: Ketorolac 30 MG/ML VIAL IVP (07:40)
--- NOTE | 2018-10-28 10:32 | W.PM.PROGNOT ---
Date of Service Date of service: 10/28/18 Time of Service: 10:33 Assessment and Plan (1) Yeast dermatitis: Current visit: Yes Status: Acute start IV diflucan add either nystatin cream or powder (nursing pref) w/ next VAC change (2) Diarrhea: Current visit: Yes Status: Acute probiotics and metamucil Qualifiers: Diarrhea type: unspecified type Qualified Code(s): R19.7 - Diarrhea, unspecified (3) Protein deficiency: Current visit: Yes Status: Acute protein shakes wean TPN follow glucose (4) Open abdominal wall wound: Current visit: Yes Status: Acute cont VAC at home. papers signed plan is for pt to dc home w/ mother on . ( pt concerned b/c weather is suppose to be bad- certainly can be delayed until Saturday if expecting snow storm) Qualifiers: Encounter type: subsequent encounter Qualified Code(s): S31.109D - Unspecified open wound of abdominal wall, unspecified quadrant without penetration into peritoneal cavity, subsequent encounter (5) Anemia of chronic disorder: Current visit: Yes Status: Acute iron replacement last week Subjective Patient reports: no new complaints, tolerating a regular diet, bowel movement and afebrile; denies voiding w/o difficulty, blood in stool, nausea, vomiting and fever Interval history since last seen: still loose. 4-5 a day. no blood. thinks they are firming up w/ the Metamucil. she has developed a new rash around VAC/under the tegaderm. very purutic. probably yeast no fever/chills. no N/V. no calf pain or swelling. no cough. no fevers. no drains. Exam Const General: healthy appearing Orientation: alert, awake and oriented x3 HENMT Head: normal to inspection Eyes General: appearance normal, both eyes and all related structures Chest Chest: normal inspection of the chest Resp Effort & Inspection: normal respiratory effort Cardio Jugular venous pressure: no JVD Rate: regular rate Rhythm: regular rhythm GI Palpation: soft Auscultation: normal bowel sounds Other: rash- red macular around the foam/under the tegaderm, primarily around the old ostomy site Abdomen image: 1. 2. 3. Skin Rashes: rashes noted Other: under tegaderm around ostomy site. yest vs contact. will treat for yeast Extrem General: normal to inspection and no clubbing, cyanosis or edema Objective Objective Clinical Data: Vital Signs Temperature 37.7 C H 10/28/18 07:35 Temperature Source Tympanic 10/28/18 07:35 Pulse 95 H 10/28/18 07:35 Pulse Rhythm Regular 10/28/18 08:00 Pulse 89 09/30/18 23:50 Respiratory Rate 18 10/28/18 07:35 Respiratory Effort 10/28/18 08:00 Respiratory Depth Normal 10/28/18 08:00 Respiratory Pattern Normal 10/28/18 08:00 Blood Pressure 137/86 10/28/18 07:35 Blood Pressure Mean 85 09/30/18 23:36 Pulse Oximetry 99 10/28/18 07:35 Oxygen Delivery Method Room Air 10/28/18 07:35 Oxygen Flow Rate 0 10/28/18 07:35 Pain Level 7 10/28/18 07:35 Comment 10/23/18 07:25 Intake & Output 10/27/18 10/27/18 10/28/18 11:59 23:59 11:59 Intake Total 1421 / 2591 1170 / 2591 230 / 230 Output Total 300 / 300 3750 / 3750 Balance 1421 / 2291 870 / 2291 -3520 / -3520 Weight 122.3 kg 122.6 kg Intake: IV 1301 / 2351 1050 / 2351 50 / 50 Oral 120 / 240 120 / 240 180 / 180 Output: Urine 300 / 300 3750 / 3750 Other: Urine Color Straw Straw Light Sharmaine Urine Appearance Clear Clear Clear Urine Odor None Normal Comment UOP x 1 reported Total of 2 voids Stool Size Moderate Stool Characteristics Soft Soft Voiding Methods Toilet Toilet Toilet Laboratory Results WBC 4.90 k/cumm (4.4-10.8) 10/27/18 06:20 RBC 3.15 m/cumm (4.00-5.20) L 10/27/18 06:20 Hgb 9.0 g/dL (12.0-15.5) L 10/27/18 06:20 Hct 27.5 % (36.0-46.0) L 10/27/18 06:20 MCV 87.3 fL (80-95) 10/27/18 06:20 MCH 28.6 pg (27.0-33.0) 10/27/18 06:20 MCHC 32.7 g/dL (32.0-36.0) 10/27/18 06:20 RDW 12.8 % (11.7-14.6) 10/27/18 06:20 Plt Count 256 x1000/uL (130-400) 10/27/18 06:20 MPV 9.3 fL (8.0-11.0) 10/27/18 06:20 Immature Gran % 0.8 10/27/18 06:20 Neutrophils % 50.0 10/27/18 06:20 Lymphocytes % 30.2 10/27/18 06:20 Monocytes % 8.2 10/27/18 06:20 Eosinophils % 10.6 10/27/18 06:20 Basophils % 0.2 10/27/18 06:20 Absolute Neutrophils 2.45 k/cumm (1.2-6.7) 10/27/18 06:20 Absolute Lymphocytes 1.48 k/cumm (1.2-3.4) 10/27/18 06:20 Absolute Monocytes 0.40 k/cumm (0.11-0.7) 10/27/18 06:20 Absolute Eosinophils 0.52 k/cumm (0.0-0.7) 10/27/18 06:20 Absolute Basophils 0.01 k/cumm (0.0-0.2) 10/27/18 06:20 PT 10.3 sec (9.3-11.0) 10/22/18 15:07 INR 1.0 (0.9-1.1) 10/22/18 15:07 APTT 24.4 sec (21.0-31.4) 10/01/18 07:00 Sodium 143 mmol/L (136-145) 10/27/18 06:20 Potassium 3.3 mmol/L (3.5-5.1) L 10/27/18 06:20 Chloride 106 mmol/L (98-107) 10/27/18 06:20 Carbon Dioxide 25.3 mmol/L (21.0-32.0) 10/27/18 06:20 Anion Gap 11.7 mmol/L (3-11) H 10/27/18 06:20 BUN 8 mg/dL (7-18) 10/27/18 06:20 Creatinine 0.67 mg/dL (0.55-1.02) 10/27/18 06:20 Estimated GFR/1.73 m2 >= 60.00 (mL/min/1.73m2) 10/27/18 06:20 Glucose 118 mg/dL (70-100) H 10/27/18 06:20 Lactate 1.1 mmol/l (0.6-1.4) 10/01/18 15:10 Calcium 8.2 mg/dL (8.5-10.1) L 10/27/18 06:20 Phosphorus 2.2 mg/dL (2.6-4.7) L 10/21/18 06:26 Magnesium 1.8 mg/dL (1.8-2.4) 10/22/18 07:34 Iron 39 ug/dL (50-175) L 10/18/18 07:50 TIBC 277 ug/dL (250-450) 10/18/18 07:50 Transferrin % Sat 14 % (15-50) L 10/18/18 07:50 Ferritin 389 ng/mL (8-388) H 10/18/18 07:50 Total Bilirubin 0.5 mg/dL (0.2-1.0) 10/27/18 06:20 AST 22 U/L (15-37) 10/27/18 06:20 ALT 28 U/L (12-78) 10/27/18 06:20 Alkaline Phosphatase 85 U/L (46-116) 10/27/18 06:20 Total Protein 7.2 g/dL (6.4-8.2) 10/27/18 06:20 Albumin 2.3 g/dL (3.4-5.0) L 10/27/18 06:20 Prealbumin 17 mg/dL (20-40) L 10/10/18 06:50 Urine Color Yellow (Yellow) 10/21/18 22:15 Urine Clarity Clear 10/21/18 22:15 Urine pH 6.5 (5-8) 10/21/18 22:15 Ur Specific [place] <= 1.005 (1.005-1.025) 10/21/18 22:15 Urine Protein Negative mg/dL (Negative) 10/21/18 22:15 Urine Ketones Negative mg/dL (Negative) 10/21/18 22:15 Urine Blood Negative (Negative) 10/21/18 22:15 Urine Nitrite Negative (Negative) 10/21/18 22:15 Urine Bilirubin Negative (Negative) 10/21/18 22:15 Urine Urobilinogen 0.2 EU/dL (Up TO 0.2) 10/21/18 22:15 Ur Leukocyte Esterase Negative (Negative) 10/21/18 22:15 Urine RBC 0-2 (0-2) 10/21/18 11:42 Urine WBC 3-5 HPF (0-5) 10/21/18 11:42 Ur Epithelial Cells Many HPF (Negative) 10/21/18 11:42 Urine Crystals Negative HPF (Negative) 10/21/18 11:42 Urine Bacteria Moderate HPF (Negative) 10/21/18 11:42 Urine Casts Comment LPF (Negative) 10/21/18 11:42 Urine Mucus Moderate (Negative) 10/21/18 11:42 Ur Culture Indicated? No/sq. contamination 10/21/18 11:42 Urine Glucose Negative mg/dL (Negative) 10/21/18 22:15 C.difficile Tox Ab Neut Cancelled 10/06/18 15:46
[2018-10-28 10:54] LABS: Prealbumin 12 mg/dL (20-40)
[2018-10-28 11:45] VITALS: BP 131/87; PULSE 91; RESP 18; TEMP 37.1; O2SAT 98
[2018-10-28] MEDS: LORazepam 1 MG TAB PO ×3 (13:15→19:32)
[2018-10-28] MEDS: HYDROmorphone 2 MG TAB PO ×2 (15:12→19:32)
[2018-10-28 15:40] VITALS: BP 136/82; PULSE 90; RESP 20; TEMP 37; O2SAT 98
[2018-10-28] MEDS: diphenhydrAMINE 25 MG CAP PO (16:30)
[2018-10-28] MEDS: Acetaminophen 325 MG TAB 650 MG PO (18:40)
[2018-10-28 19:15] VITALS: BP 137/84; PULSE 97; RESP 20; TEMP 37.4; O2SAT 99
[2018-10-28] MEDS: Gabapentin 300 MG CAP PO (21:11)
[2018-10-29] MEDS: HYDROmorphone 2 MG TAB PO ×5 (01:32→19:59)
[2018-10-29] MEDS: diphenhydrAMINE 25 MG CAP PO (01:44)
--- NOTE | 2018-10-29 06:48 | W.PM.PROGNOT ---
Date of Service Date of service: 10/29/18 Time of Service: 06:40 Assessment and Plan (1) Open abdominal wall wound: Current visit: Yes Status: Acute A\\ Awaiting her home wound vac. Once here will change her dressing prior to discharge P\\ Will have either myself or Dr. Leger look at wound Will ask nursing to apply some nystatin powder over the skin at the edges prior to placment of the wound vac. As long as the powder is not at the edges of the tegaderm it should still work Qualifiers: Encounter type: subsequent encounter Qualified Code(s): S31.109D - Unspecified open wound of abdominal wall, unspecified quadrant without penetration into peritoneal cavity, subsequent encounter (2) Yeast dermatitis: Current visit: Yes Status: Acute On IV Diflucan try some nystatin powder at time of dressing change If no improvement may have to go to daily mosit to dry dressing changes instead of wound vac to allow the skin to Breath. (3) Diarrhea: Current visit: Yes Status: Acute Improving with metamucil. BM's are soft but more formed Qualifiers: Diarrhea type: unspecified type Qualified Code(s): R19.7 - Diarrhea, unspecified (4) Discharged to home: Current visit: Yes Status: Acute A\\ Patient asking to go home on Saturday due to bad weather. her mother will be traveling from [place] to come get her. P\\ D/C home with Home Health on Saturday Subjective Interval history since last seen: Feeling OK. I just want to go home No N/V Rash around wound vac itching Exam Resp Effort & Inspection: normal respiratory effort Auscultation: clear to auscultation bilaterally Cardio Rate: regular rate Rhythm: regular rhythm Heart Sounds: no gallops, no murmurs and no rubs GI Inspection: normal to inspection Palpation: soft, no hepatosplenomegaly and nontender Auscultation: normal bowel sounds Objective Objective Clinical Data: Abnormal lab results 10/27/18 Range/Units 06:20 Prealbumin 12 L (20-40) mg/dL Vital Signs Temperature 99.3 F 10/28/18 19:15 Temperature Source Skin 10/28/18 19:15 Pulse 97 H 10/28/18 19:15 Pulse Rhythm Regular 10/28/18 15:30 Pulse 89 09/30/18 23:50 Respiratory Rate 20 10/28/18 19:15 Respiratory Effort 10/28/18 15:30 Respiratory Depth Normal 10/28/18 15:30 Respiratory Pattern Normal 10/28/18 15:30 Blood Pressure 137/84 10/28/18 19:15 Blood Pressure Mean 85 09/30/18 23:36 Pulse Oximetry 99 10/28/18 19:15 Oxygen Delivery Method Room Air 10/28/18 19:15 Oxygen Flow Rate 0 10/28/18 19:15 Pain Level 7 10/29/18 06:12 Comment 10/23/18 07:25 Intake & Output 10/28/18 10/28/18 10/29/18 11:59 23:59 11:59 Intake Total 230 / 3066.867 2836.867 / 3066.867 450 / 450 Output Total 4750 / 4750 Balance -4520 / -4497.811 0562.867 / -1683.133 450 / 450 Weight 270 lb 4.587 oz Intake: IV 50 / 2406.867 2356.867 / 2406.867 Oral 180 / 660 480 / 660 450 / 450 Output: Urine 4750 / 4750 Other: Urine Color Yellow Urine Appearance Clear Clear Urine Odor None Comment Total of 2 voids Stool Size Moderate Moderate Stool Characteristics Soft Soft Voiding Methods Toilet Laboratory Results WBC 4.90 k/cumm (4.4-10.8) 10/27/18 06:20 RBC 3.15 m/cumm (4.00-5.20) L 10/27/18 06:20 Hgb 9.0 g/dL (12.0-15.5) L 10/27/18 06:20 Hct 27.5 % (36.0-46.0) L 10/27/18 06:20 MCV 87.3 fL (80-95) 10/27/18 06:20 MCH 28.6 pg (27.0-33.0) 10/27/18 06:20 MCHC 32.7 g/dL (32.0-36.0) 10/27/18 06:20 RDW 12.8 % (11.7-14.6) 10/27/18 06:20 Plt Count 256 x1000/uL (130-400) 10/27/18 06:20 MPV 9.3 fL (8.0-11.0) 10/27/18 06:20 Immature Gran % 0.8 10/27/18 06:20 Neutrophils % 50.0 10/27/18 06:20 Lymphocytes % 30.2 10/27/18 06:20 Monocytes % 8.2 10/27/18 06:20 Eosinophils % 10.6 10/27/18 06:20 Basophils % 0.2 10/27/18 06:20 Absolute Neutrophils 2.45 k/cumm (1.2-6.7) 10/27/18 06:20 Absolute Lymphocytes 1.48 k/cumm (1.2-3.4) 10/27/18 06:20 Absolute Monocytes 0.40 k/cumm (0.11-0.7) 10/27/18 06:20 Absolute Eosinophils 0.52 k/cumm (0.0-0.7) 10/27/18 06:20 Absolute Basophils 0.01 k/cumm (0.0-0.2) 10/27/18 06:20 PT 10.3 sec (9.3-11.0) 10/22/18 15:07 INR 1.0 (0.9-1.1) 10/22/18 15:07 APTT 24.4 sec (21.0-31.4) 10/01/18 07:00 Sodium 143 mmol/L (136-145) 10/27/18 06:20 Potassium 3.3 mmol/L (3.5-5.1) L 10/27/18 06:20 Chloride 106 mmol/L (98-107) 10/27/18 06:20 Carbon Dioxide 25.3 mmol/L (21.0-32.0) 10/27/18 06:20 Anion Gap 11.7 mmol/L (3-11) H 10/27/18 06:20 BUN 8 mg/dL (7-18) 10/27/18 06:20 Creatinine 0.67 mg/dL (0.55-1.02) 10/27/18 06:20 Estimated GFR/1.73 m2 >= 60.00 (mL/min/1.73m2) 10/27/18 06:20 Glucose 118 mg/dL (70-100) H 10/27/18 06:20 Lactate 1.1 mmol/l (0.6-1.4) 10/01/18 15:10 Calcium 8.2 mg/dL (8.5-10.1) L 10/27/18 06:20 Phosphorus 2.2 mg/dL (2.6-4.7) L 10/21/18 06:26 Magnesium 1.8 mg/dL (1.8-2.4) 10/22/18 07:34 Iron 39 ug/dL (50-175) L 10/18/18 07:50 TIBC 277 ug/dL (250-450) 10/18/18 07:50 Transferrin % Sat 14 % (15-50) L 10/18/18 07:50 Ferritin 389 ng/mL (8-388) H 10/18/18 07:50 Total Bilirubin 0.5 mg/dL (0.2-1.0) 10/27/18 06:20 AST 22 U/L (15-37) 10/27/18 06:20 ALT 28 U/L (12-78) 10/27/18 06:20 Alkaline Phosphatase 85 U/L (46-116) 10/27/18 06:20 Total Protein 7.2 g/dL (6.4-8.2) 10/27/18 06:20 Albumin 2.3 g/dL (3.4-5.0) L 10/27/18 06:20 Prealbumin 12 mg/dL (20-40) L 10/27/18 06:20 Urine Color Yellow (Yellow) 10/21/18 22:15 Urine Clarity Clear 10/21/18 22:15 Urine pH 6.5 (5-8) 10/21/18 22:15 Ur Specific [place] <= 1.005 (1.005-1.025) 10/21/18 22:15 Urine Protein Negative mg/dL (Negative) 10/21/18 22:15 Urine Ketones Negative mg/dL (Negative) 10/21/18 22:15 Urine Blood Negative (Negative) 10/21/18 22:15 Urine Nitrite Negative (Negative) 10/21/18 22:15 Urine Bilirubin Negative (Negative) 10/21/18 22:15 Urine Urobilinogen 0.2 EU/dL (Up TO 0.2) 10/21/18 22:15 Ur Leukocyte Esterase Negative (Negative) 10/21/18 22:15 Urine RBC 0-2 (0-2) 10/21/18 11:42 Urine WBC 3-5 HPF (0-5) 10/21/18 11:42 Ur Epithelial Cells Many HPF (Negative) 10/21/18 11:42 Urine Crystals Negative HPF (Negative) 10/21/18 11:42 Urine Bacteria Moderate HPF (Negative) 10/21/18 11:42 Urine Casts Comment LPF (Negative) 10/21/18 11:42 Urine Mucus Moderate (Negative) 10/21/18 11:42 Ur Culture Indicated? No/sq. contamination 10/21/18 11:42 Urine Glucose Negative mg/dL (Negative) 10/21/18 22:15 C.difficile Tox Ab Neut Cancelled 10/06/18 15:46
[2018-10-29 07:10] VITALS: BP 133/84; PULSE 91; RESP 20; TEMP 37.3; O2SAT 97
[2018-10-29] MEDS: LORazepam 1 MG TAB PO ×2 (07:25→21:55)
[2018-10-29] MEDS: DEXTROSE 5%-0.45% SALINE 1,000 ML 50 ML IV (08:11)
[2018-10-29] MEDS: Psyllium PKT 1 EACH PO (08:32)
[2018-10-29] MEDS: Normal Saline Flush 10 ML SYR 20 ML IVP ×2 (08:34→19:58)
[2018-10-29] MEDS: Normal Saline Flush 10 ML SYR IVP (12:53)
[2018-10-29] MEDS: Acetaminophen 325 MG TAB 650 MG PO ×2 (12:53→19:59)
[2018-10-29] MEDS: LORazepam 2 MG/ML VIAL 1 MG IVP (13:15)
--- NOTE | 2018-10-29 15:01 | PDOC.CMPRO ---
- If Service Date Differs Date of service: 10/29/18 Time of Service: 15:01 Care Management Progress Note S/O: Radha is lying in bed when this production underwriter visits this afternoon, she is pleasant and receptive to discussion. Radha states that her dogs came today and she was able to see them for the first time since September. Radha states that she is tired today, and has recently received ativan. Radha is planning on returning home on Saturday to her moms in [place] with VNA supports [phone]) F([phone]). Radha is currently awaiting a [place] wound vac to come and be placed, which is being worked on. A: Radha is a 48 year old female admitted for wound dehiscence that underwent ileostomy reversal on10/15/18, she developed fluid collection at the surgical site and went to [facility] P: She will be discharged when medically ready to her Mothers home in [place]. She will have resumption of VNA services for nursing through [facility]. She will continue with wound vac at time of discharge. Family will transport at time of discharge. CM to continue to provide support to patient ongoing discharge planning and disposition.
--- NOTE | 2018-10-29 15:10 | CMPROGNOTE_ITS ---
- If Service Date Differs Date of service: 10/29/18 Time of Service: 15:01 Care Management Progress Note S/O: Radha is lying in bed when this health underwriter visits this afternoon, she is pleasant and receptive to discussion. Radha states that her dogs came today and she was able to see them for the first time since September. Radha states that she is tired today, and has recently received ativan. Radha is planning on returning home on Saturday to her moms in [place] with VNA supports P() F([phone]). Radha is currently awaiting a [place] wound vac to come and be placed, which is being worked on. A: Radha is a 48 year old female admitted for wound dehiscence that underwent ileostomy reversal on10/15/18, she developed fluid collection at the surgical site and went to [facility] P: She will be discharged when medically ready to her Mothers home in [place]. She will have resumption of VNA services for nursing through [facility]. She will continue with wound vac at time of discharge. Family will transport at time of discharge. CM to continue to provide support to patient ongoing discharge planning and disposition.
[2018-10-29] MEDS: Nystatin CREAM 30 GM TUBE TP ×2 (15:48→20:40)
--- NOTE | 2018-10-29 16:16 | PGE_ITS ---
Date of Service Date of service: 10/29/18 Time of Service: 16:12 Assessment and Plan (1) Open abdominal wall wound: Current visit: Yes Status: Acute P\\ remove wound vac for now Apply Senty gel to wound BID and cover with Mepitel border dressing. Apply nystatin cream to skin around wound. Place whick into old ostomy site to allow drainage. Qualifiers: Encounter type: subsequent encounter Qualified Code(s): S31.109D - Unspecified open wound of abdominal wall, unspecified quadrant without penetration into peritoneal cavity, subsequent encounter Subjective Interval history since last seen: Doing OK. Eating and drinking OK Exam GI Other: Wound vac removed. Midline incision- 23 x 3 x 1.5 cm. Beefy red Old ostomy site- 3 x 2.5 x 2 cm. Some cloudy drainage noted from the medial wound. This was gently probed with a Q-tip. A small area of tunneling was noted. A ehick was placed. Skin around the wound is red and escoriated. ? yeast. On diflucan IV. Objective Objective Clinical Data: Vital Signs Temperature 99.1 F 10/29/18 07:10 Temperature Source Temporal Artery Scan 10/29/18 07:10 Pulse 91 H 10/29/18 07:10 Pulse Rhythm Regular 10/29/18 07:41 Pulse 89 09/30/18 23:50 Respiratory Rate 20 10/29/18 07:10 Respiratory Effort Non-Labored 10/29/18 07:41 Respiratory Depth Normal 10/29/18 07:41 Respiratory Pattern Normal 10/29/18 07:41 Blood Pressure 133/84 10/29/18 07:10 Blood Pressure Mean 85 09/30/18 23:36 Pulse Oximetry 97 10/29/18 07:10 Oxygen Delivery Method Room Air 10/29/18 07:10 Oxygen Flow Rate 0 10/29/18 07:10 Pain Level 4 10/29/18 12:28 Comment 10/23/18 07:25 Intake & Output 10/28/18 10/29/18 10/29/18 23:59 11:59 23:59 Intake Total 2836.867 / 3066.867 450 / 450 Output Total 2250 / 2250 Balance 2836.867 / -1683.133 -1800 / -1800 Weight 269 lb 13.533 oz Intake: IV 2356.867 / 2406.867 Oral 480 / 660 450 / 450 Output: Urine 2250 / 2250 Other: Urine Color Yellow Urine Appearance Clear Clear Urine Odor None Stool Size Moderate Small Stool Characteristics Soft Soft Formed Voiding Methods Toilet Laboratory Results WBC 4.90 k/cumm (4.4-10.8) 10/27/18 06:20 RBC 3.15 m/cumm (4.00-5.20) L 10/27/18 06:20 Hgb 9.0 g/dL (12.0-15.5) L 10/27/18 06:20 Hct 27.5 % (36.0-46.0) L 10/27/18 06:20 MCV 87.3 fL (80-95) 10/27/18 06:20 MCH 28.6 pg (27.0-33.0) 10/27/18 06:20 MCHC 32.7 g/dL (32.0-36.0) 10/27/18 06:20 RDW 12.8 % (11.7-14.6) 10/27/18 06:20 Plt Count 256 x1000/uL (130-400) 10/27/18 06:20 MPV 9.3 fL (8.0-11.0) 10/27/18 06:20 Immature Gran % 0.8 10/27/18 06:20 Neutrophils % 50.0 10/27/18 06:20 Lymphocytes % 30.2 10/27/18 06:20 Monocytes % 8.2 10/27/18 06:20 Eosinophils % 10.6 10/27/18 06:20 Basophils % 0.2 10/27/18 06:20 Absolute Neutrophils 2.45 k/cumm (1.2-6.7) 10/27/18 06:20 Absolute Lymphocytes 1.48 k/cumm (1.2-3.4) 10/27/18 06:20 Absolute Monocytes 0.40 k/cumm (0.11-0.7) 10/27/18 06:20 Absolute Eosinophils 0.52 k/cumm (0.0-0.7) 10/27/18 06:20 Absolute Basophils 0.01 k/cumm (0.0-0.2) 10/27/18 06:20 PT 10.3 sec (9.3-11.0) 10/22/18 15:07 INR 1.0 (0.9-1.1) 10/22/18 15:07 APTT 24.4 sec (21.0-31.4) 10/01/18 07:00 Sodium 143 mmol/L (136-145) 10/27/18 06:20 Potassium 3.3 mmol/L (3.5-5.1) L 10/27/18 06:20 Chloride 106 mmol/L (98-107) 10/27/18 06:20 Carbon Dioxide 25.3 mmol/L (21.0-32.0) 10/27/18 06:20 Anion Gap 11.7 mmol/L (3-11) H 10/27/18 06:20 BUN 8 mg/dL (7-18) 10/27/18 06:20 Creatinine 0.67 mg/dL (0.55-1.02) 10/27/18 06:20 Estimated GFR/1.73 m2 >= 60.00 (mL/min/1.73m2) 10/27/18 06:20 Glucose 118 mg/dL (70-100) H 10/27/18 06:20 Lactate 1.1 mmol/l (0.6-1.4) 10/01/18 15:10 Calcium 8.2 mg/dL (8.5-10.1) L 10/27/18 06:20 Phosphorus 2.2 mg/dL (2.6-4.7) L 10/21/18 06:26 Magnesium 1.8 mg/dL (1.8-2.4) 10/22/18 07:34 Iron 39 ug/dL (50-175) L 10/18/18 07:50 TIBC 277 ug/dL (250-450) 10/18/18 07:50 Transferrin % Sat 14 % (15-50) L 10/18/18 07:50 Ferritin 389 ng/mL (8-388) H 10/18/18 07:50 Total Bilirubin 0.5 mg/dL (0.2-1.0) 10/27/18 06:20 AST 22 U/L (15-37) 10/27/18 06:20 ALT 28 U/L (12-78) 10/27/18 06:20 Alkaline Phosphatase 85 U/L (46-116) 10/27/18 06:20 Total Protein 7.2 g/dL (6.4-8.2) 10/27/18 06:20 Albumin 2.3 g/dL (3.4-5.0) L 10/27/18 06:20 Prealbumin 12 mg/dL (20-40) L 10/27/18 06:20 Urine Color Yellow (Yellow) 10/21/18 22:15 Urine Clarity Clear 10/21/18 22:15 Urine pH 6.5 (5-8) 10/21/18 22:15 Ur Specific [place] <= 1.005 (1.005-1.025) 10/21/18 22:15 Urine Protein Negative mg/dL (Negative) 10/21/18 22:15 Urine Ketones Negative mg/dL (Negative) 10/21/18 22:15 Urine Blood Negative (Negative) 10/21/18 22:15 Urine Nitrite Negative (Negative) 10/21/18 22:15 Urine Bilirubin Negative (Negative) 10/21/18 22:15 Urine Urobilinogen 0.2 EU/dL (Up TO 0.2) 10/21/18 22:15 Ur Leukocyte Esterase Negative (Negative) 10/21/18 22:15 Urine RBC 0-2 (0-2) 10/21/18 11:42 Urine WBC 3-5 HPF (0-5) 10/21/18 11:42 Ur Epithelial Cells Many HPF (Negative) 10/21/18 11:42 Urine Crystals Negative HPF (Negative) 10/21/18 11:42 Urine Bacteria Moderate HPF (Negative) 10/21/18 11:42 Urine Casts Comment LPF (Negative) 10/21/18 11:42 Urine Mucus Moderate (Negative) 10/21/18 11:42 Ur Culture Indicated? No/sq. contamination 10/21/18 11:42 Urine Glucose Negative mg/dL (Negative) 10/21/18 22:15 C.difficile Tox Ab Neut Cancelled 10/06/18 15:46
[2018-10-29 16:33] VITALS: BP 150/89; PULSE 81; RESP 19; TEMP 37.4; O2SAT 98
[2018-10-29 17:20] VITALS: BP 121/81; PULSE 92; RESP 18; TEMP 37.2; O2SAT 100
[2018-10-29] MEDS: Nystatin CREAM 15 GM TUBE TP (19:57)
[2018-10-29] MEDS: Gabapentin 300 MG CAP PO (21:55)
[2018-10-29 23:38] VITALS: BP 131/79; PULSE 87; RESP 18; TEMP 37; O2SAT 99
[2018-10-30] MEDS: HYDROmorphone 2 MG TAB PO ×4 (03:56→18:06)
[2018-10-30] MEDS: Acetaminophen 325 MG TAB 650 MG PO ×2 (03:56→18:06)
[2018-10-30 04:28] VITALS: BP 143/91; PULSE 90; RESP 20; TEMP 37.6; O2SAT 97
[2018-10-30 07:45] VITALS: BP 157/92; PULSE 88; RESP 18; TEMP 36.9; O2SAT 99
[2018-10-30] MEDS: Nystatin CREAM 30 GM TUBE TP (08:12)
[2018-10-30] MEDS: Normal Saline Flush 10 ML SYR 20 ML IVP ×2 (08:15→19:47)
[2018-10-30] MEDS: Nystatin CREAM 15 GM TUBE TP (08:15)
[2018-10-30] MEDS: Psyllium PKT 1 EACH PO ×3 (08:16→19:48)
[2018-10-30] MEDS: Lactobacillus Acidophilus CAP 1 CAP PO (08:21)
[2018-10-30] MEDS: LORazepam 1 MG TAB PO ×2 (09:04→17:25)
[2018-10-30] MEDS: Ondansetron O.D.T. 4 MG TABEF PO (09:41)
--- NOTE | 2018-10-30 09:42 | PSYCO_ITS ---
Date of service: 10/30/18 History of Present Illness Narrative: Events since initial consultation/last note: Overnight events: eating and voiding fine Medications: - continues to take ativan 1mg about twice daily per MAR I was alerted by nursing and care management staff that Radha appeared more depressed and that her expressed concern that Radha seemed more depressed. Subjective: I'm doing okay, I guess.. and immediately dissolved into tears when saying this. Admitted to just wanting to go home. Admitted to crying more and feeling more frustrated. Mood: woke up in fine mood. Is just wanting to leave the hospital Anxiety: feels more stressed and anxious. In particular is concerned about insurance not covering cost of wound vac at home. Sleep: slept fine last night. Safety: denies SI. REVIEW OF SYSTEMS: Constitutional: feels health is better, appetite is fine Musculoskeletal/neuro: no weakness, numbness. Psych: see above MENTAL STATUS EXAM: Constitutional: sitting up in bed eating breakfast watching tv. Attitude: cooperative Psychomotor: no retardation or agitation Speech: non-pressured, normal volume and prosody. No articulation problems noted. Associations: no looseness Thought process: linear, logical, goal directed Thought content without psychosis, delusions, obsessions No suicidal or homicidal ideations Hallucinations denied Mood: Anxious Affect: dysphoric, constricted, tearful throughout interview Attention/Concentration: intact Judgment/insight: fair/fair Oriented x 4 Language appropriate to age and education Fund of knowledge appropriate to age and education Memory intact to recent and remote events Other cognitive testing: none Assessment and Plan (1) Anxiety and depression: Current visit: Yes Status: Acute Radha Parada is a 48 year old female with no past psychiatric diagnoses or treatment admitted for complications of ileostomy placement now reversed due to dehydration and acute kidney injury. She has been noted by her surgeon, Dr. Mittal, to be struggling with her health circumstance and requested psychiatry consultation which a few days ago my conclusion was that history and clinical exam did not support a mood or anxiety disorder. Today Radha's presentation is quite different. In spite of hopes of leaving the hospital tomorrow, she appears more dysphoric and anxious. Given that these symptoms have grown in the context of her health challenges I will given her a diagnosis of adjustment disorder with mixed features of anxiety and depression. I discussed with Radha that now might be the time to try an SSRI to give her more support in coping and healing. Radha was now amenable to trial of medication for anxiety in particular. I assured her that choice to take medication is hers and if for any reason she feels she is getting physical or mood side effects from medication she can simply stop it. She can trial this medication today before discharge tomorrow with a prescription. Recommendations: - trial lexapro 10mg by mouth once daily - first dose today - care management can continue to provide psychoeducation about stress and about medications (I already talked with Zora Chacon about this - thanks) - follow up with primary care within a week of discharge to check in on mood and medication. - Dr. Mittal or other covering attendings are welcome to contact me with questions ro concerns. Thank you very much for this consultation and including me in Radha Parada's care. [facility] Medical History DM2 (diabetes mellitus, type 2) (Chronic) Essential hypertension (Chronic) Morbid obesity (Chronic) Surgical History S/P colectomy (Acute 09/16/18) History of bilateral oophorectomies (Resolved) History of cholecystectomy (Resolved) History of ureter repair (Resolved) Status post complete hysterectomy (Resolved) Family History Father CAD (coronary artery disease) AMI (acute myocardial infarction) Maternal Aunt Breast cancer Social History Smoking and Tabacco status: Current every day Results Last Vital Signs Temp 36.9 C 10/30/18 07:45 Pulse 88 10/30/18 07:45 Resp 18 10/30/18 07:45 BP 157/92 H 10/30/18 07:45 Pulse Ox 99 10/30/18 07:45 Labs : 10/27/18 06:20 10/27/18 06:20
[2018-10-30] MEDS: Normal Saline 500 ML 30 ML IV (09:50)
[2018-10-30] MEDS: Normal Saline Flush 10 ML SYR IVP ×3 (09:52→19:48)
--- NOTE | 2018-10-30 10:22 | CMPROGNOTE_ITS ---
- If Service Date Differs Date of service: 10/30/18 Time of Service: 10:21 Care Management Progress Note S/O: CM met with Radha at the bedside she is alert and engaged with CM. She is tearful at times and states she feels stressed and overwhelmed with the situation and events over the last 60 days. She has questions about the wound vac. She states that she is hopeful it will be covered the prior auth was faxed on 10/29/18. CM encouraged Radha to stay in contact with hospice case manager through [employer]. Radha did contact her today and discussed concerns related to wound vac approval. CM contacted this chart writer and asked of the wound vac is not approved what the back up plan would be for dressing. CM reviewed notes with [facility] CM including large amount of drainage from the wound that would not be manageable by a dry dressing. Radha met with today and was started on a SSRI, Radha is nervous about taking the medication she states she does not like to depend on medications. CM reviewed and provided education related to SSRI and symptom management. Radha asked when she will feel the effects of the medications. CM provided education r/t to onset of medication and signs and symptoms to watch for. Radha plans to be discharged on Saturday with resumptions of home health services and anticipate wound vac. A: Radha is a 48 year old female admitted for wound dehiscence that underwent ileostomy reversal on10/15/18 P:She will be discharged when medically ready to her Mothers home in [place]. She will have resumption of VNA services for nursing through [facility]. Anticipate she will continue with wound vac at time of discharge. Family will transport.. CM to continue to provide support to patient ongoing discharge planning and disposition.
--- NOTE | 2018-10-30 10:26 | W.PM.PROGNOT ---
Date of Service Date of service: 10/30/18 Time of Service: 10:26 Assessment and Plan (1) Yeast dermatitis: Current visit: Yes Status: Acute topical nystatin pwder (2) Diarrhea: Current visit: Yes Status: Acute increase Metamucil to TID Qualifiers: Diarrhea type: unspecified type Qualified Code(s): R19.7 - Diarrhea, unspecified (3) Protein deficiency: Current visit: Yes Status: Acute diabetic protein supp (4) Anxiety and depression: Current visit: Yes Status: Acute per pysc. appreciate there imput (5) Open abdominal wall wound: Current visit: Yes Status: Acute wound vac for home use _dry dressings cannot handle the drainage load wound has min to no membrane and 98% granular tissue. no tunneling. no abscesses or fluid collection. yeast infection around ostomy is improving no osteo off abx. no infections pt is on protein supplements albumin increase from 2.0 to 2.3 BS are stable around 120's. pain controlled on oral meds wound is venita and continues to show signs of healing/improving Qualifiers: Encounter type: subsequent encounter Qualified Code(s): S31.109D - Unspecified open wound of abdominal wall, unspecified quadrant without penetration into peritoneal cavity, subsequent encounter (6) Hypokalemia due to loss of potassium: Current visit: Yes Status: Acute oral replacemnt (7) Chronic pain following surgery or procedure: Current visit: Yes Status: Acute increase gabepentin oral diladid and will need to do weaning once wound has healed ativan prior to dressing changes (8) Iron deficiency anemia due to chronic blood loss: Current visit: Yes Status: Acute will start on iron supplements may help w/ diarrhea as well if pt is nauseated than discontinue Subjective Patient reports: tolerating a regular diet, voiding w/o difficulty, diarrhea and afebrile; denies blood in stool and nausea Interval history since last seen: Pt did not get dose of Metamucil last pm adn now has diarrhea this am. Will increase dose of Metamucil to TID before trying any immodium/etc. no cp or sob. up walking. octavio reg diet. no cough. no pain or burning w/ urination. no leg pain or swelling. high drainage from wound. The mepalex dressing adhesive is not holding and is draining over pt. the rash around the small wound is better, and less itch. Exam Const General: cooperative, healthy appearing and no acute distress Orientation: alert and awake [facility] Head: normal to inspection Mouth: moist mucous membranes and other Teeth and gingiva: fair dentition Other: no thrush Eyes Other: no eye pain or drainage. no pain or diff swallowing Chest Chest: normal inspection of the chest Resp Effort & Inspection: normal respiratory effort and able to speak in complete sentences Auscultation: clear to auscultation bilaterally, no rales, no rhonchi and no wheezes GI Inspection: non-distended and incision Other: edges are clean 98% granulation tissue. no signif membrane. lg amount of serous discharge. rash that around ostomy wound is resolving w/ nystatin. drainage is bothering pt and interfering w/ her ability to walk. And is continuously draining over her close. dry dressing are not absorbent enough to handle the drainage. midline wound is: [id number] old ostomy site is: 5.5x2x1.5cm no tunneling. no abscesses. Skin Other: rash around ostomy site is less red adn less purutic Extrem Other: no leg swelling or pain Objective Objective Clinical Data: Vital Signs Temperature 36.9 C 10/30/18 07:45 Temperature Source Tympanic 10/30/18 07:45 Pulse 88 10/30/18 07:45 Pulse Rhythm Regular 10/29/18 20:13 Pulse 89 09/30/18 23:50 Respiratory Rate 18 10/30/18 07:45 Respiratory Effort Non-Labored 10/29/18 20:13 Respiratory Depth Normal 10/29/18 20:13 Respiratory Pattern Normal 10/29/18 20:13 Blood Pressure 157/92 H 10/30/18 07:45 Blood Pressure Mean 85 09/30/18 23:36 Pulse Oximetry 99 10/30/18 07:45 Oxygen Delivery Method Room Air 10/30/18 07:45 Oxygen Flow Rate 0 10/30/18 07:45 Pain Level 10 10/30/18 09:41 Comment 10/23/18 07:25 Intake & Output 10/29/18 10/29/18 10/30/18 11:59 23:59 11:59 Intake Total 500 / 2031.633 1532.633 / 2031.633 930 / 930 Output Total 2250 / 3150 900 / 3150 600 / 600 Balance -1750 / -1117.367 632.633 / -1117.367 330 / 330 Weight 122.4 kg 119.6 kg Intake: IV 50 / 1333.164 5153.633 / 1342.633 0 / 0 Oral 450 / 690 240 / 690 930 / 930 Output: Urine 2250 / 3150 900 / 3150 600 / 600 Other: Urine Color Yellow Straw Yellow Urine Appearance Clear Clear Clear Urine Odor None Normal Normal Stool Size Small Stool Characteristics Soft Formed Voiding Methods Toilet Toilet Toilet Laboratory Results WBC 4.90 k/cumm (4.4-10.8) 10/27/18 06:20 RBC 3.15 m/cumm (4.00-5.20) L 10/27/18 06:20 Hgb 9.0 g/dL (12.0-15.5) L 10/27/18 06:20 Hct 27.5 % (36.0-46.0) L 10/27/18 06:20 MCV 87.3 fL (80-95) 10/27/18 06:20 MCH 28.6 pg (27.0-33.0) 10/27/18 06:20 MCHC 32.7 g/dL (32.0-36.0) 10/27/18 06:20 RDW 12.8 % (11.7-14.6) 10/27/18 06:20 Plt Count 256 x1000/uL (130-400) 10/27/18 06:20 MPV 9.3 fL (8.0-11.0) 10/27/18 06:20 Immature Gran % 0.8 10/27/18 06:20 Neutrophils % 50.0 10/27/18 06:20 Lymphocytes % 30.2 10/27/18 06:20 Monocytes % 8.2 10/27/18 06:20 Eosinophils % 10.6 10/27/18 06:20 Basophils % 0.2 10/27/18 06:20 Absolute Neutrophils 2.45 k/cumm (1.2-6.7) 10/27/18 06:20 Absolute Lymphocytes 1.48 k/cumm (1.2-3.4) 10/27/18 06:20 Absolute Monocytes 0.40 k/cumm (0.11-0.7) 10/27/18 06:20 Absolute Eosinophils 0.52 k/cumm (0.0-0.7) 10/27/18 06:20 Absolute Basophils 0.01 k/cumm (0.0-0.2) 10/27/18 06:20 PT 10.3 sec (9.3-11.0) 10/22/18 15:07 INR 1.0 (0.9-1.1) 10/22/18 15:07 APTT 24.4 sec (21.0-31.4) 10/01/18 07:00 Sodium 143 mmol/L (136-145) 10/27/18 06:20 Potassium 3.3 mmol/L (3.5-5.1) L 10/27/18 06:20 Chloride 106 mmol/L (98-107) 10/27/18 06:20 Carbon Dioxide 25.3 mmol/L (21.0-32.0) 10/27/18 06:20 Anion Gap 11.7 mmol/L (3-11) H 10/27/18 06:20 BUN 8 mg/dL (7-18) 10/27/18 06:20 Creatinine 0.67 mg/dL (0.55-1.02) 10/27/18 06:20 Estimated GFR/1.73 m2 >= 60.00 (mL/min/1.73m2) 10/27/18 06:20 Glucose 118 mg/dL (70-100) H 10/27/18 06:20 Lactate 1.1 mmol/l (0.6-1.4) 10/01/18 15:10 Calcium 8.2 mg/dL (8.5-10.1) L 10/27/18 06:20 Phosphorus 2.2 mg/dL (2.6-4.7) L 10/21/18 06:26 Magnesium 1.8 mg/dL (1.8-2.4) 10/22/18 07:34 Iron 39 ug/dL (50-175) L 10/18/18 07:50 TIBC 277 ug/dL (250-450) 10/18/18 07:50 Transferrin % Sat 14 % (15-50) L 10/18/18 07:50 Ferritin 389 ng/mL (8-388) H 10/18/18 07:50 Total Bilirubin 0.5 mg/dL (0.2-1.0) 10/27/18 06:20 AST 22 U/L (15-37) 10/27/18 06:20 ALT 28 U/L (12-78) 10/27/18 06:20 Alkaline Phosphatase 85 U/L (46-116) 10/27/18 06:20 Total Protein 7.2 g/dL (6.4-8.2) 10/27/18 06:20 Albumin 2.3 g/dL (3.4-5.0) L 10/27/18 06:20 Prealbumin 12 mg/dL (20-40) L 10/27/18 06:20 Urine Color Yellow (Yellow) 10/21/18 22:15 Urine Clarity Clear 10/21/18 22:15 Urine pH 6.5 (5-8) 10/21/18 22:15 Ur Specific [place] <= 1.005 (1.005-1.025) 10/21/18 22:15 Urine Protein Negative mg/dL (Negative) 10/21/18 22:15 Urine Ketones Negative mg/dL (Negative) 10/21/18 22:15 Urine Blood Negative (Negative) 10/21/18 22:15 Urine Nitrite Negative (Negative) 10/21/18 22:15 Urine Bilirubin Negative (Negative) 10/21/18 22:15 Urine Urobilinogen 0.2 EU/dL (Up TO 0.2) 10/21/18 22:15 Ur Leukocyte Esterase Negative (Negative) 10/21/18 22:15 Urine RBC 0-2 (0-2) 10/21/18 11:42 Urine WBC 3-5 HPF (0-5) 10/21/18 11:42 Ur Epithelial Cells Many HPF (Negative) 10/21/18 11:42 Urine Crystals Negative HPF (Negative) 10/21/18 11:42 Urine Bacteria Moderate HPF (Negative) 10/21/18 11:42 Urine Casts Comment LPF (Negative) 10/21/18 11:42 Urine Mucus Moderate (Negative) 10/21/18 11:42 Ur Culture Indicated? No/sq. contamination 10/21/18 11:42 Urine Glucose Negative mg/dL (Negative) 10/21/18 22:15 C.difficile Tox Ab Neut Cancelled 10/06/18 15:46
[2018-10-30 11:16] VITALS: BP 132/85; PULSE 87; RESP 18; TEMP 37.4; O2SAT 99
[2018-10-30 15:34] VITALS: BP 133/83; PULSE 83; RESP 18; TEMP 37.4; O2SAT 98
[2018-10-30 19:07] VITALS: BP 118/77; PULSE 87; RESP 18; TEMP 37.3; O2SAT 99
[2018-10-30] MEDS: LORazepam 0.5 MG TAB PO (19:48)
[2018-10-30] MEDS: diphenhydrAMINE 50 MG/ML VIAL IVP (19:49)
[2018-10-31 04:36] VITALS: BP 134/76; PULSE 73; RESP 18; TEMP 37.2; O2SAT 100
[2018-10-31] MEDS: HYDROmorphone 2 MG TAB PO ×3 (04:37→12:58)
[2018-10-31] MEDS: LORazepam 1 MG TAB PO (06:07)
--- NOTE | 2018-10-31 07:26 | PGE_ITS ---
Date of Service Date of service: 10/31/18 Time of Service: 07:17 Assessment and Plan (1) Iron deficiency anemia due to chronic blood loss: Current visit: Yes Status: Acute started MVI w/ iron (2) Chronic pain following surgery or procedure: Current visit: Yes Status: Acute d/c home on po dilaudid for pain ativan prior to dressing changes gabepentin (3) Yeast dermatitis: Current visit: Yes Status: Acute nystatin pwder under tegaderm (4) Diarrhea: Current visit: Yes Status: Acute metamucil tid Qualifiers: Diarrhea type: unspecified type Qualified Code(s): R19.7 - Diarrhea, unspecified (5) Protein deficiency: Current visit: Yes Status: Acute protein supplements- diabetic type (6) Anxiety and depression: Current visit: Yes Status: Acute started on effexor (7) Discharged to home: Current visit: Yes Status: Acute -waiting to here on final approval on wound vac and that home health is establishes ?d/c home w/ PICC line continue to coordinate and hopefully dc home today Subjective Patient reports: no new complaints, tolerating a regular diet and bowel movement Interval history since last seen: less diarrhea . Took metamucil. Psc never started pt on a mood stabilizer so will start on low dose efexor. pt spent most of the night crying and concerned she would not be able to go home. Wound actually looks better- yeast is starting to resolve. Will send her home w/ topical meds for yeast. Pt has high drainage from wound still- serous. But too lg to be managed by dressings and does much better with vac. Exam Narrative Exam Narrative: no fever/chills. no n/v. no productive cough no cp or sob. no diarrhea today. no leg pain or swelling. [facility] Head: normal to inspection and atraumatic Mouth: moist mucous membranes abnormal Teeth and gingiva: fair dentition Other: no thrush Eyes Other: no eye pain or drainage. no jaundice Chest Chest: normal inspection of the chest Cardio Jugular venous pressure: no JVD Palpation: normal PMI Rate: regular rate Rhythm: regular rhythm Other: no R/RR/W GI Palpation: soft and No ascites Auscultation: normal bowel sounds Other: wound VAC in place. see measurements from yest. good granulation tissues. serous drainage. mild redness under tegaderm. Skin Other: no breakdown Extrem General: normal to inspection and no clubbing, cyanosis or edema Objective Objective Clinical Data: Vital Signs Temperature 37.2 C 10/31/18 04:36 Temperature Source Tympanic 10/31/18 04:36 Pulse 73 10/31/18 04:36 Pulse Rhythm Regular 10/30/18 17:00 Pulse 89 09/30/18 23:50 Respiratory Rate 18 10/31/18 04:36 Respiratory Effort Non-Labored 10/30/18 17:00 Respiratory Depth Normal 10/30/18 17:00 Respiratory Pattern Normal 10/30/18 17:00 Blood Pressure 134/76 10/31/18 04:36 Blood Pressure Mean 85 09/30/18 23:36 Pulse Oximetry 100 10/31/18 04:36 Oxygen Delivery Method Room Air 10/31/18 04:36 Oxygen Flow Rate 0 10/31/18 04:36 Pain Level 8 10/31/18 04:37 Comment 10/23/18 07:25 Intake & Output 10/30/18 10/30/18 10/31/18 11:59 23:59 11:59 Intake Total 1140 / 2244 1104 / 2244 Output Total 1400 / 1600 200 / 1600 500 / 500 Balance -260 / 644 904 / 644 -500 / -500 Weight 119.6 kg Intake: IV 90 / 354 264 / 354 Oral 1050 / 1890 840 / 1890 Output: Urine 1400 / 1600 200 / 1600 500 / 500 Other: Urine Color Straw Yellow Yellow Urine Appearance Clear Clear Urine Odor Normal None Stool Size Small Stool Characteristics Soft Formed Voiding Methods Toilet Toilet Laboratory Results WBC 4.90 k/cumm (4.4-10.8) 10/27/18 06:20 RBC 3.15 m/cumm (4.00-5.20) L 10/27/18 06:20 Hgb 9.0 g/dL (12.0-15.5) L 10/27/18 06:20 Hct 27.5 % (36.0-46.0) L 10/27/18 06:20 MCV 87.3 fL (80-95) 10/27/18 06:20 MCH 28.6 pg (27.0-33.0) 10/27/18 06:20 MCHC 32.7 g/dL (32.0-36.0) 10/27/18 06:20 RDW 12.8 % (11.7-14.6) 10/27/18 06:20 Plt Count 256 x1000/uL (130-400) 10/27/18 06:20 MPV 9.3 fL (8.0-11.0) 10/27/18 06:20 Immature Gran % 0.8 10/27/18 06:20 Neutrophils % 50.0 10/27/18 06:20 Lymphocytes % 30.2 10/27/18 06:20 Monocytes % 8.2 10/27/18 06:20 Eosinophils % 10.6 10/27/18 06:20 Basophils % 0.2 10/27/18 06:20 Absolute Neutrophils 2.45 k/cumm (1.2-6.7) 10/27/18 06:20 Absolute Lymphocytes 1.48 k/cumm (1.2-3.4) 10/27/18 06:20 Absolute Monocytes 0.40 k/cumm (0.11-0.7) 10/27/18 06:20 Absolute Eosinophils 0.52 k/cumm (0.0-0.7) 10/27/18 06:20 Absolute Basophils 0.01 k/cumm (0.0-0.2) 10/27/18 06:20 PT 10.3 sec (9.3-11.0) 10/22/18 15:07 INR 1.0 (0.9-1.1) 10/22/18 15:07 APTT 24.4 sec (21.0-31.4) 10/01/18 07:00 Sodium 143 mmol/L (136-145) 10/27/18 06:20 Potassium 3.3 mmol/L (3.5-5.1) L 10/27/18 06:20 Chloride 106 mmol/L (98-107) 10/27/18 06:20 Carbon Dioxide 25.3 mmol/L (21.0-32.0) 10/27/18 06:20 Anion Gap 11.7 mmol/L (3-11) H 10/27/18 06:20 BUN 8 mg/dL (7-18) 10/27/18 06:20 Creatinine 0.67 mg/dL (0.55-1.02) 10/27/18 06:20 Estimated GFR/1.73 m2 >= 60.00 (mL/min/1.73m2) 10/27/18 06:20 Glucose 118 mg/dL (70-100) H 10/27/18 06:20 Lactate 1.1 mmol/l (0.6-1.4) 10/01/18 15:10 Calcium 8.2 mg/dL (8.5-10.1) L 10/27/18 06:20 Phosphorus 2.2 mg/dL (2.6-4.7) L 10/21/18 06:26 Magnesium 1.8 mg/dL (1.8-2.4) 10/22/18 07:34 Iron 39 ug/dL (50-175) L 10/18/18 07:50 TIBC 277 ug/dL (250-450) 10/18/18 07:50 Transferrin % Sat 14 % (15-50) L 10/18/18 07:50 Ferritin 389 ng/mL (8-388) H 10/18/18 07:50 Total Bilirubin 0.5 mg/dL (0.2-1.0) 10/27/18 06:20 AST 22 U/L (15-37) 10/27/18 06:20 ALT 28 U/L (12-78) 10/27/18 06:20 Alkaline Phosphatase 85 U/L (46-116) 10/27/18 06:20 Total Protein 7.2 g/dL (6.4-8.2) 10/27/18 06:20 Albumin 2.3 g/dL (3.4-5.0) L 10/27/18 06:20 Prealbumin 12 mg/dL (20-40) L 10/27/18 06:20 Urine Color Yellow (Yellow) 10/21/18 22:15 Urine Clarity Clear 10/21/18 22:15 Urine pH 6.5 (5-8) 10/21/18 22:15 Ur Specific [place] <= 1.005 (1.005-1.025) 10/21/18 22:15 Urine Protein Negative mg/dL (Negative) 10/21/18 22:15 Urine Ketones Negative mg/dL (Negative) 10/21/18 22:15 Urine Blood Negative (Negative) 10/21/18 22:15 Urine Nitrite Negative (Negative) 10/21/18 22:15 Urine Bilirubin Negative (Negative) 10/21/18 22:15 Urine Urobilinogen 0.2 EU/dL (Up TO 0.2) 10/21/18 22:15 Ur Leukocyte Esterase Negative (Negative) 10/21/18 22:15 Urine RBC 0-2 (0-2) 10/21/18 11:42 Urine WBC 3-5 HPF (0-5) 10/21/18 11:42 Ur Epithelial Cells Many HPF (Negative) 10/21/18 11:42 Urine Crystals Negative HPF (Negative) 10/21/18 11:42 Urine Bacteria Moderate HPF (Negative) 10/21/18 11:42 Urine Casts Comment LPF (Negative) 10/21/18 11:42 Urine Mucus Moderate (Negative) 10/21/18 11:42 Ur Culture Indicated? No/sq. contamination 10/21/18 11:42 Urine Glucose Negative mg/dL (Negative) 10/21/18 22:15 C.difficile Tox Ab Neut Cancelled 10/06/18 15:46
[2018-10-31 07:35] VITALS: BP 128/76; PULSE 76; RESP 18; TEMP 37.1; O2SAT 97
[2018-10-31] MEDS: Psyllium PKT 1 EACH PO (09:19)
[2018-10-31] MEDS: Normal Saline Flush 10 ML SYR 20 ML IVP (09:19)
[2018-10-31] MEDS: Potassium Chloride Liquid 20 MEQ PKT 40 MEQ PO (09:19)
[2018-10-31] MEDS: Lactobacillus Acidophilus CAP 1 CAP PO (09:20)
[2018-10-31] MEDS: Venlafaxine 37.5 MG CAPCR PO (09:20)
[2018-10-31] MEDS: Bacitracin 1 PACKET (11:02)
--- NOTE | 2018-10-31 12:28 | W.PM.DS.N ---
DS: Diagnosis Discharge Diagnosis (1) Iron deficiency anemia due to chronic blood loss: Status: Acute (2) Chronic pain following surgery or procedure: Status: Acute (3) Yeast dermatitis: Status: Acute (4) Diarrhea: Status: Acute (5) Protein deficiency: Status: Acute (6) Anxiety and depression: Status: Acute (7) Discharged to home: Status: Acute (8) Hypomagnesemia: Status: Acute (9) Open abdominal wall wound: Status: Acute (10) Anemia of chronic disorder: Status: Acute (11) Hypokalemia due to loss of potassium: Status: Acute Discharge Plan Disposition Patient Disposition: HOME Condition: Improving Discharge Details Reason For Visit: FASCIAL DEHISCENCE Admit Date/Time: 09/30/18 18:00 Admit Provider: Maynor Curtis III Attending Provider: Maynor Curtis III Primary Care Provider: Danna Gonzalez [facility] Course Hospital Course: see dc summary Home Meds and New Rx's Prescriptions: New diphenhydramine HCl 25 mg capsule 25 mg PO Q4H PRN PRN (Reason: Itching) Qty: 0 RF: 0 gabapentin 300 mg Capsule 600 mg PO HS Qty: 30 RF: 2 acetaminophen 325 mg capsule 650 mg PO Q6H PRN PRNQty: 0 RF: 0 hydromorphone 2 mg Tablet 1 - 2 mg PO Q4H PRN PRN5 Days Qty: 30 RF: 0 acidophilus-pectin, citrus 25 million cell -100 mg Tablet 1 cap PO TID PRN PRN30 Days Qty: 90 RF: 2 venlafaxine [Effexor XR] 37.5 mg Capsule,Extended Release 24hr 37.5 mg PO DAILY 30 Days Qty: 30 RF: 2 ranitidine HCl 150 mg Tablet 150 mg PO BID 30 Days Qty: 60 RF: 2 lorazepam 1 mg tablet 1 mg PO DIRECTED PRNQty: 20 RF: 0 melatonin 3 mg Tablet Extended Release 3 mg PO HS PRN PRN (Reason: insomnia) Qty: 0 RF: 0 Metamucil Sugar-Free (aspart) 3.4 gram/5.8 gram Powder 1 ea PO TID Qty: 0 RF: 0 Multivitamin W/Iron [Poly-Vi-Columba W/Iron] 1 ml PO DAILY 30 Days RF: 0 nystatin 100,000 unit/gram powder 1 applic TP DAILY Qty: 30 RF: 2 Continued hydrochlorothiazide 25 mg tablet 25 mg PO DAILY RF: 0 metformin 1,000 mg Tablet 1,000 mg PO BID RF: 0 lisinopril 5 mg Tablet 5 mg PO DAILY RF: 0 acetaminophen [Tylenol Extra Strength] 500 mg tablet 500 mg PO QID PRN (Reason: fever or pain) Qty: 10 RF: 0 ibuprofen 600 mg tablet 600 mg PO QID PRN (Reason: fever or pain) Qty: 10 RF: 0 Discontinued bisacodyl [Dulcolax (bisacodyl)] 5 mg tablet,delayed release (DR/EC) 5 mg PO ONCE Qty: 4 RF: 0 polyethylene glycol 3350 17 gram/dose powder 255 g PO ONCE Qty: 255 RF: 0 sulfamethoxazole-trimethoprim 800-160 mg Tablet 1 tab PO BID Qty: 17 RF: 0 Discharge Instructions Instructions: Negative Pressure Wound Therapy (DC) Additional Instructions: Keep an ice bag on the incision. 20 minutes on and 20 minutes off. Ice keeps the swelling down and swelling causes pain. Make sure you wrap the ice pack in a towel and don't apply directly to the skin. -No driving Home Health Care will do wound vac changes M/W/F. Use nystatin powder under tegaderm. -Follow-up with Dr. Reddy in 1 weeks time -controlled carb diet -It is ok to shower. No bathe, soaking, swimming or hot tubs pplements daily. You may find that your appetite is smaller. Eat 3-6 small meals throughout the day. It is important to drink lots of water after surgery, 6-10 glasses a day. -If you were given an incentive spirometry (breathing burglar alarm mechanic?), continue to do this 10x/hour while awake. -We do want you up walking, at least 5-6 times per day. This is very important to prevent pneumonia and blood clots. You can climb stairs, take them slowly. -No lifting over 5 pounds. This is very important to avoid developing a hernia in your incision. -You may find that you are very tired after surgery- this is normal. -please do not smoke for a minimum of 72 hours after surgery. Stand Alone Forms: Nursing Discharge Form Referrals: Ayala Mittal MD [ [facility] STAFF PHYSICIAN] - 11/14/18 9:30 am Activity:: up walking. no lifting over 5#'s. no driving Equipment/Supplies:: Blood Glucose Monitor Diet:: Carb Counting Discharge Orders Discharge Orders: Discharge Order (Routine); Ordered 10/31/18 Ordered By: Helen Leger Discharge Data Discharge Date/Time-TO BE ENTERED AT DEPARTURE: 10/31/18 13:10 DS: Summary Status at Discharge Cognitive/behavioral status at discharge: very anxious and has developed tolerance to narcotics. She is sent home w/ ativan prior to VAC changes. She was started on effexor for anxiety. She is given Rx for po dialudid. She was started on gabepentin as an adjustive for pain. She can also use OTC tyleno adn ibuprofen Functional status at discharge: independent ambulation Overall status at discharge: patient is not back to baseline Time Spent with Patient Greater than 30 minutes Exam Const General: cooperative, no acute distress, anxious and well hydrated Nutritional Appearance: well nourished and overweight Orientation: alert, awake and oriented x3 HENMT Head: normal to inspection, normocephalic and atraumatic Ears: hearing grossly normal bilaterally General nose exam: external nose normal Face and sinus: normal facial exam, sinuses nontender and face symmetric Mouth: oral mucosae normal and moist mucous membranes abnormal Teeth and gingiva: fair dentition and other (no thrush) Eyes General: appearance normal, both eyes and all related structures Sclera: sclerae normal Chest Chest: normal inspection of the chest Resp Effort & Inspection: normal respiratory effort and able to speak in complete sentences Auscultation: clear to auscultation bilaterally Cardio Jugular venous pressure: no JVD Rate: regular rate Rhythm: regular rhythm GI Inspection: normal to inspection Palpation: soft Other: wound shows good granulation. see measurements on note from 10/31. no signif membrane. high drainage- but is serous. Skin General skin exam: no rashes or lesions noted Other: intact. no breakdown. no joint pain or swelling. no leg pain or swelling. PICC is removed. mild yeast dermatitis on skin around the old ostomy site. this is improving w/ nystatin. Psych Affect: anxious affect Other: pt is very anxious about her health. She is started on effexor. DS: Data Vitals/I&O Vitals and I&O: Vital Signs Temperature 37.1 C 10/31/18 07:35 Temperature Source Tympanic 10/31/18 07:35 Pulse 76 10/31/18 07:35 Pulse Rhythm Regular 10/31/18 04:38 Pulse 89 09/30/18 23:50 Respiratory Rate 18 10/31/18 07:35 Respiratory Effort 10/31/18 04:38 Respiratory Depth Normal 10/31/18 04:38 Respiratory Pattern Normal 10/31/18 04:38 Blood Pressure 128/76 10/31/18 07:35 Blood Pressure Mean 85 09/30/18 23:36 Pulse Oximetry 97 10/31/18 07:35 Oxygen Delivery Method Room Air 10/31/18 07:35 Oxygen Flow Rate 0 10/31/18 07:35 Pain Level 6 10/31/18 10:20 Comment 10/23/18 07:25 Intake & Output 10/30/18 10/31/18 10/31/18 23:59 11:59 23:59 Intake Total 1104 / 2244 120 / 170 50 / 170 Output Total 200 / 1600 1400 / 1400 Balance 904 / 644 -1280 / -1230 50 / -1230 Weight 117.7 kg Intake: IV 264 / 354 20 / 70 50 / 70 Oral 840 / 1890 100 / 100 Output: Urine 200 / 1600 1400 / 1400 Other: Urine Color Yellow Yellow Urine Appearance Clear Cloudy Urine Odor None Normal Stool Size Small Stool Characteristics Soft Formed Voiding Methods Toilet Toilet [facility] Medical History DM2 (diabetes mellitus, type 2) (Chronic) Essential hypertension (Chronic) Morbid obesity (Chronic) Surgical History S/P colectomy (Acute 09/16/18) History of bilateral oophorectomies (Resolved) History of cholecystectomy (Resolved) History of ureter repair (Resolved) Status post complete hysterectomy (Resolved) Family History Father CAD (coronary artery disease) AMI (acute myocardial infarction) Maternal Aunt Breast cancer Social History Smoking and Tabacco status: Current every day
--- NOTE | 2018-10-31 12:40 | PDOC.HHF2F ---
1. Encounter Date and Reason I certify that HIRAM CARDONA was seen by Helen Leger on 10/31/18 and that I had a [id number] encounter with this patient that meets the physician face to face encounter requirements. 2. Clinical Findings Supporting Skilled Need and Homebound Status I certify that home health services are medically necessary, include either intermittent senior living and/or physical/speech therapy, and that this patient is homebound in that absences from the home require considerable and taxing effort and are infrequent or of short duration, or are attributable to the need to receive medical care. [X] (a) Attached documentation from encounter provides clinical findings supporting skilled need and homebound status (including what assistance patient requires to leave the home). The encounter with the patient was in whole, or in part, for the following medical condition, which is the primary reason for home health care: FASCIAL DEHISCENCE open abdominal wound w/ wound vac Fpc: for dressing changes x3 per week (M/W/R) Physical Therapy: Speech Therapy: Homebound: 3. Certification and Authentication I certify that I composed the above information based on my clinical judgement relating to this patient's medical condition and, if applicable, clinical findings communicated to me by the NPP or inpatient physician who performed the Home Health Referral. All further orders will be obtained through __Dr. Reddy (Community Based Physician - PCP)
--- NOTE | 2018-10-31 13:14 | PDOC.CMDIS ---
- If Service Date Differs Date of service: 10/31/18 Time of Service: 13:14 LACE Index Scoring Tool - Questions: Length of Stay (in days): 14 or more Acuity (Admit via E.D.?): No Comorbidities: Diabetes w/o Complication E.D. Visits: 1 - Answers: Total Score: 9 Risk of Readmission: Low Risk Care Management Discharge Reason for Hospitalization: Abdominal wall dehiscence Discharge Plan: Radha will return home today with home health RN services to resume through the [facility]. Radha will be going to her moms home to recover. CM contacted [facility], and faxed DC paperwork to them. [facility] states that they will visit Radha on Saturday11/01/18 for a wound vac dressing change. Radha's family will transport her home today. Patient/Family Education Needs: Review DC instructions, any limitations, and discuss Ask Me Three Services Needed at Discharge: Home Health Care Services (RN - wound management)
--- NOTE | 2018-10-31 13:57 | CMDISCH_ITS ---
- If Service Date Differs Date of service: 10/31/18 Time of Service: 13:14 LACE Index Scoring Tool - Questions: Length of Stay (in days): 14 or more Acuity (Admit via E.D.?): No Comorbidities: Diabetes w/o Complication E.D. Visits: 1 - Answers: Total Score: 9 Risk of Readmission: Low Risk Care Management Discharge Reason for Hospitalization: Abdominal wall dehiscence Discharge Plan: Radha will return home today with home health RN services to resume through the [facility]. Radha will be going to her moms home to recover. CM contacted [facility], and faxed DC paperwork to them. [facility] states that they will visit Radha on Saturday11/01/18 for a wound vac dressing change. Radha's family will transport her home today. Patient/Family Education Needs: Review DC instructions, any limitations, and discuss Ask Me Three Services Needed at Discharge: Home Health Care Services (RN - wound management)
== END 2018-10-31 13:10 | disposition home or self-care (01) | DRG 901 ==
LOC: ICU 10-01 04:11 → MS 10-01 07:14
PROVIDERS: Surgery; Admitting Provider Surgery; PCP Nurse Practitioner Family; Visit Provider Surgery
PROC: 0JB80ZZ Excision of Abdomen Subcutaneous Tissue and Fascia, Open Approach (ICD-10-PCS; CPT 44320; principal; 2018-10-15 07:30)
DX: T81.30XA Disruption of wound, unspecified, initial encounter (principal); K65.1 Peritoneal abscess; T81.43XA Infection following a procedure, organ and space surgical site, initial encounter; K94.13 Enterostomy malfunction; N17.9 Acute kidney failure, unspecified; T82.898A Other specified complication of vascular prosthetic devices, implants and grafts, initial encounter; E44.1 Mild protein-calorie malnutrition; Z71.3 Dietary counseling and surveillance; D50.0 Iron deficiency anemia secondary to blood loss (chronic); G89.28 Other chronic postprocedural pain; B37.2 Candidiasis of skin and nail; R19.7 Diarrhea, unspecified; E66.01 Morbid (severe) obesity due to excess calories; Z68.39 Body mass index [BMI] 39.0-39.9, adult; F41.8 Other specified anxiety disorders; R19.8 Other specified symptoms and signs involving the digestive system and abdomen; E86.0 Dehydration; Z90.49 Acquired absence of other specified parts of digestive tract; B95.7 Other staphylococcus as the cause of diseases classified elsewhere; E11.9 Type 2 diabetes mellitus without complications; I10 Essential (primary) hypertension; T88.8XXA Other specified complications of surgical and medical care, not elsewhere classified, initial encounter; R50.82 Postprocedural fever; E87.6 Hypokalemia; E83.42 Hypomagnesemia; F17.210 Nicotine dependence, cigarettes, uncomplicated
CPT/HCPCS: 44620; 11042; 11045 ×7; 36415; 36569; 71045; 80048; 80051; 80053; 82947; 85027; 99223; 99232; 99239; 99253; J1650; NC; 74177; 81003; 81015; 82040; 82247; 82310; 82565; 82728; 83540; 83550; 83605; 83735; 84075; 84100; 84134; 84460; 85025; 85610; 85730; 87070; 87205; 87230; 87324; 88304; 88307; J1100; J1200; J1450; J1756; J1885; J2060; J2250; J2405; J2997; J3475; J3490

== ENCOUNTER 2019-04-23 01:53 | Outpatient (CLI) | payer BC, SELFPAY ==
--- NOTE | 2019-04-23 14:46 | DI.US_ITS ---
SYMPTOM/DIAGNOSIS:RLQ PAIN, ? HERNIA HERNIA ULTRASOUND: Sonographic evaluation was performed in the left lower quadrant in the area of pain at the site of the prior ileostomy. Sonographically, no findings to suggest a herniation are seen. No soft tissue mass is appreciated. IMPRESSION: No sonographic evidence of an anterior abdominal wall hernia in the left lower quadrant in the area of pain.
== END 2019-04-23 02:13 ==
PROVIDERS: PCP Nurse Practitioner Family; Visit Provider Physical Therapy Assistant
DX: R10.31 Right lower quadrant pain (principal)
CPT/HCPCS: 76857

== ENCOUNTER 2019-05-11 08:42 | Day surgery (SDC) | payer BC, SELFPAY ==
--- NOTE | 2019-05-11 07:07 | W.COLOREPORT ---
Date of service: 05/11/19 Time of Service: 11:41 Colonoscopy Report Date of procedure: 05/11/19 Pre-op diagnosis general: Colon Cancer Screening Post-op diagnosis procedure note: same Procedure: Colonoscopy Surgeon: Ayala Mittal Anesthesia proc note operative: none (General/ ASA 2/Liz Perez, PUNEET) Estimated blood loss (mL): 0 Pathology: none sent Complications: None Disposition: same day Indications: Mrs. Parada is a pleasant 48 year old female with a history of diverticulitis and fistula. She is here for a screening colonoscopy. Risks, benefits and complications have been reviewed. Complications include but are not limited to bleeding, pain, perforation, missed small lesion/polyp, sore throat, aspiration and adverse reaction to the medications. Questions were entertained and answered to their satisfaction and they wished to proceed. No guarantees were given or implied. Prep: Miralax/Dulcolax Procedure Start Time: 11:41 Procedure End Time: 12:03 Retraction Time: 18 minutes Findings: Intact anastamosis, no narrowing Procedure Description: After informed consent was obtained the patient was taken to the procedure room and placed in a left decubitous position. Monitors were applied and a time out was done. The patients name, date of , procedure, allergies to medications and metal in their body was reviewed. The patient was then sedated. Once sedated and comfortable a rectal exam was done. External exam was normal. Internal exam revealed a normal sphincter tone and no palpable masses. The scope was then introduced and retro-flexed. No internal hemorrhoids were identified. The scope was then advanced to the cecum without difficulty. The TI and appendiceal orifice were identified. The prep was adequate. The scope was then slowly retracted over 18 minutes back into the rectum. There were no polyps and no diverticula. The scope was removed and the patient was woken up and taken back to Same day surgery in stable condition. The patient tolerated the procedure well and there were no immediate complications. Follow up: The patient should follow up in 10 years unless they develop changes in bowel habits or other new gastrointestinal complaints.
--- NOTE | 2019-05-11 07:10 | W.PM.DSUDISC ---
Discharge Plan Disposition Patient Disposition: HOME Condition: Good Discharge Details Reason For Visit: Colon Cancer Screening Attending Provider: Ayala Mittal Primary Care Provider: Danna Gonzalez Home Meds and New Rx's Prescriptions: Continued diphenhydramine HCl 25 mg capsule 25 mg PO Q4H PRN RF: 0 acetaminophen [Tylenol Extra Strength] 500 mg tablet 500 mg PO QID PRN (Reason: fever or pain) Qty: 10 RF: 0 ibuprofen 600 mg tablet 600 mg PO QID PRN (Reason: fever or pain) Qty: 10 RF: 0 Discontinued polyethylene glycol 3350 17 gram/dose powder 238 g PO ONCE Qty: 238 RF: 0 bisacodyl [Dulcolax (bisacodyl)] 5 mg tablet,delayed release (DR/EC) 5 mg PO ONCE Qty: 4 RF: 0 Discharge Instructions Additional Instructions: Findings: Normal Follow up: 10 years Please call if you develop: fevers >101.5 Nausea or Vomiting Abdominal pain that is not transient DAY SURGERY UNIT POST ENDOSCOPY INSTRUCTIONS 1. Because there will be medication in your system for the next 24 hours, you may feel a little sleepy. Your coordination will be affected. Therefore: a. Do not drive or operate dangerous equipment for 24 hours. b. Do not drink alcohol beverages for 24 hours (not even beer). c. Plan to go home and rest for the day. 2. Generally there are no restrictions on your activity after a day or so has gone by, but you may feel a bit fatigued for a few days. 3 After you arrive home you may have a light meal and return to a normal diet as you can tolerate it without feeling sick to your stomach. 4. After surgery, you may feel pain or discomfort. This should be only transient, but if it persists please contact your doctor. 5. If there are any questions regarding the findings of your procedure, please feel free to contact your doctor. 6. If you are unable to contact your doctor with a problem, contact the hospital at [phone]. 7. Continue all your regular medications unless directed otherwise. I understand the above instructions and have no questions. Signature of Patient or Responsible Adult Escort Date/Time Name of Responsible Adult Escort Signature of Nurse Date/Time Activity:: Activity as Tolerated Diet:: As Tolerated Discharge Orders Discharge Orders: Discharge Order (Routine); Ordered 05/11/19 Ordered By: Ayala Mittal DS: Diagnosis Discharge Diagnosis (1) S/P colonoscopy:
[2019-05-11 09:22] VITALS: BP 138/97; PULSE 83; RESP 16; TEMP 36.7; O2SAT 99
[2019-05-11] MEDS: Lactated Ringers 1,000 ML 80 ML IV (09:53)
[2019-05-11 12:45] VITALS: BP 129/75; PULSE 76; RESP 16; TEMP 36.4; O2SAT 96
== END 2019-05-11 12:55 | disposition home or self-care (01) ==
PROVIDERS: PCP Nurse Practitioner Family; Visit Provider Surgery
PROC: 0DJD8ZZ Inspection of Lower Intestinal Tract, Via Natural or Artificial Opening Endoscopic (ICD-10-PCS; CPT 45378; principal; 2019-05-11 10:45)
DX: Z12.11 Encounter for screening for malignant neoplasm of colon (principal); E11.9 Type 2 diabetes mellitus without complications; Z79.84 Long term (current) use of oral hypoglycemic drugs; I10 Essential (primary) hypertension
CPT/HCPCS: 45378

== ENCOUNTER 2019-07-31 01:42 | Outpatient (CLI) | payer BC, SELFPAY ==
--- NOTE | 2019-07-31 13:46 | DI.RAD_ITS ---
EXAM: XR CHEST 2V PA LATERAL CLINICAL HISTORY: screening. ppd questionable. exposure as a child, Z11.1 COMPARISON: XR PORTABLE CHEST AP POST LINE from 10/22/2018 FINDINGS: Heart is at the upper limits of normal in size. Diaphragm is mildly elevated on the right as noted pr evious examinations. Lungs appear clear. No pleural effusion seen. IMPRESSION: No evidence of acute process. No specific evidence of granulomatous disease.
== END 2019-07-31 02:02 ==
PROVIDERS: PCP Nurse Practitioner Family; Visit Provider Nurse Practitioner Family
DX: Z11.1 Encounter for screening for respiratory tuberculosis (principal); I51.7 Cardiomegaly
CPT/HCPCS: 71046

== ENCOUNTER 2019-12-10 19:20 | Outpatient (REF) | payer BC, SELFPAY ==
[2019-12-14 11:26] LABS: COVID-19 RT-PCR Result Undetected (NotDetected)
== END 2019-12-10 19:40 ==
LOC: NCHCN 19:20
PROVIDERS: PCP Nurse Practitioner Family; Visit Provider Nurse Practitioner Family
DX: R05 Cough (principal); R50.9 Fever, unspecified
CPT/HCPCS: U0003

== ENCOUNTER 2020-01-07 08:58 | Outpatient (REF) | payer BC, SELFPAY ==
[2020-01-07 15:18] LABS: HCT 44.8 % (36.0-46.0); HGB 15.7 g/dL (12.0-15.5); Mean Corpuscular Hemoglobin 29.3 pg (27.0-33.0); Mean Corpuscular Volume 83.7 fL (80-95); Platelet Count 173 x1000/uL (130-400); RBC 5.35 m/cumm (4.00-5.20); RBC Distribution Width 12.4 % (11.7-14.6); White Blood Cell Count 6.34 k/cumm (4.4-10.8)
[2020-01-07 16:02] LABS: Hemoglobin A1C 10.5 % (3.8-5.6)
[2020-01-07 20:21] LABS: Anion Gap 14.1 mmol/L (3-11); BUN 14 mg/dL (7-18); CO2 23.9 mmol/L (21.0-32.0); CREATININE 1.11 mg/dL (0.55-1.02); Calcium 9.2 mg/dL (8.5-10.1); Calculated LDL 82 mg/dL (<100); Chloride 93 mmol/L (98-107); Cholesterol 146 mg/dL (<200); Estimated GFR 52.46 (mL/min/1.73m2); Glucose 394 mg/dL (74-106); HDL Cholesterol 46 mg/dL (40-60); Potassium 3.8 mmol/L (3.5-5.1); Sodium 131 mmol/L (136-145); Triglyceride 93 mg/dL (<150)
== END 2020-01-07 09:18 ==
LOC: NCHCN 08:58
PROVIDERS: PCP Nurse Practitioner Family; Visit Provider Nurse Practitioner Family
DX: E11.40 Type 2 diabetes mellitus with diabetic neuropathy, unspecified (principal); I10 Essential (primary) hypertension; D50.9 Iron deficiency anemia, unspecified
CPT/HCPCS: 80048; 80061; 85027; 83036

== ENCOUNTER 2020-02-11 01:21 | Outpatient (CLI) | payer BC, SELFPAY ==
--- NOTE | 2020-02-11 08:45 | DI.MAMMO_ITS ---
EXAM: MAMMO SCREENING CLINICAL HISTORY: SCREENING, Z12.39 TECHNIQUE: Mammograms were interpreted according to the usual protocol including computer analysis w [employer] CAD system, tomosynthesis and C-view imaging. COMPARISON: FINDINGS: The breasts are of moderate density with fairly symmetrical distribution of fibroglandular tissue. N o dominant mass or clumped microcalcification is identified in either breast. The current examinatio n is compared with previous examination of June 2015 and there has been no gross interval change i n appearance in comparison with the prior study. IMPRESSION: No specific evidence of malignancy at this time. Routine screening examinations are suggested at yea rly intervals in this age group according to the ACS ACR guidelines. BI-RADS Cat 1 - Negative Breast Density - Category B - Scattered areas of fibroglandular density:
== END 2020-02-11 01:41 ==
PROVIDERS: PCP Nurse Practitioner Family; Visit Provider Nurse Practitioner Family
DX: Z12.31 Encounter for screening mammogram for malignant neoplasm of breast (principal)
CPT/HCPCS: 77063; 77067

== ENCOUNTER 2020-03-23 08:42 | Outpatient (REF) | payer BC, SELFPAY ==
[2020-03-23 20:48] LABS: HGB 15.5 g/dL (12.0-15.5); Mean Corp. HGB Concentration 34.4 g/dL (32.0-36.0); Mean Corpuscular Hemoglobin 29.9 pg (27.0-33.0); Mean Corpuscular Volume 86.7 fL (80-95); Mean Platelet Volume 12.2 fL (8.0-11.0); Platelet Count 165 x1000/uL (130-400); RBC 5.19 m/cumm (4.00-5.20); RBC Distribution Width 13.2 % (11.7-14.6); White Blood Cell Count 5.87 k/cumm (4.4-10.8)
[2020-03-23 20:57] LABS: Anion Gap 12.7 mmol/L (3-11); BUN 12 mg/dL (7-18); CO2 24.3 mmol/L (21.0-32.0); CREATININE 0.87 mg/dL (0.55-1.02); Calcium 9.5 mg/dL (8.5-10.1); Chloride 101 mmol/L (98-107); Glucose 325 mg/dL (74-106); Potassium 3.9 mmol/L (3.5-5.1); Sodium 138 mmol/L (136-145)
[2020-03-23 21:08] LABS: Hemoglobin A1C 10.7 % (3.8-5.6)
== END 2020-03-23 09:02 ==
LOC: NCHCN 08:42
PROVIDERS: PCP Nurse Practitioner Family; Visit Provider Nurse Practitioner Family
DX: E11.40 Type 2 diabetes mellitus with diabetic neuropathy, unspecified (principal); I10 Essential (primary) hypertension
CPT/HCPCS: 80048; 85027; 83036

== ENCOUNTER 2020-03-25 09:11 | Outpatient (CLI) | payer BC, SELFPAY ==
--- NOTE | 2020-03-25 08:59 | DI.RAD_ITS ---
EXAM: XR ANKLE LT COMPLETE and XR foot LT complete CLINICAL HISTORY: FOOT JOINT PAIN LT M79.672 TECHNIQUE: 2D digital imaging was performed. COMPARISON: No previous for comparison. FINDINGS: BONES: No acute fracture is present. No bony destructive lesion is seen. JOINTS:The ankle mortise is normally aligned. No dislocation. SOFT TISSUE: Normal. IMPRESSION: Unremarkable radiographs of the left ankle and left foot. DATA REPOSITORY: RADIATION DOSE DELIVERED:
== END 2020-03-25 09:31 ==
PROVIDERS: PCP Nurse Practitioner Family; Visit Provider Nurse Practitioner Family
DX: M25.572 Pain in left ankle and joints of left foot (principal)
CPT/HCPCS: 73610; 73630

== ENCOUNTER 2020-10-05 09:07 | Outpatient (REF) | payer BC, SELFPAY ==
[2020-10-05 13:14] LABS: HCT 44.5 % (36.0-46.0); HGB 15.4 g/dL (11.2-15.7); MCH 29.6 pg (27.0-33.0); MCHC 34.6 % (32.0-36.0); MCV 85.4 fL (80-95); MPV 11.2 fL (8.0-11.0); Platelet Count 191 10^3/uL (130-400); RBC 5.21 10^6/uL (3.93-5.22); RDW 12.3 % (11.7-14.6); RDW-SD 38.1 fL; WBC 7.24 10^3/uL (4.4-10.8)
[2020-10-05 14:05] LABS: Anion Gap 12.3 mmol/L (3-11); BUN 9 mg/dL (7-18); CO2 23.7 mmol/L (21.0-32.0); CREATININE 0.8 mg/dL (0.55-1.02); Chloride 105 mmol/L (98-107); Glucose 218 mg/dL (74-106); Hemoglobin A1C 8.4 % (<5.7); Potassium 3.7 mmol/L (3.5-5.1); Sodium 141 mmol/L (136-145)
== END 2020-10-05 09:08 | disposition home or self-care (01) ==
LOC: NCHCN 09:07
PROVIDERS: PCP Nurse Practitioner Family; Visit Provider Nurse Practitioner Family
DX: R50.9 Fever, unspecified (principal); E11.40 Type 2 diabetes mellitus with diabetic neuropathy, unspecified
CPT/HCPCS: 80048; 85027; 83036

== ENCOUNTER 2020-10-11 10:57 | Outpatient (REF) | payer BC, SELFPAY ==
[2020-10-11 13:15] LABS: ALT 63 U/L (14-59); AST 45 U/L (15-37); Albumin 3.6 g/dL (3.4-5.0); Alkaline Phosphatase 80 U/L (46-116); Bilirubin, Total 0.9 mg/dL (0.2-1.0); C-Reactive Protein 0.37 mg/dL (0.0-0.3); Total Protein 7.5 g/dL (6.4-8.2)
[2020-10-11 22:34] LABS: ESR 35 mm/hr (<or=20)
[2020-10-12 10:42] LABS: Lyme Ab w Rflx to Lyme Confirm Negative (Negative)
[2020-10-12 14:19] LABS: ANA Interpretation Positive (Negative); ANA Titer Pattern 1:320 Homogeneous
[2020-10-14 22:12] LABS: Anaplasma phagocytophilum Negative (Negative); B. miyamotoi PCR Negative (Negative); Babesia divergens/MO-1 Negative (Negative); Babesia duncani Negative (Negative); Babesia microti Negative (Negative); Ehrlichia chaffeensis Negative (Negative); Ehrlichia ewingii/canis Negative (Negative); Ehrlichia muris eauclairensis Negative (Negative)
== END 2020-10-11 10:58 | disposition home or self-care (01) ==
LOC: NCHCN 10:57
PROVIDERS: PCP Nurse Practitioner Family; Visit Provider Nurse Practitioner Family
DX: R50.9 Fever, unspecified (principal)
CPT/HCPCS: 80076; 85652; 87798; 86038; 86140; 86618

== ENCOUNTER 2020-12-03 13:03 | Emergency (ER) | payer MEDICAID, SELFPAY ==
[2020-12-03 13:10] VITALS: BP 159/86; PULSE 93; RESP 16; TEMP 36.4; O2SAT 100
--- NOTE | 2020-12-03 13:24 | W.ED.GENAD ---
Discharge Plan Disposition Patient Disposition: HOME Condition: Good Discharge Details Clinical Impression: Acute pain of left hip Primary Care Provider: Adriana Desai ED Provider: Miranda White Home Meds and New Rx's Prescriptions: New methocarbamol 750 mg tablet 1,500 mg PO TID PRN (Reason: pain) Qty: 14 RF: 0 oxycodone 5 mg tablet 5 mg PO QHS PRN (Reason: pain) Qty: 3 RF: 0 Continued diphenhydramine HCl 25 mg capsule 25 mg PO Q4H PRN RF: 0 gabapentin 600 mg tablet 600 mg PO HS RF: 0 lisinopril 5 mg tablet 5 mg PO DAILY RF: 0 Trulicity 1.5 mg/0.5 mL Pen Injector 1.5 mg SUBCUT QWEEK RF: 0 acetaminophen [Tylenol Extra Strength] 500 mg tablet 500 mg PO QID PRN (Reason: fever or pain) Qty: 10 RF: 0 ibuprofen 600 mg tablet 600 mg PO QID PRN (Reason: fever or pain) Qty: 10 RF: 0 Discharge Instructions Instructions: Leg Pain (ED) Additional Instructions: Your imaging is reassuring today. Your exam is not consistent with infection. This is likely muscle spasm or may be associated with your autoimmune disorder. Please keep your upcoming rheumatology appointment. Please encourage gentle stretching. Heat or ice to affected area. You may try massage. May continue with Tylenol and/or ibuprofen as needed for discomfort. Please augment this with the methocarbamol as prescribed. To help you with your severe night discomfort, please take the oxycodone as prescribed. Do not take this with the methocarbamol, please try to separate these doses by a few hours. Please follow-up with your primary care this week for reevaluation. If you develop fever/chills, increased pain, altered sensation or other new/worsening symptoms please seek care urgently once again. Please follow-up with primary care next week for reevaluation. Referrals: Adriana Desai [Primary Care Provider] - Discharge Data Discharge Date/Time-TO BE ENTERED AT DEPARTURE: 12/03/20 15:42 Medical Decision Making Patient is a pleasant 50-year-old female presented with chief complaint of atraumatic left hip pain that began approximately 4 days ago. Patient states that she is been having posterior hip pain, worsened by movement, steadily since that time. Has been using Tylenol and/or ibuprofen as needed for discomfort. Past medical history pertinent for hypertension, type 2 diabetes, anxiety, depression. Patient states that she is also currently being worked up for lupus and has upcoming appointment with rheumatology at [facility]. She denies any radiation of pain. No fevers or chills. States that the pain can feel like a spasm. On exam, patient appears nontoxic. She 2+ pulses. Full range of motion of the left hip. She does have a minimal discomfort with axial loading of the hip. Pain is primarily elicited with palpation under the left gluteal fold. There is an area of firmness here distant with muscle spasm. No erythema, warmth, fluctuance. This does not feel consistent with an ab but rather muscle spasm. Please help with along with patient's history. She has no palpable defect or deformity. No ecchymosis. Pelvis stable. No back pain. Patient I discussed treatment options. She feels that this is spasm, is most consistent with worsening on exam, plan to give methocarbamol. She has used Tylenol and ibuprofen today. We will also place a Lidoderm patch over area of maximal discomfort. She does have some discomfort elicited with axial loading, plan to obtain x-ray. Contacted by radiologist who advises no acute abnormality. I discussed these findings withthe patient. She states mild improvement with above intervention. Patient was able to stand up more easily. However, she and I discussed her pain more and she began to cry. She statst that she is incredibly fatigued from not sleeping secondary to her pain and is distraught about this. She and I discussed further evaluation of her hip pain, it was not evident how much this pain was affecting her initially. She would like to hold off on further evaluation. I do not see evidence of neurologic dysfunction, infection or trauma. Will give patient a few oxycodone to help with discomfort that is limited sleep. Will prescribe methocarbamol to use during the day. However, I advised that she not take these medications together. Encouraged stretching, massage, heat/ice, tylenol/ibuprofen. Will refer to PT. She will f/u with PCP in the next 1-2 weeks. All of her questions and cocnerns were addressed, she is in agreement with this plan. HPI General Mode of arrival: ambulatory. Date/Time Provider Initiated Documentation: 12/03/20 13:06. Limitations to Documentation: no limitations. Information obtained by: patient and RN notes reviewed. History of Present Illness 50 year old F presents to the emergency department with the chief complaint of posterior left hip pain, described as moderate, with intensity rated at 8. Quality is described as aching, and is localized to the left and lower extremity. Patient reports no radiation. Patient started experiencing this day(s) (4) and it has been constant. Immobilization improves symptom(s), Movement worsens symptoms . Patient notes no other symptoms.. Patient did receive the following treatments prior to arrival, NSAID and other (APAP) Related Data Home Medications Medication Instructions Recorded Confirmed acetaminophen [Tylenol Extra 500 mg PO QID PRN #10 tab 07/10/18 12/03/20 Strength] ibuprofen 600 mg PO QID PRN #10 tab 07/10/18 12/03/20 diphenhydramine HCl 25 mg capsule 25 mg PO Q4H PRN cap 11/21/18 12/03/20 Trulicity 1.5 mg SUBCUT QWEEK 12/03/20 12/03/20 gabapentin 600 mg PO HS 12/03/20 12/03/20 lisinopril 5 mg PO DAILY 12/03/20 12/03/20 methocarbamol 1,500 mg PO TID PRN #14 tab 12/03/20 oxycodone 5 mg PO QHS PRN #3 tab 12/03/20 Previous Rx's Medication Instructions Recorded acetaminophen [Tylenol Extra 500 mg PO QID PRN #10 tab 07/10/18 Strength] ibuprofen 600 mg PO QID PRN #10 tab 07/10/18 methocarbamol 1,500 mg PO TID PRN #14 tab 12/03/20 oxycodone 5 mg PO QHS PRN #3 tab 12/03/20 Allergies Allergy/AdvReac Type Severity Reaction Status Date / Time ciprofloxacin [From Cipro] Allergy Severe Hives Verified 05/11/19 09:19 Penicillins Allergy Mild Hives Verified 05/11/19 09:19 metronidazole [From Flagyl] AdvReac Severe Naseau/Vomi Verified 05/11/19 09:19 ting General Stated Complaint: Orthopedic SHY: 4 Review of Systems Constitutional Constitutional: Reports as per HPI, Denies chills, Denies fever(s), Denies headache(s) and Denies weakness ENT Ears, Nose, Mouth, and Throat: Denies headache(s) Cardiovascular Cardiovascular: Reports as per HPI Respiratory Respiratory: Reports as per HPI and Denies cough Musculoskeletal Musculoskeletal: Reports as per HPI and Denies tingling Integumentary/Breasts Skin/Breast: Reports as per HPI, Denies rash and Denies wounds Neurologic Neurologic: Reports as per HPI, Denies headache(s), Denies tingling, Denies paresthesias and Denies weakness [facility] Medical History (Updated 12/03/20 @ 15:38 by KUSHAL Peng) Diverticulitis of large intestine with complication DM2 (diabetes mellitus, type 2) Essential hypertension Morbid obesity Surgical History History of bilateral oophorectomies History of cholecystectomy History of ureter repair Duplicate ureter, with re-implantation into bladder S/P closure of ileostomy S/P colectomy (09/16/18) enbloc low anterior colonic resection with 2 segments of small bowel and mass resection, small bowel resection x2 with anastomosis, splenic flexure mobilization, hernia repair x 2, loop ileostomy, lysis of adhesions, rigid sigmoidoscopy. S/P colonoscopy Status post complete hysterectomy Family History Father CAD (coronary artery disease) AMI (acute myocardial infarction) Maternal Aunt Breast cancer Social History Smoking/Tobacco Use Status: Former Tobacco Use Quit Date: 09/10/18 Smoking risk assessment performed?: Yes Alcohol Intake: never Drug use: Never Household members: spouse Do you feel safe at home: Yes Do you feel safe in your relationship?: Yes Exam Const General: cooperative, healthy appearing, uncomfortable, no acute distress, well developed and well groomed Nutritional Appearance: well nourished and overweight Orientation: alert and awake Resp Effort & Inspection: normal respiratory effort, able to speak in complete sentences and no respiratory distress Cardio Rate: regular rate Rhythm: regular rhythm Skin General skin exam: no rashes or lesions noted Lesions: no lesions Rashes: no rashes Trauma: no lacerations or abrasions Neuro General: patient alert and patient awake Cognition: normal cognition Speech: speech normal Gait: antalgic Motor: muscle tone normal throughout Sensory Exam: no sensory deficits noted Extrem Upper/lower leg/hip images: 1. Area of discomfort. Pain with palpation. No erythema, warmth, drainage. No evidence of trauma. Feels tight, consistent with muscle spasm. No fluctuant or evidence of infection. Full ROM without discomfort. Mild tenderness with axial loading. No palpable defect over the area of pain, able to flex knee against resistance. 2+ distal pulses, sensation intact. Psych Appearance: grossly normal and well kempt Mental Status: mental status grossly normal Speech and Movement: speech and movement normal Course Vital Signs Vital signs: Vital Signs Temperature 36.4 C L 12/03/20 13:10 Pulse 93 H 12/03/20 13:10 Respiratory Rate 16 12/03/20 13:10 Blood Pressure 159/86 H 12/03/20 13:10 Pulse Oximetry 100 12/03/20 13:10 Temperature 36.4 C L 12/03/20 13:10 Temperature Source Skin 12/03/20 13:10 Pulse 93 H 12/03/20 13:10 Respiratory Rate 16 12/03/20 13:10 Respiratory Effort 12/03/20 13:12 Blood Pressure 159/86 H 12/03/20 13:10 Blood Pressure Position Sitting 12/03/20 13:10 Pulse Oximetry 100 12/03/20 13:10 Oxygen Delivery Method Room Air 12/03/20 13:10 Oxygen Flow Rate 0 12/03/20 13:10 Pain Level 8 12/03/20 13:10
--- NOTE | 2020-12-03 13:45 | DI.RAD_ITS ---
EXAM: XR HIP LT COMPLETE AP PELVIS CLINICAL HISTORY: posterior hip pain TECHNIQUE: COMPARISON: No exams were available for comparison FINDINGS: Three views were obtained. There are minimal degenerative changes of the SI joints bilaterally. The hip joints appear well maintained. No bony or soft tissue abnormality. No abnormality of alignment . IMPRESSION: No evidence of acute process. RADIATION DOSE DELIVERED: Total DLP
[2020-12-03] MEDS: Lidocaine 5% Patch 1 PATCH TP (13:56)
[2020-12-03] MEDS: Methocarbamol 750 MG TAB 1500 MG PO (14:20)
--- NOTE | 2020-12-03 14:32 | DI.VRAD_ITS ---
PROCEDURE INFORMATION: Exam: XR Left Hip Exam date and time: 12/03/2020 2:24 PM Age: 50 years old Clinical indication: Hip pain; Left hip TECHNIQUE: Imaging protocol: XR Left hip. Views: 2 or 3 views hip with pelvis when performed. COMPARISON: CT ABDOMEN PELVIS W 10/22/2018 9:37 AM FINDINGS: Bones/joints: Degenerative arthritis visualized lower lumbar spine and sacroiliac joints. Soft tissues: Unremarkable. IMPRESSION: Normal appearance of the left hip. Mild degenerative arthritis visualized lower lumbar spine and sacroiliac joints. Dictated and Authenticated by: Leida Lala MD. Ordering:LESLY Jean MD
[2020-12-03 14:39] VITALS: BP 151/81; PULSE 88; RESP 15; O2SAT 100
--- NOTE | 2020-12-03 14:39 | NUR.NOTE ---
sitting on stretcher texting, resp even and unlabored, waiting for rad results
== END 2020-12-03 15:42 | disposition home or self-care (01) ==
PROVIDERS: Emergency Provider Physician Assistant; PCP Nurse Practitioner Family
DX: M25.552 Pain in left hip (principal)
CPT/HCPCS: 99283; 73502

== ENCOUNTER 2021-01-02 02:38 | Outpatient (CLI) | payer MEDICAID, SELFPAY ==
[2021-01-02 08:52] LABS: ESR 21 mm//hr (0-20)
[2021-01-02 10:09] LABS: C-Reactive Protein 0.27 mg/dL (0.0-0.3)
[2021-01-02 18:11] LABS: Rheumatoid Factor <8.6 IU/mL (<12.0)
[2021-01-03 09:25] LABS: Cyclic Citrullinated Peptide <2.5 U/mL (<5.0)
[2021-01-03 13:29] LABS: dsDNA Ab, IgG <12.3 IU/mL (<30.0)
[2021-01-03 13:32] LABS: SS-B (La) Ab, IgG 1.4 Units (<20.0)
[2021-01-03 13:34] LABS: RNP Ab, IgG 1.8 Units (<20.0)
[2021-01-03 13:59] LABS: SS-A Antibody 1.8 Units (<20.0)
[2021-01-03 15:07] LABS: Sm (Smith) Ab, IgG 2.5 Units (<20.0)
== END 2021-01-02 02:39 | disposition home or self-care (01) ==
LOC: LBO 02:38
PROVIDERS: PCP Nurse Practitioner Family; Visit Provider Internal Medicine
DX: R50.9 Fever, unspecified (principal); R76.8 Other specified abnormal immunological findings in serum; M25.59 Pain in other specified joint
CPT/HCPCS: 36415; 85652; 86200; 86140; 86225; 86235; 86431

== ENCOUNTER 2021-12-07 19:01 | Outpatient (REF) | payer MEDICAID, SELFPAY ==
[2021-12-07 19:48] LABS: ALT 54 U/L (14-59); AST 40 U/L (15-37); Albumin 3.6 g/dL (3.4-5.0); Alkaline Phosphatase 71 U/L (46-116); Anion Gap 11.3 mmol/L (3-11); BUN 16 mg/dL (7-18); Bilirubin, Total 0.7 mg/dL (0.2-1.0); CO2 24.7 mmol/L (21.0-32.0); CREATININE 0.9 mg/dL (0.55-1.02); Calcium 8.8 mg/dL (8.5-10.1); Chloride 106 mmol/L (98-107); Glucose 200 mg/dL (74-106); Potassium 3.4 mmol/L (3.5-5.1); Sodium 142 mmol/L (136-145); Total Protein 7.3 g/dL (6.4-8.2)
== END 2021-12-07 19:02 | disposition home or self-care (01) ==
LOC: NCHCN 19:01
PROVIDERS: PCP Nurse Practitioner Family; Visit Provider Nurse Practitioner Family
DX: I10 Essential (primary) hypertension (principal); E11.49 Type 2 diabetes mellitus with other diabetic neurological complication
CPT/HCPCS: 80053

== ENCOUNTER → 2022-01-26 00:08 | Outpatient (CLI) | payer MEDICAID, SELFPAY ==
--- NOTE | 2022-01-26 | DI.MAMMO_ITS ---
Exam(s) MAMMO SCREENING EXAM: MAMMO SCREENING CLINICAL HISTORY: SCREENING, Z12.39 TECHNIQUE: Mammograms were interpreted according to the usual protocol including computer analysis w [employer] CAD system, tomosynthesis and C-view imaging. COMPARISON: 2014 and 2019 FINDINGS: The breasts are composed of mainly fatty density , Breast Density category A. No suspicious masses or suspicious microcalcifications are seen. No skin thickening or abnormal axillary lymph nodes are seen. There has been no significant change from prior exams. IMPRESSION: BI-RADS Category 1, Negative mammogram Yearly screening mammography is recommended. Breast Density - Category A, fatty density. A negative radiographic report should not delay biopsy if a dominant or clinically suspicious mass is present. Up to ten percent of cancers are not identified on mammography. A negative report may reinforce clinical impression. Adenosis and dense breasts may obscure an underlying neoplasm. False positive reports average 6 to 10%. Patient will receive a letter notifying them of these results.
== END ==
PROVIDERS: PCP Nurse Practitioner Family; Visit Provider Nurse Practitioner Family
DX: Z12.31 Encounter for screening mammogram for malignant neoplasm of breast (principal)
CPT/HCPCS: 77063; 77067

== ENCOUNTER 2022-03-02 09:46 | Outpatient (REF) | payer MEDICAID, SELFPAY ==
[2022-03-05 01:07] LABS: HSV 1 PCR, B Negative (Negative); HSV 2 PCR, B Negative (Negative)
== END 2022-03-02 09:47 | disposition home or self-care (01) ==
LOC: NCHCN 09:46
PROVIDERS: PCP Nurse Practitioner Family; Visit Provider Nurse Practitioner Family
DX: Z11.3 Encounter for screening for infections with a predominantly sexual mode of transmission (principal); Z11.59 Encounter for screening for other viral diseases
CPT/HCPCS: 87529

== ENCOUNTER 2022-10-03 06:02 | Day surgery (SDC) | payer OTHER, MEDICAID, SELFPAY ==
[2022-10-03 06:17] VITALS: BP 143/93; PULSE 84; RESP 18; TEMP 36.6; O2SAT 99
[2022-10-03] MEDS: Lactated Ringers 1,000 ML 80 ML IV (06:37)
--- NOTE | 2022-10-03 06:59 | W.ANESPRE ---
General Info Date of Service Date Performed: 10/03/22 Height: 5 ft 9 in Weight: 121.6 kg Body Mass Index (BMI): 39.6 Surgical Procedure: Operation Date: 10/03/22 07:40 Proposed Procedure Side Surgeon p Wrist ECTR Right Chapo Salas MD Meds Allergies and Home Medications Allergies Allergy/AdvReac Type Severity Reaction Status Date / Time ciprofloxacin [From Cipro] Allergy Severe Hives Verified 10/03/22 06:13 Penicillins Allergy Mild Hives Verified 10/03/22 06:13 metronidazole [From Flagyl] AdvReac Severe Naseau/Vomi Verified 10/03/22 06:13 ting Home Medication Medication Instructions Recorded acetaminophen 500 mg tablet 500 mg PO QID PRN fever or pain 07/10/18 (Tylenol Extra Strength) #10 tabs diphenhydramine HCl 25 mg capsule 25 mg PO Q4H PRN Itching 11/21/18 dulaglutide 1.5 mg/0.5 mL 1.5 mg subcut QWEEK 12/03/20 [facility] gabapentin 600 mg tablet 600 mg PO HS 12/03/20 lisinopril 5 mg tablet 5 mg PO DAILY 12/03/20 meloxicam 15 mg tablet 15 mg PO DAILY 06/06/22 Current Visit Medications: Current Medications Generic Name Dose Route Start Last Admin Trade Name Freq PRN Reason Stop Dose Admin Ringer's Solution 1,000 mls @ 80 mls/hr 10/03/22 06:00 10/03/22 06:37 IV 11/01/22 23:59 80 mls/hr INFUSION KASSIE Administration Cefazolin Sodium 3,000 mg/ 100 mls @ 200 mls/hr 10/03/22 06:00 Sodium Chloride IVPB 10/03/22 18:00 PREOP KASSIE IV Miscellaneous Supplies 1 each 10/03/22 06:00 Iv Access IV 11/01/22 23:59 DIRECTED KASSIE Sodium Chloride 0 ml 10/03/22 06:00 Normal Saline Flush 10 Ml Syr IV 11/01/22 23:59 PRN PRN Sodium Chloride 0 ml 10/03/22 06:00 Normal Saline 10 Ml Vial IJ 11/01/22 23:59 DIRECTED PRN Sterile Water 0 ml 10/03/22 06:00 Water,Injection,Sterile 10 Ml Vial IJ 11/01/22 23:59 DIRECTED PRN PFSH Active Problems Active Problems: Problem Status Onset Code Bilateral carpal tunnel syndrome G56.03 Acute pain of left hip M25.552 S/P closure of ileostomy Z98.890 Diverticulitis of large intestine with complication K57.32 Iron deficiency anemia due to chronic blood loss D50.0 Chronic pain following surgery or procedure G89.28 Hypokalemia due to loss of potassium E87.6 Discharged to home Yeast dermatitis B37.2 Diarrhea R19.7 Protein deficiency E46 Fluid collection at surgical site T88.8XXA Anxiety and depression F41.9, F32.9 Fever R50.9 Hypomagnesemia E83.42 Open abdominal wall wound S31.109A Anemia of chronic disorder D63.8 Occluded PICC line T82.898A Postoperative abdominal pain R10.9, G89.18 H/O ileostomy Z98.890 High output ileostomy R19.8, Z93.2 Ileostomy dysfunction K94.13 Intra-abdominal abscess K65.1 Acute kidney insufficiency N28.9 Altered bowel elimination due to intestinal ostomy K94.19 Abdominal wall dehiscence T81.30XA S/P colectomy 09/16/18 Z90.49 Malnutrition E46 Hypokalemia E87.6 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 Abdominal pain R10.9 Diverticulitis K57.92 Hospital discharge follow-up Z09 DM2 (diabetes mellitus, type 2) E11.9 Essential hypertension I10 Perforation of sigmoid colon due to diverticulitis K57.20 Medical History Medical History Arthralgia Benign essential hypertension Body mass index (BMI) of 40.0-44.9 in adult Diverticula of colon DM2 (diabetes mellitus, type 2) Essential hypertension Fistula of intestine Foot anomaly, congenital Left hip pain Morbid obesity Paresthesia of both hands Peripheral neuropathy Recurrent major depression in remission Surgical History Surgical History History of bilateral oophorectomies History of cholecystectomy History of ureter repair Duplicate ureter, with re-implantation into bladder S/P colonoscopy Status post complete hysterectomy Tobacco Smoking/Tobacco Use Status: Former Tobacco Use Alcohol Alcohol Intake: never Substance Use Substance use: Never Substance use type: does not use Vital Signs and Lab Results Vital Signs Most Recent Vital Signs in EMR: Most Recent Vital Signs Temp Pulse Resp BP Pulse Ox 36.6 C 84 18 143/93 H 99 10/03/22 06:17 10/03/22 06:17 10/03/22 06:17 10/03/22 06:17 10/03/22 06:17 Lab Results Blood Type / Crossmatch: No Data to Display Complete Blood Count: No Data to Display Complete Metabolic Panel: No Data to Display Liver Function Panel: No Data to Display Coagulation Panel: No Data to Display Cardiac Panel: No Data to Display Arterial Blood Gas: No Data to Display Venous Blood Gas: No Data to Display Pancreas Panel: No Data to Display Thyroid Panel: No Data to Display Infectious Disease: No Data to Display Blood Cultures: No Data to Display Toxicology Panel: No Data to Display Panel: No Data to Display Anesthesia Assessment and Plan Anesthesia History Personal History: No History of Anesthesia Complications Family History: No Family History of Anesthesia Complications Exercise Tolerance Exercise Tolerance: Metabolic Equivalents<4 Pertinent Negatives Pertinent Negatives: No Symptoms of GERD, No Major Cardiovascular Symptoms or Complaints, No Major Pulmonary Symptoms or Complaints and No History of CVA/TIA Cardiac & Pulmonary Exam Cardiac Exam: Normal S1/S2 Heart Sounds Pulmonary Exam: Clear Bilateral Breath Sounds Implantable Cardiac Device Does patient have a Pacemaker or an ICD?: No Airway Exam Known Difficult Airway: No Mallampati Class: 3 Mouth Opening: Normal (> 3cm) Thyromental Distance: Greater than 3 cm Neck Range of Motion: Full ROM Neck Circumference: Thick Teeth Condition: Normal Dentition (Right fron upper severe chip, stable at present. ) ASA Classification ASA Score: ASA 3 Emergency Case?: No NPO Status NPO Status: NPO Clears >2 hours, Solids >8 hours Status Status: History of Hysterectomy Anesthesia Plan Resuscitation Status: Full Code Anesthesia Technique: General Anesthesia Airway Planned: Natural Airway Monitors Used: Standard Monitors
[2022-10-03 07:04] VITALS: BMI 39.6
[2022-10-03] MEDS: ceFAZolin 3,000 MG in Normal Saline 100 ML 200 MG IVPB (07:24)
--- NOTE | 2022-10-03 07:27 | W.PM.DSUDISC ---
Date of service: 10/03/22 Time of Service: 07:27 Discharge Plan Disposition Patient Disposition: Home Condition: Good Discharge Details Reason For Visit: Right Carpal Tunnel Syndrome Attending Provider: Chapo Salas Primary Care Provider: Adriana Desai Home Meds and New Rx's Prescriptions: New acetaminophen 500 mg tablet 500 mg PO Q6H PRN PRN (Reason: pain) Qty: 60 3RF hydrocodone-acetaminophen 5-325 mg tablet 1 tab PO Q6H PRN (Reason: pain) Qty: 8 0RF Continued diphenhydramine HCl 25 mg capsule 25 mg PO Q4H PRN gabapentin 600 mg tablet 600 mg PO HS Label Comments: TAKE 1 TABLET BY MOUTH AT BEDTIME lisinopril 5 mg tablet 5 mg PO DAILY Label Comments: TAKE 1 TABLET BY MOUTH DAILY Trulicity 1.5 mg/0.5 mL Pen Injector 1.5 mg SUBCUT QWEEK meloxicam 15 mg tablet 15 mg PO DAILY Qty: 30 3RF Discontinued acetaminophen [Tylenol Extra Strength] 500 mg tablet 500 mg PO QID PRN (Reason: fever or pain) Qty: 10 0RF Discharge Instructions Stand Alone Forms: Josue Grimes Tunnel Release Referrals: Chapo Salas MD [ [facility] STAFF PHYSICIAN] - Activity:: Elevate Remove Dressings/Wound Care:: 48 hours Shower/Bathe:: 48 hours Diet:: As Tolerated Discharge Orders Discharge Orders: Discharge Order (Routine); Ordered 10/03/22 Ordered By: Chapo Salas
[2022-10-03] MEDS: Lidocaine 1% Pres-Free W/EPI 1/200,000 10 ML VIAL (07:40)
[2022-10-03 07:45] VITALS: BP 134/77; PULSE 84; RESP 18; TEMP 36.6; O2SAT 96
--- NOTE | 2022-10-03 08:06 | W.ANESPOSTOP ---
Postoperative Evaluation Date, Time and Location Date Performed: 10/03/22 Time Performed: 08:06 Patient Location: Day Surgery Unit Vital Signs Most Recent Imported Vital Signs: Most Recent Vital Signs Temp Pulse Resp BP Pulse Ox 36.6 C 84 18 134/77 96 10/03/22 07:45 10/03/22 07:45 10/03/22 07:45 10/03/22 07:45 10/03/22 07:45 Pain Score Most Recent Pain Score: Most Recent Pain Score Pain Level 0 10/03/22 07:45 Assessment Mental Status: Awake (Alert & Oriented to Patient Baseline) Airway and Respiratory Function: Patent airway with normal (patient baseline) respiratory exam Cardiovascular Function: Hemodynamically Stable Hydration Status: Adequately Hydrated Nausea & Vomiting: No Nausea or Vomiting Pain: Pain is tolerable per patient (Ache in wrist) Peripheral Nerve Block: Patient did not receive a nerve block
[2022-10-03 08:19] VITALS: BP 129/79; PULSE 78; RESP 16; TEMP 36.6; O2SAT 98
--- NOTE | 2022-10-03 20:28 | W.PM.OP ---
Date of service: 10/03/22 Time of Service: 07:45 Operative Note Operative Note DATE OF PROCEDURE: 10/03/22 PRE-OP DIAGNOSIS: Right Carpal Tunnel Syndrome POST-OP DIAGNOSIS: same PROCEDURE: Right Endoscopic Carpal Tunnel Release SURGEON: Chapo Salas ANESTHESIA TYPE: General:No Airway Refer to Anesthesia Record ESTIMATED BLOOD LOSS: 0 PATHOLOGY: none sent TOURNIQUET TIME: 4 COMPLICATIONS: None Patient was transported to: same day Patient's condition: stable Indications: I have seen Dominique in clinic for symptoms of carpal tunnel syndrome. The numbness, tingling, and pain limited function. Clinical exam findings with nerve conduction tests confirmed the diagnosis of carpal tunnel syndrome. Nonoperative measures such as bracing, time, activity modifications had been tried but disability and pain persisted. I discussed carpal tunnel release with the patient. I reviewed the risks of the procedure to include, but not limited to, bleeding, infection, pain, stiffness, incomplete release, damage to nerves or vessels, persistent numbness, recurrence. Despite these risks, the patient elected to proceed. Findings: There was tightened carpal tunnel. This was dilated and released successfully with the endoscopic with increased space within the tunnel. The antebrachial fascia was released proximally freeing the median nerve at the wrist. Procedure Description: Dominique was greeted in the preoperative holding area where the correct side was identified and marked. The consent was reviewed with the patient and signed. The history and physical was updated. All questions were answered. Dominique was taken back to the operating room. The patient was placed into the supine position on the operating room table with the right arm on an arm board. A nonsterile tourniquet was placed high onto the arm. All bony prominences were well padded. Prophylactic antibiotics in the form of Cefazolin were administered. The right arm was then prepped with Chloraprep and draped in a standard fashion with stockinette and extremity drape. A timeout to confirm correct identity, side and site, procedure, allergies, anesthesia, and medical concerns was performed. The surgical site was marked in the volar wrist creases in line with the radial border of the fourth ray. This area was anesthetized with approximately 6cc of 1% Lidocaine. The limb was then exsanguinated with an Esmarch. The skin was incised with a 15 blade, approximately 1cm. The skin only was cut and the deeper tissue was dissected bluntly with a tenotomy scissor, avoiding passing nerve and venous structures. The fascia was penetrated and opened bluntly. A two-prong skin hook was placed under this proximal fascial edge. A series of hamate finders were used to identify and dilate the carpal tunnel. Synovial elevator was used to free synovial attachments to the underside of the transverse carpal ligament. My thumb was kept in the palm to sis the distal extent of the carpal tunnel and correctly position the hand. The Microaire endoscope was inserted without difficulty and without resistance. Excellent visualization showed horizontally running fibers of the transverse carpal ligament (TCL). The distal extent of the TCL was visualized and the end of the scope palpated with the thumb. The blade was elevated and withdrawn from distal to proximal. The TCL was split into two flaps. The endoscope was reinserted to confirm complete release and any remnant ligament was incised. The scope was withdrawn and the proximal aspect of the carpal tunnel was grossly inspected and appeared release with the median nerve visible. The antebrachial fascia at the level of the wrist was then freed from the overlying skin and then the underlying median nerve with blunt dissection. This was transected longitudinally for about 3cm proximal to the wrist incision. The wound was then irrigated with easy flow of irrigant distally and proximally. The incision was closed with a single 4-0 Nylon suture. The wound was dressed with Xeroform, Gauze, Kerlix and Reese. The tourniquet was deflated with the initial dressing and held with some pressure. Blood flow returned easily to all digits with capillary refill less than 2 seconds. The patient tolerated the procedure well and was returned to the Same Day Surgery area in a stable condition suffering no known complication.
== END 2022-10-03 08:45 | disposition home or self-care (01) ==
PROVIDERS: PCP Nurse Practitioner Family; Visit Provider Student in an Organized Health Care Education/Training Program
PROC: 01N54ZZ Release Median Nerve, Percutaneous Endoscopic Approach (ICD-10-PCS; CPT 29848; principal; 2022-10-03 07:30)
DX: G56.01 Carpal tunnel syndrome, right upper limb (principal); D50.0 Iron deficiency anemia secondary to blood loss (chronic); E11.9 Type 2 diabetes mellitus without complications
CPT/HCPCS: 29848; J0690; J1885; J2405

== ENCOUNTER 2022-10-24 07:21 | Day surgery (SDC) | payer OTHER, MEDICAID, SELFPAY ==
[2022-10-24 07:22] VITALS: BP 146/90; PULSE 85; RESP 18; TEMP 36.9; O2SAT 98
--- NOTE | 2022-10-24 07:36 | PDOC.DSDIS_ITS ---
Date of service: 10/24/22 Time of Service: 07:36 Discharge Plan Disposition Condition: Good Discharge Details Reason For Visit: L ECTR Attending Provider: Chapo Salas Primary Care Provider: Adriana Desai Home Meds and New Rx's Prescriptions: New hydrocodone-acetaminophen 5-325 mg tablet 1 tab PO Q6H PRN (Reason: pain) Qty: 6 0RF Continued diphenhydramine HCl 25 mg capsule 25 mg PO Q4H PRN gabapentin 600 mg tablet 600 mg PO HS Patient Comments: TAKE 1 TABLET BY MOUTH AT BEDTIME lisinopril 5 mg tablet 5 mg PO DAILY Patient Comments: TAKE 1 TABLET BY MOUTH DAILY Trulicity 1.5 mg/0.5 mL Pen Injector 1.5 mg SUBCUT QWEEK acetaminophen 500 mg tablet 500 mg PO Q6H PRN PRN (Reason: pain) Qty: 60 3RF meloxicam 15 mg tablet 15 mg PO DAILY Qty: 30 3RF Discharge Instructions Stand Alone Forms: Josue Grimes Tunnel Release Referrals: Chapo Salas MD [ [facility] STAFF PHYSICIAN] - Activity:: Activity as Tolerated Remove Dressings/Wound Care:: 48 hours Shower/Bathe:: 48 hours Diet:: As Tolerated DS: Diagnosis Discharge Diagnosis (1) Bilateral carpal tunnel syndrome: Status: Acute
[2022-10-24] MEDS: Lactated Ringers 1,000 ML 80 ML IV (07:57)
--- NOTE | 2022-10-24 08:22 | W.ANESPRE ---
General Info Date of Service Date Performed: 10/24/22 Height: 5 ft 9 in Weight: 122.1 kg Body Mass Index (BMI): 39.7 Surgical Procedure: Operation Date: 10/24/22 09:40 Proposed Procedure Side Surgeon p Wrist ECTR Left Chapo Salas MD Meds Allergies and Home Medications Allergies Allergy/AdvReac Type Severity Reaction Status Date / Time ciprofloxacin [From Cipro] Allergy Severe Hives Verified 10/24/22 06:39 Penicillins Allergy Mild Hives Verified 10/24/22 06:39 metronidazole [From Flagyl] AdvReac Severe [place]/Vomi Verified 10/24/22 06:39 ting Home Medication Medication Instructions Recorded diphenhydramine HCl 25 mg capsule 25 mg PO Q4H PRN Itching 11/21/18 dulaglutide 1.5 mg/0.5 mL 1.5 mg subcut QWEEK 12/03/20 [facility] gabapentin 600 mg tablet 600 mg PO HS 12/03/20 lisinopril 5 mg tablet 5 mg PO DAILY 12/03/20 acetaminophen 500 mg tablet 500 mg PO Q6H PRN PRN pain #60 tabs 10/03/22 meloxicam 15 mg tablet 15 mg PO DAILY #30 tabs 10/03/22 hydrocodone 5 mg-acetaminophen 325 1 tab PO Q6H PRN pain #6 tabs 10/24/22 mg tablet Current Visit Medications: Current Medications Generic Name Dose Route Start Last Admin Trade Name Freq PRN Reason Stop Dose Admin Acetaminophen 650 mg 10/24/22 07:35 Acetaminophen 325 Mg Tab PO Q4H PRN PRN Hydrocodone Bitart/Acetaminophen 0 tab 10/24/22 07:35 Hydrocodone 5/Acetaminophen 325 Tab PO Q3H PRN PRN Pain Ringer's Solution 1,000 mls @ 80 mls/hr 10/24/22 06:00 10/24/22 07:57 IV 11/22/22 23:59 80 mls/hr INFUSION KASSIE Administration Cefazolin Sodium 3,000 mg/ 100 mls @ 200 mls/hr 10/24/22 09:00 Sodium Chloride IVPB 10/24/22 18:00 PREOP KASSIE IV Miscellaneous Supplies 1 each 10/24/22 06:00 Iv Access IV 11/22/22 23:59 DIRECTED KASSIE Sodium Chloride 0 ml 10/24/22 06:00 Normal Saline Flush 10 Ml Syr IV 11/22/22 23:59 PRN PRN Sodium Chloride 0 ml 10/24/22 06:00 Normal Saline 10 Ml Vial IJ 11/22/22 23:59 DIRECTED PRN Sterile Water 0 ml 10/24/22 06:00 Water,Injection,Sterile 10 Ml Vial IJ 11/22/22 23:59 DIRECTED PRN PFSH Active Problems Active Problems: Problem Status Onset Code Bilateral carpal tunnel syndrome G56.03 Acute pain of left hip M25.552 S/P closure of ileostomy Z98.890 Diverticulitis of large intestine with complication K57.32 Iron deficiency anemia due to chronic blood loss D50.0 Chronic pain following surgery or procedure G89.28 Hypokalemia due to loss of potassium E87.6 Discharged to home Yeast dermatitis B37.2 Diarrhea R19.7 Protein deficiency E46 Fluid collection at surgical site T88.8XXA Anxiety and depression F41.9, F32.9 Fever R50.9 Hypomagnesemia E83.42 Open abdominal wall wound S31.109A Anemia of chronic disorder D63.8 Occluded PICC line T82.898A Postoperative abdominal pain R10.9, G89.18 H/O ileostomy Z98.890 High output ileostomy R19.8, Z93.2 Ileostomy dysfunction K94.13 Intra-abdominal abscess K65.1 Acute kidney insufficiency N28.9 Altered bowel elimination due to intestinal ostomy K94.19 Abdominal wall dehiscence T81.30XA S/P colectomy 09/16/18 Z90.49 Malnutrition E46 Hypokalemia E87.6 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 Abdominal pain R10.9 Diverticulitis K57.92 Hospital discharge follow-up Z09 DM2 (diabetes mellitus, type 2) E11.9 Essential hypertension I10 Perforation of sigmoid colon due to diverticulitis K57.20 Medical History Medical History Arthralgia Benign essential hypertension Body mass index (BMI) of 40.0-44.9 in adult Diverticula of colon DM2 (diabetes mellitus, type 2) Essential hypertension Fistula of intestine Foot anomaly, congenital Left hip pain Morbid obesity Paresthesia of both hands Peripheral neuropathy Recurrent major depression in remission Surgical History Surgical History History of bilateral oophorectomies History of carpal tunnel surgery of right wrist (10/03/22) History of cholecystectomy History of ureter repair Duplicate ureter, with re-implantation into bladder S/P colonoscopy Status post complete hysterectomy Tobacco Smoking/Tobacco Use Status: Former Tobacco Use Alcohol Alcohol Intake: never Substance Use Substance use: Never Substance use type: does not use Vital Signs and Lab Results Vital Signs Most Recent Vital Signs in EMR: Most Recent Vital Signs Temp Pulse Resp BP Pulse Ox 36.9 C 85 18 146/90 H 98 10/24/22 07:22 10/24/22 07:22 10/24/22 07:22 10/24/22 07:22 10/24/22 07:22 Lab Results Blood Type / Crossmatch: No Data to Display Complete Blood Count: No Data to Display Complete Metabolic Panel: No Data to Display Liver Function Panel: No Data to Display Coagulation Panel: No Data to Display Cardiac Panel: No Data to Display Arterial Blood Gas: No Data to Display Venous Blood Gas: No Data to Display Pancreas Panel: No Data to Display Thyroid Panel: No Data to Display Infectious Disease: No Data to Display Blood Cultures: No Data to Display Toxicology Panel: No Data to Display Panel: No Data to Display Anesthesia Assessment and Plan Anesthesia History Personal History: No History of Anesthesia Complications Family History: No Family History of Anesthesia Complications Exercise Tolerance Exercise Tolerance: Metabolic Equivalents<4 Pertinent Negatives Pertinent Negatives: No Major Cardiovascular Symptoms or Complaints and No Major Pulmonary Symptoms or Complaints Cardiac & Pulmonary Exam Cardiac Exam: Normal S1/S2 Heart Sounds Pulmonary Exam: Clear Bilateral Breath Sounds Implantable Cardiac Device Does patient have a Pacemaker or an ICD?: No Airway Exam Known Difficult Airway: No Mallampati Class: 3 Mouth Opening: Normal (> 3cm) Thyromental Distance: Greater than 3 cm Neck Range of Motion: Full ROM Neck Circumference: Thick Teeth Condition: Normal Dentition (Right fron upper severe chip, stable at present. ) ASA Classification ASA Score: ASA 3 Emergency Case?: No NPO Status NPO Status: NPO Clears >2 hours, Solids >8 hours Status Status: History of Hysterectomy Anesthesia Plan Resuscitation Status: Full Code Anesthesia Technique: General Anesthesia Airway Planned: Natural Airway Monitors Used: Standard Monitors
[2022-10-24 08:26] VITALS: BMI 39.7
[2022-10-24] MEDS: ceFAZolin 3,000 MG in Normal Saline 100 ML 200 MG IVPB (09:29)
[2022-10-24] MEDS: Lidocaine 1% Pres-Free W/EPI 1/200,000 10 ML VIAL (09:41)
[2022-10-24 09:50] VITALS: BP 146/83; PULSE 83; RESP 16; TEMP 36.5; O2SAT 97
--- NOTE | 2022-10-24 10:12 | W.PM.OP ---
Date of service: 10/24/22 Time of Service: 09:40 Operative Note Operative Note DATE OF PROCEDURE: 10/24/22 PRE-OP DIAGNOSIS: Left Carpal Tunnel Syndrome POST-OP DIAGNOSIS: same PROCEDURE: Left Endoscopic Carpal Tunnel Release SURGEON: Chapo Salas ANESTHESIA TYPE: General:No Airway Refer to Anesthesia Record ESTIMATED BLOOD LOSS: 0 PATHOLOGY: none sent TOURNIQUET TIME: 6 COMPLICATIONS: None Patient was transported to: same day Patient's condition: stable Indications: I have seen Dominique in clinic for symptoms of carpal tunnel syndrome. The numbness, tingling, and pain limited function. Clinical exam findings with nerve conduction tests confirmed the diagnosis of carpal tunnel syndrome. Nonoperative measures such as bracing, time, activity modifications had been tried but disability and pain persisted. She had a successful release of her carpal tunnel on the right side. Thus, I discussed carpal tunnel release with the patient. I reviewed the risks of the procedure to include, but not limited to, bleeding, infection, pain, stiffness, incomplete release, damage to nerves or vessels, persistent numbness, recurrence. Despite these risks, the patient elected to proceed. Findings: There was tightened carpal tunnel. This was dilated and released successfully with the endoscopic with increased space within the tunnel. There was a significant amount of synovitis in the carpal tunnel. The antebrachial fascia was released proximally freeing the median nerve at the wrist. Procedure Description: Dominique was greeted in the preoperative holding area where the correct side was identified and marked. The consent was reviewed with the patient and signed. The history and physical was updated. All questions were answered. She was taken back to the operating room. The patient was placed into the supine position on the operating room table with the left arm on an arm board. A nonsterile tourniquet was placed high onto the arm. All bony prominences were well padded. Prophylactic antibiotics in the form of Cefazolin were administered. The left arm was then prepped with Chloraprep and draped in a standard fashion with stockinette and extremity drape. A timeout to confirm correct identity, side and site, procedure, allergies, anesthesia, and medical concerns was performed. The surgical site was marked in the volar wrist creases in line with the radial border of the fourth ray. This area was anesthetized with approximately 6cc of 1% Lidocaine. The limb was then exsanguinated with an Esmarch. The skin was incised with a 15 blade, approximately 1cm. The skin only was cut and the deeper tissue was dissected bluntly with a tenotomy scissor, avoiding passing nerve and venous structures. The fascia was penetrated and opened bluntly. A two-prong skin hook was placed under this proximal fascial edge. A series of hamate finders were used to identify and dilate the carpal tunnel. Synovial elevator was used to free synovial attachments to the underside of the transverse carpal ligament. My thumb was kept in the palm to sis the distal extent of the carpal tunnel and correctly position the hand. The Microaire endoscope was inserted without difficulty and without resistance. Excellent visualization showed horizontally running fibers of the transverse carpal ligament (TCL). The distal extent of the TCL was visualized and the end of the scope palpated with the thumb. The blade was elevated and withdrawn from distal to proximal. The TCL was split into two flaps. The endoscope was reinserted to confirm complete release and any remnant ligament was incised. The scope was withdrawn and the proximal aspect of the carpal tunnel was grossly inspected and appeared release with the median nerve visible. The antebrachial fascia at the level of the wrist was then freed from the overlying skin and then the underlying median nerve with blunt dissection. This was transected longitudinally for about 3cm proximal to the wrist incision. The wound was then irrigated with easy flow of irrigant distally and proximally. The incision was closed with a single 4-0 Nylon suture. The wound was dressed with Xeroform, Gauze, Kerlix and Reese. The tourniquet was deflated with the initial dressing and held with some pressure. Blood flow returned easily to all digits with capillary refill less than 2 seconds. The patient tolerated the procedure well and was returned to the Same Day Surgery area in a stable condition suffering no known complication.
[2022-10-24 10:15] VITALS: BP 162/82; PULSE 73; RESP 16; TEMP 36.1; O2SAT 98
--- NOTE | 2022-10-24 10:41 | W.ANESPOSTOP ---
Postoperative Evaluation Date, Time and Location Date Performed: 10/24/22 Time Performed: 10:38 Patient Location: Day Surgery Unit Vital Signs Most Recent Imported Vital Signs: Most Recent Vital Signs Temp Pulse Resp BP Pulse Ox 36.1 C L 73 16 162/82 H 98 10/24/22 10:15 10/24/22 10:15 10/24/22 10:15 10/24/22 10:15 10/24/22 10:15 Pain Score Most Recent Pain Score: Most Recent Pain Score Pain Level 0 10/24/22 10:15 Assessment Mental Status: Awake (Alert & Oriented to Patient Baseline) Airway and Respiratory Function: Patent airway with normal (patient baseline) respiratory exam Cardiovascular Function: Hemodynamically Stable Hydration Status: Adequately Hydrated Nausea & Vomiting: No Nausea or Vomiting Pain: Pt. Denies Any Pain Peripheral Nerve Block: Patient did not receive a nerve block
== END 2022-10-24 10:40 | disposition home or self-care (01) ==
PROVIDERS: PCP Nurse Practitioner Family; Visit Provider Student in an Organized Health Care Education/Training Program
PROC: 01N54ZZ Release Median Nerve, Percutaneous Endoscopic Approach (ICD-10-PCS; CPT 29848; principal; 2022-10-24 09:30)
DX: G56.03 Carpal tunnel syndrome, bilateral upper limbs (principal)
CPT/HCPCS: 29848; J0690; J1885; J2250; J2405

== ENCOUNTER 2022-11-20 18:02 | Emergency (ER) | payer OTHER, MEDICAID, SELFPAY ==
[2022-11-20 18:12] VITALS: BP 140/82; PULSE 91; RESP 17; TEMP 36.8; O2SAT 100
[2022-11-20] MEDS: Tetracaine 0.5% 4 ML BTL OP (18:52)
[2022-11-20] MEDS: Fluorescein STRIPS 100/BOX 1 MG OP (18:52)
--- NOTE | 2022-11-20 20:12 | ED.GENADUL_ITS ---
Discharge Plan Disposition Patient Disposition: Home Discharge Details Clinical Impression: Corneal ulcer, Keratitis Primary Care Provider: Adriana Desai ED Provider: Poppy Ricci Home Meds and New Rx's Prescriptions: Continued diphenhydramine HCl 25 mg capsule 25 mg PO Q4H PRN gabapentin 600 mg tablet 600 mg PO HS Patient Comments: TAKE 1 TABLET BY MOUTH AT BEDTIME lisinopril 5 mg tablet 5 mg PO DAILY Patient Comments: TAKE 1 TABLET BY MOUTH DAILY Trulicity 1.5 mg/0.5 mL Pen Injector 1.5 mg SUBCUT QWEEK acetaminophen 500 mg tablet 500 mg PO Q6H PRN PRN (Reason: pain) Qty: 60 3RF meloxicam 15 mg tablet 15 mg PO DAILY Qty: 30 3RF Discharge Instructions Additional Instructions: Please follow-up with [facility] [phone], if you do not hear from them in the morning, call and tell them this is an ER follow-up and you should be reevaluated on Saturday Use the eyedrops as prescribed, both the Polytrim and the tobramycin You may use Acular as needed for pain You also have tetracaine, you should not use more than 1 drop every hour and for no longer than 24 hours Return immediately should you have new or worsening complaints Referrals: Adriana Desai [Primary Care Provider] - Discharge Data Discharge Date/Time-TO BE ENTERED AT DEPARTURE: 11/20/22 20:28 Medical Decision Making This patient presents with ocular complaint of left eye pain, no history of similar, does not wear contact lenses Corneal ulcer with keratitis noted on slit-lamp exam, secondary to numerous allergies, pharmacy consulted, will start patient on Polytrim and tobramycin for full spectrum coverage No foreign body noted under lids bilaterally No proptosis, pupil equal round reactive to light and accommodation, ocular pressure 18.5 Patient will need close outpatient follow-up, placed on list to be reevaluated by ophthalmology tomorrow Return precautions reviewed and patient expressed understanding Relayed the importance of reassessment tomorrow Patient visual acuity initially was 20/200, with pinhole correction she is 20/50 to left eye and 20/30 to right eye, 20/30 OU, negative symptoms and Medical Records Medical records reviewed: Yes I reviewed the patient's medical records. Lab Data Lab results reviewed: Yes I reviewed the patient's lab results. HPI General Date/Time Provider Initiated Documentation: 11/20/22 18:15 . HPI Narrative: This 60-year-old female presents with report of left eye issue, light sensitivity with burning. Denies known injury. States symptoms began this mor katja. Denies any headache or eye pressure. Was evaluated at [facility] and sent to the emergency department for reassessment denies history of similar symptoms in the past. Denies any chemical exposures. States the pain was actually improved with tetracaine instillation. Related Data Home Medications Medication Instructions Recorded Confirmed diphenhydramine HCl 25 mg capsule 25 mg PO Q4H PRN Itching 11/21/18 11/20/22 dulaglutide 1.5 mg/0.5 mL 1.5 mg subcut QWEEK 12/03/20 11/20/22 subcutaneous pen injector (Trulicity) gabapentin 600 mg tablet 600 mg PO HS 12/03/20 11/20/22 lisinopril 5 mg tablet 5 mg PO DAILY 12/03/20 11/20/22 acetaminophen 500 mg tablet 500 mg PO Q6H PRN PRN pain #60 tabs 10/03/22 11/20/22 meloxicam 15 mg tablet 15 mg PO DAILY #30 tabs 10/03/22 11/20/22 Previous Rx's Medication Instructions Recorded acetaminophen 500 mg tablet 500 mg PO Q6H PRN PRN pain #60 tabs 10/03/22 meloxicam 15 mg tablet 15 mg PO DAILY #30 tabs 10/03/22 Allergies Allergy/AdvReac Type Severity Reaction Status Date / Time ciprofloxacin [From Cipro] Allergy Severe Hives Verified 11/20/22 18:16 Penicillins Allergy Mild Hives Verified 11/20/22 18:16 metronidazole [From Flagyl] AdvReac Severe [place]/Vomi Verified 11/20/22 18:16 ting General Stated Complaint: EyeProblem SHY: 4 PFSH All Active Problems (Updated 11/20/22 @ 19:54 by KUSHAL Baez) Corneal ulcer (Acute) Keratitis (Acute) Bilateral carpal tunnel syndrome (Acute) S/P Right ECTR: 10/03/2022 S/P Left ECTR: 10/24/2022 Acute pain of left hip (Acute) S/P closure of ileostomy (Acute) Iron deficiency anemia due to chronic blood loss (Acute) Chronic pain following surgery or procedure (Acute) Hypokalemia due to loss of potassium (Acute) Discharged to home (Acute) Yeast dermatitis (Acute) Diarrhea (Acute) Protein deficiency (Acute) Fluid collection at surgical site (Acute) Anxiety and depression (Acute) Fever (Acute) Hypomagnesemia (Acute) Open abdominal wall wound (Acute) Anemia of chronic disorder (Acute) Occluded PICC line (Acute) Postoperative abdominal pain (Acute) H/O ileostomy (Chronic) High output ileostomy (Acute) Ileostomy dysfunction (Acute) Intra-abdominal abscess (Acute) Acute kidney insufficiency (Acute) Altered bowel elimination due to intestinal ostomy (Acute) Abdominal wall dehiscence (Acute) S/P colectomy (Acute 09/16/18) enbloc low anterior colonic resection with 2 segments of small bowel and mass resection, small bowel resection x2 with anastomosis, splenic flexure mobilization, hernia repair x 2, loop ileostomy, lysis of adhesions, rigid sigmoidoscopy. Malnutrition (Acute) Hypokalemia (Acute) Fistula of small intestine (Acute) Abdominal pain (Acute) Diverticulitis (Chronic) Hospital discharge follow-up (Acute) DM2 (diabetes mellitus, type 2) (Chronic) Essential hypertension (Chronic) Perforation of sigmoid colon due to diverticulitis (Acute) Medical History Arthralgia Benign essential hypertension Body mass index (BMI) of 40.0-44.9 in adult Diverticula of colon DM2 (diabetes mellitus, type 2) Essential hypertension Fistula of intestine Foot anomaly, congenital Left hip pain Morbid obesity Paresthesia of both hands Peripheral neuropathy Recurrent major depression in remission Surgical History History of bilateral oophorectomies History of carpal tunnel surgery of right wrist (10/03/22) History of cholecystectomy History of ureter repair Duplicate ureter, with re-implantation into bladder S/P colonoscopy Status post complete hysterectomy Family History Father CAD (coronary artery disease) AMI (acute myocardial infarction) Maternal Aunt Breast cancer Social History Smoking/Tobacco Use Status: Former Tobacco Use Quit Date: 09/10/18 Smoking risk assessment performed?: Yes Alcohol Intake: never Drug use: Never Substance use type: does not use Household members: spouse Current gender identity: female Do you feel safe at home: Yes Do you feel safe in your relationship?: Yes Exam Const General: cooperative, comfortable and no acute distress HENMT Head: normal to inspection Eyes Eyes/upper lids images: 1. Corneal ulcer noted with punctate uptake on cornea, Eye pressure 18 Course Vital Signs Vital signs: Vital Signs Temperature 36.8 C 11/20/22 18:12 Pulse 91 H 11/20/22 18:12 Respiratory Rate 17 11/20/22 18:12 Blood Pressure 140/82 11/20/22 18:12 Pulse Oximetry 100 11/20/22 18:12 Temperature 36.8 C 11/20/22 18:12 Temperature Source Tympanic 11/20/22 18:12 Pulse 91 H 11/20/22 18:12 Respiratory Rate 17 11/20/22 18:12 Respiratory Effort Normal 11/20/22 18:14 Blood Pressure 140/82 11/20/22 18:12 Blood Pressure Position Sitting 11/20/22 18:12 Pulse Oximetry 100 11/20/22 18:12 Oxygen Delivery Method Room Air 11/20/22 18:12 Oxygen Flow Rate 0 11/20/22 18:12 Pain Level 0 11/20/22 18:12
[2022-11-20] MEDS: Polymyxin B/Trimethoprim Ophth Soln 10 ML BTL OS (20:22)
== END 2022-11-20 20:28 | disposition home or self-care (01) ==
PROVIDERS: Emergency Provider Physician Assistant; PCP Nurse Practitioner Family
DX: H16.002 Unspecified corneal ulcer, left eye (principal); H16.9 Unspecified keratitis; I10 Essential (primary) hypertension; E11.9 Type 2 diabetes mellitus without complications
CPT/HCPCS: 99282; J3490

== ENCOUNTER 2022-12-06 03:44 | Outpatient (CLI) | payer OTHER, MEDICAID, SELFPAY ==
[2022-12-06 16:35] LABS: Abs Immature Grans 0.02 10^3/uL (0.0-0.06); Absolute Basophil Count 0.05 10^3/uL (0.0-0.2); Absolute Eosinophil Count 0.15 10^3/uL (0.0-0.7); Absolute Lymphocyte Count 2.71 10^3/uL (1.2-3.4); Absolute Monocyte Count 0.39 10^3/uL (0.1-0.8); Absolute Neutrophil Count 3.78 10^3/uL (1.2-6.7); Basophils % 0.7; ESR 20 mm/hr (0-30); Eosinophils % 2.1; HCT 44.2 % (36.0-46.0); HGB 15.6 g/dL (11.2-15.7); Immature Grans % 0.3; Lymphocytes % 38.2; MCH 30.4 pg (27.0-33.0); MCHC 35.3 % (32.0-36.0); MCV 86 fL (80-95); MPV 10.5 fL (8.0-11.0); Monocytes % 5.5; Neutrophils % 53.2; Platelet Count 170 10^3/uL (130-400); RBC 5.13 10^6/uL (3.93-5.22); RDW 12.7 % (11.7-14.6); RDW-SD 39.8 fL
[2022-12-06 17:46] LABS: C-Reactive Protein 0.31 mg/dL (0.0-0.3)
[2022-12-07 19:53] LABS: Rheumatoid Factor <8.6 IU/mL (<12.0)
[2022-12-10 08:12] LABS: HLA-B27 Result Negative
[2022-12-10 10:25] LABS: Lyme Ab w Rflx to Lyme Confirm Negative (Negative)
[2022-12-10 12:56] LABS: SS-A Antibody 1.7 Units (<20.0)
[2022-12-10 13:06] LABS: SS-B (La) Ab, IgG 1.9 Units (<20.0)
[2022-12-10 16:08] LABS: ANA Interpretation Negative (Negative)
== END 2022-12-06 03:45 | disposition home or self-care (01) ==
PROVIDERS: PCP Nurse Practitioner Family; Visit Provider Optometrist
DX: M35.00 Sjogren syndrome, unspecified (principal)
CPT/HCPCS: 36415; 85652; 86812; 85025; 86038; 86140; 86235; 86431; 86618

== ENCOUNTER 2023-02-01 18:19 | Outpatient (REF) | payer OTHER, SELFPAY ==
[2023-02-01 18:59] LABS: Abs Immature Grans 0.02 10^3/uL (0.0-0.06); Absolute Basophil Count 0.04 10^3/uL (0.0-0.2); Absolute Eosinophil Count 0.14 10^3/uL (0.0-0.7); Absolute Lymphocyte Count 2.37 10^3/uL (1.2-3.4); Absolute Monocyte Count 0.55 10^3/uL (0.1-0.8); Absolute Neutrophil Count 5.79 10^3/uL (1.2-6.7); Basophils % 0.4; Eosinophils % 1.6; HCT 46.9 % (36.0-46.0); HGB 16.2 g/dL (11.2-15.7); Immature Grans % 0.2; Lymphocytes % 26.6; MCH 30.1 pg (27.0-33.0); MCHC 34.5 % (32.0-36.0); MCV 87 fL (80-95); MPV 11.5 fL (8.0-11.0); Monocytes % 6.2; Platelet Count 179 10^3/uL (130-400); RBC 5.39 10^6/uL (3.93-5.22); RDW 12.4 % (11.7-14.6); RDW-SD 39.7 fL; WBC 8.91 10^3/uL (4.4-10.8)
[2023-02-01 19:12] LABS: ALT 42 U/L (14-59); AST 31 U/L (15-37); Albumin 3.8 g/dL (3.4-5.0); Alkaline Phosphatase 78 U/L (46-116); Anion Gap 9.9 mmol/L (3-11); BUN 14 mg/dL (7-18); Bilirubin, Total 0.9 mg/dL (0.2-1.0); CO2 27.1 mmol/L (21.0-32.0); CREATININE 0.8 mg/dL (0.55-1.02); Calcium 9.5 mg/dL (8.5-10.1); Calculated LDL 95 mg/dL (<100); Chloride 105 mmol/L (98-107); Cholesterol 170 mg/dL (<200); Estimated GFR 89.15 (mL/min/1.73m2); Glucose 115 mg/dL (74-106); HDL Cholesterol 57 mg/dL (40-60); Sodium 142 mmol/L (136-145); Triglyceride 94 mg/dL (<150)
[2023-02-01 19:39] LABS: Hemoglobin A1C 5.3 % (<5.7)
== END 2023-02-01 18:20 | disposition home or self-care (01) ==
LOC: NCHCN 18:19
PROVIDERS: PCP Nurse Practitioner Family; Visit Provider Nurse Practitioner Family
DX: E11.49 Type 2 diabetes mellitus with other diabetic neurological complication (principal); R19.7 Diarrhea, unspecified; Z00.00 Encounter for general adult medical examination without abnormal findings
CPT/HCPCS: 80053; 80061; 83036; 85025

== ENCOUNTER 2023-02-05 08:18 | Outpatient (REF) | payer OTHER, SELFPAY ==
[2023-02-05 10:39] LABS: C Diff PCR Negative (Negative)
[2023-02-05 23:59] LABS: Campylobacter PCR Negative (Negative); Salmonella PCR Negative (Negative); Shiga Toxin PCR Negative (Negative); Shigella/Enteroinvasive Ecoli Negative (Negative)
== END 2023-02-05 08:19 | disposition home or self-care (01) ==
LOC: NCHCN 08:18
PROVIDERS: PCP Nurse Practitioner Family; Visit Provider Nurse Practitioner Family
DX: R19.7 Diarrhea, unspecified (principal)
CPT/HCPCS: 87493; 87505